=== PATIENT | female | born 1945 | race Caucasian/White ===

== ENCOUNTER 2016-11-05 11:35 | Emergency (ER) | payer OTHER ==
[~2016-11-05] VITALS: Ht 152.4 cm; Wt 89.0 kg
[~2016-11-05 11:35] MED LIST: ACET-1257 PO; ALLO100T PO; AMIO200T4 PO; ASPI81TA28 PO; CALC1TAB23 PO; CLON0.5T3 PO; GABA1CAP PO; INSU100I2 SC; INSUINJ4 SQ; LORA-741 PO; LPT/40 PO; MULTTAB58 PO; NITR0.4S UT; NXM/40 PO; OXGN; SERT100T PO; TRAM-10 PO; ZNTT/150 PO
[2016-11-05 11:43] VITALS: TEMP 36.7; Ht 152.4 cm; Wt 89.0 kg
[2016-11-05] MEDS ORDERED: HYDR-5688 PO (12:19)
[2016-11-05 12:36] LABS: BASO % 0.3 %; BASO ABS # 0.02 K/uL (0-0.2); COMPLETE YES; EOS % 2.7 %; HEMATOCRIT 34.9 % (37-47); IG% 0.5 %; LYMPH % 11.5 %; LYMPH ABS # 0.71 K/uL (1.2-3.4); MEAN CELL VOLUME 100.9 fL (80-100); MEAN CORPUSCULAR HEMOGLOBIN 32.7 pg (25-34); MEAN CORPUSCULAR HGB CONC 32.4 g/dl (32-36); MEAN PLATELET VOLUME 11.3 fL (7.4-10.4); MONO % 6.9 %; NEUT % 78.1 %; PLATELET COUNT 125 K/uL (130-400); RED BLOOD COUNT 3.46 M/uL (4.2-5.4)
--- NOTE | 2016-11-05 13:07 | DIAGNOSTIC IMAGING REPORT ---
SINGLE VIEW CHEST CLINICAL HISTORY: Cough and chills. FINDINGS: An AP, portable, upright chest radiograph is compared to study dated 05/23/2016 and correlated with chest CT dated 11/15/2015. The examination is degraded by portable technique, apical and out of positioning, large body habitus, and patient rotation. A 2-lead cardiac pacemaker is unchanged in position and partially obscures the right mid chest. The heart is enlarged and there is atherosclerotic calcification of the thoracic aorta. There is mild pulmonary vascular congestion. No airspace consolidation, large pleural effusion, or pneumothorax is seen. The skeletal structures are osteopenic. The bony thorax is grossly intact. IMPRESSION: 1. Cardiomegaly and cardiac pacemaker with evidence of mild congestive failure. 2. No airspace consolidation or large pleural effusion is seen. Electronically signed by: Rey Cardoza M.D. 11/05/2016 1:05 PM
[2016-11-05 13:09] LABS: CALCIUM 9.3 mg/dl (8.5-10.1); CREATININE 6.2 mg/dl (0.60-1.20); POTASSIUM 4.4 mmol/L (3.5-5.1)
--- NOTE | 2016-11-05 13:19 | EMERGENCY ROOM VISIT NOTE ---
History Report prepared by Nic: Jf Treviño Under the Supervision of: Dr. Venkatesh Weston M.D. First contact with patient: 12:12 Chief Complaint: COUGH Stated Complaint: COUGH, SOB Nursing Triage Summary: c/o dry cough and c/o chronic back pain dialysis pt History of Present Illness The patient is a 71 year old female who presents to the Emergency Room with complaints of a persistent cough beginning a few days ago. She has associated subjective fevers, nausea, and diarrhea. She denies any vomiting. The patient is on dialysis. She had her flu shot this year. She notes that she has been having some intermittent chest pains for "a while". The patient is on oxygen by nasal cannula at home. Source of History: patient Onset: a few days ago Quality: other (cough) Timing: other (persistent) Associated Symptoms: + diarrhea, + fevers (subjective), + nausea, No vomiting Review of Systems See HPI for pertinent positives & negatives. A total of 10 systems reviewed and were otherwise negative. Past Medical & Surgical Medical Problems: (1) Atrial fibrillation (2) Cardiomegaly (3) Diabetic neuropathy (4) DM2 (diabetes mellitus, type 2) (5) End stage renal disease (6) AC (generalized anxiety disorder) (7) GERD (gastroesophageal reflux disease) (8) Healed or old pulmonary embolism (9) Heart failure (10) HLD (hyperlipidemia) (11) HTN (hypertension) (12) Melanoma (13) Obesity hypoventilation syndrome (14) EV[place] (obstructive sleep apnea) (15) Pacemaker (16) Pulmonary HTN (17) TIA (transient ischemic attack) Surgical Problems: (1) H/O total hysterectomy (2) S/P cholecystectomy (3) S/P IVC filter Family History Diabetes mellitus FH: heart disease Kidney disease Social History Smoking Status: Former Smoker Occupation Status: retired Current/Historical Medications Scheduled Allopurinol (Zyloprim), 100 MG PO QAM Amiodarone Hcl (Cordarone), 400 MG PO DAILY Aspirin (Aspirin Ec), 1 TAB PO QAM Atorvastatin (Lipitor), 40 MG PO QPM Calcium Acetate (Phosphate Bin (Calcium Acetate), 1 TAB PO TIDM Esomeprazole Magnesium (Nexium), 40 MG PO DAILY Gabapentin (Neurontin), 100 MG PO BID Insulin Glargine (Lantus Solostar Pen), 10 UNIT SQ HS Insulin Lispro (Human) (Humalog Kwikpen), 5 UNITS SC AC Multiple Vitamin (Multivitamin), 1 TAB PO QAM Nitroglycerin (Nitrostat), 0.4 MG UT PRN Sertraline Hcl (Zoloft), 100 MG PO QPM Scheduled PRN Acetaminophen (Tylenol Extra Strength), 1 TAB PO Q4HPRN PRN for Pain Clonazepam (Klonopin), 0.5 MG PO UD PRN for Anxiety Hydrocodone/Acetaminophen 5MG/325MG ([place] 5MG/325MG), 1 TABLET PO Q6 PRN for Pain Lorazepam (Ativan), 0.5 MG PO TID PRN for Anxiety/Agitation Oxygen (Oxygen), 2 LITERS NA HS PRN for AND WITH EXERTION Ranitidine (Zantac), 150 MG PO BID PRN for Heartburn Allergies Coded Allergies: Iodinated Diagnostic Agents (Verified Allergy, Mild, "Contrast Media" -- unknown rxn, 11/05/16) Adhesives (Verified Allergy, Unknown, "Tape" -- unknown rxn, 11/05/16) Morphine (Unverified Allergy, Unknown, UNKNOWN, 11/05/16) Warfarin (Unverified Allergy, Unknown, HYPERSENSITIVITY/BLEEDING, 11/05/16) Tomato (Verified Adverse Reaction, Intermediate, GI SYMPTOMS, 11/05/16) Tomato products cause diarrhea. Physical Exam Vital Signs Date Time Temp Pulse Resp B/P Pulse Ox O2 Delivery O2 Flow Rate FiO2 11/05/16 13:57 79 18 153/75 96 11/05/16 11:43 36.7 70 20 135/64 92 2.0 Physical Exam GENERAL: Patient is well appearing and in minimal distress. HEENT: No acute trauma, normocephalic atraumatic, mucous membranes moist, rhinorrhea bilateral nares, no nasal congestion, no scleral icterus. NECK: No stridor, no adenopathy, no meningismus, trachea is midline. LUNGS: No dyspnea. Clear to auscultation and equal bilaterally. No wheeze, no rhonchi. HEART: Irregular rate with a regular rhythm. No murmurs, rubs, gallops appreciated. ABDOMEN: Soft, nontender, bowel sounds positive, no masses appreciated, no peritonitis. BACK: No midline tenderness, no CVA tenderness EXTREMITIES: Normal motion all extremities, no cyanosis, no edema. NEUROLOGIC: Alert and oriented, no acute motor or sensory deficits, no focal weakness, cranial nerves grossly intact. SKIN: No rash, no jaundice, no diaphoresis. Medical Decision & Procedures ER Provider Diagnostic Interpretation: X ray results are stated below per my interpretation and the radiologist's interpretation. SINGLE VIEW CHEST FINDINGS: An AP, portable, upright chest radiograph is compared to study dated 05/23/2016 and correlated with chest CT dated 11/15/2015. The examination is degraded by portable technique, apical and out of positioning, large body habitus, and patient rotation. A 2-lead cardiac pacemaker is unchanged in position and partially obscures the right mid chest. The heart is enlarged and there is atherosclerotic calcification of the thoracic aorta. There is mild pulmonary vascular congestion. No airspace consolidation, large pleural effusion, or pneumothorax is seen. The skeletal structures are osteopenic. The bony thorax is grossly intact. IMPRESSION: 1. Cardiomegaly and cardiac pacemaker with evidence of mild congestive failure. 2. No airspace consolidation or large pleural effusion is seen. Electronically signed by: Rey Cardoza M.D. Laboratory Results 11/05/16 12:20 Red Blood Count 3.46, Mean Corpuscular Volume 100.9, Mean Corpuscular Hemoglobin 32.7, Mean Corpuscular Hemoglobin Concent 32.4, Mean Platelet Volume 11.3, Neutrophils (%) (Auto) 78.1, Lymphocytes (%) (Auto) 11.5, Monocytes (%) ( Auto) 6.9, Eosinophils (%) (Auto) 2.7, Basophils (%) (Auto) 0.3, Neutrophils # ( Auto) 4.84, Lymphocytes # (Auto) 0.71, Monocytes # (Auto) 0.43, Eosinophils # ( Auto) 0.17, Basophils # (Auto) 0.02 11/05/16 12:20 Test 11/05/16 12:20 White Blood Count 6.20 K/uL (4.8-10.8) Red Blood Count 3.46 M/uL (4.2-5.4) Hemoglobin 11.3 g/dL (12.0-16.0) Hematocrit 34.9 % (37-47) Mean Corpuscular Volume 100.9 fL (80-100) Mean Corpuscular Hemoglobin 32.7 pg (25-34) Mean Corpuscular Hemoglobin Concent 32.4 g/dl (32-36) Platelet Count 125 K/uL (130-400) Mean Platelet Volume 11.3 fL (7.4-10.4) Neutrophils (%) (Auto) 78.1 % Lymphocytes (%) (Auto) 11.5 % Monocytes (%) (Auto) 6.9 % Eosinophils (%) (Auto) 2.7 % Basophils (%) (Auto) 0.3 % Neutrophils # (Auto) 4.84 K/uL (1.4-6.5) Lymphocytes # (Auto) 0.71 K/uL (1.2-3.4) Monocytes # (Auto) 0.43 K/uL (0.11-0.59) Eosinophils # (Auto) 0.17 K/uL (0-0.5) Basophils # (Auto) 0.02 K/uL (0-0.2) RDW Standard Deviation 58.0 fL (36.4-46.3) RDW Coefficient of Variation 15.9 % (11.5-14.5) Immature Granulocyte % (Auto) 0.5 % Immature Granulocyte # (Auto) 0.03 K/uL (0.00-0.02) Anion Gap 10.0 mmol/L (3-11) Est Creatinine Clear Calc Drug Dose 8.0 ml/min Estimated GFR () 7.1 Estimated GFR (Non- 6.2 BUN/Creatinine Ratio 5.0 (10-20) Calcium Level 9.3 mg/dl (8.5-10.1) Troponin I 0.047 ng/ml (0-0.045) Influenza Type A Antigen Neg for Influ A (NEG) Influenza Type B Antigen Neg for Influ B (NEG) Laboratory results as reviewed by me. Medications Administered Medications (Trade) Dose Ordered Sig/Tyesha Route Start Time Stop Time Status Last Admin Dose Admin Ondansetron HCl (ZOFRAN ODT 4MG Home Pack) 1 homepack UD ONCE PO 11/05/16 13:30 11/05/16 13:31 DC 11/05/16 13:30 1 HOMEPACK ECG Indication: other (cough) Rate (beats per minute): 70 Rhythm: other (AV paced) Findings: LBBB, prolonged QT ED Course 1212: The patient was evaluated in room A4. A complete history and physical exam was performed. 1315: I checked in on the patient. She is resting comfortably. She would like something for nausea at home. 1330: Reevaluated the patient. Discussed results and discharge instructions: she verbalized understanding and agreement. The patient is ready for discharge. Ordered Zofran Odt 4 mg home pack PO. Medical Decision Differential: Viral, Pharyngitis, Cellulitis, Pneumonia, Influenza, Meningitis, Sepsis, Bacteremia, UTI/Pyelonephritis, Endocrine, Toxicologic, amongst other pathologies entertained. 71 yr old female arrives with cough, runny nose and body aches as well as some nausea. Looks well and in no distress breathing comfortably. Work-up unremarkable. Trop is at baseline. CR consistent with her renal failure on dialysis. CXR without pneumonia. Flu negative. Symptoms ongoing a few days thus would not be tamiflu patient. She is stable, no distress and looks well. Comfortable with discharge. Home with zofran PRN if nausea returns. Impression Primary Impression: Upper respiratory infection Additional Impression: Nausea Scribe Attestation The scribe's documentation has been prepared under my direction and personally reviewed by me in its entirety. I confirm that the note above accurately reflects all work, treatment, procedures, and medical decision making performed by me. Departure Information Dispostion Home / Self-Care Referrals Princess Grant M.D. (PCP) Patient Instructions A Signature Page, [facility] [place], My [facility]
[2016-11-05] MEDS ORDERED: ONDANSETRON HOME PACK 4MG OD TAB PO ONE (13:30)
[2016-11-05 13:57] VITALS: BP 153/75; PULSE 79; O2SAT 96
[2016-11-11] MEDS ORDERED: ATRINS INH (16:36)
[2016-11-11] MEDS ORDERED: PRED10TA PO (16:36)
[2016-11-11] MEDS ORDERED: XPNINS INH (16:36)
[2016-11-11] MEDS ORDERED: GUAI1TAB68 PO (16:36)
[2016-11-11] MEDS ORDERED: ZTHM250 PO (16:36)
[2016-11-11] MEDS ORDERED: HYDR-5688 PO (16:50)
[2016-11-17] MEDS ORDERED: AZIT250T5 PO (10:54)
== END 2016-11-05 13:59 | disposition home or self-care (01) ==
LOC: C.EDB 11:36 → C.EDA 13:59
DX: J06.9 Acute upper respiratory infection, unspecified (principal); R11.0 Nausea; G89.29 Other chronic pain; I50.9 Heart failure, unspecified; I48.91 Unspecified atrial fibrillation; K21.9 Gastro-esophageal reflux disease without esophagitis; Z99.2 Dependence on renal dialysis; Z86.73 Personal history of transient ischemic attack (TIA), and cerebral infarction without residual deficits; Z79.82 Long term (current) use of aspirin; E78.5 Hyperlipidemia, unspecified; I12.0 Hypertensive chronic kidney disease with stage 5 chronic kidney disease or end stage renal disease; G47.33 Obstructive sleep apnea (adult) (pediatric); N18.6 End stage renal disease; Z87.891 Personal history of nicotine dependence

== ENCOUNTER 2016-11-08 16:16 | Inpatient (IN) | payer OTHER ==
[~2016-11-08] VITALS: Ht 152.4 cm; Wt 89.0 kg
[~2016-11-08 16:16] MED LIST changes: +HYDR-5688 PO; -TRAM-10 PO
[2016-11-08] MEDS ORDERED: ALBUTEROL 0.083% NEBU SOLN 3 ML VIAL INH STA (16:48)
[2016-11-08 16:56] LABS: BASO % 0.3 %; BASO ABS # 0.03 K/uL (0-0.2); COMPLETE YES; EOS % 1.2 %; HEMATOCRIT 34.9 % (37-47); IG% 0.2 %; LYMPH % 14.3 %; LYMPH ABS # 1.31 K/uL (1.2-3.4); MEAN CELL VOLUME 98.3 fL (80-100); MEAN CORPUSCULAR HEMOGLOBIN 31.3 pg (25-34); MEAN CORPUSCULAR HGB CONC 31.8 g/dl (32-36); MEAN PLATELET VOLUME 11.6 fL (7.4-10.4); MONO % 5.4 %; NEUT % 78.6 %; PLATELET COUNT 137 K/uL (130-400); RED BLOOD COUNT 3.55 M/uL (4.2-5.4); WHITE BLOOD COUNT 9.15 K/uL (4.8-10.8)
--- NOTE | 2016-11-08 17:09 | DIAGNOSTIC IMAGING REPORT ---
CHEST ONE VIEW PORTABLE CLINICAL HISTORY: cough sob dyspnea COMPARISON STUDY: 11/05/2016 FINDINGS: Moderate increase in cardiac size. Permanent bipolar cardiac pacemaker. Diaphragms smooth. Pulmonary vasculature is prominent. IMPRESSION: Congestive heart failure Electronically signed by: Ben Carranza M.D. 11/08/2016 5:07 PM
[2016-11-08] MEDS ORDERED: ACETAMINOPHEN 500 MG TAB PO STA (17:18)
[2016-11-08 17:20] LABS: PROTHROMBIN TIME (PATIENT) 10.8 SECONDS (9.0-12.0)
[2016-11-08 17:33] LABS: BUN/CREATININE RATIO 5.7 (10-20); CALCIUM 9.4 mg/dl (8.5-10.1); CREATININE 7.4 mg/dl (0.60-1.20); POTASSIUM 4.4 mmol/L (3.5-5.1)
[2016-11-08] MEDS ORDERED: ASPIRIN 81 MG CHEW PO STA (17:45)
[2016-11-08] MEDS ORDERED: LEVAQUIN 500MG / 100ML D5W IV ONE (18:00)
--- NOTE | 2016-11-08 18:13 | EMERGENCY ROOM VISIT NOTE ---
History Report prepared by Nic: Yesenia Alcocer Under the Supervision of: Dr. William Victoria D.O. First contact with patient: 16:42 Chief Complaint: SHORTNESS OF BREATH Stated Complaint: SOB Nursing Triage Summary: pt arrived als from home reported sob, took to puffs of albuteral, pt denies chest pain,n/v. pt reports being here a few days prior for a virus and was on her way to her pcp for a sinus infection when she needed to come to the er. hx of chf and is on dialysis due 11/09/16 History of Present Illness The patient is a 71 year old female who presents to the Emergency Room with complaints of worsening shortness of breath that started [employer]. The patient came to the ED via ambulance from home. She received two puffs of an albuterol inhaler en route. The patient was seen in the ED a few days ago and diagnosed with Influenza. She did not take Tamiflu. The patient was getting ready to go to her PCP earlier today for a sinus infection when she became very short of breath and felt like she needed to come to the ED. The patient has an inhaler at home but it only offered her minimal relief of her symptoms. The patient is on 2 L of nasal cannula oxygen at night and whenever she walks. She is also experiencing a productive cough with dark yellow sputum along with chills and back pain. The patient has been experiencing chest pain with coughing. She also notes that she had 2 episodes where she will experience substernal chest pain following ambulation. She denies nausea and vomiting. The patient receives dialysis 3 times a week. She received a full course of dialysis yesterday. The patient states that she has end stage renal failure and only makes a small amount of urine. The patient denies pain or burning with urination but states that she has been experiencing increased urinary urgency. The patient has a history of congestive heart failure. Source of History: patient Onset: [employer] Position: chest Quality: other (shortness of breath) Timing: worsening Associated Symptoms: + back pain, + chest pain (with coughing), + chills, + cough (productive with dark yellow sputum), No nausea, No vomiting Review of Systems See HPI for pertinent positives & negatives. A total of 10 systems reviewed and were otherwise negative. Past Medical & Surgical Medical Problems: (1) Atrial fibrillation (2) Cardiomegaly (3) Diabetic neuropathy (4) DM2 (diabetes mellitus, type 2) (5) End stage renal disease (6) AC (generalized anxiety disorder) (7) GERD (gastroesophageal reflux disease) (8) Healed or old pulmonary embolism (9) Heart failure (10) HLD (hyperlipidemia) (11) HTN (hypertension) (12) Melanoma (13) Obesity hypoventilation syndrome (14) [place] (obstructive sleep apnea) (15) Pacemaker (16) Pulmonary HTN (17) TIA (transient ischemic attack) Surgical Problems: (1) H/O total hysterectomy (2) S/P cholecystectomy (3) S/P IVC filter Family History Diabetes mellitus FH: heart disease Kidney disease Social History Smoking Status: Unknown if Ever Smoked Occupation Status: retired Current/Historical Medications Scheduled Allopurinol (Zyloprim), 100 MG PO QAM Amiodarone Hcl (Cordarone), 400 MG PO DAILY Aspirin (Aspirin Ec), 1 TAB PO QAM Atorvastatin (Lipitor), 40 MG PO QPM Calcium Acetate (Phosphate Bin (Calcium Acetate), 1 TAB PO TIDM Esomeprazole Magnesium (Nexium), 40 MG PO DAILY Gabapentin (Neurontin), 100 MG PO BID Insulin Glargine (Lantus Solostar Pen), 10 UNIT SQ HS Insulin Lispro (Human) (Humalog Kwikpen), 5 UNITS SC AC Multiple Vitamin (Multivitamin), 1 TAB PO QAM Nitroglycerin (Nitrostat), 0.4 MG UT PRN Sertraline Hcl (Zoloft), 100 MG PO QPM Scheduled PRN Acetaminophen (Tylenol Extra Strength), 1 TAB PO Q4HPRN PRN for Pain Clonazepam (Klonopin), 0.5 MG PO UD PRN for Anxiety Hydrocodone/Acetaminophen 5MG/325MG ([place] 5MG/325MG), 1 TABLET PO Q6 PRN for Pain Lorazepam (Ativan), 0.5 MG PO TID PRN for Anxiety/Agitation Oxygen (Oxygen), 2 LITERS NA HS PRN for AND WITH EXERTION Ranitidine (Zantac), 150 MG PO BID PRN for Heartburn Allergies Coded Allergies: Iodinated Diagnostic Agents (Verified Allergy, Mild, "Contrast Media" -- unknown rxn, 11/05/16) Adhesives (Verified Allergy, Unknown, "Tape" -- unknown rxn, 11/05/16) Morphine (Unverified Allergy, Unknown, UNKNOWN, 11/05/16) Warfarin (Unverified Allergy, Unknown, HYPERSENSITIVITY/BLEEDING, 11/05/16) Tomato (Verified Adverse Reaction, Intermediate, GI SYMPTOMS, 11/05/16) Tomato products cause diarrhea. Physical Exam Vital Signs Date Time Temp Pulse Resp B/P Pulse Ox O2 Delivery O2 Flow Rate FiO2 11/08/16 17:31 70 20 148/66 97 Nasal Cannula 2.0 11/08/16 17:31 70 20 148/66 93 Nasal Cannula 2.0 11/08/16 16:31 88 Room Air 11/08/16 16:31 91 Nasal Cannula 2.0 11/08/16 16:26 37.7 71 18 159/76 88 Room Air Physical Exam GENERAL: alert, sitting up in bed, disheveled appearing, nasal cannula oxygen in place OROPHARYNX: no exudate, no erythema, lips, buccal mucosa, and tongue normal and mucous membranes are moist NECK: supple, no nuchal rigidity, no adenopathy, non-tender LUNGS: Mild wheezing in bilateral bases. Normal chest wall mechanics HEART: S1 normal and S2 normal ABDOMEN: abdomen soft, non-tender, normo-active bowel sounds, no masses, no rebound or guarding. BACK: Back is symmetrical on inspection and there is no deformity, no midline tenderness, no CVA tenderness. SKIN: no rashes and no bruising UPPER EXTREMITIES: upper extremities are grossly normal. Fistula in place, positive thrill. LOWER EXTREMITIES: No pitting edema. NEURO EXAM: Normal sensorium, cranial nerves II-XII grossly intact, normal speech, no gross weakness of arms, no gross weakness of legs. Medical Decision & Procedures ER Provider Diagnostic Interpretation: Xray results per the radiologist and my interpretation. CHEST ONE VIEW PORTABLE CLINICAL HISTORY: cough sob dyspnea COMPARISON STUDY: 11/05/2016 FINDINGS: Moderate increase in cardiac size. Permanent bipolar cardiac pacemaker. Diaphragms smooth. Pulmonary vasculature is prominent. IMPRESSION: Congestive heart failure Electronically signed by: Ben Carranza M.D. 11/08/2016 5:07 PM Laboratory Results 11/08/16 16:20 Red Blood Count 3.55, Mean Corpuscular Volume 98.3, Mean Corpuscular Hemoglobin 31.3, Mean Corpuscular Hemoglobin Concent 31.8, Mean Platelet Volume 11.6, Neutrophils (%) (Auto) 78.6, Lymphocytes (%) (Auto) 14.3, Monocytes (%) (Auto) 5.4, Eosinophils (%) (Auto) 1.2, Basophils (%) (Auto) 0.3, Neutrophils # (Auto) 7.19, Lymphocytes # (Auto) 1.31, Monocytes # (Auto) 0.49, Eosinophils # (Auto) 0.11, Basophils # (Auto) 0.03 11/08/16 16:20 Test 11/08/16 16:00 11/08/16 16:20 11/08/16 17:18 Prothrombin Time 10.8 SECONDS (9.0-12.0) Prothromb Time International Ratio 1.0 (0.9-1.1) White Blood Count 9.15 K/uL (4.8-10.8) Red Blood Count 3.55 M/uL (4.2-5.4) Hemoglobin 11.1 g/dL (12.0-16.0) Hematocrit 34.9 % (37-47) Mean Corpuscular Volume 98.3 fL (80-100) Mean Corpuscular Hemoglobin 31.3 pg (25-34) Mean Corpuscular Hemoglobin Concent 31.8 g/dl (32-36) Platelet Count 137 K/uL (130-400) Mean Platelet Volume 11.6 fL (7.4-10.4) Neutrophils (%) (Auto) 78.6 % Lymphocytes (%) (Auto) 14.3 % Monocytes (%) (Auto) 5.4 % Eosinophils (%) (Auto) 1.2 % Basophils (%) (Auto) 0.3 % Neutrophils # (Auto) 7.19 K/uL (1.4-6.5) Lymphocytes # (Auto) 1.31 K/uL (1.2-3.4) Monocytes # (Auto) 0.49 K/uL (0.11-0.59) Eosinophils # (Auto) 0.11 K/uL (0-0.5) Basophils # (Auto) 0.03 K/uL (0-0.2) RDW Standard Deviation 57.0 fL (36.4-46.3) RDW Coefficient of Variation 15.8 % (11.5-14.5) Immature Granulocyte % (Auto) 0.2 % Immature Granulocyte # (Auto) 0.02 K/uL (0.00-0.02) Anion Gap 14.0 mmol/L (3-11) Est Creatinine Clear Calc Drug Dose 7.2 ml/min Estimated GFR () 5.8 Estimated GFR (Non- 5.0 BUN/Creatinine Ratio 5.7 (10-20) Calcium Level 9.4 mg/dl (8.5-10.1) Total Bilirubin 0.4 mg/dl (0.2-1) Direct Bilirubin 0.2 mg/dl (0-0.2) Aspartate Amino Transf (AST/SGOT) 56 U/L (15-37) Alanine Aminotransferase (ALT/SGPT) 94 U/L (12-78) Alkaline Phosphatase 167 U/L (45-117) Troponin I 0.043 ng/ml (0-0.045) Pro-B-Type Natriuretic Peptide 56998 pg/ml (0-900) Total Protein 7.6 gm/dl (6.4-8.2) Albumin 3.4 gm/dl (3.4-5.0) Laboratory results per my review. Medications Administered Medications (Trade) Dose Ordered Sig/Tyesha Route Start Time Stop Time Status Last Admin Dose Admin Albuterol Sulfate (Ventolin 0.083% 2.5MG/3ML Neb) 2.5 mg NOW STAT INH 11/08/16 16:48 11/08/16 16:49 DC 11/08/16 16:48 2.5 MG Acetaminophen (Tylenol Tab) 1,000 mg NOW STAT PO 11/08/16 17:18 11/08/16 17:19 DC 11/08/16 17:40 1,000 MG ECG Indication: SOB/dyspnea Rate (beats per minute): 70 Rhythm: other (AV Dual paced ) Findings: LBBB, left axis deviation ED Course ED COURSE: Vital signs were reviewed and showed febrile and hypoxic. The patients medical record was reviewed The above diagnostic studies were performed and reviewed. ED treatments and interventions as stated above. 1643: The patient was evaluated in room B6. A complete history and physical examination was performed. 1648: Ordered Albuterol Sulfate 2.5 mg INH 1718: Ordered Tylenol Tab 1000 mg PO 1738: The nurse informed me that the patient was able to ambulate and her pulse ox was 93% the whole time. However, when she sat down she experienced substernal chest pain and shortness of breath. She states that it was the same thing that happened to her earlier. 1739: Upon reevaluation, the patient is resting comfortably. I discussed my findings with the patient and she understands and agrees with the treatment plan. Based on the patients age, coexisting illnesses, exam and lab findings the decision to treat as an inpatient was made. The patient remained stable while under my care. The patient will be evaluated for further management. 1745: Ordered Aspirin 324 mg PO 1800: Ordered Levofloxacin 500 mg IV Medical Decision Differential diagnoses includes but is not limited to pneumonia, bronchitis, COPD/Asthma exacerbation, pneumothorax, pulmonary embolism, congestive heart failure, acute coronary syndrome Patient is a 71-year-old female with a past mental history of ESRD on dialysis, atrial fibrillation s/p pacemaker, type 2 diabetes, chronic respiratory failure with hypoxia on oxygen at bedtime and with exertion, h/o PE, hypertension, [place], lumbar spinal stenosis, obesity hypoventilation syndrome, TIA, GERD, and dyslipidemia presents the ER for cough, diffuse weakness, shortness of breath, right sinus pain and chest pain with exertion. Patient was seen here several days ago and diagnosed with a viral URI and discharge. Patient notes that her symptoms have continued and slightly worsened. She denies any fevers but has a temp of 37.7. No significant leukocytosis or anemia. Creatinine is elevated as expected with end-stage dialysis. AST and ALTs are only slightly elevated. She does have a significant elevation in BNP at 12,000. Troponin was detectable at 0.04. Chest x-ray shows fullness suggesting slight failure but I do not believe she needs emergent dialysis. I question if this could be the cause of her exertional chest pain. She was ambulated in the ER following sitting down she considered to have chest pain shortness of breath. I do favor symptoms are likely exacerbated by a bronchitis. She is given a dose of Levaquin IV along with an albuterol treatment. Case is discussed with internal medicine and she was updated at bedside. She was hypoxic 88% at rest on room air. Case was discussed with internal medicine and she'll be worked up further for her exertional chest pain and worsening hypoxia which I favor secondary to bronchitis and possible volume overload. Consults Time Called: 1741 Consulting Physician: [id number] D/w Jessica Guerra They will eval the Pt for a further work up. Admission will likely be done by Dr. Porras. Impression Primary Impression: Exertional chest pain Additional Impressions: CHF (congestive heart failure), Bronchitis Scribe Attestation The scribe's documentation has been prepared under my direction and personally reviewed by me in its entirety. I confirm that the note above accurately reflects all work, treatment, procedures, and medical decision making performed by me. Departure Information Dispostion Being Evaluated By Hospitalist Referrals Princess Grant M.D. (PCP) Patient Instructions A Signature Page, My [facility]
[2016-11-08] MEDS ORDERED: IV FLUIDS COMPLETED PRN (19:45)
[2016-11-08] MEDS ORDERED: ONDANSETRON INJ 2 MG/ML 2 ML VIAL IV PRN (20:00)
[2016-11-08] MEDS ORDERED: PRVHFAIN INH (20:13)
[2016-11-08] MEDS ORDERED: GLUCOSE 40% GEL 15 GM TUBE PO PRN (20:15)
[2016-11-08] MEDS ORDERED: DEXTROSE 50% 50 ML SYR IV PRN (20:15)
[2016-11-08] MEDS ORDERED: GLUCOSE 10 TABS/TUBE PO PRN (20:15)
[2016-11-08] MEDS ORDERED: NITROGLYCERIN 0.4 MG SL PER TAB CHARGE UT PRN (20:15)
[2016-11-08] MEDS ORDERED: GLUCAGON FOR INJ 1 MG VIAL SQ PRN (20:15)
[2016-11-08] MEDS ORDERED: RANITIDINE HCL 150 MG TAB PO PRN (20:15)
[2016-11-08 20:40] VITALS: BP 132/81; PULSE 76; TEMP 37; O2SAT 98; Ht 152.4 cm; Wt 89.0 kg
[2016-11-08] MEDS ORDERED: LEVALBUTEROL/IPRATROPIUM NEB INH PRN (20:45)
[2016-11-08] MEDS: LEVALBUTEROL 1.25MG/0.5ML NEB INH SCH (21:00)
[2016-11-08] MEDS ORDERED: LEVALBUTEROL 0.63MG/3 ML NEB INH PRN (21:00)
[2016-11-08] MEDS ORDERED: HEPARIN SOD 5000 UNIT/0.5 ML CARP SQ SCH (21:00)
[2016-11-08] MEDS ORDERED: IPRATROPIUM BROMIDE NEB SOLN 0.02% 2.5 ML VIAL INH PRN (21:00)
[2016-11-08] MEDS: IPRATROPIUM BROMIDE NEB SOLN 0.02% 2.5 ML VIAL INH SCH (21:00)
[2016-11-08] MEDS ORDERED: LEVALBUTEROL/IPRATROPIUM NEB INH SCH (21:00)
[2016-11-08] MEDS: HYDROCODONE/ACETAMOPHEN 5/325MG TAB PO PRN (21:52)
[2016-11-08] MEDS: SERTRALINE HCL 100 MG TAB PO SCH (21:53)
[2016-11-08] MEDS: CLONAZEPAM 0.5 MG TAB PO PRN (21:53)
[2016-11-08] MEDS: INSULIN GLARGINE SOLOSTAR 100 UNITS/ML 3 ML PEN SQ SCH (21:54)
[2016-11-08] MEDS: INSULIN ASPART 100 UNITS/ML 3 ML PEN SC SCH (21:55)
[2016-11-08] MEDS: GABAPENTIN 100 MG CAP PO SCH (21:55)
[2016-11-08] MEDS ORDERED: LEVOFLOXACIN CONSULT ACTIVE PRN (21:56)
--- NOTE | 2016-11-08 21:58 | History and Physical ---
History & Physical Date & Time of Service: Nov 08, 2016 at 20:09 Chief Complaint: SOB Primary Care Physician: Princess Grant M.D. History of Present Illness Source: patient, clinic records, hospital records This is a 71 y/o female with PMH of ESRD on dialysis, atrial fibrillation, s/p pacemaker, DM 2, chronic respiratory failure with hypoxia on oxygen at bedtime and as needed, chronic systolic CHF, h/o PE, hypertension, TIA, GERD, HL, and other problems listed below who presents to the ED with SOB and chest pain. Pt follows with Dr. Grant for primary care and Dr. Olivier for cardiology. Patient recently became ill last (6 days ago) with cough productive of yellow sputum, sinus congestion, subjective warmth and chills, myalgias. She was seen in [facility] ER over the weekend and tested negative for influenza and had CXR neg for PNA. She continued to feel ill, then today when ambulating in the [place] her apartment became SOB even on her 2 liters of oxygen which is not usual for her. When she sat down she noticed chest pain described as pressure in central chest without radiation. That lasted 5-10 minutes then resolved. 911 was called and when EMS arrived she took 2 puffs of her inhaler and SOB resolved shortly after. Then in the ER patient was feeling better, then when she got up and walked she became SOB again and had chest pain when she sat down after exerting herself. Chest pain is now resolved. She also had nausea with dry heaves this AM. In the ER she was hypoxic to 89% on RA and improved on 2 liters NC. She is mildly febrile to 37.7. Patient is on dialysis , , Sat with last tx yesterday. Dialyzes in [place] with Dr. Guevara and Dr. Jacques. Her weight is at baseline. No edema. She has chronic orthopnea requiring 2 pillows. No recent hospitalization or antibiotics. Denies history of asthma or COPD. Past Medical/Surgical History Medical Problems: (1) Atrial fibrillation Status: Chronic (2) Cardiomegaly Status: Chronic (3) Diabetic neuropathy Status: Chronic (4) DM2 (diabetes mellitus, type 2) Status: Chronic (5) End stage renal disease Status: Chronic (6) AC (generalized anxiety disorder) Status: Chronic (7) GERD (gastroesophageal reflux disease) Status: Chronic (8) Healed or old pulmonary embolism Status: Chronic (9) Heart failure Status: Chronic (10) HLD (hyperlipidemia) Status: Chronic (11) HTN (hypertension) Status: Chronic (12) Melanoma Status: Chronic (13) Obesity hypoventilation syndrome Status: Chronic (14) [place] (obstructive sleep apnea) Status: Chronic (15) Pacemaker Status: Chronic (16) Pulmonary HTN Status: Chronic (17) TIA (transient ischemic attack) Status: Chronic Surgical Problems: (1) H/O total hysterectomy Status: Chronic (2) S/P cholecystectomy Status: Chronic (3) S/P IVC filter Status: Chronic Family History Diabetes mellitus FH: heart disease FATHER MOTHER Kidney disease Social History Smoking Status: Former Smoker (quit 40 years ago) Alcohol Use: none Drug Use: none Housing status: lives alone (in apartment) Occupational Status: retired Immunizations History of Influenza Vaccine: Yes History of Tetanus Vaccine?: Yes History of Pneumococcal: Yes History of Hepatitis B Vaccine: No Allergies Coded Allergies: Iodinated Diagnostic Agents (Verified Allergy, Mild, "Contrast Media" -- unknown rxn, 11/14/16) Adhesives (Verified Allergy, Unknown, "Tape" -- unknown rxn, 11/14/16) Morphine (Unverified Allergy, Unknown, UNKNOWN, 11/14/16) Warfarin (Unverified Allergy, Unknown, HYPERSENSITIVITY/BLEEDING, 11/14/16) Tomato (Verified Adverse Reaction, Intermediate, GI SYMPTOMS, 11/14/16) Tomato products cause diarrhea. Home Medications Scheduled Allopurinol (Zyloprim), 100 MG PO QAM Amiodarone Hcl (Cordarone), 400 MG PO DAILY Aspirin (Aspirin Ec), 1 TAB PO QAM Atorvastatin (Lipitor), 40 MG PO DAILY Azithromycin (Azithromycin), 250 MG PO QAM Calcium Acetate (Phosphate Bin (Calcium Acetate), 1 TAB PO TIDM Esomeprazole Magnesium (Nexium), 40 MG PO DAILY Gabapentin (Neurontin), 100 MG PO BID Insulin Glargine (Lantus Solostar Pen), 10 UNIT SQ HS Insulin Lispro (Human) (Humalog Kwikpen), 5 UNITS SC AC Multiple Vitamin (Multivitamin), 1 TAB PO QAM Nitroglycerin (Nitrostat), 0.4 MG UT PRN Prednisone Tab (Prednisone), 10 MG PO UD Sertraline Hcl (Zoloft), 100 MG PO BID Scheduled PRN Acetaminophen (Tylenol Extra Strength), 1 TAB PO Q4HPRN PRN for Pain Clonazepam (Klonopin), 0.25 MG PO HS PRN for Anxiety Guaifenesin (Organ-I Nr), 200 MG PO Q8H PRN for Cough Hydrocodone/Acetaminophen 5MG/325MG (Holgate 5MG/325MG), 1 TABLET PO Q12 PRN for Pain Ipratropium [place] (Ipratropium [place]), 1 VIAL NEB QID PRN for SOB/Wheezing Levalbuterol (Levalbuterol HCl), 0.63 MG INH QID PRN for SOB/Wheezing Lorazepam (Ativan), 0.5 MG PO TID PRN for Anxiety/Agitation Oxygen (Oxygen), 2 LITERS NA HS PRN for AND WITH EXERTION Ranitidine (Zantac), 150 MG PO BID PRN for Heartburn Review of Systems Constitutional: + chills, + fever, No sweats Eyes: No worsening of vision ENT: + nasal symptoms, No sore throat Respiratory: + cough, + dyspnea on exertion, + sputum Cardiovascular: + chest pain, + orthopnea (chronic), No edema, No palpitations Abdomen: + nausea (dry heaving this am), No diarrhea, No pain, No vomiting Musculoskeletal: + muscle pain (diffuse myalgias), + problem reported (chronic LLE pain, RLE relatively new pain from hip to foot, no trauma) Genitourinary - Female: + problem reported (produces small amount of urine due to ESRD), No dysuria Neurologic: No problem reported (no dizziness) Integumentary: No new/changing skin lesions Physical Exam Vital Signs Date Time Temp Pulse Resp B/P Pulse Ox O2 Delivery O2 Flow Rate FiO2 11/08/16 19:56 37.7 68 18 128/64 97 11/08/16 19:54 68 18 128/64 11/08/16 17:31 70 20 148/66 97 Nasal Cannula 2.0 11/08/16 17:31 70 20 148/66 93 Nasal Cannula 2.0 11/08/16 16:31 88 Room Air 11/08/16 16:31 91 Nasal Cannula 2.0 11/08/16 16:26 37.7 71 18 159/76 88 Room Air General Appearance: no apparent distress, + obese, + pertinent finding ( pleasant cooperative alert elderly female) Head: normocephalic, atraumatic Eyes: normal inspection, PERRL, EOMI ENT: hearing grossly normal, TMs normal, pharynx normal Neck: supple, no JVD, trachea midline Respiratory/Chest: no respiratory distress, no accessory muscle use, + pertinent finding (coughing during exam, scattered rhonchi, crackles bilateral bases) Cardiovascular: regular rate, rhythm Abdomen/GI: normal bowel sounds, non tender, soft Extremities/Musculoskelatal: normal inspection, no calf tenderness, no pedal edema, + pertinent finding (DP pulses 2+ bilaterally) Neurologic/Psych: alert, normal mood/affect, oriented x 3, + pertinent finding (grossly without focal deficit) Skin: normal color, warm/dry, no rash Diagnostics Laboratory Results Results Past 24 Hours Test 11/08/16 16:00 11/08/16 16:20 11/08/16 17:18 Range/Units Prothrombin Time 10.8 9.0-12.0 SECONDS Prothromb Time International Ratio 1.0 0.9-1.1 White Blood Count 9.15 4.8-10.8 K/uL Red Blood Count 3.55 4.2-5.4 M/uL Hemoglobin 11.1 12.0-16.0 g/dL Hematocrit 34.9 37-47 % Mean Corpuscular Volume 98.3 80-100 fL Mean Corpuscular Hemoglobin 31.3 25-34 pg Mean Corpuscular Hemoglobin Concent 31.8 32-36 g/dl Platelet Count 137 130-400 K/uL Mean Platelet Volume 11.6 7.4-10.4 fL Neutrophils (%) (Auto) 78.6 % Lymphocytes (%) (Auto) 14.3 % Monocytes (%) (Auto) 5.4 % Eosinophils (%) (Auto) 1.2 % Basophils (%) (Auto) 0.3 % Neutrophils # (Auto) 7.19 1.4-6.5 K/uL Lymphocytes # (Auto) 1.31 1.2-3.4 K/uL Monocytes # (Auto) 0.49 0.11-0.59 K/uL Eosinophils # (Auto) 0.11 0-0.5 K/uL Basophils # (Auto) 0.03 0-0.2 K/uL RDW Standard Deviation 57.0 36.4-46.3 fL RDW Coefficient of Variation 15.8 11.5-14.5 % Immature Granulocyte % (Auto) 0.2 % Immature Granulocyte # (Auto) 0.02 0.00-0.02 K/uL Sodium Level 138 136-145 mmol/L Potassium Level 4.4 3.5-5.1 mmol/L Chloride Level 98 98-107 mmol/L Carbon Dioxide Level 26 21-32 mmol/L Anion Gap 14.0 3-11 mmol/L Blood Urea Nitrogen 42 7-18 mg/dl Creatinine 7.40 0.60-1.20 mg/dl Est Creatinine Clear Calc Drug Dose 7.2 ml/min Estimated GFR () 5.8 Estimated GFR (Non- 5.0 BUN/Creatinine Ratio 5.7 10-20 Random Glucose 197 70-99 mg/dl Calcium Level 9.4 8.5-10.1 mg/dl Total Bilirubin 0.4 0.2-1 mg/dl Direct Bilirubin 0.2 0-0.2 mg/dl Aspartate Amino Transf (AST/SGOT) 56 15-37 U/L Alanine Aminotransferase (ALT/SGPT) 94 12-78 U/L Alkaline Phosphatase 167 45-117 U/L Troponin I 0.043 0-0.045 ng/ml Pro-B-Type Natriuretic Peptide 70243 0-900 pg/ml Total Protein 7.6 6.4-8.2 gm/dl Albumin 3.4 3.4-5.0 gm/dl Influenza Type A Antigen Neg for Influ A NEG Influenza Type B Antigen Neg for Influ B NEG Diagnostic Radiology CHEST ONE VIEW PORTABLE CLINICAL HISTORY: cough sob dyspnea COMPARISON STUDY: 11/05/2016 FINDINGS: Moderate increase in cardiac size. Permanent bipolar cardiac pacemaker. Diaphragms smooth. Pulmonary vasculature is prominent. IMPRESSION: Congestive heart failure EKG AV dual paced rhythm Impression Assessment and Plan SHORTNESS OF BREATH Has underlying chronic respiratory failure on 2L HS and PRN activity, sat 88% on RA in ER while at rest, improved with supplemental O2 Likely multifactorial from acute bronchitis and acute on chronic systolic CHF Has fever 37.7, no leukocytosis, no tachycardia or hypotension CXR- congestive failure, no infiltrate; + elevated BNP >12,000 Fluid status will be managed with dialysis Treated with empiric Levaquin in ER for bronchitis- continue for now Recheck CXR after dialysis tomorrow to r/o infiltrate Check sputum culture, blood cultures, procalcitonin, influenza PCR Neb treatments CHEST PAIN Rule out ACS- risk factors ESRD, DM, HTN, HL EKG- paced rhythm, no significant change from prior EKG Troponin 0.043- stable since May 2016 Prior cath May 2012 showed non obstructive CAD Given aspirin 324 mg in ER Trend serial cardiac enzymes Consult cardiology CHRONIC SYSTOLIC CHF/ PULMONARY HTN Prior echo 07/01/16- mild concentric LVH. Mildly reduced LV systolic function with abnormal septal wall motion consistent with RV pressure/volume overload and borderline global hypokinesis, EF 40-45%. Mild MR. Severe TR. Mild biatrial enlargement. Dilated RV chamber with reduced RV systolic function by TAPSE. Severe pulmonary hypertension is present. Appears volume overloaded with CXR showing congestive findings, BNP elevated Fluid management with dialysis tomorrow ESRD ON HD Dialysis Sunday Consult nephrology for dialysis DM TYPE 2 Continue Lantus Insulin sliding scale coverage Monitor BSG AC HS PAROXYSMAL ATRIAL FIBRILLATION Not on Coumadin due to history of hemorrhagic pericardial effusion/ tamponade Continue amiodarone SYMPTOMATIC BRADYCARDIA S/p pacemaker HISTORY OF DVT/ PE s/p IVC filter Not on anticoagulation SLEEP APNEA/ OBESITY HYPOVENTILATION Continue bipap HS Continue nocturnal O2 HYPERTENSION BP is stable HISTORY OF TIA Continue aspirin, statin DEPRESSION Continue Zoloft GERD Continue PPI and Zantac DVT PROPHYLAXIS SCD's due to history of hemorrhagic pericardial effusion Patient seen in collaboration with Dr. Wilkes. Please see his addendum. Attending Addendum Pt was seen and examined. Agree with Jolanta exam, assessment and plan. Patient said that for the last few day she has been feeling sick. Pt said that she has been having a yellowish productive cough associated with SOB, nasal congestion, feeling warmth and chills. She was seen over the weekend at [facility] and tested negative for influenza. General- No acute distress Head- atraumatic Eyes- PERRL, EOMI ENT- oropharynx clear Neck- supple, no JVD Lungs- crackles at bases Heart- regular rhythm, S1/S2 normal Abdomen- normal bowel sounds, soft A/P SHORTNESS OF BREATH Possible related to acute bronchitis Vs acute on chronic systolic CHF Febrile, no leukocytosis. CXR showed congestive heart failure Received Levaquin in ER for bronchitis, will continue levaquin will repeat cxr tomorrow after HD Check sputum culture, blood cultures, procalcitonin, influenza PCR continue monitor pt. Lab, CXR and EKG reviewed Please refer to Jolanta's PA documentation for other problems Cristóbal Wilkes MD VTE Prophylaxis VTE Risk Assessment Done? Y/N: Yes Risk Level: High
[2016-11-08 22:20] LABS: CKMB/CK RATIO 2.5 (0-3.0)
[2016-11-08] MEDS ORDERED: PROMETHAZINE HCL INJ 12.5 MG in SODIUM CHLORIDE 0.9% 50ML 50 ML IV STA (22:48)
[2016-11-08 22:52] LABS: INFLUENZA A PCR Neg for Influ A (NEG); INFLUENZA B PCR Neg for Influ B (NEG)
[2016-11-08] MEDS ORDERED: PROMETHAZINE HCL INJ 12.5 MG in SODIUM CHLORIDE 0.9% 50ML 50 ML IV PRN (23:00)
[2016-11-08 23:06] VITALS: BP 124/76; PULSE 71; TEMP 36.9; O2SAT 96
[2016-11-09] VITALS (25 sets, daily range): BP systolic 95–150; BP diastolic 44–77; PULSE 63–76; TEMP 36.2–37; O2SAT 91–98
[2016-11-09] MEDS: LORAZEPAM 0.5 MG TAB PO PRN ×2 (00:41→23:28)
[2016-11-09] MEDS: LEVALBUTEROL 1.25MG/0.5ML NEB INH SCH ×4 (01:55→19:04)
[2016-11-09] MEDS: IPRATROPIUM BROMIDE NEB SOLN 0.02% 2.5 ML VIAL INH SCH ×4 (01:55→19:04)
[2016-11-09] MEDS: ROPINIROLE HCL 0.25 MG TAB PO SCH (02:06)
[2016-11-09] MEDS: HYDROCODONE/ACETAMOPHEN 5/325MG TAB PO PRN ×2 (03:12→23:31)
[2016-11-09] MEDS ORDERED: CYCLOBENZAPRINE HCL 5 MG TAB PO ONE (04:15)
[2016-11-09] MEDS ORDERED: MAGNESIUM SULFATE 1GM / D5W 1 GM in PREMIXED IN D5W 100 ML IV STA (04:24)
[2016-11-09 05:09] LABS: CHOLESTEROL/HDL RATIO 2.1; CKMB/CK RATIO 2.5 (0-3.0)
[2016-11-09] MEDS: INSULIN ASPART 100 UNITS/ML 3 ML PEN SC SCH ×4 (07:00→20:27)
[2016-11-09] MEDS: ACETAMINOPHEN 325 MG TAB PO PRN (07:43)
[2016-11-09] MEDS: GABAPENTIN 100 MG CAP PO SCH ×2 (07:44→20:23)
[2016-11-09] MEDS: SERTRALINE HCL 100 MG TAB PO SCH ×2 (07:44→20:23)
[2016-11-09] MEDS: AMIODARONE 200 MG TAB PO SCH (07:44)
[2016-11-09] MEDS: PANTOprazole SOD 40 MG TAB PO SCH (07:45)
[2016-11-09] MEDS: ASPIRIN 81 MG ECTAB PO SCH (07:45)
[2016-11-09] MEDS: CALCIUM ACETATE 667MG GELCAP PO SCH ×3 (07:45→16:45)
[2016-11-09] MEDS: ATORVASTATIN 40 MG TAB PO SCH (07:46)
[2016-11-09] MEDS: ALLOPURINOL 100 MG TAB PO SCH (07:46)
[2016-11-09] MEDS: MULTIVITAMIN TAB PO SCH (07:46)
[2016-11-09 08:37] LABS: HEMATOCRIT 30.8 % (37-47); MEAN CELL VOLUME 98.7 fL (80-100); MEAN CORPUSCULAR HEMOGLOBIN 32.1 pg (25-34); MEAN CORPUSCULAR HGB CONC 32.5 g/dl (32-36); MEAN PLATELET VOLUME 11.2 fL (7.4-10.4); PLATELET COUNT 100 K/uL (130-400); RED BLOOD COUNT 3.12 M/uL (4.2-5.4); WHITE BLOOD COUNT 8.24 K/uL (4.8-10.8)
[2016-11-09 09:33] LABS: BUN/CREATININE RATIO 6.7 (10-20); CALCIUM 9.1 mg/dl (8.5-10.1); CREATININE 8.4 mg/dl (0.60-1.20); MAGNESIUM 2.5 mg/dl (1.8-2.4); PHOSPHORUS 4.5 mg/dl (2.5-4.9); POTASSIUM 5.1 mmol/L (3.5-5.1)
--- NOTE | 2016-11-09 13:16 | ECHOCARDIOGRAM REPORT ---
*NOTICE TO RECEIVING REPUBLICAN AGENCY This information is strictly Confidential and protected under [place] law. [place] law prohibits you from making any further disclosure of this information unless further disclosure is expressly permitted by the written consent of the person to whom it pertains or is authorized by law. A general authorization for the release of medical or other information is not sufficient for this purpose. Hospital accepts no responsibility if the information is made available to any other person, INCLUDING THE PATIENT. Interpretation Summary * Name: JUDY CLAY Study Date: 11/09/2016 11:52 AM BP: 150/77 mmHg * Patient Location: C.2T\S\E220\S\1 HR: 69 * : 1945 (M/d/yy) Gender: Female Height: 60 in * Age: 71 yrs Ethnicity: CA Weight: 200 lb * Ordering Physician: Asif Olivier * Referring Physician: Self, Referred * Performed By: Annabella Jacob RCS * * Reason For Study: CHEST PAIN * BSA: 1.9 m2 * -- Conclusions -- * Compared to previous study of 07/03/16: LV systolic function slightly improved. * Normal LV chamber size with moderate concentric LVH. * Mildly reduced LV systolic function, EF 45-50%. * Flattened septum is consistent with RV pressure/volume overload. * Dilated RV chamber with reduced RV systolic function by TAPSE. * Grade II diastolic dysfunction. * Mild mitral regurgitation. * Severe tricupid regurgitation. * Mild left atrial enlargement. * Pulmonary hypertension is present. * PASP of 74 mmHg assuming RA pressure of 8 mmHg (stable). Procedure Details * A complete two-dimensional transthoracic echocardiogram was performed (2D, M-mode, Doppler and color flow Doppler). * A contrast injection of Definity was performed to improve assessment of LV function. * Contrast was injected into an intravenous site in the right arm. * One vial of Definity ultrasound contrast was diluted in normal saline to a total volume of 10 ml. A total of '2' ml of solution was administered during imaging. * Lot # [id number] of Definity utilized for procedure. * Expiration date 1 APR 21. * The attending nurse who injected the contrast agent was JENNA SANDY RN. Left Ventricle * The left ventricle is normal in size. * There is no thrombus. * There is moderate concentric left ventricular hypertrophy. * Ejection Fraction = 45-50%. * Left ventricular systolic function is mildly reduced. * Flattened septum is consistent with RV pressure/volume overload. Right Ventricle * The right ventricular cavity size is enlarged (proximal parasternal long axis right ventricular outflow tract dimension >3.3 cm). * The right ventricular systolic function is reduced as assessed by tricuspid annular plane systolic excursion (TAPSE) (TAPSE <1.6 cm). Atria * The left atrium is mildly dilated. * Right atrial size is normal. * No ASD detected; PFO is not assessed. Mitral Valve * The mitral valve anatomy is normal. * There is no mitral valve stenosis. * There is mild mitral regurgitation. Tricuspid Valve * The tricuspid valve anatomy is normal. * There is no tricuspid stenosis. * There is severe tricuspid regurgitation. Aortic Valve * The aortic valve is normal in structure and function. Pulmonic Valve * The pulmonary valve is not well seen, but the Doppler examination is normal without significant regurgitation or stenosis. Great Vessels * The aortic root is normal size. Pericardium/Pleural * There is no pericardial effusion. Left Ventricular Diastolic Function * Diastolic dysfunction, Grade II (pseudonormalization pattern). MMode 2D Measurements and Calculations IVSd 1.6 cm IVSs 1.7 cm LVIDd 4.8 cm LVIDs 3.7 cm LVPWd 1.4 cm LVPWs 1.6 cm IVS/LVPW 1.2 FS 22.1 % EDV(Teich) 105.1 ml ESV(Teich) 58.1 ml EF(Teich) 44.7 % EDV(cubed) 107.3 ml ESV(cubed) 50.6 ml EF(cubed) 52.8 % % IVS thick 9.1 % % LVPW thick 19.3 % LV mass(C)d 291.0 grams LV mass(C)dI 155.9 grams/m\S\2 LV mass(C)s 250.3 grams LV mass(C)sI 134.1 grams/m\S\2 SV(Teich) 46.9 ml SI(Teich) 25.1 ml/m\S\2 SV(cubed) 56.7 ml SI(cubed) 30.4 ml/m\S\2 Ao root diam 3.5 cm Ao root area 9.5 cm\S\2 ACS 1.9 cm LA dimension 4.6 cm LA/Ao 1.3 LVOT diam 2.0 cm LVOT area 3.1 cm\S\2 LVAd ap4 30.2 cm\S\2 LVLd ap4 7.4 cm EDV(MOD-sp4) 101.6 ml EDV(sp4-el) 104.8 ml LVAs ap4 22.5 cm\S\2 LVLs ap4 6.6 cm ESV(MOD-sp4) 60.8 ml ESV(sp4-el) 65.5 ml EF(MOD-sp4) 40.2 % EF(sp4-el) 37.5 % LVAd ap2 27.1 cm\S\2 LVLd ap2 6.7 cm EDV(MOD-sp2) 94.2 ml EDV(sp2-el) 92.9 ml LVAs ap2 19.2 cm\S\2 LVLs ap2 6.0 cm ESV(MOD-sp2) 51.9 ml ESV(sp2-el) 52.0 ml EF(MOD-sp2) 44.9 % EF(sp2-el) 44.1 % LVLd %diff -10.17 % EDV(MOD-bp) 104.2 ml LVLs %diff -9.19 % ESV(MOD-bp) 59.4 ml EF(MOD-bp) 43.0 % SV(MOD-sp4) 40.8 ml SI(MOD-sp4) 21.9 ml/m\S\2 SV(MOD-sp2) 42.3 ml SI(MOD-sp2) 22.7 ml/m\S\2 SV(MOD-bp) 44.8 ml SI(MOD-bp) 24.0 ml/m\S\2 SV(sp4-el) 39.3 ml SI(sp4-el) 21.1 ml/m\S\2 SV(sp2-el) 40.9 ml SI(sp2-el) 21.9 ml/m\S\2 Doppler Measurements and Calculations MV E max candice 114.3 cm/sec MV A max candice 41.5 cm/sec MV E/A 2.8 MV P1/2t max candice 122.0 cm/sec MV P1/2t 85.0 msec MVA(P1/2t) 2.6 cm\S\2 MV dec slope 420.5 cm/sec\S\2 MV dec time 0.19 sec Ao V2 max 154.2 cm/sec Ao max PG 9.5 mmHg Ao max PG (full) 6.9 mmHg SHIRA(V,A) 1.6 cm\S\2 SHIRA(V,D) 1.6 cm\S\2 LV V1 max PG 2.7 mmHg LV V1 max 81.4 cm/sec MR max candice 470.4 cm/sec MR max PG 88.5 mmHg TR max candice 405.7 cm/sec
--- NOTE | 2016-11-09 13:23 | CARDIOLOGY CONSULTATION ---
DATE OF CONSULTATION: 11/09/2016 CONSULTATION REQUESTED BY: Dr. Wilkes. REASON FOR CONSULTATION: Chest pain. HISTORY OF PRESENT ILLNESS: Mrs. Branch is a very pleasant 71-year-old woman who normally follows with myself as an outpatient. She presented to [facility] late in the evening of 11/08/2016 with a complaint of shortness of breath and productive cough. She states that her symptoms started approximately 1 week ago. She started developing significant sinus congestion, a productive cough, postnasal drip as well as myalgias. She was recently seen in the ER and had testing done for influenza, which was negative and chest x-ray was negative for pneumonia. Over the next several days, her shortness of breath continued to worsen as did her cough. Along the same time period, she started developing chest discomfort. She states her chest discomfort is completely pleuritic in nature. She states whenever she takes a deep breath or coughs violently she will have pain at her left sternal border. It is somewhat reproducible with palpation. Otherwise, she denies any palpitations, lightheadedness, dizziness, or syncope. PAST SURGICAL HISTORY: 1. Breast biopsy. 2. Upper endoscopy. 3. Permanent pacemaker placement. 4. Cholecystectomy. 5. Total abdominal hysterectomy. MEDICAL ILLNESSES: 1. End-stage renal disease, on hemodialysis. 2. History of paroxysmal atrial fibrillation, not a Coumadin candidate. 3. History of hemorrhagic pericardial effusion/tamponade. 4. Obstructive sleep apnea on nocturnal CPAP. 5. Diabetes. 6. History of symptomatic bradycardia status post permanent pacemaker placement. 7. History of TIA. 8. History of multiple DVTs and PEs. 9. Chronic respiratory failure on home O2. 10. Ambulatory dysfunction. FAMILY HISTORY: Noncontributory. SOCIAL HISTORY: Denies any alcohol, tobacco or recreational drug use. REVIEW OF SYSTEMS: As per HPI, all other review of systems reviewed and negative at this time. ALLERGIES: 1. COUMADIN. 2. IODINATED CONTRAST AGENTS, MORPHINE. 3. TAPE. MEDICATIONS AN OUTPATIENT: 1. Amiodarone 400 mg daily. 2. Aspirin 81 mg daily. 3. Atorvastatin 40 mg daily. 4. Insulin as directed. 5. Oxygen 2 liters nasal cannula continuous. 6. Klonopin daily. 7. Zantac b.i.d. 8. Nexium daily. PHYSICAL EXAMINATION: VITAL SIGNS: Temperature 37, pulse 71, respiratory rate 12, blood pressure 150/77, saturating 97% on 2 liters nasal cannula. GENERAL: Awake, alert, oriented x3, in no acute distress. HEENT: Normocephalic, atraumatic. Pupils are equal, round, and reactive to light and accommodation. Extraocular muscles intact. Anicteric sclerae. Moist mucous membranes. NECK: No JVD, no bruit. CARDIOVASCULAR: Regular. Positive S4. Normal S1 and S2. No S3. PULMONARY: Diffuse rhonchi. No rales or wheezing. ABDOMEN: Bowel sounds x4, soft. No rebound, guarding, tenderness. No organomegaly. EXTREMITIES: No clubbing, cyanosis or edema. +2 pedal pulses bilaterally. SKIN: Warm and dry. IMPRESSION: 1. Likely acute sinusitis. 2. Musculoskeletal chest pain. 3. End-stage renal disease, on hemodialysis. 4. Nonischemic cardiomyopathy, ejection fraction 40-45%. 5. Severe pulmonary hypertension. RECOMMENDATIONS: It was my pleasure to see Ms. Branch in reevaluation today. From a cardiac standpoint, the chest pain is nonischemic in origin given the fact that it is pleuritic and reproducible, so no further cardiac testing or intervention is necessary. I would recommend treatment for her acute sinusitis. Otherwise, she should be maintained on her outpatient cardiac medications. I will hold off on lowering her amiodarone dose at this time given that any acute infection could increase her risk of going back into atrial fibrillation. Otherwise, she is not a Coumadin candidate, no anticoagulation will be started.
--- NOTE | 2016-11-09 15:01 | NEPHROLOGY CONSULTATION ---
DATE OF CONSULTATION: 11/09/2016 DATE OF CONSULTATION: 11/09/2016. ATTENDING OF RECORD: Dr. Wilkes. REASON FOR CONSULTATION: ESRD. HISTORY OF PRESENT ILLNESS: This is a 71-year-old female who dialyzes at the [facility] on Tuesdays, , Saturdays. Last dialysis treatment was Sunday. The patient has been on dialysis for about [address] years [address] with Dr. Rosado and Dr. Jacques as her primary nephrologists. She also follows with Dr. Olivier for cardiology. The patient had been feeling sick for the past week with a productive cough, sinus congestion, chills, muscle aches. The patient was evaluated earlier in the week and a chest x-ray was not impressive. The patient though continued to worsen and was having worsening shortness of breath as well as chest pain and nausea with decreased appetite. The patient was brought into the Emergency Room and admitted. The patient's chest x-ray is suggestive of congestive failure with an elevated BNP greater than 12,000 and was started on antibiotics of Levaquin 250 mg IV q. 2 days as well as nebulizers. The patient's troponin was elevated at 0.071. The patient was evaluated by cardiology who thought the patient likely had acute sinusitis as well as severe pulmonary hypertension with nonischemic cardiomyopathy with an EF of 40-45% and is recommending no further cardiac testing. REVIEW OF SYSTEMS: Positive for anorexia. Positive nausea. No vomiting. Positive shortness of breath. Positive chest pain which has improved. No dysphagia. No blurry vision. No rash or itching. Urinates only minimally. All other review of systems otherwise negative. PAST SURGICAL HISTORY: Pacemaker, hysterectomy and cholecystectomy. PAST MEDICAL HISTORY: Atrial fibrillation, type 2 diabetes, generalized anxiety, congestive heart failure, hypertension, obesity hypoventilation syndrome with obstructive sleep apnea, pulmonary hypertension and end-stage renal disease. FAMILY HISTORY: Significant for diabetes. SOCIAL HISTORY: Former smoker, no alcohol, no drugs. Lives alone. CURRENT MEDICATIONS: Levaquin 250 mg IV every 2 days, Requip 0.25 mg at night, allopurinol 100 mg daily, amiodarone 400 mg daily, aspirin 81 mg daily, Lipitor 40 mg daily, multivitamin daily, Protonix 40 mg daily, PhosLo 1 p.o. t.i.d. with meals, Neurontin 100 mg p.o. b.i.d., Lantus 10 units subQ at night, Zoloft 100 mg p.o. b.i.d., nebulizers. PHYSICAL EXAMINATION: VITAL SIGNS: Temperature 37, pulse 70, respiratory rate 18, blood pressure 150/77, satting 97% on 2 liters. GENERAL: Awake, alert, oriented x3. EYES: No scleral icterus. EARS, NOSE, THROAT: Moist mucous membranes. NECK: Supple. PULMONARY: Positive end expiratory wheeze. CARDIAC: Regular rate and rhythm. ABDOMEN: Bowel sounds positive, soft, nontender. EXTREMITIES: No significant edema. NEUROLOGICALLY: Nonfocal. DERMATOLOGIC: No rash or ulcers noted. LABORATORIES: Sodium is 136, potassium is 5.1, chloride is 96, bicarbonate is 27, BUN is 57, creatinine is 8.4, glucose 213, calcium is 9.1, phosphorus 4.5, mag is 2.5. White count is 8.2, H\T\H 10 and 30, platelet count 100, flu is negative. Chest x-ray shows congestive heart failure. IMPRESSION: 1. End-stage renal disease: The patient with end expiratory wheeze with findings of congestive failure on clinical exam. Outpatient dialysis informed me that it is difficult to remove a significant amount of fluid on patient. Will try to remove 2 liters today as tolerated and will reevaluate tomorrow to see if any benefit of further ultrafiltration via dialysis. Will plan on dialysis today on a 2K bath to help lower the potassium of 5.1. 2.Anemia of ESRD:Hemoglobin level is good at 10 and will hold off on Procrit for now, but will reevaluate later in the week for additional dose of Procrit on dialysis. 3. Renal osteodystrophy. We will continue patient's phosphate binders and follow phosphorus levels intermittently. I appreciate consultation. IHSAN
[2016-11-09] MEDS ORDERED: PERFLUTREN LIPID MICROSPHERE (DEFINITY) IV ONE (15:54)
--- NOTE | 2016-11-09 19:41 | Progress Note ---
Medicine Progress Note Date & Time of Visit: Nov 09, 2016 at 19:28. Subjective Pt was seen and examined Lying in bed with no acute distress Pt said that she feels slightly better She said that she does not have the chest pressure anymore denies any chest pain, palpitation She still having SOB that is worsening with exertion Objective Last 8 Hrs Date Time Temp Pulse Resp B/P Pulse Ox O2 Delivery O2 Flow Rate FiO2 11/09/16 19:05 70 18 96 Nasal Cannula 2.0 11/09/16 18:29 36.8 70 20 107/54 91 Nasal Cannula 2.0 11/09/16 17:50 36.4 65 114/58 11/09/16 17:45 67 106/49 11/09/16 17:30 69 110/44 11/09/16 17:15 70 116/50 11/09/16 17:00 76 112/49 11/09/16 16:45 70 118/59 11/09/16 16:30 63 123/55 11/09/16 16:15 70 131/64 11/09/16 16:00 98 Nasal Cannula 2.0 11/09/16 16:00 66 120/59 11/09/16 15:45 70 111/60 11/09/16 15:30 69 126/52 11/09/16 15:15 73 119/51 11/09/16 15:00 68 121/49 11/09/16 14:45 36.2 68 124/65 11/09/16 14:45 70 131/56 11/09/16 14:11 70 18 97 Nasal Cannula 2.0 11/09/16 12:00 98 Nasal Cannula 2.0 11/09/16 11:31 37.0 71 20 150/77 97 Nasal Cannula 2.0 Physical Exam: General- No acute distress Head- atraumatic Eyes- PERRL, EOMI ENT- oropharynx clear Neck- supple, no JVD Lungs- Decrease breath sound at base Heart- regular rhythm; no murmur Abdomen- normal bowel sounds, soft, nontender Extremities-no calf tenderness Neuro- alert, oriented x 3; PERRL, EOMI; Skin- warm & dry Laboratory Results: Last 24 Hours Test 11/08/16 20:36 11/08/16 21:00 11/08/16 21:37 11/09/16 04:17 Bedside Glucose 141 mg/dl Influenza Type A (RT-PCR) Neg for Influ A Influenza Type B (RT-PCR) Neg for Influ B Total Creatine Kinase 65 U/L 64 U/L Creatine Kinase MB 1.6 ng/ml 1.6 ng/ml Creatine Kinase MB Ratio 2.5 2.5 Troponin I 0.071 ng/ml 0.062 ng/ml Triglycerides Level 89 mg/dl Cholesterol Level 113 mg/dl HDL Cholesterol 53 mg/dl LDL Cholesterol, Calculated 42 mg/dl VLDL Cholesterol, Calculated 18 mg/dl Cholesterol/HDL Ratio 2.1 Test 11/09/16 06:23 11/09/16 08:27 11/09/16 11:25 11/09/16 12:30 Bedside Glucose 173 mg/dl 241 mg/dl White Blood Count 8.24 K/uL Red Blood Count 3.12 M/uL Hemoglobin 10.0 g/dL Hematocrit 30.8 % Mean Corpuscular Volume 98.7 fL Mean Corpuscular Hemoglobin 32.1 pg Mean Corpuscular Hemoglobin Concent 32.5 g/dl RDW Standard Deviation 57.5 fL RDW Coefficient of Variation 15.9 % Platelet Count 100 K/uL Mean Platelet Volume 11.2 fL Sodium Level 136 mmol/L Potassium Level 5.1 mmol/L Chloride Level 96 mmol/L Carbon Dioxide Level 27 mmol/L Anion Gap 13.0 mmol/L Blood Urea Nitrogen 57 mg/dl Creatinine 8.40 mg/dl Est Creatinine Clear Calc Drug Dose 6.0 ml/min Estimated GFR () 4.9 Estimated GFR (Non- 4.3 BUN/Creatinine Ratio 6.7 Random Glucose 213 mg/dl Calcium Level 9.1 mg/dl Phosphorus Level 4.5 mg/dl Magnesium Level 2.5 mg/dl Hepatitis B Surface Antigen NEG Test 11/09/16 18:24 Bedside Glucose 144 mg/dl Date/Time Source Procedure Growth Status 11/08/16 21:45 Blood Blood Culture Pending Received 11/08/16 21:37 Blood Blood Culture Pending Received 11/08/16 21:00 Nasal MRSA DNA Surveillance Screen - Final Specimen Negative for MRSA by DNA Probe Complete Assessment & Plan SHORTNESS OF BREATH Likely multifactorial from acute bronchitis and acute on chronic systolic CHF Has fever 37.7, no leukocytosis, no tachycardia or hypotension CXR- congestive failure, no infiltrate; + elevated BNP >12,000 Procalcitonin level normal will D/C levaquin Repeat CXR in am influenza marker negative Continue Neb treatments CHEST PAIN Rule out ACS- risk factors ESRD, DM, HTN, HL EKG did not shown any significant ST change Elevated troponin that can be related to ESRD Prior cath May 2012 showed non obstructive CAD cardiology consulted recommended no interventional therapy Stable from cardiac standpoint CHRONIC SYSTOLIC CHF/ PULMONARY HTN Prior echo 07/01/16- mild concentric LVH. Mildly reduced LV systolic function with abnormal septal wall motion consistent with RV pressure/volume overload and borderline global hypokinesis, EF 40-45%. Mild MR. Severe TR. Mild biatrial enlargement. Dilated RV chamber with reduced RV systolic function by TAPSE. Severe pulmonary hypertension is present. Appears volume overloaded with CXR showing congestive findings, BNP elevated Repeat Echo today Conclusions -- * Compared to previous study of 07/03/16: LV systolic function slightly improved. * Normal LV chamber size with moderate concentric LVH. * Mildly reduced LV systolic function, EF 45-50%. * Flattened septum is consistent with RV pressure/volume overload. * Dilated RV chamber with reduced RV systolic function by TAPSE. * Grade II diastolic dysfunction. * Mild mitral regurgitation. * Severe tricupid regurgitation. * Mild left atrial enlargement. * Pulmonary hypertension is present. * PASP of 74 mmHg assuming RA pressure of 8 mmHg (stable). ESRD ON HD Dialysis Sunday Nephrology and she is getting HD today DM TYPE 2 Continue Lantus Insulin sliding scale coverage Monitor BSG AC HS PAROXYSMAL ATRIAL FIBRILLATION Not on Coumadin due to history of hemorrhagic pericardial effusion/ tamponade Continue amiodarone with current dose as per cardio SYMPTOMATIC BRADYCARDIA S/p pacemaker stable HISTORY OF DVT/ PE s/p IVC filter Not on anticoagulation SLEEP APNEA/ OBESITY HYPOVENTILATION Continue bipap HS Continue nocturnal O2 HYPERTENSION BP is stable HISTORY OF TIA Continue aspirin, statin DEPRESSION Continue Zoloft GERD Continue PPI and Zantac DVT PROPHYLAXIS SCD's due to history of hemorrhagic pericardial effusion Current Inpatient Medications: Current Inpatient Medications Medications (Trade) Dose Ordered Sig/Tyesha Route Start Time Stop Time Status Last Admin Dose Admin Miscellaneous (Iv Fluids Completed) 1 ea PRN PRN N/A 11/08/16 19:45 11/08/17 19:44 Acetaminophen (Tylenol Tab) 650 mg Q4H PRN PO 11/08/16 20:00 12/08/16 19:59 11/09/16 07:43 650 MG Ondansetron HCl (Zofran Inj) 4 mg Q6H PRN IV 11/08/16 20:00 12/08/16 19:59 11/08/16 22:19 4 MG Insulin Aspart (novoLOG ASPART) SLIDING SCALE If C... ACHS SC 11/08/16 21:00 12/08/16 20:59 11/09/16 11:43 6 UNITS Glucose (Glucose 40% Gel) 15-30 GRAMS 15 GRAMS... UD PRN PO 11/08/16 20:15 12/08/16 20:14 Glucose (Glucose Chew Tab) 4-8 Tablets 4 Tabl... UD PRN PO 11/08/16 20:15 12/08/16 20:14 Dextrose (Dextrose 50% 50ML Syringe) 25-50ML OF 50% DW IV FOR... UD PRN IV 11/08/16 20:15 12/08/16 20:14 Glucagon (Glucagon Inj) 1 mg UD PRN SQ 11/08/16 20:15 12/08/16 20:14 Allopurinol (Zyloprim Tab) 100 mg QAM PO 11/09/16 09:00 12/09/16 08:59 11/09/16 07:46 100 MG Amiodarone HCl (Cordarone Tab) 400 mg DAILY PO 11/09/16 09:00 12/09/16 08:59 11/09/16 07:44 400 MG Aspirin (Ecotrin Tab) 81 mg QAM PO 11/09/16 09:00 12/09/16 08:59 11/09/16 07:45 81 MG Atorvastatin Calcium (Lipitor Tab) 40 mg DAILY PO 11/09/16 09:00 12/09/16 08:59 11/09/16 07:46 40 MG Clonazepam (Klonopin Tab) 0.25 mg HS PRN PO 11/08/16 20:15 12/08/16 20:14 11/08/16 21:53 0.25 MG Gabapentin (Neurontin Cap) 100 mg BID PO 11/08/16 21:00 12/08/16 20:59 11/09/16 07:44 100 MG Acetaminophen/ Hydrocodone Bitart ([place] 5/325 Tab) 1 tab Q6 PRN PO 11/08/16 20:15 11/22/16 20:14 11/09/16 03:12 1 TAB Insulin Glargine (Lantus Solostar Pen) 10 unit HS SQ 11/08/16 21:00 12/08/16 20:59 11/08/16 21:54 10 UNIT Lorazepam (Ativan Tab) 0.5 mg TID PRN PO 11/08/16 20:15 12/08/16 20:14 11/09/16 00:41 0.5 MG Multivitamins (Multivitamin Tab) 1 tab QAM PO 11/09/16 09:00 12/09/16 08:59 11/09/16 07:46 1 TAB Nitroglycerin (Nitrostat Tab) 0.4 mg UD PRN UT 11/08/16 20:15 12/08/16 20:14 Ranitidine HCl (zANTac TAB) 150 mg BID PRN PO 11/08/16 20:15 12/08/16 20:14 Sertraline HCl (Zoloft Tab) 100 mg BID PO 11/08/16 21:00 12/08/16 20:59 11/09/16 07:44 100 MG Calcium Acetate (Phoslo Cap) 667 mg TIDM PO 11/09/16 07:30 12/09/16 07:29 11/09/16 11:41 667 MG Pantoprazole Sodium (Protonix Tab) 40 mg QAM PO 11/09/16 09:00 12/09/16 08:59 11/09/16 07:45 40 MG Ipratropium [place] (Atrovent 0.02% 0.5MG/2.5ML Neb) 0.5 mg Q6R INH 11/08/16 21:00 12/08/16 20:59 11/09/16 19:04 0.5 MG Levalbuterol (Xopenex 1.25MG/ 0.5ML Neb) 1.25 mg Q6R INH 11/08/16 21:00 12/08/16 20:59 11/09/16 19:04 1.25 MG Ipratropium [place] (Atrovent 0.02% 0.5MG/2.5ML Neb) 0.5 mg Q2H PRN INH 11/08/16 21:00 12/08/16 20:59 Levalbuterol (Xopenex 0.63 Mg/ 3 Ml Neb) 0.63 mg Q2H PRN INH 11/08/16 21:00 12/08/16 20:59 Levofloxacin 1 ea 1 ea UD PRN N/A 11/08/16 21:56 12/08/16 21:55 Levofloxacin 250 mg/Prmx 50 ml @ 50 mls/hr Q2D@1800 IV 11/10/16 18:00 11/15/16 17:59 Promethazine HCl/ Sodium Chloride (Phenergan Inj/ Nss 50ml) 50.5 ml @ 204 mls/hr Q6H PRN IV 11/08/16 23:00 12/08/16 22:59 Ropinirole HCl (Requip Tab) 0.25 mg HS PO 11/09/16 21:00 12/09/16 20:59 11/09/16 02:06 0.25 MG
[2016-11-09] MEDS: CLONAZEPAM 0.5 MG TAB PO PRN (20:23)
[2016-11-09] MEDS: INSULIN GLARGINE SOLOSTAR 100 UNITS/ML 3 ML PEN SQ SCH (20:28)
[2016-11-10] VITALS (10 sets, daily range): BP systolic 94–144; BP diastolic 37–72; PULSE 69–87; TEMP 36.5–37; O2SAT 91–99
[2016-11-10] MEDS: LEVALBUTEROL 1.25MG/0.5ML NEB INH SCH ×4 (01:52→20:50)
[2016-11-10] MEDS: IPRATROPIUM BROMIDE NEB SOLN 0.02% 2.5 ML VIAL INH SCH ×4 (01:52→20:50)
[2016-11-10 06:54] LABS: HEMATOCRIT 31.8 % (37-47); MEAN CELL VOLUME 99.1 fL (80-100); MEAN CORPUSCULAR HEMOGLOBIN 31.5 pg (25-34); MEAN CORPUSCULAR HGB CONC 31.8 g/dl (32-36); MEAN PLATELET VOLUME 11.1 fL (7.4-10.4); PLATELET COUNT 101 K/uL (130-400); RED BLOOD COUNT 3.21 M/uL (4.2-5.4)
--- NOTE | 2016-11-10 07:33 | Nephrology Progress Note ---
Nephrology Progress Note Date of Service: Nov 10, 2016. Subjective 71 yo female with chest pain which has resolved, cough which is improving. pt underwent dialysis yesterday and felt tired after dialysis. pt is on home oxygen at night. pt interested in going home today and willing to use oxygen 24/ if necessary. Objective Date Time Temp Pulse Resp B/P Pulse Ox O2 Delivery O2 Flow Rate FiO2 11/10/16 04:00 Nasal Cannula 2.0 11/10/16 04:00 37.0 73 18 125/64 92 Nasal Cannula 2.0 11/10/16 01:52 74 18 95 Nasal Cannula 2.0 11/09/16 23:59 Nasal Cannula 2.0 11/09/16 23:26 36.8 71 18 95/54 93 Nasal Cannula 2.0 11/09/16 20:00 Nasal Cannula 2.0 11/09/16 19:05 70 18 96 Nasal Cannula 2.0 11/09/16 18:29 36.8 70 20 107/54 91 Nasal Cannula 2.0 11/09/16 17:50 36.4 65 114/58 11/09/16 17:45 67 106/49 11/09/16 17:30 69 110/44 11/09/16 17:15 70 116/50 11/09/16 17:00 76 112/49 11/09/16 16:45 70 118/59 11/09/16 16:30 63 123/55 11/09/16 16:15 70 131/64 11/09/16 16:00 98 Nasal Cannula 2.0 11/09/16 16:00 66 120/59 11/09/16 15:45 70 111/60 11/09/16 15:30 69 126/52 11/09/16 15:15 73 119/51 11/09/16 15:00 68 121/49 11/09/16 14:45 36.2 68 124/65 11/09/16 14:45 70 131/56 11/09/16 14:11 70 18 97 Nasal Cannula 2.0 11/09/16 12:00 98 Nasal Cannula 2.0 11/09/16 11:31 37.0 71 20 150/77 97 Nasal Cannula 2.0 11/09/16 08:06 36.8 74 20 133/67 91 Room Air 11/09/16 08:00 98 Nasal Cannula 2.0 Physical Exam: General-[id number] Eyes-no scleral icterus ENT-mmm Neck-supple Lungs-cta Heart-rrr Abdomen-bs+ s/nt/nd Extremities-no edema Neuro-nonfocal Current Inpatient Medications Medications (Trade) Dose Ordered Sig/Tyesha Route Start Time Stop Time Status Last Admin Dose Admin Miscellaneous (Iv Fluids Completed) 1 ea PRN PRN N/A 11/08/16 19:45 11/08/17 19:44 Acetaminophen (Tylenol Tab) 650 mg Q4H PRN PO 11/08/16 20:00 12/08/16 19:59 11/09/16 07:43 650 MG Ondansetron HCl (Zofran Inj) 4 mg Q6H PRN IV 11/08/16 20:00 12/08/16 19:59 11/08/16 22:19 4 MG Insulin Aspart (novoLOG ASPART) SLIDING SCALE If C... ACHS SC 11/08/16 21:00 12/08/16 20:59 11/09/16 20:27 3 UNITS Glucose (Glucose 40% Gel) 15-30 GRAMS 15 GRAMS... UD PRN PO 11/08/16 20:15 12/08/16 20:14 Glucose (Glucose Chew Tab) 4-8 Tablets 4 Tabl... UD PRN PO 11/08/16 20:15 12/08/16 20:14 Dextrose (Dextrose 50% 50ML Syringe) 25-50ML OF 50% DW IV FOR... UD PRN IV 11/08/16 20:15 12/08/16 20:14 Glucagon (Glucagon Inj) 1 mg UD PRN SQ 11/08/16 20:15 12/08/16 20:14 Allopurinol (Zyloprim Tab) 100 mg QAM PO 11/09/16 09:00 12/09/16 08:59 11/09/16 07:46 100 MG Amiodarone HCl (Cordarone Tab) 400 mg DAILY PO 11/09/16 09:00 12/09/16 08:59 11/09/16 07:44 400 MG Aspirin (Ecotrin Tab) 81 mg QAM PO 11/09/16 09:00 12/09/16 08:59 11/09/16 07:45 81 MG Atorvastatin Calcium (Lipitor Tab) 40 mg DAILY PO 11/09/16 09:00 12/09/16 08:59 11/09/16 07:46 40 MG Clonazepam (Klonopin Tab) 0.25 mg HS PRN PO 11/08/16 20:15 12/08/16 20:14 11/09/16 20:23 0.25 MG Gabapentin (Neurontin Cap) 100 mg BID PO 11/08/16 21:00 12/08/16 20:59 11/09/16 20:23 100 MG Acetaminophen/ Hydrocodone Bitart ([place] 5/325 Tab) 1 tab Q6 PRN PO 11/08/16 20:15 11/22/16 20:14 11/09/16 23:31 1 TAB Insulin Glargine (Lantus Solostar Pen) 10 unit HS SQ 11/08/16 21:00 12/08/16 20:59 11/09/16 20:28 10 UNIT Lorazepam (Ativan Tab) 0.5 mg TID PRN PO 11/08/16 20:15 12/08/16 20:14 11/09/16 23:28 0.5 MG Multivitamins (Multivitamin Tab) 1 tab QAM PO 11/09/16 09:00 12/09/16 08:59 11/09/16 07:46 1 TAB Nitroglycerin (Nitrostat Tab) 0.4 mg UD PRN UT 11/08/16 20:15 12/08/16 20:14 Ranitidine HCl (zANTac TAB) 150 mg BID PRN PO 11/08/16 20:15 12/08/16 20:14 Sertraline HCl (Zoloft Tab) 100 mg BID PO 11/08/16 21:00 12/08/16 20:59 11/09/16 20:23 100 MG Calcium Acetate (Phoslo Cap) 667 mg TIDM PO 11/09/16 07:30 12/09/16 07:29 11/09/16 11:41 667 MG Pantoprazole Sodium (Protonix Tab) 40 mg QAM PO 11/09/16 09:00 12/09/16 08:59 11/09/16 07:45 40 MG Ipratropium [place] (Atrovent 0.02% 0.5MG/2.5ML Neb) 0.5 mg Q6R INH 11/08/16 21:00 12/08/16 20:59 11/10/16 01:52 0.5 MG Levalbuterol (Xopenex 1.25MG/ 0.5ML Neb) 1.25 mg Q6R INH 11/08/16 21:00 12/08/16 20:59 11/10/16 01:52 1.25 MG Ipratropium [place] (Atrovent 0.02% 0.5MG/2.5ML Neb) 0.5 mg Q2H PRN INH 11/08/16 21:00 12/08/16 20:59 Levalbuterol 0.63 mg 0.63 mg Q2H PRN INH 11/08/16 21:00 12/08/16 20:59 Promethazine HCl/ Sodium Chloride (Phenergan Inj/ Nss 50ml) 50.5 ml @ 204 mls/hr Q6H PRN IV 11/08/16 23:00 12/08/16 22:59 Ropinirole HCl (Requip Tab) 0.25 mg HS PO 11/09/16 21:00 12/09/16 20:59 11/09/16 02:06 0.25 MG Last 24 Hours Test 11/09/16 08:27 11/09/16 11:25 11/09/16 12:30 11/09/16 18:24 White Blood Count 8.24 K/uL Red Blood Count 3.12 M/uL Hemoglobin 10.0 g/dL Hematocrit 30.8 % Mean Corpuscular Volume 98.7 fL Mean Corpuscular Hemoglobin 32.1 pg Mean Corpuscular Hemoglobin Concent 32.5 g/dl RDW Standard Deviation 57.5 fL RDW Coefficient of Variation 15.9 % Platelet Count 100 K/uL Mean Platelet Volume 11.2 fL Sodium Level 136 mmol/L Potassium Level 5.1 mmol/L Chloride Level 96 mmol/L Carbon Dioxide Level 27 mmol/L Anion Gap 13.0 mmol/L Blood Urea Nitrogen 57 mg/dl Creatinine 8.40 mg/dl Est Creatinine Clear Calc Drug Dose 6.0 ml/min Estimated GFR () 4.9 Estimated GFR (Non- 4.3 BUN/Creatinine Ratio 6.7 Random Glucose 213 mg/dl Calcium Level 9.1 mg/dl Phosphorus Level 4.5 mg/dl Magnesium Level 2.5 mg/dl Bedside Glucose 241 mg/dl 144 mg/dl Hepatitis B Surface Antigen NEG Test 11/09/16 20:21 11/09/16 23:14 11/10/16 06:12 11/10/16 06:42 Bedside Glucose 221 mg/dl 238 mg/dl 292 mg/dl White Blood Count 7.20 K/uL Red Blood Count 3.21 M/uL Hemoglobin 10.1 g/dL Hematocrit 31.8 % Mean Corpuscular Volume 99.1 fL Mean Corpuscular Hemoglobin 31.5 pg Mean Corpuscular Hemoglobin Concent 31.8 g/dl RDW Standard Deviation 58.0 fL RDW Coefficient of Variation 15.9 % Platelet Count 101 K/uL Mean Platelet Volume 11.1 fL Date/Time Source Procedure Growth Status 11/09/16 20:45 Urine , Clean Catch Urine Culture Pending Received Assessment & Plan ESRD-pt usually dialyzes t-h-s. had dialysis yesterday. pt prefers to not have dialysis today. based on clinical exam, volume status is acceptable although chest xray and bnp are suggestive of continued fluid overload contributing to her sob. recommended dialysis but pt prefers to not have it. plan on dialysis tomorrow if inpatient. ok from renal perspective to go home once medically cleared.
--- NOTE | 2016-11-10 07:46 | DIAGNOSTIC IMAGING REPORT ---
CHEST ONE VIEW PORTABLE HISTORY: Short of breath. f/u congestion COMPARISON: Chest 11/08/2016. FINDINGS: The heart remains enlarged. No pleural effusions. No pneumothorax. Right-sided dual-chamber pacemaker. Mild pulmonary basilar congestion has improved. IMPRESSION: 1. Mild pulmonary vascular congestion has improved. 2. Stable cardiomegaly. Electronically signed by: Rik Vora M.D. 11/10/2016 7:44 AM Dictated Date/Time: 11/10/2016 7:43 AM
[2016-11-10 07:50] LABS: BUN/CREATININE RATIO 6.2 (10-20); CALCIUM 8.8 mg/dl (8.5-10.1); CREATININE 6.2 mg/dl (0.60-1.20)
[2016-11-10] MEDS: CALCIUM ACETATE 667MG GELCAP PO SCH ×3 (07:59→17:43)
[2016-11-10] MEDS: INSULIN ASPART 100 UNITS/ML 3 ML PEN SC SCH ×4 (07:59→21:09)
[2016-11-10] MEDS: AMIODARONE 200 MG TAB PO SCH (07:59)
[2016-11-10] MEDS: SERTRALINE HCL 100 MG TAB PO SCH ×2 (08:00→22:11)
[2016-11-10] MEDS: PANTOprazole SOD 40 MG TAB PO SCH (08:00)
[2016-11-10] MEDS: ATORVASTATIN 40 MG TAB PO SCH (08:00)
[2016-11-10] MEDS: ASPIRIN 81 MG ECTAB PO SCH (08:00)
[2016-11-10] MEDS: ALLOPURINOL 100 MG TAB PO SCH (08:00)
[2016-11-10] MEDS: MULTIVITAMIN TAB PO SCH (08:01)
[2016-11-10] MEDS: GABAPENTIN 100 MG CAP PO SCH ×2 (08:01→22:12)
--- NOTE | 2016-11-10 10:28 | Progress Note ---
Medicine Progress Note Date & Time of Visit: Nov 10, 2016 at 10:16. Subjective Pt was seen and examined comfortable in bed watching TV Pt said that she feels much better today she said that feels like she is back to her baseline she denies any chest pain, palpitation still having SOB on exertion Objective Last 8 Hrs Date Time Temp Pulse Resp B/P Pulse Ox O2 Delivery O2 Flow Rate FiO2 11/10/16 08:00 Nasal Cannula 2.0 11/10/16 07:57 37.0 78 20 128/64 94 Nasal Cannula 2.0 11/10/16 07:40 72 18 94 Nasal Cannula 2.0 11/10/16 04:00 Nasal Cannula 2.0 11/10/16 04:00 37.0 73 18 125/64 92 Nasal Cannula 2.0 Physical Exam: General- No acute distress Head- atraumatic Eyes- PERRL, EOMI ENT- oropharynx clear Neck- supple, no JVD Lungs- No wheezing, no crackles Heart- regular rhythm; no murmur Abdomen- normal bowel sounds, soft, nontender Extremities-no calf tenderness Neuro- alert, oriented x 3; PERRL, EOMI; Skin- warm & dry Laboratory Results: Last 24 Hours Test 11/09/16 11:25 11/09/16 12:30 11/09/16 18:24 11/09/16 20:21 Bedside Glucose 241 mg/dl 144 mg/dl 221 mg/dl Hepatitis B Surface Antigen NEG Test 11/09/16 23:14 11/10/16 06:12 11/10/16 06:42 Bedside Glucose 238 mg/dl 292 mg/dl White Blood Count 7.20 K/uL Red Blood Count 3.21 M/uL Hemoglobin 10.1 g/dL Hematocrit 31.8 % Mean Corpuscular Volume 99.1 fL Mean Corpuscular Hemoglobin 31.5 pg Mean Corpuscular Hemoglobin Concent 31.8 g/dl RDW Standard Deviation 58.0 fL RDW Coefficient of Variation 15.9 % Platelet Count 101 K/uL Mean Platelet Volume 11.1 fL Sodium Level 136 mmol/L Potassium Level 5.0 mmol/L Chloride Level 95 mmol/L Carbon Dioxide Level 28 mmol/L Anion Gap 13.0 mmol/L Blood Urea Nitrogen 38 mg/dl Creatinine 6.20 mg/dl Est Creatinine Clear Calc Drug Dose 8.0 ml/min Estimated GFR () 7.1 Estimated GFR (Non- 6.2 BUN/Creatinine Ratio 6.2 Random Glucose 267 mg/dl Calcium Level 8.8 mg/dl Date/Time Source Procedure Growth Status 11/09/16 20:45 Urine , Clean Catch Urine Culture Pending Received Assessment & Plan SHORTNESS OF BREATH Likely multifactorial from acute bronchitis and acute on chronic systolic CHF Has fever 37.7, no leukocytosis, no tachycardia or hypotension CXR- congestive failure, no infiltrate; + elevated BNP >12,000 Procalcitonin level normal Levaquin was D/C after procalcitonin result negative influenza marker negative Continue Neb treatments Repeat CXR showed Mild pulmonary vascular congestion has improved. continue taper dose of prednisone CHEST PAIN Rule out ACS- risk factors ESRD, DM, HTN, HL EKG did not shown any significant ST change Elevated troponin that can be related to ESRD Prior cath May 2012 showed non obstructive CAD cardiology consulted recommended no interventional therapy Stable from cardiac standpoint CHRONIC SYSTOLIC CHF/ PULMONARY HTN Prior echo 07/01/16- mild concentric LVH. Mildly reduced LV systolic function with abnormal septal wall motion consistent with RV pressure/volume overload and borderline global hypokinesis, EF 40-45%. Mild MR. Severe TR. Mild biatrial enlargement. Dilated RV chamber with reduced RV systolic function by TAPSE. Severe pulmonary hypertension is present. Appears volume overloaded with CXR showing congestive findings, BNP elevated Repeat Echo today Conclusions -- * Compared to previous study of 07/03/16: LV systolic function slightly improved. * Normal LV chamber size with moderate concentric LVH. * Mildly reduced LV systolic function, EF 45-50%. * Flattened septum is consistent with RV pressure/volume overload. * Dilated RV chamber with reduced RV systolic function by TAPSE. * Grade II diastolic dysfunction. * Mild mitral regurgitation. * Severe tricupid regurgitation. * Mild left atrial enlargement. * Pulmonary hypertension is present. * PASP of 74 mmHg assuming RA pressure of 8 mmHg (stable). ESRD ON HD Dialysis Sunday She was HD yesterday next HD will be tomorrow Stable from renal standpoint DM TYPE 2 Continue Lantus Insulin sliding scale coverage Monitor BSG AC HS PAROXYSMAL ATRIAL FIBRILLATION Not on Coumadin due to history of hemorrhagic pericardial effusion/ tamponade Continue amiodarone with current dose as per cardio SYMPTOMATIC BRADYCARDIA S/p pacemaker stable HISTORY OF DVT/ PE s/p IVC filter Not on anticoagulation SLEEP APNEA/ OBESITY HYPOVENTILATION Continue bipap HS Continue nocturnal O2 HYPERTENSION BP is stable HISTORY OF TIA Continue aspirin, statin DEPRESSION Continue Zoloft GERD Continue PPI and Zantac DVT PROPHYLAXIS SCD's due to history of hemorrhagic pericardial effusion Disposition Will discharge today Current Inpatient Medications: Current Inpatient Medications Medications (Trade) Dose Ordered Sig/Tyesha Route Start Time Stop Time Status Last Admin Dose Admin Miscellaneous (Iv Fluids Completed) 1 ea PRN PRN N/A 11/08/16 19:45 11/08/17 19:44 Acetaminophen (Tylenol Tab) 650 mg Q4H PRN PO 11/08/16 20:00 12/08/16 19:59 11/09/16 07:43 650 MG Ondansetron HCl (Zofran Inj) 4 mg Q6H PRN IV 11/08/16 20:00 12/08/16 19:59 11/08/16 22:19 4 MG Insulin Aspart (novoLOG ASPART) SLIDING SCALE If C... ACHS SC 11/08/16 21:00 12/08/16 20:59 11/10/16 07:59 7 UNITS Glucose (Glucose 40% Gel) 15-30 GRAMS 15 GRAMS... UD PRN PO 11/08/16 20:15 12/08/16 20:14 Glucose (Glucose Chew Tab) 4-8 Tablets 4 Tabl... UD PRN PO 11/08/16 20:15 12/08/16 20:14 Dextrose (Dextrose 50% 50ML Syringe) 25-50ML OF 50% DW IV FOR... UD PRN IV 11/08/16 20:15 12/08/16 20:14 Glucagon (Glucagon Inj) 1 mg UD PRN SQ 11/08/16 20:15 12/08/16 20:14 Allopurinol (Zyloprim Tab) 100 mg QAM PO 11/09/16 09:00 12/09/16 08:59 11/10/16 08:00 100 MG Amiodarone HCl (Cordarone Tab) 400 mg DAILY PO 11/09/16 09:00 12/09/16 08:59 11/10/16 07:59 400 MG Aspirin (Ecotrin Tab) 81 mg QAM PO 11/09/16 09:00 12/09/16 08:59 11/10/16 08:00 81 MG Atorvastatin Calcium (Lipitor Tab) 40 mg DAILY PO 11/09/16 09:00 12/09/16 08:59 11/10/16 08:00 40 MG Clonazepam (Klonopin Tab) 0.25 mg HS PRN PO 11/08/16 20:15 12/08/16 20:14 11/09/16 20:23 0.25 MG Gabapentin (Neurontin Cap) 100 mg BID PO 11/08/16 21:00 12/08/16 20:59 11/10/16 08:01 100 MG Acetaminophen/ Hydrocodone Bitart ([place] 5/325 Tab) 1 tab Q6 PRN PO 11/08/16 20:15 11/22/16 20:14 11/09/16 23:31 1 TAB Insulin Glargine (Lantus Solostar Pen) 10 unit HS SQ 11/08/16 21:00 12/08/16 20:59 11/09/16 20:28 10 UNIT Lorazepam (Ativan Tab) 0.5 mg TID PRN PO 11/08/16 20:15 12/08/16 20:14 11/09/16 23:28 0.5 MG Multivitamins (Multivitamin Tab) 1 tab QAM PO 11/09/16 09:00 12/09/16 08:59 11/10/16 08:01 1 TAB Nitroglycerin (Nitrostat Tab) 0.4 mg UD PRN UT 11/08/16 20:15 12/08/16 20:14 Ranitidine HCl (zANTac TAB) 150 mg BID PRN PO 11/08/16 20:15 12/08/16 20:14 Sertraline HCl (Zoloft Tab) 100 mg BID PO 11/08/16 21:00 12/08/16 20:59 11/10/16 08:00 100 MG Calcium Acetate (Phoslo Cap) 667 mg TIDM PO 11/09/16 07:30 12/09/16 07:29 11/10/16 07:59 667 MG Pantoprazole Sodium (Protonix Tab) 40 mg QAM PO 11/09/16 09:00 12/09/16 08:59 11/10/16 08:00 40 MG Ipratropium [place] (Atrovent 0.02% 0.5MG/2.5ML Neb) 0.5 mg Q6R INH 11/08/16 21:00 12/08/16 20:59 11/10/16 07:40 0.5 MG Levalbuterol (Xopenex 1.25MG/ 0.5ML Neb) 1.25 mg Q6R INH 11/08/16 21:00 12/08/16 20:59 11/10/16 07:40 1.25 MG Ipratropium [place] (Atrovent 0.02% 0.5MG/2.5ML Neb) 0.5 mg Q2H PRN INH 11/08/16 21:00 12/08/16 20:59 Levalbuterol 0.63 mg 0.63 mg Q2H PRN INH 11/08/16 21:00 12/08/16 20:59 Promethazine HCl/ Sodium Chloride (Phenergan Inj/ Nss 50ml) 50.5 ml @ 204 mls/hr Q6H PRN IV 11/08/16 23:00 12/08/16 22:59 Ropinirole HCl (Requip Tab) 0.25 mg HS PO 11/09/16 21:00 12/09/16 20:59 11/09/16 02:06 0.25 MG Prednisone (PredniSONE TAB) 40 mg DAILY PO 11/10/16 09:00 12/10/16 08:59 11/10/16 09:54 40 MG
--- NOTE | 2016-11-10 10:28 | Cardiology Follow-Up ---
Subjective Subjective Date of Service: Nov 10, 2016. Pt evaluation today including: conversation w/ patient, physical exam, chart review, lab review, review of studies, review of inpatient medication list Additional Details: Pt seen and examined, states that she feels well. PND improving. Still with some pleuritic chest discomfort. Denies sob, palpitations, lightheadedness or dizziness. Tele reviewed: v-paced Problem List Medical Problems: (1) Altered mental status Status: Acute (2) Bronchitis Status: Acute (3) CHF (congestive heart failure) Status: Acute (4) Exertional chest pain Status: Acute (5) Falls Status: Acute (6) Heat exhaustion Status: Acute (7) Nausea Status: Acute (8) Orthostatic hypotension Status: Acute (9) Shortness of breath Status: Acute (10) Upper respiratory infection Status: Acute Review of Systems Respiratory: + cough, + sputum, No dyspnea at rest, No dyspnea on exertion, No hemoptysis, No problem reported, No see HPI, No shortness of breath, No wheezing Cardiac: No PND, No chest pain, No claudication, No edema, No orthopnea, No palpitations, No problem reported, No see HPI Objective Vital Signs Last Vital Signs Documentation Date Time Temp Pulse Resp B/P Pulse Ox O2 Delivery O2 Flow Rate FiO2 11/10/16 08:00 Nasal Cannula 2.0 11/10/16 07:57 37.0 78 20 128/64 94 Physical Exam: General Appearance: WD/WN, no apparent distress Eyes: bilateral eyes EOMI, bilateral eyes PERRL, bilateral eyes normal inspection ENT: normal ENT inspection, hearing grossly normal, pharynx normal Neck: supple, no adenopathy, thyroid normal, no JVD Respiratory/Chest: normal breath sounds, no respiratory distress, no accessory muscle use, + pertinent finding (tenderness) Cardiovascular: regular rate, rhythm, no edema, no JVD, + gallop/S4 Abdomen: normal bowel sounds, non tender, soft, no organomegaly, no pulsatile mass Extremities: normal inspection, no pedal edema, no calf tenderness Neurologic/Psychiatric: reference archivist II-XII nml as tested, no motor/sensory deficits, alert, normal mood/affect, oriented x 3 Skin: normal color, warm/dry, no rash Lymphatic: no adenopathy Assessment and Plan 1. chest pain reproducible and pleuritic in nature no sign of ischemia no further cardiac testing 2. NICM stable cont outpatient meds 3. pulm htn stable ok to d/c to home from cardiac standpoint.
[2016-11-10] MEDS: ACETAMINOPHEN 325 MG TAB PO PRN (12:53)
[2016-11-10] MEDS ORDERED: LEVOFLOXACIN 250MG / D5W IV SCH (18:00)
[2016-11-10] MEDS ORDERED: GUAIFENESIN 200 MG TAB PO ONE (20:39)
[2016-11-10] MEDS: INSULIN GLARGINE SOLOSTAR 100 UNITS/ML 3 ML PEN SQ SCH (21:09)
[2016-11-10] MEDS: ROPINIROLE HCL 0.25 MG TAB PO SCH (22:12)
[2016-11-10] MEDS: GUAIFENESIN 200 MG TAB PO SCH (22:13)
[2016-11-11] VITALS (19 sets, daily range): BP systolic 113–154; BP diastolic 65–82; PULSE 68–79; TEMP 36.4–36.9; O2SAT 93–97
[2016-11-11] MEDS: IPRATROPIUM BROMIDE NEB SOLN 0.02% 2.5 ML VIAL INH SCH ×3 (02:19→14:40)
[2016-11-11] MEDS: LEVALBUTEROL 1.25MG/0.5ML NEB INH SCH ×3 (02:19→14:40)
[2016-11-11] MEDS: HYDROCODONE/ACETAMOPHEN 5/325MG TAB PO PRN (03:53)
[2016-11-11] MEDS: GUAIFENESIN 200 MG TAB PO SCH ×2 (05:16→13:51)
[2016-11-11] MEDS: INSULIN ASPART 100 UNITS/ML 3 ML PEN SC SCH ×3 (06:30→17:29)
[2016-11-11 10:47] LABS: HEMATOCRIT 31.1 % (37-47); MEAN CELL VOLUME 96.9 fL (80-100); MEAN CORPUSCULAR HEMOGLOBIN 31.8 pg (25-34); MEAN CORPUSCULAR HGB CONC 32.8 g/dl (32-36); MEAN PLATELET VOLUME 10.9 fL (7.4-10.4); PLATELET COUNT 133 K/uL (130-400); RED BLOOD COUNT 3.21 M/uL (4.2-5.4); WHITE BLOOD COUNT 8.67 K/uL (4.8-10.8)
[2016-11-11] MEDS: SERTRALINE HCL 100 MG TAB PO SCH (11:01)
[2016-11-11] MEDS: CALCIUM ACETATE 667MG GELCAP PO SCH ×3 (11:01→17:30)
[2016-11-11] MEDS: PANTOprazole SOD 40 MG TAB PO SCH (11:01)
[2016-11-11] MEDS: ATORVASTATIN 40 MG TAB PO SCH (11:01)
[2016-11-11] MEDS: AMIODARONE 200 MG TAB PO SCH (11:01)
[2016-11-11] MEDS: GABAPENTIN 100 MG CAP PO SCH (11:01)
[2016-11-11] MEDS: MULTIVITAMIN TAB PO SCH (11:01)
[2016-11-11] MEDS: ALLOPURINOL 100 MG TAB PO SCH (11:01)
[2016-11-11] MEDS: ASPIRIN 81 MG ECTAB PO SCH (11:02)
[2016-11-11 11:25] LABS: BUN/CREATININE RATIO 6.2 (10-20); CALCIUM 8.5 mg/dl (8.5-10.1); CREATININE 4.5 mg/dl (0.60-1.20); MAGNESIUM 2.4 mg/dl (1.8-2.4); PHOSPHORUS 2.8 mg/dl (2.5-4.9); POTASSIUM 3.7 mmol/L (3.5-5.1)
--- NOTE | 2016-11-11 13:43 | Nephrology Progress Note ---
Nephrology Progress Note Date of Service: Nov 11, 2016. Subjective still w/ thick cough. uneventful hd this am. eating well; not dyspneic. no n/ v. presyncopal sx at PT yesterday Objective Date Time Temp Pulse Resp B/P Pulse Ox O2 Delivery O2 Flow Rate FiO2 11/11/16 11:15 Nasal Cannula 2.0 11/11/16 09:45 36.9 71 153/75 11/11/16 09:00 70 143/74 11/11/16 08:45 70 154/74 11/11/16 08:30 70 132/70 11/11/16 08:15 72 134/67 11/11/16 08:00 72 127/67 11/11/16 07:45 70 130/65 11/11/16 07:30 70 126/68 11/11/16 07:15 70 124/71 11/11/16 07:00 70 120/66 11/11/16 06:45 72 139/77 11/11/16 06:30 70 141/75 11/11/16 06:00 70 145/82 11/11/16 05:45 36.4 70 147/82 11/11/16 02:20 79 18 96 Nasal Cannula 2.0 11/11/16 00:57 Nasal Cannula 2.0 11/10/16 22:36 36.5 70 18 131/69 91 Nasal Cannula 2.0 11/10/16 20:50 71 18 93 Nasal Cannula 2.0 11/10/16 20:12 36.6 70 18 94/37 99 Nasal Cannula 11/10/16 20:00 Nasal Cannula 2.0 11/10/16 16:13 Nasal Cannula 2.0 11/10/16 16:03 36.8 69 20 144/72 94 Nasal Cannula 1.0 11/10/16 15:06 87 18 92 Nasal Cannula 2.0 Physical Exam: General-A&0 x 3 sitting on side of bed on 02nc Eyes-eomi ENT-dry mm, thick non productive cough in exam Neck-supple Lungs-diffuse crackles 1/[address] up posterior price; diminished air mvt no wheeze Heart-RRR Abdomen-soft NT +BS Extremities-no c/c/e Neuro-carreon, fluent speech Current Inpatient Medications Medications (Trade) Dose Ordered Sig/Tyesha Route Start Time Stop Time Status Last Admin Dose Admin Miscellaneous (Iv Fluids Completed) 1 ea PRN PRN N/A 11/08/16 19:45 11/08/17 19:44 Acetaminophen (Tylenol Tab) 650 mg Q4H PRN PO 11/08/16 20:00 12/08/16 19:59 11/10/16 12:53 650 MG Ondansetron HCl (Zofran Inj) 4 mg Q6H PRN IV 11/08/16 20:00 12/08/16 19:59 11/08/16 22:19 4 MG Insulin Aspart (novoLOG ASPART) SLIDING SCALE If C... ACHS SC 11/08/16 21:00 12/08/16 20:59 11/10/16 21:09 6 UNITS Glucose (Glucose 40% Gel) 15-30 GRAMS 15 GRAMS... UD PRN PO 11/08/16 20:15 12/08/16 20:14 Glucose (Glucose Chew Tab) 4-8 Tablets 4 Tabl... UD PRN PO 11/08/16 20:15 12/08/16 20:14 Dextrose (Dextrose 50% 50ML Syringe) 25-50ML OF 50% DW IV FOR... UD PRN IV 11/08/16 20:15 12/08/16 20:14 Glucagon (Glucagon Inj) 1 mg UD PRN SQ 11/08/16 20:15 12/08/16 20:14 Allopurinol (Zyloprim Tab) 100 mg QAM PO 11/09/16 09:00 12/09/16 08:59 11/11/16 11:01 100 MG Amiodarone HCl (Cordarone Tab) 400 mg DAILY PO 11/09/16 09:00 12/09/16 08:59 11/11/16 11:01 400 MG Aspirin (Ecotrin Tab) 81 mg QAM PO 11/09/16 09:00 12/09/16 08:59 11/11/16 11:02 81 MG Atorvastatin Calcium (Lipitor Tab) 40 mg DAILY PO 11/09/16 09:00 12/09/16 08:59 11/11/16 11:01 40 MG Clonazepam (Klonopin Tab) 0.25 mg HS PRN PO 11/08/16 20:15 12/08/16 20:14 11/09/16 20:23 0.25 MG Gabapentin (Neurontin Cap) 100 mg BID PO 11/08/16 21:00 12/08/16 20:59 11/11/16 11:01 100 MG Acetaminophen/ Hydrocodone Bitart ([place] 5/325 Tab) 1 tab Q6 PRN PO 11/08/16 20:15 11/22/16 20:14 11/11/16 03:53 1 TAB Insulin Glargine (Lantus Solostar Pen) 10 unit HS SQ 11/08/16 21:00 12/08/16 20:59 11/10/16 21:09 10 UNIT Lorazepam (Ativan Tab) 0.5 mg TID PRN PO 11/08/16 20:15 12/08/16 20:14 11/09/16 23:28 0.5 MG Multivitamins (Multivitamin Tab) 1 tab QAM PO 11/09/16 09:00 12/09/16 08:59 11/11/16 11:01 1 TAB Nitroglycerin (Nitrostat Tab) 0.4 mg UD PRN UT 11/08/16 20:15 12/08/16 20:14 Ranitidine HCl (zANTac TAB) 150 mg BID PRN PO 11/08/16 20:15 12/08/16 20:14 Sertraline HCl (Zoloft Tab) 100 mg BID PO 11/08/16 21:00 12/08/16 20:59 11/11/16 11:01 100 MG Calcium Acetate (Phoslo Cap) 667 mg TIDM PO 11/09/16 07:30 12/09/16 07:29 11/11/16 11:01 667 MG Pantoprazole Sodium (Protonix Tab) 40 mg QAM PO 11/09/16 09:00 12/09/16 08:59 11/11/16 11:01 40 MG Ipratropium [place] (Atrovent 0.02% 0.5MG/2.5ML Neb) 0.5 mg Q6R INH 11/08/16 21:00 12/08/16 20:59 11/11/16 02:19 0.5 MG Levalbuterol (Xopenex 1.25MG/ 0.5ML Neb) 1.25 mg Q6R INH 11/08/16 21:00 12/08/16 20:59 11/11/16 02:19 1.25 MG Ipratropium [place] (Atrovent 0.02% 0.5MG/2.5ML Neb) 0.5 mg Q2H PRN INH 11/08/16 21:00 12/08/16 20:59 Levalbuterol 0.63 mg 0.63 mg Q2H PRN INH 11/08/16 21:00 12/08/16 20:59 Promethazine HCl/ Sodium Chloride (Phenergan Inj/ Nss 50ml) 50.5 ml @ 204 mls/hr Q6H PRN IV 11/08/16 23:00 12/08/16 22:59 Ropinirole HCl (Requip Tab) 0.25 mg HS PO 11/09/16 21:00 12/09/16 20:59 11/10/16 22:12 0.25 MG Prednisone (PredniSONE TAB) 40 mg DAILY PO 11/10/16 09:00 12/10/16 08:59 11/11/16 11:00 40 MG Guaifenesin (Organidin Nr Tab) 200 mg Q8H PO 11/10/16 22:00 12/10/16 21:59 11/11/16 05:16 200 MG Last 24 Hours Test 11/10/16 16:07 11/10/16 20:36 11/11/16 10:31 Bedside Glucose 275 mg/dl 291 mg/dl White Blood Count 8.67 K/uL Red Blood Count 3.21 M/uL Hemoglobin 10.2 g/dL Hematocrit 31.1 % Mean Corpuscular Volume 96.9 fL Mean Corpuscular Hemoglobin 31.8 pg Mean Corpuscular Hemoglobin Concent 32.8 g/dl RDW Standard Deviation 55.0 fL RDW Coefficient of Variation 15.7 % Platelet Count 133 K/uL Mean Platelet Volume 10.9 fL Sodium Level 143 mmol/L Potassium Level 3.7 mmol/L Chloride Level 101 mmol/L Carbon Dioxide Level 34 mmol/L Anion Gap 8.0 mmol/L Blood Urea Nitrogen 28 mg/dl Creatinine 4.50 mg/dl Est Creatinine Clear Calc Drug Dose 11.1 ml/min Estimated GFR () 10.5 Estimated GFR (Non- 9.1 BUN/Creatinine Ratio 6.2 Random Glucose 127 mg/dl Calcium Level 8.5 mg/dl Phosphorus Level 2.8 mg/dl Magnesium Level 2.4 mg/dl Assessment & Plan 71 yo female with chest pain which has resolved (noncardiac), harsh/thick cough >started steroids today. pt is on home oxygen at night and prn activity. had weakness with PT on 11/10 and d/c deferred. esrd -had hd today w/o issue; k, volume status, bp, anemia ok -next hd tentatively for 11/14 as inpt/outpt depending on clinical status hypoxia & cough -dr wilkes working on optimizing respiratory meds/care care coordinated w/ Dr Wilkes
[2016-11-11] MEDS ORDERED: AZITHROMYCIN 250 MG TAB PO ONE (14:00)
--- NOTE | 2016-11-11 16:16 | Progress Note ---
Medicine Progress Note Date & Time of Visit: Nov 11, 2016 at 15:59. Subjective Pt was seen and examined Sitting in bed with no distress Pt wants to go home today She said that she feels better She said the cough improved she did better today during physical therapy Denies any chest pain, palpitation, dizziness Objective Last 8 Hrs Date Time Temp Pulse Resp B/P Pulse Ox O2 Delivery O2 Flow Rate FiO2 11/11/16 15:03 36.9 70 18 113/65 94 Nasal Cannula 2.0 11/11/16 14:41 68 18 93 Nasal Cannula 2.0 11/11/16 11:15 Nasal Cannula 2.0 11/11/16 09:45 36.9 71 153/75 11/11/16 09:00 70 143/74 11/11/16 08:45 70 154/74 11/11/16 08:30 70 132/70 11/11/16 08:15 72 134/67 11/11/16 08:00 72 127/67 Physical Exam: General- No acute distress Head- atraumatic Eyes- PERRL, EOMI ENT- oropharynx clear Neck- supple, no JVD Lungs- Coarse breath sound Heart- regular rhythm; no murmur Abdomen- normal bowel sounds, soft, nontender Extremities-no calf tenderness Neuro- alert, oriented x 3; PERRL, EOMI; Skin- warm & dry Laboratory Results: Last 24 Hours Test 11/10/16 16:07 11/10/16 20:36 11/11/16 10:31 Bedside Glucose 275 mg/dl 291 mg/dl White Blood Count 8.67 K/uL Red Blood Count 3.21 M/uL Hemoglobin 10.2 g/dL Hematocrit 31.1 % Mean Corpuscular Volume 96.9 fL Mean Corpuscular Hemoglobin 31.8 pg Mean Corpuscular Hemoglobin Concent 32.8 g/dl RDW Standard Deviation 55.0 fL RDW Coefficient of Variation 15.7 % Platelet Count 133 K/uL Mean Platelet Volume 10.9 fL Sodium Level 143 mmol/L Potassium Level 3.7 mmol/L Chloride Level 101 mmol/L Carbon Dioxide Level 34 mmol/L Anion Gap 8.0 mmol/L Blood Urea Nitrogen 28 mg/dl Creatinine 4.50 mg/dl Est Creatinine Clear Calc Drug Dose 11.1 ml/min Estimated GFR () 10.5 Estimated GFR (Non- 9.1 BUN/Creatinine Ratio 6.2 Random Glucose 127 mg/dl Calcium Level 8.5 mg/dl Phosphorus Level 2.8 mg/dl Magnesium Level 2.4 mg/dl Assessment & Plan SHORTNESS OF BREATH Likely multifactorial from acute bronchitis and acute on chronic systolic CHF Has fever 37.7, no leukocytosis, no tachycardia or hypotension CXR- congestive failure, no infiltrate; + elevated BNP >12,000 Procalcitonin level normal Levaquin was D/C after procalcitonin result negative influenza marker negative Continue Neb treatments Repeat CXR showed Mild pulmonary vascular congestion has improved. continue taper dose of prednisone Zithromax 500mg today, will discharge on Zithromax 250 mg dailyx 4days continue supplement oxygen CHEST PAIN Rule out ACS- risk factors ESRD, DM, HTN, HL EKG did not shown any significant ST change Elevated troponin that can be related to ESRD Prior cath May 2012 showed non obstructive CAD cardiology consulted recommended no further cardiac testing Stable from cardiac standpoint AMBULATORY DYSFUNCTION continue physical therapy Recommend home-health services to follow up. manager of case made aware advised pt to increase oxygen to 3L during ambulation and continue 2L at rest CHRONIC SYSTOLIC CHF/ PULMONARY HTN Prior echo 07/01/16- mild concentric LVH. Mildly reduced LV systolic function with abnormal septal wall motion consistent with RV pressure/volume overload and borderline global hypokinesis, EF 40-45%. Mild MR. Severe TR. Mild biatrial enlargement. Dilated RV chamber with reduced RV systolic function by TAPSE. Severe pulmonary hypertension is present. Appears volume overloaded with CXR showing congestive findings, BNP elevated Repeat Echo today Conclusions -- * Compared to previous study of 07/03/16: LV systolic function slightly improved. * Normal LV chamber size with moderate concentric LVH. * Mildly reduced LV systolic function, EF 45-50%. * Flattened septum is consistent with RV pressure/volume overload. * Dilated RV chamber with reduced RV systolic function by TAPSE. * Grade II diastolic dysfunction. * Mild mitral regurgitation. * Severe tricupid regurgitation. * Mild left atrial enlargement. * Pulmonary hypertension is present. * PASP of 74 mmHg assuming RA pressure of 8 mmHg (stable). ESRD ON HD Dialysis Sunday She was HD today next HD will be on 11/14 Stable from renal standpoint DM TYPE 2 Continue Lantus Insulin sliding scale coverage Monitor BSG AC HS PAROXYSMAL ATRIAL FIBRILLATION Not on Coumadin due to history of hemorrhagic pericardial effusion/ tamponade Continue amiodarone with current dose as per cardio SYMPTOMATIC BRADYCARDIA S/p pacemaker stable HISTORY OF DVT/ PE s/p IVC filter Not on anticoagulation SLEEP APNEA/ OBESITY HYPOVENTILATION Continue bipap HS Continue nocturnal O2 HYPERTENSION BP is stable HISTORY OF TIA Continue aspirin, statin DEPRESSION Continue Zoloft GERD Continue PPI and Zantac DVT PROPHYLAXIS SCD's due to history of hemorrhagic pericardial effusion Disposition Will discharge home today Recommend home-health services to follow up. manager of case made aware Continue PT/OT Consultants: Nephrology Cardiology PT/OT eval Current Inpatient Medications: Current Inpatient Medications Medications (Trade) Dose Ordered Sig/Tyesha Route Start Time Stop Time Status Last Admin Dose Admin Miscellaneous (Iv Fluids Completed) 1 ea PRN PRN N/A 11/08/16 19:45 11/08/17 19:44 Acetaminophen (Tylenol Tab) 650 mg Q4H PRN PO 11/08/16 20:00 12/08/16 19:59 11/10/16 12:53 650 MG Ondansetron HCl (Zofran Inj) 4 mg Q6H PRN IV 11/08/16 20:00 12/08/16 19:59 11/08/16 22:19 4 MG Insulin Aspart (novoLOG ASPART) SLIDING SCALE If C... ACHS SC 11/08/16 21:00 12/08/16 20:59 11/10/16 21:09 6 UNITS Glucose (Glucose 40% Gel) 15-30 GRAMS 15 GRAMS... UD PRN PO 11/08/16 20:15 12/08/16 20:14 Glucose (Glucose Chew Tab) 4-8 Tablets 4 Tabl... UD PRN PO 11/08/16 20:15 12/08/16 20:14 Dextrose (Dextrose 50% 50ML Syringe) 25-50ML OF 50% DW IV FOR... UD PRN IV 11/08/16 20:15 12/08/16 20:14 Glucagon (Glucagon Inj) 1 mg UD PRN SQ 11/08/16 20:15 12/08/16 20:14 Allopurinol (Zyloprim Tab) 100 mg QAM PO 11/09/16 09:00 12/09/16 08:59 11/11/16 11:01 100 MG Amiodarone HCl (Cordarone Tab) 400 mg DAILY PO 11/09/16 09:00 12/09/16 08:59 11/11/16 11:01 400 MG Aspirin (Ecotrin Tab) 81 mg QAM PO 11/09/16 09:00 12/09/16 08:59 11/11/16 11:02 81 MG Atorvastatin Calcium (Lipitor Tab) 40 mg DAILY PO 11/09/16 09:00 12/09/16 08:59 11/11/16 11:01 40 MG Clonazepam (Klonopin Tab) 0.25 mg HS PRN PO 11/08/16 20:15 12/08/16 20:14 11/09/16 20:23 0.25 MG Gabapentin (Neurontin Cap) 100 mg BID PO 11/08/16 21:00 12/08/16 20:59 11/11/16 11:01 100 MG Acetaminophen/ Hydrocodone Bitart ([place] 5/325 Tab) 1 tab Q6 PRN PO 11/08/16 20:15 11/22/16 20:14 11/11/16 03:53 1 TAB Insulin Glargine (Lantus Solostar Pen) 10 unit HS SQ 11/08/16 21:00 12/08/16 20:59 11/10/16 21:09 10 UNIT Lorazepam (Ativan Tab) 0.5 mg TID PRN PO 11/08/16 20:15 12/08/16 20:14 11/09/16 23:28 0.5 MG Multivitamins (Multivitamin Tab) 1 tab QAM PO 11/09/16 09:00 12/09/16 08:59 11/11/16 11:01 1 TAB Nitroglycerin (Nitrostat Tab) 0.4 mg UD PRN [place] 11/08/16 20:15 12/08/16 20:14 Ranitidine HCl (zANTac TAB) 150 mg BID PRN PO 11/08/16 20:15 12/08/16 20:14 Sertraline HCl (Zoloft Tab) 100 mg BID PO 11/08/16 21:00 12/08/16 20:59 11/11/16 11:01 100 MG Calcium Acetate (Phoslo Cap) 667 mg TIDM PO 11/09/16 07:30 12/09/16 07:29 1/7/17 13:51 667 MG Pantoprazole Sodium (Protonix Tab) 40 mg QAM PO 11/09/16 09:00 12/09/16 08:59 11/11/16 11:01 40 MG Ipratropium [place] (Atrovent 0.02% 0.5MG/2.5ML Neb) 0.5 mg Q6R INH 11/08/16 21:00 12/08/16 20:59 11/11/16 14:40 0.5 MG Levalbuterol (Xopenex 1.25MG/ 0.5ML Neb) 1.25 mg Q6R INH 11/08/16 21:00 12/08/16 20:59 11/11/16 14:40 1.25 MG Ipratropium [place] (Atrovent 0.02% 0.5MG/2.5ML Neb) 0.5 mg Q2H PRN INH 11/08/16 21:00 12/08/16 20:59 Levalbuterol 0.63 mg 0.63 mg Q2H PRN INH 11/08/16 21:00 12/08/16 20:59 Promethazine HCl/ Sodium Chloride (Phenergan Inj/ Nss 50ml) 50.5 ml @ 204 mls/hr Q6H PRN IV 11/08/16 23:00 12/08/16 22:59 Ropinirole HCl (Requip Tab) 0.25 mg HS PO 11/09/16 21:00 12/09/16 20:59 11/10/16 22:12 0.25 MG Prednisone (PredniSONE TAB) 40 mg DAILY PO 11/10/16 09:00 12/10/16 08:59 11/11/16 11:00 40 MG Guaifenesin (Organidin Nr Tab) 200 mg Q8H PO 11/10/16 22:00 12/10/16 21:59 11/11/16 13:51 200 MG Azithromycin (Zithromax Tab) 250 mg QAM PO 11/12/16 08:00 11/16/16 07:59
[2016-11-11] MEDS ORDERED: PRED10TA PO (16:36)
[2016-11-11] MEDS ORDERED: GUAI1TAB68 PO (16:36)
[2016-11-11] MEDS ORDERED: ZTHM250 PO (16:36)
[2016-11-11] MEDS ORDERED: ATRINS INH (16:36)
[2016-11-11] MEDS ORDERED: XPNINS INH (16:36)
--- NOTE | 2016-11-11 16:45 | Discharge Instructions ---
Discharge Instructions Admission Reason for Admission: Chest Pain,Sob Discharge Discharge Diagnosis / Problem: Acute Bronchitis, ambulatory dysfunction, Chest pain, ESRD Discharge Goals Goal(s): Decrease discomfort, Improve function, Improve disease control Activity Recommendations Activity Limitations: resume your previous activity (as tolerated) . Instructions / Follow-Up Instructions / Follow-Up Follow up with Dr. Grant on Nov 13 at 12:50 ( I called the son to let pt know about the follow up appointment) Fall precaution use walker to ambulate continue physical therapy manager drilling will arranged for home-health services to follow up. Increase oxygen to 3L during ambulation and continue 2L at rest Next HD is on Nov 14 Complete the course of the antibiotic Take steroid taper as directed Current Hospital Diet Patient's current hospital diet: AHA Diet (Heart Healthy) Discharge Diet Recommended Diet: AHA Diet (Heart Healthy), Diabetes Type 2 Diet Pending Studies Studies pending at discharge: no Laboratory Results Lipid Panel Test 11/09/16 04:17 Range/Units Triglycerides Level 89 0-150 mg/dl Cholesterol Level 113 0-200 mg/dl HDL Cholesterol 53 mg/dl Cholesterol/HDL Ratio 2.1 LDL Cholesterol, Calculated 42 mg/dl Medical Emergencies . Who to Call and When: Medical Emergencies: If at any time you feel your situation is an emergency, please call 911 immediately. . Non-Emergent Contact Non-Emergency issues call your: Primary Care Provider Call Non-Emergent contact if: you have a fever, you have any medication questions . . "Provider Documentation" section prepared by Cristóbal Wilkes. VTE Core Measure Inpt VTE Proph given/why not?: SCD's
[2016-11-11] MEDS ORDERED: HYDROCODONE/ACETAMOPHEN 5/325MG TAB PO PRN (16:48)
[2016-11-11] MEDS ORDERED: HYDR-5688 PO (16:50)
[2016-11-12] MEDS ORDERED: AZITHROMYCIN 250 MG TAB PO SCH (08:00)
--- NOTE | 2016-11-12 20:26 | Discharge Summary ---
Discharge Summary Admission Date: Nov 08, 2016 at 19:21 Discharge Date: Nov 11, 2016 Discharge Disposition: Home Principal Diagnosis: [place] of Breath Secondary Diagnoses/Problems: Elevated troponin ESRD Ambulatory dysfunction Chest pain systolic CHF Procedures: Patient Name: JUDY CLAY Dictating Provider: Asif Olivier D.O. Dictation Date: Report Signed By: Date: 1945 Routing Clerk: ARMANDO Room/Bed: [facility] Family Physician: Princess Grant M.D. SC: C.2 Primary Care Physician: Princess Grant M.D. Adm Date: 11/08/16 Attending Physician: Cristóbal Wilkes M.D. Dis Date: Admitting Physician: Cristóbal Wilkes M.D. Ordering Physician: *NOTICE TO RECEIVING REPUBLICAN AGENCY This information is strictly Confidential and protected under [place] law. [place] law prohibits you from making any further disclosure of this information unless further disclosure is expressly permitted by the written consent of the person to whom it pertains or is authorized by law. A general authorization for the release of medical or other information is not sufficient for this purpose. Hospital accepts no responsibility if the information is made available to any other person, INCLUDING THE PATIENT. Interpretation Summary * Name: JUDY CLAY Study Date: 11/09/2016 11:52 AM BP: 150/77 mmHg * Patient Location: [facility]\S\1 HR: 69 * : 1945 (M/d/yyyy) Gender: Female Height: 60 in * Age: 71 yrs Ethnicity: [place] Weight: 200 lb * Ordering Physician: Asif Olivier * Referring Physician: Self, Referred * Performed By: Annabella Jacob [facility] * * Reason For Study: CHEST PAIN * BSA: 1.9 m2 * -- Conclusions -- * Compared to previous study of 07/03/16: LV systolic function slightly improved. * Normal LV chamber size with moderate concentric LVH. * Mildly reduced LV systolic function, EF 45-50%. * Flattened septum is consistent with RV pressure/volume overload. * Dilated RV chamber with reduced RV systolic function by TAPSE. * Grade II diastolic dysfunction. * Mild mitral regurgitation. * Severe tricupid regurgitation. * Mild left atrial enlargement. * Pulmonary hypertension is present. * PASP of 74 mmHg assuming RA pressure of 8 mmHg (stable). Procedure Details * A complete two-dimensional transthoracic echocardiogram was performed (2D, M-mode, Doppler and color flow Doppler). * A contrast injection of Definity was performed to improve assessment of LV function. * Contrast was injected into an intravenous site in the right arm. * One vial of Definity ultrasound contrast was diluted in normal saline to a total volume of 10 ml. A total of '2' ml of solution was administered during imaging. * Lot # [id number] of Definity utilized for procedure. * Expiration date APR 21. * The attending nurse who injected the contrast agent was JENNA SANDY RN. Left Ventricle * The left ventricle is normal in size. * There is no thrombus. * There is moderate concentric left ventricular hypertrophy. * Ejection Fraction = 45-50%. * Left ventricular systolic function is mildly reduced. * Flattened septum is consistent with RV pressure/volume overload. Right Ventricle * The right ventricular cavity size is enlarged (proximal parasternal long axis right ventricular outflow tract dimension >3.3 cm). * The right ventricular systolic function is reduced as assessed by tricuspid annular plane systolic excursion (TAPSE) (TAPSE <1.6 cm). Atria * The left atrium is mildly dilated. * Right atrial size is normal. * No ASD detected; PFO is not assessed. Mitral Valve * The mitral valve anatomy is normal. * There is no mitral valve stenosis. * There is mild mitral regurgitation. Tricuspid Valve * The tricuspid valve anatomy is normal. * There is no tricuspid stenosis. * There is severe tricuspid regurgitation. Aortic Valve * The aortic valve is normal in structure and function. Pulmonic Valve * The pulmonary valve is not well seen, but the Doppler examination is normal without significant regurgitation or stenosis. Great Vessels * The aortic root is normal size. Pericardium/Pleural * There is no pericardial effusion. Left Ventricular Diastolic Function * Diastolic dysfunction, Grade II (pseudonormalization pattern). MMode 2D Measurements and Calculations IVSd 1.6 cm IVSs 1.7 cm LVIDd 4.8 cm LVIDs 3.7 cm LVPWd 1.4 cm LVPWs 1.6 cm IVS/LVPW 1.2 FS 22.1 % EDV(Teich) 105.1 ml ESV(Teich) 58.1 ml EF(Teich) 44.7 % EDV(cubed) 107.3 ml ESV(cubed) 50.6 ml EF(cubed) 52.8 % % IVS thick 9.1 % % LVPW thick 19.3 % LV mass(C)d 291.0 grams LV mass(C)dI 155.9 grams/m\S\2 LV mass(C)s 250.3 grams LV mass(C)sI 134.1 grams/m\S\2 SV(Teich) 46.9 ml SI(Teich) 25.1 ml/m\S\2 SV(cubed) 56.7 ml SI(cubed) 30.4 ml/m\S\2 Ao root diam 3.5 cm Ao root area 9.5 cm\S\2 ACS 1.9 cm LA dimension 4.6 cm LA/Ao 1.3 LVOT diam 2.0 cm LVOT area 3.1 cm\S\2 LVAd ap4 30.2 cm\S\2 LVLd ap4 7.4 cm EDV(MOD-sp4) 101.6 ml EDV(sp4-el) 104.8 ml LVAs ap4 22.5 cm\S\2 LVLs ap4 6.6 cm ESV(MOD-sp4) 60.8 ml ESV(sp4-el) 65.5 ml EF(MOD-sp4) 40.2 % EF(sp4-el) 37.5 % LVAd ap2 27.1 cm\S\2 LVLd ap2 6.7 cm EDV(MOD-sp2) 94.2 ml EDV(sp2-el) 92.9 ml LVAs ap2 19.2 cm\S\2 LVLs ap2 6.0 cm ESV(MOD-sp2) 51.9 ml ESV(sp2-el) 52.0 ml EF(MOD-sp2) 44.9 % EF(sp2-el) 44.1 % LVLd %diff -10.17 % EDV(MOD-bp) 104.2 ml LVLs %diff -9.19 % ESV(MOD-bp) 59.4 ml EF(MOD-bp) 43.0 % SV(MOD-sp4) 40.8 ml SI(MOD-sp4) 21.9 ml/m\S\2 SV(MOD-sp2) 42.3 ml SI(MOD-sp2) 22.7 ml/m\S\2 SV(MOD-bp) 44.8 ml SI(MOD-bp) 24.0 ml/m\S\2 SV(sp4-el) 39.3 ml SI(sp4-el) 21.1 ml/m\S\2 SV(sp2-el) 40.9 ml SI(sp2-el) 21.9 ml/m\S\2 Doppler Measurements and Calculations MV E max candice 114.3 cm/sec MV A max candice 41.5 cm/sec MV E/A 2.8 MV P1/2t max candice 122.0 cm/sec MV P1/2t 85.0 msec MVA(P1/2t) 2.6 cm\S\2 MV dec slope 420.5 cm/sec\S\2 MV dec time 0.19 sec Ao V2 max 154.2 cm/sec Ao max PG 9.5 mmHg Ao max PG (full) 6.9 mmHg SHIRA(V,A) 1.6 cm\S\2 SHIRA(V,D) 1.6 cm\S\2 LV V1 max PG 2.7 mmHg LV V1 max 81.4 cm/sec MR max candice 470.4 cm/sec MR max PG 88.5 mmHg TR max candice 405.7 cm/sec Consultations: Nephrology Cardiology PT/OT eval Medication Reconciliation New Medications: Azithromycin (Azithromycin) 250 Mg Tab 250 MG PO QAM for 4 Days, #4 TAB Guaifenesin (Organ-I Nr) 200 Mg Tab 200 MG PO Q8H PRN for Cough for 10 Days, #30 TAB Ipratropium [place] (Ipratropium [place]) 0.5 Mg/2.5 Ml Nebu 0.5 MG INH Q6R PRN for SOB/Wheezing for 30 Days Levalbuterol (Levalbuterol HCl) 0.63 Mg/3 Ml Nebu 0.63 MG INH Q6H PRN for SOB/WHEEZING for 30 Days Prednisone Tab (Prednisone) 10 Mg Tab 10 MG PO UD for 10 Days, #30 TAB take 4 tabs for 2 days, then 3 tabs for 3 days, then 2 tabs for 3 days, then 1 tab for 2 days, and stop. Changed Medications: Hydrocodone/Acetaminophen 5MG/325MG ([place] 5MG/325MG) Tab 1 TABLET PO Q12 PRN for Pain for 5 Days (Changed from: Q6) MODERATE, SEVERE. Continued Medications: Acetaminophen (Tylenol Extra Strength) 500 Mg Tab 1 TAB PO Q4HPRN PRN for Pain Albuterol (Ventolin Hfa) 60 Puffs/5400 Mcg Aers 2 PUFFS INH Q6 PRN for SOB/Wheezing Allopurinol (Zyloprim) 100 Mg Tab 100 MG PO QAM Amiodarone Hcl (Cordarone) 200 Mg Tab 400 MG PO DAILY, TAB Aspirin (Aspirin Ec) 81 Mg Tab 1 TAB PO QAM Atorvastatin (Lipitor) 40 Mg Tab 40 MG PO DAILY, TAB Calcium Acetate (Phosphate Bin (Calcium Acetate) 667 Mg Tab 1 TAB PO TIDM Clonazepam (Klonopin) 0.5 Mg Tab 0.25 MG PO HS PRN for Anxiety Esomeprazole Magnesium (Nexium) 40 Mg Cap 40 MG PO DAILY, CAP Gabapentin (Neurontin) 100 Mg Cap 100 MG PO BID, CAP Insulin Glargine (Lantus Solostar Pen) 100 Unit/ Inj 10 UNIT SQ HS, ML Insulin Lispro (Human) (Humalog Kwikpen) 100 Unit/Ml Inj 5 UNITS SC AC, #1 1 Refill Lorazepam (Ativan) 0.5 Mg Tab 0.5 MG PO TID PRN for Anxiety/Agitation, TAB Multiple Vitamin (Multivitamin) 1 Tab Tab 1 TAB PO QAM Nitroglycerin (Nitrostat) 0.4 Mg Sub 0.4 MG UT PRN, BTL Oxygen (Oxygen) Gas 2 LITERS NA HS PRN for AND WITH EXERTION Ranitidine (Zantac) 150 Mg Tab 150 MG PO BID PRN for Heartburn Sertraline Hcl (Zoloft) 100 Mg Tab 100 MG PO BID Admission Information HPI (per Admitting provider): This is a 71 y/o female with PMH of ESRD on dialysis, atrial fibrillation, s/p pacemaker, DM 2, chronic respiratory failure with hypoxia on oxygen at bedtime and as needed, chronic systolic CHF, h/o PE, hypertension, TIA, GERD, HL, and other problems listed below who presents to the ED with SOB and chest pain. Pt follows with Dr. Grant for primary care and Dr. Olivier for cardiology. Patient recently became ill last (6 days ago) with cough productive of yellow sputum, sinus congestion, subjective warmth and chills, myalgias. She was seen in [facility] ER over the weekend and tested negative for influenza and had CXR neg for PNA. She continued to feel ill, then today when ambulating in the [place] apartment became SOB even on her 2 liters of oxygen which is not usual for her. When she sat down she noticed chest pain described as pressure in central chest without radiation. That lasted 5-10 minutes then resolved. 911 was called and when EMS arrived she took 2 puffs of her inhaler and SOB resolved shortly after. Then in the ER patient was feeling better, then when she got up and walked she became SOB again and had chest pain when she sat down after exerting herself. Chest pain is now resolved. She also had nausea with dry heaves this AM. In the ER she was hypoxic to 89% on RA and improved on 2 liters NC. She is mildly febrile to 37.7. Patient is on dialysis , , Sat with last tx yesterday. Dialyzes in [place] with Dr. Guevara and Dr. Jacques. Her weight is at baseline. No edema. She has chronic orthopnea requiring 2 pillows. No recent hospitalization or antibiotics. Denies history of asthma or COPD. Physical Exam (per Admitting): General Appearance: no apparent distress, + obese, + pertinent finding ( pleasant cooperative alert elderly female) Head: normocephalic, atraumatic Eyes: normal inspection, PERRL, EOMI ENT: hearing grossly normal, TMs normal, pharynx normal Neck: supple, no JVD, trachea midline Respiratory/Chest: no respiratory distress, no accessory muscle use, + pertinent finding (coughing during exam, scattered rhonchi, crackles bilateral bases) Cardiovascular: regular rate, rhythm Abdomen/GI: normal bowel sounds, non tender, soft Extremities/Musculoskelatal: normal inspection, no calf tenderness, no pedal edema, + pertinent finding (DP pulses 2+ bilaterally) Neurologic/Psych: alert, normal mood/affect, oriented x 3, + pertinent finding (grossly without focal deficit) Skin: normal color, warm/dry, no rash Hospital Course SHORTNESS OF BREATH Likely multifactorial from acute bronchitis and acute on chronic systolic CHF Has fever 37.7, no leukocytosis, no tachycardia or hypotension CXR- congestive failure, no infiltrate; + elevated BNP >12,000 Procalcitonin level normal Levaquin was D/C after procalcitonin result negative influenza marker negative Continue Neb treatments Repeat CXR showed Mild pulmonary vascular congestion has improved. continue taper dose of prednisone Zithromax 500mg today, will discharge on Zithromax 250 mg dailyx 4days continue supplement oxygen CHEST PAIN Rule out ACS- risk factors ESRD, DM, HTN, HL EKG did not shown any significant ST change Elevated troponin that can be related to ESRD Prior cath May 2012 showed non obstructive CAD cardiology consulted recommended no further cardiac testing Stable from cardiac standpoint AMBULATORY DYSFUNCTION continue physical therapy Recommend home-health services to follow up. case assembler made aware advised pt to increase oxygen to 3L during ambulation and continue 2L at rest CHRONIC SYSTOLIC CHF/ PULMONARY HTN Prior echo 07/01/16- mild concentric LVH. Mildly reduced LV systolic function with abnormal septal wall motion consistent with RV pressure/volume overload and borderline global hypokinesis, EF 40-45%. Mild MR. Severe TR. Mild biatrial enlargement. Dilated RV chamber with reduced RV systolic function by TAPSE. Severe pulmonary hypertension is present. Appears volume overloaded with CXR showing congestive findings, BNP elevated Repeat Echo today Conclusions -- * Compared to previous study of 07/03/16: LV systolic function slightly improved. * Normal LV chamber size with moderate concentric LVH. * Mildly reduced LV systolic function, EF 45-50%. * Flattened septum is consistent with RV pressure/volume overload. * Dilated RV chamber with reduced RV systolic function by TAPSE. * Grade II diastolic dysfunction. * Mild mitral regurgitation. * Severe tricupid regurgitation. * Mild left atrial enlargement. * Pulmonary hypertension is present. * PASP of 74 mmHg assuming RA pressure of 8 mmHg (stable). ESRD ON HD Dialysis Sunday She was HD today next HD will be on 11/14 Stable from renal standpoint DM TYPE 2 Continue Lantus Insulin sliding scale coverage Monitor BSG AC HS PAROXYSMAL ATRIAL FIBRILLATION Not on Coumadin due to history of hemorrhagic pericardial effusion/ tamponade Continue amiodarone with current dose as per cardio SYMPTOMATIC BRADYCARDIA S/p pacemaker stable HISTORY OF DVT/ PE s/p IVC filter Not on anticoagulation SLEEP APNEA/ OBESITY HYPOVENTILATION Continue bipap HS Continue nocturnal O2 HYPERTENSION BP is stable HISTORY OF TIA Continue aspirin, statin DEPRESSION Continue Zoloft GERD Continue PPI and Zantac DVT PROPHYLAXIS SCD's due to history of hemorrhagic pericardial effusion Disposition Will discharge home today Recommend home-health services to follow up. case assembler made aware Continue PT/OT Total time spent on discharge = 45 minutes This includes examination of the patient, discharge planning, medication reconciliation, and communication with other providers. Discharge Instructions Follow up with Dr. Grant on Nov 13 at 12:50 ( I called the son to let pt know about the follow up appointment) Fall precaution use walker to ambulate continue physical therapy adult manager will arranged for home-health services to follow up. Increase oxygen to 3L during ambulation and continue 2L at rest Next HD is on Nov 14 Complete the course of the antibiotic Take steroid taper as directed Script given for nebulizer machine Additional Copies To Princess Grant M.D.
[2016-11-17] MEDS ORDERED: AZIT250T5 PO (10:54)
== END 2016-11-11 18:35 | disposition home health service (06) | DRG 291 ==
LOC: ENRESERVDT → ENRESERVTM → EDBD 16:16 → C.EDB 16:17 → C.2T 19:21 → C.MS4W 11-10 22:34
PROVIDERS: ADMIT Internal Medicine; ATTEND Internal Medicine
DX: I13.2 Hypertensive heart and chronic kidney disease with heart failure and with stage 5 chronic kidney disease, or end stage renal disease (principal); I50.23 Acute on chronic systolic (congestive) heart failure; N18.6 End stage renal disease; J96.11 Chronic respiratory failure with hypoxia; E66.2 Morbid (severe) obesity with alveolar hypoventilation; J20.9 Acute bronchitis, unspecified; I42.9 Cardiomyopathy, unspecified; R07.89 Other chest pain; I27.2 Other secondary pulmonary hypertension; I07.1 Rheumatic tricuspid insufficiency; R26.9 Unspecified abnormalities of gait and mobility; E11.22 Type 2 diabetes mellitus with diabetic chronic kidney disease; I48.0 Paroxysmal atrial fibrillation; F32.9 Major depressive disorder, single episode, unspecified; K21.9 Gastro-esophageal reflux disease without esophagitis; I25.10 Atherosclerotic heart disease of native coronary artery without angina pectoris; D63.1 Anemia in chronic kidney disease; N25.0 Renal osteodystrophy; E78.5 Hyperlipidemia, unspecified; Z99.2 Dependence on renal dialysis; Z99.81 Dependence on supplemental oxygen; Z95.0 Presence of cardiac pacemaker; Z86.711 Personal history of pulmonary embolism; Z86.73 Personal history of transient ischemic attack (TIA), and cerebral infarction without residual deficits; Z87.891 Personal history of nicotine dependence; Z79.4 Long term (current) use of insulin; Z79.82 Long term (current) use of aspirin; Z79.899 Other long term (current) drug therapy; Z88.5 Allergy status to narcotic agent; Z88.8 Allergy status to other drugs, medicaments and biological substances; Z91.041 Radiographic dye allergy status; Z82.49 Family history of ischemic heart disease and other diseases of the circulatory system; Z83.3 Family history of diabetes mellitus; Z84.1 Family history of disorders of kidney and ureter; R11.0 Nausea; G89.29 Other chronic pain

== ENCOUNTER 2016-11-14 10:36 | Inpatient (IN) | payer OTHER ==
[2016-11-14] VITALS (19 sets, daily range): BP systolic 115–151; BP diastolic 67–81; PULSE 69–72; TEMP 36.5–37; O2SAT 96–98; BMI 40.9
[~2016-11-14] VITALS: Ht 152.4 cm; Wt 88.8 kg
[~2016-11-14 10:36] MED LIST changes: +ATRINS INH; +GUAI1TAB68 PO; +PRED10TA PO; +PRVHFAIN INH; +XPNINS INH; +ZTHM250 PO
[2016-11-14 11:05] LABS: BASO % 0.1 %; BASO ABS # 0.01 K/uL (0-0.2); COMPLETE YES; EOS % 0.1 %; IG% 0.9 %; LYMPH % 8.2 %; LYMPH ABS # 0.88 K/uL (1.2-3.4); MEAN CELL VOLUME 97.6 fL (80-100); MEAN CORPUSCULAR HEMOGLOBIN 32.3 pg (25-34); MEAN CORPUSCULAR HGB CONC 33.1 g/dl (32-36); MONO % 4.1 %; NEUT % 86.6 %; PLATELET COUNT 149 K/uL (130-400); RED BLOOD COUNT 3.28 M/uL (4.2-5.4); WHITE BLOOD COUNT 10.78 K/uL (4.8-10.8)
[2016-11-14 11:15] LABS: INR 1.1 (0.9-1.1); PARTIAL THROMBOPLASTIN RATIO 0.9; PROTHROMBIN TIME (PATIENT) 11.4 SECONDS (9.0-12.0)
[2016-11-14 11:35] LABS: POINT OF CARE TROPONIN I 0.05 ng/ml (0-0.045)
--- NOTE | 2016-11-14 11:35 | DIAGNOSTIC IMAGING REPORT ---
SINGLE VIEW CHEST CLINICAL HISTORY: Atypical chest pain. FINDINGS: An AP, portable, upright chest radiograph is compared to study dated 11/10/2016 and correlated with chest CT dated 11/15/2015. The examination is degraded by portable technique, apical and out of positioning, large body habitus, and patient rotation. A 2-lead cardiac pacemaker is unchanged in position and partially obscures the right mid chest. The heart is enlarged and there is atherosclerotic calcification of the thoracic aorta. There is pulmonary vascular congestion. No airspace consolidation, large pleural effusion, or pneumothorax is seen. Linear atelectasis is noted in the left midlung. The skeletal structures are osteopenic. The bony thorax is grossly intact. IMPRESSION: 1. Cardiomegaly and cardiac pacemaker with evidence of congestive failure. 2. No airspace consolidation or large pleural effusion is seen. Electronically signed by: Rey Cardoza M.D. 11/14/2016 11:33 AM Dictated Date/Time: 11/14/2016 11:32 AM
[2016-11-14 11:40] LABS: BUN/CREATININE RATIO 10.7 (10-20); CALCIUM 8.9 mg/dl (8.5-10.1); POTASSIUM 5.5 mmol/L (3.5-5.1)
[2016-11-14] MEDS ORDERED: NITROGLYCERIN OINT 2% 1GM PACKET EXT ONE (12:00)
[2016-11-14] MEDS ORDERED: IPRATROPIUM BROMIDE NEB SOLN 0.02% 2.5 ML VIAL INH PRN (12:30)
[2016-11-14] MEDS ORDERED: RANITIDINE HCL 150 MG TAB PO PRN (12:30)
[2016-11-14] MEDS ORDERED: LORAZEPAM 0.5 MG TAB PO PRN (12:30)
[2016-11-14] MEDS ORDERED: LEVALBUTEROL 0.63MG/3 ML NEB INH PRN (12:30)
[2016-11-14] MEDS ORDERED: NITROGLYCERIN 0.4 MG SL PER TAB CHARGE SL PRN (12:30)
[2016-11-14] MEDS ORDERED: GLUCOSE 40% GEL 15 GM TUBE PO PRN (12:30)
[2016-11-14] MEDS ORDERED: ONDANSETRON INJ 2 MG/ML 2 ML VIAL IV PRN (12:30)
[2016-11-14] MEDS ORDERED: GLUCAGON FOR INJ 1 MG VIAL SQ PRN (12:30)
[2016-11-14] MEDS ORDERED: DEXTROSE 50% 50 ML SYR IV PRN (12:30)
[2016-11-14] MEDS ORDERED: GLUCOSE 10 TABS/TUBE PO PRN (12:30)
[2016-11-14] MEDS ORDERED: CLONAZEPAM 0.5 MG TAB PO PRN (12:30)
[2016-11-14] MEDS ORDERED: ATRINS NEB (12:31)
[2016-11-14] MEDS ORDERED: XPNINS INH (12:31)
--- NOTE | 2016-11-14 12:46 | EMERGENCY ROOM VISIT NOTE ---
History Report prepared by Nic: Konstantin Hernandez Under the Supervision of: Dr. Joby Figueroa M.D. First contact with patient: 10:42 Chief Complaint: ILLNESS Stated Complaint: WEAKNESS/ SHORTNESS OF BREATH History of Present Illness The patient is a 71 year old female with a history of CHF who presents to the Emergency Room via ambulance with complaints of intermittent shortness of breath that was occurring today. The patient also complains of exacerbation of chronic low back pain secondary to spinal stenosis and DDD. The patient had to stop and sit down multiple times when she was leaving her apartment to go for dialysis. She states this was partly due to her back pain and partly due to shortness of breath. The patient has a prescription for Oxycodone, which she had one dose of this morning. The patient is having minimal pain and shortness of breath in the ED currently. The patient often experiences pain and tingling down her right leg secondary to DDD. She does not have any new numbness or weakness. She is also incontinent of bowel at baseline. The patient denies any fevers or chest pain. She recently had bronchitis, which is improving. The patient did not make it to her dialysis treatment today. The patient lives alone at her apartment. Source of History: patient Onset: today Position: other (respiratory) Symptom Intensity: moderate Quality: other (short of breath) Timing: intermittent Modifying Factors (Worsening): exertion Associated Symptoms: + back pain, No chest pain, No fevers, No numbness, No weakness Review of Systems See HPI for pertinent positives & negatives. A total of 10 systems reviewed and were otherwise negative. Past Medical & Surgical Medical Problems: (1) Atrial fibrillation (2) Cardiomegaly (3) Chest pain (4) CHF (congestive heart failure) (5) Diabetic neuropathy (6) DM2 (diabetes mellitus, type 2) (7) End stage renal disease (8) ESRD (end stage renal disease) (9) AC (generalized anxiety disorder) (10) GERD (gastroesophageal reflux disease) (11) Healed or old pulmonary embolism (12) Heart failure (13) HLD (hyperlipidemia) (14) HTN (hypertension) (15) Hyperkalemia (16) Melanoma (17) Obesity hypoventilation syndrome (18) [place] (obstructive sleep apnea) (19) Pacemaker (20) Pulmonary HTN (21) SOB (shortness of breath) (22) TIA (transient ischemic attack) Surgical Problems: (1) H/O total hysterectomy (2) S/P cholecystectomy (3) S/P IVC filter Family History Diabetes mellitus FH: heart disease FATHER MOTHER Kidney disease Social History Smoking Status: Former Smoker Drug Use: none Occupation Status: retired Current/Historical Medications Scheduled Allopurinol (Zyloprim), 100 MG PO QAM Amiodarone Hcl (Cordarone), 400 MG PO DAILY Aspirin (Aspirin Ec), 1 TAB PO QAM Atorvastatin (Lipitor), 40 MG PO DAILY Azithromycin (Azithromycin), 250 MG PO QAM Calcium Acetate (Phosphate Bin (Calcium Acetate), 1 TAB PO TIDM Esomeprazole Magnesium (Nexium), 40 MG PO DAILY Gabapentin (Neurontin), 100 MG PO BID Insulin Glargine (Lantus Solostar Pen), 10 UNIT SQ HS Insulin Lispro (Human) (Humalog Kwikpen), 5 UNITS SC AC Multiple Vitamin (Multivitamin), 1 TAB PO QAM Nitroglycerin (Nitrostat), 0.4 MG UT PRN Prednisone Tab (Prednisone), 10 MG PO UD Sertraline Hcl (Zoloft), 100 MG PO BID Scheduled PRN Acetaminophen (Tylenol Extra Strength), 1 TAB PO Q4HPRN PRN for Pain Clonazepam (Klonopin), 0.25 MG PO HS PRN for Anxiety Guaifenesin (Organ-I Nr), 200 MG PO Q8H PRN for Cough Hydrocodone/Acetaminophen 5MG/325MG ([place] 5MG/325MG), 1 TABLET PO Q12 PRN for Pain Ipratropium [place] (Ipratropium [place]), 1 VIAL NEB QID PRN for SOB/Wheezing Levalbuterol (Levalbuterol HCl), 0.63 MG INH QID PRN for SOB/Wheezing Lorazepam (Ativan), 0.5 MG PO TID PRN for Anxiety/Agitation Oxygen (Oxygen), 2 LITERS NA HS PRN for AND WITH EXERTION Ranitidine (Zantac), 150 MG PO BID PRN for Heartburn Allergies Coded Allergies: Iodinated Diagnostic Agents (Verified Allergy, Mild, "Contrast Media" -- unknown rxn, 11/14/16) Adhesives (Verified Allergy, Unknown, "Tape" -- unknown rxn, 11/14/16) Morphine (Unverified Allergy, Unknown, UNKNOWN, 11/14/16) Warfarin (Unverified Allergy, Unknown, HYPERSENSITIVITY/BLEEDING, 11/14/16) Tomato (Verified Adverse Reaction, Intermediate, GI SYMPTOMS, 11/14/16) Tomato products cause diarrhea. Physical Exam Vital Signs Date Time Temp Pulse Resp B/P Pulse Ox O2 Delivery O2 Flow Rate FiO2 11/14/16 11:28 70 20 128/77 98 Nasal Cannula 3.0 11/14/16 10:50 98 Nasal Cannula 3.0 11/14/16 10:50 93 Room Air 11/14/16 10:43 70 11/14/16 10:43 37.1 70 20 121/56 95 Nasal Cannula 3.0 Physical Exam Constitutional: Vital signs reviewed. Eyes: Pupils are equal round reactive to light. Conjunctiva are noninjected. ENT: Pharynx is clear without erythema or exudate. Mucous membranes are moist. Neck supple without meningeal signs. Respiratory: Clear to auscultation bilaterally. Breath sounds are equal bilaterally. No wheezing or rales. Cardiovascular: Regular rate and rhythm. No rubs or gallops. GI: Soft, nondistended and nontender. Bowel sounds are present. Musculoskeletal: No peripheral edema. No lower extremity tenderness. Integumentary: No cyanosis. Neurological: The patient is awake and alert. No focal deficits. Motor and sensation are intact in the distal lower extremities. Psychiatric: Normal affect. Medical Decision & Procedures ER Provider Diagnostic Interpretation: X-ray results as stated below per interpretation by me and the radiologist: SINGLE VIEW CHEST CLINICAL HISTORY: Atypical chest pain. FINDINGS: An AP, portable, upright chest radiograph is compared to study dated 11/10/2016 and correlated with chest CT dated 11/15/2015. The examination is degraded by portable technique, apical and out of positioning, large body habitus, and patient rotation. A 2-lead cardiac pacemaker is unchanged in position and partially obscures the right mid chest. The heart is enlarged and there is atherosclerotic calcification of the thoracic aorta. There is pulmonary vascular congestion. No airspace consolidation, large pleural effusion, or pneumothorax is seen. Linear atelectasis is noted in the left midlung. The skeletal structures are osteopenic. The bony thorax is grossly intact. IMPRESSION: 1. Cardiomegaly and cardiac pacemaker with evidence of congestive failure. 2. No airspace consolidation or large pleural effusion is seen. Electronically signed by: Rey Cardoza M.D. 11/14/2016 11:33 AM Dictated Date/Time: 11/14/2016 11:32 AM Laboratory Results 11/14/16 10:05 Red Blood Count 3.28, Mean Corpuscular Volume 97.6, Mean Corpuscular Hemoglobin 32.3, Mean Corpuscular Hemoglobin Concent 33.1, Mean Platelet Volume 12.0, Neutrophils (%) (Auto) 86.6, Lymphocytes (%) (Auto) 8.2, Monocytes (%) (Auto) 4.1, Eosinophils (%) (Auto) 0.1, Basophils (%) (Auto) 0.1, Neutrophils # (Auto) 9.34, Lymphocytes # (Auto) 0.88, Monocytes # (Auto) 0.44, Eosinophils # (Auto) 0.01, Basophils # (Auto) 0.01 11/14/16 10:05 Test 11/14/16 10:05 11/14/16 11:14 White Blood Count 10.78 K/uL (4.8-10.8) Red Blood Count 3.28 M/uL (4.2-5.4) Hemoglobin 10.6 g/dL (12.0-16.0) Hematocrit 32.0 % (37-47) Mean Corpuscular Volume 97.6 fL (80-100) Mean Corpuscular Hemoglobin 32.3 pg (25-34) Mean Corpuscular Hemoglobin Concent 33.1 g/dl (32-36) Platelet Count 149 K/uL (130-400) Mean Platelet Volume 12.0 fL (7.4-10.4) Neutrophils (%) (Auto) 86.6 % Lymphocytes (%) (Auto) 8.2 % Monocytes (%) (Auto) 4.1 % Eosinophils (%) (Auto) 0.1 % Basophils (%) (Auto) 0.1 % Neutrophils # (Auto) 9.34 K/uL (1.4-6.5) Lymphocytes # (Auto) 0.88 K/uL (1.2-3.4) Monocytes # (Auto) 0.44 K/uL (0.11-0.59) Eosinophils # (Auto) 0.01 K/uL (0-0.5) Basophils # (Auto) 0.01 K/uL (0-0.2) RDW Standard Deviation 56.3 fL (36.4-46.3) RDW Coefficient of Variation 15.8 % (11.5-14.5) Immature Granulocyte % (Auto) 0.9 % Immature Granulocyte # (Auto) 0.10 K/uL (0.00-0.02) Prothrombin Time 11.4 SECONDS (9.0-12.0) Prothromb Time International Ratio 1.1 (0.9-1.1) Activated Partial Thromboplast Time 24.0 SECONDS (21.0-31.0) Partial Thromboplastin Ratio 0.9 Anion Gap 20.0 mmol/L (3-11) Est Creatinine Clear Calc Drug Dose 5.2 ml/min Estimated GFR () 4.0 Estimated GFR (Non- 3.5 BUN/Creatinine Ratio 10.7 (10-20) Calcium Level 8.9 mg/dl (8.5-10.1) Bedside Troponin I 0.050 ng/ml (0-0.045) CH-Gej-U-Type Natriuretic Peptide 20085 pg/ml (0-900) Laboratory results as reviewed by me. Medications Administered Medications (Trade) Dose Ordered Sig/Tyesha Route Start Time Stop Time Status Last Admin Dose Admin Nitroglycerin (Nitroglycerin 2% Oint) 0.5 inch NOW ONCE EXT 11/14/16 12:00 11/14/16 12:01 DC 11/14/16 11:56 0.5 INCH ECG Indication: SOB/dyspnea Rate (beats per minute): 70 Rhythm: other (paced rhythm) Findings: no ectopy, other (QRS 182 ms) Comparison ECG Date: 08 November 2016. Change: no significant change ED Course 1050: The patient was evaluated in room B7. A complete history and physical exam was performed. 1144: Discussed the test results with her. 1149: Discussed the case with Jolanta Swift PA-C, [facility] Hospitalist. The patient will be evaluated. 1200: Nitroglycerin 2% 0.5 inch EXT. Medical Decision This is a 71-year-old female who presents with shortness breath and back pain. Differential diagnosis includes spinal stenosis, lumbar disc disease, radiculopathy, CHF, pneumonia. I did perform a limited focused review of portions of the patient's old chart on the electronic medical record. The patient was admitted on November 08 for shortness of breath, which was thought to be multifactorial from acute on chronic CHF and bronchitis. She had elevated troponin which was thought to be from ESRD. She had a repeat echocardiogram which showed reduced LV systolic function compared to June 2016. I did evaluate the patient as noted above. The patient is presenting with exertional dyspnea. She states that she could not get from her apartment door to the elevator without stopping 3 times. This was partly also due to her chronic back pain. IV access was established. The patient was placed on a continuous monitoring manager. I did order and personally review the patient's 12- lead EKG and chest x-ray as described above. Her chest x-ray demonstrates congestive changes. She was given nitro paste. I did order and review the patient's blood work as noted in the electronic medical record. She has no elevated creatinine and hyperkalemia likely because she did not have her dialysis today. She will require dialysis. I did reassess the patient. She states that she does not feel well enough for discharge as she becomes severely short of breath with any mild exertion. I therefore discussed the case with the complex case manager and hospitalist for further evaluation in the hospital. Consults Time Called: [id number] Consulting Physician: Jolanta Swift PA-C, [facility] Hospitalist. Returned Call: [phone]: Discussed the case with Jolanta Swift PA-C, [facility] Hospitalist. The patient will be evaluated. Impression Primary Impression: AGUILERA (dyspnea on exertion) Additional Impressions: CHF (congestive heart failure) ESRD (end stage renal disease) Hyperkalemia Elevated troponin Chronic back pain Scribe Attestation The scribe's documentation has been prepared under my direct and personally reviewed by me in its entirety. I confirm that the note above accurately reflects all work, treatment, procedures, and medical decision making performed by me. Departure Information Dispostion Being Evaluated By Hospitalist Referrals Princess Grant M.D. (PCP) Patient Instructions A Signature Page, My [facility] Problem Qualifiers Additional Impressions: CHF (congestive heart failure) Congestive heart failure type: systolic Congestive heart failure chronicity: acute on chronic Qualified Codes: I50.23 - Acute on chronic systolic ( congestive) heart failure Chronic back pain Back pain location: low back pain Back pain laterality: unspecified Sciatica presence: with sciatica Sciatica laterality: sciatica of right side Qualified Codes: M54.41 - Lumbago with sciatica, right side; G89.29 - Other chronic pain
--- NOTE | 2016-11-14 13:04 | History and Physical ---
History & Physical Date & Time of Service: Nov 14, 2016 at 12:41 Chief Complaint: Weakness/ Shortness Of Breath Primary Care Physician: Princess Grant M.D. History of Present Illness Source: patient, family, clinic records, hospital records Patient seen and examined. 71 year old female with PMHx of ESRD on dialysis, Systolic CHF/Pulmonary HTN, IDDM, PAF, S/p Pacemaker, HTN and other problems listed below presents to the ED complaining of SOB prior to arrival. Patient was recently admitted form 11/08-11/11 with similar symptoms thought to be multifactorial secondary to CHF, ESRD and possible acute bronchitis. She was discharged home on azithromycin and prednisone. Patient reports she was feeling okay until this morning. This morning was the first time she tried to walk extended distances. She reports she became SOB walking to the elevator to go to dialysis. She states she had to stop 3 times to catch her breath so she came to the ED instead of dialysis. She reports dry cough, and generalized weakness. She states her abdomen feels bloated. She states she has had about 1 pound of weight gain. She denies fevers chills, chest pain, palpitations, nausea, vomiting, diarrhea, dysuria, calf pain. She received dialysis Sunday and follows with a service station attendant in [place]. She did not go to dialysis today. She has been wearing 3L of oxygen continuously at home. In the ED VS are stable, CXR shows congestion, K+ is 5.5, Troponin is 0.05. She will be admitted for further workup and treatment. Past Medical/Surgical History Medical Problems: (1) Atrial fibrillation Status: Chronic (2) Cardiomegaly Status: Chronic (3) Diabetic neuropathy Status: Chronic (4) DM2 (diabetes mellitus, type 2) Status: Chronic (5) End stage renal disease Status: Chronic (6) AC (generalized anxiety disorder) Status: Chronic (7) GERD (gastroesophageal reflux disease) Status: Chronic (8) Healed or old pulmonary embolism Status: Chronic (9) Heart failure Status: Chronic (10) HLD (hyperlipidemia) Status: Chronic (11) HTN (hypertension) Status: Chronic (12) Melanoma Status: Chronic (13) Obesity hypoventilation syndrome Status: Chronic (14) [place] (obstructive sleep apnea) Status: Chronic (15) Pacemaker Status: Chronic (16) Pulmonary HTN Status: Chronic (17) TIA (transient ischemic attack) Status: Chronic Surgical Problems: (1) H/O total hysterectomy Status: Chronic (2) S/P cholecystectomy Status: Chronic (3) S/P IVC filter Status: Chronic Family History Diabetes mellitus FH: heart disease FATHER MOTHER Kidney disease Social History Smoking Status: Former Smoker Alcohol Use: none Drug Use: none Housing status: lives alone Occupational Status: retired Immunizations History of Influenza Vaccine: Yes History of Tetanus Vaccine?: Yes History of Pneumococcal: Yes History of Hepatitis B Vaccine: No Allergies Coded Allergies: Iodinated Diagnostic Agents (Verified Allergy, Mild, "Contrast Media" -- unknown rxn, 11/14/16) Adhesives (Verified Allergy, Unknown, "Tape" -- unknown rxn, 11/14/16) Morphine (Unverified Allergy, Unknown, UNKNOWN, 11/14/16) Warfarin (Unverified Allergy, Unknown, HYPERSENSITIVITY/BLEEDING, 11/14/16) Tomato (Verified Adverse Reaction, Intermediate, GI SYMPTOMS, 11/14/16) Tomato products cause diarrhea. Home Medications Scheduled Allopurinol (Zyloprim), 100 MG PO QAM Amiodarone Hcl (Cordarone), 400 MG PO DAILY Aspirin (Aspirin Ec), 1 TAB PO QAM Atorvastatin (Lipitor), 40 MG PO DAILY Azithromycin (Azithromycin), 250 MG PO QAM Calcium Acetate (Phosphate Bin (Calcium Acetate), 1 TAB PO TIDM Esomeprazole Magnesium (Nexium), 40 MG PO DAILY Gabapentin (Neurontin), 100 MG PO BID Insulin Glargine (Lantus Solostar Pen), 10 UNIT SQ HS Insulin Lispro (Human) (Humalog Kwikpen), 5 UNITS SC AC Multiple Vitamin (Multivitamin), 1 TAB PO QAM Nitroglycerin (Nitrostat), 0.4 MG UT PRN Prednisone Tab (Prednisone), 10 MG PO UD Sertraline Hcl (Zoloft), 100 MG PO BID Scheduled PRN Acetaminophen (Tylenol Extra Strength), 1 TAB PO Q4HPRN PRN for Pain Clonazepam (Klonopin), 0.25 MG PO HS PRN for Anxiety Guaifenesin (Organ-I Nr), 200 MG PO Q8H PRN for Cough Hydrocodone/Acetaminophen 5MG/325MG ([place] 5MG/325MG), 1 TABLET PO Q12 PRN for Pain Ipratropium [place] (Ipratropium [place]), 1 VIAL NEB QID PRN for SOB/Wheezing Levalbuterol (Levalbuterol HCl), 0.63 MG INH QID PRN for SOB/Wheezing Lorazepam (Ativan), 0.5 MG PO TID PRN for Anxiety/Agitation Oxygen (Oxygen), 2 LITERS NA HS PRN for AND WITH EXERTION Ranitidine (Zantac), 150 MG PO BID PRN for Heartburn Review of Systems Constitutional: + weakness, No chills, No fever Eyes: No worsening of vision ENT: No nasal symptoms Respiratory: + cough, + dyspnea on exertion, + shortness of breath, No dyspnea at rest Cardiovascular: No chest pain, No edema, No palpitations Abdomen: No constipation, No diarrhea, No nausea, No pain, No vomiting Musculoskeletal: + joint pain (back, chronic ), No calf pain, No swelling Genitourinary - Female: No dysuria Neurologic: No numbness/tingling, No vertigo Psychiatric: No anxiety Endocrine: No fatigue Hematologic / Lymphatic: No abnormal bleeding/bruising, No clotting problems Integumentary: No itch, No rash Allergic / Immunologic: No environmental allergies Physical Exam Vital Signs Date Time Temp Pulse Resp B/P Pulse Ox O2 Delivery O2 Flow Rate FiO2 11/14/16 11:28 70 20 128/77 98 Nasal Cannula 3.0 11/14/16 10:50 98 Nasal Cannula 3.0 11/14/16 10:50 93 Room Air 11/14/16 10:43 70 11/14/16 10:43 37.1 70 20 121/56 95 Nasal Cannula 3.0 General Appearance: + pertinent finding (Pleasant WD/WN 71 year old female lying in bed in NAD with family at bedside ) Head: normocephalic, atraumatic Eyes: PERRL, EOMI, sclerae normal ENT: hearing grossly normal, pharynx normal Neck: supple, no JVD, trachea midline Respiratory/Chest: chest non-tender, no respiratory distress, no accessory muscle use, + crackles (BL bases, otherwise CTA ) Cardiovascular: regular rate, rhythm, no edema, no gallop, no JVD, no murmur, normal peripheral pulses Abdomen/GI: normal bowel sounds, non tender, soft, no organomegaly, + distended Back: normal inspection, no muscle spasm Extremities/Musculoskelatal: no calf tenderness, normal capillary refill, + pedal edema (trace) Neurologic/Psych: alert, oriented x 3, + pertinent finding (no motor or sensory deficits noted on gross exam ) Skin: normal color, warm/dry, no rash Lymphatic: no adenopathy Diagnostics Laboratory Results Results Past 24 Hours Test 11/14/16 10:05 11/14/16 11:14 Range/Units White Blood Count 10.78 4.8-10.8 K/uL Red Blood Count 3.28 4.2-5.4 M/uL Hemoglobin 10.6 12.0-16.0 g/dL Hematocrit 32.0 37-47 % Mean Corpuscular Volume 97.6 80-100 fL Mean Corpuscular Hemoglobin 32.3 25-34 pg Mean Corpuscular Hemoglobin Concent 33.1 32-36 g/dl Platelet Count 149 130-400 K/uL Mean Platelet Volume 12.0 7.4-10.4 fL Neutrophils (%) (Auto) 86.6 % Lymphocytes (%) (Auto) 8.2 % Monocytes (%) (Auto) 4.1 % Eosinophils (%) (Auto) 0.1 % Basophils (%) (Auto) 0.1 % Neutrophils # (Auto) 9.34 1.4-6.5 K/uL Lymphocytes # (Auto) 0.88 1.2-3.4 K/uL Monocytes # (Auto) 0.44 0.11-0.59 K/uL Eosinophils # (Auto) 0.01 0-0.5 K/uL Basophils # (Auto) 0.01 0-0.2 K/uL RDW Standard Deviation 56.3 36.4-46.3 fL RDW Coefficient of Variation 15.8 11.5-14.5 % Immature Granulocyte % (Auto) 0.9 % Immature Granulocyte # (Auto) 0.10 0.00-0.02 K/uL Prothrombin Time 11.4 9.0-12.0 SECONDS Prothromb Time International Ratio 1.1 0.9-1.1 Activated Partial Thromboplast Time 24.0 21.0-31.0 SECONDS Partial Thromboplastin Ratio 0.9 Sodium Level 137 136-145 mmol/L Potassium Level 5.5 3.5-5.1 mmol/L Chloride Level 96 98-107 mmol/L Carbon Dioxide Level 21 21-32 mmol/L Anion Gap 20.0 3-11 mmol/L Blood Urea Nitrogen 107 7-18 mg/dl Creatinine 10.00 0.60-1.20 mg/dl Est Creatinine Clear Calc Drug Dose 5.2 ml/min Estimated GFR () 4.0 Estimated GFR (Non- 3.5 BUN/Creatinine Ratio 10.7 10-20 Random Glucose 233 70-99 mg/dl Calcium Level 8.9 8.5-10.1 mg/dl Bedside Troponin I 0.050 0-0.045 ng/ml OR-Rhg-M-Type Natriuretic Peptide 96763 0-900 pg/ml Diagnostic Radiology CXR Per radiologist read: IMPRESSION: 1. Cardiomegaly and cardiac pacemaker with evidence of congestive failure. 2. No airspace consolidation or large pleural effusion is seen. EKG 70 BPM, AV paced QTc 520 Impression Assessment and Plan 71 year old female with CHF, ESRD discharged on 11/11 after treatment for SOB possible acute bronchitis presents to the ED complaining of dyspnea on exertion SHORTNESS OF BREATH -admit to tele -Likely multifactorial with CHF, ESRD and acute bronchitis -CXR shows CHF, abdomen bloated, missed dialysis today -Fluid management via dialysis, nephrology consulted -Finish course of azithromycin and prednisone -repeat CXR tomorrow after dialysis -continue supplemental oxygen ELEVATED TROPONIN -0.05, no chest pain, EKG nonischemic -elevation possibly secondary to ESRD -troponin improved from previous admission will serial q6H x 2 -Was seen by Cardiology last admission no further cardiac testing required at that time -monitor in tele HYPERKALEMIA -5.5 -nephrology aware -dialysis today -management per nephrology ESRD ON HD -had dialysis Sunday, , Sunday -Follows with Nephrology in [place] -missed dialysis today. Dr. Cordero consulted, input appreciated CHRONIC SYSTOLIC CHF/PULMONARY HTN -Echo on previous admission EF 45-50%, Grade 2 diastolic dysfunction, pulmonary hypertension -fluid restriction -dialysis per nephrology IDDM -A1c 6.6 -continue Lantus -SSI coverage -BSG AC HS PAROXYSMAL AFIB -currently paced rhythm -continue Amiodarone SICK SINUS SYNDROME -s/p pacemaker H/O DVT/PE -s/P IVC filter -not on anticoagulation secondary to history of pericardial hemorrhage SLEEP APNEA OBESITY HYPOVENTILATION -continue Oxygen -BIPAP HS HTN -BP stable -monitor in tele HISTORY OF TIA -continue Aspirin, Statin DEPRESSION -continue Zoloft GERD -Continue Zantac, PPI DVT PROPHYLAXIS: SCDs RE: history of hemorrhagic pericardial effusion CODE STATUS: FULL CODE DISPO:In my clinical judgment this beneficiary meets acute admission criteria, established by [facility], that includes being hospitalized through two midnights. Discharge planning eval Patient seen in collaboration with Dr. Banerjee ATTENDING NOTE Patient seen & examined at bedside. Patient has multiple medical conditions including ESRD. Has developed gradually worsening SOB and was due for dialysis today. Recently treated for Bronchitis. Clinically as well work up shows Pulmonary Congestion/Pulmonary edema. Patient has chronically elevated Troponin. Patient is being admitted to Telemetry. Requested nephrology to coordinate dialysis. Reviewed records and all the medications. Patient is FULL CODE. DVT Prophylaxis: SCDs. Patient will be followed by Dr. Cabrera. Maciel Banerjee MD Level of Care Telemetry Resuscitation Status FULL RESUSCITATION VTE Prophylaxis VTE Risk Assessment Done? Y/N: Yes Risk Level: High Given or contraindicated: SCD's
[2016-11-14] MEDS: INSULIN ASPART 100 UNITS/ML 3 ML PEN SC SCH ×2 (15:53→21:26)
--- NOTE | 2016-11-14 18:05 | Nephrology Consultation ---
Nephrology Consultation Date of Consultation: Nov 14, 2016. Attending Physician: Dr Cabrera Requesting Physician: Dr Banerjee Reason for Consultation: ESRD History of Present Illness 71 year old female w/ ESRD on TRSat HD via AVF, HF, a fib, DM, pulm HTN on 02NC 3L sent from her facility today back to [facility], [place] after developing worsening generalized weakness, cough and new exertional dyspnea. She passed out this am in the lobby at her facility while walking; no limb twitching or bowel/bladder incontinence. an aide was with her and sat her quickly in a chair; did not hit head. She was admitted here from 11/08-11/11 for bronchitis and apparnetly presented in a similar way last admission as well; she was d/c on prednisone and azithromycin. Of note prior to recent admission had not used 02NC 28/05 but only hs. She dialyzes normally in [place] with Drs. Jacques/Alonzo on TRSat. Other PMH includes TIA, [place] on hs bipap, melanoma, HL, chronic HF, PE s/p ivc filter. Reportedly prior to starting dialysis today pt had mild respiratory distress, paroxysmal coughing. Past Medical/Surgical History Medical Problems: (1) Altered mental status Status: Acute (2) Bronchitis Status: Acute (3) CHF (congestive heart failure) Status: Acute (4) Chronic back pain Status: Acute (5) AGUILERA (dyspnea on exertion) Status: Acute (6) Elevated troponin Status: Acute (7) Exertional chest pain Status: Acute (8) Falls Status: Acute (9) Heat exhaustion Status: Acute (10) Nausea Status: Acute (11) Orthostatic hypotension Status: Acute (12) Shortness of breath Status: Acute (13) Upper respiratory infection Status: Acute Family History Diabetes mellitus FH: heart disease FATHER MOTHER Kidney disease Social History Smoking Status: Former Smoker Drug Use: none Occupation Status: retired Allergies Coded Allergies: Iodinated Diagnostic Agents (Verified Allergy, Mild, "Contrast Media" -- unknown rxn, 11/14/16) Adhesives (Verified Allergy, Unknown, "Tape" -- unknown rxn, 11/14/16) Morphine (Unverified Allergy, Unknown, UNKNOWN, 11/14/16) Warfarin (Unverified Allergy, Unknown, HYPERSENSITIVITY/BLEEDING, 11/14/16) Tomato (Verified Adverse Reaction, Intermediate, GI SYMPTOMS, 11/14/16) Tomato products cause diarrhea. Medications Current Inpatient Medications Medications (Trade) Dose Ordered Sig/Tyesha Route Start Time Stop Time Status Last Admin Dose Admin Acetaminophen (Tylenol Tab) 650 mg Q4H PRN PO 11/14/16 12:30 12/14/16 12:29 Nitroglycerin (Nitrostat Tab) 0.4 mg UD PRN SL 11/14/16 12:30 12/14/16 12:29 Insulin Aspart (novoLOG ASPART) SLIDING SCALE If C... ACHS SC 11/14/16 16:30 12/14/16 16:29 11/14/16 15:53 5 UNITS Glucose (Glucose 40% Gel) 15-30 GRAMS 15 GRAMS... UD PRN PO 11/14/16 12:30 12/14/16 12:29 Glucose (Glucose Chew Tab) 4-8 Tablets 4 Tabl... UD PRN PO 11/14/16 12:30 12/14/16 12:29 Dextrose (Dextrose 50% 50ML Syringe) 25-50ML OF 50% DW IV FOR... UD PRN IV 11/14/16 12:30 12/14/16 12:29 Glucagon (Glucagon Inj) 1 mg UD PRN SQ 11/14/16 12:30 12/14/16 12:29 Allopurinol (Zyloprim Tab) 100 mg QAM PO 11/15/16 09:00 12/15/16 08:59 Amiodarone HCl (Cordarone Tab) 400 mg DAILY PO 11/15/16 09:00 12/15/16 08:59 Aspirin (Ecotrin Tab) 81 mg QAM PO 11/15/16 09:00 12/15/16 08:59 Atorvastatin Calcium (Lipitor Tab) 40 mg DAILY PO 11/15/16 09:00 12/15/16 08:59 Azithromycin (Zithromax Tab) 250 mg QAM PO 11/15/16 09:00 11/16/16 09:01 Clonazepam (Klonopin Tab) 0.25 mg HS PRN PO 11/14/16 12:30 12/14/16 12:29 Gabapentin (Neurontin Cap) 100 mg BID PO 11/14/16 21:00 12/14/16 20:59 Guaifenesin (Organidin Nr Tab) 200 mg Q8H PRN PO 11/14/16 12:30 12/14/16 12:29 Acetaminophen/ Hydrocodone Bitart ([place] 5/325 Tab) 1 tab Q12 PRN PO 11/14/16 12:30 11/28/16 12:29 Insulin Glargine (Lantus Solostar Pen) 10 unit HS SQ 11/14/16 21:00 12/14/16 20:59 Ipratropium Brave (Atrovent 0.02% 0.5MG/2.5ML Neb) 0.5 mg QID PRN INH 11/14/16 12:30 12/14/16 12:29 Levalbuterol (Xopenex 0.63 Mg/ 3 Ml Neb) 0.63 mg QID PRN INH 11/14/16 12:30 12/14/16 12:29 Lorazepam (Ativan Tab) 0.5 mg TID PRN PO 11/14/16 12:30 12/14/16 12:29 Multivitamins (Multivitamin Tab) 1 tab QAM PO 11/15/16 09:00 12/15/16 08:59 Prednisone (PredniSONE TAB) 30 mg Taper DAILY PO 11/15/16 09:00 11/23/16 08:59 Ranitidine HCl (zANTac TAB) 150 mg BID PRN PO 11/14/16 12:30 12/14/16 12:29 Sertraline HCl (Zoloft Tab) 100 mg BID PO 11/14/16 21:00 12/14/16 20:59 Calcium Acetate (Phoslo Cap) 667 mg TIDM PO 11/14/16 17:00 12/14/16 17:59 Pantoprazole Sodium (Protonix Tab) 40 mg DAILY PO 11/15/16 09:00 12/15/16 08:59 Home Meds and Scripts Medications Dose Route/Sig Max Daily Dose Days Date Category Dose Instructions Levalbuterol HCl (Levalbuterol) 0.63 Mg/3 Ml Nebu 0.63 Mg INH QID PRN 11/14/16 Reported Ipratropium Brave 0.5 Mg/2.5 Ml Nebu 1 Vial NEB QID PRN 30 11/14/16 Reported Kerens 5MG/325MG (Acetaminophen/Hydrocodone Bitart) Tab 1 Tablet PO Q12 PRN 5 11/11/16 Rx MODERATE, SEVERE. Prednisone 10 Mg Tab 10 Mg PO UD 10 11/11/16 Rx take 4 tabs for 2 days, then 3 tabs for 3 days, then 2 tabs for 3 days, then 1 tab for 2 days, and stop. Organ-I Nr (Guaifenesin) 200 Mg Tab 200 Mg PO Q8H PRN 10 11/11/16 Rx Azithromycin 250 Mg Tab 250 Mg PO QAM 4 11/11/16 Rx Humalog Kwikpen (Insulin Lispro (Human)) 100 Unit/Ml Inj 5 Units SC AC 05/27/16 Rx Cordarone (Amiodarone Hcl) 200 Mg Tab 400 Mg PO DAILY 05/23/16 Reported Zantac (Ranitidine HCl) 150 Mg Tab 150 Mg PO BID PRN 04/26/16 Reported Oxygen Gas 2 Liters NA HS PRN 08/18/15 Reported Neurontin (Gabapentin) 100 Mg Cap 100 Mg PO BID 08/18/15 Reported Nexium (Esomeprazole Magnesium) 40 Mg Cap 40 Mg PO DAILY 08/18/15 Reported Lantus Solostar Pen (Insulin Glargine) 100 Unit/ Inj 10 Unit SQ HS 08/18/15 Reported Calcium Acetate (Calcium Acetate (Phosphate Bin) 667 Mg Tab 1 Tab PO TIDM 08/18/15 Reported Lipitor (Atorvastatin) 40 Mg Tab 40 Mg PO DAILY 08/18/15 Reported Klonopin (Clonazepam) 0.5 Mg Tab 0.25 Mg PO HS PRN 08/18/15 Reported Multivitamin (Multiple Vitamin) 1 Tab Tab 1 Tab PO QAM 01/26/15 Reported Tylenol Extra Strength (Acetaminophen) 500 Mg Tab 1 Tab PO Q4HPRN PRN 01/26/15 Reported Nitrostat (Nitroglycerin) 0.4 Mg Sub 0.4 Mg UT PRN 01/26/15 Reported Ativan (Lorazepam) 0.5 Mg Tab 0.5 Mg PO TID PRN 01/26/15 Reported Aspirin Ec (Aspirin) 81 Mg Tab 1 Tab PO QAM 01/26/15 Reported Zyloprim (Allopurinol) 100 Mg Tab 100 Mg PO QAM 01/26/15 Reported Zoloft (Sertraline Hcl) 100 Mg Tab 100 Mg PO BID 01/26/15 Reported Review of Systems Constitutional: + fatigue, + weakness, No fever Eyes: No worsening of vision ENT: No hearing loss Respiratory: + cough, + dyspnea at rest, + dyspnea on exertion, + shortness of breath Cardiac: + edema (slight), + palpitations, No chest pain Abdomen: + problem reported (distension), No constipation, No diarrhea, No nausea, No pain, No vomiting Musculoskeletal: No joint pain, No muscle pain Female : No dysuria, No hematuria Neuro: + balance problems, + weakness, No memory loss Psych: No anxiety, No depression symptoms Heme: No abnormal bleeding/bruising Endo: + fatigue Skin: No rash Physical Exam Date Time Temp Pulse Resp B/P Pulse Ox O2 Delivery O2 Flow Rate FiO2 11/14/16 16:00 Nasal Cannula 3.0 11/14/16 14:00 36.6 70 18 151/77 Nasal Cannula 3.0 11/14/16 13:22 70 18 111/67 95 Nasal Cannula 3.0 11/14/16 12:48 69 11/14/16 12:46 70 18 135/93 98 Nasal Cannula 3.0 11/14/16 11:28 70 20 128/77 98 Nasal Cannula 3.0 11/14/16 10:50 98 Nasal Cannula 3.0 11/14/16 10:50 93 Room Air 11/14/16 10:43 70 11/14/16 10:43 37.1 70 20 121/56 95 Nasal Cannula 3.0 General Appearance: WD/WN, no apparent distress, + pertinent finding (on 02 2.5 L NC) Eyes: EOMI ENT: hearing grossly normal Neck: supple Respiratory/Chest: + decreased breath sounds Cardiovascular: regular rate, rhythm, + pertinent finding (trace ble edema) Abdomen: normal bowel sounds, non tender, soft, + pertinent finding (no arnold) Extremities: + pertinent finding (L AVF + t/b, trace edema) Neurologic/Psych: alert, normal mood/affect, oriented x 3 Skin: no jaundice, warm/dry, no rash Diagnostics Last 24 Hours Test 11/14/16 10:05 11/14/16 11:14 11/14/16 15:11 11/14/16 17:00 White Blood Count 10.78 K/uL Red Blood Count 3.28 M/uL Hemoglobin 10.6 g/dL Hematocrit 32.0 % Mean Corpuscular Volume 97.6 fL Mean Corpuscular Hemoglobin 32.3 pg Mean Corpuscular Hemoglobin Concent 33.1 g/dl Platelet Count 149 K/uL Mean Platelet Volume 12.0 fL Neutrophils (%) (Auto) 86.6 % Lymphocytes (%) (Auto) 8.2 % Monocytes (%) (Auto) 4.1 % Eosinophils (%) (Auto) 0.1 % Basophils (%) (Auto) 0.1 % Neutrophils # (Auto) 9.34 K/uL Lymphocytes # (Auto) 0.88 K/uL Monocytes # (Auto) 0.44 K/uL Eosinophils # (Auto) 0.01 K/uL Basophils # (Auto) 0.01 K/uL RDW Standard Deviation 56.3 fL RDW Coefficient of Variation 15.8 % Immature Granulocyte % (Auto) 0.9 % Immature Granulocyte # (Auto) 0.10 K/uL Prothrombin Time 11.4 SECONDS Prothromb Time International Ratio 1.1 Activated Partial Thromboplast Time 24.0 SECONDS Partial Thromboplastin Ratio 0.9 Sodium Level 137 mmol/L Potassium Level 5.5 mmol/L Chloride Level 96 mmol/L Carbon Dioxide Level 21 mmol/L Anion Gap 20.0 mmol/L Blood Urea Nitrogen 107 mg/dl Creatinine 10.00 mg/dl Est Creatinine Clear Calc Drug Dose 5.2 ml/min Estimated GFR () 4.0 Estimated GFR (Non- 3.5 BUN/Creatinine Ratio 10.7 Random Glucose 233 mg/dl Calcium Level 8.9 mg/dl Bedside Troponin I 0.050 ng/ml UB-[id number]-A-Type Natriuretic Peptide 34666 pg/ml Bedside Glucose 213 mg/dl Creatine Kinase MB Ratio Diagnostic Radiology: cxr reviewedf>> ongoing volume overload Assessment & Plan 71 y/o F w/ ESRD on TRSat HD via AVF, w/ PAF, HF, plm HTN, sleep apnea, chronic hypoxic respiratory failure on 02NC 3L w/ recent admission for bronchitis comes back to [facility] [place] from facility after 11/11 d/c for evaluation/ mgt of volume overload, cough, exertional dyspnea ESRD w/ mild hyperkalemia -for dialysis today via avf on 2K bath -next hd tentatively on 11/16 or as clinical situation dictates -2K bath should normalize K Anemia of esrd -no procrit today but monitor for need HF and volume overload -UF as tolerated today> goal 3L Appreciate consult; will follow with you.
--- NOTE | 2016-11-14 18:35 | Dialysis Progress Note ---
Nephrology Dialysis Note Date of Service: Nov 14, 2016. Subjective breathing stable; cough improved; pt does not recall syncope; no n/v Objective Date Time Temp Pulse Resp B/P Pulse Ox O2 Delivery O2 Flow Rate FiO2 11/14/16 16:00 Nasal Cannula 3.0 11/14/16 14:00 36.6 70 18 151/77 Nasal Cannula 3.0 11/14/16 13:22 70 18 111/67 95 Nasal Cannula 3.0 11/14/16 12:48 69 11/14/16 12:46 70 18 135/93 98 Nasal Cannula 3.0 11/14/16 11:28 70 20 128/77 98 Nasal Cannula 3.0 11/14/16 10:50 98 Nasal Cannula 3.0 11/14/16 10:50 93 Room Air 11/14/16 10:43 70 11/14/16 10:43 37.1 70 20 121/56 95 Nasal Cannula 3.0 Physical Exam: General-on 02nc, oriented x 3 nad Eyes-eomi ENT-dry mm Neck-supple Lungs-diminished Heart-rrr Abdomen-distended; NT + BS Extremities-no c/c; trace BLE edema, avf LUE Neuro-carreon, fluent speech Current Inpatient Medications Medications (Trade) Dose Ordered Sig/Tyesha Route Start Time Stop Time Status Last Admin Dose Admin Acetaminophen (Tylenol Tab) 650 mg Q4H PRN PO 11/14/16 12:30 12/14/16 12:29 Nitroglycerin (Nitrostat Tab) 0.4 mg UD PRN SL 11/14/16 12:30 12/14/16 12:29 Insulin Aspart (novoLOG ASPART) SLIDING SCALE If C... ACHS SC 11/14/16 16:30 12/14/16 16:29 11/14/16 15:53 5 UNITS Glucose (Glucose 40% Gel) 15-30 GRAMS 15 GRAMS... UD PRN PO 11/14/16 12:30 12/14/16 12:29 Glucose (Glucose Chew Tab) 4-8 Tablets 4 Tabl... UD PRN PO 11/14/16 12:30 12/14/16 12:29 Dextrose (Dextrose 50% 50ML Syringe) 25-50ML OF 50% DW IV FOR... UD PRN IV 11/14/16 12:30 12/14/16 12:29 Glucagon (Glucagon Inj) 1 mg UD PRN SQ 11/14/16 12:30 12/14/16 12:29 Allopurinol (Zyloprim Tab) 100 mg QAM PO 11/15/16 09:00 12/15/16 08:59 Amiodarone HCl (Cordarone Tab) 400 mg DAILY PO 11/15/16 09:00 12/15/16 08:59 Aspirin (Ecotrin Tab) 81 mg QAM PO 11/15/16 09:00 12/15/16 08:59 Atorvastatin Calcium (Lipitor Tab) 40 mg DAILY PO 11/15/16 09:00 12/15/16 08:59 Azithromycin (Zithromax Tab) 250 mg QAM PO 11/15/16 09:00 11/16/16 09:01 Clonazepam (Klonopin Tab) 0.25 mg HS PRN PO 11/14/16 12:30 12/14/16 12:29 Gabapentin (Neurontin Cap) 100 mg BID PO 11/14/16 21:00 12/14/16 20:59 Guaifenesin (Organidin Nr Tab) 200 mg Q8H PRN PO 11/14/16 12:30 12/14/16 12:29 Acetaminophen/ Hydrocodone Bitart ([place] 5/325 Tab) 1 tab Q12 PRN PO 11/14/16 12:30 11/28/16 12:29 Insulin Glargine (Lantus Solostar Pen) 10 unit HS SQ 11/14/16 21:00 12/14/16 20:59 Ipratropium [place] (Atrovent 0.02% 0.5MG/2.5ML Neb) 0.5 mg QID PRN INH 11/14/16 12:30 12/14/16 12:29 Levalbuterol (Xopenex 0.63 Mg/ 3 Ml Neb) 0.63 mg QID PRN INH 11/14/16 12:30 12/14/16 12:29 Lorazepam (Ativan Tab) 0.5 mg TID PRN PO 11/14/16 12:30 12/14/16 12:29 Multivitamins (Multivitamin Tab) 1 tab QAM PO 11/15/16 09:00 12/15/16 08:59 Prednisone (PredniSONE TAB) 30 mg Taper DAILY PO 11/15/16 09:00 11/23/16 08:59 Ranitidine HCl (zANTac TAB) 150 mg BID PRN PO 11/14/16 12:30 12/14/16 12:29 Sertraline HCl (Zoloft Tab) 100 mg BID PO 11/14/16 21:00 12/14/16 20:59 Calcium Acetate (Phoslo Cap) 667 mg TIDM PO 11/14/16 17:00 12/14/16 17:59 Pantoprazole Sodium (Protonix Tab) 40 mg DAILY PO 11/15/16 09:00 12/15/16 08:59 Last 24 Hours Test 11/14/16 10:05 11/14/16 11:14 11/14/16 15:11 11/14/16 17:00 White Blood Count 10.78 K/uL Red Blood Count 3.28 M/uL Hemoglobin 10.6 g/dL Hematocrit 32.0 % Mean Corpuscular Volume 97.6 fL Mean Corpuscular Hemoglobin 32.3 pg Mean Corpuscular Hemoglobin Concent 33.1 g/dl Platelet Count 149 K/uL Mean Platelet Volume 12.0 fL Neutrophils (%) (Auto) 86.6 % Lymphocytes (%) (Auto) 8.2 % Monocytes (%) (Auto) 4.1 % Eosinophils (%) (Auto) 0.1 % Basophils (%) (Auto) 0.1 % Neutrophils # (Auto) 9.34 K/uL Lymphocytes # (Auto) 0.88 K/uL Monocytes # (Auto) 0.44 K/uL Eosinophils # (Auto) 0.01 K/uL Basophils # (Auto) 0.01 K/uL RDW Standard Deviation 56.3 fL RDW Coefficient of Variation 15.8 % Immature Granulocyte % (Auto) 0.9 % Immature Granulocyte # (Auto) 0.10 K/uL Prothrombin Time 11.4 SECONDS Prothromb Time International Ratio 1.1 Activated Partial Thromboplast Time 24.0 SECONDS Partial Thromboplastin Ratio 0.9 Sodium Level 137 mmol/L Potassium Level 5.5 mmol/L Chloride Level 96 mmol/L Carbon Dioxide Level 21 mmol/L Anion Gap 20.0 mmol/L Blood Urea Nitrogen 107 mg/dl Creatinine 10.00 mg/dl Est Creatinine Clear Calc Drug Dose 5.2 ml/min Estimated GFR () 4.0 Estimated GFR (Non- 3.5 BUN/Creatinine Ratio 10.7 Random Glucose 233 mg/dl Calcium Level 8.9 mg/dl Bedside Troponin I 0.050 ng/ml OT-Sdb-N-Type Natriuretic Peptide 15382 pg/ml Bedside Glucose 213 mg/dl Creatine Kinase MB Ratio Assessment & Plan 71 y/o F w/ ESRD on TRSat HD via AVF, w/ PAF, HF, plm HTN, sleep apnea, chronic hypoxic respiratory failure on 02NC 3L w/ recent admission for bronchitis comes back to [facility] from facility after / d/c for evaluation/ mgt of volume overload, cough, exertional dyspnea ESRD w/ mild hyperkalemia -for dialysis today via avf on 2K bath Anemia of esrd -no procrit today but monitor for need HF and volume overload -UF as tolerated today> goal 3L Appreciate consult; will follow with you.
[2016-11-14] MEDS ORDERED: INSULIN GLARGINE SOLOSTAR 100 UNITS/ML 3 ML PEN SQ SCH (21:00)
[2016-11-14] MEDS: CALCIUM ACETATE 667MG GELCAP PO SCH (21:17)
[2016-11-14] MEDS: GABAPENTIN 100 MG CAP PO SCH (21:18)
[2016-11-14] MEDS: SERTRALINE HCL 100 MG TAB PO SCH (21:18)
[2016-11-14] MEDS: GUAIFENESIN 200 MG TAB PO PRN (22:44)
[2016-11-14] MEDS: HYDROCODONE/ACETAMOPHEN 5/325MG TAB PO PRN (22:47)
[2016-11-14 23:19] LABS: CKMB/CK RATIO 2.9 (0-3.0)
[2016-11-15] VITALS (8 sets, daily range): BP systolic 119–165; BP diastolic 64–81; PULSE 69–73; TEMP 36.4–36.9; O2SAT 93–96
[2016-11-15 00:13] LABS: CKMB/CK RATIO 3.1 (0-3.0)
[2016-11-15] MEDS: ACETAMINOPHEN 325 MG TAB PO PRN (00:57)
[2016-11-15 08:25] LABS: HEMATOCRIT 32.1 % (37-47); MEAN CELL VOLUME 96.7 fL (80-100); MEAN CORPUSCULAR HEMOGLOBIN 31.6 pg (25-34); MEAN CORPUSCULAR HGB CONC 32.7 g/dl (32-36); PLATELET COUNT 121 K/uL (130-400); RED BLOOD COUNT 3.32 M/uL (4.2-5.4); WHITE BLOOD COUNT 7.15 K/uL (4.8-10.8)
[2016-11-15] MEDS: ATORVASTATIN 40 MG TAB PO SCH (08:41)
[2016-11-15] MEDS: ASPIRIN 81 MG ECTAB PO SCH (08:41)
[2016-11-15] MEDS: MULTIVITAMIN TAB PO SCH (08:41)
[2016-11-15] MEDS: GABAPENTIN 100 MG CAP PO SCH ×2 (08:41→21:00)
[2016-11-15] MEDS: SERTRALINE HCL 100 MG TAB PO SCH ×2 (08:41→21:00)
[2016-11-15] MEDS: CALCIUM ACETATE 667MG GELCAP PO SCH ×3 (08:41→17:10)
[2016-11-15] MEDS: PANTOprazole SOD 40 MG TAB PO SCH (08:41)
[2016-11-15] MEDS: AMIODARONE 200 MG TAB PO SCH (08:41)
[2016-11-15] MEDS: AZITHROMYCIN 250 MG TAB PO SCH (08:41)
[2016-11-15] MEDS: ALLOPURINOL 100 MG TAB PO SCH (08:42)
--- NOTE | 2016-11-15 08:43 | Clinical Documentation Query ---
CLINICAL DOCUMENTATION QUERY 71 year old female with a history of CHF who presents to the Emergency Room via ambulance with complaints of intermittent shortness of breath In your clinical opinion is this patient being managed for: (x ) Acute on chronic systolic CHF 2/2 missed dialysis treated with same. ( ) Other explanation of clinical findings (Please Explain) ( ) Unable to determine (Please Define) ( ) Need to Discuss ( ) Not Agree The medical record reflects the following clinical findings, treatment, and risk factors. Clinical Indicators: CXR shows CHF, abdomen bloated, missed dialysis today. + crackles BL bases. Treatment: Dialysis Risk Factors: Age, ESRD, Chronic systolic chf, and HTN. Please clarify and document your clinical opinion in the progress notes and discharge summary. Terms such as "probable", "suspected", "likely", "questionable", "possible", or "still to be ruled out" are acceptable. IF IN AGREEMENT, YOU MUST DOCUMENT ABOVE DIAGNOSTIC STATEMENT IN DAILY PROGRESS NOTES AND DISCHARGE SUMMARY. This document is not part of the patient's record. Thank You, Miguel Patel, RN [phone]
[2016-11-15] MEDS: INSULIN ASPART 100 UNITS/ML 3 ML PEN SC SCH ×4 (08:47→21:00)
[2016-11-15 09:14] LABS: BUN/CREATININE RATIO 7.2 (10-20); CALCIUM 8.6 mg/dl (8.5-10.1); CREATININE 5.6 mg/dl (0.60-1.20); MAGNESIUM 2.3 mg/dl (1.8-2.4); POTASSIUM 4.2 mmol/L (3.5-5.1)
--- NOTE | 2016-11-15 16:17 | DIAGNOSTIC IMAGING REPORT ---
CHEST 2 VIEWS ROUTINE CLINICAL HISTORY: Follow-up congestive heart failure. COMPARISON STUDY: Chest radiograph November 14, 2016. FINDINGS: A dual lead right subclavian pacemaker is in place. There is no pneumothorax. No pleural effusion is present. Linear left midlung opacity suggestive atelectasis. There is hazy right lower lung opacity. There is no evidence for overt pulmonary edema. IMPRESSION: 1. No radiographic evidence of overt pulmonary edema. 2. Mild hazy right lower lung opacity. 3. Stable cardiomegaly. Electronically signed by: Osmel Calvert M.D. 11/15/2016 4:15 PM Dictated Date/Time: 11/15/2016 4:14 PM
--- NOTE | 2016-11-15 17:51 | Progress Note ---
Internal Med Progress Note Date of Service: Nov 15, 2016. Provider Documentation: SUBJECTIVE: feels much better no complain of SOB , no chest heaviness OBJECTIVE: Vital Signs-as noted below Exam: General Appearance: +Pleasant , no apparent distress Head: normocephalic, atraumatic Eyes: PERRL, EOMI, sclerae normal ENT: hearing grossly normal, pharynx normal Neck: supple, no JVD, trachea midline Respiratory/Chest: chest non-tender, no respiratory distress, + crackles at base Cardiovascular: regular rate, rhythm, no edema, no gallop, no JVD, no murmur, normal peripheral pulses Abdomen/GI: normal bowel sounds, non tender, soft, no organomegaly, Back: normal inspection, no muscle spasm Extremities/Musculoskelatal: no calf tenderness, normal capillary refill, + 1 pedal edema Neurologic/Psych: alert, oriented x 3, no focal neurological deficit Lab data as noted below. ASSESSMENT & PLAN: SHORTNESS OF BREATH -improved after Dialysis -Likely multifactorial with CHF, ESRD and acute bronchitis -CXR shows pulmonary congestion missed dialysis today nephrology consulted appreciate input -s/p dialysis ACUTE ON CHRONIC CHF /SYSTOLIC DYSFUNCTION ; due to missed dialysis , vol overload improved after dialysis cont to monitor vol status -repeat Cxray today ; post dialysis IMPRESSION: 1. No radiographic evidence of overt pulmonary edema. 2. Mild hazy right lower lung opacity. 3. Stable cardiomegaly. ELEVATED TROPONIN -0.05, no chest pain, EKG nonischemic -elevation possibly secondary to ESRD /decompensated CHF -cardiac strain -troponin improved from previous admission follow serial trend HYPERKALEMIA -improved after dialysis -low K /renal diet follow PRP - nephrology following ESRD ON HD -on schedule dialysis Sunday, , Sunday -Follows with Nephrology in [place] - CHRONIC SYSTOLIC CHF/PULMONARY HTN -Echo on previous admission EF 45-50%, Grade 2 diastolic dysfunction, pulmonary hypertension presents with vol overload /decompensated CHF due to missed dialysis cont dialysis as per Nephrology monitor vol status TYPE 2 DM on insulin -A1c 6.6 -continue Lantus -SSI coverage -BSG AC HS PAROXYSMAL AFIB -currently paced rhythm -continue Amiodarone --not on anticoagulation secondary to history of pericardial hemorrhage SICK SINUS SYNDROME -s/p pacemaker H/O DVT/PE -s/P IVC filter -not on anticoagulation secondary to history of pericardial hemorrhage SLEEP APNEA OBESITY HYPOVENTILATION -continue Oxygen -BIPAP HS HTN -BP stable - HISTORY OF TIA -continue Aspirin, Statin DEPRESSION -continue Zoloft GERD -Continue Zantac, PPI DVT PROPHYLAXIS: SCDs RE: history of hemorrhagic pericardial effusion CODE STATUS: FULL CODE DISPOSITION to home when medically stable Vital Signs: Date Time Temp Pulse Resp B/P Pulse Ox O2 Delivery O2 Flow Rate FiO2 11/15/16 19:47 36.5 71 18 151/75 93 Nasal Cannula 2.0 11/15/16 15:27 36.8 69 18 164/81 93 2.0 11/15/16 12:00 Nasal Cannula 2.0 11/15/16 11:27 36.9 69 18 126/75 96 Nasal Cannula 2.0 11/15/16 07:40 Nasal Cannula 2.0 11/15/16 07:00 36.6 71 20 119/69 96 Nasal Cannula 2.0 11/15/16 04:00 Nasal Cannula 2.0 11/15/16 03:58 36.7 69 20 135/64 96 Nasal Cannula 2.0 11/15/16 00:00 Nasal Cannula 2.0 11/14/16 23:35 37.0 70 20 127/75 96 Room Air 11/14/16 21:00 36.6 70 18 149/75 98 Nasal Cannula 3.0 11/14/16 21:00 Nasal Cannula 3.0 11/14/16 20:21 36.5 70 143/77 11/14/16 20:15 70 139/73 Lab Results: Results Past 24 Hours Test 11/14/16 21:06 11/14/16 22:20 11/14/16 23:37 11/15/16 07:23 Range/Units Bedside Glucose 93 88 70-90 mg/dl Total Creatine Kinase 56 55 26-192 U/L Creatine Kinase MB 1.6 1.7 0.5-3.6 ng/ml Creatine Kinase MB Ratio 2.9 3.1 0-3.0 Troponin I 0.095 0.082 0-0.045 ng/ml Test 11/15/16 07:40 11/15/16 11:39 11/15/16 16:20 Range/Units White Blood Count 7.15 4.8-10.8 K/uL Red Blood Count 3.32 4.2-5.4 M/uL Hemoglobin 10.5 12.0-16.0 g/dL Hematocrit 32.1 37-47 % Mean Corpuscular Volume 96.7 80-100 fL Mean Corpuscular Hemoglobin 31.6 25-34 pg Mean Corpuscular Hemoglobin Concent 32.7 32-36 g/dl RDW Standard Deviation 55.3 36.4-46.3 fL RDW Coefficient of Variation 16.0 11.5-14.5 % Platelet Count 121 130-400 K/uL Mean Platelet Volume 11.0 7.4-10.4 fL Sodium Level 141 136-145 mmol/L Potassium Level 4.2 3.5-5.1 mmol/L Chloride Level 100 98-107 mmol/L Carbon Dioxide Level 28 21-32 mmol/L Anion Gap 13.0 3-11 mmol/L Blood Urea Nitrogen 42 7-18 mg/dl Creatinine 5.60 0.60-1.20 mg/dl Est Creatinine Clear Calc Drug Dose 9.0 ml/min Estimated GFR () 8.1 Estimated GFR (Non- 7.0 BUN/Creatinine Ratio 7.2 10-20 Random Glucose 76 70-99 mg/dl Calcium Level 8.6 8.5-10.1 mg/dl Magnesium Level 2.3 1.8-2.4 mg/dl Bedside Glucose 211 252 70-90 mg/dl
[2016-11-15] MEDS ORDERED: PHARMACY GLYCEMIC MGMT CONSULT PRN (20:30)
--- NOTE | 2016-11-15 21:00 | Pharmacy Progress Note ---
Glycemic Control Intl Consult Date of Service Nov 15, 2016. Scope Glycemic Pharmacist consulted by Dr Cabrera on 11/15/16 for glycemic control and to write orders per [facility] inpatient glycemic control protocol Objective Weight (Kilograms): 90.400 Accuchecks BSG (last 24hrs): Test 11/14/16 21:06 11/15/16 07:23 11/15/16 07:40 11/15/16 11:39 Bedside Glucose 93 mg/dl (70-90) 88 mg/dl (70-90) 211 mg/dl (70-90) Random Glucose 76 mg/dl (70-99) Test 11/15/16 16:20 11/15/16 20:11 Bedside Glucose 252 mg/dl (70-90) 379 mg/dl (70-90) Laboratory Data (last 24hrs) Test 11/15/16 07:40 Anion Gap 13.0 mmol/L BUN/Creatinine Ratio 7.2 Blood Urea Nitrogen 42 mg/dl Creatinine 5.60 mg/dl Potassium Level 4.2 mmol/L Sodium Level 141 mmol/L White Blood Count 7.15 K/uL Recent Pertinent Medications Outpatient Anti-diabetic Regimen: * Lantus 10 units SQ HS * Humalog 5 units SQ AC * A1c = 6.4 % 05/24/16 The patient is currently receiving: * Basal insulin: Lantus 10 units every 24 hours given at bedtime * Correctional Insulin: Novolog Correction per scale ACHS Goal Range: Low 100 mg/dL - High 140 mg/dL Correction Factor: 30 mg/dL/unit * Prandial insulin: Per carb ratio of 1 unit per 15 grams CHO consumed Risk Factors for Insulin Resistance: * Steroids: Prednisone Daily * Infection * Diet Assessment & Plan ASSESSMENT: * 71yo T2DM female with presumed adequate outpatient control. A1c is outdated, will re-order per protocol. * Pt with steroid induced hyperglycemia secondary to prednisone daily. * BSGs 89-161-399-379mg/dl today * BSGs rise throughout the day after prednisone is given. * AM fasting BSG is in goal range this morning but that was w/o prednisone on board. Will increase Lantus dosing slightly per provider but will be sure to decrease when hyperglycemia improves. Should treat steroid induced hyperglycemia with aggressive CF/CR. Will order Lantus range based on BSG to prevent hypoglycemia. * Will tighten CF/CR for prednisone * ADA & AACE recommend a goal blood sugar range 140-180 mg/dl for the majority of critically ill & non-critically ill patients. However, more stringent targets may be selected in individual cases. Will utilize more stringent goal range of 110-140mg/dl for a presumed well controlled diabetic at baseline. PLAN FOR INPATIENT GLYCEMIC CONTROL: * INCREASE Basal insulin with LANTUS BID - dosing based on BSG * If BSG 120mg/dl or below --> do not administer Lantus * If BSG 121-179mg/dl --> Administer 10 units of Lantus * If BSG 180mg/dl or above --> Administer Lantus 15 units * TIGHTEN Correctional Insulin with NOVOLOG per scale ACHS or Q6hrs while NPO. Additional checks + coverage tonight at 0000 & 0400 for RTC hyperglycemia. * Goal Range: Low 110 mg/dL - High 140 mg/dL * Correction Factor: 25 mg/dL/unit * Nutritional / Prandial insulin per carb ratio of 1 unit per 9 grams CHO consumed * A1c with AM labs * Please note that the plan above was derived based on current level of insulin resistance and hospital stress. These recommendations are appropriate for inpatient admission only. Plan of care upon discharge will need to be reassessed to avoid potential outpatient hypo/hyperglycemia. Thank you.
[2016-11-15] MEDS: INSULIN GLARGINE SOLOSTAR 100 UNITS/ML 3 ML PEN SQ SCH (21:10)
[2016-11-15] MEDS: HYDROCODONE/ACETAMOPHEN 5/325MG TAB PO PRN (21:57)
[2016-11-15] MEDS ORDERED: GABAPENTIN 100 MG CAP PO STA (23:43)
[2016-11-16] VITALS (21 sets, daily range): BP systolic 117–151; BP diastolic 59–78; PULSE 65–94; TEMP 36.2–37; O2SAT 94–98; Ht 152.4 cm; Wt 88.8 kg
[2016-11-16] MEDS: INSULIN ASPART 100 UNITS/ML 3 ML PEN SC SCH ×6 (00:12→21:14)
[2016-11-16 06:45] LABS: ESTIMATED AVERAGE GLUCOSE 169 mg/dl; HA1C FLAG Normal (Normal)
[2016-11-16] MEDS: ASPIRIN 81 MG ECTAB PO SCH (07:35)
[2016-11-16] MEDS: ATORVASTATIN 40 MG TAB PO SCH (07:35)
[2016-11-16] MEDS: AMIODARONE 200 MG TAB PO SCH (07:35)
[2016-11-16] MEDS: CALCIUM ACETATE 667MG GELCAP PO SCH ×3 (07:35→17:03)
[2016-11-16] MEDS: GABAPENTIN 100 MG CAP PO SCH ×2 (07:36→21:15)
[2016-11-16] MEDS: ALLOPURINOL 100 MG TAB PO SCH (07:36)
[2016-11-16] MEDS: MULTIVITAMIN TAB PO SCH (07:36)
[2016-11-16] MEDS: INSULIN GLARGINE SOLOSTAR 100 UNITS/ML 3 ML PEN SQ SCH (07:36)
[2016-11-16] MEDS: SERTRALINE HCL 100 MG TAB PO SCH ×2 (07:36→21:16)
[2016-11-16] MEDS: PANTOprazole SOD 40 MG TAB PO SCH (07:36)
[2016-11-16] MEDS: AZITHROMYCIN 250 MG TAB PO SCH (07:36)
[2016-11-16] MEDS ORDERED: HEPARIN SOD (PORCINE) 1000 UNIT/ML 10 ML VIAL IV SCH ×2 (08:00→09:00)
--- NOTE | 2016-11-16 09:49 | Discharge Instructions ---
Discharge Instructions Admission Reason for Admission: Chf, Esrd, Hyperkalemia Discharge Discharge Diagnosis / Problem: ACUTE CHF WITH SYSTOLIC DYSFUNCITON /VOLUME OVERLOAD , ESRD ON DIALYSIS Discharge Goals Goal(s): Improve disease control, Diagnostic testing, Therapeutic intervention Activity Recommendations Activity Limitations: resume your previous activity . Instructions / Follow-Up Instructions / Follow-Up HOSPITAL FOLLOW UP WITH DR GREGORY GRANT ON 11/21/2016 @ 2:50 PM Gregory Grant, Internal Medicine [facility] Call your Primary Care doctor if any of the following symptoms or problems start or get worse: * Shortness of breath or difficulty breathing * Wake up at night short of breath * Chest pain * Cough * Swelling of your hands, feet, or legs * More fatigued or tired with your normal activity * Palpitations - sudden fast heart beats WEIGHT * Weigh yourself every morning after using the bathroom. * Use the same scale. * Wear the same amount of clothing. * Write your weight down on a chart. * Call your Primary Care doctor if you gain more than 2-3 pounds in 1-2 days. MEDICATIONS * Use this discharge instruction sheet for medication instructions. * Take your medications at the time your doctor ordered. * Do not skip a dose of your medicines. * If you miss a dose of medicine, take it as soon as possible, but DO NOT DOUBLE A DOSE. * Read your medicine information when you get home. * Know all of the side effects of your medicine. If in doubt, ask your pharmacist * Call your Primary Care doctor's office if you have any side effects. * Be sure all of your doctors know what medicine and herbs you take (including cold, flu, and herbal medicine). Take the following with you to your follow-up doctor appointments: * Weight Chart * Medication List * List of questions Do not drink excessive alcohol, beer or wine. Current Hospital Diet Patient's current hospital diet: Renal Diet, Diabetes Type 2 Diet, AHA Diet ( Heart Healthy), Low Potassium Diet (2g K) Discharge Diet Recommended Diet: AHA Diet (Heart Healthy), Renal Diet, Low Potassium Diet (2g K) Pending Studies Studies pending at discharge: no Laboratory Results Hemoglobin A1c Test 11/16/16 05:58 Range/Units Estimated Average Glucose 169 mg/dl Hemoglobin A1c 7.5 H 4.5-5.6 % Lipid Panel Test 11/09/16 04:17 Range/Units Triglycerides Level 89 0-150 mg/dl Cholesterol Level 113 0-200 mg/dl HDL Cholesterol 53 mg/dl Cholesterol/HDL Ratio 2.1 LDL Cholesterol, Calculated 42 mg/dl Medical Emergencies . Who to Call and When: Call 911 or go to the Emergency Room if: * If at any time you feel your situation is an emergency * You have tightness or pain in your chest that does not go away with rest or Nitroglycerin * You are very short of breath even with rest . Non-Emergent Contact Non-Emergency issues call your: Primary Care Provider . . "Provider Documentation" section prepared by Shalonda Cabrera. VTE Core Measure Inpt VTE Proph given/why not?: Phillip Monzon, SCD's
--- NOTE | 2016-11-16 10:14 | Nephrology Progress Note ---
Nephrology Progress Note Date of Service: Nov 16, 2016. Subjective breathing stable/markedly better after HD last time; cough unchanged; eating well; no n/v; no edema; new L shoulder bruising/ skin lesion Objective Date Time Temp Pulse Resp B/P Pulse Ox O2 Delivery O2 Flow Rate FiO2 11/16/16 07:45 Nasal Cannula 2.0 11/16/16 07:45 36.4 94 20 117/63 94 Nasal Cannula 2.0 11/16/16 04:00 Nasal Cannula 2.0 11/16/16 00:00 Nasal Cannula 2.0 11/15/16 22:39 36.4 73 19 165/75 95 Nasal Cannula 2.0 11/15/16 20:00 93 Nasal Cannula 3.0 11/15/16 19:47 36.5 71 18 151/75 93 Nasal Cannula 2.0 11/15/16 16:00 93 Nasal Cannula 3.0 11/15/16 15:27 36.8 69 18 164/81 93 2.0 11/15/16 12:00 Nasal Cannula 2.0 11/15/16 11:27 36.9 69 18 126/75 96 Nasal Cannula 2.0 Physical Exam: General-on 02nc 1.5L; frequent dry cough in exam, oriented x 3 nad, maneuvers readily for exam Eyes-eomi ENT-dry mm Neck-supple Lungs-bibasilar crackles; no distress Heart-rrr Abdomen-distended; NT + BS Extremities-no c/c; trace BLE edema, avf LUE; proximal L shoulder ecchymosis/ hematoma Neuro-carreon, fluent speech Current Inpatient Medications Medications (Trade) Dose Ordered Sig/Tyesha Route Start Time Stop Time Status Last Admin Dose Admin Acetaminophen (Tylenol Tab) 650 mg Q4H PRN PO 11/14/16 12:30 12/14/16 12:29 11/15/16 00:57 650 MG Nitroglycerin (Nitrostat Tab) 0.4 mg UD PRN SL 11/14/16 12:30 12/14/16 12:29 Insulin Aspart (novoLOG ASPART) SLIDING SCALE If C... ACHS SC 11/14/16 16:30 12/15/16 16:29 11/16/16 07:40 3 UNITS Glucose (Glucose 40% Gel) 15-30 GRAMS 15 GRAMS... UD PRN PO 11/14/16 12:30 12/14/16 12:29 Glucose (Glucose Chew Tab) 4-8 Tablets 4 Tabl... UD PRN PO 11/14/16 12:30 12/14/16 12:29 Dextrose (Dextrose 50% 50ML Syringe) 25-50ML OF 50% DW IV FOR... UD PRN IV 11/14/16 12:30 12/14/16 12:29 Glucagon (Glucagon Inj) 1 mg UD PRN SQ 11/14/16 12:30 12/14/16 12:29 Allopurinol (Zyloprim Tab) 100 mg QAM PO 11/15/16 09:00 12/15/16 08:59 11/16/16 07:36 100 MG Amiodarone HCl (Cordarone Tab) 400 mg DAILY PO 11/15/16 09:00 12/15/16 08:59 11/16/16 07:35 400 MG Aspirin (Ecotrin Tab) 81 mg QAM PO 11/15/16 09:00 12/15/16 08:59 11/16/16 07:35 81 MG Atorvastatin Calcium (Lipitor Tab) 40 mg DAILY PO 11/15/16 09:00 12/15/16 08:59 11/16/16 07:35 40 MG Clonazepam (Klonopin Tab) 0.25 mg HS PRN PO 11/14/16 12:30 12/14/16 12:29 11/15/16 02:06 0.25 MG Gabapentin (Neurontin Cap) 100 mg BID PO 11/14/16 21:00 12/14/16 20:59 11/16/16 07:36 100 MG Guaifenesin (Organidin Nr Tab) 200 mg Q8H PRN PO 11/14/16 12:30 12/14/16 12:29 11/14/16 22:44 200 MG Acetaminophen/ Hydrocodone Bitart ([place] 5/325 Tab) 1 tab Q12 PRN PO 11/14/16 12:30 11/28/16 12:29 11/15/16 21:57 1 TAB Ipratropium Ferguson (Atrovent 0.02% 0.5MG/2.5ML Neb) 0.5 mg QID PRN INH 11/14/16 12:30 12/14/16 12:29 Levalbuterol (Xopenex 0.63 Mg/ 3 Ml Neb) 0.63 mg QID PRN INH 11/14/16 12:30 12/14/16 12:29 Lorazepam (Ativan Tab) 0.5 mg TID PRN PO 11/14/16 12:30 12/14/16 12:29 Multivitamins (Multivitamin Tab) 1 tab QAM PO 11/15/16 09:00 12/15/16 08:59 11/16/16 07:36 1 TAB Prednisone (PredniSONE TAB) 30 mg Taper DAILY PO 11/15/16 09:00 11/23/16 08:59 11/16/16 07:36 30 MG Ranitidine HCl (zANTac TAB) 150 mg BID PRN PO 11/14/16 12:30 12/14/16 12:29 Sertraline HCl (Zoloft Tab) 100 mg BID PO 11/14/16 21:00 12/14/16 20:59 11/16/16 07:36 100 MG Calcium Acetate (Phoslo Cap) 667 mg TIDM PO 11/14/16 17:00 12/14/16 17:59 11/16/16 07:35 667 MG Pantoprazole Sodium (Protonix Tab) 40 mg DAILY PO 11/15/16 09:00 12/15/16 08:59 11/16/16 07:36 40 MG Heparin Sodium (Porcine) (Heparin Iv Bolus) 1,000 unit TODAY@0800 IV 11/16/16 08:00 11/16/16 18:00 Heparin Sodium (Porcine) (Heparin Iv Bolus) 400 unit Q1H IV 11/16/16 09:00 11/16/16 18:00 Insulin Glargine (Lantus Solostar Pen) SEE PROTOCOL TEXT BID SQ 11/15/16 21:00 12/15/16 20:59 11/15/16 21:10 15 UNIT Miscellaneous Information (Consult Glycemic Management Pharmacy) 1 ea UD PRN N/A 11/15/16 20:30 12/15/16 20:29 Last 24 Hours Test 11/15/16 11:39 11/15/16 16:20 11/15/16 20:11 11/16/16 00:09 Bedside Glucose 211 mg/dl 252 mg/dl 379 mg/dl 274 mg/dl Test 11/16/16 04:42 11/16/16 05:07 11/16/16 05:58 Bedside Glucose 67 mg/dl 93 mg/dl Estimated Average Glucose 169 mg/dl Hemoglobin A1c 7.5 % Assessment & Plan 71 y/o F w/ ESRD on TRSat HD via AVF, w/ PAF, HF, plm HTN, sleep apnea, chronic hypoxic respiratory failure on 02NC 3L w/ recent admission for bronchitis comes back to [facility] from facility after 11/11 d/c for evaluation/ mgt of volume overload, cough, exertional dyspnea ESRD -for dialysis today via avf on 2K bath > will go slightly longer on tx than her custom d/t vol OL concerns at admission/ slow recurrence of same evident on exam today Anemia of esrd -no procrit today but monitor for need HF and volume overload -UF as tolerated today> goal 2-3L -suspect cough related to volume as improves w/ HD >>>>pt does state she gets lightheaded w/ longer walking > per primary service and PT L shoulder bruising ? if related to fall prior to admission; doubt relates to dialysis Appreciate consult; will follow with you. Care coordinated w/ Dr. Cabrera
[2016-11-16] MEDS: HYDROCODONE/ACETAMOPHEN 5/325MG TAB PO PRN (16:06)
--- NOTE | 2016-11-16 16:06 | Pharmacy Progress Note ---
Glycemic: Assessment & Plan Date of Service Nov 16, 2016. Assessment & Plan Assessment * BSG's significantly increasing over the course of the day yesterday 2nd steroid-induced effects - carb ratio needs to be tightened * BSG significantly low this AM - required treatment for hypoglycemia. This was both 2nd aggressive Lantus and sliding scale administered overnight * Lantus needs to be significantly reduced. Would prefer to do NPH in the AM as it mimics prednisone pharmacokinetics but will keep Lantus in the PM as this will make transitioning back to patient's home regimen easier * Will not provide sliding scale coverage overnight * Increase goal range to help prevent repeat hypoglycemia * Prednisone remains at 30 mg daily for now Plan * Basal insulin: Decrease Lantus 8 units SC HS - 1/2 dose for BSG < 110 mg/dL * Correctional Insulin: Novolog Correction per scale ACHS Increase Goal Range: Low 120 mg/dL - High 160 mg/dL Correction Factor: 30 mg/dL/unit * Prandial insulin: Tighten Per carb ratio of 1 unit per 12 grams CHO consumed * Please note that the plan above was derived based on current level of insulin resistance and hospital stress. These recommendations are appropriate for inpatient admission only. Plan of care upon discharge will need to be reassessed to avoid potential outpatient hypo/hyperglycemia.
--- NOTE | 2016-11-16 19:03 | Progress Note ---
Internal Med Progress Note Date of Service: Nov 16, 2016. Provider Documentation: SUBJECTIVE: had dialysis earlier today legs still feels week and wobbly no loss of balance no SOB or AGUILERA has non productive cough OBJECTIVE: Vital Signs-as noted below Exam: General Appearance: +Pleasant , no apparent distress Head: normocephalic, atraumatic Eyes: PERRL, EOMI, sclerae normal ENT: hearing grossly normal, pharynx normal Neck: supple, no JVD, trachea midline Respiratory/Chest: chest non-tender, no respiratory distress, minimum crackles at base Cardiovascular: regular rate, rhythm, no edema, no gallop, no JVD, no murmur, normal peripheral pulses Abdomen/GI: normal bowel sounds, non tender, soft, no organomegaly, Back: normal inspection, no muscle spasm Extremities/Musculoskeletal: no calf tenderness, normal capillary refill, Neurologic/Psych: alert, oriented x 3, no focal neurological deficit Lab data as noted below. ASSESSMENT & PLAN: SHORTNESS OF BREATH -improved after Dialysis -Likely multifactorial with CHF, ESRD and acute bronchitis -CXR shows pulmonary congestion missed dialysis today nephrology consulted appreciate input -s/p dialysis today will be discharged home tomorrow ACUTE ON CHRONIC CHF /SYSTOLIC DYSFUNCTION ; due to missed dialysis , vol overload improved after dialysis cont to monitor vol status -repeat Cxray today ; post dialysis IMPRESSION: 1. No radiographic evidence of overt pulmonary edema. 2. Mild hazy right lower lung opacity. 3. Stable cardiomegaly. ELEVATED TROPONIN -0.05, no chest pain, EKG nonischemic -elevation possibly secondary to ESRD /decompensated CHF -cardiac strain HYPERKALEMIA -improved after dialysis -low K /renal diet follow PRP - nephrology following ESRD ON HD -on schedule dialysis Sunday, , Sunday -Follows with Nephrology in [place] - CHRONIC SYSTOLIC CHF/PULMONARY HTN -Echo on previous admission EF 45-50%, Grade 2 diastolic dysfunction, pulmonary hypertension presents with vol overload /decompensated CHF due to missed dialysis cont dialysis as per Nephrology monitor vol status TYPE 2 DM on insulin -A1c 6.6 -continue Lantus -SSI coverage -BSG AC HS PAROXYSMAL AFIB -currently paced rhythm -continue Amiodarone --not on anticoagulation secondary to history of pericardial hemorrhage SICK SINUS SYNDROME -s/p pacemaker H/O DVT/PE -s/P IVC filter -not on anticoagulation secondary to history of pericardial hemorrhage SLEEP APNEA OBESITY HYPOVENTILATION -continue Oxygen -BIPAP HS HTN -BP stable - HISTORY OF TIA -continue Aspirin, Statin DEPRESSION -continue Zoloft GERD -Continue Zantac, PPI DVT PROPHYLAXIS: SCDs RE: history of hemorrhagic pericardial effusion CODE STATUS: FULL CODE DISPOSITION Discharge home tomorrow has [facility] nursing referral already set up with Home PT Medicine follow up with Dr Grant Vital Signs: Date Time Temp Pulse Resp B/P Pulse Ox O2 Delivery O2 Flow Rate FiO2 11/16/16 15:05 36.5 70 16 129/63 97 Nasal Cannula 2.0 Humidified Oxygen 11/16/16 14:30 70 126/74 11/16/16 14:15 36.5 75 149/68 11/16/16 13:45 68 132/67 11/16/16 13:30 65 118/69 11/16/16 13:15 71 121/71 11/16/16 13:00 71 121/71 11/16/16 12:45 66 133/68 11/16/16 12:30 70 126/74 11/16/16 12:00 72 132/69 11/16/16 11:45 70 136/78 11/16/16 11:30 68 134/65 11/16/16 11:15 75 129/62 11/16/16 11:00 71 136/64 11/16/16 10:45 69 141/59 11/16/16 10:30 72 151/65 11/16/16 10:15 72 130/67 11/16/16 10:15 36.5 71 145/75 11/16/16 07:45 Nasal Cannula 2.0 11/16/16 07:45 36.4 94 20 117/63 94 Nasal Cannula 2.0 11/16/16 04:00 Nasal Cannula 2.0 11/16/16 00:00 Nasal Cannula 2.0 11/15/16 22:39 36.4 73 19 165/75 95 Nasal Cannula 2.0 11/15/16 20:00 93 Nasal Cannula 3.0 11/15/16 19:47 36.5 71 18 151/75 93 Nasal Cannula 2.0 Lab Results: Results Past 24 Hours Test 11/15/16 20:11 11/16/16 00:09 11/16/16 04:42 11/16/16 05:07 Range/Units Bedside Glucose 379 274 67 93 70-90 mg/dl Test 11/16/16 05:58 11/16/16 12:18 11/16/16 16:22 Range/Units Estimated Average Glucose 169 mg/dl Hemoglobin A1c 7.5 4.5-5.6 % Bedside Glucose 142 156 70-90 mg/dl
[2016-11-16] MEDS ORDERED: INSULIN GLARGINE SOLOSTAR 100 UNITS/ML 3 ML PEN SQ SCH ×2 (21:00)
[2016-11-17] MEDS: ACETAMINOPHEN 325 MG TAB PO PRN (00:16)
[2016-11-17] MEDS: HYDROCODONE/ACETAMOPHEN 5/325MG TAB PO PRN ×2 (05:23→08:42)
[2016-11-17] MEDS: INSULIN ASPART 100 UNITS/ML 3 ML PEN SC SCH ×2 (06:30→11:00)
[2016-11-17 07:18] VITALS: BP 122/71; PULSE 70; TEMP 36.6; O2SAT 97
[2016-11-17 08:00] VITALS: O2SAT 97
[2016-11-17] MEDS: CALCIUM ACETATE 667MG GELCAP PO SCH ×2 (08:43→12:23)
[2016-11-17] MEDS: PANTOprazole SOD 40 MG TAB PO SCH (08:43)
[2016-11-17] MEDS: AMIODARONE 200 MG TAB PO SCH (08:44)
[2016-11-17] MEDS: GUAIFENESIN 200 MG TAB PO PRN (08:44)
[2016-11-17] MEDS: MULTIVITAMIN TAB PO SCH (08:45)
[2016-11-17] MEDS: ALLOPURINOL 100 MG TAB PO SCH (08:45)
[2016-11-17] MEDS: GABAPENTIN 100 MG CAP PO SCH (08:45)
[2016-11-17] MEDS: SERTRALINE HCL 100 MG TAB PO SCH (08:46)
[2016-11-17] MEDS: ATORVASTATIN 40 MG TAB PO SCH (08:46)
[2016-11-17] MEDS ORDERED: INSULIN GLARGINE SOLOSTAR 100 UNITS/ML 3 ML PEN SQ SCH ×2 (09:00→21:00)
[2016-11-17] MEDS ORDERED: AZIT250T5 PO (10:54)
--- NOTE | 2016-11-17 10:58 | Progress Note ---
Internal Med Progress Note Date of Service: Nov 17, 2016. Provider Documentation: SUBJECTIVE: feels much better today no cough or SOB able to stand up and ambulate in room ,no evidence of dizzy spell or lightheadedness stable to be discharged home today OBJECTIVE: Vital Signs-as noted below Exam: General Appearance: +Pleasant , no apparent distress Head: normocephalic, atraumatic Eyes: PERRL, EOMI, sclerae normal ENT: hearing grossly normal, pharynx normal Neck: supple, no JVD, trachea midline Respiratory/Chest: chest non-tender, no respiratory distress, minimum crackles at base Cardiovascular: regular rate, rhythm, no edema, no gallop, no JVD, no murmur, normal peripheral pulses Abdomen/GI: normal bowel sounds, non tender, soft, no organomegaly, Back: normal inspection, no muscle spasm Extremities/Musculoskeletal: no calf tenderness, normal capillary refill, Neurologic/Psych: alert, oriented x 3, no focal neurological deficit Lab data as noted below. ASSESSMENT & PLAN: SHORTNESS OF BREATH due to vol overload , decompensated CHF -improved after Dialysis -CXR 11/14/16 shows pulmonary congestion nephrology consulted appreciate input -s/p dialysis symptom has improved markedly , no orthopnea, no SOB or AGUILERA repeat CXray 11/15/16 -resolution of pulmonary congestion NON PRODUCTIVE COUGH : Possible bronchitis -worsening of symptom with pulmonary congestion Cxray shows mild rt lower lobe haziness no fever or chills, no elevated white count pt given PO Zithromax 250 mg X 2 dose ordered for 1 more dose prior to discharge script for 250 mg PO Daily x 2 days sent to pharmacy to complete total 5 days course ACUTE ON CHRONIC CHF /SYSTOLIC DYSFUNCTION ; Due to vol overload improved after dialysis on 11/14/16 cont to monitor vol status -repeat Cxray 11/15/16 ; IMPRESSION: 1. No radiographic evidence of overt pulmonary edema. 2. Mild hazy right lower lung opacity. 3. Stable cardiomegaly. pt got her scheduled dialysis yesterday 11/16/16 with removal of > 3 L fluid stable to be discharged home will continue her schedule dialysis of Tue/Thrus/Sat -has AV fistula for dialysis access ELEVATED TROPONIN -0.05, no chest pain, EKG nonischemic -elevation possibly secondary to ESRD /decompensated CHF -cardiac strain HYPERKALEMIA -improved after dialysis -low K /renal diet follow PRP - nephrology following ESRD ON HD -on schedule dialysis Sunday, , Sunday -Follows with Nephrology in [place] - CHRONIC SYSTOLIC CHF/PULMONARY HTN -Echo on previous admission EF 45-50%, Grade 2 diastolic dysfunction, pulmonary hypertension presents with vol overload /decompensated CHF due to missed dialysis cont dialysis as per Nephrology stable vol status post dialysis TYPE 2 DM on insulin -A1c 6.6 -continue Lantus -SSI coverage -BSG AC HS PAROXYSMAL AFIB -currently paced rhythm -continue Amiodarone --not on anticoagulation secondary to history of pericardial hemorrhage SICK SINUS SYNDROME -s/p pacemaker pacemaker interrogation showed stable function H/O DVT/PE -s/P IVC filter -not on anticoagulation secondary to history of pericardial hemorrhage SLEEP APNEA OBESITY HYPOVENTILATION -continue Oxygen -BIPAP HS HTN -BP stable - HISTORY OF TIA -continue Aspirin, Statin DEPRESSION -continue Zoloft GERD -Continue Zantac, PPI DVT PROPHYLAXIS: SCDs RE: history of hemorrhagic pericardial effusion CODE STATUS: FULL CODE DISPOSITION Discharge home today has [facility] nursing referral already set up with Home PT Medicine follow up with Dr Grant Vital Signs: Date Time Temp Pulse Resp B/P Pulse Ox O2 Delivery O2 Flow Rate FiO2 11/17/16 08:00 97 Nasal Cannula 2.0 11/17/16 07:18 36.6 70 18 122/71 97 Nasal Cannula 2.0 11/17/16 00:00 Nasal Cannula 2.0 11/16/16 23:37 37.0 71 16 132/72 97 11/16/16 22:13 97 Nasal Cannula 2.0 11/16/16 19:44 36.2 70 15 132/74 98 Nasal Cannula 2.0 Humidified Air 11/16/16 15:05 36.5 70 16 129/63 97 Nasal Cannula 2.0 Humidified Oxygen 11/16/16 14:30 70 126/74 11/16/16 14:15 36.5 75 149/68 11/16/16 13:45 68 132/67 11/16/16 13:30 65 118/69 11/16/16 13:15 71 121/71 11/16/16 13:00 71 121/71 11/16/16 12:45 66 133/68 11/16/16 12:30 70 126/74 11/16/16 12:00 72 132/69 11/16/16 11:45 70 136/78 11/16/16 11:30 68 134/65 11/16/16 11:15 75 129/62 11/16/16 11:00 71 136/64 Lab Results: Results Past 24 Hours Test 11/16/16 12:18 11/16/16 16:22 11/16/16 20:40 11/17/16 05:20 Range/Units Bedside Glucose 142 156 237 75 70-90 mg/dl Test 11/17/16 07:29 Range/Units Bedside Glucose 122 70-90 mg/dl
[2016-11-17] MEDS ORDERED: AZITHROMYCIN 250 MG TAB PO ONE (11:00)
--- NOTE | 2016-11-17 11:02 | Discharge Summary ---
Discharge Summary Admission Date: Nov 14, 2016 at 12:26 Discharge Date: Nov 17, 2016 Discharge Disposition: Home with services Principal Diagnosis: ACUTE CHF WITH SYSTOLIC DYSFUNCITON /VOLUME OVERLOAD , ESRD ON DIALYSIS Secondary Diagnoses/Problems: Medical Problems: (1) Atrial fibrillation Status: Chronic (2) Cardiomegaly Status: Chronic (3) Diabetic neuropathy Status: Chronic (4) DM2 (diabetes mellitus, type 2) Status: Chronic (5) End stage renal disease Status: Chronic (6) AC (generalized anxiety disorder) Status: Chronic (7) GERD (gastroesophageal reflux disease) Status: Chronic (8) Healed or old pulmonary embolism Status: Chronic (9) Heart failure Status: Chronic (10) HLD (hyperlipidemia) Status: Chronic (11) HTN (hypertension) Status: Chronic (12) Melanoma Status: Chronic (13) Obesity hypoventilation syndrome Status: Chronic (14) EVERTON (obstructive sleep apnea) Status: Chronic (15) Pacemaker Status: Chronic (16) Pulmonary HTN Status: Chronic (17) TIA (transient ischemic attack) Status: Chronic Surgical Problems: (1) H/O total hysterectomy Status: Chronic (2) S/P cholecystectomy Status: Chronic (3) S/P IVC filter Status: Chronic Procedures: DIALYSIS Consultations: NEPHROLGOY DR PADGETT Medication Reconciliation New Medications: Azithromycin (Zithromax) 250 Mg Tab 250 MG PO DAILY for 2 Days, #2 TAB Continued Medications: Acetaminophen (Tylenol Extra Strength) 500 Mg Tab 1 TAB PO Q4HPRN PRN for Pain Allopurinol (Zyloprim) 100 Mg Tab 100 MG PO QAM Amiodarone Hcl (Cordarone) 200 Mg Tab 400 MG PO DAILY, TAB Aspirin (Aspirin Ec) 81 Mg Tab 1 TAB PO QAM Atorvastatin (Lipitor) 40 Mg Tab 40 MG PO DAILY, TAB Calcium Acetate (Phosphate Bin (Calcium Acetate) 667 Mg Tab 1 TAB PO TIDM Clonazepam (Klonopin) 0.5 Mg Tab 0.25 MG PO HS PRN for Anxiety Esomeprazole Magnesium (Nexium) 40 Mg Cap 40 MG PO DAILY, CAP Gabapentin (Neurontin) 100 Mg Cap 100 MG PO BID, CAP Guaifenesin (Organ-I Nr) 200 Mg Tab 200 MG PO Q8H PRN for Cough for 10 Days, #30 TAB Hydrocodone/Acetaminophen 5MG/325MG ([place] 5MG/325MG) Tab 1 TABLET PO Q12 PRN for Pain for 5 Days MODERATE, SEVERE. Insulin Glargine (Lantus Solostar Pen) 100 Unit/ Inj 10 UNIT SQ HS, ML Insulin Lispro (Human) (Humalog Kwikpen) 100 Unit/Ml Inj 5 UNITS SC AC, #1 1 Refill Ipratropium [place] (Ipratropium [place]) 0.5 Mg/2.5 Ml Nebu 1 VIAL NEB QID PRN for SOB/Wheezing for 30 Days, #300 ML 5 Refills Levalbuterol (Levalbuterol HCl) 0.63 Mg/3 Ml Nebu 0.63 MG INH QID PRN for SOB/Wheezing Lorazepam (Ativan) 0.5 Mg Tab 0.5 MG PO TID PRN for Anxiety/Agitation, TAB Multiple Vitamin (Multivitamin) 1 Tab Tab 1 TAB PO QAM Nitroglycerin (Nitrostat) 0.4 Mg Sub 0.4 MG UT PRN, BTL Oxygen (Oxygen) Gas 2 LITERS NA HS PRN for AND WITH EXERTION Prednisone Tab (Prednisone) 10 Mg Tab 10 MG PO UD for 10 Days, #30 TAB take 4 tabs for 2 days, then 3 tabs for 3 days, then 2 tabs for 3 days, then 1 tab for 2 days, and stop. Ranitidine (Zantac) 150 Mg Tab 150 MG PO BID PRN for Heartburn Sertraline Hcl (Zoloft) 100 Mg Tab 100 MG PO BID Discontinued Medications: Azithromycin (Azithromycin) 250 Mg Tab 250 MG PO QAM for 4 Days, #4 TAB Referrals At Discharge Follow up Referrals: Physician Referral - 11/21/16 with Gregory Grant M.D. Admission Information HPI (per Admitting provider): Patient seen and examined. 71 year old female with PMHx of ESRD on dialysis, Systolic CHF/Pulmonary HTN, IDDM, PAF, S/p Pacemaker, HTN and other problems listed below presents to the ED complaining of SOB prior to arrival. Patient was recently admitted form 11/08-11/11 with similar symptoms thought to be multifactorial secondary to CHF, ESRD and possible acute bronchitis. She was discharged home on azithromycin and prednisone. Patient reports she was feeling okay until this morning. This morning was the first time she tried to walk extended distances. She reports she became SOB walking to the elevator to go to dialysis. She states she had to stop 3 times to catch her breath so she came to the ED instead of dialysis. She reports dry cough, and generalized weakness. She states her abdomen feels bloated. She states she has had about 1 pound of weight gain. She denies fevers chills, chest pain, palpitations, nausea, vomiting, diarrhea, dysuria, calf pain. She received dialysis Sunday and follows with a cumulative effects analyst in [place]. She did not go to dialysis today. She has been wearing 3L of oxygen continuously at home. In the ED VS are stable, CXR shows congestion, K+ is 5.5, Troponin is 0.05. She will be admitted for further workup and treatment. Physical Exam (per Admitting): General Appearance: + pertinent finding (Pleasant WD/WN 71 year old female lying in bed in NAD with family at bedside ) Head: normocephalic, atraumatic Eyes: PERRL, EOMI, sclerae normal ENT: hearing grossly normal, pharynx normal Neck: supple, no JVD, trachea midline Respiratory/Chest: chest non-tender, no respiratory distress, no accessory muscle use, + crackles (BL bases, otherwise CTA ) Cardiovascular: regular rate, rhythm, no edema, no gallop, no JVD, no murmur , normal peripheral pulses Abdomen/GI: normal bowel sounds, non tender, soft, no organomegaly, + distended Back: normal inspection, no muscle spasm Extremities/Musculoskelatal: no calf tenderness, normal capillary refill, + pedal edema (trace) Neurologic/Psych: alert, oriented x 3, + pertinent finding (no motor or sensory deficits noted on gross exam ) Skin: normal color, warm/dry, no rash Lymphatic: no adenopathy Hospital Course SHORTNESS OF BREATH due to vol overload , decompensated CHF -improved after Dialysis -CXR 11/14/16 shows pulmonary congestion nephrology consulted appreciate input -s/p dialysis symptom has improved markedly , no orthopnea, no SOB or AGUILERA repeat CXray 11/15/16 -resolution of pulmonary congestion NON PRODUCTIVE COUGH : Possible bronchitis -worsening of symptom with pulmonary congestion Cxray shows mild rt lower lobe haziness no fever or chills, no elevated white count pt given PO Zithromax 250 mg X 2 dose ordered for 1 more dose prior to discharge script for 250 mg PO Daily x 2 days sent to pharmacy to complete total 5 days course ACUTE ON CHRONIC CHF /SYSTOLIC DYSFUNCTION ; Due to vol overload improved after dialysis on 11/14/16 cont to monitor vol status -repeat Cxray 11/15/16 ; IMPRESSION: 1. No radiographic evidence of overt pulmonary edema. 2. Mild hazy right lower lung opacity. 3. Stable cardiomegaly. pt got her scheduled dialysis yesterday 11/16/16 with removal of > 3 L fluid stable to be discharged home will continue her schedule dialysis of Sun[facility]Sun -has AV fistula for dialysis access ELEVATED TROPONIN -0.05, no chest pain, EKG nonischemic -elevation possibly secondary to ESRD /decompensated CHF -cardiac strain HYPERKALEMIA -improved after dialysis -low K /renal diet follow PRP - nephrology following ESRD ON HD -on schedule dialysis Sunday, , Sunday -Follows with Nephrology in [place] - CHRONIC SYSTOLIC CHF/PULMONARY HTN -Echo on previous admission EF 45-50%, Grade 2 diastolic dysfunction, pulmonary hypertension presents with vol overload /decompensated CHF due to missed dialysis cont dialysis as per Nephrology stable vol status post dialysis TYPE 2 DM on insulin -A1c 6.6 -continue Lantus -SSI coverage -BSG AC HS PAROXYSMAL AFIB -currently paced rhythm -continue Amiodarone --not on anticoagulation secondary to history of pericardial hemorrhage SICK SINUS SYNDROME -s/p pacemaker pacemaker interrogation showed stable function H/O DVT/PE -s/P IVC filter -not on anticoagulation secondary to history of pericardial hemorrhage SLEEP APNEA OBESITY HYPOVENTILATION -continue Oxygen -BIPAP HS HTN -BP stable - HISTORY OF TIA -continue Aspirin, Statin DEPRESSION -continue Zoloft GERD -Continue Zantac, PPI DVT PROPHYLAXIS: SCDs RE: history of hemorrhagic pericardial effusion CODE STATUS: FULL CODE DISPOSITION Discharge home today has [facility] home nursing referral already set up with Home PT Medicine follow up with Dr Grant Total time spent on discharge = 40 MINS This includes examination of the patient, discharge planning, medication reconciliation, and communication with other providers. Discharge Instructions DI: CHF v4 Discharge Instructions Admission Reason for Admission: Chf, Esrd, Hyperkalemia Discharge Discharge Diagnosis / Problem: ACUTE CHF WITH SYSTOLIC DYSFUNCITON /VOLUME OVERLOAD , ESRD ON DIALYSIS Discharge Goals Goal(s): Improve disease control, Diagnostic testing, Therapeutic intervention Activity Recommendations Activity Limitations: resume your previous activity . Instructions / Follow-Up Instructions / Follow-Up HOSPITAL FOLLOW UP WITH DR GREGORY GRANT ON 11/21/2016 @ 2:50 PM Gregory Grant, Internal Medicine [facility] Call your Primary Care doctor if any of the following symptoms or problems start or get worse: * Shortness of breath or difficulty breathing * Wake up at night short of breath * Chest pain * Cough * Swelling of your hands, feet, or legs * More fatigued or tired with your normal activity * Palpitations - sudden fast heart beats WEIGHT * Weigh yourself every morning after using the bathroom. * Use the same scale. * Wear the same amount of clothing. * Write your weight down on a chart. * Call your Primary Care doctor if you gain more than 2-3 pounds in 1-2 days. MEDICATIONS * Use this discharge instruction sheet for medication instructions. * Take your medications at the time your doctor ordered. * Do not skip a dose of your medicines. * If you miss a dose of medicine, take it as soon as possible, but DO NOT DOUBLE A DOSE. * Read your medicine information when you get home. * Know all of the side effects of your medicine. If in doubt, ask your pharmacist * Call your Primary Care doctor's office if you have any side effects. * Be sure all of your doctors know what medicine and herbs you take (including cold, flu, and herbal medicine). Take the following with you to your follow-up doctor appointments: * Weight Chart * Medication List * List of questions Do not drink excessive alcohol, beer or wine. Current Hospital Diet Patient's current hospital diet: Renal Diet, Diabetes Type 2 Diet, AHA Diet ( Heart Healthy), Low Potassium Diet (2g K) Discharge Diet Recommended Diet: AHA Diet (Heart Healthy), Renal Diet, Low Potassium Diet (2g K) Pending Studies Studies pending at discharge: no Laboratory Results Hemoglobin A1c Test 11/16/16 05:58 Range/Units Estimated Average Glucose 169 mg/dl Hemoglobin A1c 7.5 H 4.5-5.6 % Lipid Panel Test 11/09/16 04:17 Range/Units Triglycerides Level 89 0-150 mg/dl Cholesterol Level 113 0-200 mg/dl HDL Cholesterol 53 mg/dl Cholesterol/HDL Ratio 2.1 LDL Cholesterol, Calculated 42 mg/dl Medical Emergencies . Who to Call and When: Call 911 or go to the Emergency Room if: * If at any time you feel your situation is an emergency * You have tightness or pain in your chest that does not go away with rest or Nitroglycerin * You are very short of breath even with rest . Non-Emergent Contact Non-Emergency issues call your: Primary Care Provider . . "Provider Documentation" section prepared by Shalonda Cabrera. VTE Core Measure Inpt VTE Proph given/why not?: Phillip Monzon, SCD's Additional Copies To Gregory Grant M.D.
--- NOTE | 2016-11-17 13:46 | Pharmacy Progress Note ---
Glycemic: Assessment & Plan Date of Service Nov 17, 2016. Assessment & Plan The patient received 48 units of insulin on 11/15(when prednisone first started) , and 18 units on 11/16. BSGs ranging 75 -237 mg/dl over the past 24hrs. FBS is low, and prednisone dose is to be decreased, so will decrease Lantus again. A1c is not a good indicator of glycemic control in ESRD- she had HD on 11/16. * Basal insulin: Lantus 6 units every hs, give 1/2 dose if BSG is less than 110 * Correctional Insulin: Novolog Correction per scale ACHS Goal Range: Low 120 mg/dL - High 160 mg/dL Correction Factor: 30 mg/dL/unit * Prandial insulin: Per carb ratio of 1 unit per 12 grams CHO consumed BSGs continue to improve, no other changes needed to inpatient regimen at this time. Pharmacy will continue to monitor patient daily and write orders per [facility] inpatient glycemic control protocol. Thanks. DISCHARGE RECOMMENDATION: Patient has been using a bit less insulin than former home dose. However, with some ongoing steroid and likely increase in PO intake, her previous regimen of Lantus 10 units hs and Humalog 5 units w/meals seems a reasonable starting point. She should followup closely with outpatient provider. * Please note that the plan above was derived based on current level of insulin resistance and hospital stress. These recommendations are appropriate for inpatient admission only. Plan of care upon discharge will need to be reassessed to avoid potential outpatient hypo/hyperglycemia.
[2016-11-17 15:05] VITALS: BP 122/71; PULSE 70; TEMP 36.6; O2SAT 97
== END 2016-11-17 16:30 | disposition home health service (06) | DRG 291 ==
LOC: ENRESERVDT → ENRESERVTM → EDBD 10:36 → C.EDB 10:39 → C.MED 12:26
PROVIDERS: ADMIT Emergency Medicine; ATTEND Hospitalist
DX: I50.23 Acute on chronic systolic (congestive) heart failure (principal); N18.6 End stage renal disease; E66.2 Morbid (severe) obesity with alveolar hypoventilation; J96.11 Chronic respiratory failure with hypoxia; I13.2 Hypertensive heart and chronic kidney disease with heart failure and with stage 5 chronic kidney disease, or end stage renal disease; Z68.38 Body mass index [BMI] 38.0-38.9, adult; J20.9 Acute bronchitis, unspecified; I48.0 Paroxysmal atrial fibrillation; I48.2 Chronic atrial fibrillation; E87.5 Hyperkalemia; K21.9 Gastro-esophageal reflux disease without esophagitis; F32.9 Major depressive disorder, single episode, unspecified; I27.2 Other secondary pulmonary hypertension; E87.70 Fluid overload, unspecified; E11.40 Type 2 diabetes mellitus with diabetic neuropathy, unspecified; E11.22 Type 2 diabetes mellitus with diabetic chronic kidney disease; F41.1 Generalized anxiety disorder; E78.5 Hyperlipidemia, unspecified; R79.89 Other specified abnormal findings of blood chemistry; D63.1 Anemia in chronic kidney disease; S40.012A Contusion of left shoulder, initial encounter; W19.XXXA Unspecified fall, initial encounter; Z95.0 Presence of cardiac pacemaker; M54.5 Low back pain; G89.29 Other chronic pain; Z99.89 Dependence on other enabling machines and devices; M48.00 Spinal stenosis, site unspecified; R15.9 Full incontinence of feces; Z87.891 Personal history of nicotine dependence; Z95.828 Presence of other vascular implants and grafts; Z86.73 Personal history of transient ischemic attack (TIA), and cerebral infarction without residual deficits; C43.9 Malignant melanoma of skin, unspecified; Z79.4 Long term (current) use of insulin; Z79.82 Long term (current) use of aspirin; Z79.52 Long term (current) use of systemic steroids; Z79.899 Other long term (current) drug therapy; Z79.891 Long term (current) use of opiate analgesic; Z99.81 Dependence on supplemental oxygen

== ENCOUNTER → 2016-12-08 | Outpatient (CLI) | payer OTHER ==
[~2016-12-08] MED LIST changes: -ATRINS INH; +ATRINS NEB; +OPTIRAY 320 IV PRN; -PRED10TA PO; -PRVHFAIN INH; -ZTHM250 PO
--- NOTE | 2016-12-08 11:54 | DIAGNOSTIC IMAGING REPORT ---
CT OF THE CHEST WITH IV CONTRAST CLINICAL HISTORY: Melanoma. COMPARISON STUDY: 11/15/2015 TECHNIQUE: Following the IV administration of 93 mL of Optiray-320, CT of the thorax was performed from the thoracic inlet to the lung bases. Images are reviewed in the axial, sagittal, and coronal planes. IV contrast was administered without complication. CT DOSE: 1544.13 mGycm FINDINGS: Thyroid: Imaged portions of the thyroid gland are normal in appearance. Thoracic aorta: The thoracic aorta is normal in course and caliber, noting standard 3-vessel arch anatomy. No aneurysm or dissection is seen. Pulmonary vasculature: The pulmonary trunk is normal in caliber. There are no central filling defects identified to suggest pulmonary embolus. Note that this examination was not protocoled for the evaluation of pulmonary emboli. HEART: The heart is enlarged. There is a right subclavian dual-chamber central venous pacemaker present. Lungs and pleural spaces: No pleural effusions are visualized. There is a 9 mm groundglass nodule within the right upper lobe as visualized in image #[id number]. This was not visualized the prior study however the prior study was compromised due to motion artifact. There are bibasal atelectatic changes. Mediastinum: There is no mediastinal lymphadenopathy. Monica: Clear. Axilla: Clear. Upper abdomen: Partially visualized upper abdominal viscera is within normal limits. Skeletal structures: There are no lytic or blastic osseous lesions. IMPRESSION: 1. No CT evidence of metastatic disease 2. 9 mm groundglass right upper lobe pulmonary nodule. Please refer to below summary of Fleischner criteria recommendations for follow-up of incidental CT nodules (Alec Escalante, Guidelines for management of small pulmonary nodules detected on CT scans: A statement from the Fleischner Society, Radiology 237: [phone].) Low Risk Patient: Minimal or no smoking or other known risk factors for malignancy <=4 mm: No follow-up needed. >4-6 mm: Initial follow-up CT at 12 months; if unchanged, no further follow-up. >6-8 mm: Initial follow-up CT at 6-12 months then at 18-24 months if no change. >8 mm: Follow-up CT at \R\3, 9, 24 months, or PET and/or biopsy. High Risk Patient: History of smoking or other known risk factors <=4 mm: Follow-up at 12 months; if unchanged, no further follow-up. >4-6 mm: Initial follow-up CT at 6-12 months then at 18-24 months if no change. >6-8 mm: Initial follow-up CT at 3-6 months then at 9-12 and 24 months if no change. >8 mm: Same as low risk patient. Note: Nodule size measured as average of length and width. Ground glass or partly solid nodules may require longer follow-up to exclude indolent adenocarcinoma. Electronically signed by: Danilo Hathaway M.D. 12/08/2016 11:52 AM Dictated Date/Time: 12/08/2016 11:41 AM
--- NOTE | 2016-12-08 14:25 | DIAGNOSTIC IMAGING REPORT ---
CT SCAN OF THE ABDOMEN AND PELVIS WITH IV CONTRAST CLINICAL HISTORY: Melanoma. COMPARISON STUDY: Abdominal CT dated 11/15/2015. TECHNIQUE: Following the IV administration of 93 cc of Optiray 320, CT scan of the abdomen and pelvis is performed from the lung bases to the proximal femora. Images are reviewed in the axial, sagittal, and coronal planes. IV contrast was administered without complication. Automated dose control exposure was utilized. FINDINGS: Lung bases: The heart is enlarged and without pericardial effusion. Pacemaker leads are noted. The lung bases are clear noting dependent atelectasis. There is a tiny hiatal hernia. Liver: The contrast-enhanced liver is normal in size, contour, and attenuation. There is mild central intrahepatic biliary ductal dilatation. The hepatic veins and portal veins are patent. Gallbladder: Surgically absent noting clips in the gallbladder fossa. Spleen: Normal in size and attenuation. Pancreas: The pancreas is atrophic and grossly unremarkable. Adrenal glands: Unremarkable. Kidneys: The contrast enhanced kidneys are markedly atrophic and without hydronephrosis. The kidneys enhance symmetrically. There are numerous subcentimeter cortical hypodensities. These may represent cysts but are too small for definitive characterization. A left renal artery stent is identified. Abdominal vasculature: The abdominal aorta is normal in course and caliber noting advanced atherosclerotic calcification. An IVC filter is in place. The tip originates above the level of the renal veins. Bowel: The small bowel and colon are normal in course and caliber. There is mild to moderate colonic fecal retention. The appendix is well-visualized and normal. Peritoneum: There is no intraperitoneal free air or abdominal ascites. There is a small fat-containing umbilical hernia. Lymphadenopathy: None. Pelvic viscera: The bladder is decompressed and not well evaluated. The uterus is surgically absent. No adnexal lesion is seen. Skeletal structures: The skeletal structures are osteopenic. Mild lumbosacral spondylosis is observed. No lytic or blastic lesions are seen. IMPRESSION: 1. There is no evidence of metastatic disease in the abdomen or pelvis. 2. Cardiomegaly. 3. The kidneys are markedly atrophic and without hydronephrosis. 4. Additional changes as above. Electronically signed by: Rey Cardoza M.D. 12/08/2016 2:24 PM Dictated Date/Time: 12/08/2016 2:17 PM
== END | disposition home or self-care (01) ==
LOC: C.CTS 08:23
PROVIDERS: ATTEND Internal Medicine Hematology & Oncology
DX: C43.9 Malignant melanoma of skin, unspecified (principal); I51.7 Cardiomegaly

== ENCOUNTER → 2017-03-26 | Outpatient (CLI) | payer OTHER ==
[~2017-03-26] MED LIST changes: +ALBUAER INH; +CARV3.122 PO; +FLUT0.15; +INSDGI SC; +LEVO25TA PO; -OPTIRAY 320 IV PRN
[2017-03-26 12:23] LABS: BASO % 0.2 %; BASO ABS # 0.02 K/uL (0-0.2); COMPLETE YES; EOS % 1.9 %; HEMATOCRIT 36.7 % (37-47); IG% 0.4 %; LYMPH % 16.9 %; LYMPH ABS # 1.36 K/uL (1.2-3.4); MEAN CELL VOLUME 102.5 fL (80-100); MEAN CORPUSCULAR HEMOGLOBIN 32.7 pg (25-34); MEAN CORPUSCULAR HGB CONC 31.9 g/dl (32-36); MEAN PLATELET VOLUME 11.6 fL (7.4-10.4); MONO % 5.2 %; NEUT % 75.4 %; PLATELET COUNT 140 K/uL (130-400); RED BLOOD COUNT 3.58 M/uL (4.2-5.4); WHITE BLOOD COUNT 8.05 K/uL (4.8-10.8)
[2017-03-26 12:54] LABS: ALB/GLOB RATIO 0.9 (0.9-2); ALKALINE PHOSPHATASE 163 U/L (45-117); ALT/SGPT 37 U/L (12-78); AST/SGOT 25 U/L (15-37); BLOOD UREA NITROGEN 58 mg/dl (7-18); BUN/CREATININE RATIO 7.3 (10-20); CALCIUM 9.5 mg/dl (8.5-10.1); CARBON DIOXIDE 26 mmol/L (21-32); CHLORIDE 101 mmol/L (98-107); GLUCOSE 215 mg/dl (70-99); POTASSIUM 4.4 mmol/L (3.5-5.1); SODIUM 140 mmol/L (136-145)
== END | disposition home or self-care (01) ==
LOC: C.LABPBG 09:33
PROVIDERS: ATTEND Internal Medicine Hematology & Oncology
DX: C43.9 Malignant melanoma of skin, unspecified (principal)

== ENCOUNTER → 2017-04-04 | Outpatient (CLI) | payer OTHER ==
--- NOTE | 2017-04-04 10:17 | DIAGNOSTIC IMAGING REPORT ---
CT SCAN OF THE CHEST WITHOUT IV CONTRAST CLINICAL HISTORY: Melanoma. COMPARISON STUDY: Chest CT scans dated 12/08/16 and 11/15/2015. PET/CT dated 04/14/2015. TECHNIQUE: CT scan of the thorax was performed from the thoracic inlet to the upper abdomen. Images are reviewed in the axial, sagittal, and coronal planes. IV contrast was not administered for this examination as per the referring clinician. CT DOSE: 621.53 mGy.cm FINDINGS: Thyroid: Imaged portions of the thyroid gland are normal in size and attenuation. Thoracic aorta: There is mild atherosclerotic calcification of the thoracic aorta, which is normal in caliber and demonstrates bovine variant arch anatomy. Heart: A 2-lead cardiac pacemaker is present in the right chest wall. The heart is enlarged and without pericardial effusion. The coronary arteries are densely calcified. The main pulmonary arteries are dilated suggesting pulmonary artery hypertension. Lungs and pleural spaces: Evaluation of the lung parenchyma is degraded by respiratory motion artifact. The trachea and central airways are clear. There are numerous subtle groundglass opacities scattered throughout both lungs. No lobar consolidation or pleural effusion is identified. Mediastinum: There is no mediastinal lymphadenopathy. Monica: Not well assessed without IV contrast. Axillae: There is no axillary lymphadenopathy. Upper abdomen: There is a tiny hiatal hernia. An IVC filter is partially visualized at the level of the renal veins. Cholecystectomy clips are noted. The liver appears hyperdense. The partially visualized kidneys are markedly atrophic. Subcentimeter renal cortical lesions likely represent hyperdense cysts but cannot be definitively characterized. Skeletal structures: The skeletal structures are osteopenic. Degenerative change and hyperkyphosis are noted in the thoracic spine. There are mild superior endplate compression deformity is of T5, T6, and T7. No lytic or blastic bony lesions are seen. IMPRESSION: 1. There is no convincing evidence of intrathoracic metastatic disease. 2. There are numerous subtle foci of groundglass opacification seen throughout both lungs. The appearance suggests an infectious/inflammatory pneumonitis. Clinical correlation will be required and a [address] follow-up is recommended for reassessment/ to document resolution. 3. There is no lobar consolidation or pleural effusion. 4. Cardiomegaly and cardiac pacemaker with evidence of pulmonary artery hypertension. 5. The liver appears hyperdense. This is nonspecific and could be seen in the setting of amiodarone therapy or possibly hemochromatosis. Clinical correlation will be required. 6. Additional findings as above. Electronically signed by: Rey Cardoza M.D. 04/04/2017 10:16 AM Dictated Date/Time: 04/04/2017 9:43 AM
== END | disposition home or self-care (01) ==
LOC: C.CTS 09:08
PROVIDERS: ATTEND Internal Medicine Hematology & Oncology
DX: C43.9 Malignant melanoma of skin, unspecified (principal); I51.7 Cardiomegaly; R91.8 Other nonspecific abnormal finding of lung field; Z95.0 Presence of cardiac pacemaker; I10 Essential (primary) hypertension

== ENCOUNTER → 2017-07-04 | Outpatient (CLI) | payer OTHER ==
[~2017-07-04] MED LIST changes: -ALBUAER INH; -CARV3.122 PO; -FLUT0.15; -INSDGI SC; -LEVO25TA PO
[2017-07-04 12:14] LABS: BASO % 0.4 %; BASO ABS # 0.03 K/uL (0-0.2); COMPLETE YES; HEMATOCRIT 42.1 % (37-47); IG% 0.4 %; LYMPH % 12.9 %; LYMPH ABS # 0.95 K/uL (1.2-3.4); MEAN CELL VOLUME 102.2 fL (80-100); MEAN CORPUSCULAR HEMOGLOBIN 32.5 pg (25-34); MEAN CORPUSCULAR HGB CONC 31.8 g/dl (32-36); MEAN PLATELET VOLUME 11.5 fL (7.4-10.4); MONO % 7.6 %; NEUT % 76.7 %; PLATELET COUNT 130 K/uL (130-400); RED BLOOD COUNT 4.12 M/uL (4.2-5.4); WHITE BLOOD COUNT 7.35 K/uL (4.8-10.8)
[2017-07-04 13:48] LABS: ESTIMATED AVERAGE GLUCOSE 169 mg/dl; HA1C FLAG Normal (Normal)
[2017-07-04 14:40] LABS: ALB/GLOB RATIO 0.8 (0.9-2); ALKALINE PHOSPHATASE 151 U/L (45-117); ALT/SGPT 48 U/L (12-78); AST/SGOT 26 U/L (15-37); BLOOD UREA NITROGEN 31 mg/dl (7-18); BUN/CREATININE RATIO 5.1 (10-20); CALCIUM 9.1 mg/dl (8.5-10.1); CARBON DIOXIDE 31 mmol/L (21-32); CHLORIDE 95 mmol/L (98-107); CHOLESTEROL 125 mg/dl (0-200); CHOLESTEROL/HDL RATIO 2.8; GLUCOSE,FASTING 191 mg/dl (70-99); HDL CHOLESTEROL 44 mg/dl; LDL CHOLESTEROL CALCULATED 52 mg/dl; POTASSIUM 4.2 mmol/L (3.5-5.1); SODIUM 135 mmol/L (136-145); TRIGLYCERIDES 146 mg/dl (0-150); VERY LOW DENSITY LIPOPROT CALC 29 mg/dl
== END | disposition home or self-care (01) ==
LOC: C.LABPBG 09:20
PROVIDERS: ATTEND Internal Medicine
DX: E78.5 Hyperlipidemia, unspecified (principal); E11.39 Type 2 diabetes mellitus with other diabetic ophthalmic complication; C43.62 Malignant melanoma of left upper limb, including shoulder

== ENCOUNTER → 2017-08-03 | Outpatient (CLI) | payer OTHER ==
--- NOTE | 2017-08-03 15:35 | DIAGNOSTIC IMAGING REPORT ---
(CHEST) THORAX WITHOUT CLINICAL HISTORY: MELANOMA COMPARISON STUDY: 04/04/2017 CT DOSE: 1485.77 mGycm TECHNIQUE: CT of the thorax was performed from the thoracic inlet to the lung bases. Images are reviewed in the axial, sagittal, and coronal planes. IV contrast was not administered for this examination. A dose lowering technique was utilized adhering to the principles of ALARA. FINDINGS: Thyroid: Imaged portions of the thyroid gland are normal in appearance. Thoracic aorta: The thoracic aorta is normal in course and caliber, noting standard 3 vessel arch anatomy. Heart: There are coronary artery calcifications present. Lungs and pleural spaces: No pleural effusions are visualized. There is slight chronic interstitial thickening with subtle dependent groundglass opacities. There are no pulmonary nodules suspicious for metastatic disease. Mediastinum: There is no mediastinal lymphadenopathy. Monica: There is no evidence of pathologic hilar adenopathy given the limitations of a noncontrast study Axilla: Clear. Upper abdomen: Partially visualized upper abdominal viscera is within normal limits. Skeletal structures: There are no lytic or blastic osseous lesions. IMPRESSION: 1. No CT evidence of intrathoracic metastatic disease. 2. No evidence of pathologic adenopathy 3. Persistent cardiomegaly. 4. Stable subtle interstitial thickening and scattered groundglass opacities Electronically signed by: Danlio Hathaway M.D. 08/03/2017 3:34 PM Dictated Date/Time: 08/03/2017 3:28 PM
--- NOTE | 2017-08-03 15:39 | DIAGNOSTIC IMAGING REPORT ---
ABDOMEN AND PELVIS CT WITH ORAL CONTRAST CT DOSE: HISTORY: MELANOMA TECHNIQUE: Multiaxial CT images of the abdomen and pelvis were performed following the use of oral contrast. A dose lowering technique was utilized adhering to the principles of ALARA. COMPARISON STUDY: Abdomen and pelvis CT 12/08/2016. FINDINGS: Mild interstitial thickening and patchy groundglass densities at the lung bases persist. The heart remains enlarged. Pacemaker wires are noted. No suspicious lytic or blastic osseous lesions. Tiny fat-containing improved over hernia, unchanged. There is a 7 mm soft tissue nodule adjacent to this hernia. This is similar to the prior studies. Slightly nodular contour to the liver consistent with cirrhosis. Cholecystectomy. No definite hepatic or splenic masses on this noncontrast study. The liver remains slightly hyperdense. The unenhanced adrenal glands and pancreas are unremarkable. The kidneys remain atrophic. No hydronephrosis. Punctate stone within the lower pole the left kidney. Stable bilateral renal hyperdense lesions. Dominant hyperdense lesion on the right measures 9 mm. These are technically too small to characterize. Left renal artery stent. IVC filter. No retroperitoneal lymphadenopathy. Normal caliber abdominal aorta. No pelvic lymphadenopathy. Hysterectomy. The bladder is decompressed. No bowel wall thickening or obstruction. A few colonic diverticula. IMPRESSION: No change compared to the prior study. No evidence for metastatic disease within the abdomen or pelvis. Electronically signed by: Rik Vora M.D. 08/03/2017 3:38 PM Dictated Date/Time: 08/03/2017 3:28 PM
== END | disposition home or self-care (01) ==
LOC: C.CTS 12:52
PROVIDERS: ATTEND Internal Medicine Hematology & Oncology
DX: C43.62 Malignant melanoma of left upper limb, including shoulder (principal); I51.7 Cardiomegaly; R91.8 Other nonspecific abnormal finding of lung field

== ENCOUNTER 2017-09-23 12:21 | Emergency (ER) | payer OTHER ==
[2017-09-23 12:42] VITALS: TEMP 36.6
[2017-09-23] MEDS ORDERED: INSDGI SC (13:13)
[2017-09-23] MEDS ORDERED: LEVO25TA PO (13:13)
[2017-09-23] MEDS ORDERED: FLUT0.15 (13:13)
[2017-09-23] MEDS ORDERED: ALBUAER INH (13:13)
[2017-09-23] MEDS ORDERED: CARV3.122 PO (13:13)
[2017-09-23] MEDS ORDERED: LIDODERM (LIDOCAINE) PATCH 5% TD STA (13:19)
[2017-09-23] MEDS ORDERED: FENTANYL CITRATE INJ 50 MCG/1 ML 2 ML VIAL IV ONE ×2 (13:30→15:00)
[2017-09-23 13:41] LABS: BASO % 0.5 %; BASO ABS # 0.03 K/uL (0-0.2); COMPLETE YES; EOS % 1.3 %; HEMATOCRIT 35.4 % (37-47); IG% 0.3 %; LYMPH ABS # 0.86 K/uL (1.2-3.4); MEAN CELL VOLUME 103.2 fL (80-100); MEAN CORPUSCULAR HEMOGLOBIN 32.4 pg (25-34); MEAN CORPUSCULAR HGB CONC 31.4 g/dl (32-36); MEAN PLATELET VOLUME 10.9 fL (7.4-10.4); MONO % 5.9 %; PLATELET COUNT 100 K/uL (130-400); RED BLOOD COUNT 3.43 M/uL (4.2-5.4); WHITE BLOOD COUNT 6.14 K/uL (4.8-10.8)
--- NOTE | 2017-09-23 13:44 | EMERGENCY ROOM VISIT NOTE ---
History First contact with patient: 13:01 Chief Complaint: RIB PAIN Stated Complaint: rib pain History of Present Illness The patient is a 72 year old female who presents to the Emergency Room with complaints of severe right-sided rib pain for the last day. The patient was at home in her scooter. 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 She hit her right rib off of the handlebar. She has had intense pain since. The pain is worse with inspiration and coughing. The patient was seen at an urgent care last evening. She was told that she possibly had a broken rib. She was discharged home. The patient took 2 Percocet last night with no relief of the pain. She denies any other injuries. The patient is no longer on any blood thinners, however she does take a baby aspirin daily. Of note, the patient also said that she had black stools last evening. His is not typical for her. She denies abdominal pain. Review of Systems 10 system review performed and negative unless noted in HPI or below Past Medical/Surgical History Medical Problems: (1) Atrial fibrillation (2) Cardiomegaly (3) Chest pain (4) CHF (congestive heart failure) (5) Diabetic neuropathy (6) DM2 (diabetes mellitus, type 2) (7) End stage renal disease (8) ESRD (end stage renal disease) (9) AC (generalized anxiety disorder) (10) GERD (gastroesophageal reflux disease) (11) Healed or old pulmonary embolism (12) Heart failure (13) HLD (hyperlipidemia) (14) HTN (hypertension) (15) Hyperkalemia (16) Melanoma (17) Obesity hypoventilation syndrome (18) [place] (obstructive sleep apnea) (19) Pacemaker (20) Pulmonary HTN (21) SOB (shortness of breath) (22) TIA (transient ischemic attack) Surgical Problems: (1) H/O total hysterectomy (2) S/P cholecystectomy (3) S/P IVC filter Family History Diabetes mellitus FH: heart disease FATHER MOTHER Kidney disease Social History Smoking Status: Never Smoker Drug Use: none Housing Status: lives alone Occupation Status: retired Current/Historical Medications Scheduled Amiodarone Hcl (Cordarone), 200 MG PO DAILY Aspirin (Aspirin Ec), 1 TAB PO QAM Atorvastatin (Lipitor), 40 MG PO DAILY Calcium Acetate (Phosphate Bin (Calcium Acetate), 1 TAB PO TIDM Carvedilol (Coreg), 3.125 MG PO BID Esomeprazole Magnesium (Nexium), 40 MG PO DAILY Fluticasone Propionate (Nasal) (Flonase Allergy Relief), 2 SPRAYS NA DAILY Gabapentin (Neurontin), 100 MG PO BID Insulin Glargine (Lantus), 10 UNITS SC QPM Insulin Lispro (Human) (Humalog Kwikpen), 5 UNITS SC AC Levothyroxine Sodium (Synthroid), 25 MCG PO DAILY Multiple Vitamin (Multivitamin), 1 TAB PO QAM Nitroglycerin (Nitrostat), 0.4 MG UT PRN Sertraline Hcl (Zoloft), 100 MG PO HS Scheduled PRN Acetaminophen (Tylenol Extra Strength), 1 TAB PO Q4HPRN PRN for Pain Albuterol Sulfate (Proventil Hfa), 2 PUFF INH Q6H PRN for Wheezing Clonazepam (Klonopin), 0.25 MG PO HS PRN for Anxiety Guaifenesin (Organ-I Nr), 200 MG PO Q8H PRN for Cough Home O2 Therapy (Oxygen), 2 LITERS NA HS PRN for AND WITH EXERTION Hydrocodone/Acetaminophen 5MG/325MG (Wayne 5MG/325MG), 1 TABLET PO Q12 PRN for Pain Ipratropium [place] (Ipratropium Lost[place]), 1 VIAL NEB QID PRN for SOB/Wheezing Lorazepam (Ativan), 0.5 MG PO TID PRN for Anxiety/Agitation Ranitidine (Zantac), 150 MG PO BID PRN for Heartburn Physical Exam Vital Signs Date Time Temp Pulse Resp B/P (MAP) Pulse Ox O2 Delivery O2 Flow Rate FiO2 09/23/17 16:45 78 22 124/69 98 Room Air 09/23/17 14:03 70 18 126/69 98 Nasal Cannula 2.0 09/23/17 13:39 70 16 131/85 95 Nasal Cannula 2.0 09/23/17 13:01 70 09/23/17 12:42 36.6 69 18 131/85 94 Room Air Physical Exam VITALS: Vitals are noted on the nurse's note and reviewed by myself. Vital signs stable. GENERAL: 72-year-old female, in no acute distress SKIN: The skin was without rashes, erythema, edema, or bruising. HEAD: Normocephalic atraumatic. MOUTH: Mucous membranes slightly dry. NECK: No JVD. HEART: Regular rate and rhythm without murmurs gallops or rubs. LUNGS: Few crackles at the bases left greater than right. No rhonchi or wheezing. Tenderness to palpation underneath the right breast. No crepitus noted. ABDOMEN: Positive bowel sounds x 4.Soft, nontender, without organomegaly. No guarding or rebound tenderness. MUSCULOSKELETAL: No muscle atrophy, erythema, or edema noted. Strength 5/5 throughout. NEURO: Patient was alert and oriented to person place and time. Normal sensation to touch. No focal neurological deficits. Medical Decision & Procedures ER Provider Diagnostic Interpretation: CT chest IMPRESSION: 1. No acute intrathoracic findings 2. No evidence of focal pulmonary consolidation 3. No evidence of pneumothorax 4. No acute fractures identified. 5. Stable interstitial thickening Electronically signed by: Danilo Hathaway M.D. 09/23/2017 2:01 PM Dictated Date/Time: 09/23/2017 1:57 PM The status of this report is Signed. Draft = Not yet reviewed or approved by Radiologist. Signed = Reviewed and approved by Radiologist. Laboratory Results 09/23/17 13:30 Red Blood Count 3.43, Mean Corpuscular Volume 103.2, Mean Corpuscular Hemoglobin 32.4, Mean Corpuscular Hemoglobin Concent 31.4, Mean Platelet Volume 10.9, Neutrophils (%) (Auto) 78.0, Lymphocytes (%) (Auto) 14.0, Monocytes (%) ( Auto) 5.9, Eosinophils (%) (Auto) 1.3, Basophils (%) (Auto) 0.5, Neutrophils # ( Auto) 4.79, Lymphocytes # (Auto) 0.86, Monocytes # (Auto) 0.36, Eosinophils # ( Auto) 0.08, Basophils # (Auto) 0.03 09/23/17 13:30 Test 09/23/17 13:30 White Blood Count 6.14 K/uL (4.8-10.8) Red Blood Count 3.43 M/uL (4.2-5.4) Hemoglobin 11.1 g/dL (12.0-16.0) Hematocrit 35.4 % (37-47) Mean Corpuscular Volume 103.2 fL (80-100) Mean Corpuscular Hemoglobin 32.4 pg (25-34) Mean Corpuscular Hemoglobin Concent 31.4 g/dl (32-36) Platelet Count 100 K/uL (130-400) Mean Platelet Volume 10.9 fL (7.4-10.4) Neutrophils (%) (Auto) 78.0 % Lymphocytes (%) (Auto) 14.0 % Monocytes (%) (Auto) 5.9 % Eosinophils (%) (Auto) 1.3 % Basophils (%) (Auto) 0.5 % Neutrophils # (Auto) 4.79 K/uL (1.4-6.5) Lymphocytes # (Auto) 0.86 K/uL (1.2-3.4) Monocytes # (Auto) 0.36 K/uL (0.11-0.59) Eosinophils # (Auto) 0.08 K/uL (0-0.5) Basophils # (Auto) 0.03 K/uL (0-0.2) RDW Standard Deviation 56.9 fL (36.4-46.3) RDW Coefficient of Variation 15.2 % (11.5-14.5) Immature Granulocyte % (Auto) 0.3 % Immature Granulocyte # (Auto) 0.02 K/uL (0.00-0.02) Anion Gap 8.0 mmol/L (3-11) Estimated GFR () 8.1 Estimated GFR (Non- 7.0 BUN/Creatinine Ratio 6.8 (10-20) Calcium Level 8.8 mg/dl (8.5-10.1) Total Bilirubin 0.5 mg/dl (0.2-1) Aspartate Amino Transf (AST/SGOT) 31 U/L (15-37) Alanine Aminotransferase (ALT/SGPT) 31 U/L (12-78) Alkaline Phosphatase 185 U/L (45-117) Total Protein 7.3 gm/dl (6.4-8.2) Albumin 3.4 gm/dl (3.4-5.0) Globulin 3.9 gm/dl (2.5-4.0) Albumin/Globulin Ratio 0.9 (0.9-2) Medications Administered Medications (Trade) Dose Ordered Sig/Tyesha Route Start Time Stop Time Status Last Admin Dose Admin Fentanyl Citrate (Fentanyl Inj) 25 mcg NOW ONCE IV 09/23/17 13:30 09/23/17 13:31 DC 09/23/17 13:37 25 MCG Lidocaine (Lidoderm Patch 5%) 1 patch ONE STAT TD 09/23/17 13:19 09/23/17 13:21 DC 09/23/17 13:36 1 PATCH Fentanyl Citrate (Fentanyl Inj) 25 mcg NOW ONCE IV 09/23/17 15:00 09/23/17 15:01 DC 09/23/17 15:24 25 MCG Fentanyl (Duragesic Patch) 25 mcg TODAY@1535 TD 09/23/17 15:35 09/23/17 17:27 DC 09/23/17 16:55 25 MCG ED Course Patient was seen and examined Vital signs including blood pressure were reviewed medications list was verified with patient Labs were obtained, and a saline lock was established The patient was given fentanyl 25 g IV. A lidocaine patch was applied under the breast. Imaging was performed Upon reevaluation, the patient was still complaining of pain, and given an additional dose of fentanyl 25 g IV The workup was reviewed. The patient was also seen and examined by my supervising physician. We discussed the findings with the family and the patient. They voiced understanding. Prior to discharge, the patient was given a fentanyl patch 25 g. She was observed for approximately 30 minutes. I reviewed discharge instructions the patient. They voiced understanding and had no further questions. Medical Decision Differential diagnosis: Fractured rib, pneumothorax, hemothorax, GI bleed This patient is a 72-year-old female that presents to emergency department with right anterior rib pain after falling against her handlebar on her scooter. There was no other trauma. The patient has had poor pain control at home. On exam, she is tender under the right breast. Her vital signs are stable. She has no other signs of trauma. Her abdomen is benign. CT of the chest was performed and no abnormalities were noted. The patient was given low-dose fentanyl for pain control. She did require an additional dose. The patient also mentioned dark stools yesterday. A rectal was performed. She is guaiac negative. Her hemoglobin is stable. I do not think she needs a further GI workup. The patient was offered possible rehabilitation placement. She declined. She already has help lined up at home. She additionally has family that lives close by. The patient was given a fentanyl patch 25 g for additional pain control. She was instructed to continue taking her Percocet 1 every 4 hours as needed. If she needs additional pain relief, she may take 2 every 4 hours as needed. Of course, NSAIDs were advised against given her history of end-stage kidney disease. I believe she is stable to be discharged home with close follow-up. My attending was in agreement with this plan in addition to the patient and the family. She was discharged in good condition This chart was completed in part utilizing [employer] Speech Voice Recognition software. Attempts were made to minimize the grammatical errors, random word insertions, pronoun errors and incomplete sentences. Any formal questions or concerns about the content, text or information contained within the body of this dictation should be directly addressed to the provider for clarification. Medication Reconcilliation Current Medication List: was personally reviewed by me Blood Pressure Screening Patient's blood pressure: Normal blood pressure Impression Primary Impression: Rib contusion Departure Information Dispostion Home / Self-Care Condition GOOD Referrals Subhash Mo M.D. (PCP) Patient Instructions [facility] Additional Instructions You were evaluated in the emergency department for rib pain. This pain may likely last a few weeks. A fentanyl patch has been applied. It is 25 g in strength. This is good for 3 days. Please continue Percocet. You may have 1-2 tablets every 4 hours as needed for discomfort. Please do not take this medication with Tylenol as it contains acetaminophen Please follow-up with your primary care physician as soon as possible. Call tomorrow morning for a follow-up appointment. return to the emergency department with a new or concerning symptoms, especially any increased shortness of breath or sudden, severe pain
--- NOTE | 2017-09-23 14:03 | DIAGNOSTIC IMAGING REPORT ---
(CHEST) THORAX WITHOUT CLINICAL HISTORY: Right-sided chest pain. Chest trauma. MELANOMA COMPARISON STUDY: 08/03/2017 CT DOSE: 580.38 mGy.cm TECHNIQUE: CT of the thorax was performed from the thoracic inlet to the lung bases. Images are reviewed in the axial, sagittal, and coronal planes. IV contrast was not administered for this examination. A dose lowering technique was utilized adhering to the principles of ALARA. FINDINGS: Thyroid: Imaged portions of the thyroid gland are normal in appearance. Thoracic aorta: The thoracic aorta is normal in course and caliber, noting standard 3 vessel arch anatomy. Heart: There are coronary artery calcifications. The heart is enlarged. There is a right subclavian dual-chamber central venous pacemaker. Lungs and pleural spaces: No pleural effusions are visualized. There is no evidence of pneumothorax. There is no evidence of pulmonary contusion. There are no suspicious bony nodules. There is scattered areas of interstitial thickening. There is minor basilar atelectasis. Mediastinum: There is no mediastinal lymphadenopathy. Monica: There is no evidence of pathologic hilar adenopathy given the limitations of a noncontrast study Axilla: Clear. Upper abdomen: There are subcentimeter right renal cysts and hyperdense cysts. The apex of an IVC filter is visualized. Skeletal structures: No fractures are visualized. IMPRESSION: 1. No acute intrathoracic findings 2. No evidence of focal pulmonary consolidation 3. No evidence of pneumothorax 4. No acute fractures identified. 5. Stable interstitial thickening Electronically signed by: Danilo Hathaway M.D. 09/23/2017 2:01 PM Dictated Date/Time: 09/23/2017 1:57 PM
[2017-09-23 14:12] LABS: ALB/GLOB RATIO 0.9 (0.9-2); ALKALINE PHOSPHATASE 185 U/L (45-117); ALT/SGPT 31 U/L (12-78); AST/SGOT 31 U/L (15-37); BLOOD UREA NITROGEN 37 mg/dl (7-18); BUN/CREATININE RATIO 6.8 (10-20); CALCIUM 8.8 mg/dl (8.5-10.1); CARBON DIOXIDE 32 mmol/L (21-32); CHLORIDE 97 mmol/L (98-107); CREATININE 5.53 mg/dl (0.60-1.20); GLUCOSE 242 mg/dl (70-99); POTASSIUM 3.8 mmol/L (3.5-5.1); SODIUM 137 mmol/L (136-145)
[2017-09-23] MEDS ORDERED: FENTANYL 25 MCG/HR TDSY TD SCH (15:35)
[2017-09-23] MEDS ORDERED: FENTANYL 50 MCG/HR TDSY TD SCH (15:45)
[2017-09-23 16:45] VITALS: BP 124/69; PULSE 78; O2SAT 98
== END 2017-09-23 17:06 | disposition home or self-care (01) ==
LOC: EDBD 12:21 → C.EDC 12:22
DX: S20.211A Contusion of right front wall of thorax, initial encounter (principal); E11.9 Type 2 diabetes mellitus without complications; F41.9 Anxiety disorder, unspecified; I12.9 Hypertensive chronic kidney disease with stage 1 through stage 4 chronic kidney disease, or unspecified chronic kidney disease; E78.5 Hyperlipidemia, unspecified; N18.6 End stage renal disease; G47.33 Obstructive sleep apnea (adult) (pediatric); K21.9 Gastro-esophageal reflux disease without esophagitis; Z79.4 Long term (current) use of insulin; Z79.82 Long term (current) use of aspirin; Z79.899 Other long term (current) drug therapy; Z86.73 Personal history of transient ischemic attack (TIA), and cerebral infarction without residual deficits; Z86.711 Personal history of pulmonary embolism; Z82.49 Family history of ischemic heart disease and other diseases of the circulatory system; Z83.3 Family history of diabetes mellitus; Z84.1 Family history of disorders of kidney and ureter; W22.8XXA Striking against or struck by other objects, initial encounter

== ENCOUNTER 2017-10-28 14:11 | Emergency (ER) | payer OTHER ==
[~2017-10-28] VITALS: Ht 152.4 cm; Wt 84.0 kg
[~2017-10-28 14:11] MED LIST changes: -ACET-1257 PO; +ALBUAER INH; -ALLO100T PO; -AMIO200T4 PO; -ASPI81TA28 PO; +CARV3.122 PO; +FLUT0.15; +INSDGI SC; -INSUINJ4 SQ; +LEVO25TA PO; -LORA-741 PO; -MULTTAB58 PO; -NITR0.4S UT; -SERT100T PO; -XPNINS INH
[2017-10-28 14:27] VITALS: TEMP 36.5; Ht 152.4 cm; Wt 84.0 kg
[2017-10-28] MEDS ORDERED: SERT100T PO (15:16)
[2017-10-28] MEDS ORDERED: LORA-741 PO (15:16)
[2017-10-28] MEDS ORDERED: ASPI81TA28 PO (15:16)
[2017-10-28] MEDS ORDERED: NITR0.4S UT (15:16)
[2017-10-28] MEDS ORDERED: ACET-1257 PO (15:16)
[2017-10-28] MEDS ORDERED: MULTTAB58 PO (15:16)
--- NOTE | 2017-10-28 15:41 | DIAGNOSTIC IMAGING REPORT ---
L-SPINE MIN 4 VIEWS ROUTINE CLINICAL HISTORY: Low back pain. Right leg radiculopathy. History of melanoma. COMPARISON STUDY: CT scan dated 03/31/2016 FINDINGS: There are mildly prominent left mid abdominal small bowel loops, likely representing an ileus. There are surgical clips within the right upper quadrant consistent with a prior cholecystectomy. There is an IVC filter visualized. There is a left renal artery stent present. The bones are osteopenic. No acute fractures or traumatic subluxations are visualized. There are degenerative changes with disc space narrowing at the L4-5 and L5-S1 levels. IMPRESSION: 1. No acute fractures 2. Osteopenia 3. Degenerative changes most pronounced at the L4-5 and L5-S1 levels. Electronically signed by: Danilo Hathaway M.D. 10/28/2017 3:40 PM Dictated Date/Time: 10/28/2017 3:38 PM
[2017-10-28 15:52] LABS: BASO % 0.3 %; BASO ABS # 0.02 K/uL (0-0.2); COMPLETE YES; EOS % 1.1 %; HEMATOCRIT 39.5 % (37-47); IG% 0.2 %; LYMPH % 14.9 %; LYMPH ABS # 0.94 K/uL (1.2-3.4); MEAN CELL VOLUME 102.9 fL (80-100); MEAN CORPUSCULAR HEMOGLOBIN 33.6 pg (25-34); MEAN CORPUSCULAR HGB CONC 32.7 g/dl (32-36); MEAN PLATELET VOLUME 10.9 fL (7.4-10.4); MONO % 7.3 %; NEUT % 76.2 %; PLATELET COUNT 102 K/uL (130-400); RED BLOOD COUNT 3.84 M/uL (4.2-5.4)
[2017-10-28] MEDS ORDERED: KLN5X PO (15:54)
[2017-10-28 16:27] LABS: ALB/GLOB RATIO 0.9 (0.9-2); BUN/CREATININE RATIO 5.9 (10-20); CALCIUM 9.3 mg/dl (8.5-10.1); MAGNESIUM 2.4 mg/dl (1.8-2.4)
--- NOTE | 2017-10-28 16:30 | EMERGENCY ROOM VISIT NOTE ---
ED Visit Note First contact with patient: 14:50 32-year-old female with right-sided back and hip pain was fully evaluated by Allyson Gonzalez PA-C. Please see her note. I also independently evaluated the patient. Symptoms are most consistent with sciatica. The patient is a dialysis patient. The patient was given a prescription for Percocet. She will discuss with her project management analyst whether she is able to take NSAIDs.
[2017-10-28] MEDS ORDERED: DIAZEPAM INJ 5 MG/ML 2 ML CARP IV STA (16:37)
[2017-10-28] MEDS ORDERED: FLEXERIL HOME PACK 10 MG VIAL PO STA (16:38)
[2017-10-28] MEDS ORDERED: CYCL5TAB PO (16:42)
[2017-10-28] MEDS ORDERED: PERCOCET HOME PACK PO ONE (16:45)
--- NOTE | 2017-10-28 16:45 | EMERGENCY ROOM VISIT NOTE ---
ED Visit Note First contact with patient: 14:50 CHIEF COMPLAINT: Low back pain with radiation down right leg HISTORY OF PRESENT ILLNESS: This 72-year-old female patient presents to the emergency department, ambulatory, complaining of pain in the low back which began yesterday. The patient states she was at dialysis yesterday, where she sits in a recliner. She states when she got up to leave dialysis, she began experiencing pain in the right side of her low back, radiating down the posterior aspect of her right leg. She describes the pain as an aching sensation. She did take some Percocet yesterday, but states this is not significantly help. The patient denies any injury. She describes the pain as throbbing and sharp, worse today than it was yesterday. She denies any paresthesias. Pain is worse with movement or any position changes, and she is unable to get comfortable. The patient does report a history of spinal stenosis and degenerative joint disease and arthritis in her low back. She denies any injury or surgeries in the lumbar spine. The patient has not fallen. The pain has been progressively worsening since yesterday. The patient rates the pain a 10/10. The patient denies any loss of control of their bowel or bladder functions. There has been no leg numbness or weakness, and no change in sensation. No nausea or vomiting or abdominal pain. No chest pain or shortness of breath. The patient suffers from renal failure and does not urinate. She has dialysis three times per week. She was advised to take no NSAIDs due to her chronic kidney failure. REVIEW OF SYSTEMS: A 10 system review of systems was performed with positives and pertinent negatives listed in the history of present illness. All other systems were reviewed and are negative. ALLERGIES: Adhesives, morphine, Coumadin, iodine MEDICATIONS: Please see list. PMH: Diabetes, melanoma, kidney failure, hypertension, heart disease, pacemaker SOCIAL HISTORY: The patient lives locally with family. She denies drug, alcohol , tobacco use. PHYSICAL EXAM: VITALS: Vitals are noted on the nurse's note and reviewed by myself. Vital signs stable. GENERAL: This is a 72-year-old white female, in no acute distress, nondiaphoretic, well-developed well-nourished. SKIN: The skin was without rashes, erythema, edema, or bruising. Capillary refill less than 2 seconds. NECK: Supple without nuchal rigidity. No cervical spine tenderness. No paraspinous muscle tenderness. HEART: Regular rate and rhythm without murmurs gallops or rubs. LUNGS: Clear to auscultation bilaterally without wheezes, rales or rhonchi. ABDOMEN: Positive bowel sounds x 4. Normal tympanic percussion. Soft, nontender, without masses or organomegaly. العلي sign negative. MUSCULOSKELETAL: No muscle atrophy, erythema, or edema noted of the back. There is tenderness over the lumbar spinous processes on the right in the area of L4 through L5. There is tenderness over the paraspinous muscles on the right. There is no tenderness over the thoracic spine or paraspinous muscles. There are right side lumbar muscle spasms present. The patient is slow to move around with maximum tenderness with position changes. Positive straight leg raise test on the right. NEURO: Patient was alert and oriented to person place and time. Normal sensation to light and sharp touch. Deep tendon reflexes 2+ in the lower extremities. Dorsalis pedis pulse 2+ bilaterally. Strength 5/5 and equal in the bilateral lower extremities. RADIOLOGY: L-SPINE MIN 4 VIEWS ROUTINE CLINICAL HISTORY: Low back pain. Right leg radiculopathy. History of melanoma. COMPARISON STUDY: CT scan dated 03/31/2016 FINDINGS: There are mildly prominent left mid abdominal small bowel loops, likely representing an ileus. There are surgical clips within the right upper quadrant consistent with a prior cholecystectomy. There is an IVC filter visualized. There is a left renal artery stent present. The bones are osteopenic. No acute fractures or traumatic subluxations are visualized. There are degenerative changes with disc space narrowing at the L4-5 and L5-S1 levels. IMPRESSION: 1. No acute fractures 2. Osteopenia 3. Degenerative changes most pronounced at the L4-5 and L5-S1 levels. Electronically signed by: Danilo Hathawya M.D. 10/28/2017 3:40 PM Dictated Date/Time: 10/28/2017 3:38 PM EMERGENCY DEPARTMENT COURSE: The patient was seen and evaluated as above. She presents with right side low back pain with radiculopathy down the posterior aspect of the right leg, consistent with sciatica. Baseline labs and imaging were ordered due to her history of melanoma to rule out metastasis. The patient' s labs were not concerning for acute findings. Her Creatinine was elevated at 6.00, however this is consistent with her Creatinine normally. Her CBC was without leukocytosis, anemia, thrombocytopenia. I did speak with Dr. Perrin regarding the patient's condition and for guidance regarding management. He did see and evaluate the patient. While antiinflammatory medications are the mainstay of treatment for sciatica, the patient will be treated for the muscle spasms and with pain medication until she can speak with her delivery lead regarding what is safe for her to use due to her chronic renal failure. The patient was given Valium IV while here in the ED with her son to drive her. The patient did desaturate to 76% after being given the medication so was placed on 4L O2 via NC. The patient is chronically on 2L O2 via NC at home. She was monitored in the ED and O2 was decreased after approximately 1 hour and the patient did maintain her O2 saturation. I did re-evaluate the patient and she states she is feeling sleepy, however her muscle spasms are gone and her pain has completely improved. The patient was given home packs of medication. She was feeling significantly better and was ready to go home. Discharge instructions were reviewed and the patient was discharged home in good condition with her son driving. I attest that I have personally reviewed the patient's current medication list. Patient was found to have normal blood pressure on screening and does not require follow-up. DIFFERENTIAL DIAGNOSIS: Strain, sciatica, SI joint dysfunction, malignancy, metastasis, electrolyte abnormality, Nephrolithiasis, ureteral calculus, hydronephrosis, pyelonephritis, malignancy, and others DIAGNOSIS: SI joint dysfunction, sciatica Problem List Medical Problems: (1) Atrial fibrillation Status: Chronic (2) Cardiomegaly Status: Chronic (3) Diabetic neuropathy Status: Chronic (4) DM2 (diabetes mellitus, type 2) Status: Chronic (5) End stage renal disease Status: Chronic (6) AC (generalized anxiety disorder) Status: Chronic (7) GERD (gastroesophageal reflux disease) Status: Chronic (8) Healed or old pulmonary embolism Status: Chronic (9) Heart failure Status: Chronic (10) HLD (hyperlipidemia) Status: Chronic (11) HTN (hypertension) Status: Chronic (12) Melanoma Status: Chronic (13) Obesity hypoventilation syndrome Status: Chronic (14) [place] (obstructive sleep apnea) Status: Chronic (15) Pacemaker Status: Chronic (16) Pulmonary HTN Status: Chronic (17) TIA (transient ischemic attack) Status: Chronic Surgical Problems: (1) H/O total hysterectomy Status: Chronic (2) S/P cholecystectomy Status: Chronic (3) S/P IVC filter Status: Chronic Current/Historical Medications Scheduled Amiodarone Hcl (Cordarone), 200 MG PO DAILY Aspirin (Aspirin Ec), 1 TAB PO QAM Atorvastatin (Lipitor), 40 MG PO QPM Calcium Acetate (Phosphate Bin (Calcium Acetate), 1 TAB PO TIDM Carvedilol (Coreg), 3.125 MG PO BID Clonazepam (Clonazepam), 0.25 MG PO 3XWK Cyclobenzaprine Hcl (Flexeril), 5 MG PO TID Esomeprazole Magnesium (Nexium), 40 MG PO DAILY Fluticasone Propionate (Nasal) (Flonase Allergy Relief), 2 SPRAYS NA DAILY Gabapentin (Neurontin), 100 MG PO HS Insulin Glargine (Lantus), 10 UNITS SC QPM Insulin Lispro (Human) (Humalog Kwikpen), 5 UNITS SC AC Levothyroxine Sodium (Synthroid), 25 MCG PO DAILY Multiple Vitamin (Multivitamin), 1 TAB PO QAM Nitroglycerin (Nitrostat), 0.4 MG UT PRN Sertraline Hcl (Zoloft), 100 MG PO HS Scheduled PRN Acetaminophen (Tylenol Extra Strength), 2-4 TAB PO Q4HPRN PRN for Pain Albuterol Sulfate (Proventil Hfa), 2 PUFF INH Q6H PRN for Wheezing Clonazepam (Klonopin), 0.25 MG PO HS PRN for Anxiety Guaifenesin (Organ-I Nr), 200 MG PO Q8H PRN for Cough Ipratropium [place] (Ipratropium [place]), 1 VIAL NEB QID PRN for SOB/Wheezing Lorazepam (Ativan), 0.5 MG PO TID PRN for Anxiety/Agitation Ranitidine (Zantac), 150 MG PO BID PRN for Heartburn Allergies Coded Allergies: Iodinated Diagnostic Agents (Verified Allergy, Mild, "Contrast Media" -- unknown rxn, 09/23/17) Adhesives (Verified Allergy, Unknown, "Tape" -- unknown rxn, 09/23/17) Morphine (Unverified Allergy, Unknown, UNKNOWN, 09/23/17) Warfarin (Unverified Allergy, Unknown, HYPERSENSITIVITY/BLEEDING, 09/23/17 ) Tomato (Verified Adverse Reaction, Intermediate, GI SYMPTOMS, 09/23/17) Tomato products cause diarrhea. Vital Signs Date Time Temp Pulse Resp B/P (MAP) Pulse Ox O2 Delivery O2 Flow Rate FiO2 10/28/17 18:28 70 16 118/64 93 10/28/17 18:10 70 20 118/64 97 Nasal Cannula 2.0 10/28/17 18:10 98 Nasal Cannula 2.0 10/28/17 16:37 70 20 131/66 94 Room Air 10/28/17 14:27 36.5 70 20 108/65 93 Room Air Laboratory Results 10/28/17 15:44 Red Blood Count 3.84, Mean Corpuscular Volume 102.9, Mean Corpuscular Hemoglobin 33.6, Mean Corpuscular Hemoglobin Concent 32.7, Mean Platelet Volume 10.9, Neutrophils (%) (Auto) 76.2, Lymphocytes (%) (Auto) 14.9, Monocytes (%) ( Auto) 7.3, Eosinophils (%) (Auto) 1.1, Basophils (%) (Auto) 0.3, Neutrophils # ( Auto) 4.80, Lymphocytes # (Auto) 0.94, Monocytes # (Auto) 0.46, Eosinophils # ( Auto) 0.07, Basophils # (Auto) 0.02 10/28/17 15:44 Test 10/28/17 15:44 White Blood Count 6.30 K/uL (4.8-10.8) Red Blood Count 3.84 M/uL (4.2-5.4) Hemoglobin 12.9 g/dL (12.0-16.0) Hematocrit 39.5 % (37-47) Mean Corpuscular Volume 102.9 fL (80-100) Mean Corpuscular Hemoglobin 33.6 pg (25-34) Mean Corpuscular Hemoglobin Concent 32.7 g/dl (32-36) Platelet Count 102 K/uL (130-400) Mean Platelet Volume 10.9 fL (7.4-10.4) Neutrophils (%) (Auto) 76.2 % Lymphocytes (%) (Auto) 14.9 % Monocytes (%) (Auto) 7.3 % Eosinophils (%) (Auto) 1.1 % Basophils (%) (Auto) 0.3 % Neutrophils # (Auto) 4.80 K/uL (1.4-6.5) Lymphocytes # (Auto) 0.94 K/uL (1.2-3.4) Monocytes # (Auto) 0.46 K/uL (0.11-0.59) Eosinophils # (Auto) 0.07 K/uL (0-0.5) Basophils # (Auto) 0.02 K/uL (0-0.2) RDW Standard Deviation 53.8 fL (36.4-46.3) RDW Coefficient of Variation 14.3 % (11.5-14.5) Immature Granulocyte % (Auto) 0.2 % Immature Granulocyte # (Auto) 0.01 K/uL (0.00-0.02) Anion Gap 7.0 mmol/L (3-11) Est Creatinine Clear Calc Drug Dose 7.9 ml/min Estimated GFR () 7.4 Estimated GFR (Non- 6.4 BUN/Creatinine Ratio 5.9 (10-20) Calcium Level 9.3 mg/dl (8.5-10.1) Magnesium Level 2.4 mg/dl (1.8-2.4) Total Bilirubin 0.5 mg/dl (0.2-1) Aspartate Amino Transf (AST/SGOT) 28 U/L (15-37) Alanine Aminotransferase (ALT/SGPT) 33 U/L (12-78) Alkaline Phosphatase 217 U/L (45-117) Total Protein 7.5 gm/dl (6.4-8.2) Albumin 3.5 gm/dl (3.4-5.0) Globulin 4.0 gm/dl (2.5-4.0) Albumin/Globulin Ratio 0.9 (0.9-2) Medications Administered Medications (Trade) Dose Ordered Sig/Tyesha Route Start Time Stop Time Status Last Admin Dose Admin Diazepam (Valium Inj) 10 mg NOW STAT IV 10/28/17 16:37 10/28/17 16:38 DC 10/28/17 16:46 10 MG Cyclobenzaprine HCl (FLEXERIL 10MG Home Pack) 1 homepack UD STAT PO 10/28/17 16:38 10/28/17 16:41 DC 10/28/17 16:47 1 HOMEPACK Oxycodone/ Acetaminophen (Percocet 5/ 325MG Home Pack) 1 homepack UD ONCE PO 10/28/17 16:45 10/28/17 16:46 DC 10/28/17 16:47 1 HOMEPACK Departure Information Impression Primary Impression: SI (sacroiliac) joint dysfunction Additional Impression: Sciatica Dispostion Home / Self-Care Condition GOOD Prescriptions Cyclobenzaprine Hcl (FLEXERIL) 5 Mg Tab 5 MG PO TID, #15 TAB PRN Prov: Allyson Gonzalez PA-C 10/28/17 Referrals Subhash Mo M.D. (PCP) Patient Instructions ED Sciatica, My [facility] Additional Instructions You have been treated in the Emergency Department for Back Pain. You have received pain medicine in the emergency department which impairs your ability to operate a vehicle. It is illegal for you to drive after receiving these medicines. You have been prescribed Percocet to be used for pain control. This is a narcotic medication. You cannot drive or consume alcohol while on this medicine. This medicine should only be used for pain that cannot be controlled with [id number] pain medicines. You have been prescribed Flexeril (cyclobenzaprine) 1-2 tabs orally, three times per day. Do NOT exceed 30 mg (6 tabs) per day. Take your first dose at bedtime as it can make you drowsy. Always take all medications as prescribed. *Note the Home pack for Flexeril is for 10mg tablets. Take 0.5-1 tablet orally three times per day of this home pack. Consult your delivery lead to discuss if you are able to take any NSAIDs or Steroids for inflammation and pain. Use your walker to help with ambulation until you are feeling more steady on your feet. If this is an acute injury, ice can be applied to the area of pain for the first 3 days to help decrease pain and inflammation. After the first 3 days, a heating pad can be used over the area for continued soothing relief. You should schedule a follow-up appointment in 2-3 days with your Primary Care Provider for further evaluation and treatment of your back pain. Return to the Emergency Department if your current symptoms worsen despite treatment course outlined above, or if you develop any of the following symptoms : intractable pain despite aforementioned treatment course, loss of control of your bowel or bladder, numbness or tingling in your groin, or development of a fever. Problem Qualifiers Additional Impression: Sciatica Laterality: right Qualified Codes: M54.31 - Sciatica, right side
[2017-10-28 18:10] VITALS: O2SAT 98
[2017-10-28 18:28] VITALS: BP 118/64; PULSE 70; O2SAT 93
[2017-10-28] MEDS ORDERED: AMIO200T4 PO (21:38)
[2017-11-03] MEDS ORDERED: IPRASOL4 INH (23:03)
== END 2017-10-28 18:30 | disposition home or self-care (01) ==
LOC: C.EDB 14:12
DX: M53.3 Sacrococcygeal disorders, not elsewhere classified (principal); M54.41 Lumbago with sciatica, right side; M48.061 Spinal stenosis, lumbar region without neurogenic claudication; M47.26 Other spondylosis with radiculopathy, lumbar region; E11.40 Type 2 diabetes mellitus with diabetic neuropathy, unspecified; I11.0 Hypertensive heart disease with heart failure; I50.9 Heart failure, unspecified; Z95.0 Presence of cardiac pacemaker; Z99.81 Dependence on supplemental oxygen; I48.91 Unspecified atrial fibrillation; E11.22 Type 2 diabetes mellitus with diabetic chronic kidney disease; N18.6 End stage renal disease; F41.1 Generalized anxiety disorder; K21.9 Gastro-esophageal reflux disease without esophagitis; E78.5 Hyperlipidemia, unspecified; C43.9 Malignant melanoma of skin, unspecified; E66.2 Morbid (severe) obesity with alveolar hypoventilation; I27.20 Pulmonary hypertension, unspecified; Z99.2 Dependence on renal dialysis; Z86.718 Personal history of other venous thrombosis and embolism; Z86.73 Personal history of transient ischemic attack (TIA), and cerebral infarction without residual deficits; Z90.710 Acquired absence of both cervix and uterus; Z95.828 Presence of other vascular implants and grafts; Z79.82 Long term (current) use of aspirin; Z79.4 Long term (current) use of insulin

== ENCOUNTER 2017-11-03 22:09 | Emergency (ER) | payer OTHER ==
[~2017-11-03] VITALS: Ht 152.4 cm; Wt 89.7 kg
[~2017-11-03 22:09] MED LIST changes: +ACET-1257 PO; +AMIO200T4 PO; +ASPI81TA28 PO; -CLON0.5T3 PO; +CLON0.5T9 PO; +CYCL5TAB PO; +GABA-1693 PO; -GABA1CAP PO; -GUAI1TAB68 PO; -HYDR-5688 PO; +KLN5X PO; +LORA-741 PO; +MULTTAB58 PO; +NITR0.4S UT; +ORG200 PO; -OXGN; +RANI150T85 PO; +SERT100T PO; -ZNTT/150 PO
[2017-11-03 22:14] VITALS: Ht 152.4 cm; Wt 89.7 kg
[2017-11-03] MEDS ORDERED: ACETAMINOPHEN 500 MG TAB PO STA (22:26)
--- NOTE | 2017-11-03 22:34 | EMERGENCY ROOM VISIT NOTE ---
History Report prepared by Nic: Joby Hurtado Under the Supervision of: Dr. Fabricio Chase M.D. First contact with patient: 22:17 Chief Complaint: FALL Stated Complaint: FALL, R ANKLE PAIN & HIP PAIN History of Present Illness The patient is a 72 year old female who presents to the Emergency Room with complaints of constant right ankle pain that began prior to arrival due to a fall that happened in her kitchen. Per nurse, he states that the patient was trying to reach for an item in her kitchen and the patient thought there was another step on her stool when there was not. Patient states she fell straight to the ground. She does not know if she hit her head but notes that her " glasses were twisted" when she got up. She was unable to get up by herself. Patient states she scooted to her recliner where she used her "button" to call EMS. She states she did not pass out. She has associated symptoms of neck pain when twisting and hip pain. She denies shortness of breath and abdominal pain. Patient states she takes aspirin daily. She states she used to take Coumadin, but stopped due to a pericardial effusion. She notes that she was on Coumadin because of a history of blood clots. She adds that she has been on Dialysis for past 6 years and has never missed an appointment. Patient adds that she bleeds easily. Pertinent medical history includes spinal stenosis and chronic back pain. She adds that at home she uses oxygen at night. Source of History: patient Onset: Prior to arrival Position: ankle (right) Timing: constant Associated Symptoms: + neck pain, No SOB, No abdominal pain Note: Patient has hip pain. Review of Systems See HPI for pertinent positives and negatives. A total of ten systems were reviewed and were otherwise negative. Past Medical & Surgical Medical Problems: (1) Atrial fibrillation (2) Cardiomegaly (3) Chest pain (4) CHF (congestive heart failure) (5) Diabetic neuropathy (6) DM2 (diabetes mellitus, type 2) (7) End stage renal disease (8) ESRD (end stage renal disease) (9) AC (generalized anxiety disorder) (10) GERD (gastroesophageal reflux disease) (11) Healed or old pulmonary embolism (12) Heart failure (13) HLD (hyperlipidemia) (14) HTN (hypertension) (15) Hyperkalemia (16) Melanoma (17) Obesity hypoventilation syndrome (18) [place] (obstructive sleep apnea) (19) Pacemaker (20) Pulmonary HTN (21) SOB (shortness of breath) (22) TIA (transient ischemic attack) Surgical Problems: (1) H/O total hysterectomy (2) S/P cholecystectomy (3) S/P IVC filter Family History Diabetes mellitus FH: heart disease FATHER MOTHER Kidney disease Social History Smoking Status: Former Smoker Drug Use: none Housing Status: lives alone Occupation Status: retired Current/Historical Medications Scheduled Amiodarone Hcl (Cordarone), 200 MG PO DAILY Aspirin (Aspirin Ec), 81 MG PO QAM Atorvastatin (Lipitor), 40 MG PO QPM Calcium Acetate (Phosphate Bin (Calcium Acetate), 667 MG PO QPM Carvedilol (Coreg), 3.125 MG PO BID Clonazepam (Clonazepam), 0.25 MG PO 3XWK Esomeprazole Magnesium (Nexium), 40 MG PO QPM Fluticasone Propionate (Nasal) (Flonase Allergy Relief), 2 SPRAYS NA DAILY Gabapentin (Neurontin), 100 MG PO HS Insulin Glargine (Lantus), 10 UNITS SC HS Insulin Lispro (Human) (Humalog Kwikpen), 5 UNITS SC AC Levothyroxine Sodium (Synthroid), 25 MCG PO DAILY Multiple Vitamin (Multivitamin), 1 TAB PO QAM Nitroglycerin (Nitrostat), 0.4 MG UT PRN Sertraline Hcl (Zoloft), 100 MG PO HS Scheduled PRN Acetaminophen (Tylenol Extra Strength), 1,000-2,000 MG PO Q4HPRN PRN for Pain Albuterol Sulfate (Proventil Hfa), 2 PUFF INH Q6H PRN for Wheezing Clonazepam (Klonopin), 0.25 MG PO HS PRN for Anxiety Guaifenesin (Organ-I Nr), 200 MG PO Q8H PRN for Cough Home O2 Therapy (Oxygen), 2 LITERS NA HS PRN for Sleep Ipratropium-Albuterol (Duoneb), 3 ML INH Q4H PRN for SOB/Wheezing Lorazepam (Ativan), 0.5 MG PO TID PRN for Anxiety/Agitation Oxycodone/Acetaminophen 5MG/325MG (Percocet 5MG/325MG), 1 TABLET PO Q6H PRN for Pain Ranitidine (Zantac), 150 MG PO BID PRN for Heartburn Allergies Coded Allergies: Iodinated Diagnostic Agents (Verified Allergy, Mild, "Contrast Media" -- unknown rxn, 11/03/17) Adhesives (Verified Allergy, Unknown, "Tape" -- unknown rxn, 11/03/17) Morphine (Unverified Allergy, Unknown, UNKNOWN, 11/03/17) Warfarin (Unverified Allergy, Unknown, HYPERSENSITIVITY/BLEEDING, 11/03/17 ) Tomato (Verified Adverse Reaction, Intermediate, GI SYMPTOMS, 11/03/17) Tomato products cause diarrhea. Physical Exam Vital Signs Date Time Temp Pulse Resp B/P (MAP) Pulse Ox O2 Delivery O2 Flow Rate FiO2 11/04/17 02:39 36.9 70 125/69 97 11/04/17 01:52 70 125/69 97 Nasal Cannula 2.0 11/03/17 23:35 70 138/76 95 Nasal Cannula 2.0 11/03/17 22:14 36.9 69 138/76 95 Nasal Cannula 2.0 Physical Exam GENERAL: Awake, alert, uncomfortable appearing, in no distress HENT: Normocephalic, atraumatic. Oropharynx unremarkable. EYES: Normal conjunctiva. Sclera non-icteric. NECK: Supple. No nuchal rigidity. FROM. No JVD. Mild lower C spine tenderness RESPIRATORY: Clear to auscultation. CARDIAC: Regular rate, normal rhythm. Extremities warm and well perfused. Pulses equal. Left brachial AV fistula with intact thrill. ABDOMEN: Soft, non-distended. No tenderness to palpation. No rebound or guarding. No masses. RECTAL: Deferred. MUSCULOSKELETAL: Tenderness to L spine, right hip, right tib-fib, and right lateral malleolus. No pain with internal/external rotation in the hip. No shortening. . Chest examination reveals no tenderness. The back is symmetrical on inspection without obvious abnormality. There is no CVA tenderness to palpation. No joint edema. LOWER EXTREMITIES: Calves are equal size bilaterally and non-tender. No edema. No discoloration. NEURO: Normal sensorium. No sensory or motor deficits noted. SKIN: No rash or jaundice noted. Medical Decision & Procedures ER Provider Diagnostic Interpretation: HU GILL prelim Xray read (right hip, femur, tib-fib, ankle, foot): negative for gross fx or mal-alignment. STATRAD: Preliminary Findings Only See Final Report For Complete Findings CT HEAD: Comparison is made to prior CT head on 05/23/2016. No acute intracranial abnormality identified. Stable mild chronic small vessel ischemic disease and cerebral volume loss. Bilateral lens implants. Minimal mucosal thickening in the left maxillary sinus. Atherosclerotic calcifications in the intracranial vasculature. CT C SPINE: No acute traumatic abnormality identified. Mild degenerative changes of the cervical spine, most prominent at C1-2. Mild atherosclerotic calcifications in the carotid arteries and aortic arch. CT ABDOMEN & PELVIS Without Contrast: Comparison is made to prior CT abdomen/pelvis on 08/03/2015. No acute abnormality in the abdomen or pelvis. Stable cardiomegaly. Pacer wires persist visualized of the heart. Status post cholecystectomy. Fatty atrophy of the pancreas without inflammation or mass. Proximal left renal stent. Atherosclerotic changes of the vasculature without aneurysm. Narrowing of the origin of the SMA. IVC filter in place. Normal appendix. No bowel obstruction or inflammation. Atrophic kidneys. Small indeterminate hyperdense lesions off the right kidney. No hydronephrosis or stone. Nonspecific bilateral perinephric stranding. Tiny fat-containing umbilical hernia. Mild fat stranding in the anterior abdominal wall subcutaneous fat may be related to injections. Decompressed bladder. Status post hysterectomy. CT L SPINE: No acute fracture or traumatic malalignment. Osteopenia. Degenerative changes of the spine Laboratory Results 11/03/17 22:50 Red Blood Count 3.88, Mean Corpuscular Volume 102.8, Mean Corpuscular Hemoglobin 32.5, Mean Corpuscular Hemoglobin Concent 31.6, Mean Platelet Volume 10.5, Neutrophils (%) (Auto) 82.5, Lymphocytes (%) (Auto) 10.4, Monocytes (%) ( Auto) 5.5, Eosinophils (%) (Auto) 1.2, Basophils (%) (Auto) 0.2, Neutrophils # ( Auto) 5.39, Lymphocytes # (Auto) 0.68, Monocytes # (Auto) 0.36, Eosinophils # ( Auto) 0.08, Basophils # (Auto) 0.01 11/03/17 22:50 Test 11/03/17 22:50 White Blood Count 6.53 K/uL (4.8-10.8) Red Blood Count 3.88 M/uL (4.2-5.4) Hemoglobin 12.6 g/dL (12.0-16.0) Hematocrit 39.9 % (37-47) Mean Corpuscular Volume 102.8 fL (80-100) Mean Corpuscular Hemoglobin 32.5 pg (25-34) Mean Corpuscular Hemoglobin Concent 31.6 g/dl (32-36) Platelet Count 94 K/uL (130-400) Mean Platelet Volume 10.5 fL (7.4-10.4) Neutrophils (%) (Auto) 82.5 % Lymphocytes (%) (Auto) 10.4 % Monocytes (%) (Auto) 5.5 % Eosinophils (%) (Auto) 1.2 % Basophils (%) (Auto) 0.2 % Neutrophils # (Auto) 5.39 K/uL (1.4-6.5) Lymphocytes # (Auto) 0.68 K/uL (1.2-3.4) Monocytes # (Auto) 0.36 K/uL (0.11-0.59) Eosinophils # (Auto) 0.08 K/uL (0-0.5) Basophils # (Auto) 0.01 K/uL (0-0.2) RDW Standard Deviation 54.5 fL (36.4-46.3) RDW Coefficient of Variation 14.5 % (11.5-14.5) Immature Granulocyte % (Auto) 0.2 % Immature Granulocyte # (Auto) 0.01 K/uL (0.00-0.02) Platelet Estimate DECREASED Stomatocytes 1+ Anion Gap 10.0 mmol/L (3-11) Est Creatinine Clear Calc Drug Dose 11.1 ml/min Estimated GFR () 10.7 Estimated GFR (Non- 9.2 BUN/Creatinine Ratio 5.2 (10-20) Calcium Level 9.1 mg/dl (8.5-10.1) Phosphorus Level 2.6 mg/dl (2.5-4.9) Magnesium Level 2.2 mg/dl (1.8-2.4) Laboratory results reviewed by me Medications Administered Medications (Trade) Dose Ordered Sig/Tyesha Route Start Time Stop Time Status Last Admin Dose Admin Acetaminophen (Tylenol Tab) 1,000 mg NOW STAT PO 11/03/17 22:26 11/03/17 22:32 DC 11/03/17 22:55 1,000 MG ED Course 2225: The patient was evaluated in room C6. A complete history and physical exam was performed. 0200: I reevaluated the patient. Discussed results and discharge instructions. She verbalized understanding and agreement. The patient is ready for discharge. Medical Decision I reviewed the patient's past medical history, medications, and the nursing notes as described above. Differential diagnosis: Etiologies such as fracture, dislocation, intra-abdominal, pneumothorax, intrathoracic , intracranial, neurologic, as well as other traumatic pathologies were entertained. The patient is a 72 y/o woman with pmhx of ESRD on HD TRS who presents to the emergency department after a mechanical fall from a step stool where she fell on to her right side with unclear HS but no LOC per HPI. Fall occured when patient missed judged number of steps on step stool. Denies any preceding sx such as dizziness, CP, or SOB. Patient is on O2 prn at home. On arrival the patient is uncomfortable but in NAD. AFVSS. On exam the patient has mild ttp in the lower Cspine and Lspine without stepoffs however in the setting of chronic neck and back pain. Mild ttp to right lateral and inguinal hip. No pain with ROM. Mild ttp to mid tib-fib and right lateral malleolus. STAT prelim read of CT head CL spine, abd pel negative for acute findings. Plain films of right hip , femur, tibfib, ankle and foot without any gross fractures or malalignment per my prelim read. Labs unremarkable. Of not patient did complete HD today and denies ever missing a session. Patient was placed in walking boot. Has walker at home. Daughter will stay with patient tonight. Findings and plan for follow- up reviewed with patient. Patient agreeable and d/c'd per discharge instructions. Medication Reconcilliation Current Medication List: was personally reviewed by me Blood Pressure Screening Patient's blood pressure: Normal blood pressure Blood pressure disposition: Did not require urgent referral Impression Primary Impression: Ankle sprain Additional Impression: Fall Scribe Attestation The scribe's documentation has been prepared under my direction and personally reviewed by me in its entirety. I confirm that the note above accurately reflects all work, treatment, procedures, and medical decision making performed by me. Departure Information Dispostion Home / Self-Care Referrals Subhash Mo M.D. (PCP) Forms HOME CARE DOCUMENTATION FORM, IMPORTANT VISIT INFORMATION Patient Instructions ED Mechanical Fall, ED Sprain Ankle, My [facility] Additional Instructions Please follow up with your primary care physician on Sunday for re-evaluation. You likely have an ankle sprain however the formal xray reports are still pending. Otherwise, your exam, xrays, and CT scans, and lab results did not show signs of an emergent condition at this time. Acetaminophen for pain as needed. Walking boot with walker for comfort. Return to the emergency department for worsening symptoms as described in the accompanying instructions. Problem Qualifiers
[2017-11-03] MEDS ORDERED: OXYC-57 PO (22:50)
[2017-11-03] MEDS ORDERED: IPRA-64 INH (23:03)
[2017-11-03 23:06] LABS: HEMATOCRIT 39.9 % (37-47); HEMOGLOBIN 12.6 g/dL (12.0-16.0); MEAN CELL VOLUME 102.8 fL (80-100); MEAN CORPUSCULAR HEMOGLOBIN 32.5 pg (25-34); MEAN CORPUSCULAR HGB CONC 31.6 g/dl (32-36); RED CELL DISTRIBUTION WIDTH CV 14.5 % (11.5-14.5); RED CELL DISTRIBUTION WIDTH SD 54.5 fL (36.4-46.3); WHITE BLOOD COUNT 6.53 K/uL (4.8-10.8)
[2017-11-03] MEDS ORDERED: OXGN (23:06)
[2017-11-03 23:20] LABS: CALCIUM 9.1 mg/dl (8.5-10.1); CREATININE 4.42 mg/dl (0.60-1.20); POTASSIUM 3.7 mmol/L (3.5-5.1)
[2017-11-03 23:21] LABS: PHOSPHORUS 2.6 mg/dl (2.5-4.9)
[2017-11-03 23:25] LABS: MEAN PLATELET VOLUME 10.5 fL (7.4-10.4); PLATELET COUNT 94 K/uL (130-400)
[2017-11-03 23:27] LABS: BASO % 0.2 %; BASO ABS # 0.01 K/uL (0-0.2); EOS % 1.2 %; EOS ABS # 0.08 K/uL (0-0.5); IG# 0.01 K/uL (0.00-0.02); LYMPH % 10.4 %; LYMPH ABS # 0.68 K/uL (1.2-3.4); MONO % 5.5 %; MONO ABS # 0.36 K/uL (0.11-0.59); NEUT % 82.5 %; NEUT ABS # 5.39 K/uL (1.4-6.5)
[2017-11-04 02:39] VITALS: BP 125/69; PULSE 70; TEMP 36.9; O2SAT 97
--- NOTE | 2017-11-04 05:35 | DIAGNOSTIC IMAGING REPORT ---
CERVICAL SPINE W/O CT DOSE: 1034.81 mGy.cm HISTORY: Trauma pain fall TECHNIQUE: Multiaxial CT images of the cervical spine were performed and reformatted in the sagittal and coronal plane without the use of contrast. A dose lowering technique was utilized adhering to the principles of ALARA. COMPARISON: None. FINDINGS: No fractures. No subluxation. Prevertebral soft tissues and the C1-C2 interval are intact. No pneumothorax. Mild degenerative disc change throughout. IMPRESSION: No fractures within the cervical spine. The above report was generated using voice recognition software. It may contain grammatical, syntax or spelling errors. Electronically signed by: Ben Carranza M.D. 11/04/2017 5:34 AM Dictated Date/Time: 11/04/2017 5:33 AM
--- NOTE | 2017-11-04 05:36 | DIAGNOSTIC IMAGING REPORT ---
HEAD WITHOUT CONTRAST (CT) CT DOSE: HISTORY: Mental status change pain fall TECHNIQUE: Multiaxial CT images of the head were performed without the use of intravenous contrast. A dose lowering technique was utilized adhering to the principles of ALARA. Comparison: 05/23/2016 Findings: The paranasal sinuses and mastoid air cells are clear. The calvarium and skull base are intact. The ventricles and sulci are within normal limits. There is no mass, hematoma, midline shift, or acute infarct. Mild age-related atrophy and chronic small vessel change. Impression: No acute intracranial abnormality. Age-related change The above report was generated using voice recognition software. It may contain grammatical, syntax or spelling errors. Electronically signed by: Ben Carranza M.D. 11/04/2017 5:35 AM Dictated Date/Time: 11/04/2017 5:34 AM
--- NOTE | 2017-11-04 05:39 | DIAGNOSTIC IMAGING REPORT ---
LUMBAR SPINE WITHOUT CT DOSE: HISTORY: Trauma. Pain. pain fall TECHNIQUE: Multiaxial CT images of the lumbar spine were performed and reformatted in the sagittal and coronal plane without the use of contrast. A dose lowering technique was utilized adhering to the principles of ALARA. COMPARISON: 03/31/2016 FINDINGS: Moderate degenerative change. Osteopenia. Moderate degenerative disc change. No evidence for subluxation. No acute posttraumatic change. IMPRESSION: No acute bony abnormality. Degenerative change. The above report was generated using voice recognition software. It may contain grammatical, syntax or spelling errors. Electronically signed by: Ben Carranza M.D. 11/04/2017 5:38 AM Dictated Date/Time: 11/04/2017 5:37 AM
--- NOTE | 2017-11-04 05:42 | DIAGNOSTIC IMAGING REPORT ---
ABD/PELVIS NO IV OR ORAL CONT CT DOSE: 1419.77 mGy.cm HISTORY: Trauma. Pain. pain fall TECHNIQUE: Multiaxial CT images of the abdomen and pelvis were performed without contrast. A dose lowering technique was utilized adhering to the principles of ALARA. COMPARISON STUDY: 08/03/2017 FINDINGS: Stable cardiomegaly. Mild dependent bibasilar atelectasis. The liver spleen and pancreas are unremarkable. Kidneys are atrophic. No evidence for hydronephrosis. Inferior vena caval filter is present. Bowel pattern is nonobstructive. Atherosclerotic change abdominal aorta. Small periumbilical hernia unchanged in the prior study. Moderate degenerative change of the osseous structures with no well-defined acute abnormality. IMPRESSION: Chronic change. No acute posttraumatic change. The above report was generated using voice recognition software. It may contain grammatical, syntax or spelling errors. Electronically signed by: Ben Carranza M.D. 11/04/2017 5:41 AM Dictated Date/Time: 11/04/2017 5:38 AM
--- NOTE | 2017-11-04 05:47 | DIAGNOSTIC IMAGING REPORT ---
R TIBIA/FIBULA 2 VIEWS ROUTINE CLINICAL HISTORY: pain fall trauma. Pain. COMPARISON: None. DISCUSSION: The bones and joint spaces appear intact. There is no evidence of fracture, dislocation or bony disease. There is no evidence for soft tissue swelling. IMPRESSION: Negative study. The above report was generated using voice recognition software. It may contain grammatical, syntax or spelling errors. Electronically signed by: Ben Carranza M.D. 11/04/2017 5:45 AM Dictated Date/Time: 11/04/2017 5:45 AM
--- NOTE | 2017-11-04 05:48 | DIAGNOSTIC IMAGING REPORT ---
R ANKLE MIN 3 VIEWS ROUTINE CLINICAL HISTORY: pain fall trauma. Pain. COMPARISON: None. DISCUSSION: The bones and joint spaces appear intact. There is no evidence of fracture, dislocation or bony disease. Mild degenerative change. Small heel spur. IMPRESSION: Mild degenerative change. No acute bony abnormality. The above report was generated using voice recognition software. It may contain grammatical, syntax or spelling errors. Electronically signed by: Ben Carranza M.D. 11/04/2017 5:47 AM Dictated Date/Time: 11/04/2017 5:46 AM
--- NOTE | 2017-11-04 05:49 | DIAGNOSTIC IMAGING REPORT ---
R FOOT MIN 3 VIEWS ROUTINE CLINICAL HISTORY: pain fall pain. Trauma. COMPARISON: None. DISCUSSION: Small heel spur. No acute bony abnormality. Minimal degenerative change. There is no evidence for soft tissue swelling. IMPRESSION: Minimal degenerative change. Small heel spur. No acute bony abnormality. The above report was generated using voice recognition software. It may contain grammatical, syntax or spelling errors. Electronically signed by: Ben Carranza M.D. 11/04/2017 5:48 AM Dictated Date/Time: 11/04/2017 5:47 AM
--- NOTE | 2017-11-04 05:50 | DIAGNOSTIC IMAGING REPORT ---
CHEST ONE VIEW PORTABLE CLINICAL HISTORY: ABDOMINAL PAIN/GI pain COMPARISON STUDY: 11/15/2016 FINDINGS: Stable cardiomegaly. Bipolar cardiac pacer in good position. Diaphragms smooth. Lungs are clear. IMPRESSION: Stable cardiomegaly. Otherwise negative study The above report was generated using voice recognition software. It may contain grammatical, syntax or spelling errors. Electronically signed by: Ben Carranza M.D. 11/04/2017 5:49 AM Dictated Date/Time: 11/04/2017 5:48 AM
--- NOTE | 2017-11-04 05:51 | DIAGNOSTIC IMAGING REPORT ---
R HIP UNILATERAL 2 VIEWS CLINICAL HISTORY: pain fall trauma. Pain. COMPARISON: None. DISCUSSION: Moderate degenerative change right hip. No well-defined acute bony abnormality. No evidence for fracture. No acetabular protrusion. There is no evidence for soft tissue swelling. IMPRESSION: No acute bony abnormality. Moderate degenerative change. The above report was generated using voice recognition software. It may contain grammatical, syntax or spelling errors. Electronically signed by: Ben Carranza M.D. 11/04/2017 5:50 AM Dictated Date/Time: 11/04/2017 5:49 AM
--- NOTE | 2017-11-04 05:54 | DIAGNOSTIC IMAGING REPORT ---
R FEMUR 2 VIEWS ROUTINE CLINICAL HISTORY: pain fall trauma. Pain. COMPARISON: None. DISCUSSION: The bones and joint spaces appear intact. There is no evidence of fracture, dislocation or bony disease. There is no evidence for soft tissue swelling. IMPRESSION: Negative study. The above report was generated using voice recognition software. It may contain grammatical, syntax or spelling errors. Electronically signed by: Ben Carranza M.D. 11/04/2017 5:53 AM Dictated Date/Time: 11/04/2017 5:53 AM
[2018-01-26] MEDS ORDERED: ASPI-320 PO (14:54)
[2018-02-04] MEDS ORDERED: BENZ100C7 PO (11:35)
[2018-02-04] MEDS ORDERED: DRGTP12 TD (11:35)
[2018-02-04] MEDS ORDERED: DLD/2 PO (11:35)
[2018-02-04] MEDS ORDERED: MRLP17X PO (11:35)
[2018-02-04] MEDS ORDERED: DXY100 PO (11:35)
[2018-02-04] MEDS ORDERED: DRGTP25 TD (11:35)
[2018-02-04] MEDS ORDERED: SENN8.6T7 PO (11:35)
[2018-05-09] MEDS ORDERED: PANT1TAB3 PO (15:02)
[2018-05-09] MEDS ORDERED: ACET1TAB84 PO (15:02)
[2018-05-09] MEDS ORDERED: VBRT100 PO (15:02)
[2018-05-09] MEDS ORDERED: FNTTP50 TD (15:02)
[2018-05-09] MEDS ORDERED: OXYC-57 PO (15:02)
[2018-05-09] MEDS ORDERED: LEVO75TA PO (16:13)
[2018-05-13] MEDS ORDERED: LDDP5 EXT (10:09)
== END 2017-11-04 02:40 | disposition home or self-care (01) ==
LOC: EDBD 22:09 → C.EDC 22:10
DX: S93.401A Sprain of unspecified ligament of right ankle, initial encounter (principal); M25.551 Pain in right hip; W10.8XXA Fall (on) (from) other stairs and steps, initial encounter; Y93.89 Activity, other specified; Y92.000 Kitchen of unspecified non-institutional (private) residence as the place of occurrence of the external cause; I13.2 Hypertensive heart and chronic kidney disease with heart failure and with stage 5 chronic kidney disease, or end stage renal disease; E11.22 Type 2 diabetes mellitus with diabetic chronic kidney disease; N18.6 End stage renal disease; Z99.2 Dependence on renal dialysis; M48.00 Spinal stenosis, site unspecified; I48.91 Unspecified atrial fibrillation; E11.40 Type 2 diabetes mellitus with diabetic neuropathy, unspecified; F41.1 Generalized anxiety disorder; K21.9 Gastro-esophageal reflux disease without esophagitis; E78.5 Hyperlipidemia, unspecified; I27.20 Pulmonary hypertension, unspecified; Z95.0 Presence of cardiac pacemaker; Z79.82 Long term (current) use of aspirin; Z79.4 Long term (current) use of insulin; Z87.891 Personal history of nicotine dependence; Z83.3 Family history of diabetes mellitus; Z82.49 Family history of ischemic heart disease and other diseases of the circulatory system; Z84.1 Family history of disorders of kidney and ureter

== ENCOUNTER 2017-11-10 16:43 | Emergency (ER) | payer OTHER ==
[~2017-11-10 16:43] MED LIST changes: -ATRINS NEB; +CLON0.5T3 PO; -CLON0.5T9 PO; -CYCL5TAB PO; -GABA-1693 PO; +GABA1CAP PO; +GUAI1TAB68 PO; +IPRASOL4 INH; -ORG200 PO; +OXGN; +OXYC-57 PO; -RANI150T85 PO; +ZNTT/150 PO
[2017-11-10 16:52] VITALS: TEMP 36.5; Ht 152.4 cm
[2017-11-10] MEDS ORDERED: ACETAMINOPHEN 500 MG TAB PO STA (17:11)
[2017-11-10] MEDS ORDERED: DEXAMETHASONE **PF** INJ 10 MG/ML VIAL IM ONE (17:15)
[2017-11-10] MEDS ORDERED: FENTANYL CITRATE INJ 50 MCG/1 ML 2 ML VIAL IM ONE (17:15)
--- NOTE | 2017-11-10 17:25 | EMERGENCY ROOM VISIT NOTE ---
History Report prepared by Nic: Brandi Sheehan Under the Supervision of: Dr. Fabricio Chase M.D. First contact with patient: 16:55 Chief Complaint: FALL Stated Complaint: FELL, FOOT, LEG History of Present Illness The patient is a 72 year old female who presents to the Emergency Room with complaints of worsening right hip pain that shoots down her leg to her right ankle. The patient had an episode of a fall on November 06 and was seen in the ED for it. She had an X-ray and CT of her hip which were unremarkable. The patient was discharged on Percocet. She states the Percocet provides her no relief from her pain. She last took Percocet this morning. The patient states she followed up with her PCP after her fall who told her to come back to the ED if her pain worsened. She reports her pain has worsened since being seen in the ED last. The patient reports she is able to walk but her pain worsens with movement and walking. She notes a bruise on the bottom of her right foot. She notes some back pain but denies any more recent falls. The patient has a history of chronic back pain. The patient had dialysis today. The patient can not get a MRI because of her pacemaker. Source of History: patient Position: knee (right), ankle (right), other (right hip) Quality: other (pain) Timing: worsening Modifying Factors (Worsening): movement Modifying Factors (Relieving): other (none) Associated Symptoms: + back pain Review of Systems See HPI for pertinent positives and negatives. A total of ten systems were reviewed and were otherwise negative. Past Medical & Surgical Medical Problems: (1) Atrial fibrillation (2) Cardiomegaly (3) Chest pain (4) CHF (congestive heart failure) (5) Diabetic neuropathy (6) DM2 (diabetes mellitus, type 2) (7) End stage renal disease (8) ESRD (end stage renal disease) (9) AC (generalized anxiety disorder) (10) GERD (gastroesophageal reflux disease) (11) Healed or old pulmonary embolism (12) Heart failure (13) HLD (hyperlipidemia) (14) HTN (hypertension) (15) Hyperkalemia (16) Melanoma (17) Obesity hypoventilation syndrome (18) EVERTON (obstructive sleep apnea) (19) Pacemaker (20) Pulmonary HTN (21) SOB (shortness of breath) (22) TIA (transient ischemic attack) Surgical Problems: (1) H/O total hysterectomy (2) S/P cholecystectomy (3) S/P IVC filter Family History Diabetes mellitus FH: heart disease FATHER MOTHER Kidney disease Social History Smoking Status: Never Smoker Drug Use: none Housing Status: lives alone Occupation Status: retired Current/Historical Medications Scheduled Amiodarone Hcl (Cordarone), 200 MG PO DAILY Aspirin (Aspirin Ec), 81 MG PO QAM Atorvastatin (Lipitor), 40 MG PO QPM Calcium Acetate (Phosphate Bin (Calcium Acetate), 667 MG PO QPM Carvedilol (Coreg), 3.125 MG PO BID Clonazepam (Clonazepam), 0.25 MG PO 3XWK Esomeprazole Magnesium (Nexium), 40 MG PO QPM Fluticasone Propionate (Nasal) (Flonase Allergy Relief), 2 SPRAYS NA DAILY Gabapentin (Neurontin), 100 MG PO HS Insulin Glargine (Lantus), 10 UNITS SC HS Insulin Lispro (Human) (Humalog Kwikpen), 5 UNITS SC AC Levothyroxine Sodium (Synthroid), 25 MCG PO DAILY Multiple Vitamin (Multivitamin), 1 TAB PO QAM Nitroglycerin (Nitrostat), 0.4 MG UT PRN Sertraline Hcl (Zoloft), 100 MG PO HS Scheduled PRN Acetaminophen (Tylenol Extra Strength), 1,000-2,000 MG PO Q4HPRN PRN for Pain Albuterol Sulfate (Proventil Hfa), 2 PUFF INH Q6H PRN for Wheezing Clonazepam (Klonopin), 0.25 MG PO HS PRN for Anxiety Guaifenesin (Organ-I Nr), 200 MG PO Q8H PRN for Cough Home O2 Therapy (Oxygen), 2 LITERS NA HS PRN for Sleep Ipratropium-Albuterol (Duoneb), 3 ML INH Q4H PRN for SOB/Wheezing Lorazepam (Ativan), 0.5 MG PO TID PRN for Anxiety/Agitation Oxycodone/Acetaminophen 5MG/325MG (Percocet 5MG/325MG), 1 TABLET PO Q6H PRN for Pain Ranitidine (Zantac), 150 MG PO BID PRN for Heartburn Allergies Coded Allergies: Iodinated Diagnostic Agents (Verified Allergy, Mild, "Contrast Media" -- unknown rxn, 11/03/17) Adhesives (Verified Allergy, Unknown, "Tape" -- unknown rxn, 11/03/17) Morphine (Unverified Allergy, Unknown, UNKNOWN, 11/03/17) Warfarin (Unverified Allergy, Unknown, HYPERSENSITIVITY/BLEEDING, 11/03/17 ) Tomato (Verified Adverse Reaction, Intermediate, GI SYMPTOMS, 11/03/17) Tomato products cause diarrhea. Physical Exam Vital Signs Date Time Temp Pulse Resp B/P (MAP) Pulse Ox O2 Delivery O2 Flow Rate FiO2 11/10/17 18:55 68 18 133/68 99 11/10/17 17:53 70 18 133/63 11/10/17 16:52 36.5 70 16 159/66 97 Room Air Physical Exam GENERAL: Awake, alert, uncomfortable-appearing, in mild distress HENT: Normocephalic, atraumatic. Oropharynx unremarkable. EYES: Normal conjunctiva. Sclera non-icteric. NECK: Supple. No nuchal rigidity. FROM. No JVD. RESPIRATORY: Clear to auscultation. CARDIAC: Regular rate, normal rhythm. Extremities warm and well perfused. Pulses equal. ABDOMEN: Soft, non-distended. No tenderness to palpation. No rebound or guarding. No masses. RECTAL: Deferred. MUSCULOSKELETAL: Chest examination reveals no tenderness. The back is symmetrical on inspection without obvious abnormality. Mild lumbar tenderness to palpation, extending distally on the right sciatic distribution. There is no CVA tenderness to palpation. No joint edema. LOWER EXTREMITIES: Positive straight leg raise, moderate tenderness of medial aspect of right aspect, resolving contusion on plantar surface of right foot, PMS intact. Calves are equal size bilaterally and non-tender. No edema. NEURO: Normal sensorium. No sensory or motor deficits noted. SKIN: No rash or jaundice noted. Medical Decision & Procedures Medications Administered Medications (Trade) Dose Ordered Sig/Tyesha Route Start Time Stop Time Status Last Admin Dose Admin Fentanyl Citrate (Fentanyl Inj) 100 mcg NOW ONCE IM 11/10/17 17:15 11/10/17 17:19 DC 11/10/17 17:24 100 MCG Dexamethasone Sodium Phosphate (Dexamethasone Inj Pf) 10 mg NOW ONCE IM 11/10/17 17:15 11/10/17 17:19 DC 11/10/17 17:24 10 MG Acetaminophen (Tylenol Tab) 1,000 mg NOW STAT PO 11/10/17 17:11 11/10/17 17:19 DC 11/10/17 17:24 1,000 MG ED Course 165: The patient was evaluated in room A3. A complete history and physical exam was performed. 1711: Ordered Acetaminophen 1000 mg PO. 1715: Ordered Dexamethasone Sodium Phosphate 10 mg IM, Fentanyl Inj 100 mcg IM. 1833: I updated the patient on her test results. 184: I reevaluated the patient. Discussed results and discharge instructions: She verbalized understanding and agreement. The patient is ready for discharge. Medical Decision I reviewed the patient's past medical history, medications, and the nursing notes as described above. Differential Diagnoses include: lumbosacral radiculopathy, muscular strain, tendonitis, soft tissue injury. The patient is a 72-year-old woman with a past medical history of ESRD on HD who presents emergency Department with persistent lower back and right hip leg pain after having a fall on November 06 seen in the ED and had a negative CT of the L-spine and abdomen and pelvis, as well as negative x-rays of the right hip femur, tib-fib, ankle, foot per hpi. Arrival the patient is uncomfortable in no acute distress, afebrile stable vital signs. I did evaluate this patient on her prior ED visit in and familiar with her episode. On exam the patient has mild tenderness to the lumbar region with mild tenderness extending distally on the right within the sciatic distribution. He has a positive straight leg raise on the right. Otherwise shows with mild tenderness to the medial aspect of her right thigh. No evidence of hematoma or contusion. Right foot does have a mild contusion to the plantar surface of the right foot which is likely distribution of her prior contusion of her ankle after her fall. The patient's negative imaging previously and symptoms persisting in the same area no indication for additional imaging today. The patient is unable to obtain MRI given her pacemaker. The patient was given IM dose of dexamethasone and fentanyl as well as Tylenol with good effect. Case management assisting to discussed with patient options for rehabilitation, however there is no inpatient beds available this evening. Patient's pain did improve sufficiently where she felt comfortable to go home as she was able to ambulate with only mild discomfort with her walker. She was given information by case management to contact [facility] for inpatient rehabilitation bed if her pain persists or additionally contact information to arrange for home physical therapy. Findings and plan for follow-up reviewed with patient. Patient agreeable and d/c'd per discharge instructions. Medication Reconcilliation Current Medication List: was personally reviewed by me Blood Pressure Screening Patient's blood pressure: Normal blood pressure Impression Primary Impression: Low back pain potentially associated with radiculopathy Additional Impression: Leg pain, right Scribe Attestation The scribe's documentation has been prepared under my direction and personally reviewed by me in its entirety. I confirm that the note above accurately reflects all work, treatment, procedures, and medical decision making performed by me. Departure Information Dispostion Home / Self-Care Referrals No Doctor, Assigned (PCP) Forms HOME CARE DOCUMENTATION FORM, IMPORTANT VISIT INFORMATION Patient Instructions ED Muscle Aching, ED Strain Muscle Ext, Lumbar Radiculopathy, My [facility] Additional Instructions Please follow up with your primary care physician in the next 1-3 days for re- evaluation as well as with physical therapy services tomorrow with the information provided by our case management. You likely have muscle strain from your fall several days ago as your CT scan of your abdomen pelvis and lumbar spine, as well as xrays of your hip, femur, tibia/fibula, ankle, and foot were all without fractures. Otherwise, your exam did not show signs of an emergent condition at this time. Continue your current pain medications as prescribed. Return to the emergency department for worsening symptoms as described in the accompanying instructions. Problem Qualifiers
[2017-11-10 18:55] VITALS: BP 133/68; PULSE 68; O2SAT 99
== END 2017-11-10 18:56 | disposition home or self-care (01) ==
LOC: C.EDB 16:43 → C.EDA 18:56
DX: M54.16 Radiculopathy, lumbar region (principal); M79.604 Pain in right leg; I48.91 Unspecified atrial fibrillation; E11.42 Type 2 diabetes mellitus with diabetic polyneuropathy; I12.0 Hypertensive chronic kidney disease with stage 5 chronic kidney disease or end stage renal disease; N18.6 End stage renal disease; E78.5 Hyperlipidemia, unspecified; I50.9 Heart failure, unspecified; K21.9 Gastro-esophageal reflux disease without esophagitis; F41.1 Generalized anxiety disorder; G47.33 Obstructive sleep apnea (adult) (pediatric); Z86.711 Personal history of pulmonary embolism; Z86.73 Personal history of transient ischemic attack (TIA), and cerebral infarction without residual deficits; Z90.710 Acquired absence of both cervix and uterus; Z90.49 Acquired absence of other specified parts of digestive tract; Z79.82 Long term (current) use of aspirin; Z79.4 Long term (current) use of insulin; Z79.899 Other long term (current) drug therapy; Z88.5 Allergy status to narcotic agent; Z88.8 Allergy status to other drugs, medicaments and biological substances; Z91.018 Allergy to other foods; Z91.041 Radiographic dye allergy status; Z91.09 Other allergy status, other than to drugs and biological substances

== ENCOUNTER 2018-01-25 12:00 | Emergency (ER) | payer OTHER ==
[~2018-01-25] VITALS: Ht 152.4 cm; Wt 88.1 kg
[~2018-01-25 12:00] MED LIST changes: +GABA100C13 PO; -GABA1CAP PO; -GUAI1TAB68 PO; +ORG200 PO; +RANI150T85 PO; -ZNTT/150 PO
[2018-01-25 12:15] VITALS: TEMP 37; O2SAT 96; Ht 152.4 cm; Wt 88.1 kg
--- NOTE | 2018-01-25 12:46 | EMERGENCY ROOM VISIT NOTE ---
History Report prepared by Nic: Juanito Clifton Under the Supervision of: Dr. Venkatesh Weston M.D. First contact with patient: 12:25 Chief Complaint: CHEST PAIN Stated Complaint: CHEST PAIN Nursing Triage Summary: Pt arrives to ER via ALS with complaints of L sided chest pain that radiates into her L back that began 2 days ago. Reports increasingly worse over the last 2 days, very painful today. Pt rates her pain 5/10 at rest and 7/10 with movement or deep breathing. Pt received 324mg of aspirin and 1 nitro CARD SETTER. Pt reports little relief from the nitro. Pt receives dialysis T, Th, Sat (last dialysed yesterday). Pt wears bipap with 2L O2 at night and 2L PRN at home. History of Present Illness The patient is a 72 year old female who presents to the Emergency Room with complaints of worsening left sided chest pain rated as 5/10 that radiates into her back that started 3 days ago. She complains of nausea, swelling above her ankles, and headaches across her right eye. She reports no urinary output. She states her pain worsens to a 7/10 with movement, inspiration, and lying down. Per ALS, she was given Aspirin (324 mg) and Nitro spray with minimal relief. She states that she uses 2L Oxygen and BiPAP at home at night and when she needs it. She denies vomiting, rashes, fevers, syncope, and cough. She denies Coumadin use. She has a history of mini strokes, blood clots in her lungs, and had a recent fall in November. She states that at her dialysis appointments, the staff has tried to take off as much fluid as possible. Source of History: patient, other (ALS) Onset: 3 days ago Position: chest (left), back Symptom Intensity: rated as 7/10 Timing: worsening Modifying Factors (Worsening): breathing, movement, other (lying down) Modifying Factors (Relieving): other (minimal relief from Aspirin and Nitro spray) Associated Symptoms: + headache (right side), + nausea, + urinary symptoms ( no urinary output), No LOC, No fevers, No cough, No vomiting, No rash Note: Patient complains of swelling above her ankles. Review of Systems See HPI for pertinent positives & negatives. A total of 10 systems reviewed and were otherwise negative. Past Medical & Surgical Medical Problems: (1) Atrial fibrillation (2) Cardiomegaly (3) Chest pain (4) CHF (congestive heart failure) (5) Diabetic neuropathy (6) DM2 (diabetes mellitus, type 2) (7) End stage renal disease (8) ESRD (end stage renal disease) (9) AC (generalized anxiety disorder) (10) GERD (gastroesophageal reflux disease) (11) Healed or old pulmonary embolism (12) Heart failure (13) HLD (hyperlipidemia) (14) HTN (hypertension) (15) Hyperkalemia (16) Melanoma (17) Obesity hypoventilation syndrome (18) EVERTON (obstructive sleep apnea) (19) Pacemaker (20) Pulmonary HTN (21) SOB (shortness of breath) (22) TIA (transient ischemic attack) Surgical Problems: (1) H/O total hysterectomy (2) S/P cholecystectomy (3) S/P IVC filter Family History Diabetes mellitus FH: heart disease FATHER MOTHER Kidney disease Social History Smoking Status: Never Smoker Drug Use: none Housing Status: lives alone Occupation Status: retired Current/Historical Medications Scheduled Amiodarone Hcl (Cordarone), 200 MG PO DAILY Aspirin (Aspirin Ec), 81 MG PO QAM Atorvastatin (Lipitor), 40 MG PO QPM Calcium Acetate (Phosphate Bin (Calcium Acetate), 667 MG PO QPM Clonazepam (Clonazepam), 0.25 MG PO 3XWK Esomeprazole Magnesium (Nexium), 40 MG PO QPM Fluticasone Propionate (Nasal) (Flonase Allergy Relief), 2 SPRAYS NA DAILY Gabapentin (Neurontin), 200 MG PO BID Insulin Glargine (Lantus), 10 UNITS SC HS Insulin Lispro (Human) (Humalog), 5 UNITS SQ TIDM Levothyroxine Sodium (Levothyroxine Sodium), 50 MCG PO DAILY Midodrine Hcl (Midodrine Hcl), 10 MG PO 3XWK Multiple Vitamin (Multivitamin), 1 TAB PO QAM Nitroglycerin (Nitrostat), 0.4 MG UT PRN Sertraline Hcl (Zoloft), 100 MG PO HS Scheduled PRN Acetaminophen (Tylenol Extra Strength), 1,000-2,000 MG PO Q4HPRN PRN for Pain Albuterol Sulfate (Proventil Hfa), 2 PUFF INH Q6H PRN for Wheezing Clonazepam (Klonopin), 0.25 MG PO HS PRN for Anxiety Guaifenesin (Organ-I Nr), 200 MG PO Q8H PRN for Cough Home O2 Therapy (Oxygen), 2 LITERS NA HS PRN for Sleep Ipratropium-Albuterol (Duoneb), 3 ML INH Q4H PRN for SOB/Wheezing Lorazepam (Ativan), 0.5 MG PO TID PRN for Anxiety/Agitation Oxycodone/Acetaminophen 5MG/325MG (Percocet 5MG/325MG), 1 TABLET PO Q6H PRN for Pain Ranitidine (Zantac), 150 MG PO BID PRN for Heartburn Allergies Coded Allergies: Iodinated Diagnostic Agents (Verified Allergy, Mild, "Contrast Media" -- unknown rxn, 01/25/18) Adhesives (Verified Allergy, Unknown, "Tape" -- unknown rxn, 01/25/18) Morphine (Unverified Allergy, Unknown, UNKNOWN, 01/25/18) Warfarin (Unverified Allergy, Unknown, HYPERSENSITIVITY/BLEEDING, 01/25/18) Tomato (Verified Adverse Reaction, Intermediate, GI SYMPTOMS, 01/25/18) Tomato products cause diarrhea. Physical Exam Vital Signs Date Time Temp Pulse Resp B/P (MAP) Pulse Ox O2 Delivery O2 Flow Rate FiO2 01/25/18 17:49 70 20 112/60 97 01/25/18 16:10 70 18 121/74 98 Nasal Cannula 2.0 01/25/18 14:30 70 19 105/61 96 Nasal Cannula 2.0 01/25/18 13:30 70 17 129/73 97 Nasal Cannula 2.0 01/25/18 12:19 70 01/25/18 12:15 96 Nasal Cannula 2.0 01/25/18 12:15 37.0 70 21 128/78 91 Room Air 01/25/18 12:15 91 Room Air 01/25/18 12:10 91 Room Air Physical Exam GENERAL: Patient is chronically unwell appearing and in moderate distress. EYES: No scleral icterus, unremarkable pupils. ENT: Mucous membranes moist, no nasal congestion. NECK: No masses appreciated, no meningismus, trachea is midline. RESPIRATORY: Bilateral crackles in lower lobes. No dyspnea. Clear to auscultation and equal bilaterally. No wheeze, no rhonchi. CARDIOVASCULAR: Regular rate and rhythm. Distant systolic murmur. No rubs, gallops appreciated. GASTROINTESTINAL: Abdomen soft, nontender, no peritonitis. Bowel sounds positive. No masses appreciated. BACK: No midline tenderness, no CVA tenderness EXTREMITIES: Good thrill over left upper arm fistula. Moderate pitting edema of bilateral lower legs. Normal motion all extremities, no cyanosis. NEUROLOGIC: Alert and oriented, no acute motor or sensory deficits, no focal weakness, cranial nerves grossly intact. SKIN: No rash, no jaundice, no diaphoresis. Medical Decision & Procedures ER Provider Diagnostic Interpretation: Radiology results and stated below per my review and radiologist interpretation: CHEST ONE VIEW PORTABLE CLINICAL HISTORY: Chest Pain dyspnea COMPARISON STUDY: 11/04/2017 FINDINGS: Mild cardia megaly. Bipolar cardiac pacemaker. Comment pulmonary vasculature. Diaphragms are smooth. IMPRESSION: Congestive heart failure The above report was generated using voice recognition software. It may contain grammatical, syntax or spelling errors. Electronically signed by: Ben Carranza M.D. 01/25/2018 12:48 PM Dictated Date/Time: 01/25/2018 12:48 PM VENOUS DOPPLER LWR EXT BILA CLINICAL HISTORY: 72 years-old Female presenting with bilateral lower leg swelling, history of DVT/PE. TECHNIQUE: Real-time grayscale and color and spectral Doppler ultrasound imaging of the veins of the bilateral lower extremities was performed. Compression and augmentation were also utilized. COMPARISON: None. FINDINGS: Right: Common femoral vein: Patent. Greater saphenous vein: Patent. Deep femoral vein: Patent. Femoral vein: Patent. Popliteal vein: Patent. Calf veins: Patent. Left: Common femoral vein: Patent. Greater saphenous vein: Patent. Deep femoral vein: Patent. Femoral vein: Patent. Popliteal vein: Patent. Calf veins: Patent. Other: None. IMPRESSION: No evidence of deep venous thrombosis. Electronically signed by: Rock Ontiveros M.D. 01/25/2018 4:45 PM Dictated Date/Time: 01/25/2018 4:43 PM Laboratory Results 01/25/18 13:16 Red Blood Count 3.69, Mean Corpuscular Volume 101.9, Mean Corpuscular Hemoglobin 32.0, Mean Corpuscular Hemoglobin Concent 31.4, Mean Platelet Volume 10.9, Neutrophils (%) (Auto) 84.1, Lymphocytes (%) (Auto) 8.7, Monocytes (%) ( Auto) 5.6, Eosinophils (%) (Auto) 0.9, Basophils (%) (Auto) 0.3, Neutrophils # ( Auto) 5.70, Lymphocytes # (Auto) 0.59, Monocytes # (Auto) 0.38, Eosinophils # ( Auto) 0.06, Basophils # (Auto) 0.02 01/25/18 13:16 Test 01/25/18 13:16 White Blood Count 6.78 K/uL (4.8-10.8) Red Blood Count 3.69 M/uL (4.2-5.4) Hemoglobin 11.8 g/dL (12.0-16.0) Hematocrit 37.6 % (37-47) Mean Corpuscular Volume 101.9 fL (80-100) Mean Corpuscular Hemoglobin 32.0 pg (25-34) Mean Corpuscular Hemoglobin Concent 31.4 g/dl (32-36) Platelet Count 102 K/uL (130-400) Mean Platelet Volume 10.9 fL (7.4-10.4) Neutrophils (%) (Auto) 84.1 % Lymphocytes (%) (Auto) 8.7 % Monocytes (%) (Auto) 5.6 % Eosinophils (%) (Auto) 0.9 % Basophils (%) (Auto) 0.3 % Neutrophils # (Auto) 5.70 K/uL (1.4-6.5) Lymphocytes # (Auto) 0.59 K/uL (1.2-3.4) Monocytes # (Auto) 0.38 K/uL (0.11-0.59) Eosinophils # (Auto) 0.06 K/uL (0-0.5) Basophils # (Auto) 0.02 K/uL (0-0.2) RDW Standard Deviation 55.6 fL (36.4-46.3) RDW Coefficient of Variation 15.1 % (11.5-14.5) Immature Granulocyte % (Auto) 0.4 % Immature Granulocyte # (Auto) 0.03 K/uL (0.00-0.02) Anion Gap 10.0 mmol/L (3-11) Est Creatinine Clear Calc Drug Dose 8.9 ml/min Estimated GFR () 8.3 Estimated GFR (Non- 7.1 BUN/Creatinine Ratio 5.7 (10-20) Calcium Level 9.1 mg/dl (8.5-10.1) Total Creatine Kinase 35 U/L (26-192) Creatine Kinase MB 1.1 ng/ml (0.5-3.6) Creatine Kinase MB Ratio 3.1 (0-3.0) Troponin I 0.026 ng/ml (0-0.045) Laboratory results as reviewed by me. Medications Administered Medications (Trade) Dose Ordered Sig/Tyesha Route Start Time Stop Time Status Last Admin Dose Admin Fentanyl Citrate (Fentanyl Inj) 25 mcg NOW STAT IV 01/25/18 13:26 01/25/18 13:28 DC 01/25/18 13:41 25 MCG Oxycodone HCl (Roxicodone Immediate Rel Tab) 5 mg NOW STAT PO 01/25/18 17:14 01/25/18 17:15 DC 01/25/18 17:26 5 MG Oxycodone HCl (Roxicodone Immediate Rel 5MG Home Pack) 1 homepack UD ONCE PO 01/25/18 17:15 01/25/18 17:16 DC 01/25/18 17:26 1 HOMEPACK ECG Per My Interpretation Indication: chest pain Rate (beats per minute): 70 Rhythm: other (AV paced) Findings: no acute ischemic change, no ectopy, other (QTc of 585) ED Course 1225: The patient was evaluated in room C12B. A complete history and physical exam was performed. 1326: I checked on the patient and she states that lying in bed makes her pain worse. 1707: I checked on the patient. I offered admission and further chest imaging studies which she declined. The family is at bedside and her son notes that she hurt her hand at dialysis yesterday. The patient states that she has Percocet at home for her long history of pain but is unsure of how much she has and would like a few pills. 1730: Reevaluated the patient. Discussed results and discharge instructions: She verbalized understanding and agreement. The patient is ready for discharge. Medical Decision Differential: Cardiac Ischemia (STEMI, NSTEMI, Unstable Angina, etc), Aortic Dissection, Arrhythmia, Pulmonary Embolism, Pneumonia, Pneumothorax, MSK, Infectious, Pericarditis/Myocarditis, Esophageal Rupture, Gastrointestinal, amongst other pathologies entertained. 72 yr old female arrives for complaint of left chest pain. Apparently was quite upset yesterday and may have injured chest during dialysis during this? She has clearly reproducible left chest TTP and worse with movement. Laying still in no distress. Did have some pain with xray thus fentanyl. 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 She has some congestive findings on CXR but not hypoxic nor SOB by exam. Not gaining weight ether. Mild edema in legs with patient notes later is unremarkable. EKG unremrakble. Trop wnl after a day of symptoms thus no indication for second set. Symptoms not consistent with ACS. Seems very unlikely PE and with negative bilateral duplex, normal O2 on her NC and no tachy I do not feel this is pe. Furthermore she is allergic to dye and thus would want to avoid it anyway. No esophageal issues to suspect. She does not have symptoms nor findings of aortic dissection nor rupture. She is comfortable. I did offer to bring her in given history and left sided chest pain but she is adamant (in front of family as well) about going home. She admits long history of muscular issues which she periodically uses Percocet for thus will send with a few Oxy IR. This does seem very much MSK in nature. No evidence rash at this time. Aware she can return at any time and call 911 if concerning/worsening symptoms. Medication Reconcilliation Current Medication List: was personally reviewed by me Blood Pressure Screening Patient's blood pressure: Normal blood pressure Blood pressure disposition: Did not require urgent referral Impression Primary Impression: Left sided chest pain Scribe Attestation The scribe's documentation has been prepared under my direction and personally reviewed by me in its entirety. I confirm that the note above accurately reflects all work, treatment, procedures, and medical decision making performed by me. Departure Information Dispostion Home / Self-Care Referrals Subhash Mo M.D. (PCP) Patient Instructions ED Chest Pain Atypical Unkn Cause, My [facility] Additional Instructions You have received a narcotic pain medication prescription. These medications may cause drowsiness and should not be used with other sedative medications. Do not drive, drink alcohol, perform dangerous activities, nor make important decisions after taking these medications. alf use or inappropriate use may lead to addiction.
[2018-01-25] MEDS ORDERED: LEVO50TA6 PO (12:48)
[2018-01-25] MEDS ORDERED: INSU100I SQ (12:48)
[2018-01-25] MEDS ORDERED: MIDO10TA PO (12:48)
--- NOTE | 2018-01-25 12:49 | DIAGNOSTIC IMAGING REPORT ---
CHEST ONE VIEW PORTABLE CLINICAL HISTORY: Chest Pain dyspnea COMPARISON STUDY: 11/04/2017 FINDINGS: Mild cardia megaly. Bipolar cardiac pacemaker. Comment pulmonary vasculature. Diaphragms are smooth. IMPRESSION: Congestive heart failure The above report was generated using voice recognition software. It may contain grammatical, syntax or spelling errors. Electronically signed by: Ben Carranza M.D. 01/25/2018 12:48 PM Dictated Date/Time: 01/25/2018 12:48 PM
[2018-01-25] MEDS ORDERED: FENTANYL CITRATE INJ 50 MCG/1 ML 2 ML VIAL IV STA (13:26)
[2018-01-25 13:29] LABS: BASO % 0.3 %; BASO ABS # 0.02 K/uL (0-0.2); EOS % 0.9 %; EOS ABS # 0.06 K/uL (0-0.5); HEMATOCRIT 37.6 % (37-47); HEMOGLOBIN 11.8 g/dL (12.0-16.0); IG# 0.03 K/uL (0.00-0.02); LYMPH % 8.7 %; LYMPH ABS # 0.59 K/uL (1.2-3.4); MEAN CELL VOLUME 101.9 fL (80-100); MEAN CORPUSCULAR HGB CONC 31.4 g/dl (32-36); MEAN PLATELET VOLUME 10.9 fL (7.4-10.4); MONO % 5.6 %; MONO ABS # 0.38 K/uL (0.11-0.59); NEUT % 84.1 %; PLATELET COUNT 102 K/uL (130-400); RED CELL DISTRIBUTION WIDTH CV 15.1 % (11.5-14.5); RED CELL DISTRIBUTION WIDTH SD 55.6 fL (36.4-46.3); WHITE BLOOD COUNT 6.78 K/uL (4.8-10.8)
[2018-01-25 13:58] LABS: CALCIUM 9.1 mg/dl (8.5-10.1); CKMB 1.1 ng/ml (0.5-3.6); CREATININE 5.45 mg/dl (0.60-1.20); POTASSIUM 3.8 mmol/L (3.5-5.1)
--- NOTE | 2018-01-25 16:46 | DIAGNOSTIC IMAGING REPORT ---
VENOUS DOPPLER LWR EXT BILA CLINICAL HISTORY: 72 years-old Female presenting with bilateral lower leg swelling, history of DVT/PE. TECHNIQUE: Real-time grayscale and color and spectral Doppler ultrasound imaging of the veins of the bilateral lower extremities was performed. Compression and augmentation were also utilized. COMPARISON: None. FINDINGS: Right: Common femoral vein: Patent. Greater saphenous vein: Patent. Deep femoral vein: Patent. Femoral vein: Patent. Popliteal vein: Patent. Calf veins: Patent. Left: Common femoral vein: Patent. Greater saphenous vein: Patent. Deep femoral vein: Patent. Femoral vein: Patent. Popliteal vein: Patent. Calf veins: Patent. Other: None. IMPRESSION: No evidence of deep venous thrombosis. Electronically signed by: Rock Ontiveros M.D. 01/25/2018 4:45 PM Dictated Date/Time: 01/25/2018 4:43 PM
[2018-01-25] MEDS ORDERED: OXYCODONE HCL IR 5 MG TAB (IMMEDIATE RELEASE) PO STA (17:14)
[2018-01-25] MEDS ORDERED: OXYCODONE IR HOME PACK PO ONE (17:15)
[2018-01-25 17:49] VITALS: BP 112/60; PULSE 70; O2SAT 97
[2018-01-26] MEDS ORDERED: ASPEC81 PO (14:54)
== END 2018-01-25 17:30 | disposition home or self-care (01) ==
LOC: EDBD 12:00 → C.EDC 12:01
DX: R07.9 Chest pain, unspecified (principal); I48.91 Unspecified atrial fibrillation; I51.7 Cardiomegaly; I13.2 Hypertensive heart and chronic kidney disease with heart failure and with stage 5 chronic kidney disease, or end stage renal disease; N18.6 End stage renal disease; E11.22 Type 2 diabetes mellitus with diabetic chronic kidney disease; E11.40 Type 2 diabetes mellitus with diabetic neuropathy, unspecified; F41.1 Generalized anxiety disorder; E78.5 Hyperlipidemia, unspecified; E87.5 Hyperkalemia; K21.9 Gastro-esophageal reflux disease without esophagitis; G47.33 Obstructive sleep apnea (adult) (pediatric); E66.2 Morbid (severe) obesity with alveolar hypoventilation; I27.20 Pulmonary hypertension, unspecified; Z99.2 Dependence on renal dialysis; Z86.711 Personal history of pulmonary embolism; Z86.73 Personal history of transient ischemic attack (TIA), and cerebral infarction without residual deficits; Z85.820 Personal history of malignant melanoma of skin; Z95.0 Presence of cardiac pacemaker; Z95.828 Presence of other vascular implants and grafts; Z90.710 Acquired absence of both cervix and uterus; Z90.49 Acquired absence of other specified parts of digestive tract; Z83.3 Family history of diabetes mellitus; Z79.82 Long term (current) use of aspirin; Z79.4 Long term (current) use of insulin; Z91.041 Radiographic dye allergy status; Z91.048 Other nonmedicinal substance allergy status; Z88.6 Allergy status to analgesic agent; Z88.8 Allergy status to other drugs, medicaments and biological substances; Z91.018 Allergy to other foods

== ENCOUNTER 2018-01-26 10:49 | Inpatient (IN) | payer OTHER ==
[2018-01-26] VITALS (10 sets, daily range): BP systolic 102–136; BP diastolic 59–82; PULSE 69–72; TEMP 36.4–36.5; O2SAT 94–98; Ht 152.4 cm; Wt 86.9 kg
[~2018-01-26] VITALS: Ht 152.4 cm; Wt 86.9 kg
[~2018-01-26 10:49] MED LIST changes: -CARV3.122 PO; +INSU100I SQ; -INSU100I2 SC; -LEVO25TA PO; +LEVO50TA6 PO; +MIDO10TA PO
[2018-01-26] MEDS ORDERED: HYDROmorphone INJ 0.5 MG/0.5 ML SYR IV STA ×3 (11:41→14:19)
[2018-01-26] MEDS ORDERED: OPTIRAY 320 IV PRN (12:00)
[2018-01-26 12:05] LABS: BASO % 0.3 %; BASO ABS # 0.02 K/uL (0-0.2); EOS % 1.8 %; EOS ABS # 0.12 K/uL (0-0.5); HEMATOCRIT 38.4 % (37-47); HEMOGLOBIN 12.1 g/dL (12.0-16.0); IG# 0.02 K/uL (0.00-0.02); LYMPH % 12.2 %; LYMPH ABS # 0.83 K/uL (1.2-3.4); MEAN CELL VOLUME 102.1 fL (80-100); MEAN CORPUSCULAR HEMOGLOBIN 32.2 pg (25-34); MEAN CORPUSCULAR HGB CONC 31.5 g/dl (32-36); MEAN PLATELET VOLUME 11.2 fL (7.4-10.4); MONO % 5.6 %; MONO ABS # 0.38 K/uL (0.11-0.59); NEUT % 79.8 %; NEUT ABS # 5.43 K/uL (1.4-6.5); PLATELET COUNT 113 K/uL (130-400); RED CELL DISTRIBUTION WIDTH CV 14.9 % (11.5-14.5); RED CELL DISTRIBUTION WIDTH SD 54.5 fL (36.4-46.3)
--- NOTE | 2018-01-26 12:17 | DIAGNOSTIC IMAGING REPORT ---
CHEST ONE VIEW PORTABLE CLINICAL HISTORY: severe r chest pain dyspnea COMPARISON STUDY: 01/25/2018 FINDINGS: Stable moderate cardiomegaly. Implantable cardiac pacemaker. Comment pulmonary vasculature. IMPRESSION: Congestive heart failure The above report was generated using voice recognition software. It may contain grammatical, syntax or spelling errors. Electronically signed by: Ben Carranza M.D. 01/26/2018 12:15 PM Dictated Date/Time: 01/26/2018 12:15 PM
[2018-01-26 12:30] LABS: ALBUMIN 3.3 gm/dl (3.4-5.0); CREATININE 7.1 mg/dl (0.60-1.20); POTASSIUM 4.1 mmol/L (3.5-5.1); TOTAL PROTEIN 7.2 gm/dl (6.4-8.2)
--- NOTE | 2018-01-26 12:52 | DIAGNOSTIC IMAGING REPORT ---
THORACIC SPINE WITHOUT CT DOSE: HISTORY: Pain mid t spine pain TECHNIQUE: Multiaxial CT images of the thoracic spine were performed and reformatted in the sagittal and coronal plane without the use of contrast. A dose lowering technique was utilized adhering to the principles of ALARA. COMPARISON: None. FINDINGS: No fractures. No subluxation. Paraspinal soft tissues are unremarkable. Moderate degenerative disc change throughout. No evidence for compression deformity. IMPRESSION: Degenerative disc changes throughout. No evidence for an acute bony abnormality. Osteopenia. The above report was generated using voice recognition software. It may contain grammatical, syntax or spelling errors. Electronically signed by: Ben Carranza M.D. 01/26/2018 12:50 PM Dictated Date/Time: 01/26/2018 12:48 PM
--- NOTE | 2018-01-26 12:56 | DIAGNOSTIC IMAGING REPORT ---
(CHEST FOR PE) ANGIO WITH CT DOSE: 665.09 mGy.cm HISTORY: Chest pain dyspnea TECHNIQUE: Multiaxial CT images of the chest were performed following the intravenous administration of contrast to evaluate the pulmonary arteries. Maximal intensity projection images were also obtained. A dose lowering technique was utilized adhering to the principles of ALARA. COMPARISON STUDY: 09/23/2017 FINDINGS: There is a normal caliber thoracic aorta with no evidence for dissection. There is no evidence for pulmonary embolus. No pleural effusions. No pneumothorax. The liver and spleen are unremarkable. No mediastinal or hilar lymphadenopathy. The central airways are patent. Prominent pulmonary vasculature. Bibasilar interstitial and/or atelectatic change. Permanent bipolar cardiac pacemaker. IMPRESSION: 1. No evidence for pulmonary embolus. 2. Mild bibasilar interstitial and/or atelectatic change. 3. Mild congestive failure. The above report was generated using voice recognition software. It may contain grammatical, syntax or spelling errors. Electronically signed by: Ben Carranza M.D. 01/26/2018 12:54 PM Dictated Date/Time: 01/26/2018 12:51 PM
[2018-01-26] MEDS ORDERED: ASPEC81 PO (14:54)
[2018-01-26] MEDS ORDERED: CLONAZEPAM 0.5 MG TAB PO PRN (15:00)
[2018-01-26] MEDS ORDERED: NITROGLYCERIN 0.4 MG SL PER TAB CHARGE UT SCH (15:00)
[2018-01-26] MEDS ORDERED: ACETAMINOPHEN 325 MG TAB PO PRN (15:00)
[2018-01-26] MEDS ORDERED: GLUCAGON FOR INJ 1 MG VIAL SQ PRN (15:00)
[2018-01-26] MEDS ORDERED: ALUMINUM/MAGNESIUM/SIMETH (MAALOX MAX) 30 ML UDC PO PRN (15:00)
[2018-01-26] MEDS ORDERED: GLUCOSE 40% GEL 15 GM TUBE PO PRN (15:00)
[2018-01-26] MEDS ORDERED: DEXTROSE 50% 50 ML SYR IV PRN (15:00)
[2018-01-26] MEDS ORDERED: ALBUT/IPRATROP 3MG/0.5MG NEB 3 ML VIAL INH PRN (15:00)
[2018-01-26] MEDS ORDERED: GLUCOSE 10 TABS/TUBE PO PRN (15:00)
[2018-01-26] MEDS ORDERED: IV FLUIDS COMPLETED PRN (15:15)
[2018-01-26] MEDS ORDERED: HEPARIN SOD (PORCINE) 1000 UNIT/ML 10 ML VIAL IV SCH ×2 (16:45)
[2018-01-26] MEDS ORDERED: HYDROmorphone INJ 0.5 MG/0.5 ML SYR ONE (16:52)
[2018-01-26] MEDS ORDERED: OXYCODONE/ACETAMINOPHEN 5-325 TAB ONE (16:53)
--- NOTE | 2018-01-26 17:13 | EMERGENCY ROOM VISIT NOTE ---
History Report prepared by Scribe: Rebecca Phan Under the Supervision of: Dr. William Victoria D.O. First contact with patient: 11:31 Chief Complaint: RIB PAIN Stated Complaint: BREAST PAIN History of Present Illness The patient is a 72 year old female who presents to the Emergency Room with complaints of worsening left breast and rib pain for the past 1 week. She was brought to the ED via EMS. She rates her pain as a 6/10 in severity. Fentanyl given in the field has provided minimal relief. Movement and deep inspiration worsens her pain. Pain worsens with any movement of the left upper extremity. The patient denies any known injury the area. She reports she was supposed to be dialyzed (she undergoes dialysis Tuesdays, and Saturdays), but was in so much pain that she was advised to come to the ED when she called the dialysis clinic. She was last dialyzed on , 2 days [employer]. She has been on dialysis for 4 years. She is on Oxygen in the ED for comfort and states she uses it at home as needed, and wears Bi-Pap at night. The patient states she fell in November of 2017, but denies any other recent falls. She was seen here in the ED yesterday for the same symptoms and produced a negative duplex of the LE's. Pt denies headache, change in vision, fevers, shortness of breath, nausea , vomiting, diarrhea, pain with urination, melena or weakness or numbness in the arms or legs. Source of History: patient, EMS Onset: 1 week [employer] Position: chest (left breast and rib area) Symptom Intensity: 6/10 Timing: worsening Modifying Factors (Worsening): breathing (deep inspiration), movement Modifying Factors (Relieving): narcotics (Fentanyl) Associated Symptoms: + nausea, No fevers, No headache, No chest pain, No SOB , No vomiting, No diarrhea, No urinary symptoms, No weakness (in the arms or legs) Review of Systems See HPI for pertinent positives & negatives. A total of 10 systems reviewed and were otherwise negative. Past Medical & Surgical Medical Problems: (1) Atrial fibrillation (2) Cardiomegaly (3) Chest pain (4) CHF (congestive heart failure) (5) Diabetic neuropathy (6) DM2 (diabetes mellitus, type 2) (7) End stage renal disease (8) ESRD (end stage renal disease) (9) AC (generalized anxiety disorder) (10) GERD (gastroesophageal reflux disease) (11) Healed or old pulmonary embolism (12) Heart failure (13) HLD (hyperlipidemia) (14) HTN (hypertension) (15) Hyperkalemia (16) Melanoma (17) Obesity hypoventilation syndrome (18) [place] (obstructive sleep apnea) (19) Pacemaker (20) Pulmonary HTN (21) SOB (shortness of breath) (22) TIA (transient ischemic attack) Surgical Problems: (1) H/O total hysterectomy (2) S/P cholecystectomy (3) S/P IVC filter Family History Diabetes mellitus FH: heart disease FATHER MOTHER Kidney disease Social History Smoking Status: Former Smoker Alcohol Use: none Drug Use: none Marital Status: Housing Status: lives alone Occupation Status: retired Current/Historical Medications Scheduled Amiodarone Hcl (Cordarone), 200 MG PO DAILY Aspirin (Aspirin EC Low Dose), 81 MG PO DAILY Atorvastatin (Lipitor), 40 MG PO QPM Calcium Acetate (Phosphate Bin (Calcium Acetate), 667 MG PO QPM Clonazepam (Clonazepam), 0.25 MG PO 3XWK Esomeprazole Magnesium (Nexium), 40 MG PO QPM Fluticasone Propionate (Nasal) (Flonase Allergy Relief), 2 SPRAYS NA DAILY Gabapentin (Neurontin), 200 MG PO BID Insulin Glargine (Lantus), 10 UNITS SC HS Insulin Lispro (Human) (Humalog), 5 UNITS SQ TIDM Levothyroxine Sodium (Levothyroxine Sodium), 50 MCG PO UD Midodrine Hcl (Midodrine Hcl), 10 MG PO 3XWK Multiple Vitamin (Multivitamin), 1 TAB PO QAM Nitroglycerin (Nitrostat), 0.4 MG UT PRN Sertraline Hcl (Zoloft), 100 MG PO HS Scheduled PRN Acetaminophen (Tylenol Extra Strength), 1,000-2,000 MG PO Q4HPRN PRN for Pain Albuterol Sulfate (Proventil Hfa), 2 PUFF INH Q6H PRN for Wheezing Clonazepam (Klonopin), 0.25 MG PO HS PRN for Anxiety Guaifenesin (Organ-I Nr), 200 MG PO Q8H PRN for Cough Home O2 Therapy (Oxygen), 2 LITERS NA HS PRN for Sleep Ipratropium-Albuterol (Duoneb), 3 ML INH Q4H PRN for SOB/Wheezing Lorazepam (Ativan), 0.5 MG PO TID PRN for Anxiety/Agitation Oxycodone/Acetaminophen 5MG/325MG (Percocet 5MG/325MG), 1 TABLET PO Q6H PRN for Pain Ranitidine (Zantac), 150 MG PO BID PRN for Heartburn Allergies Coded Allergies: Iodinated Diagnostic Agents (Verified Allergy, Mild, "Contrast Media" -- unknown rxn, 01/25/18) Adhesives (Verified Allergy, Unknown, "Tape" -- unknown rxn, 01/25/18) Morphine (Unverified Allergy, Unknown, UNKNOWN, 01/25/18) Warfarin (Unverified Allergy, Unknown, HYPERSENSITIVITY/BLEEDING, 01/25/18) Tomato (Verified Adverse Reaction, Intermediate, GI SYMPTOMS, 01/25/18) Tomato products cause diarrhea. Physical Exam Vital Signs Date Time Temp Pulse Resp B/P (MAP) Pulse Ox O2 Delivery O2 Flow Rate FiO2 01/26/18 15:50 71 12 106/59 97 Nasal Cannula 2.0 01/26/18 15:08 97 Nasal Cannula 3.0 01/26/18 15:00 70 12 136/75 98 Room Air 2.0 01/26/18 14:32 70 18 133/75 97 Nasal Cannula 3.0 01/26/18 13:41 71 16 166/61 98 Room Air 01/26/18 13:07 70 01/26/18 12:47 70 14 123/63 96 Room Air 2.0 01/26/18 12:02 70 16 130/67 97 Room Air 01/26/18 11:08 92 Room Air 2.0 01/26/18 11:00 70 01/26/18 11:00 37.3 70 20 129/74 94 Nasal Cannula 2.0 Physical Exam GENERAL: Sitting up in bed, alert, well nourished, in moderate distress, holding left breast with right arm, non-toxic EYE EXAM: normal conjunctiva. OROPHARYNX: no exudate, no erythema, lips, buccal mucosa, and tongue normal and mucous membranes are moist NECK: supple, no nuchal rigidity, no adenopathy, non-tender LUNGS: Clear to auscultation. Normal chest wall mechanics HEART: no murmurs, S1 normal and S2 normal CHEST: Acute reproducible tenderness under left breast tracking to left mid- thoracic region. Pain worsens with palpation, twisting, turning and movement of left upper extremity. ABDOMEN: abdomen soft, non-tender, normo-active bowel sounds, no masses, no rebound or guarding. BACK: Back is symmetrical on inspection and there is no deformity, no midline tenderness, no CVA tenderness. SKIN: no rashes and no bruising UPPER EXTREMITIES: Fistula in left upper extremity, upper extremities are grossly normal. LOWER EXTREMITIES: No pitting edema. NEURO EXAM: Normal sensorium, cranial nerves II-XII grossly intact, normal speech, no gross weakness of arms, no gross weakness of legs. Gross sensation intact. Medical Decision & Procedures ER Provider Diagnostic Interpretation: Radiology results as stated below per my review and the radiologist's interpretation: THORACIC SPINE WITHOUT CT DOSE: HISTORY: Pain mid t spine pain TECHNIQUE: Multiaxial CT images of the thoracic spine were performed and reformatted in the sagittal and coronal plane without the use of contrast. A dose lowering technique was utilized adhering to the principles of ALARA. COMPARISON: None. FINDINGS: No fractures. No subluxation. Paraspinal soft tissues are unremarkable. Moderate degenerative disc change throughout. No evidence for compression deformity. IMPRESSION: Degenerative disc changes throughout. No evidence for an acute bony abnormality. Osteopenia. The above report was generated using voice recognition software. It may contain grammatical, syntax or spelling errors. Electronically signed by: Ben Carranza M.D. 01/26/2018 12:50 PM CHEST ONE VIEW PORTABLE CLINICAL HISTORY: severe r chest pain dyspnea COMPARISON STUDY: 01/25/2018 FINDINGS: Stable moderate cardiomegaly. Implantable cardiac pacemaker. Comment pulmonary vasculature. IMPRESSION: Congestive heart failure The above report was generated using voice recognition software. It may contain grammatical, syntax or spelling errors. Electronically signed by: Ben Carranza M.D. 01/26/2018 12:15 PM (CHEST FOR PE) ANGIO WITH CT DOSE: 665.09 mGy.cm HISTORY: Chest pain dyspnea TECHNIQUE: Multiaxial CT images of the chest were performed following the intravenous administration of contrast to evaluate the pulmonary arteries. Maximal intensity projection images were also obtained. A dose lowering technique was utilized adhering to the principles of ALARA. COMPARISON STUDY: 09/23/2017 FINDINGS: There is a normal caliber thoracic aorta with no evidence for dissection. There is no evidence for pulmonary embolus. No pleural effusions. No pneumothorax. The liver and spleen are unremarkable. No mediastinal or hilar lymphadenopathy. The central airways are patent. Prominent pulmonary vasculature. Bibasilar interstitial and/or atelectatic change. Permanent bipolar cardiac pacemaker. IMPRESSION: 1. No evidence for pulmonary embolus. 2. Mild bibasilar interstitial and/or atelectatic change. 3. Mild congestive failure. The above report was generated using voice recognition software. It may contain grammatical, syntax or spelling errors. Electronically signed by: Ben Carranza M.D. 01/26/2018 12:54 PM Laboratory Results 01/26/18 11:50 Red Blood Count 3.76, Mean Corpuscular Volume 102.1, Mean Corpuscular Hemoglobin 32.2, Mean Corpuscular Hemoglobin Concent 31.5, Mean Platelet Volume 11.2, Neutrophils (%) (Auto) 79.8, Lymphocytes (%) (Auto) 12.2, Monocytes (%) ( Auto) 5.6, Eosinophils (%) (Auto) 1.8, Basophils (%) (Auto) 0.3, Neutrophils # ( Auto) 5.43, Lymphocytes # (Auto) 0.83, Monocytes # (Auto) 0.38, Eosinophils # ( Auto) 0.12, Basophils # (Auto) 0.02 01/26/18 11:50 Test 01/26/18 11:50 White Blood Count 6.80 K/uL (4.8-10.8) Red Blood Count 3.76 M/uL (4.2-5.4) Hemoglobin 12.1 g/dL (12.0-16.0) Hematocrit 38.4 % (37-47) Mean Corpuscular Volume 102.1 fL (80-100) Mean Corpuscular Hemoglobin 32.2 pg (25-34) Mean Corpuscular Hemoglobin Concent 31.5 g/dl (32-36) Platelet Count 113 K/uL (130-400) Mean Platelet Volume 11.2 fL (7.4-10.4) Neutrophils (%) (Auto) 79.8 % Lymphocytes (%) (Auto) 12.2 % Monocytes (%) (Auto) 5.6 % Eosinophils (%) (Auto) 1.8 % Basophils (%) (Auto) 0.3 % Neutrophils # (Auto) 5.43 K/uL (1.4-6.5) Lymphocytes # (Auto) 0.83 K/uL (1.2-3.4) Monocytes # (Auto) 0.38 K/uL (0.11-0.59) Eosinophils # (Auto) 0.12 K/uL (0-0.5) Basophils # (Auto) 0.02 K/uL (0-0.2) RDW Standard Deviation 54.5 fL (36.4-46.3) RDW Coefficient of Variation 14.9 % (11.5-14.5) Immature Granulocyte % (Auto) 0.3 % Immature Granulocyte # (Auto) 0.02 K/uL (0.00-0.02) Anion Gap 10.0 mmol/L (3-11) Est Creatinine Clear Calc Drug Dose 6.8 ml/min Estimated GFR () 6.0 Estimated GFR (Non- 5.2 BUN/Creatinine Ratio 6.1 (10-20) Calcium Level 9.0 mg/dl (8.5-10.1) Total Bilirubin 0.5 mg/dl (0.2-1) Direct Bilirubin 0.3 mg/dl (0-0.2) Aspartate Amino Transf (AST/SGOT) 20 U/L (15-37) Alanine Aminotransferase (ALT/SGPT) 24 U/L (12-78) Alkaline Phosphatase 233 U/L (45-117) Total Protein 7.2 gm/dl (6.4-8.2) Albumin 3.3 gm/dl (3.4-5.0) Lipase 86 U/L (73-393) Laboratory results per my review. Medications Administered Medications (Trade) Dose Ordered Sig/Tyesha Route Start Time Stop Time Status Last Admin Dose Admin Hydromorphone HCl (Dilaudid Inj) 0.5 mg NOW STAT IV 01/26/18 11:41 01/26/18 11:43 DC 01/26/18 12:04 0.5 MG Hydromorphone HCl (Dilaudid Inj) 0.5 mg NOW STAT IV 01/26/18 14:17 01/26/18 14:18 DC 01/26/18 14:30 0.5 MG ECG Per My Interpretation Indication: SOB/dyspnea Rate (beats per minute): 70 Rhythm: other (AV dual paced) Findings: LBBB, left axis deviation Change: no significant change (No change from prior EKG) ED Course ED COURSE: Vital signs were reviewed and showed the patient is situationally hypertensive The patients medical record was reviewed The above diagnostic studies were performed and reviewed. ED treatments and interventions as stated above. 1134: The patient was evaluated in room B5. A complete history and physical examination was performed. 1141: Dilaudid 0.5 mg IV. 1415: Upon reevaluation, the patient is still in pain. I discussed my findings with the patient and she understands and agrees with the treatment plan. 1417: Dilaudid 0.5 mg IV. Based on the patients age, coexisting illnesses, exam and lab findings the decision to treat as an inpatient was made. 1430: [facility] The patient will be further evaluated. The patient remained stable while under my care. The patient will be evaluated for further management. Medical Decision Differential diagnoses includes but is not limited to acute coronary syndrome, myocardial infarction, pericarditis, pulmonary embolus, aortic dissection, pneumonia, pneumothorax, musculoskeletal, shingles, esophageal. Patient is a 72-year-old female that was seen here yesterday for left-sided chest pain. On exam she has complete reproducible anterior chest wall pain. This tracks under her breasts, into her flank and into her left back. Pain is significantly worsened with movement of her left upper extremity or palpation. This is not cardiac in nature. EKG is unremarkable. I did not check a troponin. CBC was unremarkable. BMP with a creatinine of 7. Potassium was 4.1. BSG was slightly elevated. CT PE was performed as patient has no contrast allergy but notes that someone told her she should not receive contrast as she has kidney issues. Patient family were updated at bedside. She was given IV narcotics on multiple occasions. She is unable to sit up to get out of bed due to this I did discuss case with internal medicine for observation. Medication Reconcilliation Current Medication List: was personally reviewed by me Blood Pressure Screening Patient's blood pressure: Elevated blood pressure Blood pressure disposition: Elevated BP felt to be situational Consults Time Called: 1420 Consulting Physician: Dr. Buddy, [facility] Returned Call: 1430 I discussed the patients case with Kassandra Maldonado Hospitalist. The patient will be further evaluated. Impression Primary Impression: Musculoskeletal chest pain Scribe Attestation The scribe's documentation has been prepared under my direction and personally reviewed by me in its entirety. I confirm that the note above accurately reflects all work, treatment, procedures, and medical decision making performed by me. Departure Information Dispostion Being Evaluated By Hospitalist Referrals Subhash Mo M.D. (PCP) Patient Instructions My [facility]
--- NOTE | 2018-01-26 19:23 | History and Physical ---
History & Physical Date & Time of Service: Jan 26, 2018 at 18:59 Chief Complaint: Esrd, Rib Contusion Primary Care Physician: Subhash Mo M.D. History of Present Illness Source: patient, family, clinic records, hospital records This is a 72 year old female with a PMH of ESRD on HD ; sinus node dysfunction s/p permanent pacemaker in situ; insulin dependent DM2; EVERTON with nocturnal bipap use; idiopathic cardiomyopathy and systolic CHF with EF ~ 40%; hx. of atrial fibrillation no longer on anticoagulation due to hemopericardium; pulmonary HTN, HLD - presents with L sided chest pain. Patient presented to the ED on 01/25 with similar symptoms; she was discharged due to chest pain being reproducible and w/up at the time being negative. She presented back to the ED due to worsening L sided chest pain; axillary pain. The pain is worse with palpation. Chest CT performed and negative. Initial cardiac enzymes negative. Patient was supposed to go for dialysis today, but missed it. Minimal shortness of breath with exertion. Past Medical/Surgical History Medical Problems: (1) Altered mental status (2) Ankle sprain (3) Atrial fibrillation (4) Bronchitis (5) Cardiomegaly (6) Chest pain (7) CHF (congestive heart failure) (8) CHF (congestive heart failure) (9) Chronic back pain (10) Diabetic neuropathy (11) DM2 (diabetes mellitus, type 2) (12) AGUILERA (dyspnea on exertion) (13) Elevated troponin (14) End stage renal disease (15) ESRD (end stage renal disease) (16) Exertional chest pain (17) Fall (18) Falls (19) AC (generalized anxiety disorder) (20) GERD (gastroesophageal reflux disease) (21) Healed or old pulmonary embolism (22) Heart failure (23) Heat exhaustion (24) HLD (hyperlipidemia) (25) HTN (hypertension) (26) Hyperkalemia (27) Left sided chest pain (28) Leg pain, right (29) Low back pain potentially associated with radiculopathy (30) Melanoma (31) Nausea (32) Obesity hypoventilation syndrome (33) Orthostatic hypotension (34) EVERTON (obstructive sleep apnea) (35) Pacemaker (36) Pulmonary HTN (37) Rib contusion (38) Sciatica (39) Shortness of breath (40) SI (sacroiliac) joint dysfunction (41) SOB (shortness of breath) (42) TIA (transient ischemic attack) (43) Upper respiratory infection Surgical Problems: (1) H/O total hysterectomy (2) S/P cholecystectomy (3) S/P IVC filter Family History Diabetes mellitus FH: heart disease FATHER MOTHER Kidney disease Social History Smoking Status: Former Smoker Drug Use: none Marital Status: Housing status: lives alone Occupational Status: retired Immunizations History of Influenza Vaccine: Yes History of Tetanus Vaccine?: Yes History of Pneumococcal: Yes History of Hepatitis B Vaccine: No Allergies Coded Allergies: Iodinated Diagnostic Agents (Verified Allergy, Mild, "Contrast Media" -- unknown rxn, 01/25/18) Adhesives (Verified Allergy, Unknown, "Tape" -- unknown rxn, 01/25/18) Morphine (Unverified Allergy, Unknown, UNKNOWN, 01/25/18) Warfarin (Unverified Allergy, Unknown, HYPERSENSITIVITY/BLEEDING, 01/25/18) Tomato (Verified Adverse Reaction, Intermediate, GI SYMPTOMS, 01/25/18) Tomato products cause diarrhea. Home Medications Scheduled Amiodarone Hcl (Cordarone), 200 MG PO DAILY Aspirin (Aspirin EC Low Dose), 81 MG PO DAILY Atorvastatin (Lipitor), 40 MG PO QPM Calcium Acetate (Phosphate Bin (Calcium Acetate), 667 MG PO QPM Clonazepam (Clonazepam), 0.25 MG PO 3XWK Esomeprazole Magnesium (Nexium), 40 MG PO QPM Fluticasone Propionate (Nasal) (Flonase Allergy Relief), 2 SPRAYS NA DAILY Gabapentin (Neurontin), 200 MG PO BID Insulin Glargine (Lantus), 10 UNITS SC HS Insulin Lispro (Human) (Humalog), 5 UNITS SQ TIDM Levothyroxine Sodium (Levothyroxine Sodium), 50 MCG PO UD Midodrine Hcl (Midodrine Hcl), 10 MG PO 3XWK Multiple Vitamin (Multivitamin), 1 TAB PO QAM Nitroglycerin (Nitrostat), 0.4 MG UT PRN Sertraline Hcl (Zoloft), 100 MG PO HS Scheduled PRN Acetaminophen (Tylenol Extra Strength), 1,000-2,000 MG PO Q4HPRN PRN for Pain Albuterol Sulfate (Proventil Hfa), 2 PUFF INH Q6H PRN for Wheezing Clonazepam (Klonopin), 0.25 MG PO HS PRN for Anxiety Guaifenesin (Organ-I Nr), 200 MG PO Q8H PRN for Cough Home O2 Therapy (Oxygen), 2 LITERS NA HS PRN for Sleep Ipratropium-Albuterol (Duoneb), 3 ML INH Q4H PRN for SOB/Wheezing Lorazepam (Ativan), 0.5 MG PO TID PRN for Anxiety/Agitation Oxycodone/Acetaminophen 5MG/325MG (Percocet 5MG/325MG), 1 TABLET PO Q6H PRN for Pain Ranitidine (Zantac), 150 MG PO BID PRN for Heartburn Review of Systems Constitutional: No fever, No chills Eyes: No worsening of vision ENT: No hearing loss Respiratory: + dyspnea on exertion, No cough, No sputum, No wheezing, No shortness of breath, No dyspnea at rest, No hemoptysis Cardiovascular: + chest pain, No edema, No palpitations Abdomen: No pain, No nausea, No vomiting, No diarrhea, No constipation, No GI bleeding Musculoskeletal: No joint pain, No muscle pain Genitourinary - Female: No dysuria, No urinary frequency Neurologic: No memory loss, No paralysis, No weakness, No numbness/tingling, No vertigo, No balance problems Psychiatric: No depression symptoms, No anxiety, No insomnia Endocrine: No fatigue Hematologic / Lymphatic: No abnormal bleeding/bruising Integumentary: No rash Allergic / Immunologic: No environmental allergies, No seasonal allergies Physical Exam Vital Signs Date Time Temp Pulse Resp B/P (MAP) Pulse Ox O2 Delivery O2 Flow Rate FiO2 01/26/18 16:10 36.5 70 14 136/82 (100) 98 Nasal Cannula 4.0 01/26/18 15:50 71 12 106/59 97 Nasal Cannula 2.0 01/26/18 15:08 97 Nasal Cannula 3.0 01/26/18 15:00 70 12 136/75 98 Room Air 2.0 01/26/18 14:32 70 18 133/75 97 Nasal Cannula 3.0 01/26/18 13:41 71 16 166/61 98 Room Air 01/26/18 13:07 70 01/26/18 12:47 70 14 123/63 96 Room Air 2.0 01/26/18 12:02 70 16 130/67 97 Room Air 01/26/18 11:08 92 Room Air 2.0 01/26/18 11:00 70 01/26/18 11:00 37.3 70 20 129/74 94 Nasal Cannula 2.0 General Appearance: WD/WN, no apparent distress Head: normocephalic, atraumatic Eyes: normal inspection ENT: hearing grossly normal Neck: supple Respiratory/Chest: lungs clear, normal breath sounds, no respiratory distress, no accessory muscle use, + pertinent finding (+chest tenderness at the L axillary region) Cardiovascular: regular rate, rhythm, no murmur Abdomen/GI: normal bowel sounds, non tender, + distended Back: no muscle spasm Extremities/Musculoskelatal: no calf tenderness, no pedal edema, normal range of motion, + pertinent finding (LUE fistula, L shoulder post-surgical scarring) Neurologic/Psych: no motor/sensory deficits, alert, normal mood/affect Skin: normal color, warm/dry, no rash Lymphatic: no adenopathy Diagnostics Laboratory Results Results Past 24 Hours Test 01/26/18 11:50 01/26/18 16:32 Range/Units White Blood Count 6.80 4.8-10.8 K/uL Red Blood Count 3.76 4.2-5.4 M/uL Hemoglobin 12.1 12.0-16.0 g/dL Hematocrit 38.4 37-47 % Mean Corpuscular Volume 102.1 80-100 fL Mean Corpuscular Hemoglobin 32.2 25-34 pg Mean Corpuscular Hemoglobin Concent 31.5 32-36 g/dl Platelet Count 113 130-400 K/uL Mean Platelet Volume 11.2 7.4-10.4 fL Neutrophils (%) (Auto) 79.8 % Lymphocytes (%) (Auto) 12.2 % Monocytes (%) (Auto) 5.6 % Eosinophils (%) (Auto) 1.8 % Basophils (%) (Auto) 0.3 % Neutrophils # (Auto) 5.43 1.4-6.5 K/uL Lymphocytes # (Auto) 0.83 1.2-3.4 K/uL Monocytes # (Auto) 0.38 0.11-0.59 K/uL Eosinophils # (Auto) 0.12 0-0.5 K/uL Basophils # (Auto) 0.02 0-0.2 K/uL RDW Standard Deviation 54.5 36.4-46.3 fL RDW Coefficient of Variation 14.9 11.5-14.5 % Immature Granulocyte % (Auto) 0.3 % Immature Granulocyte # (Auto) 0.02 0.00-0.02 K/uL Sodium Level 135 136-145 mmol/L Potassium Level 4.1 3.5-5.1 mmol/L Chloride Level 96 98-107 mmol/L Carbon Dioxide Level 29 21-32 mmol/L Anion Gap 10.0 3-11 mmol/L Blood Urea Nitrogen 43 7-18 mg/dl Creatinine 7.10 0.60-1.20 mg/dl Est Creatinine Clear Calc Drug Dose 6.8 ml/min Estimated GFR () 6.0 Estimated GFR (Non- 5.2 BUN/Creatinine Ratio 6.1 10-20 Random Glucose 192 70-99 mg/dl Calcium Level 9.0 8.5-10.1 mg/dl Total Bilirubin 0.5 0.2-1 mg/dl Direct Bilirubin 0.3 0-0.2 mg/dl Aspartate Amino Transf (AST/SGOT) 20 15-37 U/L Alanine Aminotransferase (ALT/SGPT) 24 12-78 U/L Alkaline Phosphatase 233 45-117 U/L Total Protein 7.2 6.4-8.2 gm/dl Albumin 3.3 3.4-5.0 gm/dl Lipase 86 73-393 U/L Bedside Glucose 144 70-90 mg/dl Diagnostic Radiology CHEST ONE VIEW PORTABLE CLINICAL HISTORY: severe r chest pain dyspnea COMPARISON STUDY: 01/25/2018 FINDINGS: Stable moderate cardiomegaly. Implantable cardiac pacemaker. Comment pulmonary vasculature. IMPRESSION: Congestive heart failure THORACIC SPINE WITHOUT CT DOSE: HISTORY: Pain mid t spine pain TECHNIQUE: Multiaxial CT images of the thoracic spine were performed and reformatted in the sagittal and coronal plane without the use of contrast. A dose lowering technique was utilized adhering to the principles of ALARA. COMPARISON: None. FINDINGS: No fractures. No subluxation. Paraspinal soft tissues are unremarkable. Moderate degenerative disc change throughout. No evidence for compression deformity. IMPRESSION: Degenerative disc changes throughout. No evidence for an acute bony abnormality. Osteopenia. (CHEST FOR PE) ANGIO WITH CT DOSE: 665.09 mGy.cm HISTORY: Chest pain dyspnea TECHNIQUE: Multiaxial CT images of the chest were performed following the intravenous administration of contrast to evaluate the pulmonary arteries. Maximal intensity projection images were also obtained. A dose lowering technique was utilized adhering to the principles of ALARA. COMPARISON STUDY: 09/23/2017 FINDINGS: There is a normal caliber thoracic aorta with no evidence for dissection. There is no evidence for pulmonary embolus. No pleural effusions. No pneumothorax. The liver and spleen are unremarkable. No mediastinal or hilar lymphadenopathy. The central airways are patent. Prominent pulmonary vasculature. Bibasilar interstitial and/or atelectatic change. Permanent bipolar cardiac pacemaker. IMPRESSION: 1. No evidence for pulmonary embolus. 2. Mild bibasilar interstitial and/or atelectatic change. 3. Mild congestive failure. EKG AV dual-paced rhythm Abnormal ECG Impression Assessment and Plan This is a 72 year old female with a PMH of ESRD on HD -; sinus node dysfunction s/p permanent pacemaker in situ; insulin dependent DM2; EVERTON with nocturnal bipap use; idiopathic cardiomyopathy and systolic CHF with EF ~ 40%; hx. of atrial fibrillation no longer on anticoagulation due to hemopericardium; pulmonary HTN, HLD - presents with L sided chest pain. Chest Wall Tenderness - L axillary/chest wall tenderness - CT chest performed, no PE, no other acute findings - will monitor in tele - trend cardiac enzymes - no need for an echo, last one was July 2017 - this is most likely musculoskeletal axillary pain; will try Dilaudid PRN - oral Percocet PRN for pain ESRD on HD - consulted nephrology - usual hemodialysis days are Sunday, , Sunday - abdominal distention noted due to missed dialysis session Sinus Node Dysfunction s/p Permanent Pacemaker Insulin Dependent DM2 - will check an Ha1c in AM - Lantus 5 units BID - sliding scale; monitor for hypoglycemic episodes EVERTON with nocturnal Bipap use Atrial Fibrillation - no anticoagulation secondary to hemopericardium - continue Amiodarone Idiopathic Cardiomyopathy Chronic Systolic CHF - last echo in July 2017 showing EF of ~ 40% - continue dialysis for fluid management DVT ppx - SCDs FULL, NO MECHANICAL VENT Advanced Directives Existing Living Will: Yes Existing Power of Agricultural Engineering Technologist: Yes Resuscitation Status VTE Prophylaxis Will order VTE Prophylaxis: Yes Reason for no VTE drug order: Contraindicated
[2018-01-26] MEDS ORDERED: CALCIUM ACETATE PO SCH (21:00)
[2018-01-26] MEDS: HYDROmorphone INJ 0.5 MG/0.5 ML SYR IV PRN (21:07)
[2018-01-26] MEDS: SERTRALINE HCL 100 MG TAB PO SCH (21:42)
[2018-01-26] MEDS: ATORVASTATIN 40 MG TAB PO SCH (21:42)
[2018-01-26] MEDS: GABAPENTIN 100 MG CAP PO SCH (21:42)
[2018-01-26] MEDS: PANTOprazole SOD 40 MG TAB PO SCH (21:42)
[2018-01-26] MEDS: INSULIN ASPART 100 UNITS/ML 3 ML PEN SC SCH (21:43)
[2018-01-26] MEDS: INSULIN GLARGINE SOLOSTAR 100 UNITS/ML 3 ML PEN SC SCH (21:44)
[2018-01-27] VITALS (22 sets, daily range): BP systolic 92–126; BP diastolic 51–78; PULSE 70–74; TEMP 36.4–37.3; O2SAT 90–100
[2018-01-27] MEDS: OXYCODONE/ACETAMINOPHEN 5-325 TAB PO PRN ×3 (00:05→16:53)
[2018-01-27 03:40] LABS: HEMATOCRIT 37.4 % (37-47); HEMOGLOBIN 12.1 g/dL (12.0-16.0); MEAN CELL VOLUME 102.2 fL (80-100); MEAN CORPUSCULAR HEMOGLOBIN 33.1 pg (25-34); MEAN CORPUSCULAR HGB CONC 32.4 g/dl (32-36); MEAN PLATELET VOLUME 11.3 fL (7.4-10.4); PLATELET COUNT 105 K/uL (130-400); RED CELL DISTRIBUTION WIDTH SD 55.9 fL (36.4-46.3); WHITE BLOOD COUNT 6.72 K/uL (4.8-10.8)
[2018-01-27 04:17] LABS: CALCIUM 8.5 mg/dl (8.5-10.1); CREATININE 5.55 mg/dl (0.60-1.20); POTASSIUM 3.7 mmol/L (3.5-5.1)
[2018-01-27] MEDS: HYDROmorphone INJ 0.5 MG/0.5 ML SYR IV PRN ×2 (07:22→11:32)
[2018-01-27] MEDS: CALCIUM ACETATE 667MG GELCAP PO SCH ×2 (07:25→16:48)
[2018-01-27] MEDS: ASPIRIN 81 MG ECTAB PO SCH (07:32)
[2018-01-27] MEDS: AMIODARONE 200 MG TAB PO SCH (07:32)
[2018-01-27] MEDS: GABAPENTIN 100 MG CAP PO SCH ×2 (07:32→21:21)
[2018-01-27] MEDS: MULTIVITAMIN TAB PO SCH (07:32)
[2018-01-27] MEDS: INSULIN ASPART 100 UNITS/ML 3 ML PEN SC SCH ×4 (08:13→21:24)
[2018-01-27] MEDS: INSULIN GLARGINE SOLOSTAR 100 UNITS/ML 3 ML PEN SC SCH ×2 (08:13→21:24)
[2018-01-27] MEDS ORDERED: CYCLOBENZAPRINE HCL 5 MG TAB PO SCH (09:00)
[2018-01-27] MEDS: METAXALONE 800 MG TAB PO SCH ×3 (09:23→21:22)
[2018-01-27] MEDS ORDERED: HEPARIN SOD (PORCINE) 1000 UNIT/ML 10 ML VIAL IV SCH ×2 (10:00→11:00)
--- NOTE | 2018-01-27 10:01 | Nephrology Consultation ---
Nephrology Consultation Date of Consultation: Jan 27, 2018. Attending Physician: Dr Liriano Requesting Physician: Dr Goodwin Reason for Consultation: esrd on TRSat HD History of Present Illness 72 year old female w/ ESRD on TRSat HD, IDDM, a fib w/o anticoagulation, ICMO EF 40% under observation for L sided chest pain for which she presented first to ER then again yesterday. Chest pain has been reproducible. CT angio negative for PE. Missed HD and I arranged a short tx last evening, w/ 1.5L fluid removed. She is still having severe spasmodic pains under her L breast/ axillary line/ axilla this am. Past Medical/Surgical History Medical Problems: (1) Altered mental status Status: Acute (2) Ankle sprain Status: Acute (3) Bronchitis Status: Acute (4) CHF (congestive heart failure) Status: Acute (5) Chronic back pain Status: Acute (6) AGUILERA (dyspnea on exertion) Status: Acute (7) Elevated troponin Status: Acute (8) Exertional chest pain Status: Acute (9) Fall Status: Acute (10) Falls Status: Acute (11) Heat exhaustion Status: Acute (12) Left sided chest pain Status: Acute (13) Leg pain, right Status: Acute (14) Low back pain potentially associated with radiculopathy Status: Acute (15) Musculoskeletal chest pain Status: Acute (16) Nausea Status: Acute (17) Orthostatic hypotension Status: Acute (18) Sciatica Status: Acute (19) Shortness of breath Status: Acute (20) SI (sacroiliac) joint dysfunction Status: Acute (21) Upper respiratory infection Status: Acute -HF EF 40% -a fib no longer anticoagulated d/t hemopericardium -pulmonary HTN -HL -DM on insulin -EVERTON on bipap hs Family History Diabetes mellitus FH: heart disease FATHER MOTHER Kidney disease Social History Smoking Status: Former Smoker Alcohol Use: none Drug Use: none Marital Status: Housing Status: lives alone Occupation Status: retired Allergies Coded Allergies: Iodinated Diagnostic Agents (Verified Allergy, Mild, "Contrast Media" -- unknown rxn, 01/25/18) Adhesives (Verified Allergy, Unknown, "Tape" -- unknown rxn, 01/25/18) Morphine (Unverified Allergy, Unknown, UNKNOWN, 01/25/18) Warfarin (Unverified Allergy, Unknown, HYPERSENSITIVITY/BLEEDING, 01/25/18) Tomato (Verified Adverse Reaction, Intermediate, GI SYMPTOMS, 01/25/18) Tomato products cause diarrhea. Medications Current Inpatient Medications Medications (Trade) Dose Ordered Sig/Tyesha Route Start Time Stop Time Status Last Admin Dose Admin Acetaminophen (Tylenol Tab) 650 mg Q4H PRN PO 01/26/18 15:00 02/25/18 14:59 Al Hydrox/Mg Hydrox/Simethicone (Maalox Max Susp) 15 ml Q4H PRN PO 01/26/18 15:00 02/25/18 14:59 Insulin Glargine (Lantus Solostar Pen) 5 units Q12 SC 01/26/18 21:00 02/25/18 20:59 01/27/18 08:13 5 UNITS Insulin Aspart (novoLOG ASPART) SLIDING SCALE If C... ACHS SC 01/26/18 21:00 02/25/18 20:59 01/27/18 08:13 4 UNITS Glucose (Glucose 40% Gel) 15-30 GRAMS 15 GRAMS... UD PRN PO 01/26/18 15:00 02/25/18 14:59 Glucose (Glucose Chew Tab) 4-8 Tablets 4 Tabl... UD PRN PO 01/26/18 15:00 02/25/18 14:59 Dextrose (Dextrose 50% 50ML Syringe) 25-50ML OF 50% DW IV FOR... UD PRN IV 01/26/18 15:00 02/25/18 14:59 Glucagon (Glucagon Inj) 1 mg UD PRN SQ 01/26/18 15:00 02/25/18 14:59 Amiodarone HCl (Cordarone Tab) 200 mg DAILY PO 01/27/18 09:00 02/26/18 08:59 01/27/18 07:32 200 MG Aspirin (Ecotrin Tab) 81 mg DAILY PO 01/27/18 09:00 02/26/18 08:59 01/27/18 07:32 81 MG Atorvastatin Calcium (Lipitor Tab) 40 mg QPM PO 01/26/18 21:00 02/25/18 20:59 01/26/18 21:42 40 MG Clonazepam (Klonopin Tab) 0.25 mg TuThSa@1600 PO 01/29/18 16:00 02/28/18 15:59 Clonazepam (Klonopin Tab) 0.25 mg HS PRN PO 01/26/18 15:00 02/25/18 14:59 Gabapentin (Neurontin Cap) 200 mg BID PO 01/26/18 21:00 02/25/18 20:59 01/27/18 07:32 200 MG Albuterol/ Ipratropium (Duoneb) 3 ml Q4H PRN INH 01/26/18 15:00 02/25/18 14:59 Levothyroxine Sodium (Synthroid Tab) 50 mcg TuThSa@1600 PO 01/29/18 16:00 02/28/18 15:59 Lorazepam (Ativan Tab) 0.5 mg TID PRN PO 01/26/18 15:00 02/25/18 14:59 Midodrine (Proamatine Tab) 10 mg TuThSa@1600 PO 01/29/18 16:00 02/28/18 15:59 Multivitamins (Multivitamin Tab) 1 tab QAM PO 01/27/18 09:00 02/26/18 08:59 01/27/18 07:32 1 TAB Nitroglycerin (Nitrostat Tab) 0.4 mg PRN UT 01/26/18 15:00 02/25/18 14:59 Oxycodone/ Acetaminophen (Percocet 5-325mg Tab) 1 tab Q6H PRN PO 01/26/18 15:00 02/09/18 14:59 01/27/18 07:35 1 TAB Ranitidine HCl (zANTac TAB) 150 mg BID PRN PO 01/26/18 15:00 02/25/18 14:59 Sertraline HCl (Zoloft Tab) 100 mg HS PO 01/26/18 21:00 02/25/18 20:59 01/26/18 21:42 100 MG Pantoprazole Sodium (Protonix Tab) 40 mg QPM PO 01/26/18 21:00 02/25/18 20:59 01/26/18 21:42 40 MG Hydromorphone HCl (Dilaudid Inj) 0.5 mg Q4 PRN IV 01/26/18 15:00 02/09/18 14:59 01/27/18 07:22 0.5 MG Miscellaneous (Iv Fluids Completed) 1 ea PRN PRN N/A 01/26/18 15:15 01/26/19 15:14 Calcium Acetate (Phoslo Cap) 667 mg BIDM PO 01/26/18 17:00 02/25/18 16:59 01/27/18 07:25 667 MG Cyclobenzaprine HCl (Flexeril Tab) 5 mg TID PO 01/27/18 09:00 02/26/18 08:59 UNV Home Meds and Scripts Medications Dose Route/Sig Max Daily Dose Days Date Category Dose Instructions Aspirin EC Low Dose (Aspirin) 81 Mg Ectab 81 Mg PO DAILY 01/26/18 Reported Midodrine Hcl 10 Mg Tab 10 Mg PO 3XWK 01/25/18 Reported TAKES TUES,THS,SAT Levothyroxine Sodium 50 Mcg Tab 50 Mcg PO UD 01/25/18 Reported with dialysis Humalog (Insulin Lispro (Human)) 100 Unit/Ml Inj 5 Units SQ TIDM 01/25/18 Reported Oxygen Gas 2 Liters NA HS PRN 11/03/17 Reported Duoneb (Ipratropium-Albuterol) 3 Ml Nebu 3 Ml INH Q4H PRN 11/03/17 Reported Percocet 5MG/325MG (Oxycodone/Acetaminophen) Tab 1 Tablet PO Q6H PRN 11/03/17 Reported PAIN Clonazepam 0.5 Mg Tab 0.25 Mg PO 3XWK 10/28/17 Reported IN AM TAKE TUES, THUR, AND SAT Proventil Hfa (Albuterol Sulfate) 108 Mcg/Act Aer 2 Puff INH Q6H PRN 09/23/17 Reported Flonase Allergy Relief (Fluticasone Propionate (Nasal)) 50 Mcg/Act Spr 2 Sprays NA DAILY 09/23/17 Reported Lantus (Insulin Glargine) 100 Unit/Ml Inj 10 Units SC HS 09/23/17 Reported Organ-I Nr (Guaifenesin) 200 Mg Tab 200 Mg PO Q8H PRN 10 11/11/16 Rx Cordarone (Amiodarone Hcl) 200 Mg Tab 200 Mg PO DAILY 05/23/16 Reported Zantac (Ranitidine HCl) 150 Mg Tab 150 Mg PO BID PRN 04/26/16 Reported Neurontin (Gabapentin) 100 Mg Cap 200 Mg PO BID 10/14/15 Reported Nexium (Esomeprazole Magnesium) 40 Mg Cap 40 Mg PO QPM 08/18/15 Reported Calcium Acetate (Calcium Acetate (Phosphate Bin) 667 Mg Tab 667 Mg PO QPM 08/18/15 Reported Lipitor (Atorvastatin) 40 Mg Tab 40 Mg PO QPM 08/18/15 Reported Klonopin (Clonazepam) 0.5 Mg Tab 0.25 Mg PO HS PRN 08/18/15 Reported Multivitamin (Multiple Vitamin) 1 Tab Tab 1 Tab PO QAM 01/26/15 Reported Tylenol Extra Strength (Acetaminophen) 500 Mg Tab 1,000-2,000 Mg PO Q4HPRN PRN 01/26/15 Reported Nitrostat (Nitroglycerin) 0.4 Mg Sub 0.4 Mg UT PRN 01/26/15 Reported Ativan (Lorazepam) 0.5 Mg Tab 0.5 Mg PO TID PRN 01/26/15 Reported Zoloft (Sertraline Hcl) 100 Mg Tab 100 Mg PO HS 01/26/15 Reported Review of Systems Constitutional: + fatigue, No fever, No chills, No weakness Eyes: No worsening of vision ENT: No hearing loss Respiratory: No cough, No shortness of breath Cardiac: + see HPI, + chest pain, No edema, No palpitations Abdomen: + constipation, No pain, No nausea, No vomiting, No diarrhea Musculoskeletal: + see HPI, + muscle pain, No joint pain Female : + problem reported (no change in chronic voiding habits) Neuro: + weakness, No memory loss Psych: No depression symptoms Heme: No abnormal bleeding/bruising Endo: + fatigue Skin: No rash Physical Exam Date Time Temp Pulse Resp B/P (MAP) Pulse Ox O2 Delivery O2 Flow Rate FiO2 01/27/18 07:33 36.6 70 18 126/78 (94) 90 01/27/18 04:02 Nasal Cannula 2.0 01/27/18 03:55 36.4 73 20 122/66 (84) 97 CPAP 2.0 01/27/18 02:06 72 93 2.0 01/27/18 01:35 36.4 72 111/69 (83) 01/27/18 00:45 70 123/67 01/27/18 00:30 70 111/65 01/27/18 00:15 71 108/58 01/27/18 00:02 Nasal Cannula 2.0 01/27/18 00:00 73 115/52 01/26/18 23:45 70 102/59 01/26/18 23:33 36.5 69 18 105/62 (76) 96 Nasal Cannula 2.0 01/26/18 23:30 70 108/64 01/26/18 23:15 72 105/62 01/26/18 23:00 72 126/68 01/26/18 22:49 69 133/75 01/26/18 22:35 36.5 70 118/70 (86) 01/26/18 20:00 Nasal Cannula 2.0 01/26/18 19:25 36.4 70 20 120/77 (91) 94 Nasal Cannula 2.0 01/26/18 16:10 36.5 70 14 136/82 (100) 98 Nasal Cannula 4.0 01/26/18 15:50 71 12 106/59 97 Nasal Cannula 2.0 01/26/18 15:08 97 Nasal Cannula 3.0 01/26/18 15:00 70 12 136/75 98 Room Air 2.0 01/26/18 14:32 70 18 133/75 97 Nasal Cannula 3.0 01/26/18 13:41 71 16 166/61 98 Room Air 01/26/18 13:07 70 01/26/18 12:47 70 14 123/63 96 Room Air 2.0 01/26/18 12:02 70 16 130/67 97 Room Air 01/26/18 11:08 92 Room Air 2.0 01/26/18 11:00 70 01/26/18 11:00 37.3 70 20 129/74 94 Nasal Cannula 2.0 General Appearance: WD/WN, + mild distress (w/ frequent spasms of pain; on 02NC which she uses at home prn), + obese Eyes: EOMI ENT: hearing grossly normal Neck: supple Respiratory/Chest: no respiratory distress, no accessory muscle use, + decreased breath sounds, + crackles Cardiovascular: regular rate, rhythm, + pertinent finding (trace BL edema) Abdomen: normal bowel sounds, non tender, soft, + pertinent finding (no arnold) Extremities: + pedal edema Skin: normal color, no jaundice, warm/dry, no rash Diagnostics Last 24 Hours Test 01/26/18 11:50 01/26/18 16:32 01/26/18 19:58 01/26/18 20:54 White Blood Count 6.80 K/uL Red Blood Count 3.76 M/uL Hemoglobin 12.1 g/dL Hematocrit 38.4 % Mean Corpuscular Volume 102.1 fL Mean Corpuscular Hemoglobin 32.2 pg Mean Corpuscular Hemoglobin Concent 31.5 g/dl Platelet Count 113 K/uL Mean Platelet Volume 11.2 fL Neutrophils (%) (Auto) 79.8 % Lymphocytes (%) (Auto) 12.2 % Monocytes (%) (Auto) 5.6 % Eosinophils (%) (Auto) 1.8 % Basophils (%) (Auto) 0.3 % Neutrophils # (Auto) 5.43 K/uL Lymphocytes # (Auto) 0.83 K/uL Monocytes # (Auto) 0.38 K/uL Eosinophils # (Auto) 0.12 K/uL Basophils # (Auto) 0.02 K/uL RDW Standard Deviation 54.5 fL RDW Coefficient of Variation 14.9 % Immature Granulocyte % (Auto) 0.3 % Immature Granulocyte # (Auto) 0.02 K/uL Sodium Level 135 mmol/L Potassium Level 4.1 mmol/L Chloride Level 96 mmol/L Carbon Dioxide Level 29 mmol/L Anion Gap 10.0 mmol/L Blood Urea Nitrogen 43 mg/dl Creatinine 7.10 mg/dl Est Creatinine Clear Calc Drug Dose 6.8 ml/min Estimated GFR () 6.0 Estimated GFR (Non- 5.2 BUN/Creatinine Ratio 6.1 Random Glucose 192 mg/dl Calcium Level 9.0 mg/dl Total Bilirubin 0.5 mg/dl Direct Bilirubin 0.3 mg/dl Aspartate Amino Transf (AST/SGOT) 20 U/L Alanine Aminotransferase (ALT/SGPT) 24 U/L Alkaline Phosphatase 233 U/L Total Protein 7.2 gm/dl Albumin 3.3 gm/dl Lipase 86 U/L Bedside Glucose 144 mg/dl 182 mg/dl Troponin I 0.018 ng/ml Test 01/27/18 03:28 01/27/18 06:53 White Blood Count 6.72 K/uL Red Blood Count 3.66 M/uL Hemoglobin 12.1 g/dL Hematocrit 37.4 % Mean Corpuscular Volume 102.2 fL Mean Corpuscular Hemoglobin 33.1 pg Mean Corpuscular Hemoglobin Concent 32.4 g/dl RDW Standard Deviation 55.9 fL RDW Coefficient of Variation 15.0 % Platelet Count 105 K/uL Mean Platelet Volume 11.3 fL Sodium Level 134 mmol/L Potassium Level 3.7 mmol/L Chloride Level 94 mmol/L Carbon Dioxide Level 30 mmol/L Anion Gap 10.0 mmol/L Blood Urea Nitrogen 28 mg/dl Creatinine 5.55 mg/dl Est Creatinine Clear Calc Drug Dose 8.8 ml/min Estimated GFR () 8.1 Estimated GFR (Non- 7.0 BUN/Creatinine Ratio 5.3 Random Glucose 161 mg/dl Calcium Level 8.5 mg/dl Troponin I 0.018 ng/ml Bedside Glucose 131 mg/dl Diagnostic Radiology: CT chest PE protocol no PE; mild congestive failure CT T spine no acute frx CXR vasc congestion Assessment & Plan 72 y/o F w/ ESRD on TRSat HD, ICMO EF 40%, IDDM, A fib not anticoagulated, plm HTN, EVERT[place] on bipap under observation after presenting w/ ongoing reproducible L sided chest pain. ESRD -had 2 hr tx yesterday -chemistries, blood pressure/HR, hgb, plts all acceptable today -next HD today 2 hrs, then plan routine tx on 01/29 or as clinical needs dictate L chest pain -per primary service; will need adequate analgesia to tolerate hd; this was achieved yesterday Appreciate consult; will follow with you. care coordinated w/ dr liriano
[2018-01-27] MEDS: LORAZEPAM 0.5 MG TAB PO PRN (11:32)
[2018-01-27] MEDS ORDERED: PERFLUTREN LIPID MICROSPHERE (DEFINITY) IV ONE (11:32)
--- NOTE | 2018-01-27 12:37 | ECHOCARDIOGRAM REPORT ---
*NOTICE TO RECEIVING [employer] This information is strictly Confidential and protected under [place] law. [place] law prohibits you from making any further disclosure of this information unless further disclosure is expressly permitted by the written consent of the person to whom it pertains or is authorized by law. A general authorization for the release of medical or other information is not sufficient for this purpose. Hospital accepts no responsibility if the information is made available to any other person, INCLUDING THE PATIENT. Interpretation Summary * Name: JUDY CLAY Study Date: 01/27/2018 10:55 AM BP: 125/73 mmHg * Patient Location: C.2T\S\E216\S\1 HR: 70 * : 1945 (M/d/yyy) Gender: Female Height: 60 in * Age: 72 yrs Ethnicity: [place] Weight: 194 lb * Ordering Physician: Carroll Liriano * Referring Physician: Self, Referred * Performed By: Alvin Swift RDCS * * Reason For Study: Chest pain, Hx of hemopericardium * BSA: 1.8 m2 * -- Conclusions -- * The left ventricle is normal in size. * There is moderate concentric left ventricular hypertrophy. * Left ventricular systolic function is normal. * Flattened septum is consistent with RV pressure overload. * There is moderate septal hypokinesis. * Ejection Fraction = 45-50%. * The right ventricle is mild to moderately dilated. * The left atrium is moderately dilated. * The right atrium is severely dilated. * There is mild to moderate mitral regurgitation. * There is severe tricuspid regurgitation. * Severe pulmonary hypertension is present. * PASP of >80 mmHg Procedure Details * A complete two-dimensional transthoracic echocardiogram was performed (2D, M-mode, Doppler and color flow Doppler). * The study was technically difficult, but visualization was adequate with the administration of Definity ultrasound contrast. * A contrast injection of Definity was performed to improve assessment of LV function. * Contrast was injected into an intravenous site in the right arm. * One vial of Definity ultrasound contrast was diluted in normal saline to a total volume of 10 ml. A total of '2' ml of solution was administered during imaging. * Lot # [id number] of Definity utilized for procedure. * Expiration date 1APR19. * The attending nurse who injected the contrast agent was ESTEFANY Foreman. Left Ventricle * The left ventricle is normal in size. * There is moderate concentric left ventricular hypertrophy. * Left ventricular systolic function is normal. * Ejection Fraction = 45-50%. * Flattened septum is consistent with RV pressure overload. * There is moderate septal hypokinesis. Right Ventricle * The right ventricle is mild to moderately dilated. Atria * The left atrium is moderately dilated. * The right atrium is severely dilated. * No ASD detected; PFO is not assessed. Mitral Valve * The mitral valve anatomy is normal. * There is no mitral valve stenosis. * There is mild to moderate mitral regurgitation. Tricuspid Valve * The tricuspid valve is not well visualized, but is grossly normal. * There is no tricuspid stenosis. * There is severe tricuspid regurgitation. * Severe pulmonary hypertension is present. PASP of >80 mmHg Aortic Valve * The aortic valve is trileaflet. * Aortic valve sclerosis mild, without significant aortic valvular stenosis. * No hemodynamically significant valvular aortic stenosis. * No aortic regurgitation is present. Pulmonic Valve * The pulmonic valve is not well visualized. Great Vessels * The aortic root is normal size. Pericardium/Pleural * There is no pericardial effusion. Great Vessels * Dilated inferior vena cava with reduced collapsability with sniff indicates an elevated right atrial pressure of 15 mmHg Left Ventricular Diastolic Function * Diastolic dysfunction, Grade III (restrictive pattern), consistent with markedly increased left atrial pressure. MMode 2D Measurements and Calculations IVSd 1.2 cm IVSs 1.6 cm LVIDd 4.5 cm LVIDs 3.4 cm LVPWd 1.3 cm LVPWs 1.5 cm IVS/LVPW 0.94 FS 25.2 % EDV(Teich) 94.4 ml ESV(Teich) 47.2 ml EF(Teich) 50.0 % EDV(cubed) 93.6 ml ESV(cubed) 39.1 ml EF(cubed) 58.2 % % IVS thick 27.0 % % LVPW thick 16.6 % LV mass(C)d 221.9 grams LV mass(C)dI 120.4 grams/m\S\2 LV mass(C)s 198.8 grams LV mass(C)sI 107.9 grams/m\S\2 SV(Teich) 47.1 ml SI(Teich) 25.6 ml/m\S\2 SV(cubed) 54.5 ml SI(cubed) 29.6 ml/m\S\2 EPSS 0.70 cm Ao root diam 2.8 cm Ao root area 6.2 cm\S\2 ACS 1.6 cm LA dimension 4.8 cm asc Aorta Diam 3.3 cm LA/Ao 1.7 LVOT diam 2.0 cm LVOT area 3.1 cm\S\2 LVAd ap4 25.0 cm\S\2 LVLd ap4 7.1 cm EDV(MOD-sp4) 72.2 ml EDV(sp4-el) 75.2 ml LVAs ap4 18.2 cm\S\2 LVLs ap4 6.7 cm ESV(MOD-sp4) 39.9 ml ESV(sp4-el) 42.0 ml EF(MOD-sp4) 44.8 % EF(sp4-el) 44.2 % LVAd ap2 27.4 cm\S\2 LVLd ap2 6.9 cm EDV(MOD-sp2) 89.9 ml EDV(sp2-el) 92.3 ml LVAs ap2 19.6 cm\S\2 LVLs ap2 6.6 cm ESV(MOD-sp2) 48.0 ml ESV(sp2-el) 48.9 ml EF(MOD-sp2) 46.6 % EF(sp2-el) 47.0 % LVLd %diff -2.48 % EDV(MOD-bp) 81.5 ml LVLs %diff -1.02 % ESV(MOD-bp) 43.9 ml EF(MOD-bp) 46.1 % SV(MOD-sp4) 32.3 ml SI(MOD-sp4) 17.5 ml/m\S\2 SV(MOD-sp2) 41.9 ml SI(MOD-sp2) 22.7 ml/m\S\2 SV(MOD-bp) 37.6 ml SI(MOD-bp) 20.4 ml/m\S\2 SV(sp4-el) 33.2 ml SI(sp4-el) 18.0 ml/m\S\2 SV(sp2-el) 43.3 ml SI(sp2-el) 23.5 ml/m\S\2 Doppler Measurements and Calculations MV E max candice 112.3 cm/sec MV dec time 0.16 sec Ao V2 max 168.5 cm/sec Ao max PG 11.4 mmHg Ao max PG (full) 8.0 mmHg SHIRA(V,A) 1.7 cm\S\2 SHIRA(V,D) 1.7 cm\S\2 LV V1 max PG 3.4 mmHg LV V1 max 91.6 cm/sec PA V2 max 114.5 cm/sec PA max PG 5.2 mmHg PA acc slope 909.6 cm/sec\S\2 PA acc time 0.10 sec TR max candice 411.8 cm/sec PA pr(Accel) 35.3 mmHg
--- NOTE | 2018-01-27 15:14 | Progress Note ---
Internal Med Progress Note Date of Service: Jan 27, 2018. Provider Documentation: SUBJECTIVE: having severe pain left side of chest below breast and radiating to back requiring significant pain meds no sob afebrile no rash no cough hemodynamics stable OBJECTIVE: Vital Signs-as noted below Exam: General-alert and oriented. ENT-Normal hearing Neck-no neck masses Lungs-cta b/l no wheezing no crackles present Heart-S1 and S2 heard regular rate and rhythm no murmurs tenderness below left breast-no erythema or swelling Abdomen-Soft bowel sounds present non tender no distension Extremities-no edema no erythema Neuro-alert and awake moves extremities Lab data as noted below. ASSESSMENT & PLAN: This is a 72 year old female with a PMH of ESRD on HD ; sinus node dysfunction s/p permanent pacemaker in situ; insulin dependent DM2; EVERTON with nocturnal bipap use; idiopathic cardiomyopathy and systolic CHF with EF ~ 40%; hx. of atrial fibrillation no longer on anticoagulation due to hemopericardium; pulmonary HTN, HLD - presents with L sided chest pain. Chest Wall Tenderness L axillary/chest wall tenderness CTA chest unremarkable echo no new findings except severe pul htn serial ce negative no rash or swelling seen on iv Dilaudid prn Lidoderm patch Skelaxin consult pain management in am ESRD on HD consulted nephrology hemodialysis days are Sunday, , Sunday dialysis as per nephrology Sinus Node Dysfunction s/p Permanent Pacemaker Insulin Dependent DM2 Lantus 5 units BID ISS will monitor. EVERTON with nocturnal Bipap use Atrial Fibrillation Not on anticoagulation secondary to hemopericardium on Amiodarone Idiopathic Cardiomyopathy Chronic Systolic CHF EF of ~ 40% On dialysis for fluid management. Chronic thrombocytopenia will f/u labs DVT ppx SCDs FULL, NO MECHANICAL VENT DISPOSITION to be determined Vital Signs: Date Time Temp Pulse Resp B/P (MAP) Pulse Ox O2 Delivery O2 Flow Rate FiO2 01/27/18 16:00 Nasal Cannula 2.0 01/27/18 15:27 36.4 70 18 123/74 (90) 97 Nasal Cannula 1.5 01/27/18 12:00 Nasal Cannula 2.0 01/27/18 11:04 36.6 71 18 125/73 (90) 95 01/27/18 08:00 Nasal Cannula 2.0 01/27/18 07:33 36.6 70 18 126/78 (94) 90 01/27/18 04:02 Nasal Cannula 2.0 01/27/18 03:55 36.4 73 20 122/66 (84) 97 CPAP 2.0 01/27/18 02:06 72 93 2.0 01/27/18 01:35 36.4 72 111/69 (83) 01/27/18 00:45 70 123/67 01/27/18 00:30 70 111/65 01/27/18 00:15 71 108/58 01/27/18 00:02 Nasal Cannula 2.0 01/27/18 00:00 73 115/52 01/26/18 23:45 70 102/59 01/26/18 23:33 36.5 69 18 105/62 (76) 96 Nasal Cannula 2.0 01/26/18 23:30 70 108/64 01/26/18 23:15 72 105/62 01/26/18 23:00 72 126/68 01/26/18 22:49 69 133/75 01/26/18 22:35 36.5 70 118/70 (86) 01/26/18 20:00 Nasal Cannula 2.0 01/26/18 19:25 36.4 70 20 120/77 (91) 94 Nasal Cannula 2.0 Lab Results: Results Past 24 Hours Test 01/26/18 19:58 01/26/18 20:54 01/27/18 03:28 01/27/18 06:53 Range/Units Bedside Glucose 182 131 70-90 mg/dl Troponin I 0.018 0.018 0-0.045 ng/ml White Blood Count 6.72 4.8-10.8 K/uL Red Blood Count 3.66 4.2-5.4 M/uL Hemoglobin 12.1 12.0-16.0 g/dL Hematocrit 37.4 37-47 % Mean Corpuscular Volume 102.2 80-100 fL Mean Corpuscular Hemoglobin 33.1 25-34 pg Mean Corpuscular Hemoglobin Concent 32.4 32-36 g/dl RDW Standard Deviation 55.9 36.4-46.3 fL RDW Coefficient of Variation 15.0 11.5-14.5 % Platelet Count 105 130-400 K/uL Mean Platelet Volume 11.3 7.4-10.4 fL Sodium Level 134 136-145 mmol/L Potassium Level 3.7 3.5-5.1 mmol/L Chloride Level 94 98-107 mmol/L Carbon Dioxide Level 30 21-32 mmol/L Anion Gap 10.0 3-11 mmol/L Blood Urea Nitrogen 28 7-18 mg/dl Creatinine 5.55 0.60-1.20 mg/dl Est Creatinine Clear Calc Drug Dose 8.8 ml/min Estimated GFR () 8.1 Estimated GFR (Non- 7.0 BUN/Creatinine Ratio 5.3 10-20 Random Glucose 161 70-99 mg/dl Calcium Level 8.5 8.5-10.1 mg/dl Hepatitis B Surface Antigen NEG NEG Hepatitis B Surface Antibody NEG Test 01/27/18 09:40 01/27/18 11:26 01/27/18 15:07 01/27/18 16:06 Range/Units Troponin I 0.015 < 0.015 0-0.045 ng/ml Bedside Glucose 215 147 70-90 mg/dl Microbiology Results 01/27/18 MRSA DNA Surveillance Screen - Final, Complete Specimen Negative for MRSA by DNA Probe
[2018-01-27] MEDS: HYDROmorphone INJ 1 MG/ML SYR IV PRN (18:11)
[2018-01-27] MEDS: PANTOprazole SOD 40 MG TAB PO SCH (21:21)
[2018-01-27] MEDS: SERTRALINE HCL 100 MG TAB PO SCH (21:21)
[2018-01-27] MEDS: ATORVASTATIN 40 MG TAB PO SCH (21:22)
[2018-01-28] VITALS (7 sets, daily range): BP systolic 104–134; BP diastolic 57–78; PULSE 70–77; TEMP 36.4–36.9; O2SAT 91–98
[2018-01-28] MEDS: HYDROmorphone INJ 1 MG/ML SYR IV PRN ×3 (00:13→08:53)
[2018-01-28 07:32] LABS: HEMOGLOBIN A1C 7.2 % (4.5-5.6)
[2018-01-28] MEDS: CALCIUM ACETATE 667MG GELCAP PO SCH ×2 (07:36→16:43)
[2018-01-28 07:39] LABS: BASO % 0.1 %; BASO ABS # 0.01 K/uL (0-0.2); EOS ABS # 0.15 K/uL (0-0.5); HEMOGLOBIN 12.5 g/dL (12.0-16.0); IG# 0.02 K/uL (0.00-0.02); LYMPH ABS # 1.04 K/uL (1.2-3.4); MEAN CELL VOLUME 102.8 fL (80-100); MEAN CORPUSCULAR HEMOGLOBIN 32.1 pg (25-34); MEAN CORPUSCULAR HGB CONC 31.3 g/dl (32-36); MEAN PLATELET VOLUME 10.6 fL (7.4-10.4); MONO % 7.1 %; MONO ABS # 0.53 K/uL (0.11-0.59); NEUT % 76.5 %; PLATELET COUNT 106 K/uL (130-400); RED CELL DISTRIBUTION WIDTH CV 15.1 % (11.5-14.5); RED CELL DISTRIBUTION WIDTH SD 56.9 fL (36.4-46.3); WHITE BLOOD COUNT 7.45 K/uL (4.8-10.8)
[2018-01-28] MEDS: LORAZEPAM 0.5 MG TAB PO PRN (07:41)
[2018-01-28] MEDS: OXYCODONE/ACETAMINOPHEN 5-325 TAB PO PRN (07:41)
[2018-01-28] MEDS: INSULIN ASPART 100 UNITS/ML 3 ML PEN SC SCH ×4 (07:45→21:00)
[2018-01-28] MEDS: INSULIN GLARGINE SOLOSTAR 100 UNITS/ML 3 ML PEN SC SCH ×2 (07:46→21:33)
[2018-01-28 08:22] LABS: CALCIUM 8.9 mg/dl (8.5-10.1); CREATININE 5.62 mg/dl (0.60-1.20)
[2018-01-28] MEDS: AMIODARONE 200 MG TAB PO SCH (08:53)
[2018-01-28] MEDS: ASPIRIN 81 MG ECTAB PO SCH (08:53)
[2018-01-28] MEDS: MULTIVITAMIN TAB PO SCH (08:54)
[2018-01-28] MEDS: GABAPENTIN 100 MG CAP PO SCH ×2 (08:54→21:31)
[2018-01-28] MEDS: METAXALONE 800 MG TAB PO SCH ×3 (08:54→21:29)
[2018-01-28] MEDS ORDERED: LIDODERM (LIDOCAINE) PATCH 5% TD SCH (09:00)
[2018-01-28] MEDS: LIDODERM (LIDOCAINE) PATCH 5% TD SCH (09:10)
--- NOTE | 2018-01-28 09:18 | Pain Management Consultation ---
Pain Management Consultation Date of Consultation Jan 28, 2018. Reason for Consultation 72 year old female on hemodialysis for ESRD with 3 days of left breast and rib pain. She reports that her pain is worse with inspiration and feels "that something is moving when I deep breathe or cough inside my chest." She denies any injury or etiology of her pain. She denies minimal coughing recently. She reports the pain feels that it stabbing and radiating from underneath her left breast around her chest wall to the back. She rates her pain between 3 and 10 out of 10. The patient states she fell in November of 2017, but denies any other recent falls. Pt denies headache, change in vision, fevers, rashes, shortness of breath, nausea, vomiting, diarrhea, bowel or bladder incontinence, motor weakness, footdrop. The patient states that she had shingles previously but that this does not feel like her prior shingles pain. She reports minimal benefit from oral Percocet and feels that IV hydromorphone is mildly efficacious in diminishing her pain. Pain Location 1 - Past Medical/Surgical History (1) Chest pain (2) SOB (shortness of breath) (3) Hyperkalemia (4) ESRD (end stage renal disease) (5) CHF (congestive heart failure) (6) Rib contusion (7) Cardiomegaly (8) End stage renal disease (9) Heart failure (10) DM2 (diabetes mellitus, type 2) (11) Diabetic neuropathy (12) Healed or old pulmonary embolism (13) Atrial fibrillation (14) TIA (transient ischemic attack) (15) GERD (gastroesophageal reflux disease) (16) HLD (hyperlipidemia) (17) Obesity hypoventilation syndrome (18) EVERTON (obstructive sleep apnea) (19) HTN (hypertension) (20) AC (generalized anxiety disorder) (21) Pulmonary HTN (22) Melanoma (23) Pacemaker (24) H/O total hysterectomy (25) S/P cholecystectomy (26) S/P IVC filter Family History Diabetes mellitus FH: heart disease FATHER MOTHER Kidney disease Noncontributory Social / Work History Smokeless Tobacco Use: No Drug Use: none Marital Status: Housing Status: lives alone Occupation: retired Allergies Coded Allergies: Iodinated Diagnostic Agents (Verified Allergy, Mild, "Contrast Media" -- unknown rxn, 01/25/18) Adhesives (Verified Allergy, Unknown, "Tape" -- unknown rxn, 01/25/18) Morphine (Unverified Allergy, Unknown, UNKNOWN, 01/25/18) Warfarin (Unverified Allergy, Unknown, HYPERSENSITIVITY/BLEEDING, 01/25/18) Tomato (Verified Adverse Reaction, Intermediate, GI SYMPTOMS, 01/25/18) Tomato products cause diarrhea. Medications Current Inpatient Medications Medications (Trade) Dose Ordered Sig/Tyesha Route Start Time Stop Time Status Last Admin Dose Admin Acetaminophen (Tylenol Tab) 650 mg Q4H PRN PO 01/26/18 15:00 02/25/18 14:59 Al Hydrox/Mg Hydrox/Simethicone (Maalox Max Susp) 15 ml Q4H PRN PO 01/26/18 15:00 02/25/18 14:59 Insulin Glargine (Lantus Solostar Pen) 5 units Q12 SC 01/26/18 21:00 02/25/18 20:59 01/28/18 07:46 5 UNITS Insulin Aspart (novoLOG ASPART) SLIDING SCALE If C... ACHS SC 01/26/18 21:00 02/25/18 20:59 01/28/18 07:45 4 UNITS Glucose (Glucose 40% Gel) 15-30 GRAMS 15 GRAMS... UD PRN PO 01/26/18 15:00 02/25/18 14:59 Glucose (Glucose Chew Tab) 4-8 Tablets 4 Tabl... UD PRN PO 01/26/18 15:00 02/25/18 14:59 Dextrose (Dextrose 50% 50ML Syringe) 25-50ML OF 50% DW IV FOR... UD PRN IV 01/26/18 15:00 02/25/18 14:59 Glucagon (Glucagon Inj) 1 mg UD PRN SQ 01/26/18 15:00 02/25/18 14:59 Amiodarone HCl (Cordarone Tab) 200 mg DAILY PO 01/27/18 09:00 02/26/18 08:59 01/28/18 08:53 200 MG Aspirin (Ecotrin Tab) 81 mg DAILY PO 01/27/18 09:00 02/26/18 08:59 01/28/18 08:53 81 MG Atorvastatin Calcium (Lipitor Tab) 40 mg QPM PO 01/26/18 21:00 02/25/18 20:59 01/27/18 21:22 40 MG Clonazepam (Klonopin Tab) 0.25 mg TuThSa@1600 PO 01/29/18 16:00 02/28/18 15:59 Clonazepam (Klonopin Tab) 0.25 mg HS PRN PO 01/26/18 15:00 02/25/18 14:59 Gabapentin (Neurontin Cap) 200 mg BID PO 01/26/18 21:00 02/25/18 20:59 01/28/18 08:54 200 MG Albuterol/ Ipratropium (Duoneb) 3 ml Q4H PRN INH 01/26/18 15:00 02/25/18 14:59 Levothyroxine Sodium (Synthroid Tab) 50 mcg TuThSa@1600 PO 01/29/18 16:00 02/28/18 15:59 Lorazepam (Ativan Tab) 0.5 mg TID PRN PO 01/26/18 15:00 02/25/18 14:59 01/28/18 07:41 0.5 MG Midodrine (Proamatine Tab) 10 mg TuThSa@1600 PO 01/29/18 16:00 02/28/18 15:59 Multivitamins (Multivitamin Tab) 1 tab QAM PO 01/27/18 09:00 02/26/18 08:59 01/28/18 08:54 1 TAB Nitroglycerin (Nitrostat Tab) 0.4 mg PRN UT 01/26/18 15:00 02/25/18 14:59 Ranitidine HCl (zANTac TAB) 150 mg BID PRN PO 01/26/18 15:00 02/25/18 14:59 Sertraline HCl (Zoloft Tab) 100 mg HS PO 01/26/18 21:00 02/25/18 20:59 01/27/18 21:21 100 MG Pantoprazole Sodium (Protonix Tab) 40 mg QPM PO 01/26/18 21:00 02/25/18 20:59 01/27/18 21:21 40 MG Miscellaneous (Iv Fluids Completed) 1 ea PRN PRN N/A 01/26/18 15:15 01/26/19 15:14 Calcium Acetate (Phoslo Cap) 667 mg BIDM PO 01/26/18 17:00 02/25/18 16:59 01/28/18 07:36 667 MG Metaxalone (Skelaxin Tab) 400 mg TID PO 01/27/18 09:00 02/26/18 08:59 01/28/18 08:54 400 MG Hydromorphone HCl (Dilaudid Inj) 1 mg Q4 PRN IV 01/27/18 12:45 02/09/18 14:59 01/28/18 08:53 1 MG Miscellaneous (Remove Lidoderm Patch) 1 ea DAILY@21 N/A 01/27/18 21:00 02/26/18 20:59 01/27/18 21:24 1 EA Lidocaine (Lidoderm Patch 5%) 2 patch QAM TD 01/28/18 09:00 02/27/18 08:59 Hydromorphone HCl (Dilaudid Tab) 2 mg Q3H PRN PO 01/28/18 08:45 02/11/18 08:44 Review of Systems Constitutional: Negative for fever, chills, sweats Eyes: Negative for eye pain, photophobia, drainage Ear, nose, mouth, throat: Negative for ear pain, nasal congestion, mouth lesions , change in voice Respiratory: Negative for wheezing, sputum production Cardiovascular: Negative for palpitations, calf pain, positive for left-sided chest pain Gastrointestinal: Negative for abdominal pain, belching, bloating Genitourinary: Negative for dysuria, urinary incontinence, urinary urgency Musculoskeletal: Negative for deformities Integumentary: Negative for nail changes, skin yellowing, pruritus Neurological: Negative for abnormal speech, seizure type activity Physical Exam Height & Weight: Height 5 feet, 0.00 inches. Weight 88.900 (Kilograms) 195 (Pounds) Last Vital Signs Documentation Date Time Temp Pulse Resp B/P (MAP) Pulse Ox O2 Delivery O2 Flow Rate FiO2 01/28/18 07:38 36.7 77 20 134/77 (96) 91 Room Air 01/28/18 04:00 2.0 Exam: Constitutional: Well-developed, well-nourished, obese Psych: Awake, alert, and oriented 3 with normal affect and mood. Recent memory appears grossly intact Eyes: Pupils are equally round and reactive to light with normal size pupils, eyelids appear normal Ear, nose, mouth, and throat: Moist nasal and oral membranes, lips and tongues appear normal, no external ear abnormalities are noted Neck: The trachea is midline without deviation and no thyromegaly is noted Respiratory: Normal respiratory effort without distress, no audible wheezes or rhonchi Chest: She is exquisitely tender under her left breast worse with inspiration. Patient is crying at points on the examination underneath her left breast. There is no visible rash ulcerations or skin breakdown. She does have pain with chest AP compression which reproduces her pain. GI/abdomen: Non-tender without guarding, no masses noted Musculoskeletal: Head is normocephalic and atraumatic, gait was not observed Cervical: Lordotic curve: Normal Range of motion is normal with extension, flexion, side- bending, rotation Strength: Strength is equal bilaterally with grossly 5 out of 5 strength in all planes Sensation of upper extremities: Intact bilaterally Thoracic: Kyphotic curve: Normal Range of motion is normal with extension, flexion, side- bending, rotation Tenderness: Nontender over the axial midline Facet provocation: Negative bilaterally Scoliosis present: None Step-off injuries: None Myofascial spasm: No appreciable spasm. No discrete trigger points noted Lumbar: Lordotic curve: Slightly decreased Range of motion is normal with extension, flexion, side- bending, rotation Tenderness: Nontender over the axial midline Facet provocation: Negative bilaterally Straight leg raise: Negative bilaterally Step-off injuries: None Strength: Strength is equal bilaterally with grossly 5 out of 5 strength in all planes Skin: No rashes, lesions, ulcers, and duration are noted Neuro: No nystagmus noted, the tongue is midline, the patient is able to rotate their head bilaterally : Deferred Laboratory Laboratory Results (Last CBC): 01/28/18 07:26 Red Blood Count 3.89 L, Mean Corpuscular Volume 102.8 H, Mean Corpuscular Hemoglobin 32.1, Mean Corpuscular Hemoglobin Concent 31.3 L, Mean Platelet Volume 10.6 H, Neutrophils (%) (Auto) 76.5, Lymphocytes (%) (Auto) 14.0, Monocytes (%) (Auto) 7.1, Eosinophils (%) (Auto) 2.0, Basophils (%) (Auto) 0.1, Neutrophils # (Auto) 5.70, Lymphocytes # (Auto) 1.04 L, Monocytes # (Auto) 0.53 , Eosinophils # (Auto) 0.15, Basophils # (Auto) 0.[address]: reports reviewed CT Findings Patient: JUDY CLAY Address1: [address] Rec: [id number] Address2: Acct ID: [id number] [facility] Zip: [place] [address] Date: 1945 Sex: F Room/Bed: Ref Phy: Subhash Mo M.D. SC: MICHAEL Att Phy: Report #: [id number] Guadalupe Phy: Subhash Mo M.D. Test: [id number] Admit Phy: Front Elevator Operator: MAKENZIE Interpreting Phy: Ben Carranza M.D. Diagnosis: BREAST PAIN Ordering Phy: William Victoria DO Service Date: 01/26/18 Admit Date: 01/26/18 MNE: [id number] CONF: DICTATED BY: Ben Carranza M.D.]] CC: William Victoria, Subhash Howe M.D. Endcc: [~ rep ct add3]] (CHEST FOR PE) ANGIO WITH CT DOSE: 665.09 mGy.cm HISTORY: Chest pain dyspnea TECHNIQUE: Multiaxial CT images of the chest were performed following the intravenous administration of contrast to evaluate the pulmonary arteries. Maximal intensity projection images were also obtained. A dose lowering technique was utilized adhering to the principles of ALARA. COMPARISON STUDY: 09/23/2017 FINDINGS: There is a normal caliber thoracic aorta with no evidence for dissection. There is no evidence for pulmonary embolus. No pleural effusions. No pneumothorax. The liver and spleen are unremarkable. No mediastinal or hilar lymphadenopathy. The central airways are patent. Prominent pulmonary vasculature. Bibasilar interstitial and/or atelectatic change. Permanent bipolar cardiac pacemaker. IMPRESSION: 1. No evidence for pulmonary embolus. 2. Mild bibasilar interstitial and/or atelectatic change. 3. Mild congestive failure. Radiology: reports reviewed Radiology Findings Patient: JUDY CLAY Address1: [address] Med Rec: [id number] Address2: Acct ID: [id number] [facility] Zip: [place] [address] Date: 1945 Sex: F Room/Bed: Ref Phy: Subhash Mo M.D. SC: MICHAEL Att Phy: Report #: [id number] Guadalupe Phy: Subhash Mo M.D. Test: [id number] Admit Phy: Front Elevator Operator: ARIAS Interpreting Phy: Ben Carranza M.D. Diagnosis: BREAST PAIN Ordering Phy: William Victoria DO Service Date: 01/26/18 Admit Date: 01/26/18 MNE: [id number] CONF: DICTATED BY: Ben Carranza M.D.]] CC: William Victoria, Subhash Howe M.D. Endcc: [~ rep ct add3]] CHEST ONE VIEW PORTABLE CLINICAL HISTORY: severe r chest pain dyspnea COMPARISON STUDY: 01/25/2018 FINDINGS: Stable moderate cardiomegaly. Implantable cardiac pacemaker. Comment pulmonary vasculature. IMPRESSION: Congestive heart failure Other Findings Patient: JUDY CLAY Karel Address1: [address] [place] [address] [address] [facility] Rec: [id number] Address2: Acct ID: [id number] [facility] Zip: [place] [address] Date: 1945 Sex: F Room/Bed: Ref Phy: Subhash Mo M.D. SC: MICHAEL Att Phy: Report #: [id number] Guadalupe Phy: Subhash Mo M.D. Test: TSWO Admit Phy: Front Elevator Operator: MAKENZIE Interpreting Phy: Ben Carranza M.D. Diagnosis: BREAST PAIN Ordering Phy: William Victoria DO Service Date: 01/26/18 Admit Date: 01/26/18 MNE: [id number] CONF: DICTATED BY: Ben Carranza M.D.]] CC: William Victoria, Subhash Howe M.D. Endcc: [~ rep ct add3]] THORACIC SPINE WITHOUT CT DOSE: HISTORY: Pain mid t spine pain TECHNIQUE: Multiaxial CT images of the thoracic spine were performed and reformatted in the sagittal and coronal plane without the use of contrast. A dose lowering technique was utilized adhering to the principles of ALARA. COMPARISON: None. FINDINGS: No fractures. No subluxation. Paraspinal soft tissues are unremarkable. Moderate degenerative disc change throughout. No evidence for compression deformity. IMPRESSION: Degenerative disc changes throughout. No evidence for an acute bony abnormality. Osteopenia. Past Records Previous Records: none available for review Assessment 1. Suspect left-sided rib fractures 2. Left-sided chest pain 3. End-stage renal disease on hemodialysis Recommendations 1. Will order left-sided rib series to rule out fracture 2. Discontinue oral Percocet and switch to oral hydromorphone 2 mg p.o. every 3 as needed pain 3. Continue IV hydromorphone as backup to oral hydromorphone 4. Continue Lidoderm patch and gabapentin 5. Treatment pathway is pending results of rib series x-ray. Thank you for this consultation.
[2018-01-28] MEDS: HYDROmorphone HCL 2 MG TAB PO PRN (09:55)
--- NOTE | 2018-01-28 10:52 | DIAGNOSTIC IMAGING REPORT ---
L RIBS UNILATERAL MIN 2 VIEWS CLINICAL HISTORY: left sided chest pain pain COMPARISON STUDY: None FINDINGS: Cortical fractures left sixth seventh and ninth ribs. Lungs appear clear. Minimal left basilar atelectasis. No evidence pneumothorax. IMPRESSION: Nondisplaced cortical fractures left sixth seventh and ninth ribs. No evidence pneumothorax. The above report was generated using voice recognition software. It may contain grammatical, syntax or spelling errors. Electronically signed by: Ben Carranza M.D. 01/28/2018 10:51 AM Dictated Date/Time: 01/28/2018 10:48 AM
[2018-01-28] MEDS ORDERED: HYDROmorphone HCL 0.5MG/ML 50 ML CASSETTE IV PRN (12:00)
[2018-01-28] MEDS ORDERED: NALOXONE HCL 0.4 MG/1 ML VIAL/CARP IV PRN (12:00)
[2018-01-28] MEDS: SODIUM CHLORIDE 0.9% 1000ML 1,000 ML IV SCH (13:03)
[2018-01-28] MEDS: FENTANYL 12 MCG/HR TDSY TD SCH (13:39)
--- NOTE | 2018-01-28 16:34 | Progress Note ---
Internal Med Progress Note Date of Service: Jan 28, 2018. Provider Documentation: SUBJECTIVE: still has severe pain on left chest on and off sob when in severe pain afebrile no nausea no cough hemodynamics stable OBJECTIVE: Vital Signs-as noted below Exam: General-alert and oriented. ENT-Normal hearing Neck-no neck masses Lungs-cta b/l no wheezing no crackles present Heart-S1 and S2 heard regular rate and rhythm no murmurs tenderness below left breast-no erythema or swelling Abdomen-Soft bowel sounds present non tender no distension Extremities-no edema no erythema Neuro-alert and awake moves extremities Lab data as noted below. ASSESSMENT & PLAN: This is a 72 year old female with a PMH of ESRD on HD -; sinus node dysfunction s/p permanent pacemaker in situ; insulin dependent DM2; EVERTON with nocturnal bipap use; idiopathic cardiomyopathy and systolic CHF with EF ~ 40%; hx. of atrial fibrillation no longer on anticoagulation due to hemopericardium; pulmonary HTN, HLD - presents with L sided chest pain. Chest Wall Tenderness L axillary/chest wall tenderness Rib fx on rib xray 6th, 7th and 9th ribs on left side CTA chest unremarkable echo no new findings except severe pul htn serial ce negative no rash or swelling seen on po and iv Dilaudid prn Lidoderm patch Skelaxin appreciate pain management inputs ESRD on HD consulted nephrology hemodialysis days are Sunday, , Sunday dialysis as per nephrology Sinus Node Dysfunction s/p Permanent Pacemaker Insulin Dependent DM2 Lantus 5 units BID ISS 217/154/166/240 will monitor. EVERTON with nocturnal Bipap use Atrial Fibrillation Not on anticoagulation secondary to hemopericardium on Amiodarone Idiopathic Cardiomyopathy Chronic Systolic CHF EF of ~ 40% On dialysis for fluid management. Chronic thrombocytopenia will f/u labs DVT ppx SCDs FULL, NO MECHANICAL VENT DISPOSITION to be determined pt/ot Vital Signs: Date Time Temp Pulse Resp B/P (MAP) Pulse Ox O2 Delivery O2 Flow Rate FiO2 01/28/18 15:35 36.7 70 20 111/70 (84) 98 Nasal Cannula 2.0 01/28/18 14:14 36.4 70 20 115/73 (87) 94 Nasal Cannula 2.0 01/28/18 12:00 Room Air 01/28/18 08:00 Room Air 01/28/18 07:38 36.7 77 20 134/77 (96) 91 Room Air 01/28/18 04:00 Nasal Cannula 2.0 01/28/18 03:48 36.9 72 18 116/74 (88) 98 Nasal Cannula 2.0 01/28/18 00:01 Nasal Cannula 2.0 01/27/18 23:16 36.6 70 124/75 (91) 97 Nasal Cannula 2.0 01/27/18 21:15 36.5 70 126/73 (90) 01/27/18 20:15 71 116/65 01/27/18 20:00 70 110/57 01/27/18 20:00 Nasal Cannula 2.0 01/27/18 19:45 70 107/60 01/27/18 19:30 70 97/56 01/27/18 19:23 36.6 70 16 102/55 (71) 97 Nasal Cannula 2.0 01/27/18 19:15 70 92/51 01/27/18 19:00 70 92/51 01/27/18 18:45 70 107/57 01/27/18 18:30 70 107/57 01/27/18 18:15 36.6 70 105/55 (72) Lab Results: Results Past 24 Hours Test 01/27/18 19:54 01/28/18 06:52 01/28/18 07:26 01/28/18 11:27 Range/Units Bedside Glucose 217 154 240 70-90 mg/dl White Blood Count 7.45 4.8-10.8 K/uL Red Blood Count 3.89 4.2-5.4 M/uL Hemoglobin 12.5 12.0-16.0 g/dL Hematocrit 40.0 37-47 % Mean Corpuscular Volume 102.8 80-100 fL Mean Corpuscular Hemoglobin 32.1 25-34 pg Mean Corpuscular Hemoglobin Concent 31.3 32-36 g/dl Platelet Count 106 130-400 K/uL Mean Platelet Volume 10.6 7.4-10.4 fL Neutrophils (%) (Auto) 76.5 % Lymphocytes (%) (Auto) 14.0 % Monocytes (%) (Auto) 7.1 % Eosinophils (%) (Auto) 2.0 % Basophils (%) (Auto) 0.1 % Neutrophils # (Auto) 5.70 1.4-6.5 K/uL Lymphocytes # (Auto) 1.04 1.2-3.4 K/uL Monocytes # (Auto) 0.53 0.11-0.59 K/uL Eosinophils # (Auto) 0.15 0-0.5 K/uL Basophils # (Auto) 0.01 0-0.2 K/uL RDW Standard Deviation 56.9 36.4-46.3 fL RDW Coefficient of Variation 15.1 11.5-14.5 % Immature Granulocyte % (Auto) 0.3 % Immature Granulocyte # (Auto) 0.02 0.00-0.02 K/uL Sodium Level 131 136-145 mmol/L Potassium Level 4.0 3.5-5.1 mmol/L Chloride Level 93 98-107 mmol/L Carbon Dioxide Level 31 21-32 mmol/L Anion Gap 7.0 3-11 mmol/L Blood Urea Nitrogen 28 7-18 mg/dl Creatinine 5.62 0.60-1.20 mg/dl Est Creatinine Clear Calc Drug Dose 8.7 ml/min Estimated GFR () 8.0 Estimated GFR (Non- 6.9 BUN/Creatinine Ratio 5.0 10-20 Random Glucose 166 70-99 mg/dl Calcium Level 8.9 8.5-10.1 mg/dl
[2018-01-28] MEDS: LOCK-OUT PCA TITRATION SCH (16:41)
[2018-01-28] MEDS: CHECK FENTANYL PATCH PLACEMENT SCH (16:41)
[2018-01-28] MEDS: INCREMENTAL PCA TITRATION SCH (16:43)
[2018-01-28] MEDS: DOCUSATE SODIUM 100 MG CAP PO SCH (21:28)
[2018-01-28] MEDS: ATORVASTATIN 40 MG TAB PO SCH (21:29)
[2018-01-28] MEDS: PANTOprazole SOD 40 MG TAB PO SCH (21:30)
[2018-01-28] MEDS: SERTRALINE HCL 100 MG TAB PO SCH (21:30)
[2018-01-29] VITALS (26 sets, daily range): BP systolic 88–143; BP diastolic 48–72; PULSE 69–72; TEMP 36.4–37.2; O2SAT 95–99
[2018-01-29] MEDS: CHECK FENTANYL PATCH PLACEMENT SCH ×4 (00:15→16:00)
[2018-01-29] MEDS: HYDROmorphone HCL 2 MG TAB PO PRN ×2 (02:40→21:29)
[2018-01-29] MEDS: INSULIN ASPART 100 UNITS/ML 3 ML PEN SC SCH ×4 (07:00→21:35)
[2018-01-29] MEDS: LOCK-OUT PCA TITRATION SCH ×4 (08:00→23:46)
[2018-01-29] MEDS ORDERED: HEPARIN SOD (PORCINE) 1000 UNIT/ML 10 ML VIAL IV SCH (08:00)
[2018-01-29] MEDS: INCREMENTAL PCA TITRATION SCH ×4 (08:00→23:46)
[2018-01-29] MEDS: DOCUSATE SODIUM 100 MG CAP PO SCH ×2 (08:23→21:31)
[2018-01-29] MEDS: CALCIUM ACETATE 667MG GELCAP PO SCH ×2 (08:24→22:05)
[2018-01-29] MEDS: METAXALONE 800 MG TAB PO SCH ×3 (08:25→21:24)
[2018-01-29] MEDS ORDERED: FENTANYL 25 MCG/HR TDSY TD SCH (09:00)
[2018-01-29] MEDS: HEPARIN SOD (PORCINE) 1000 UNIT/ML 10 ML VIAL IV SCH ×3 (09:00→11:12)
--- NOTE | 2018-01-29 09:42 | Pain Management Progress Note ---
Pain Management Progress Note Date of Service Jan 29, 2018. Subjective Mrs. Branch is a 72-year-old female with left lateral and anterior chest wall pain who has been found to have left sixth, seventh and ninth rib fractures. Patient was initiated on Dilaudid OUTPATIENT PHARMACY MANAGER and fentanyl 12 mcg yesterday. She has utilized 5 mg of Dilaudid OUTPATIENT PHARMACY MANAGER over the past 24 hours. She is reporting pain relief lasting for approximately 1-2 hours with use of the Dilaudid. She is experiencing some mild sedation from use of of the Dilaudid. Her pain is aggravated with any movement, coughing, sneezing or deep breathing activities. Pain remains in the left lateral anterior chest wall location without change. Patient has no further constitutional complaints. Pain Location 1 - Objective Vital Signs: Last Vital Signs Documentation Date Time Temp Pulse Resp B/P (MAP) Pulse Ox O2 Delivery O2 Flow Rate FiO2 01/29/18 08:07 37.0 72 22 134/72 (92) 95 Nasal Cannula 2.0 Physical Exam: General: Patient sitting quietly in exam room. Patient has apparent pain/ distress with movement and coughing or laughing activities. Chest wall: Patient tender to direct palpation over the left lateral and anterior chest wall predominantly in the inframammary location. Patient tender with lateral and AP compression. Neurologic: Cranial nerves grossly intact. Ambulatory function not witnessed. Laboratory Laboratory Findings 01/28/18 07:26 Red Blood Count 3.89 L, Mean Corpuscular Volume 102.8 H, Mean Corpuscular Hemoglobin 32.1, Mean Corpuscular Hemoglobin Concent 31.3 L, Mean Platelet Volume 10.6 H, Neutrophils (%) (Auto) 76.5, Lymphocytes (%) (Auto) 14.0, Monocytes (%) (Auto) 7.1, Eosinophils (%) (Auto) 2.0, Basophils (%) (Auto) 0.1, Neutrophils # (Auto) 5.70, Lymphocytes # (Auto) 1.04 L, Monocytes # (Auto) 0.53 , Eosinophils # (Auto) 0.15, Basophils # (Auto) 0.01 Imaging Radiology: reports reviewed Radiology Findings Patient: JUDY BRANCH Address1: [address] [facility] Rec: [id number] Address2: Acct ID: [id number] [facility] Zip: [place] [address] Date: 1945 Sex: F Room/Bed: [facility] Ref Phy: Subhash Mo M.D. SC: [id number] Att Phy: Carroll Liriano MD Report #: [id number] [place] Phy: Subhash Mo M.D. Test: RUNIL Admit Phy: Carol Goodwin DO Mixed Signal Design Engineer: WENDI Interpreting Phy: Ben Carranza M.D. Diagnosis: ESRD, RIB CONTUSION Ordering Phy: Xiomara Hackett D.O. Service Date: 01/28/18 Admit Date: 01/26/1803/24/18 MNE: [id number] CONF: DICTATED BY: Ben Carranza M.D.]] CC: Xiomara Hackett, Carroll Rossi MD Pilgram, Philip A., M.D. Endcc: [~ rep ct add3]] L RIBS UNILATERAL MIN 2 VIEWS CLINICAL HISTORY: left sided chest pain pain COMPARISON STUDY: None FINDINGS: Cortical fractures left sixth seventh and ninth ribs. Lungs appear clear. Minimal left basilar atelectasis. No evidence pneumothorax. IMPRESSION: Nondisplaced cortical fractures left sixth seventh and ninth ribs. No evidence pneumothorax. The above report was generated using voice recognition software. It may contain grammatical, syntax or spelling errors. Electronically signed by: Ben Carranza M.D. 01/28/2018 10:51 AM Dictated Date/Time: 01/28/2018 10:48 AM The status of this report is Signed. Draft = Not yet reviewed or approved by Radiologist. Signed = Reviewed and approved by Radiologist. Assessment 1. Left chest wall pain-nondisplaced fractures of left sixth, seventh and ninth ribs 2. End-stage renal disease on hemodialysis Recommendations 1. IV hydromorphone was further converted to fentanyl at today's visit. Will add fentanyl 25 mcg patch for total daily dose of fentanyl 37 mcg every 72 hours 2. Patient may continue with OUTPATIENT PHARMACY MANAGER hydromorphone for as needed breakthrough pain 3. Continue with Lidoderm patch and gabapentin without change 4. Will consider pursuing rib block in OR setting later in the week should she fail to respond to above. Will discuss risks versus benefit further tomorrow. 5. Will reevaluate in 24 hours
[2018-01-29] MEDS: RANITIDINE HCL 150 MG TAB PO PRN ×2 (13:59→21:30)
[2018-01-29] MEDS: AMIODARONE 200 MG TAB PO SCH (14:00)
[2018-01-29] MEDS: MULTIVITAMIN TAB PO SCH (14:00)
[2018-01-29] MEDS: GABAPENTIN 100 MG CAP PO SCH ×2 (14:00→21:29)
[2018-01-29] MEDS: ASPIRIN 81 MG ECTAB PO SCH (14:00)
[2018-01-29] MEDS: LIDODERM (LIDOCAINE) PATCH 5% TD SCH (14:01)
[2018-01-29] MEDS: INSULIN GLARGINE SOLOSTAR 100 UNITS/ML 3 ML PEN SC SCH ×2 (14:02→21:36)
--- NOTE | 2018-01-29 15:27 | Progress Note ---
Internal Med Progress Note Date of Service: Jan 29, 2018. Provider Documentation: SUBJECTIVE: patient now on Dilaudid infantry assaultman pump says whenever she moves she has pain and using pump afebrile has some cough no sob eating ok OBJECTIVE: Vital Signs-as noted below Exam: General-alert and oriented. ENT-Normal hearing Neck-no neck masses Lungs-cta b/l no wheezing no crackles present Heart-S1 and S2 heard regular rate and rhythm no murmurs tenderness below left breast-no erythema or swelling Abdomen-Soft bowel sounds present non tender no distension Extremities-no edema no erythema Neuro-alert and awake moves extremities Lab data as noted below. ASSESSMENT & PLAN: This is a 72 year old female with a PMH of ESRD on HD ; sinus node dysfunction s/p permanent pacemaker in situ; insulin dependent DM2; EVERTON with nocturnal bipap use; idiopathic cardiomyopathy and systolic CHF with EF ~ 40%; hx. of atrial fibrillation no longer on anticoagulation due to hemopericardium; pulmonary HTN, HLD - presents with L sided chest pain. Chest Wall Tenderness L axillary/chest wall tenderness Rib fx on rib xray 6th, 7th and 9th ribs on left side CTA chest unremarkable echo no new findings except severe pul htn serial ce negative no rash or swelling seen currently on Dilaudid infantry assaultman pump po Dilaudid prn Skelaxin gabapentin plan for rib block if no improvement appreciate pain management inputs ESRD on HD consulted nephrology hemodialysis days are Sunday, , Sunday dialysis as per nephrology Sinus Node Dysfunction s/p Permanent Pacemaker Insulin Dependent DM2 Lantus 5 units BID ISS 190/160/188/143 will monitor. EVERTON with nocturnal Bipap use Atrial Fibrillation Not on anticoagulation secondary to hemopericardium on Amiodarone stable Idiopathic Cardiomyopathy Chronic Systolic CHF EF of ~ 40% On dialysis for fluid management. Chronic thrombocytopenia will f/u labs DVT ppx SCDs FULL, NO MECHANICAL VENT DISPOSITION to be determined pt/ot Vital Signs: Date Time Temp Pulse Resp B/P (MAP) Pulse Ox O2 Delivery O2 Flow Rate FiO2 01/29/18 15:22 36.8 72 18 116/70 (85) 95 Nasal Cannula 2.0 01/29/18 12:57 72 19 103/56 (72) 96 Nasal Cannula 2.0 01/29/18 12:45 36.6 71 103/53 (70) 01/29/18 12:30 70 95/54 01/29/18 12:15 70 93/55 01/29/18 12:00 69 92/54 01/29/18 12:00 95 Nasal Cannula 2.0 01/29/18 11:45 69 88/50 01/29/18 11:30 69 98/55 01/29/18 11:15 69 96/62 01/29/18 11:00 69 106/48 01/29/18 10:45 69 89/52 01/29/18 10:30 69 103/56 01/29/18 10:15 72 98/58 01/29/18 10:00 69 102/55 01/29/18 09:45 69 114/58 01/29/18 09:30 72 113/62 01/29/18 09:15 69 122/70 01/29/18 08:57 36.6 70 143/67 (92) 01/29/18 08:07 37.0 72 22 134/72 (92) 95 Nasal Cannula 2.0 01/29/18 08:02 95 Nasal Cannula 2.0 01/29/18 04:00 Nasal Cannula 2.0 01/29/18 04:00 36.4 71 19 108/69 (82) 95 Nasal Cannula 2.0 01/29/18 00:00 Nasal Cannula 2.0 01/28/18 23:46 36.5 70 18 125/78 (94) 98 Nasal Cannula 2.0 01/28/18 20:00 Nasal Cannula 2.0 01/28/18 19:58 36.5 71 18 104/64 (77) 96 Nasal Cannula 2.0 01/28/18 16:00 Room Air 01/28/18 15:35 36.7 70 20 111/70 (84) 98 Nasal Cannula 2.0 Lab Results: Results Past 24 Hours Test 01/28/18 16:18 01/28/18 20:30 01/29/18 07:10 01/29/18 11:27 Range/Units Bedside Glucose 190 160 188 143 70-90 mg/dl
[2018-01-29] MEDS: LEVOTHYROXINE 50 MCG TAB PO SCH (17:24)
[2018-01-29] MEDS: MIDODRINE 10 MG TAB PO SCH (17:24)
[2018-01-29] MEDS: CLONAZEPAM 0.5 MG TAB PO SCH (17:29)
--- NOTE | 2018-01-29 20:42 | Nephrology Progress Note ---
Nephrology Progress Note Date of Service: Jan 29, 2018. Subjective pain mgt following; on parlor maid; still w/ intensive L sided rib pain Objective Date Time Temp Pulse Resp B/P (MAP) Pulse Ox O2 Delivery O2 Flow Rate FiO2 01/29/18 04:00 Nasal Cannula 2.0 01/29/18 04:00 36.4 71 19 108/69 (82) 95 Nasal Cannula 2.0 01/29/18 00:00 Nasal Cannula 2.0 01/28/18 23:46 36.5 70 18 125/78 (94) 98 Nasal Cannula 2.0 01/28/18 20:00 Nasal Cannula 2.0 01/28/18 19:58 36.5 71 18 104/64 (77) 96 Nasal Cannula 2.0 01/28/18 16:00 Room Air 01/28/18 15:35 36.7 70 20 111/70 (84) 98 Nasal Cannula 2.0 01/28/18 14:14 36.4 70 20 115/73 (87) 94 Nasal Cannula 2.0 01/28/18 12:00 Room Air 01/28/18 08:00 Room Air 01/28/18 07:38 36.7 77 20 134/77 (96) 91 Room Air Physical Exam: General Appearance: WD/WN, on 02NC which she uses at home prn, + obese Eyes: EOMI ENT: hearing grossly normal Neck: supple Respiratory/Chest: no respiratory distress, no accessory muscle use, + decreased breath sounds, holding pillow over her L chest Cardiovascular: regular rate, rhythm, + pertinent finding (trace BL edema) Abdomen: normal bowel sounds, non tender, soft, + pertinent finding (no arnold) Extremities: + pedal edema Skin: normal color, no jaundice, warm/dry, no rash Current Inpatient Medications Medications (Trade) Dose Ordered Sig/Tyesha Route Start Time Stop Time Status Last Admin Dose Admin Acetaminophen (Tylenol Tab) 650 mg Q4H PRN PO 01/26/18 15:00 02/25/18 14:59 Al Hydrox/Mg Hydrox/Simethicone (Maalox Max Susp) 15 ml Q4H PRN PO 01/26/18 15:00 02/25/18 14:59 Insulin Glargine (Lantus Solostar Pen) 5 units Q12 SC 01/26/18 21:00 02/25/18 20:59 3/26/18 21:33 5 UNITS Insulin Aspart (novoLOG ASPART) SLIDING SCALE If C... ACHS SC 01/26/18 21:00 02/25/18 20:59 01/28/18 17:19 3 UNITS Glucose (Glucose 40% Gel) 15-30 GRAMS 15 GRAMS... UD PRN PO 01/26/18 15:00 02/25/18 14:59 Glucose (Glucose Chew Tab) 4-8 Tablets 4 Tabl... UD PRN PO 01/26/18 15:00 02/25/18 14:59 Dextrose (Dextrose 50% 50ML Syringe) 25-50ML OF 50% DW IV FOR... UD PRN IV 01/26/18 15:00 02/25/18 14:59 Glucagon (Glucagon Inj) 1 mg UD PRN SQ 01/26/18 15:00 02/25/18 14:59 Amiodarone HCl (Cordarone Tab) 200 mg DAILY PO 01/27/18 09:00 02/26/18 08:59 01/28/18 08:53 200 MG Aspirin (Ecotrin Tab) 81 mg DAILY PO 01/27/18 09:00 02/26/18 08:59 01/28/18 08:53 81 MG Atorvastatin Calcium (Lipitor Tab) 40 mg QPM PO 01/26/18 21:00 02/25/18 20:59 01/28/18 21:29 40 MG Clonazepam (Klonopin Tab) 0.25 mg TuThSa@1600 PO 01/29/18 16:00 02/28/18 15:59 Clonazepam (Klonopin Tab) 0.25 mg HS PRN PO 01/26/18 15:00 02/25/18 14:59 Gabapentin (Neurontin Cap) 200 mg BID PO 01/26/18 21:00 02/25/18 20:59 01/28/18 21:31 200 MG Albuterol/ Ipratropium (Duoneb) 3 ml Q4H PRN INH 01/26/18 15:00 02/25/18 14:59 Levothyroxine Sodium (Synthroid Tab) 50 mcg TuThSa@1600 PO 01/29/18 16:00 02/28/18 15:59 Lorazepam (Ativan Tab) 0.5 mg TID PRN PO 01/26/18 15:00 02/25/18 14:59 01/28/18 07:41 0.5 MG Midodrine (Proamatine Tab) 10 mg TuThSa@1600 PO 01/29/18 16:00 02/28/18 15:59 Multivitamins (Multivitamin Tab) 1 tab QAM PO 01/27/18 09:00 02/26/18 08:59 01/28/18 08:54 1 TAB Nitroglycerin (Nitrostat Tab) 0.4 mg PRN UT 01/26/18 15:00 02/25/18 14:59 Ranitidine HCl (zANTac TAB) 150 mg BID PRN PO 01/26/18 15:00 02/25/18 14:59 Sertraline HCl (Zoloft Tab) 100 mg HS PO 01/26/18 21:00 02/25/18 20:59 01/28/18 21:30 100 MG Pantoprazole Sodium (Protonix Tab) 40 mg QPM PO 01/26/18 21:00 02/25/18 20:59 01/28/18 21:30 40 MG Miscellaneous (Iv Fluids Completed) 1 ea PRN PRN N/A 01/26/18 15:15 01/26/19 15:14 Calcium Acetate (Phoslo Cap) 667 mg BIDM PO 01/26/18 17:00 02/25/18 16:59 01/28/18 16:43 667 MG Metaxalone (Skelaxin Tab) 400 mg TID PO 01/27/18 09:00 02/26/18 08:59 01/28/18 21:29 400 MG Hydromorphone HCl (Dilaudid Inj) 1 mg Q4 PRN IV 01/27/18 12:45 02/09/18 14:59 01/28/18 08:53 1 MG Miscellaneous (Remove Lidoderm Patch) 1 ea DAILY@21 N/A 01/27/18 21:00 02/26/18 20:59 01/28/18 21:27 1 EA Lidocaine (Lidoderm Patch 5%) 2 patch QAM TD 01/28/18 09:00 02/27/18 08:59 01/28/18 09:10 2 PATCH Hydromorphone HCl (Dilaudid Tab) 2 mg Q3H PRN PO 01/28/18 08:45 02/11/18 08:44 01/29/18 02:40 2 MG Naloxone HCl (Narcan Inj) 0.1 mg Q5M PRN IV 01/28/18 12:00 02/27/18 11:59 Miscellaneous Information (Incremental DECONTAMINATION TECHNICIAN Titration) 1 ea QS N/A 01/28/18 16:00 02/27/18 15:59 01/28/18 16:43 1 EA Miscellaneous Information (Lock-Out DECONTAMINATION TECHNICIAN Titration) 1 ea QS N/A 01/28/18 16:00 02/11/18 15:59 Hydromorphone HCl (Dilaudid Conveyor Belt Operator) 25 mg PRN PRN IV 01/28/18 12:00 02/11/18 11:59 01/28/18 13:03 25 MG Docusate Sodium (coLACE CAP) 100 mg BID PO 01/28/18 21:00 02/27/18 20:59 01/28/18 21:28 100 MG Magnesium Citrate (Citrate Of Magnesia Soln) 50 ml DAILY PRN PO 01/31/18 09:00 03/02/18 08:59 Sodium Chloride 1,000 ml @ 15 mls/hr Q24H IV 01/28/18 11:54 02/27/18 11:53 01/28/18 13:03 15 MLS/HR Fentanyl (Duragesic Patch) 12 mcg Q72H TD 01/28/18 14:00 02/11/18 13:59 01/28/18 13:39 12 MCG Miscellaneous (Fentanyl Patch Remove & Waste) 1 ea Q3D N/A 01/31/18 14:00 03/02/18 13:59 Miscellaneous Information (Check Fentanyl Patch Placement) 1 ea QS N/A 01/28/18 16:00 02/27/18 15:59 01/29/18 00:15 1 EA Heparin Sodium (Porcine) (Heparin Iv Bolus) 1,000 unit TODAY@0800 IV 01/29/18 08:00 01/29/18 08:01 Heparin Sodium (Porcine) (Heparin Iv Bolus) 400 unit Q1H IV 01/29/18 08:00 01/29/18 10:01 Last 24 Hours Test 01/28/18 11:27 01/28/18 16:18 01/28/18 20:30 Bedside Glucose 240 mg/dl 190 mg/dl 160 mg/dl Assessment & Plan 72 y/o F w/ ESRD on TRSat HD, ICMO EF 40%, IDDM, A fib not anticoagulated, plm HTN, EVERTON on bipap under observation after presenting w/ ongoing reproducible L sided chest pain. ESRD -for routine HD today -chemistries, blood pressure/HR, hgb, plts all acceptable today -plan next routine tx after today on 01/31 or as clinical needs dictate L chest pain -per primary service; will need adequate analgesia to tolerate hd Appreciate consult; will follow with you. care coordinated w/ Dr. Liriano
[2018-01-29] MEDS: ATORVASTATIN 40 MG TAB PO SCH (21:24)
[2018-01-29] MEDS: PANTOprazole SOD 40 MG TAB PO SCH (21:32)
[2018-01-29] MEDS: SERTRALINE HCL 100 MG TAB PO SCH (21:32)
[2018-01-30] VITALS (7 sets, daily range): BP systolic 105–128; BP diastolic 67–77; PULSE 67–72; TEMP 36.6–37; O2SAT 92–98
[2018-01-30] MEDS: CHECK FENTANYL PATCH PLACEMENT SCH ×6 (00:09→15:40)
[2018-01-30] MEDS: HYDROmorphone HCL 2 MG TAB PO PRN ×2 (02:19→14:34)
[2018-01-30] MEDS: HYDROmorphone INJ 1 MG/ML SYR IV PRN (03:42)
[2018-01-30] MEDS: LOCK-OUT PCA TITRATION SCH ×2 (08:00→15:41)
[2018-01-30] MEDS: INCREMENTAL PCA TITRATION SCH ×2 (08:00→15:41)
[2018-01-30] MEDS: CALCIUM ACETATE 667MG GELCAP PO SCH ×2 (08:55→16:44)
[2018-01-30] MEDS: AMIODARONE 200 MG TAB PO SCH (08:55)
[2018-01-30] MEDS: RANITIDINE HCL 150 MG TAB PO PRN (08:55)
[2018-01-30] MEDS: GABAPENTIN 100 MG CAP PO SCH ×2 (08:56→21:00)
[2018-01-30] MEDS: METAXALONE 800 MG TAB PO SCH ×3 (08:56→21:00)
[2018-01-30] MEDS: MULTIVITAMIN TAB PO SCH (08:56)
[2018-01-30] MEDS: ASPIRIN 81 MG ECTAB PO SCH (08:56)
[2018-01-30] MEDS: LIDODERM (LIDOCAINE) PATCH 5% TD SCH (09:02)
[2018-01-30] MEDS: INSULIN ASPART 100 UNITS/ML 3 ML PEN SC SCH ×4 (09:04→21:00)
[2018-01-30] MEDS: INSULIN GLARGINE SOLOSTAR 100 UNITS/ML 3 ML PEN SC SCH ×2 (09:05→21:00)
--- NOTE | 2018-01-30 09:05 | Pain Management Progress Note ---
Pain Management Progress Note Date of Service Jan 30, 2018. Subjective Patient reporting 50% improvement in pain control over the past 24 hours with titration of fentanyl and continued use of INVENTORY ASSOCIATE hydromorphone. She is reporting less sharp pain over the past 24 hours. Her pain remains aggravated with movement, coughing, deep breathing or sneezing activities. Her pain remains in the left lateral and anterior chest wall in the inframammary location without change. Patient currently on fentanyl 37 mcg dose. Patient has utilized 4.8 mg of IV hydromorphone over the past 24 hours. She is denying any change in her mild sedation with titration of fentanyl. Patient has no further constitutional complaints at this time. Plan of care discussed with Dr. Xiomara Hackett. Pain Location 1 - Objective Vital Signs: Last Vital Signs Documentation Date Time Temp Pulse Resp B/P (MAP) Pulse Ox O2 Delivery O2 Flow Rate FiO2 01/30/18 07:34 36.6 70 20 128/77 (94) 95 Nasal Cannula 2.0 Physical Exam: General: Patient sitting quietly in exam room in no acute distress finishing her breakfast. Speech and thought process was appropriate. Mood and affect was appropriate. Cognition was intact. Moderate discomfort with movement appreciated. Chest: Patient tender to direct palpation of the lateral anterior chest wall and inframammary location extending from the posterior axillary line through the costosternal junction. Patient remains tender with AP and lateral compression. Neurologic: Cranial nerves grossly intact. Ambulatory function not witness. Laboratory Laboratory Findings 01/28/18 07:26 Red Blood Count 3.89 L, Mean Corpuscular Volume 102.8 H, Mean Corpuscular Hemoglobin 32.1, Mean Corpuscular Hemoglobin Concent 31.3 L, Mean Platelet Volume 10.6 H, Neutrophils (%) (Auto) 76.5, Lymphocytes (%) (Auto) 14.0, Monocytes (%) (Auto) 7.1, Eosinophils (%) (Auto) 2.0, Basophils (%) (Auto) 0.1, Neutrophils # (Auto) 5.70, Lymphocytes # (Auto) 1.04 L, Monocytes # (Auto) 0.53 , Eosinophils # (Auto) 0.15, Basophils # (Auto) 0.01 Assessment 1. Intractable left-sided chest wall pain with history of rib fracture 3 of the sixth, seventh and ninth ribs 2. End-stage renal disease on hemodialysis Recommendations 1. Maintain fentanyl 37 mcg every 72 hours due to apparent pain improvement over the past 24 hours 2. Maintain INVENTORY ASSOCIATE hydromorphone as needed for breakthrough pain consider transition to p.o. breakthrough pain medication tomorrow 3. Will continue to defer rib block due to risks/potential side effects given symptomatic improvement in pain control over the past 24 hours 4. Will plan for reevaluation in 24 hours
[2018-01-30] MEDS: SODIUM CHLORIDE 0.9% 1000ML 1,000 ML IV SCH ×2 (12:11→12:37)
[2018-01-30] MEDS: DOCUSATE SODIUM 100 MG CAP PO SCH ×2 (12:11→21:00)
[2018-01-30] MEDS ORDERED: HYDROmorphone INJ 2 MG/ML SYR/VIAL IV PRN (15:00)
--- NOTE | 2018-01-30 16:23 | Progress Note ---
Internal Med Progress Note Date of Service: Jan 30, 2018. Provider Documentation: SUBJECTIVE: Still on Dilaudid workforce advisor pump able to sit on the bed but still has significant pain on movement afebrile sob when having pain eating ok OBJECTIVE: Vital Signs-as noted below Exam: General-alert and oriented. ENT-Normal hearing Neck-no neck masses Lungs-cta b/l no wheezing no crackles present Heart-S1 and S2 heard regular rate and rhythm no murmurs tenderness below left breast-no erythema or swelling Abdomen-Soft bowel sounds present non tender no distension Extremities-no edema no erythema Neuro-alert and awake moves extremities Lab data as noted below. ASSESSMENT & PLAN: This is a 72 year old female with a PMH of ESRD on HD ; sinus node dysfunction s/p permanent pacemaker in situ; insulin dependent DM2; EVERTON with nocturnal bipap use; idiopathic cardiomyopathy and systolic CHF with EF ~ 40%; hx. of atrial fibrillation no longer on anticoagulation due to hemopericardium; pulmonary HTN, HLD - presents with L sided chest pain. Chest Wall Tenderness L axillary/chest wall tenderness Rib fx on rib xray 6th, 7th and 9th ribs on left side CTA chest unremarkable echo no new findings except severe pul htn serial ce negative no rash or swelling seen currently on Dilaudid workforce advisor pump, fentanyl patch po Dilaudid prn Skelaxin gabapentin rib block if no improvement in next couple of days as per pain management appreciate pain management inputs ESRD on HD consulted nephrology hemodialysis days are Sunday, , Sunday dialysis as per nephrology Sinus Node Dysfunction s/p Permanent Pacemaker Insulin Dependent DM2 Lantus 5 units BID ISS 165/138/235/176 will monitor. EVERTON with nocturnal Bipap use Atrial Fibrillation Not on anticoagulation secondary to hemopericardium on Amiodarone stable Idiopathic Cardiomyopathy Chronic Systolic CHF EF of ~ 40% On dialysis for fluid management. Chronic thrombocytopenia will f/u labs DVT ppx SCDs FULL, NO MECHANICAL VENT DISPOSITION to be determined pt/ot Vital Signs: Date Time Temp Pulse Resp B/P (MAP) Pulse Ox O2 Delivery O2 Flow Rate FiO2 01/30/18 16:04 36.8 70 18 120/76 (91) 92 Nasal Cannula 1.0 01/30/18 12:00 Nasal Cannula 1.0 01/30/18 11:08 36.9 67 20 123/73 (90) 92 Nasal Cannula 2.0 01/30/18 08:00 Nasal Cannula 1.0 01/30/18 07:34 36.6 70 20 128/77 (94) 95 Nasal Cannula 2.0 01/30/18 04:00 Nasal Cannula 1.0 01/30/18 03:35 36.9 70 16 121/71 (88) 96 Nasal Cannula 1.0 01/30/18 00:00 CPAP 2.0 01/29/18 23:25 37.2 70 18 110/68 (82) 96 BiPAP 2.0 01/29/18 22:00 70 99 2.0 01/29/18 20:00 Nasal Cannula 2.0 01/29/18 19:35 36.9 71 16 102/63 (76) 98 Nasal Cannula 2.0 Lab Results: Results Past 24 Hours Test 01/29/18 20:22 01/30/18 06:36 01/30/18 11:23 01/30/18 15:52 Range/Units Bedside Glucose 165 138 235 176 70-90 mg/dl
[2018-01-30] MEDS: PANTOprazole SOD 40 MG TAB PO SCH (21:00)
[2018-01-30] MEDS: ATORVASTATIN 40 MG TAB PO SCH (21:00)
[2018-01-30] MEDS: SERTRALINE HCL 100 MG TAB PO SCH (21:00)
[2018-01-31] VITALS (24 sets, daily range): BP systolic 95–131; BP diastolic 44–79; PULSE 69–73; TEMP 36.3–37; O2SAT 93–98
[2018-01-31] MEDS: INCREMENTAL PCA TITRATION SCH
[2018-01-31] MEDS: LOCK-OUT PCA TITRATION SCH
[2018-01-31] MEDS: CHECK FENTANYL PATCH PLACEMENT SCH ×8 (00:19→23:24)
[2018-01-31] MEDS ORDERED: HEPARIN SOD (PORCINE) 1000 UNIT/ML 10 ML VIAL IV ONE (08:00)
[2018-01-31 08:09] LABS: BASO % 0.1 %; BASO ABS # 0.01 K/uL (0-0.2); EOS % 1.3 %; HEMATOCRIT 36.9 % (37-47); HEMOGLOBIN 12.1 g/dL (12.0-16.0); IG# 0.02 K/uL (0.00-0.02); LYMPH % 7.5 %; LYMPH ABS # 0.56 K/uL (1.2-3.4); MEAN CELL VOLUME 100.3 fL (80-100); MEAN CORPUSCULAR HEMOGLOBIN 32.9 pg (25-34); MEAN CORPUSCULAR HGB CONC 32.8 g/dl (32-36); MEAN PLATELET VOLUME 10.7 fL (7.4-10.4); MONO % 6.7 %; NEUT % 84.1 %; NEUT ABS # 6.29 K/uL (1.4-6.5); PLATELET COUNT 114 K/uL (130-400); RED CELL DISTRIBUTION WIDTH CV 14.5 % (11.5-14.5); RED CELL DISTRIBUTION WIDTH SD 52.7 fL (36.4-46.3); WHITE BLOOD COUNT 7.48 K/uL (4.8-10.8)
[2018-01-31 08:54] LABS: CALCIUM 9.3 mg/dl (8.5-10.1); CREATININE 7.55 mg/dl (0.60-1.20); POTASSIUM 4.6 mmol/L (3.5-5.1)
[2018-01-31] MEDS ORDERED: MAGNESIUM CITRATE 296 ML/BTL PO PRN (09:00)
[2018-01-31] MEDS: INSULIN ASPART 100 UNITS/ML 3 ML PEN SC SCH ×4 (09:10→22:01)
[2018-01-31] MEDS: INSULIN GLARGINE SOLOSTAR 100 UNITS/ML 3 ML PEN SC SCH ×2 (09:11→22:00)
[2018-01-31] MEDS: MULTIVITAMIN TAB PO SCH (09:11)
[2018-01-31] MEDS: AMIODARONE 200 MG TAB PO SCH (09:11)
[2018-01-31] MEDS: RANITIDINE HCL 150 MG TAB PO PRN (09:11)
[2018-01-31] MEDS: CALCIUM ACETATE 667MG GELCAP PO SCH ×2 (09:12→18:39)
[2018-01-31] MEDS: ASPIRIN 81 MG ECTAB PO SCH (09:12)
[2018-01-31] MEDS: GABAPENTIN 100 MG CAP PO SCH ×2 (09:12→20:46)
[2018-01-31] MEDS: METAXALONE 800 MG TAB PO SCH ×3 (09:12→20:46)
[2018-01-31] MEDS: LIDODERM (LIDOCAINE) PATCH 5% TD SCH (09:13)
[2018-01-31] MEDS: HEPARIN SOD (PORCINE) 1000 UNIT/ML 10 ML VIAL IV SCH ×3 (11:00→15:15)
--- NOTE | 2018-01-31 12:01 | Pain Management Progress Note ---
Pain Management Progress Note Date of Service Jan 31, 2018. Subjective 72yo F with significant improvement in pain control since time of admission. Her pain remains aggravated with movement, coughing, deep breathing or sneezing activities. Her pain remains in the left lateral and anterior chest wall in the inframammary location. Patient currently on fentanyl 37 mcg dose. Patient has utilized 4mg of IV hydromorphone over the past 24 hours. She is denying any change in her mild sedation with titration of fentanyl. Patient has no further constitutional complaints at this time. Feels she is ready for rehab at this time. Objective Vital Signs: Last Vital Signs Documentation Date Time Temp Pulse Resp B/P (MAP) Pulse Ox O2 Delivery O2 Flow Rate FiO2 01/31/18 11:26 36.4 72 19 128/76 (93) 98 Nasal Cannula 2.0 Physical Exam: General: Patient sitting quietly in exam room in no acute distress finishing her breakfast. Speech and thought process was appropriate. Mood and affect was appropriate. Cognition was intact. Moderate discomfort with movement appreciated. Chest: Patient tender to direct palpation of the lateral anterior chest wall and inframammary location extending from the posterior axillary line through the costosternal junction. Patient remains tender with AP and lateral compression. Neurologic: Cranial nerves grossly intact. Ambulatory function not witness. Laboratory Laboratory Findings 01/31/18 07:40 Red Blood Count 3.68 L, Mean Corpuscular Volume 100.3 H, Mean Corpuscular Hemoglobin 32.9, Mean Corpuscular Hemoglobin Concent 32.8, Mean Platelet Volume 10.7 H, Neutrophils (%) (Auto) 84.1, Lymphocytes (%) (Auto) 7.5, Monocytes (%) ( Auto) 6.7, Eosinophils (%) (Auto) 1.3, Basophils (%) (Auto) 0.1, Neutrophils # ( Auto) 6.29, Lymphocytes # (Auto) 0.56 L, Monocytes # (Auto) 0.50, Eosinophils # (Auto) 0.10, Basophils # (Auto) 0.01 Assessment 1. Intractable left-sided chest wall pain with history of rib fracture 3 of the sixth, seventh and ninth ribs 2. End-stage renal disease on hemodialysis Recommendations 1. Maintain fentanyl 37 mcg every 72 hours and utilize dilaudid PO 2mg po q3 prn pain. 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 2. Will continue to defer rib block due to risks/potential side effects at this time. 3. Will sign off at this time.
--- NOTE | 2018-01-31 12:53 | Progress Note ---
Internal Med Progress Note Date of Service: Jan 31, 2018. Provider Documentation: SUBJECTIVE: sitting on the chair pain is somewhat better but gets it while moving or coughing no sob afebrile eating ok constipated no nausea OBJECTIVE: Vital Signs-as noted below Exam: General-alert and oriented. ENT-Normal hearing Neck-no neck masses Lungs-cta b/l no wheezing no crackles present Heart-S1 and S2 heard regular rate and rhythm no murmurs tenderness below left breast-no erythema or swelling Abdomen-Soft bowel sounds present non tender no distension Extremities-no edema no erythema Neuro-alert and awake moves extremities Lab data as noted below. ASSESSMENT & PLAN: This is a 72 year old female with a PMH of ESRD on HD ; sinus node dysfunction s/p permanent pacemaker in situ; insulin dependent DM2; EVERTON with nocturnal bipap use; idiopathic cardiomyopathy and systolic CHF with EF ~ 40%; hx. of atrial fibrillation no longer on anticoagulation due to hemopericardium; pulmonary HTN, HLD - presents with L sided chest pain. 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 EVERTON with nocturnal Bipap use Atrial Fibrillation Not on anticoagulation secondary to hemopericardium on Amiodarone stable Idiopathic Cardiomyopathy Chronic Systolic CHF EF of ~ 40% On dialysis for fluid management. Chronic thrombocytopenia will f/u labs DVT ppx SCDs FULL, NO MECHANICAL VENT DISPOSITION pt/ot plan for rehab social service for d/c planning Vital Signs: Date Time Temp Pulse Resp B/P (MAP) Pulse Ox O2 Delivery O2 Flow Rate FiO2 01/31/18 11:26 36.4 72 19 128/76 (93) 98 Nasal Cannula 2.0 01/31/18 08:00 Nasal Cannula 1.0 01/31/18 07:13 36.7 69 20 124/79 (94) 96 Nasal Cannula 2.0 01/31/18 04:00 Nasal Cannula 1.0 01/31/18 03:16 36.5 70 18 114/64 (81) 94 CPAP 01/31/18 00:01 Nasal Cannula 1.0 01/30/18 23:22 36.6 71 20 106/68 (81) 98 CPAP 01/30/18 22:17 72 97 2.0 01/30/18 20:00 37.0 71 18 105/67 (80) 94 Nasal Cannula 1.0 01/30/18 20:00 Nasal Cannula 1.0 01/30/18 16:04 36.8 70 18 120/76 (91) 92 Nasal Cannula 1.0 01/30/18 16:00 Nasal Cannula 1.0 Lab Results: Results Past 24 Hours Test 01/30/18 15:52 01/30/18 20:07 01/31/18 07:18 01/31/18 07:40 Range/Units Bedside Glucose 176 167 179 70-90 mg/dl White Blood Count 7.48 4.8-10.8 K/uL Red Blood Count 3.68 4.2-5.4 M/uL Hemoglobin 12.1 12.0-16.0 g/dL Hematocrit 36.9 37-47 % Mean Corpuscular Volume 100.3 80-100 fL Mean Corpuscular Hemoglobin 32.9 25-34 pg Mean Corpuscular Hemoglobin Concent 32.8 32-36 g/dl Platelet Count 114 130-400 K/uL Mean Platelet Volume 10.7 7.4-10.4 fL Neutrophils (%) (Auto) 84.1 % Lymphocytes (%) (Auto) 7.5 % Monocytes (%) (Auto) 6.7 % Eosinophils (%) (Auto) 1.3 % Basophils (%) (Auto) 0.1 % Neutrophils # (Auto) 6.29 1.4-6.5 K/uL Lymphocytes # (Auto) 0.56 1.2-3.4 K/uL Monocytes # (Auto) 0.50 0.11-0.59 K/uL Eosinophils # (Auto) 0.10 0-0.5 K/uL Basophils # (Auto) 0.01 0-0.2 K/uL RDW Standard Deviation 52.7 36.4-46.3 fL RDW Coefficient of Variation 14.5 11.5-14.5 % Immature Granulocyte % (Auto) 0.3 % Immature Granulocyte # (Auto) 0.02 0.00-0.02 K/uL Sodium Level 131 136-145 mmol/L Potassium Level 4.6 3.5-5.1 mmol/L Chloride Level 93 98-107 mmol/L Carbon Dioxide Level 26 21-32 mmol/L Anion Gap 11.0 3-11 mmol/L Blood Urea Nitrogen 61 7-18 mg/dl Creatinine 7.55 0.60-1.20 mg/dl Est Creatinine Clear Calc Drug Dose 6.4 ml/min Estimated GFR () 5.6 Estimated GFR (Non- 4.8 BUN/Creatinine Ratio 8.1 10-20 Random Glucose 190 70-99 mg/dl Calcium Level 9.3 8.5-10.1 mg/dl Test 01/31/18 11:27 Range/Units Bedside Glucose 265 70-90 mg/dl
[2018-01-31] MEDS: ALBUMIN HUMAN 25% 12.5 GM/50 ML VIAL IV SCH ×2 (13:25→14:50)
[2018-01-31] MEDS: FENTANYL PATCH REMOVE & WASTE SCH (14:00)
[2018-01-31] MEDS ORDERED: LACTULOSE SYRUP 30 GM/45 ML UDP PO STA (15:48)
--- NOTE | 2018-01-31 17:29 | Nephrology Progress Note ---
Nephrology Progress Note Date of Service: Jan 31, 2018. Subjective pain mgt following; significant but less L sided rib pain; seen on rounds this am 0930; no sob, no n/v Objective Date Time Temp Pulse Resp B/P (MAP) Pulse Ox O2 Delivery O2 Flow Rate FiO2 01/31/18 17:07 36.4 70 19 98 1.0 01/31/18 17:00 70 107/58 01/31/18 16:45 70 116/60 01/31/18 16:30 70 105/50 01/31/18 16:15 70 95/54 01/31/18 16:00 70 103/52 01/31/18 15:45 70 106/56 01/31/18 15:30 70 98/56 01/31/18 15:15 70 101/53 01/31/18 15:00 70 101/57 01/31/18 14:45 70 105/58 01/31/18 14:30 70 112/55 01/31/18 14:15 70 120/44 01/31/18 14:00 70 114/61 01/31/18 13:45 70 118/63 01/31/18 13:30 73 128/70 01/31/18 13:22 73 127/70 01/31/18 13:17 36.4 70 131/73 (92) 01/31/18 12:00 Nasal Cannula 1.0 01/31/18 11:26 36.4 72 19 128/76 (93) 98 Nasal Cannula 2.0 01/31/18 08:00 Nasal Cannula 1.0 01/31/18 07:13 36.7 69 20 124/79 (94) 96 Nasal Cannula 2.0 01/31/18 04:00 Nasal Cannula 1.0 01/31/18 03:16 36.5 70 18 114/64 (81) 94 CPAP 01/31/18 00:01 Nasal Cannula 1.0 01/30/18 23:22 36.6 71 20 106/68 (81) 98 CPAP 01/30/18 22:17 72 97 2.0 01/30/18 20:00 37.0 71 18 105/67 (80) 94 Nasal Cannula 1.0 01/30/18 20:00 Nasal Cannula 1.0 Physical Exam: General Appearance: WD/WN, on 02NC which she uses at home prn, + obese Eyes: EOMI ENT: hearing grossly normal Neck: supple Respiratory/Chest: no respiratory distress, no accessory muscle use, + decreased breath sounds Cardiovascular: regular rate, rhythm, + pertinent finding (trace BL edema) Abdomen: normal bowel sounds, non tender, soft, + pertinent finding (no arnold) Extremities: + pedal edema Skin: normal color, no jaundice, warm/dry, no rash Current Inpatient Medications Medications (Trade) Dose Ordered Sig/Tyesha Route Start Time Stop Time Status Last Admin Dose Admin Acetaminophen (Tylenol Tab) 650 mg Q4H PRN PO 01/26/18 15:00 02/25/18 14:59 Al Hydrox/Mg Hydrox/Simethicone (Maalox Max Susp) 15 ml Q4H PRN PO 01/26/18 15:00 02/25/18 14:59 Insulin Glargine (Lantus Solostar Pen) 5 units Q12 SC 01/26/18 21:00 02/25/18 20:59 01/31/18 09:11 5 UNITS Insulin Aspart (novoLOG ASPART) SLIDING SCALE If C... ACHS SC 01/26/18 21:00 02/25/18 20:59 01/31/18 12:11 8 UNITS Glucose (Glucose 40% Gel) 15-30 GRAMS 15 GRAMS... UD PRN PO 01/26/18 15:00 02/25/18 14:59 Glucose (Glucose Chew Tab) 4-8 Tablets 4 Tabl... UD PRN PO 01/26/18 15:00 02/25/18 14:59 Dextrose (Dextrose 50% 50ML Syringe) 25-50ML OF 50% DW IV FOR... UD PRN IV 01/26/18 15:00 02/25/18 14:59 Glucagon (Glucagon Inj) 1 mg UD PRN SQ 01/26/18 15:00 02/25/18 14:59 Amiodarone HCl (Cordarone Tab) 200 mg DAILY PO 01/27/18 09:00 02/26/18 08:59 01/31/18 09:11 200 MG Aspirin (Ecotrin Tab) 81 mg DAILY PO 01/27/18 09:00 02/26/18 08:59 01/31/18 09:12 81 MG Atorvastatin Calcium (Lipitor Tab) 40 mg QPM PO 01/26/18 21:00 02/25/18 20:59 01/30/18 21:00 40 MG Clonazepam (Klonopin Tab) 0.25 mg TuThSa@1600 PO 01/29/18 16:00 02/28/18 15:59 01/29/18 17:29 0.25 MG Clonazepam (Klonopin Tab) 0.25 mg HS PRN PO 01/26/18 15:00 02/25/18 14:59 Gabapentin (Neurontin Cap) 200 mg BID PO 01/26/18 21:00 02/25/18 20:59 01/31/18 09:12 200 MG Albuterol/ Ipratropium (Duoneb) 3 ml Q4H PRN INH 01/26/18 15:00 02/25/18 14:59 Levothyroxine Sodium (Synthroid Tab) 50 mcg TuThSa@1600 PO 01/29/18 16:00 02/28/18 15:59 01/29/18 17:24 50 MCG Lorazepam (Ativan Tab) 0.5 mg TID PRN PO 01/26/18 15:00 02/25/18 14:59 01/28/18 07:41 0.5 MG Midodrine (Proamatine Tab) 10 mg TuThSa@1600 PO 01/29/18 16:00 02/28/18 15:59 01/29/18 17:24 10 MG Multivitamins (Multivitamin Tab) 1 tab QAM PO 01/27/18 09:00 02/26/18 08:59 01/31/18 09:11 1 TAB Nitroglycerin (Nitrostat Tab) 0.4 mg PRN UT 01/26/18 15:00 02/25/18 14:59 Ranitidine HCl (zANTac TAB) 150 mg BID PRN PO 01/26/18 15:00 02/25/18 14:59 01/31/18 09:11 150 MG Sertraline HCl (Zoloft Tab) 100 mg HS PO 01/26/18 21:00 02/25/18 20:59 01/30/18 21:00 100 MG Pantoprazole Sodium (Protonix Tab) 40 mg QPM PO 01/26/18 21:00 02/25/18 20:59 01/30/18 21:00 40 MG Miscellaneous (Iv Fluids Completed) 1 ea PRN PRN N/A 01/26/18 15:15 01/26/19 15:14 Calcium Acetate (Phoslo Cap) 667 mg BIDM PO 01/26/18 17:00 02/25/18 16:59 01/31/18 09:12 667 MG Metaxalone (Skelaxin Tab) 400 mg TID PO 01/27/18 09:00 02/26/18 08:59 01/31/18 09:12 400 MG Miscellaneous (Remove Lidoderm Patch) 1 ea DAILY@21 N/A 01/27/18 21:00 02/26/18 20:59 01/30/18 21:00 1 EA Lidocaine (Lidoderm Patch 5%) 2 patch QAM TD 01/28/18 09:00 02/27/18 08:59 01/31/18 09:13 2 PATCH Hydromorphone HCl (Dilaudid Tab) 2 mg Q3H PRN PO 01/28/18 08:45 02/11/18 08:44 01/30/18 14:34 2 MG Fentanyl (Duragesic Patch) 12 mcg Q72H TD 01/28/18 14:00 02/11/18 13:59 01/28/18 13:39 12 MCG Miscellaneous (Fentanyl Patch Remove & Waste) 1 ea Q3D N/A 01/31/18 14:00 03/02/18 13:59 Miscellaneous Information (Check Fentanyl Patch Placement) 1 ea QS N/A 01/28/18 16:00 02/27/18 15:59 01/31/18 08:00 1 EA Fentanyl (Duragesic Patch) 25 mcg Q72H TD 01/29/18 09:00 02/12/18 08:59 01/29/18 10:26 25 MCG Miscellaneous (Fentanyl Patch Remove & Waste) 1 ea Q3D N/A 02/01/18 09:00 03/03/18 08:59 Miscellaneous Information (Check Fentanyl Patch Placement) 1 ea QS N/A 01/29/18 16:00 02/28/18 15:59 01/31/18 08:00 1 EA Hydromorphone HCl (Dilaudid Inj) 1 mg Q4 PRN IV 01/30/18 15:00 02/09/18 14:59 Senna/Docusate Sodium (Senokot S Tab) 2 tab HS PO 01/31/18 21:00 03/02/18 20:59 Last 24 Hours Test 01/30/18 20:07 01/31/18 07:18 01/31/18 07:40 01/31/18 11:27 Bedside Glucose 167 mg/dl 179 mg/dl 265 mg/dl White Blood Count 7.48 K/uL Red Blood Count 3.68 M/uL Hemoglobin 12.1 g/dL Hematocrit 36.9 % Mean Corpuscular Volume 100.3 fL Mean Corpuscular Hemoglobin 32.9 pg Mean Corpuscular Hemoglobin Concent 32.8 g/dl Platelet Count 114 K/uL Mean Platelet Volume 10.7 fL Neutrophils (%) (Auto) 84.1 % Lymphocytes (%) (Auto) 7.5 % Monocytes (%) (Auto) 6.7 % Eosinophils (%) (Auto) 1.3 % Basophils (%) (Auto) 0.1 % Neutrophils # (Auto) 6.29 K/uL Lymphocytes # (Auto) 0.56 K/uL Monocytes # (Auto) 0.50 K/uL Eosinophils # (Auto) 0.10 K/uL Basophils # (Auto) 0.01 K/uL RDW Standard Deviation 52.7 fL RDW Coefficient of Variation 14.5 % Immature Granulocyte % (Auto) 0.3 % Immature Granulocyte # (Auto) 0.02 K/uL Sodium Level 131 mmol/L Potassium Level 4.6 mmol/L Chloride Level 93 mmol/L Carbon Dioxide Level 26 mmol/L Anion Gap 11.0 mmol/L Blood Urea Nitrogen 61 mg/dl Creatinine 7.55 mg/dl Est Creatinine Clear Calc Drug Dose 6.4 ml/min Estimated GFR () 5.6 Estimated GFR (Non- 4.8 BUN/Creatinine Ratio 8.1 Random Glucose 190 mg/dl Calcium Level 9.3 mg/dl Assessment & Plan 72 y/o F w/ ESRD on TRSat HD, ICMO EF 40%, IDDM, A fib not anticoagulated, plm HTN, EVERTON on bipap under observation after presenting w/ ongoing reproducible L sided chest pain. ESRD -for routine HD today -chemistries, blood pressure/HR, hgb, plts all acceptable today -plan next routine tx after today on 02/02 or as clinical needs dictate L chest pain -per primary service; will need adequate analgesia to tolerate hd Appreciate consult; will follow with you. care coordinated w/ Dr. Liriano
[2018-01-31] MEDS: LEVOTHYROXINE 50 MCG TAB PO SCH (18:39)
[2018-01-31] MEDS: MIDODRINE 10 MG TAB PO SCH (18:40)
[2018-01-31] MEDS: CLONAZEPAM 0.5 MG TAB PO SCH (18:43)
[2018-01-31] MEDS: FENTANYL 12 MCG/HR TDSY TD SCH (18:46)
[2018-01-31] MEDS ORDERED: POLYETHYLENE (MIRALAX) 17 GM PACK PO PRN (20:00)
[2018-01-31] MEDS ORDERED: PROCHLORPERAZINE INJ 5 MG in SYRINGE 4 ML IV PRN (20:00)
[2018-01-31] MEDS ORDERED: POLYETHYLENE (MIRALAX) 17 GM PACK PO ONE (20:15)
[2018-01-31] MEDS ORDERED: DOCUSATE SODIUM/SENNA 50/8.6MG TAB PO ONE (20:15)
[2018-01-31] MEDS: ATORVASTATIN 40 MG TAB PO SCH (20:46)
[2018-01-31] MEDS: SERTRALINE HCL 100 MG TAB PO SCH (20:46)
[2018-01-31] MEDS: PANTOprazole SOD 40 MG TAB PO SCH (20:46)
[2018-01-31] MEDS: DOCUSATE SODIUM/SENNA 50/8.6MG TAB PO SCH (21:00)
[2018-01-31] MEDS ORDERED: DOCUSATE SODIUM/SENNA 50/8.6MG TAB PO SCH (21:00)
[2018-01-31] MEDS ORDERED: FENTANYL 25 MCG/HR TDSY TD ONE (23:15)
[2018-02-01] MEDS: INSULIN ASPART 100 UNITS/ML 3 ML PEN SC SCH ×4 (06:30→21:04)
[2018-02-01 07:23] VITALS: BP 111/60; PULSE 71; TEMP 37; O2SAT 95
[2018-02-01] MEDS: DOCUSATE SODIUM/SENNA 50/8.6MG TAB PO SCH ×2 (07:33→20:56)
[2018-02-01] MEDS: ASPIRIN 81 MG ECTAB PO SCH (07:33)
[2018-02-01] MEDS: METAXALONE 800 MG TAB PO SCH ×3 (07:34→20:57)
[2018-02-01] MEDS: MULTIVITAMIN TAB PO SCH (07:34)
[2018-02-01] MEDS: CALCIUM ACETATE 667MG GELCAP PO SCH ×2 (07:34→16:47)
[2018-02-01] MEDS: GABAPENTIN 100 MG CAP PO SCH ×2 (07:34→20:56)
[2018-02-01] MEDS: AMIODARONE 200 MG TAB PO SCH (07:35)
[2018-02-01] MEDS: CHECK FENTANYL PATCH PLACEMENT SCH ×4 (07:35→16:47)
[2018-02-01] MEDS: LIDODERM (LIDOCAINE) PATCH 5% TD SCH (07:36)
[2018-02-01 08:00] VITALS: O2SAT 95
[2018-02-01] MEDS: INSULIN GLARGINE SOLOSTAR 100 UNITS/ML 3 ML PEN SC SCH ×2 (08:52→21:03)
[2018-02-01] MEDS ORDERED: DOCUSATE SODIUM/SENNA 50/8.6MG TAB PO SCH (09:00)
[2018-02-01] MEDS ORDERED: FENTANYL PATCH REMOVE & WASTE SCH (09:00)
--- NOTE | 2018-02-01 13:48 | NEPHROLOGY PROGRESS NOTE ---
DATE: 02/01/2018 NEPHROLOGY PROGRESS NOTE SUBJECTIVE: A 72-year-old female with end-stage renal disease on hemodialysis Sunday, , and Sunday; ischemic cardiomyopathy with an EF of 40%, type 2 diabetes, atrial fibrillation, pulmonary hypertension, obstructive sleep apnea on BiPAP, admitted in the hospital with left-sided chest pain. She had dialysis yesterday as per her normal schedule. A 1762 mL was removed. She denies having any nausea, vomiting, chest pain, shortness of breath. PHYSICAL EXAMINATION: HEENT: Mucous membrane is moist. NECK: Supple. No jugular venous distention. VITAL SIGNS: Blood pressure 111/60, 95% on 2 liter nasal cannula. CHEST: Bilateral clear to auscultation. Occasional prolonged expirations. CARDIOVASCULAR: S1 and S2, regular. ABDOMEN: Soft, nontender. EXTREMITIES: Shows 1+ edema. LABORATORY TESTS: From this morning shows hemoglobin of 12.1, platelet count 114 and stable. No labs for renal panel today. Labs from yesterday showed a sodium 131, potassium 4.6, BUN 61, and creatinine 7.55. ASSESSMENT AND PLAN: A 72-year-old female with end-stage renal disease on chronic hemodialysis Sunday, , and Sunday as well as extensive cardiopulmonary diseases End-stage renal disease: She will get dialysis tomorrow as per her routine schedule. Will do for 3 hours on a 2k bath and take about 2.5 kg off. She does not need procrit. Heparin will be as per her regular prescription. MTDD
[2018-02-01 15:30] VITALS: BP 107/66; PULSE 73; TEMP 36.8; O2SAT 91
[2018-02-01 16:00] VITALS: O2SAT 91
--- NOTE | 2018-02-01 16:03 | Progress Note ---
Internal Med Progress Note Date of Service: Feb 01, 2018. Provider Documentation: SUBJECTIVE: PAIN IS BETTING BETTER MOVED BOWELS LAST NIGHT AFEBRILE NO SOB NO NAUSEA no other complaints OBJECTIVE: Vital Signs-as noted below Exam: General-alert and oriented. ENT-Normal hearing Neck-no neck masses Lungs-cta b/l no wheezing no crackles present Heart-S1 and S2 heard regular rate and rhythm no murmurs tenderness below left breast-no erythema or swelling Abdomen-Soft bowel sounds present non tender no distension Extremities-no edema no erythema Neuro-alert and awake moves extremities Lab data as noted below. ASSESSMENT & PLAN: This is a 72 year old female with a PMH of ESRD on HD ; sinus node dysfunction s/p permanent pacemaker in situ; insulin dependent DM2; EVERTON with nocturnal bipap use; idiopathic cardiomyopathy and systolic CHF with EF ~ 40%; hx. of atrial fibrillation no longer on anticoagulation due to hemopericardium; pulmonary HTN, HLD - presents with L sided chest pain. 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 EVERTON with nocturnal Bipap use Atrial Fibrillation Not on anticoagulation secondary to hemopericardium on Amiodarone stable Idiopathic Cardiomyopathy Chronic Systolic CHF EF of ~ 40% On dialysis for fluid management. Chronic thrombocytopenia will f/u labs DVT ppx SCDs FULL, NO MECHANICAL VENT DISPOSITION pt/ot plan for rehab possibly on Sunday social service for d/c planning Vital Signs: Date Time Temp Pulse Resp B/P (MAP) Pulse Ox O2 Delivery O2 Flow Rate FiO2 02/01/ 15:30 36.8 73 16 107/66 (80) 91 Nasal Cannula 2.0 02/01/18 08:00 95 Nasal Cannula 2.0 02/01/18 07:23 37.0 71 20 111/60 (77) 95 Nasal Cannula 2.0 02/01/18 00:00 Nasal Cannula 1.0 01/31/18 23:34 37.0 70 17 118/70 (86) 95 Nasal Cannula 1.0 01/31/18 18:16 Nasal Cannula 1.0 01/31/18 18:11 36.3 69 18 112/69 (83) 93 Room Air 01/31/18 17:54 36.8 70 117/59 (78) 01/31/18 17:07 36.4 70 19 98 1.0 01/31/18 17:00 70 107/58 01/31/18 16:45 70 116/60 01/31/18 16:30 70 105/50 01/31/18 16:15 70 95/54 Lab Results: Results Past 24 Hours Test 01/31/18 19:14 01/31/18 21:22 02/01/18 07:27 02/01/18 11:26 Range/Units Bedside Glucose 156 206 151 248 70-90 mg/dl
[2018-02-01] MEDS: SERTRALINE HCL 100 MG TAB PO SCH (20:56)
[2018-02-01] MEDS: ATORVASTATIN 40 MG TAB PO SCH (20:57)
[2018-02-01] MEDS: PANTOprazole SOD 40 MG TAB PO SCH (20:57)
[2018-02-02] VITALS (24 sets, daily range): BP systolic 87–114; BP diastolic 47–62; PULSE 68–72; TEMP 36.5–37.3; O2SAT 91–99
[2018-02-02] MEDS: CHECK FENTANYL PATCH PLACEMENT SCH ×8 (00:11→23:47)
[2018-02-02] MEDS: INSULIN ASPART 100 UNITS/ML 3 ML PEN SC SCH ×4 (07:48→21:00)
[2018-02-02] MEDS: INSULIN GLARGINE SOLOSTAR 100 UNITS/ML 3 ML PEN SC SCH ×2 (07:48→21:07)
[2018-02-02] MEDS: GABAPENTIN 100 MG CAP PO SCH ×2 (07:52→20:53)
[2018-02-02] MEDS: MULTIVITAMIN TAB PO SCH (07:52)
[2018-02-02] MEDS: AMIODARONE 200 MG TAB PO SCH (07:52)
[2018-02-02] MEDS: DOCUSATE SODIUM/SENNA 50/8.6MG TAB PO SCH ×2 (07:53→20:52)
[2018-02-02] MEDS: CALCIUM ACETATE 667MG GELCAP PO SCH ×2 (07:53→16:31)
[2018-02-02] MEDS: ASPIRIN 81 MG ECTAB PO SCH (07:53)
[2018-02-02] MEDS: METAXALONE 800 MG TAB PO SCH ×3 (07:53→20:52)
[2018-02-02] MEDS: LIDODERM (LIDOCAINE) PATCH 5% TD SCH (07:54)
[2018-02-02] MEDS: CLONAZEPAM 0.5 MG TAB PO SCH (15:27)
[2018-02-02] MEDS: LEVOTHYROXINE 50 MCG TAB PO SCH (15:27)
[2018-02-02] MEDS: MIDODRINE 10 MG TAB PO SCH (15:28)
--- NOTE | 2018-02-02 16:05 | Progress Note ---
Internal Med Progress Note Date of Service: Feb 02, 2018. Provider Documentation: SUBJECTIVE: seems comfortable has cough afebrile eating ok 'ambulating in room with walker no sob had dialysis today OBJECTIVE: Vital Signs-as noted below Exam: General-alert and oriented. ENT-Normal hearing Neck-no neck masses Lungs-cta b/l no wheezing no crackles present Heart-S1 and S2 heard regular rate and rhythm no murmurs tenderness below left breast-no erythema or swelling Abdomen-Soft bowel sounds present non tender no distension Extremities-no edema no erythema Neuro-alert and awake moves extremities Lab data as noted below. ASSESSMENT & PLAN: This is a 72 year old female with a PMH of ESRD on HD ; sinus node dysfunction s/p permanent pacemaker in situ; insulin dependent DM2; EVERTON with nocturnal bipap use; idiopathic cardiomyopathy and systolic CHF with EF ~ 40%; hx. of atrial fibrillation no longer on anticoagulation due to hemopericardium; pulmonary HTN, HLD - presents with L sided chest pain. 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, initial plan rib block if no improvement but since improving no plans currently for it per pain management currently on fentanyl patch,, po Dilaudid prn, gabapentin and Skelaxin and Lidoderm patch pain is improving appreciate pain management inputs plan for rehab on Sunday to continue same for now and monitor Cough recent imaging studies no infiltrates will repeat cxr Tessalon Perles,Robitussin prn doxycycline ESRD on HD consulted nephrology hemodialysis days are Sunday, , Sunday dialysis as per nephrology Sinus Node Dysfunction s/p Permanent Pacemaker stable Insulin Dependent DM2 Lantus 5 units BID ISS 183/234/158/135 will monitor. EVERTON with nocturnal Bipap use Atrial Fibrillation Not on anticoagulation secondary to hemopericardium on Amiodarone stable Idiopathic Cardiomyopathy Chronic Systolic CHF EF of ~ 40% On dialysis for fluid management. Chronic thrombocytopenia will f/u labs DVT ppx SCDs FULL, NO MECHANICAL VENT DISPOSITION pt/ot plan for rehab possibly on Sunday social service for d/c planning Vital Signs: Date Time Temp Pulse Resp B/P (MAP) Pulse Ox O2 Delivery O2 Flow Rate FiO2 02/02/18 15:26 37.0 71 18 99/62 (74) 99 Nasal Cannula 4.0 02/02/18 09:52 37.3 70 112/55 (74) 02/02/18 08:00 91 Nasal Cannula 2.0 02/02/18 07:12 37.1 71 18 99/47 (64) 96 Nasal Cannula 2.0 02/02/18 00:20 37.0 70 20 114/60 (78) 94 Nasal Cannula 2.0 02/02/18 00:00 91 Nasal Cannula 2.0 Lab Results: Results Past 24 Hours Test 02/01/18 16:31 02/01/18 20:06 02/02/18 07:32 02/02/18 11:57 Range/Units Bedside Glucose 183 234 158 135 70-90 mg/dl
[2018-02-02] MEDS ORDERED: GUAIFENESIN/CODEINE 100MG/10MG 5ML UDC PO PRN (16:15)
--- NOTE | 2018-02-02 18:25 | DIAGNOSTIC IMAGING REPORT ---
SINGLE VIEW CHEST CLINICAL HISTORY: Cough. FINDINGS: An AP, portable, upright chest radiograph is compared to chest x-ray and chest CT dated 01/26/2018. The examination is degraded by portable technique, apical lordotic positioning, and patient rotation. A 2-lead cardiac pacemaker is unchanged in position. The heart is markedly enlarged and there is atherosclerotic calcification of the thoracic aorta. Mild pulmonary vascular congestion is observed. Bibasilar atelectasis is noted. No airspace consolidation or large pleural effusion is identified. No pneumothorax is seen. The skeletal structures are osteopenic. The bony thorax is grossly intact. IMPRESSION: 1. Cardiomegaly and cardiac pacemaker. Mild pulmonary vascular congestion persists. 2. No airspace consolidation or large pleural effusion is identified. Electronically signed by: Rey Cardoza M.D. 02/02/2018 6:23 PM Dictated Date/Time: 02/02/2018 6:21 PM
[2018-02-02] MEDS: BENZONATATE 100MG CAP PO SCH (20:51)
[2018-02-02] MEDS: DOXYCYCLINE HYCLATE 100 MG CAP PO SCH (20:51)
[2018-02-02] MEDS: PANTOprazole SOD 40 MG TAB PO SCH (20:52)
[2018-02-02] MEDS: SERTRALINE HCL 100 MG TAB PO SCH (20:52)
[2018-02-02] MEDS: ATORVASTATIN 40 MG TAB PO SCH (20:53)
[2018-02-03 08:00] VITALS: O2SAT 91
[2018-02-03] MEDS: INSULIN ASPART 100 UNITS/ML 3 ML PEN SC SCH ×4 (08:01→20:16)
[2018-02-03] MEDS: INSULIN GLARGINE SOLOSTAR 100 UNITS/ML 3 ML PEN SC SCH ×2 (08:01→20:17)
[2018-02-03] MEDS: BENZONATATE 100MG CAP PO SCH ×3 (08:06→20:10)
[2018-02-03] MEDS: DOXYCYCLINE HYCLATE 100 MG CAP PO SCH ×2 (08:06→20:11)
[2018-02-03] MEDS: AMIODARONE 200 MG TAB PO SCH (08:07)
[2018-02-03] MEDS: METAXALONE 800 MG TAB PO SCH ×3 (08:07→20:09)
[2018-02-03] MEDS: ASPIRIN 81 MG ECTAB PO SCH (08:07)
[2018-02-03] MEDS: DOCUSATE SODIUM/SENNA 50/8.6MG TAB PO SCH ×2 (08:07→20:10)
[2018-02-03] MEDS: CALCIUM ACETATE 667MG GELCAP PO SCH ×2 (08:07→16:50)
[2018-02-03] MEDS: MULTIVITAMIN TAB PO SCH (08:07)
[2018-02-03] MEDS: LIDODERM (LIDOCAINE) PATCH 5% TD SCH (08:08)
[2018-02-03] MEDS: RANITIDINE HCL 150 MG TAB PO PRN (08:08)
[2018-02-03] MEDS: GABAPENTIN 100 MG CAP PO SCH ×2 (08:08→20:09)
[2018-02-03] MEDS: CHECK FENTANYL PATCH PLACEMENT SCH ×6 (08:09→23:50)
[2018-02-03 08:12] VITALS: BP 123/67; PULSE 70; TEMP 36.8; O2SAT 97
[2018-02-03] MEDS ORDERED: LOPERAMIDE HCL 2 MG CAP PO ONE (10:15)
[2018-02-03] MEDS ORDERED: NURSING VERBAL MED ORDER ONE (10:15)
[2018-02-03] MEDS: FENTANYL PATCH REMOVE & WASTE SCH (13:53)
[2018-02-03] MEDS: FENTANYL 12 MCG/HR TDSY TD SCH (13:58)
[2018-02-03] MEDS ORDERED: FENTANYL 25 MCG/HR TDSY TD SCH (14:00)
[2018-02-03] MEDS ORDERED: FENTANYL PATCH REMOVE & WASTE SCH (14:00)
[2018-02-03 16:18] VITALS: BP 106/65; PULSE 71; TEMP 36.5; O2SAT 97
--- NOTE | 2018-02-03 17:14 | Progress Note ---
Internal Med Progress Note Date of Service: Feb 03, 2018. Provider Documentation: SUBJECTIVE: sitting on the chair comfortably ambulating in room with walker ok pain is better cough is better no sob eating ok awaiting to [facility] tomorrow OBJECTIVE: Vital Signs-as noted below Exam: General-alert and oriented. ENT-Normal hearing Neck-no neck masses Lungs-cta b/l no wheezing no crackles present Heart-S1 and S2 heard regular rate and rhythm no murmurs Abdomen-Soft bowel sounds present non tender no distension Extremities-no edema no erythema Neuro-alert and awake moves extremities Lab data as noted below. ASSESSMENT & PLAN: This is a 72 year old female with a PMH of ESRD on HD ; sinus node dysfunction s/p permanent pacemaker in situ; insulin dependent DM2; EVERTON with nocturnal bipap use; idiopathic cardiomyopathy and systolic CHF with EF ~ 40%; hx. of atrial fibrillation no longer on anticoagulation due to hemopericardium; pulmonary HTN, HLD - presents with L sided chest pain. 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 ESRD on HD consulted nephrology hemodialysis days are Sunday, , Sunday dialysis as per nephrology Sinus Node Dysfunction s/p Permanent Pacemaker stable Insulin Dependent DM2 Lantus 5 units BID ISS 127/160/158/248 will monitor. EVERTON with nocturnal Bipap use Atrial Fibrillation Not on anticoagulation secondary to hemopericardium on Amiodarone stable Idiopathic Cardiomyopathy Chronic Systolic CHF EF of ~ 40% On dialysis for fluid management. Chronic thrombocytopenia will f/u labs DVT ppx SCDs FULL, NO MECHANICAL VENT DISPOSITION pt/ot plan for rehab possibly on Sunday social service for d/c planning Vital Signs: Date Time Temp Pulse Resp B/P (MAP) Pulse Ox O2 Delivery O2 Flow Rate FiO2 02/03/18 16:18 36.5 71 18 106/65 (79) 97 Nasal Cannula 2.0 02/03/18 16:00 Nasal Cannula 2.0 02/03/18 08:12 36.8 70 20 123/67 (85) 97 Nasal Cannula 2.0 02/03/18 08:00 91 Nasal Cannula 2.0 02/02/18 23:42 Nasal Cannula 2.0 02/02/18 23:27 37.1 69 18 97/56 (70) 97 Nasal Cannula 1.0 02/02/18 22:17 97 Nasal Cannula 2.0 Lab Results: Results Past 24 Hours Test 02/02/18 19:35 02/03/18 07:37 02/03/18 11:41 Range/Units Bedside Glucose 160 158 248 70-90 mg/dl
[2018-02-03 19:50] VITALS: O2SAT 97
[2018-02-03] MEDS: SERTRALINE HCL 100 MG TAB PO SCH (20:08)
[2018-02-03] MEDS: ATORVASTATIN 40 MG TAB PO SCH (20:08)
[2018-02-03] MEDS: PANTOprazole SOD 40 MG TAB PO SCH (20:10)
[2018-02-03 21:00] VITALS: O2SAT 92
[2018-02-03 23:00] VITALS: BP 112/67; PULSE 70; TEMP 36.7; O2SAT 97
[2018-02-04 07:19] LABS: BASO % 0.5 %; BASO ABS # 0.04 K/uL (0-0.2); EOS % 1.9 %; EOS ABS # 0.16 K/uL (0-0.5); HEMATOCRIT 33.3 % (37-47); HEMOGLOBIN 10.9 g/dL (12.0-16.0); IG# 0.02 K/uL (0.00-0.02); LYMPH % 7.8 %; LYMPH ABS # 0.65 K/uL (1.2-3.4); MEAN CELL VOLUME 98.5 fL (80-100); MEAN CORPUSCULAR HEMOGLOBIN 32.2 pg (25-34); MEAN CORPUSCULAR HGB CONC 32.7 g/dl (32-36); MEAN PLATELET VOLUME 11.2 fL (7.4-10.4); MONO % 6.9 %; MONO ABS # 0.58 K/uL (0.11-0.59); NEUT % 82.7 %; PLATELET COUNT 122 K/uL (130-400); RED CELL DISTRIBUTION WIDTH SD 50.1 fL (36.4-46.3); WHITE BLOOD COUNT 8.35 K/uL (4.8-10.8)
[2018-02-04 07:40] VITALS: BP 100/60; PULSE 67; TEMP 36.8; O2SAT 97
[2018-02-04] MEDS: INSULIN ASPART 100 UNITS/ML 3 ML PEN SC SCH ×2 (07:48→12:01)
[2018-02-04] MEDS: INSULIN GLARGINE SOLOSTAR 100 UNITS/ML 3 ML PEN SC SCH (07:48)
[2018-02-04 07:58] LABS: CREATININE 6.46 mg/dl (0.60-1.20); POTASSIUM 3.4 mmol/L (3.5-5.1)
[2018-02-04 08:00] VITALS: O2SAT 91
[2018-02-04] MEDS: RANITIDINE HCL 150 MG TAB PO PRN (08:13)
[2018-02-04] MEDS: CHECK FENTANYL PATCH PLACEMENT SCH ×2 (08:13)
[2018-02-04] MEDS: CALCIUM ACETATE 667MG GELCAP PO SCH (08:13)
[2018-02-04] MEDS: AMIODARONE 200 MG TAB PO SCH (08:14)
[2018-02-04] MEDS: MULTIVITAMIN TAB PO SCH (08:14)
[2018-02-04] MEDS: DOXYCYCLINE HYCLATE 100 MG CAP PO SCH (08:14)
[2018-02-04] MEDS: BENZONATATE 100MG CAP PO SCH ×2 (08:14→13:50)
[2018-02-04] MEDS: ASPIRIN 81 MG ECTAB PO SCH (08:14)
[2018-02-04] MEDS: GABAPENTIN 100 MG CAP PO SCH (08:15)
[2018-02-04] MEDS: DOCUSATE SODIUM/SENNA 50/8.6MG TAB PO SCH (08:15)
[2018-02-04] MEDS: METAXALONE 800 MG TAB PO SCH ×2 (08:15→13:50)
[2018-02-04] MEDS: LIDODERM (LIDOCAINE) PATCH 5% TD SCH (08:16)
--- NOTE | 2018-02-04 09:08 | Nephrology Progress Note ---
Nephrology Progress Note Date of Service: Feb 04, 2018. Subjective 72 yo female with ESRD on t/h/s who presented with multiple rib fractures and undergoing pain management. pt comfortable. on low level oxygen although was not on oxygen prior to coming to the hospital per the patient. dialysis went well on Sunday. Objective Date Time Temp Pulse Resp B/P (MAP) Pulse Ox O2 Delivery O2 Flow Rate FiO2 02/04/18 08:00 91 Nasal Cannula 2.0 02/04/18 07:40 36.8 67 18 100/60 (73) 97 Nasal Cannula 2.0 02/03/18 23:20 Nasal Cannula 2.0 02/03/18 23:00 36.7 70 18 112/67 (82) 97 Nasal Cannula 2.0 02/03/18 21:00 92 Room Air 02/03/18 19:50 97 Nasal Cannula 2.0 02/03/18 16:18 36.5 71 18 106/65 (79) 97 Nasal Cannula 2.0 02/03/18 16:00 Nasal Cannula 2.0 Physical Exam: General-aaox3, obese Eyes-no scleral icterus ENT-mmm Neck-supple Lungs-cta Heart-rrr Abdomen-bs+ s/nt/nd Extremities-no c/c/e Neuro-nonfocal Current Inpatient Medications Medications (Trade) Dose Ordered Sig/Tyesha Route Start Time Stop Time Status Last Admin Dose Admin Acetaminophen (Tylenol Tab) 650 mg Q4H PRN PO 01/26/18 15:00 02/25/18 14:59 Al Hydrox/Mg Hydrox/Simethicone (Maalox Max Susp) 15 ml Q4H PRN PO 01/26/18 15:00 02/25/18 14:59 Insulin Glargine (Lantus Solostar Pen) 5 units Q12 SC 01/26/18 21:00 02/25/18 20:59 02/04/18 07:48 5 UNITS Insulin Aspart (novoLOG ASPART) SLIDING SCALE If C... ACHS SC 01/26/18 21:00 02/25/18 20:59 02/04/18 07:48 4 UNITS Glucose (Glucose 40% Gel) 15-30 GRAMS 15 GRAMS... UD PRN PO 01/26/18 15:00 02/25/18 14:59 Glucose (Glucose Chew Tab) 4-8 Tablets 4 Tabl... UD PRN PO 01/26/18 15:00 02/25/18 14:59 Dextrose (Dextrose 50% 50ML Syringe) 25-50ML OF 50% DW IV FOR... UD PRN IV 01/26/18 15:00 02/25/18 14:59 Glucagon (Glucagon Inj) 1 mg UD PRN SQ 01/26/18 15:00 02/25/18 14:59 Amiodarone HCl (Cordarone Tab) 200 mg DAILY PO 01/27/18 09:00 02/26/18 08:59 02/04/18 08:14 200 MG Aspirin (Ecotrin Tab) 81 mg DAILY PO 01/27/18 09:00 02/26/18 08:59 02/04/18 08:14 81 MG Atorvastatin Calcium (Lipitor Tab) 40 mg QPM PO 01/26/18 21:00 02/25/18 20:59 02/03/18 20:08 40 MG Clonazepam (Klonopin Tab) 0.25 mg TuThSa@1600 PO 01/29/18 16:00 02/28/18 15:59 02/02/18 15:27 0.25 MG Clonazepam (Klonopin Tab) 0.25 mg HS PRN PO 01/26/18 15:00 02/25/18 14:59 Gabapentin (Neurontin Cap) 200 mg BID PO 01/26/18 21:00 02/25/18 20:59 02/04/18 08:15 200 MG Albuterol/ Ipratropium (Duoneb) 3 ml Q4H PRN INH 01/26/18 15:00 02/25/18 14:59 Levothyroxine Sodium (Synthroid Tab) 50 mcg TuThSa@1600 PO 01/29/18 16:00 02/28/18 15:59 02/02/18 15:27 50 MCG Lorazepam (Ativan Tab) 0.5 mg TID PRN PO 01/26/18 15:00 02/25/18 14:59 01/28/18 07:41 0.5 MG Midodrine (Proamatine Tab) 10 mg TuThSa@1600 PO 01/29/18 16:00 02/28/18 15:59 02/02/18 15:28 10 MG Multivitamins (Multivitamin Tab) 1 tab QAM PO 01/27/18 09:00 02/26/18 08:59 02/04/18 08:14 1 TAB Nitroglycerin (Nitrostat Tab) 0.4 mg PRN UT 01/26/18 15:00 02/25/18 14:59 Ranitidine HCl (zANTac TAB) 150 mg BID PRN PO 01/26/18 15:00 02/25/18 14:59 02/04/18 08:13 150 MG Sertraline HCl (Zoloft Tab) 100 mg HS PO 01/26/18 21:00 02/25/18 20:59 02/03/18 20:08 100 MG Pantoprazole Sodium (Protonix Tab) 40 mg QPM PO 01/26/18 21:00 02/25/18 20:59 02/03/18 20:10 40 MG Miscellaneous (Iv Fluids Completed) 1 ea PRN PRN N/A 01/26/18 15:15 01/26/19 15:14 Calcium Acetate (Phoslo Cap) 667 mg BIDM PO 01/26/18 17:00 02/25/18 16:59 02/04/18 08:13 667 MG Metaxalone (Skelaxin Tab) 400 mg TID PO 01/27/18 09:00 02/26/18 08:59 02/04/18 08:15 400 MG Miscellaneous (Remove Lidoderm Patch) 1 ea DAILY@21 N/A 01/27/18 21:00 02/26/18 20:59 02/03/18 20:07 1 EA Lidocaine (Lidoderm Patch 5%) 2 patch QAM TD 01/28/18 09:00 02/27/18 08:59 02/04/18 08:16 2 PATCH Hydromorphone HCl (Dilaudid Tab) 2 mg Q3H PRN PO 01/28/18 08:45 02/11/18 08:44 01/30/18 14:34 2 MG Fentanyl (Duragesic Patch) 12 mcg Q72H TD 01/28/18 14:00 02/11/18 13:59 02/03/18 13:58 12 MCG Miscellaneous (Fentanyl Patch Remove & Waste) 1 ea Q3D N/A 01/31/18 14:00 03/02/18 13:59 02/03/18 13:53 1 EA Miscellaneous Information (Check Fentanyl Patch Placement) 1 ea QS N/A 01/28/18 16:00 02/27/18 15:59 02/04/18 08:13 1 EA Miscellaneous Information (Check Fentanyl Patch Placement) 1 ea QS N/A 01/29/18 16:00 02/28/18 15:59 02/04/18 08:13 1 EA Hydromorphone HCl (Dilaudid Inj) 1 mg Q4 PRN IV 01/30/18 15:00 02/09/18 14:59 Prochlorperazine Edisylate 5 mg/ Syringe 5 ml @ 5 mls/min Q6H PRN IV 01/31/18 20:00 03/02/18 19:59 01/31/18 21:19 5 MLS/MIN Polyethylene (Miralax Powder Packet) 17 gm DAILY PRN PO 01/31/18 20:00 03/02/18 19:59 Senna/Docusate Sodium (Senokot S Tab) 2 tab BID PO 01/31/18 21:00 03/03/18 08:59 02/04/18 08:15 2 TAB Fentanyl (Duragesic Patch) 25 mcg Q72H TD 02/03/18 14:00 02/17/18 13:59 02/03/18 13:58 25 MCG Miscellaneous (Fentanyl Patch Remove & Waste) 1 ea Q3D N/A 02/03/18 14:00 03/05/18 13:59 02/03/18 13:53 1 EA Benzonatate (Tessalon Perles Cap) 100 mg TID PO 02/02/18 21:00 03/04/18 20:59 02/04/18 08:14 100 MG Codeine Phosphate/ Guaifenesin (Robitussin-AC Sugar Free Syrup) 5 ml Q6H PRN PO 02/02/18 16:15 03/04/18 16:14 Doxycycline Hyclate (Vibramycin Cap) 100 mg BID PO 02/02/18 21:00 02/09/18 20:59 02/04/18 08:14 100 MG Last 24 Hours Test 02/03/18 11:41 02/03/18 16:40 02/03/18 20:11 02/04/18 06:29 Bedside Glucose 248 mg/dl 73 mg/dl 191 mg/dl White Blood Count 8.35 K/uL Red Blood Count 3.38 M/uL Hemoglobin 10.9 g/dL Hematocrit 33.3 % Mean Corpuscular Volume 98.5 fL Mean Corpuscular Hemoglobin 32.2 pg Mean Corpuscular Hemoglobin Concent 32.7 g/dl Platelet Count 122 K/uL Mean Platelet Volume 11.2 fL Neutrophils (%) (Auto) 82.7 % Lymphocytes (%) (Auto) 7.8 % Monocytes (%) (Auto) 6.9 % Eosinophils (%) (Auto) 1.9 % Basophils (%) (Auto) 0.5 % Neutrophils # (Auto) 6.90 K/uL Lymphocytes # (Auto) 0.65 K/uL Monocytes # (Auto) 0.58 K/uL Eosinophils # (Auto) 0.16 K/uL Basophils # (Auto) 0.04 K/uL RDW Standard Deviation 50.1 fL RDW Coefficient of Variation 14.0 % Immature Granulocyte % (Auto) 0.2 % Immature Granulocyte # (Auto) 0.02 K/uL Sodium Level 131 mmol/L Potassium Level 3.4 mmol/L Chloride Level 93 mmol/L Carbon Dioxide Level 27 mmol/L Anion Gap 11.0 mmol/L Blood Urea Nitrogen 46 mg/dl Creatinine 6.46 mg/dl Est Creatinine Clear Calc Drug Dose 7.5 ml/min Estimated GFR () 6.7 Estimated GFR (Non- 5.8 BUN/Creatinine Ratio 7.1 Random Glucose 130 mg/dl Calcium Level 9.0 mg/dl Test 02/04/18 07:25 Bedside Glucose 137 mg/dl Date/Time Source Procedure Growth Status 02/03/18 20:30 Stool C.difficile Toxin B Gene (PCR) - Final No C. difficile toxin B gene detected Complete Assessment & Plan ESRD-will continue dialysis t/h/s. electrolytes and volume status are acceptable. ok from renal perspective to be discharged once medically cleared. plan on dialysis again tomorrow if still an inpatient.
--- NOTE | 2018-02-04 11:32 | Progress Note ---
Internal Med Progress Note Date of Service: Feb 04, 2018. Provider Documentation: SUBJECTIVE: sitting on the chair comfortably eating fine pain is well controlled moved bowels yesterday no nausea or abdominal pain cough is better ok for [facility] today OBJECTIVE: Vital Signs-as noted below Exam: General-alert and oriented. ENT-Normal hearing Neck-no neck masses Lungs-cta b/l no wheezing no crackles present Heart-S1 and S2 heard regular rate and rhythm no murmurs Abdomen-Soft bowel sounds present non tender no distension Extremities-no edema no erythema Neuro-alert and awake moves extremities Lab data as noted below. ASSESSMENT & PLAN: This is a 72 year old female with a PMH of ESRD on HD ; sinus node dysfunction s/p permanent pacemaker in situ; insulin dependent DM2; EVERT[place] with nocturnal bipap use; idiopathic cardiomyopathy and systolic CHF with EF ~ 40%; hx. of atrial fibrillation no longer on anticoagulation due to hemopericardium; pulmonary HTN, HLD - presents with L sided chest pain. 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 Severe Pul Htn requiring oxygen needs f/u with pulmonary and cardiology two step prior to discharge ESRD on HD consulted nephrology hemodialysis days are Sunday, , Sunday dialysis as per nephrology Sinus Node Dysfunction s/p Permanent Pacemaker stable Insulin Dependent DM2 Lantus 5 units BID ISS d/c on home meds EVERTON with nocturnal Bipap use Atrial Fibrillation Not on anticoagulation secondary to hemopericardium on Amiodarone stable Idiopathic Cardiomyopathy Chronic Systolic CHF EF of ~ 40% On dialysis for fluid management. Chronic thrombocytopenia will f/u labs [facility] to [facility] Vital Signs: Date Time Temp Pulse Resp B/P (MAP) Pulse Ox O2 Delivery O2 Flow Rate FiO2 4/2/18 08:00 91 Nasal Cannula 2.0 02/04/18 07:40 36.8 67 18 100/60 (73) 97 Nasal Cannula 2.0 02/03/18 23:20 Nasal Cannula 2.0 02/03/18 23:00 36.7 70 18 112/67 (82) 97 Nasal Cannula 2.0 02/03/18 21:00 92 Room Air 02/03/18 19:50 97 Nasal Cannula 2.0 02/03/18 16:18 36.5 71 18 106/65 (79) 97 Nasal Cannula 2.0 02/03/18 16:00 Nasal Cannula 2.0 Lab Results: Results Past 24 Hours Test 02/03/18 11:41 02/03/18 16:40 02/03/18 20:11 02/04/18 06:29 Range/Units Bedside Glucose 248 73 191 70-90 mg/dl White Blood Count 8.35 4.8-10.8 K/uL Red Blood Count 3.38 4.2-5.4 M/uL Hemoglobin 10.9 12.0-16.0 g/dL Hematocrit 33.3 37-47 % Mean Corpuscular Volume 98.5 80-100 fL Mean Corpuscular Hemoglobin 32.2 25-34 pg Mean Corpuscular Hemoglobin Concent 32.7 32-36 g/dl Platelet Count 122 130-400 K/uL Mean Platelet Volume 11.2 7.4-10.4 fL Neutrophils (%) (Auto) 82.7 % Lymphocytes (%) (Auto) 7.8 % Monocytes (%) (Auto) 6.9 % Eosinophils (%) (Auto) 1.9 % Basophils (%) (Auto) 0.5 % Neutrophils # (Auto) 6.90 1.4-6.5 K/uL Lymphocytes # (Auto) 0.65 1.2-3.4 K/uL Monocytes # (Auto) 0.58 0.11-0.59 K/uL Eosinophils # (Auto) 0.16 0-0.5 K/uL Basophils # (Auto) 0.04 0-0.2 K/uL RDW Standard Deviation 50.1 36.4-46.3 fL RDW Coefficient of Variation 14.0 11.5-14.5 % Immature Granulocyte % (Auto) 0.2 % Immature Granulocyte # (Auto) 0.02 0.00-0.02 K/uL Sodium Level 131 136-145 mmol/L Potassium Level 3.4 3.5-5.1 mmol/L Chloride Level 93 98-107 mmol/L Carbon Dioxide Level 27 21-32 mmol/L Anion Gap 11.0 3-11 mmol/L Blood Urea Nitrogen 46 7-18 mg/dl Creatinine 6.46 0.60-1.20 mg/dl Est Creatinine Clear Calc Drug Dose 7.5 ml/min Estimated GFR () 6.7 Estimated GFR (Non- 5.8 BUN/Creatinine Ratio 7.1 10-20 Random Glucose 130 70-99 mg/dl Calcium Level 9.0 8.5-10.1 mg/dl Test 02/04/18 07:25 Range/Units Bedside Glucose 137 70-90 mg/dl Microbiology Results 02/03/18 C.difficile Toxin B Gene (PCR) - Final, Complete No C. difficile toxin B gene detected
[2018-02-04] MEDS ORDERED: SENN8.6T7 PO (11:35)
[2018-02-04] MEDS ORDERED: DLD/2 PO (11:35)
[2018-02-04] MEDS ORDERED: BENZ100C7 PO (11:35)
[2018-02-04] MEDS ORDERED: MRLP17X PO (11:35)
[2018-02-04] MEDS ORDERED: DRGTP25 TD (11:35)
[2018-02-04] MEDS ORDERED: DXY100 PO (11:35)
[2018-02-04] MEDS ORDERED: DRGTP12 TD (11:35)
--- NOTE | 2018-02-04 11:39 | Discharge Instructions ---
Discharge Instructions Date of Service Feb 04, 2018. Admission Reason for Admission: Ribs,Multiple Fractures, Severe Pain Discharge Discharge Diagnosis / Problem: SEVERE LEFT SIDED CHEST PAIN, MULTIPLE LEFT RIB FRACTURES Discharge Goals Goal(s): Decrease discomfort, Improve function Activity Recommendations Activity Level: Ambulates in room, Assistance Required Therapies: Physical Therapy, Occupational Therapy . Additional Information Patient informed of condition: Yes Advance Directives: Yes DNR: No Level of Care: Acute Rehab Communicable Disease: No Prognosis: Stable Oxygen at (LPM): 2LTS Mchugh Catheter: No Instructions / Follow-Up Instructions / Follow-Up FOLLOWUP WITH FAMILY DOCTOR ONE WEEK ON DISCHARGE FOLLOWUP WITH PAIN MANAGEMENT ONE WEEK ON DISCHARGE FOLLOWUP WITH CARDIOLOGY/PULMONARY FOR PULMONARY HYPERTENSION ONE TO TWO WEEKS ON DISCHARGE TWO STEP HOME OXYGEN EVALUATION PRIOR TO DISCHARGE Current Hospital Diet Patient's current hospital diet: AHA Diet (Heart Healthy), Diabetes Type 2 Diet , Renal Diet Discharge Diet Recommended Diet: AHA Diet (Heart Healthy), Diabetes Type 2 Diet, Renal Diet Pending Studies Studies pending at discharge: no Physician Orders On Transfer Special Precautions: FALL AND ASPIRATION PRECAUTIONS Vital Signs: EVERY 8HRS Laboratory Results Hemoglobin A1c Test 01/27/18 03:28 Range/Units Estimated Average Glucose 160 mg/dl Hemoglobin A1c 7.2 H 4.5-5.6 % Medical Emergencies . Who to Call and When: Medical Emergencies: If at any time you feel your situation is an emergency, please call 911 immediately. . Non-Emergent Contact Non-Emergency issues call your: Primary Care Provider . . "Provider Documentation" section prepared by Carroll Liriano. . Core Measure Problem Core Measures: None
--- NOTE | 2018-02-04 11:44 | Discharge Summary ---
Discharge Summary Date of Service Feb 04, 2018. Discharge Summary Admission Date: Jan 29, 2018 at 10:06 Discharge Date: Feb 04, 2018 Discharge Disposition: Rehab ([facility]) Principal Diagnosis: SEVRE LEFT SIDED CHEST PAIN. LEFT SIDED MULTIPLE RIB FX Secondary Diagnoses/Problems: 1) Altered mental status (2) Ankle sprain (3) Atrial fibrillation (4) Bronchitis (5) Cardiomegaly (6) Chest pain (7) CHF (congestive heart failure) (8) CHF (congestive heart failure) (9) Chronic back pain (10) Diabetic neuropathy (11) DM2 (diabetes mellitus, type 2) (12) AGUILERA (dyspnea on exertion) (13) Elevated troponin (14) End stage renal disease (15) ESRD (end stage renal disease) (16) Exertional chest pain (17) Fall (18) Falls (19) AC (generalized anxiety disorder) (20) GERD (gastroesophageal reflux disease) (21) Healed or old pulmonary embolism (22) Heart failure (23) Heat exhaustion (24) HLD (hyperlipidemia) (25) HTN (hypertension) (26) Hyperkalemia (27) Left sided chest pain (28) Leg pain, right (29) Low back pain potentially associated with radiculopathy (30) Melanoma (31) Nausea (32) Obesity hypoventilation syndrome (33) Orthostatic hypotension (34) EVERTON (obstructive sleep apnea) (35) Pacemaker (36) Pulmonary HTN (37) Rib contusion (38) Sciatica (39) Shortness of breath (40) SI (sacroiliac) joint dysfunction (41) SOB (shortness of breath) (42) TIA (transient ischemic attack) (43) Upper respiratory infection Procedures: CTA CHEST: 1. No evidence for pulmonary embolus. 2. Mild bibasilar interstitial and/or atelectatic change. 3. Mild congestive failure. THORACIC SPINE CT: Degenerative disc changes throughout. No evidence for an acute bony abnormality. Osteopenia. RIB XRAY: Nondisplaced cortical fractures left sixth seventh and ninth ribs. No evidence pneumothorax. CXR 02/02/18: 1. Cardiomegaly and cardiac pacemaker. Mild pulmonary vascular congestion persists. 2. No airspace consolidation or large pleural effusion is identified. ECHO: * The left ventricle is normal in size. * There is moderate concentric left ventricular hypertrophy. * Left ventricular systolic function is normal. * Flattened septum is consistent with RV pressure overload. * There is moderate septal hypokinesis. * Ejection Fraction = 45-50%. * The right ventricle is mild to moderately dilated. * The left atrium is moderately dilated. * The right atrium is severely dilated. * There is mild to moderate mitral regurgitation. * There is severe tricuspid regurgitation. * Severe pulmonary hypertension is present. * PASP of >80 mmHg Consultations: NEPHROLOGY PAIN MANAGEMENT Medication Reconciliation New Medications: Benzonatate (Benzonatate) 100 Mg Cap 100 MG PO TID for 3 Days, #9 CAP Doxycycline Hyclate (Doxycycline Hyclate) 100 Mg Cap 100 MG PO BID for 4 Days, #8 CAP Fentanyl (Fentanyl) 25 Mcg Tdsy 25 MCG TD Q72H, #3 Fentanyl (Fentanyl) 12 Mcg Tdsy 12 MCG TD Q72H, #3 Hydromorphone HCl (Hydromorphone HCl) 2 Mg Tab 2 MG PO Q3H PRN for Pain, #14 TAB Polyethylene (Miralax) 17 Gm Pow 17 GM PO DAILY PRN for Constipation for 30 Days Sennosides-Docusate Sodium (Senokot S) 1 Tab Tab 2 TAB PO BID, #30 TAB Continued Medications: Acetaminophen (Tylenol Extra Strength) 500 Mg Tab 8732-2252 MG PO Q4HPRN PRN for Pain Albuterol Sulfate (Proventil Hfa) 108 Mcg/Act Aer 2 PUFF INH Q6H PRN for Wheezing Amiodarone Hcl (Cordarone) 200 Mg Tab 200 MG PO DAILY, TAB Aspirin (Aspirin EC Low Dose) 81 Mg Ectab 81 MG PO DAILY Atorvastatin (Lipitor) 40 Mg Tab 40 MG PO QPM, TAB Calcium Acetate (Phosphate Bin (Calcium Acetate) 667 Mg Tab 667 MG PO QPM Clonazepam (Klonopin) 0.5 Mg Tab 0.25 MG PO HS PRN for Anxiety Clonazepam (Clonazepam) 0.5 Mg Tab 0.25 MG PO 3XWK IN AM TAKE TUES, THUR, AND SAT Esomeprazole Magnesium (Nexium) 40 Mg Cap 40 MG PO QPM, CAP Fluticasone Propionate (Nasal) (Flonase Allergy Relief) 50 Mcg/Act Spr 2 SPRAYS NA DAILY Gabapentin (Neurontin) 100 Mg Cap 200 MG PO BID, CAP Guaifenesin (Organ-I Nr) 200 Mg Tab 200 MG PO Q8H PRN for Cough for 10 Days, #30 TAB Home O2 Therapy (Oxygen) Gas 2 LITERS NA HS PRN for Sleep, BTL Insulin Glargine (Lantus) 100 Unit/Ml Inj 10 UNITS SC HS, VIAL Insulin Lispro (Human) (Humalog) 100 Unit/Ml Inj 5 UNITS SQ TIDM Ipratropium-Albuterol (Duoneb) 3 Ml Nebu 3 ML INH Q4H PRN for SOB/Wheezing, INHA Levothyroxine Sodium (Levothyroxine Sodium) 50 Mcg Tab 50 MCG PO UD with dialysis Lorazepam (Ativan) 0.5 Mg Tab 0.5 MG PO TID PRN for Anxiety/Agitation, TAB Midodrine Hcl (Midodrine Hcl) 10 Mg Tab 10 MG PO 3XWK TAKES ,,SAT Multiple Vitamin (Multivitamin) 1 Tab Tab 1 TAB PO QAM Nitroglycerin (Nitrostat) 0.4 Mg Sub 0.4 MG UT PRN, BTL Ranitidine (Zantac) 150 Mg Tab 150 MG PO BID PRN for Heartburn Sertraline Hcl (Zoloft) 100 Mg Tab 100 MG PO HS Discontinued Medications: Oxycodone/Acetaminophen 5MG/325MG (Percocet 5MG/325MG) Tab 1 TABLET PO Q6H PRN for Pain, TAB PAIN Admission Information HPI (per Admitting provider): This is a 72 year old female with a PMH of ESRD on HD ; sinus node dysfunction s/p permanent pacemaker in situ; insulin dependent DM2; EVERTON with nocturnal bipap use; idiopathic cardiomyopathy and systolic CHF with EF ~ 40%; hx. of atrial fibrillation no longer on anticoagulation due to hemopericardium; pulmonary HTN, HLD - presents with L sided chest pain. Patient presented to the ED on 01/25 with similar symptoms; she was discharged due to chest pain being reproducible and w/up at the time being negative. She presented back to the ED due to worsening L sided chest pain; axillary pain. The pain is worse with palpation. Chest CT performed and negative. Initial cardiac enzymes negative. Patient was supposed to go for dialysis today, but missed it. Minimal shortness of breath with exertion. Physical Exam (per Admitting): General Appearance: WD/WN, no apparent distress Head: normocephalic, atraumatic Eyes: normal inspection ENT: hearing grossly normal Neck: supple Respiratory/Chest: lungs clear, normal breath sounds, no respiratory distress, no accessory muscle use, + pertinent finding (+chest tenderness at the L axillary region) Cardiovascular: regular rate, rhythm, no murmur Abdomen/GI: normal bowel sounds, non tender, + distended Back: no muscle spasm Extremities/Musculoskelatal: no calf tenderness, no pedal edema, normal range of motion, + pertinent finding (LUE fistula, L shoulder post-surgical scarring) Neurologic/Psych: no motor/sensory deficits, alert, normal mood/affect Skin: normal color, warm/dry, no rash Lymphatic: no adenopathy Hospital Course This is a 72 year old female with a PMH of ESRD on HD ; sinus node dysfunction s/p permanent pacemaker in situ; insulin dependent DM2; EVERTON with nocturnal bipap use; idiopathic cardiomyopathy and systolic CHF with EF ~ 40%; hx. of atrial fibrillation no longer on anticoagulation due to hemopericardium; pulmonary HTN, HLD - presents with L sided chest pain. 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 Severe Pul Htn requiring oxygen needs f/u with pulmonary and cardiology two step prior to discharge ESRD on HD consulted nephrology hemodialysis days are Sunday, , Sunday dialysis as per nephrology Sinus Node Dysfunction s/p Permanent Pacemaker stable Insulin Dependent DM2 Lantus 5 units BID ISS d/c on home meds EVERTON with nocturnal Bipap use Atrial Fibrillation Not on anticoagulation secondary to hemopericardium on Amiodarone stable Idiopathic Cardiomyopathy Chronic Systolic CHF EF of ~ 40% On dialysis for fluid management. Chronic thrombocytopenia will f/u labs Discharging to [facility] today Total time spent on discharge = 40MINUTES This includes examination of the patient, discharge planning, medication reconciliation, and communication with other providers. Discharge Instructions Discharge Instructions Date of Service Feb 04, 2018. Admission Reason for Admission: Ribs,Multiple Fractures, Severe Pain Discharge Discharge Diagnosis / Problem: SEVERE LEFT SIDED CHEST PAIN, MULTIPLE LEFT RIB FRACTURES Discharge Goals Goal(s): Decrease discomfort, Improve function Activity Recommendations Activity Level: Ambulates in room, Assistance Required Therapies: Physical Therapy, Occupational Therapy . Additional Information Patient informed of condition: Yes Advance Directives: Yes DNR: No Level of Care: Acute Rehab Communicable Disease: No Prognosis: Stable Oxygen at (LPM): 2LTS Mchugh Catheter: No Instructions / Follow-Up Instructions / Follow-Up FOLLOWUP WITH FAMILY DOCTOR ONE WEEK ON DISCHARGE FOLLOWUP WITH PAIN MANAGEMENT ONE WEEK ON DISCHARGE FOLLOWUP WITH CARDIOLOGY/PULMONARY FOR PULMONARY HYPERTENSION ONE TO TWO WEEKS ON DISCHARGE TWO STEP HOME OXYGEN EVALUATION PRIOR TO DISCHARGE Current Hospital Diet Patient's current hospital diet: AHA Diet (Heart Healthy), Diabetes Type 2 Diet , Renal Diet Discharge Diet Recommended Diet: AHA Diet (Heart Healthy), Diabetes Type 2 Diet, Renal Diet Pending Studies Studies pending at discharge: no Physician Orders On Transfer Special Precautions: FALL AND ASPIRATION PRECAUTIONS Vital Signs: EVERY 8HRS Laboratory Results Hemoglobin A1c Test 01/27/18 03:28 Range/Units Estimated Average Glucose 160 mg/dl Hemoglobin A1c 7.2 H 4.5-5.6 % Medical Emergencies . Who to Call and When: Medical Emergencies: If at any time you feel your situation is an emergency, please call 911 immediately. . Non-Emergent Contact Non-Emergency issues call your: Primary Care Provider . . "Provider Documentation" section prepared by Carroll Liriano. . Core Measure Problem Core Measures: None
[2018-02-04] MEDS ORDERED: POTASSIUM CHLORIDE 10 MEQ TABCR PO ONE (11:45)
[2018-02-04 12:20] VITALS: BP 100/60; PULSE 67; TEMP 36.8; O2SAT 91
== END 2018-02-04 14:55 | DRG 183 ==
LOC: EDBD 10:49 → C.EDB 10:50 → C.2T 15:04 → EDBEDREQ 15:33 → ENRESERV 15:35 → C.2T 16:06 → UNDOADMOB 16:06 → OBSVTOIN 01-29 10:06 → ENRESERV 01-31 17:18 → C.MS2W 01-31 17:35
PROVIDERS: ADMIT Family Medicine; ATTEND Internal Medicine
DX: S22.42XA Multiple fractures of ribs, left side, initial encounter for closed fracture (principal); N18.6 End stage renal disease; I13.2 Hypertensive heart and chronic kidney disease with heart failure and with stage 5 chronic kidney disease, or end stage renal disease; I50.22 Chronic systolic (congestive) heart failure; I42.9 Cardiomyopathy, unspecified; I48.91 Unspecified atrial fibrillation; K21.9 Gastro-esophageal reflux disease without esophagitis; E78.5 Hyperlipidemia, unspecified; I27.20 Pulmonary hypertension, unspecified; E11.40 Type 2 diabetes mellitus with diabetic neuropathy, unspecified; G47.33 Obstructive sleep apnea (adult) (pediatric); D69.6 Thrombocytopenia, unspecified; Z79.4 Long term (current) use of insulin; Z79.82 Long term (current) use of aspirin; Z79.899 Other long term (current) drug therapy; Z87.891 Personal history of nicotine dependence; Z91.041 Radiographic dye allergy status; Z99.2 Dependence on renal dialysis; Z95.0 Presence of cardiac pacemaker; Z83.3 Family history of diabetes mellitus; X58.XXXA Exposure to other specified factors, initial encounter

== ENCOUNTER 2018-11-30 15:46 | Inpatient (IN) ==
[2018-11-30] MEDS ORDERED: ALBUT/IPRATROP 3MG/0.5MG NEB 3 ML VIAL NEB STA (16:17)
--- NOTE | 2018-11-30 17:01 | XRay Report ---
XR chest 1V portable HISTORY: 73 years-old Female weakness acute weakness COMPARISON: Chest radiograph 09/03/2018 TECHNIQUE: Portable AP view of the chest FINDINGS: Cardiac silhouette is enlarged, unchanged. Calcification the thoracic aortic arch. Right subclavian p acer appears unchanged. Decreased pulmonary vascular congestion. No pneumothorax, pleural effusion or overt pulmonary edema. Blunting of the left cost phrenic angles suggests atelectasis. Minimal linear atelectasis about the lateral left midlung. Degenerative changes of the shoulders and spine. IMPRESSION: Cardiomegaly without acute process. The above report was generated using voice recognition software. It may contain grammatical, syntax o r spelling errors. Electronically signed by: Charly Carter M.D. 11/30/2018 4:59 PM
[2018-11-30 17:11] LABS: Mean Corpuscular Hgb Conc 33.8 g/dL (32-36); Nucleated RBC # (auto) 0.17 K/uL (0-0); Nucleated RBC % (auto) 1.4 %
--- NOTE | 2018-11-30 17:13 | Emergency Department Note ---
Entered by No Muñoz acting as a scribe for Cresencio Anguiano MD ED Provider Note CHIEF COMPLAINT: Congestion HISTORY OF PRESENT ILLNESS: The patient is a 73 year old female who presents to the Emergency Room with complaints of SOB and worsening congestion that started a week ago. The patient reports she went to the [facility] last week due to a potassium level of 7.9. She reports the nurse was mistaken about the potassium level but the patient was still kept in the hospital for a week due to congestion and CHF. The patient states dialysis was done to treat CHF. The patients family member states she was placed on antibiotics for MRSA of her foot and congestion. She states she got the MRSA from the incision done before her ankle surgery. The patient reports she was discharged from the [facility] 2 days ago. She reports she was in dialysis this morning and couldnt breathe and was told to come here. The patient states she has been having intermittent problems since the end of August. She reports she has history of COPD, diabetes, CHF and renal failure. The patient notes she has been having chest pain for 3 weeks. She reports she had diarrhea every once in a while. The patient states she wears oxygen at home. The patients family member reports the patient has been confused lately. Pt denies LOC, headache, fevers, chills, diaphoresis, visual changes, neck pain , chest pain, nausea, vomiting, abdominal pain, back pain, melena, hematochezia , urinary symptoms, numbness, weakness, lymphadenopathy, rash, cough or other complaints. REVIEW OF SYSTEMS: See HPI for pertinent positives and negatives. A total of ten systems were reviewed and were otherwise negative. PMHx/PSHx: Hypothyroidism Depression Chest pain Visual disturbance Type 2 diabetes TIA GERD Pulmonary hypertension DVT SOCIAL HISTORY: Patient lives at home. PHYSICAL EXAM: GENERAL: Awake, alert, well-appearing, in no distress HENT: Normocephalic, atraumatic. Oropharynx unremarkable except for mild thrush. EYES: Normal conjunctiva. Sclera non-icteric. NECK: Inspection normal. Non-tender. Supple. No nuchal rigidity. FROM. No masses. RESPIRATORY: Scattered wheezes. No rales. Increased work of breathing. CARDIAC: Normal rate. Irregular rhythm. No murmurs. No rubs. Extremities warm and well perfused. Pulses equal. No JVD. GI: Soft, non-distended. No tenderness to palpation. No rebound or guarding. No masses. RECTAL: Deferred. MUSCULOSKELETAL: Atraumatic. Chest examination reveals no tenderness. No joint edema. LOWER EXTREMITIES: Calves are equal size bilaterally and non-tender. 1+ edema. No discoloration. NEURO: Normal sensorium. No sensory or motor deficits noted. SKIN: No rash or jaundice noted. EMERGENCY DEPARTMENT COURSE: 1606: Past medical records reviewed. The patient was evaluated in room B2, and a complete history and physical examination were performed. 1805: I checked on the patient and [facility] 1807: I reviewed the patient's case with Kassandra Spear. The patient will be [facility] MEDICAL DECISION MAKING: Triage Nursing notes reviewed. The patient's presentation and history were concerning for SOB. Etiologies such as pneumonia, reactive airway disease, CHF, cardiac ischemia, pulmonary embolism, pneumothorax, COPD, musculoskeletal, infections, gastrointestinal, as well as others were entertained. The patient was evaluated. Blood work, blood cultures, chest x-ray and ECG were ordered. The patient was wheezing on examination and was treated with a DuoNeb. She did feel better after the DuoNeb treatment. The patient's blood work revealed a slight leukocytosis of 12,000. She had elevated LFTs. Patient has an elevated creatinine consistent with her end-stage renal disease. Her troponin was elevated. Compared to prior this was approximately a 4-5x her previous baseline. Due to the shortness of breath and elevated troponin she will need further management in the hospital. Consultation was made with internal medicine. Further management. IMPRESSION: Shortness of breath Elevated troponin Leukocytosis CHF PLAN: Admitted. The scribe's documentation has been prepared under my direction and personally reviewed by me in its entirety. I confirm that the note above accurately reflects all work, treatment, procedures, and medical decision making performed by me. Impression & Plan Shortness of breath, Elevated troponin, Leukocytosis, CHF (congestive heart failure) Past Med/Surg History Medical History History of fracture of left ankle 08/2018 ORIF trimalleolar fx Depression (Chronic) Left midfoot ulcer (Acute) Type 2 diabetes mellitus with diabetic neuropathy (Chronic) Acquired claw toe of right foot (Chronic) Acquired claw toe of left foot (Chronic) Ulcer of right midfoot (Acute) Diabetic retinopathy (Chronic) Paroxysmal atrial fibrillation (Chronic) TIA (transient ischemic attack) (Chronic) GERD (gastroesophageal reflux disease) (Chronic) Pulmonary hypertension (Chronic) Pulmonary embolism (Resolved) DM type 2 (diabetes mellitus, type 2) (Chronic) Chronic diastolic CHF (congestive heart failure) (Chronic) Nonischemic cardiomyopathy (Chronic) [place] treated with BiPAP (Chronic) Chronic respiratory failure with hypoxia (Chronic) Symptomatic bradycardia (Chronic) Pacemaker (Chronic) Hypertension (Chronic) Spinal stenosis (Chronic) Osteoarthritis (Chronic) Malignant melanoma (Chronic) Thrombocytopenia (Chronic) 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 Pt has been off coumadin since and not anticoagulation candidate ESRD (end stage renal disease) on dialysis (Chronic) Mitral regurgitation Surgical History H/O total hysterectomy (Chronic) S/P cholecystectomy (Chronic) S/P IVC filter (Chronic) AV fistula Pacemaker Family History Other Diabetes Social History marital status: Current Living Situation: Family Current Living Situation Comment: reports she lives in an apt, has caregivers Mon-Sat Feels Safe at Home: Yes Safety Concerns: Feels Safe At This Time Smoking Status: Former smoker Tobacco Type: cigarettes Hx Alcohol Use: No Hx Substance Use: No Beliefs That Will Affect Care: None Preferred Language: Turkish Results & Data Vital Signs Vital Signs - 24 hr 11/30/18 15:56 11/30/18 16:31 11/30/18 16:36 Temperature 36.6 C Temperature Source Oral Sepsis Recent Fever Within 48 Hours No Sepsis New/Unexplained Change in Mental Status No Sepsis Action Taken by Nursing No Action Required Pulse Rate 83 74 82 Pulse Rate [Apical] Respiratory Rate 24 18 11 L Respiratory Effort / Characteristics Respiratory Depth Respiratory Pattern Regular Blood Pressure 133/52 L 99/53 L Blood Pressure [Left Arm] Blood Pressure [Right Arm] Blood Pressure Mean 79 68 Blood Pressure Mean [Left Arm] Blood Pressure Mean [Right Arm] Blood Pressure Position Sitting Blood Pressure Position [Right Arm] Pulse Oximetry 92 95 100 Oxygen Delivery Method Room Air Oxygen Flow Rate 11/30/18 17:00 11/30/18 17:16 11/30/18 17:30 Temperature Temperature Source Sepsis Recent Fever Within 48 Hours Sepsis New/Unexplained Change in Mental Status Sepsis Action Taken by Nursing Pulse Rate 77 Pulse Rate [Apical] Respiratory Rate 22 18 Respiratory Effort / Characteristics Respiratory Depth Respiratory Pattern Blood Pressure 95/46 L Blood Pressure [Left Arm] Blood Pressure [Right Arm] Blood Pressure Mean 62 Blood Pressure Mean [Left Arm] Blood Pressure Mean [Right Arm] Blood Pressure Position Blood Pressure Position [Right Arm] Pulse Oximetry 97 98 99 Oxygen Delivery Method Oxygen Flow Rate 11/30/18 17:31 11/30/18 18:00 11/30/18 18:01 Temperature Temperature Source Sepsis Recent Fever Within 48 Hours Sepsis New/Unexplained Change in Mental Status Sepsis Action Taken by Nursing Pulse Rate 86 81 79 Pulse Rate [Apical] Respiratory Rate 16 21 16 Respiratory Effort / Characteristics Respiratory Depth Respiratory Pattern Blood Pressure 109/52 L 100/42 L Blood Pressure [Left Arm] Blood Pressure [Right Arm] Blood Pressure Mean 71 61 Blood Pressure Mean [Left Arm] Blood Pressure Mean [Right Arm] Blood Pressure Position Blood Pressure Position [Right Arm] Pulse Oximetry 100 100 99 Oxygen Delivery Method Oxygen Flow Rate 11/30/18 18:30 11/30/18 18:31 11/30/18 19:02 Temperature Temperature Source Sepsis Recent Fever Within 48 Hours Sepsis New/Unexplained Change in Mental Status Sepsis Action Taken by Nursing Pulse Rate 80 80 Pulse Rate [Apical] 74 Respiratory Rate 18 19 20 Respiratory Effort / Characteristics Respiratory Depth Respiratory Pattern Blood Pressure 100/43 L Blood Pressure [Left Arm] Blood Pressure [Right Arm] 106/47 L Blood Pressure Mean 62 Blood Pressure Mean [Left Arm] Blood Pressure Mean [Right Arm] 66 Blood Pressure Position Blood Pressure Position [Right Arm] Pulse Oximetry 100 100 98 Oxygen Delivery Method Nasal Cannula Oxygen Flow Rate 3 11/30/18 20:30 11/30/18 20:43 11/30/18 21:39 Temperature 36.7 C Temperature Source Oral Sepsis Recent Fever Within 48 Hours Sepsis New/Unexplained Change in Mental Status Sepsis Action Taken by Nursing Pulse Rate 70 Pulse Rate [Apical] 80 Respiratory Rate 20 18 Respiratory Effort / Characteristics Non-Labored Spontaneous SOB on Exertion Respiratory Depth Normal Respiratory Pattern Regular Blood Pressure 97/50 L Blood Pressure [Left Arm] Blood Pressure [Right Arm] 110/70 Blood Pressure Mean Blood Pressure Mean [Left Arm] Blood Pressure Mean [Right Arm] 83 Blood Pressure Position Blood Pressure Position [Right Arm] Lying Pulse Oximetry 98 98 Oxygen Delivery Method Nasal Cannula Nasal Cannula Nasal Cannula Oxygen Flow Rate 5 3 4 11/30/18 23:45 Temperature 36.7 C Temperature Source Oral Sepsis Recent Fever Within 48 Hours Sepsis New/Unexplained Change in Mental Status Sepsis Action Taken by Nursing Pulse Rate 72 Pulse Rate [Apical] 83 Respiratory Rate 16 Respiratory Effort / Characteristics Respiratory Depth Respiratory Pattern Blood Pressure Blood Pressure [Left Arm] 112/60 Blood Pressure [Right Arm] Blood Pressure Mean Blood Pressure Mean [Left Arm] 77 Blood Pressure Mean [Right Arm] Blood Pressure Position Blood Pressure Position [Right Arm] Pulse Oximetry 98 Oxygen Delivery Method Oxygen Flow Rate 4 Home Medications Current Medication List: was personally reviewed by me Laboratory Data Attestation: I reviewed the patient's lab results. Result diagrams: 11/30/18 16:49 11/30/18 16:49 Lab Results 11/30/18 11/30/18 11/30/18 Range/Units 16:20 16:49 16:49 WBC 12.10 H (4.8-10.8) K/uL RBC 3.69 L (4.2-5.4) M/uL Hgb 11.6 L (12.0-16.0) g/dL Hct 34.3 L (37-47) % MCV 93.0 (80-100) fL MCH 31.4 (25-34) pg MCHC 33.8 (32-36) g/dL RDW Std Deviation 57.6 H (36.4-46.3) fL RDW Coeff of Anatoly 17.5 H (11.5-14.5) % Plt Count 134 (130-400) K/uL MPV 12.5 H (7.4-10.4) fL Immature Gran % (Auto) 1.0 % Neut % (Auto) 92.9 % Lymph % (Auto) 3.0 % Webb % (Auto) 3.0 % Eos % (Auto) 0.0 % Baso % (Auto) 0.1 % Immature Gran # (Auto) 0.12 H (0.00-0.02) K/uL Neut # (Auto) 11.25 H (1.4-6.5) K/uL Lymph # (Auto) 0.36 L (1.2-3.4) K/uL Webb # (Auto) 0.36 (0.11-0.59) K/uL Eos # (Auto) 0.00 (0-0.5) K/uL Baso # (Auto) 0.01 (0-0.2) K/uL Absolute Nucleated RBC 0.17 H (0-0) K/uL Nucleated RBC % (auto) 1.4 % Platelet Estimate Decreased (Normal) Polychromasia 1+ Basophilic Stippling Occasional Target Cells 1+ Sodium 133 L (136-145) mmol/L Potassium 4.4 (3.5-5.1) mmol/L Chloride 92 L (98-107) mmol/L Carbon Dioxide 32 (21-32) mmol/L Anion Gap 9.0 (3-11) BUN 36 H (7-18) mg/dl Creatinine 3.19 H (0.6-1.2) mg/dl Est Cr Clr Drug Dosing Not Reportable Est GFR ( Amer) 15.7 Est GFR (Non-Af Amer) 13.5 BUN/Creatinine Ratio 11.3 (10-20) Glucose 224 H (70-99) mg/dl POC Glucose (70-99) Lactate (0.4-2.0) mmol/L Calcium 8.6 (8.5-10.1) mg/dl Magnesium 2.1 (1.8-2.4) mg/dl Total Bilirubin 1.8 H (0.2-1) mg/dl Direct Bilirubin (0-0.2) mg/dl AST 99 H (15-37) U/L ALT 77 (12-78) U/L Alkaline Phosphatase 396 H (45-117) U/L Troponin I 0.204 H* (0-0.045) ng/ml NT-Pro-B Natriuret Pep (0-900) pg/ml Total Protein 7.5 (6.4-8.2) gm/dl Albumin 3.5 (3.4-5.0) gm/dl Globulin 4.0 (2.5-4.0) gm/dl Albumin/Globulin Ratio 0.9 (0.9-2) Procalcitonin (0-0.5) ng/ml TSH 2.750 (0.300-4.500) uIu/ml Specimen Hemolysis Nasal Screen MRSA (PCR) (Negative) Stool Occult Bld Scrn (Negative) Influenza Type A Ag Neg for Influ A (Neg) Influenza Type B Ag Neg for Influ B (Neg) 11/30/18 11/30/18 11/30/18 Range/Units 16:49 21:23 21:24 WBC (4.8-10.8) K/uL RBC (4.2-5.4) M/uL Hgb (12.0-16.0) g/dL Hct (37-47) % MCV (80-100) fL MCH (25-34) pg MCHC (32-36) g/dL RDW Std Deviation (36.4-46.3) fL RDW Coeff of Anatoly (11.5-14.5) % Plt Count (130-400) K/uL MPV (7.4-10.4) fL Immature Gran % (Auto) % Neut % (Auto) % Lymph % (Auto) % Webb % (Auto) % Eos % (Auto) % Baso % (Auto) % Immature Gran # (Auto) (0.00-0.02) K/uL Neut # (Auto) (1.4-6.5) K/uL Lymph # (Auto) (1.2-3.4) K/uL Webb # (Auto) (0.11-0.59) K/uL Eos # (Auto) (0-0.5) K/uL Baso # (Auto) (0-0.2) K/uL Absolute Nucleated RBC (0-0) K/uL Nucleated RBC % (auto) % Platelet Estimate (Normal) Polychromasia Basophilic Stippling Target Cells Sodium (136-145) mmol/L Potassium (3.5-5.1) mmol/L Chloride (98-107) mmol/L Carbon Dioxide (21-32) mmol/L Anion Gap (3-11) BUN (7-18) mg/dl Creatinine (0.6-1.2) mg/dl Est Cr Clr Drug Dosing Est GFR ( Amer) Est GFR (Non-Af Amer) BUN/Creatinine Ratio (10-20) Glucose (70-99) mg/dl POC Glucose (70-99) Lactate 2.8 H* (0.4-2.0) mmol/L Calcium (8.5-10.1) mg/dl Magnesium (1.8-2.4) mg/dl Total Bilirubin (0.2-1) mg/dl Direct Bilirubin 1.2 H (0-0.2) mg/dl AST (15-37) U/L ALT (12-78) U/L Alkaline Phosphatase (45-117) U/L Troponin I 0.207 H* (0-0.045) ng/ml NT-Pro-B Natriuret Pep > 43648 H (0-900) pg/ml Total Protein (6.4-8.2) gm/dl Albumin (3.4-5.0) gm/dl Globulin (2.5-4.0) gm/dl Albumin/Globulin Ratio (0.9-2) Procalcitonin 1.94 H (0-0.5) ng/ml TSH (0.300-4.500) uIu/ml Specimen Hemolysis Nasal Screen MRSA (PCR) (Negative) Stool Occult Bld Scrn (Negative) Influenza Type A Ag (Neg) Influenza Type B Ag (Neg) 11/30/18 11/30/18 11/30/18 Range/Units 21:45 22:10 23:21 WBC (4.8-10.8) K/uL RBC (4.2-5.4) M/uL Hgb (12.0-16.0) g/dL Hct (37-47) % MCV (80-100) fL MCH (25-34) pg MCHC (32-36) g/dL RDW Std Deviation (36.4-46.3) fL RDW Coeff of Anatoly (11.5-14.5) % Plt Count (130-400) K/uL MPV (7.4-10.4) fL Immature Gran % (Auto) % Neut % (Auto) % Lymph % (Auto) % Webb % (Auto) % Eos % (Auto) % Baso % (Auto) % Immature Gran # (Auto) (0.00-0.02) K/uL Neut # (Auto) (1.4-6.5) K/uL Lymph # (Auto) (1.2-3.4) K/uL Webb # (Auto) (0.11-0.59) K/uL Eos # (Auto) (0-0.5) K/uL Baso # (Auto) (0-0.2) K/uL Absolute Nucleated RBC (0-0) K/uL Nucleated RBC % (auto) % Platelet Estimate (Normal) Polychromasia Basophilic Stippling Target Cells Sodium (136-145) mmol/L Potassium (3.5-5.1) mmol/L Chloride (98-107) mmol/L Carbon Dioxide (21-32) mmol/L Anion Gap (3-11) BUN (7-18) mg/dl Creatinine (0.6-1.2) mg/dl Est Cr Clr Drug Dosing Est GFR ( Amer) Est GFR (Non-Af Amer) BUN/Creatinine Ratio (10-20) Glucose (70-99) mg/dl POC Glucose 249 H (70-99) Lactate (0.4-2.0) mmol/L Calcium (8.5-10.1) mg/dl Magnesium (1.8-2.4) mg/dl Total Bilirubin (0.2-1) mg/dl Direct Bilirubin (0-0.2) mg/dl AST (15-37) U/L ALT (12-78) U/L Alkaline Phosphatase (45-117) U/L Troponin I (0-0.045) ng/ml NT-Pro-B Natriuret Pep (0-900) pg/ml Total Protein (6.4-8.2) gm/dl Albumin (3.4-5.0) gm/dl Globulin (2.5-4.0) gm/dl Albumin/Globulin Ratio (0.9-2) Procalcitonin (0-0.5) ng/ml TSH (0.300-4.500) uIu/ml Specimen Hemolysis Nasal Screen MRSA (PCR) Negative (Negative) Stool Occult Bld Scrn Positive H (Negative) Influenza Type A Ag (Neg) Influenza Type B Ag (Neg) Administered Medications Atorvastatin Calcium (Lipitor) 40 mg PO HS JOHANA Stop: 12/30/18 20:59 Last Admin: 11/30/18 23:12 Dose: 40 mg Clonazepam (Klonopin) 0.5 mg PO HS JOHANA Stop: 12/30/18 20:59 Last Admin: 11/30/18 23:13 Dose: 0.5 mg Gabapentin (Neurontin) 200 mg PO [facility] JOHANA Stop: 02/25/19 20:59 Last Admin: 11/30/18 23:12 Dose: 200 mg Vancomycin HCl 1,500 mg/ (Sodium Chloride) 530 mls @ 200 mls/hr IV TODAY@2230 JOHANA Stop: 12/01/18 01:08 Last Admin: 11/30/18 23:04 Dose: 200 mls/hr Insulin Aspart (Novolog Flexpen) 0 units SC ACHS JOHANA Stop: 12/30/18 20:59 Last Admin: 11/30/18 23:23 Dose: 2 units Insulin Glargine (Lantus Solostar Pen) 5 units SC Q12H JOHANA Stop: 12/30/18 20:59 Last Admin: 11/30/18 23:13 Dose: 5 units Miscellaneous (Fentanyl Patch Check Placement) 1 ea N/A QS JOHANA Stop: 12/30/18 00:00 Last Admin: 11/30/18 23:14 Dose: 1 ea Miscellaneous (Fentanyl Patch Check Placement) 1 ea N/A QS JOHANA Stop: 12/30/18 00:00 Last Admin: 11/30/18 23:14 Dose: 1 ea Discontinued Medications Albuterol (Duoneb) 3 ml NEB NOW STA Stop: 11/30/18 16:18 Last Admin: 11/30/18 16:36 Dose: 3 ml Piperacillin Sod/Tazobactam (Sod 4.5 gm/ Dextrose) 120 mls @ 230 mls/hr IV TODAY@2230 [facility] Stop: 11/30/18 23:02 Last Admin: 11/30/18 23:04 Dose: 230 mls/hr Imaging Data Radiologist's Impression: Radiology results as stated below per my review and the radiologist's interpretation: XR chest 1V portable HISTORY: 73 years-old Female weakness acute weakness COMPARISON: Chest radiograph 09/03/2018 TECHNIQUE: Portable AP view of the chest FINDINGS: Cardiac silhouette is enlarged, unchanged. Calcification the thoracic aortic arch. Right subclavian pacer appears unchanged. Decreased pulmonary vascular congestion. No pneumothorax, pleural effusion or overt pulmonary edema. Blunting of the left cost phrenic angles suggests atelectasis. Minimal linear atelectasis about the lateral left midlung. Degenerative changes of the shoulders and spine. IMPRESSION: Cardiomegaly without acute process. The above report was generated using voice recognition software. It may contain grammatical, syntax or spelling errors. Electronically signed by: Charly Carter M.D. 11/30/2018 4:59 PM ECG Data Attestation: I personally reviewed and interpreted this ECG as follows: Indication: SOB/dyspnea Rate (beats per minute): 83 Rhythm: other (Paced rhythm) Findings: + other (premature supraventricular complexes) and + T-wave inversion (lateral) Blood Pressure Blood Pressure Findings: Low blood pressure Blood Pressure Disposition: further management by hospitalist Discharge Plan Visit Data *Final* Discharge Date/Time: 11/30/18 20:43 Chief Complaint: Congestion Stated Complaint: CONGESTION,COUGH ED Provider: Cresencio Anguiano Discharge Problem: Shortness of breath, Elevated troponin, Leukocytosis, CHF (congestive heart failure) Patient Disposition: Admitted As Inpatient Discharge Instructions Interventions: ED Discharge Assessment Last Done: 11/30/18 20:43 The scribe's documentation has been prepared under my direction and personally reviewed by me in its entirety. I confirm that the note above accurately reflects all work, treatment, procedures, and medical decision making performed by me.
[2018-11-30 17:21] LABS: Hematocrit (blood only) 34.3 % (37-47); Hemoglobin 11.6 g/dL (12.0-16.0); RDW Coefficient of Variation 17.5 % (11.5-14.5); RDW Standard Deviation 57.6 fL (36.4-46.3); Red Blood Count 3.69 M/uL (4.2-5.4)
[2018-11-30 17:32] LABS: Alanine Aminotransferase 77 U/L (12-78); Albumin Level 3.5 gm/dl (3.4-5.0); Aspartate Aminotransferase 99 U/L (15-37); BUN Creatinine Ratio 11.3 (10-20); Blood Urea Nitrogen 36 mg/dl (7-18); Calcium 8.6 mg/dl (8.5-10.1); Carbon Dioxide 32 mmol/L (21-32); Chloride 92 mmol/L (98-107); Est GFR (African American) 15.7; Est GFR (Non-African American) 13.5; Glucose 224 mg/dl (70-99); Magnesium 2.1 mg/dl (1.8-2.4); Potassium 4.4 mmol/L (3.5-5.1); Sodium 133 mmol/L (136-145)
[2018-11-30 17:44] LABS: Albumin Globulin Ratio 0.9 (0.9-2); Alkaline Phosphatase 396 U/L (45-117); Bilirubin,Total 1.8 mg/dl (0.2-1); Total Protein 7.5 gm/dl (6.4-8.2); Troponin I 0.204 ng/ml (0-0.045)
[2018-11-30 17:55] LABS: Mean Platelet Volume 12.5 fL (7.4-10.4); Platelet Count 134 K/uL (130-400)
[2018-11-30 17:56] LABS: Basophilic Stippling Occasional; Basophils # (auto) 0.01 K/uL (0-0.2); Basophils % (auto) 0.1 %; Immature Granulocytes # (auto) 0.12 K/uL (0.00-0.02); Lymphocytes # (auto) 0.36 K/uL (1.2-3.4); Monocytes # (auto) 0.36 K/uL (0.11-0.59); Neutrophils # (auto) 11.25 K/uL (1.4-6.5); Neutrophils % (auto) 92.9 %; Polychromasia 1+; Target Cells 1+
--- NOTE | 2018-11-30 20:02 | History & Physical Report ---
Date of Service November 30, 2018 Assessment & Plan (1) Shortness of breath: This is a 73 y/o F with PMH ESRD on HD (rachide, inez, sat), IDDM, PAF, hx of TIA, nonischemic cardiomyopathy, chronic diastolic CHF, pulmonary hypertension, obesity hypoventilation syndrome, EVERTON on bipap, hx of symptomatic bradycardia s /p pacemaker, H/O PE s/p IVC filter, hypothyroidism, depression who presents to [facility] ED secondary to shortness of breath and chest pain x 1 day. In ED troponin was noted to be elevated at 0.204, which is elevated from baseline of 0.040.06, leukocytosis 12.1, hemoglobin hematocrit stable at 11.6 and 34.3, BUN 36, creatinine 3.19, glucose 224. Chest x-ray revealed cardiomegaly without acute cardiopulmonary disease. Her influenza swab was negative. EKG revealed normal sinus rhythm without ischemic changes. Patient did receive full treatment of hemodialysis today. While in ED she received nebulizer treatment which improved symptoms of shortness of breath. Of note she was never hypoxic, however has oxygen at home to use with exertion; therefore, placed on O2 in ED During my examination she did have a hoarse cough with bibasilar crackles bilaterally. Patient recently discharged from [facility] on 11/28 with prednisone taper and azithromycin. Given elevated troponin from baseline and symptoms consistent with shortness of breath and earlier chest pain with admit patient to telemetry -Cycle troponins -consult cardiology -Check BNP, pro-calcitonin, lactic acid to rule out CHF versus infectious etiology -MRSA Nasal/Wound swab -consult wound nurse for LLE wound -Xopenex/Alb neb tx q6 hr -pulmonary toilet with nebs, incentive spirometry, guaifenesin -continue prednisone taper and complete Zpack on 12/04 for probably bronchitis (2) Elevated troponin: -plan as above (3) Chest pain: -plan as above (4) Wound of left ankle: -s/p ORIF to L ankle 08/2018 -recently saw Ben Young PA-C in follow up who feels ankle is healing well -she is WBAT w/o need of assist device -Per BENIGNO Young note while in nursing facility she tested +for MRSA to wound therefore treated with course of bactrim due to concern for cellulitis; however at visit on 11/22/18 he felt Ankle/wound was healing well. (5) Thrush: -nystatin swish and swallow QID (6) Elevated LFTs: - T bili 1.8, AST 99, ALT77, Alk Phos 396, check direct bili -while in [facility] LFTs mildly elevated, per family U/S of liver was done, no further work up as outpatient -will need to obtain records from [place] for further work up -back in 08/2018 LFT WNL (7) CHF (congestive heart failure): -most recent echo 09/2018 EF 55-60%, diastolic dysfunction, RA dilated, pulm HTN -check BNP -does not appear to be volume overloaded at this time, given HD today -continue ASA, Statin -heart healthy, low NA diet, strict I and O, daily weights (8) ESRD (end stage renal disease) on dialysis: -on HD //Sun -will consult nephrology -received full HD treatment today Areli Bradford (9) Type 2 diabetes mellitus with diabetic neuropathy: -Last A1C 6.4 09/16/18 -repeat A1C -Lantus/Novolog per protocol, titrate accordingly (10) Paroxysmal atrial fibrillation: -pacemaker in place -not on any oral anticoagulation or rate control medications (11) Hypotension: -continue midodrine (12) GERD (gastroesophageal reflux disease): -prn ranitidine -currently asymptomatic (13) EVERTON treated with BiPAP: -bipap at HS (14) Thrombocytopenia: -Plt ct 134, monitor closely -on heparin Q12hr for vte prophylaxis (15) Hypothyroidism: -continue levothyroxine -TSH 2.95 today (16) QT prolongation: -avoid QT prolonging medications -add ativan prn for n/v (17) DVT prophylaxis: -heparin 5,000 units SQ q12 hr -avoid SCD/TEDs given wound L ankle Disposition: to be determined, recently residing at [facility], consult case management Follow up: PCP Dr. Mo upon discharge Pt was seen in collaboration with Dr. garvin, please see addendum Starting 12/01/18 patient will be followed by Dr. Pittman History of Present Illness Chief Complaint: SOB/Chest pain x 1 day. Primary Care Provider: Subhash Mo MD This is a 73 y/o F with PMH ESRD on HD (tue, thur, sat), IDDM, PAF, hx of TIA, nonischemic cardiomyopathy, chronic diastolic CHF, pulmonary hypertension, obesity hypoventilation syndrome, EVERTON on bipap, hx of symptomatic bradycardia s /p pacemaker, H/O PE s/p IVC filter, hypothyroidism, depression who presents to [facility] ED secondary to shortness of breath and chest pain x 1 day. Daughters at bedside. Patient underwent HD today at [facility] in [place]. During HD she was experiencing substernal chest discomfort, nonradiating, with sob. Chest pain lasted approx 2-3 hours, relieved with out intervention. Tried O2 while at HD w/o relief of CP, but improvement of SOB. Further complains of increased abdominal girth. Has been coughing for approx 2 weeks, productive, initially clear, now purulent past 2-3 days, and having mouth pain. Unfortunately patient recently admitted to [facility] on 11/24/18 and discharged on 11/28/18 secondary to CHF exac. At that time troponin 0.09. Per daughter patient was diuresed. Also treated with IV vanco while in hospital for L ankle cellulitis. She was discharged home on prednisone taper and Zpack. She has completed 2 doses of antibiotic and prednisone. Unfortunately pt suffered left trimalleolar ankle fracture and was hospitalized in August 2018 and underwent ORIF. Unfortunately she has been having difficulty with wound healing to left lateral ankle. Per family recent history of MRSA in wound and treated with antibiotic course of Bactrim as well as vanco in hospital. She has been residing at [facility] in [place] given comorbidites s/p fall and L ankle fracture. Currently patient denies f/c/s, dizziness, lightheaded, syncope, chest pain, sob at rest, hemoptysis, n/v/d. She is anuric from ESRD. She did receive full HD tx today and states HD improved her breathing. Allergies Allergy/AdvReac Type Severity Reaction Status Date / Time Iodinated Contrast- Oral and Allergy Mild "Contrast Verified 09/04/18 09:07 IV Dye Media" -- unknown rxn adhesive Allergy Unknown "Tape" -- Verified 09/04/18 09:07 unknown rxn morphine Allergy Unknown UNKNOWN Verified 09/04/18 09:07 warfarin Allergy Unknown HYPERSENSIT Verified 09/04/18 09:07 IVITY/BLEED ING tomato AdvReac Intermediate GI SYMPTOMS Verified 09/04/18 09:07 Home Medications Home Medications Medication Instructions Recorded Confirmed Type amiodarone 200 mg PO QAM 09/03/18 11/30/18 History atorvastatin 40 mg PO HS 09/03/18 11/30/18 History calcium acetate 667 mg PO DAILY 09/03/18 11/30/18 History clonazepam 0.5 mg PO HS 09/03/18 11/30/18 History gabapentin 200 mg PO AMHS 09/03/18 11/30/18 History levothyroxine 75 mcg PO QAM 09/03/18 11/30/18 History multivitamin 1 tab PO QAM 09/03/18 11/30/18 History nitroglycerin [Nitrostat] 0.4 mg SUBLINGUAL DIRECTED PRN 09/03/18 11/30/18 History sertraline 100 mg PO HS 09/03/18 11/30/18 History acetaminophen 650 mg PO Q6H PRN 11/30/18 11/30/18 History albuterol sulfate [Ventolin HFA] 2 puff INHALATION Q4H PRN 11/30/18 11/30/18 History aspirin 81 mg PO QAM 11/30/18 11/30/18 History azithromycin 500 mg PO QAM 11/30/18 11/30/18 History bisacodyl 10 mg PO DIRECTED PRN 11/30/18 11/30/18 History clonazepam See Label Instructions .ROUTE 11/30/18 11/30/18 History .COMPLEX docusate sodium 100 mg PO Q12H PRN 11/30/18 11/30/18 History fentanyl 1 patch TRANSDERMAL Q72H 11/30/18 11/30/18 History glycerin (adult) 1 supp CA DAILY PRN 11/30/18 11/30/18 History guaifenesin 400 mg PO Q4H PRN 11/30/18 11/30/18 History hydrocodone-acetaminophen [[place]] 1 tab PO Q6H PRN 11/30/18 11/30/18 History midodrine 20 mg PO 3XWK 11/30/18 11/30/18 History midodrine See Label Instructions .ROUTE 11/30/18 11/30/18 History .COMPLEX ondansetron HCl 4 mg PO Q6H PRN 11/30/18 11/30/18 History polyethylene glycol 3350 17 g PO DAILY PRN 11/30/18 11/30/18 History prednisone See Label Instructions .ROUTE 11/30/18 11/30/18 History .COMPLEX ranitidine HCl 75 mg PO QAM 11/30/18 11/30/18 History Past Med/Surg History Medical History History of fracture of left ankle 08/2018 ORIF trimalleolar fx Depression (Chronic) Left midfoot ulcer (Acute) Type 2 diabetes mellitus with diabetic neuropathy (Chronic) Acquired claw toe of right foot (Chronic) Acquired claw toe of left foot (Chronic) Ulcer of right midfoot (Acute) Diabetic retinopathy (Chronic) Paroxysmal atrial fibrillation (Chronic) TIA (transient ischemic attack) (Chronic) GERD (gastroesophageal reflux disease) (Chronic) Pulmonary hypertension (Chronic) Pulmonary embolism (Resolved) DM type 2 (diabetes mellitus, type 2) (Chronic) Chronic diastolic CHF (congestive heart failure) (Chronic) Nonischemic cardiomyopathy (Chronic) EVERTON treated with BiPAP (Chronic) Chronic respiratory failure with hypoxia (Chronic) Symptomatic bradycardia (Chronic) Pacemaker (Chronic) Hypertension (Chronic) Spinal stenosis (Chronic) Osteoarthritis (Chronic) Malignant melanoma (Chronic) Thrombocytopenia (Chronic) 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 Pt has been off coumadin since and not anticoagulation candidate ESRD (end stage renal disease) on dialysis (Chronic) Mitral regurgitation Surgical History H/O total hysterectomy (Chronic) S/P cholecystectomy (Chronic) S/P IVC filter (Chronic) AV fistula Pacemaker Family History Other Diabetes Social History marital status: Current Living Situation: Family Current Living Situation Comment: reports she lives in an apt, has caregivers Mon-Sat Feels Safe at Home: Yes Safety Concerns: Feels Safe At This Time Smoking Status: Former smoker Tobacco Type: cigarettes Hx Alcohol Use: No Hx Substance Use: No Beliefs That Will Affect Care: None Preferred Language: Yi Review of Systems All systems reviewed & are unremarkable except as noted in HPI & below Physical Exam 2 Vital Signs (Past 24 Hours): Last Vital Signs Temp 36.6 C 11/30/18 15:56 Pulse 74 11/30/18 19:02 Resp 20 11/30/18 19:02 BP 106/47 L 11/30/18 19:02 Pulse Ox 98 11/30/18 19:02 Physical Exam: Gen: Elderly F, older than stated age, fraile, sitting up in bed, NAD, conversing easily, Head: Normocephalic, Atraumatic Eyes: Sclera normal, no conjunctival injection, anicteric, PERRLA, EOMI ENT: Gross hearing intact, normal pharynx, mucous membranes moist +thrush Neck: supple, no adenopathy, No JVD, no bruit, Resp: Clear to auscultation b/l with bibasilar crackles L > R, no wheeze, rales , rhonchi. Normal insp/exp effort, no accessory muscle use CV: Regular rate, regular rhythm, 2/6 MICHELLE noted throughout precordium, best at apex, no rub, gallop, or ectopy Abd: + truncal obesity, +BS x 4, soft, nontender, nondistended Musculoskeletal: moves extremities active rom x 4, strength 4/5 b/l, good oven press tender strength Extremities: No edema bilaterally, L lateral malleolar wound with slough tissue present centrally, peripheral wound bed appears to be healing. no surrounding erythema or warmth Skin: cool, dry, multiple areas of ecchymosis, roa tint to skin, no rash, negative turgor, cap refill 2sec Neuro: Alert and oriented x 3, speech normal, good mood/affect, cran nerve 2-12 intact grossly : deferred Results & Data Laboratory Results Short CBC 11/30/18 Range/Units 16:49 WBC 12.10 H (4.8-10.8) K/uL Hgb 11.6 L (12.0-16.0) g/dL Hct 34.3 L (37-47) % Plt Count 134 (130-400) K/uL BMP 11/30/18 16:49 Sodium 133 L Potassium 4.4 Chloride 92 L Carbon Dioxide 32 BUN 36 H Creatinine 3.19 H Glucose 224 H Calcium 8.6 Cardiac Enzymes 11/30/18 Range/Units 16:49 Troponin I 0.204 H* (0-0.045) ng/ml Liver Function 11/30/18 Range/Units 16:49 Total Bilirubin 1.8 H (0.2-1) mg/dl AST 99 H (15-37) U/L ALT 77 (12-78) U/L Alkaline Phosphatase 396 H (45-117) U/L Albumin 3.5 (3.4-5.0) gm/dl Diagnostic Findings CXR: IMPRESSION: Cardiomegaly without acute process. ECG Rate (beats per minute): 82 Rhythm: normal sinus Findings: + PVC and + prolonged QT (QTC 535 ms) Code Status & VTE Plan Code Status Full Code No Mech Ventilation VTE Prophylaxis Plan VTE Prophylaxis will be ordered: Yes Supervising Physician Co-Signing Physician Notes Agree with above H and P. Briefly 73F with hx of esrd, chf, and multiple medical problems who was recently at [facility] for chf and was also treated for her chronic left ankle wound and was discharged recently comes here as she developed chest pain and sob during dialysis today. Also complains of RUQ abdominal pain. NO fevers. No nausea. Appetite poor. Currently resting comfortably and hemodynamically stable p/e Ge not in distress Cvs s1 and s2 heard no murmurs Rs cta b/l no added sounds Abd RUQ tenderness present Ext Left lower extremity on lateral aspect of ankle open wound.Mildy warm and erythema seen. No drainage seen. Labs reviewed a/p Chest pain ekg unremarkale mild elevation of troponin- could be from ckd will follow serial troponin cardiology consulted because of risk factors. RUQ abdominal pain lfts more elevated than usual follow ct scan repeat labs Left ankle wound s/p left ankle orif in 08/2018 got infected with mrsa and was treated with abx daughter says its draining again on exam mildly warm will get xray to rule out osteomyelitis procalcitonin and lactic acid high will empirically start on zosyn and vanco consult orthopedics. _ (1) Type 2 diabetes mellitus with diabetic neuropathy Diabetes mellitus production supv insulin use: with production supv use Qualified Code(s) : E11.40 - Type 2 diabetes mellitus with diabetic neuropathy, unspecified; Z79.4 - back maker (current) use of insulin (2) CHF (congestive heart failure) Heart failure chronicity: unspecified Heart failure type: unspecified Qualified Code(s): I50.9 - Heart failure, unspecified (3) Wound of left ankle Encounter type: sequela Qualified Code(s): S91.002S - Unspecified open wound , left ankle, sequela (4) Hypothyroidism Hypothyroidism type: unspecified Qualified Code(s): E03.9 - Hypothyroidism, unspecified (5) GERD (gastroesophageal reflux disease) Esophagitis presence: without esophagitis Qualified Code(s): K21.9 - Gastro- esophageal reflux disease without esophagitis (6) Chest pain Chest pain type: unspecified Ischemic chest pain type: Qualified Code(s): R07.9 - Chest pain, unspecified (7) Hypotension Hypotension type: hemodialysis-associated hypotension Qualified Code(s): I95.3 - Hypotension of hemodialysis
[2018-11-30] MEDS ORDERED: DEXTROSE 50% 50 ML SYRINGE IV PRN (20:59)
[2018-11-30] MEDS ORDERED: GLUCAGON FOR INJ 1 MG VIAL SQ PRN (20:59)
[2018-11-30] MEDS ORDERED: predniSONE 10 MG TABLET PO SCH (20:59)
[2018-11-30] MEDS ORDERED: GLUCOSE 40% GEL 15 GM TUBE PO PRN (20:59)
[2018-11-30] MEDS ORDERED: DOCUSATE SODIUM 100 MG CAP PO PRN (20:59)
[2018-11-30] MEDS ORDERED: CARBOHYDRATES FOR HYPOGLYCEMIA PO PRN (20:59)
[2018-11-30] MEDS ORDERED: POLYETHYLENE (MIRALAX) 17 GM PACK PO PRN (20:59)
[2018-11-30] MEDS ORDERED: MAGNESIUM HYDROXIDE SUSP 30 ML UDC PO PRN (20:59)
[2018-11-30] MEDS ORDERED: FENTANYL TD SCH (20:59)
[2018-11-30] MEDS ORDERED: ALBUTEROL HFA 8 GM INHALER INH PRN (20:59)
[2018-11-30] MEDS ORDERED: GLUCOSE 10 TABS/TUBE PO PRN (20:59)
[2018-11-30] MEDS ORDERED: NITROGLYCERIN SL 0.4 MG/TAB TAB SL PRN (20:59)
[2018-11-30] MEDS ORDERED: ALUMINUM/MAGNESIUM SUSP 30 ML UDC PO PRN (20:59)
[2018-11-30] MEDS ORDERED: ACETAMINOPHEN 325 MG TAB PO PRN ×2 (20:59)
[2018-11-30] MEDS ORDERED: LORazepam 0.25 MG/0.5 ML VIAL IV PRN (21:08)
[2018-11-30] MEDS: SERTRALINE HCL 100 MG TABLET PO SCH (21:30)
[2018-11-30] MEDS ORDERED: VANCOMYCIN CONSULT ACTIVE PRN (21:54)
[2018-11-30 21:56] LABS: Bilirubin Direct 1.2 mg/dl (0-0.2); NT Pro B Type Natriuretic Pept > 35000 pg/ml (0-900)
[2018-11-30 21:58] LABS: Troponin I 0.207 ng/ml (0-0.045)
[2018-11-30] MEDS ORDERED: VANCOMYCIN HCL 1,000 MG in SODIUM CHLORIDE 0.9% 250 ML IV SCH (22:00)
--- NOTE | 2018-11-30 22:13 | XRay Report ---
XR ankle LT min 3V routine HISTORY: 73 years-old Female osteomyelitis? Acute left ankle pain and swelling COMPARISON: Left foot and ankle radiographs 09/03/2018 TECHNIQUE: 3 views of the left ankle FINDINGS: Lateral plate and screw fusion hardware of the distal fibula. There are 2 cannulated screws fixating the medial malleolus. Demineralized appearance of the bones. Marginal spurring about the ankle. No ac olaf fracture or dislocation. Spurring noted about the calcaneus. Dystrophic calcifications within the region of the distal Achilles tendon. Peripheral arterial calcifications also noted. No bony erosive changes identified to suggest acute osteomyelitis. IMPRESSION: 1. No acute fracture, dislocation or acute bony erosive changes. 2. ORIF changes with satisfactory alignment. 3. Mild circumferential soft tissue swelling about the ankle. The above report was generated using voice recognition software. It may contain grammatical, syntax o r spelling errors. Electronically signed by: Charly Carter M.D. 11/30/2018 10:12 PM
[2018-11-30] MEDS ORDERED: PIPERACILL/TAZOBAC CONSULT ACTIVE PRN (22:17)
[2018-11-30] MEDS ORDERED: PIPERACILLIN/TAZOBACTAM 4.5 GM in DEXTROSE 5% 100 ML IV SCH (22:30)
[2018-11-30] MEDS ORDERED: VANCOMYCIN HCL 1,500 MG in SODIUM CHLORIDE 0.9% 500 ML IV SCH (22:30)
--- NOTE | 2018-11-30 23:09 | CT Scan Report ---
ABDOMEN AND PELVIS CT WITHOUT CONTRAST CT DOSE: 742.62 mGy.cm HISTORY: Acute right upper quadrant abdominal pain with elevated LFTs elevated LFt, RUQ abdominal pa in TECHNIQUE: Multiaxial CT images of the abdomen and pelvis were performed without contrast. A dose lo wering technique was utilized adhering to the principles of ALARA. COMPARISON STUDY: CT abdomen and pelvis 06/29/2018 FINDINGS: Patchy consolidative and groundglass opacities of the lung bases. No pneumatosis or pneumoperitoneum. Imaged inferior cardiac chambers are moderately enlarged. Partially imaged pacer leads overlie the r ight heart chambers. Study is limited without the use of IV contrast. There is mild marginal nodularity about the liver wh ich appears unchanged. No intrahepatic biliary ductal dilation or focal hepatic mass lesion. Prior ch olecystectomy. Trace perihepatic ascites. Spleen and adrenal glands are unremarkable. Moderate genera lized pancreatic atrophy. Unchanged atrophic morphology about the bilateral kidneys with diffuse parenchymal thinning. Bilatera l simple and complex renal cysts redemonstrated. Possible punctate nonobstructing calculus of the inf erior pole left kidney. No ureteral calculi or obstructive uropathy. Decompressed or bladder. Prior h ysterectomy. Phleboliths are noted about the pelvis. Extensive calcification of the aorta. Left renal arterial stent graft. Infrarenal IVC filter. No bowel obstruction. Moderate formed stool throughout the colon suggests constipation. Mild inflamma tion of the perirectal fat, unchanged. Mild diffuse mesenteric edema. Nonvisualization of the appendi x. Diastases recti. Diffuse body wall edema with anterior skin thickening about the abdominal wall. D emineralized appearance of the bones. Multilevel facet arthrosis with spondylitic spurring. Chronic a ppearing fracture about the inferior right pubic ramus, unchanged. IMPRESSION: 1. No bowel obstruction or focal bowel wall thickening. 2. Suggested constipation. 3. Atrophic morphology of the bilateral kidneys. 4. Mild marginal nodularity of the liver is suggestive of mild cirrhotic liver disease. Trace perihep atic ascites . 5. Patchy groundglass and consolidative opacities of the lung bases suggests multifocal bronchopneumo mely or aspiration pneumonitis. 6. Prior cholecystectomy and hysterectomy. 7. Additional findings as above. Electronically signed by: Charly Carter M.D. 11/30/2018 11:07 PM
[2018-11-30] MEDS: ATORVASTATIN 40 MG TAB PO SCH (23:12)
[2018-11-30] MEDS: GABAPENTIN 100 MG CAP PO SCH (23:12)
[2018-11-30] MEDS: clonazePAM 0.5 MG TAB PO SCH (23:13)
[2018-11-30] MEDS: INSULIN GLARGINE SOLOSTAR 100 UNITS/ML 3 ML PEN SC SCH (23:13)
[2018-11-30] MEDS: CHECK FENTANYL PATCH PLACEMENT SCH ×2 (23:14)
[2018-11-30] MEDS: INSULIN ASPART 100 UNITS/ML 3 ML PEN SC SCH (23:23)
[2018-12-01] MEDS: IPRATROPIUM BROMIDE NEB SOLN 0.02% 2.5 ML VIAL INH SCH ×4 (01:50→19:13)
[2018-12-01] MEDS: LEVALBUTEROL HCL 0.63 MG/3 ML NEB NEB SCH ×4 (01:50→19:13)
[2018-12-01] MEDS ORDERED: XOPENEX/ATROVENT 0.63mg/0.5MG NEB COMBO NEB SCH (02:00)
[2018-12-01 04:31] LABS: INR 1.4 (0.9-1.1); Prothrombin Time 13.9 Seconds (9.0-12.0)
[2018-12-01] MEDS: LEVOTHYROXINE SODIUM 75 MCG TABLET PO SCH (05:35)
[2018-12-01 07:57] LABS: Hematocrit (blood only) 31.3 % (37-47); Hemoglobin 10.4 g/dL (12.0-16.0); Mean Corpuscular Hgb Conc 33.2 g/dL (32-36); Mean Corpuscular Volume 93.7 fL (80-100); Mean Platelet Volume 12.1 fL (7.4-10.4); Nucleated RBC # (auto) 0.18 K/uL (0-0); Nucleated RBC % (auto) 1.6 %; Platelet Count 120 K/uL (130-400); RDW Standard Deviation 58.4 fL (36.4-46.3); Red Blood Count 3.34 M/uL (4.2-5.4); White Blood Count 10.95 K/uL (4.8-10.8)
[2018-12-01 08:21] LABS: Basophils # (auto) 0.01 K/uL (0-0.2); Basophils % (auto) 0.1 %; Eosinophils # (auto) 0.04 K/uL (0-0.5); Eosinophils % (auto) 0.4 %; Immature Granulocytes % (auto) 0.9 %; Lymphocytes # (auto) 0.68 K/uL (1.2-3.4); Lymphocytes % (auto) 6.2 %; Monocytes # (auto) 0.81 K/uL (0.11-0.59); Monocytes % (auto) 7.4 %; Neutrophils # (auto) 9.31 K/uL (1.4-6.5); Target Cells 2+
[2018-12-01] MEDS: INSULIN ASPART 100 UNITS/ML 3 ML PEN SC SCH ×4 (08:30→20:26)
[2018-12-01 08:33] LABS: BUN Creatinine Ratio 12.4 (10-20); Calcium 8.1 mg/dl (8.5-10.1); Creatinine Clr Calc Pharmacy 10.9 ml/min; Est GFR (African American) 11.7; Est GFR (Non-African American) 10.1; Magnesium 2.1 mg/dl (1.8-2.4); Potassium 3.7 mmol/L (3.5-5.1)
[2018-12-01] MEDS: fentaNYL 12 MCG/HR TDSY TD SCH (08:58)
[2018-12-01] MEDS: fentaNYL 25 MCG/HR TDSY TD SCH (08:59)
[2018-12-01] MEDS ORDERED: HEPARIN SOD 5,000 UNIT/0.5 ML VIAL SQ SCH (09:00)
[2018-12-01] MEDS ORDERED: PIPERACILLIN/TAZOBACTAM 4.5 GM in DEXTROSE 5% 100 ML IV SCH (09:00)
--- NOTE | 2018-12-01 09:00 | Cardiology Consultation ---
Date of Consultation December 01, 2018 Assessment & Plan (1) Elevated troponin I level: Elevated troponin suggest NSTEMI versus tako tsubo syndrome. Denies chest discomfort or shortness of breath. Right arm and shoulder pain appears to be muscular skeletal in origin. We will continue intravenous heparin. Results of prior dobutamine stress echo reviewed which were indeterminate. Discussed further evaluation with cardiac catheterization however, patient unable to lie supine and declines further procedures at this time. We will plan medical management with intravenous heparin for 48 hours. Trend cardiac enzymes x3 sets. Repeat resting 2D transthoracic echocardiogram is pending at this time. (2) Chronic ischemic heart disease: History of prior circumflex stenting. (3) Chronic diastolic heart failure: Chronic edema stable. (4) Old GA (myocardial infarction): (5) HTN (hypertension): History of Present Illness Reason for Consultation: Elevated troponin Requesting Physician: Dr. Liriano Attending Physician: Alvaro Pittman MD Allergies Allergy/AdvReac Type Severity Reaction Status Date / Time Iodinated Contrast- Oral and Allergy Mild "Contrast Verified 09/04/18 09:07 IV Dye Media" -- unknown rxn adhesive Allergy Unknown "Tape" -- Verified 09/04/18 09:07 unknown rxn morphine Allergy Unknown UNKNOWN Verified 09/04/18 09:07 warfarin Allergy Unknown HYPERSENSIT Verified 09/04/18 09:07 IVITY/BLEED ING tomato AdvReac Intermediate GI SYMPTOMS Verified 09/04/18 09:07 Home Medications Home Medications Medication Instructions Recorded Confirmed Type amiodarone 200 mg PO QAM 09/03/18 11/30/18 History atorvastatin 40 mg PO HS 09/03/18 11/30/18 History calcium acetate 667 mg PO DAILY 09/03/18 11/30/18 History clonazepam 0.5 mg PO HS 09/03/18 11/30/18 History gabapentin 200 mg PO AMHS 09/03/18 11/30/18 History levothyroxine 75 mcg PO QAM 09/03/18 11/30/18 History multivitamin 1 tab PO QAM 09/03/18 11/30/18 History nitroglycerin [Nitrostat] 0.4 mg SUBLINGUAL DIRECTED PRN 09/03/18 11/30/18 History sertraline 100 mg PO HS 09/03/18 11/30/18 History acetaminophen 650 mg PO Q6H PRN 11/30/18 11/30/18 History albuterol sulfate [Ventolin HFA] 2 puff INHALATION Q4H PRN 11/30/18 11/30/18 History aspirin 81 mg PO QAM 11/30/18 11/30/18 History azithromycin 500 mg PO QAM 11/30/18 11/30/18 History bisacodyl 10 mg PO DIRECTED PRN 11/30/18 11/30/18 History clonazepam See Label Instructions .ROUTE 11/30/18 11/30/18 History .COMPLEX docusate sodium 100 mg PO Q12H PRN 11/30/18 11/30/18 History fentanyl 1 patch TRANSDERMAL Q72H 11/30/18 11/30/18 History glycerin (adult) 1 supp LA DAILY PRN 11/30/18 11/30/18 History guaifenesin 400 mg PO Q4H PRN 11/30/18 11/30/18 History hydrocodone-acetaminophen [[place]] 1 tab PO Q6H PRN 11/30/18 11/30/18 History midodrine 20 mg PO 3XWK 11/30/18 11/30/18 History midodrine See Label Instructions .ROUTE 11/30/18 11/30/18 History .COMPLEX ondansetron HCl 4 mg PO Q6H PRN 11/30/18 11/30/18 History polyethylene glycol 3350 17 g PO DAILY PRN 11/30/18 11/30/18 History prednisone See Label Instructions .ROUTE 11/30/18 11/30/18 History .COMPLEX ranitidine HCl 75 mg PO QAM 11/30/18 11/30/18 History Patient History Medical History History of fracture of left ankle 08/2018 ORIF trimalleolar fx Depression (Chronic) Left midfoot ulcer (Acute) Type 2 diabetes mellitus with diabetic neuropathy (Chronic) Acquired claw toe of right foot (Chronic) Acquired claw toe of left foot (Chronic) Ulcer of right midfoot (Acute) Diabetic retinopathy (Chronic) Paroxysmal atrial fibrillation (Chronic) TIA (transient ischemic attack) (Chronic) GERD (gastroesophageal reflux disease) (Chronic) Pulmonary hypertension (Chronic) Pulmonary embolism (Resolved) DM type 2 (diabetes mellitus, type 2) (Chronic) Chronic diastolic CHF (congestive heart failure) (Chronic) Nonischemic cardiomyopathy (Chronic) EVERTON treated with BiPAP (Chronic) Chronic respiratory failure with hypoxia (Chronic) Symptomatic bradycardia (Chronic) Pacemaker (Chronic) Hypertension (Chronic) Spinal stenosis (Chronic) Osteoarthritis (Chronic) Malignant melanoma (Chronic) Thrombocytopenia (Chronic) 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 Pt has been off coumadin since and not anticoagulation candidate ESRD (end stage renal disease) on dialysis (Chronic) Mitral regurgitation Surgical History H/O total hysterectomy (Chronic) S/P cholecystectomy (Chronic) S/P IVC filter (Chronic) AV fistula Pacemaker Family History Other Diabetes Social History marital status: Current Living Situation: Family Current Living Situation Comment: reports she lives in an apt, has caregivers Mon-Sat Feels Safe at Home: Yes Safety Concerns: Feels Safe At This Time Smoking Status: Former smoker Tobacco Type: cigarettes Hx Alcohol Use: No Hx Substance Use: No Beliefs That Will Affect Care: None Preferred Language: Yemeni Review of Systems The pertinent positives per HPI, comprehensive 10 system review is otherwise negative. Physical Exam 2 Vital Signs (Past 24 Hours): Last Vital Signs Temp 36.5 C 12/01/18 07:00 Pulse 75 12/01/18 07:02 Resp 16 12/01/18 07:02 BP 100/50 L 12/01/18 07:00 Pulse Ox 96 12/01/18 07:02
[2018-12-01] MEDS: guaiFENesin 200 MG TAB PO PRN (09:04)
[2018-12-01] MEDS: NYSTATIN SUSP 500,000 U/5 ML UDC PO SCH ×4 (09:04→20:25)
[2018-12-01] MEDS: INSULIN GLARGINE SOLOSTAR 100 UNITS/ML 3 ML PEN SC SCH ×2 (09:05→20:24)
[2018-12-01] MEDS: CHECK FENTANYL PATCH PLACEMENT SCH ×6 (09:05→22:49)
[2018-12-01] MEDS: AZITHROMYCIN 250 MG TAB PO SCH (09:06)
[2018-12-01] MEDS: MULTIVITAMIN TAB PO SCH (09:06)
[2018-12-01] MEDS: GABAPENTIN 100 MG CAP PO SCH ×2 (09:07→20:25)
[2018-12-01] MEDS: AMIODARONE 200 MG TAB PO SCH (09:07)
[2018-12-01] MEDS: ASPIRIN 81 MG ECTAB PO SCH (09:07)
[2018-12-01] MEDS: predniSONE 10 MG TABLET PO SCH (09:08)
[2018-12-01] MEDS ORDERED: NYSTATIN POWDER 15GM BTL EXT PRN (10:26)
--- NOTE | 2018-12-01 12:46 | Hospitalist Progress Note ---
Date of Service December 01, 2018 Assessment & Plan (1) Shortness of breath: This is a 73 y/o F with PMH ESRD on HD (deo, inez, marcy), IDDM, PAF, hx of TIA, nonischemic cardiomyopathy, chronic diastolic CHF, pulmonary hypertension, obesity hypoventilation syndrome, EVERTON on bipap, hx of symptomatic bradycardia s /p pacemaker, H/O PE s/p IVC filter, hypothyroidism, depression who presents to [facility] ED secondary to shortness of breath and chest pain x 1 day -Shortness of breath is due to multifactorial causes including CHF, recent non- ST elevation TX, fluid overload secondary to renal failure. -NSTEMI -Cycle troponins -consult cardiology appreciate input and recommendation -Continue (2) Elevated troponin: -plan as above -Likely has non-ST elevation TX -Has been on subcu heparin 5000 twice daily as prophylactic dose and will continue that -Patient has been having ongoing melena will hold any intravenous heparin right now (3) Chest pain: -plan as above-admitted with chest pain but denies any more pain since admission (4) Wound of left ankle: -s/p ORIF to L ankle 08/2018 -recently saw Ben Young PA-C in follow up who feels ankle is healing well -she is WBAT w/o need of assist device -Per BENIGNO Young note while in nursing facility she tested +for MRSA to wound therefore treated with course of bactrim due to concern for cellulitis; however at visit on 11/22/18 he felt Ankle/wound was healing well. -Has been on intravenous Zosyn and vancomycin for now -Likely to get a ID consult before the (5) Thrush: -nystatin swish and swallow QID (6) Elevated LFTs: - T bili 1.8, AST 99, ALT77, Alk Phos 396, check direct bili -while in [facility] LFTs mildly elevated, per family U/S of liver was done, no further work up as outpatient -will need to obtain records from [facility] for further work up -back in 08/2018 LFT WNL (7) CHF (congestive heart failure): -most recent echo 09/2018 EF 55-60%, diastolic dysfunction, RA dilated, pulm HTN -check BNP -does not appear to be volume overloaded at this time, given HD today -continue ASA, Statin -heart healthy, low NA diet, strict I and O, daily weights Likely to need dialysis to take out the fluid (8) ESRD (end stage renal disease) on dialysis: -on HD -will consult nephrology -received full HD treatment today Areli Bradford -Continue hemodialysis as scheduled (9) Type 2 diabetes mellitus with diabetic neuropathy: -Last A1C 6.4 09/16/18 -repeat A1C -Lantus/Novolog per protocol, titrate accordingly (10) Paroxysmal atrial fibrillation: -pacemaker in place -not on any oral anticoagulation or rate control medications (11) Hypotension: -continue midodrine (12) GERD (gastroesophageal reflux disease): -prn ranitidine -currently asymptomatic (13) EVERTON treated with BiPAP: -bipap at HS (14) Thrombocytopenia: -Plt ct 134, monitor closely -on heparin Q12hr for vte prophylaxis (15) Hypothyroidism: -continue levothyroxine -TSH 2.95 today (16) QT prolongation: -avoid QT prolonging medications -add ativan prn for n/v (17) DVT prophylaxis: -heparin 5,000 units SQ q12 hr -avoid SCD/TEDs given wound L ankle Disposition: to be determined, recently residing at [facility], consult case management Follow up: PCP Dr. Mo upon discharge Pt was seen in collaboration with Dr. garvin, please see addendum Starting 12/01/18 patient will be followed by Dr. Pittman (18) Melena: She has been having melanotic diarrhea since admit Hemoglobin is dropped to 10.4 from 11.5 on admit Will not give any intravenous heparin drip Monitor H&H Subjective She is a 73 y/o F with PMH ESRD on HD (, sun), IDDM, PAF, hx of TIA, nonischemic cardiomyopathy, chronic diastolic CHF, pulmonary hypertension, obesity hypoventilation syndrome, EVERTON on bipap, hx of symptomatic bradycardia s /p pacemaker, H/O PE s/p IVC filter, hypothyroidism, depression who presents to [facility] ED secondary to shortness of breath and chest pain x 1 day. 12/01 The patient was seen and examined in telemetry unit in presence of the family members She has been feeling a lot better and denies any significant symptoms Apparently she has been having melena without any abdominal pain nausea and vomiting Denies any more chest pain, shortness of breath and cough palpitation Physical Exam 2 Vital Signs (Past 24 Hours): Last Vital Signs Temp 36.5 C 12/01/18 11:53 Pulse 68 12/01/18 11:53 Resp 18 12/01/18 11:53 BP 91/57 L 12/01/18 11:53 Pulse Ox 100 12/01/18 11:53 Physical Exam: Lying in bed comfortably and looks a little pale Constitutional: WD/WN, vitals as above Eyes: PERRL, conjunctivae normal, anicteric sclerae ENMT: external ear and nose normal, oropharynx normal Respiratory: no respiratory distress Auscultation: + diminished lung sounds and + crackles (Minimal crackles both bases) Cardiovascular: Rate/Rhythm: regular rhythm and + tachycardic Heart Sounds : normal S1 and normal S2 Gastrointestinal (Abdomen): Inspection/Auscultation: abdomen normal to inspection and normal bowel sounds Percussion/Palpation: abdomen nontender and no guarding Neurologic: Alert, awake and oriented x3. Generally very weak and lethargic Results & Data Laboratory Results Short CBC 11/30/18 12/01/18 Range/Units 16:49 07:38 WBC 12.10 H 10.95 H (4.8-10.8) K/uL Hgb 11.6 L 10.4 L (12.0-16.0) g/dL Hct 34.3 L 31.3 L (37-47) % Plt Count 134 120 L (130-400) K/uL BMP 11/30/18 12/01/18 16:49 07:38 Sodium 133 L 135 L Potassium 4.4 3.7 D Chloride 92 L 94 L Carbon Dioxide 32 31 BUN 36 H 51 H Creatinine 3.19 H 4.06 H D Glucose 224 H 203 H Calcium 8.6 8.1 L Cardiac Enzymes 11/30/18 11/30/18 12/01/18 Range/Units 16:49 21:23 04:02 Troponin I 0.204 H* 0.207 H* 0.222 H* (0-0.045) ng/ml 12/01/18 Range/Units 10:09 Troponin I 0.264 H* (0-0.045) ng/ml Liver Function 11/30/18 11/30/18 Range/Units 16:49 21:23 Total Bilirubin 1.8 H (0.2-1) mg/dl Direct Bilirubin 1.2 H (0-0.2) mg/dl AST 99 H (15-37) U/L ALT 77 (12-78) U/L Alkaline Phosphatase 396 H (45-117) U/L Albumin 3.5 (3.4-5.0) gm/dl Medications Administered Current Inpatient Medications Acetaminophen (Tylenol) 650 mg PO Q6H PRN PRN Reason: Fever Or Pain Stop: 12/30/18 20:58 Hydrocodone Bitart/Acetaminophen ([place] 5/325) 1 tab PO Q6H PRN PRN Reason: Pain Stop: 12/14/18 20:58 Al Hydrox/Mg Hydrox/Simethicone (Maalox) 15 ml PO Q4H PRN PRN Reason: Dyspepsia Stop: 12/30/18 20:58 Albuterol (Ventolin Hfa) 2 puffs INH Q4H PRN PRN Reason: Wheezing Stop: 12/30/18 20:58 Amiodarone HCl (Cordarone) [facility] Stop: 12/31/18 08:59 Last Admin: 12/01/18 09:07 Dose: 200 mg Aspirin (Ecotrin Ectab) 81 [facility] [place] Stop: 12/31/18 08:59 Last Admin: 12/01/18 09:07 Dose: 81 mg Atorvastatin Calcium (Lipitor) 40 mg PO [facility] Stop: 12/30/18 20:59 Last Admin: 11/30/18 23:12 Dose: 40 mg Azithromycin (Zithromax) 250 [facility] [place] Stop: 12/04/18 09:01 Last Admin: 12/01/18 09:06 Dose: 250 mg Calcium Acetate (Phoslo) 667 mg PO DAILY@1200 [facility] Stop: 12/31/18 11:59 Clonazepam (Klonopin) 0.5 mg PO HS [facility] Stop: 12/30/18 20:59 Last Admin: 11/30/18 23:13 Dose: 0.5 mg Clonazepam (Klonopin) 0.5 mg PO TuThSa@1000 [facility] Stop: 01/02/19 09:59 Dextrose (Dextrose 50%) 25 - 50 ml IV UD PRN; Protocol PRN Reason: Hypoglycemia Protocol Stop: 12/30/18 20:58 Docusate Sodium (Colace) 100 mg PO Q12H PRN PRN Reason: Constipation Stop: 12/30/18 20:58 Fentanyl (Duragesic) 12 mcg TD Q3D JOHANA Stop: 12/15/18 08:59 Last Admin: 12/01/18 08:58 Dose: 12 mcg Fentanyl (Duragesic) 25 mcg TD Q3D JOHANA Stop: 12/15/18 08:59 Last Admin: 12/01/18 08:59 Dose: 25 mcg Gabapentin (Neurontin) 200 mg PO AMHS JOHANA Stop: 12/30/18 20:59 Last Admin: 12/01/18 09:07 Dose: 200 mg Glucagon (Glucagen) 1 mg SQ UD PRN; Protocol PRN Reason: Hypoglycemia Protocol Stop: 12/30/18 20:58 Glucose (Glucose 40%) 15 - 30 gm PO UD PRN; Protocol PRN Reason: Hypoglycemia Protocol Stop: 12/30/18 20:58 Glucose (Dex4 Glucose) 4 - 8 tabs PO UD PRN; Protocol PRN Reason: Hypoglycemia Protocol Stop: 12/30/18 20:58 Guaifenesin (Organidin Nr) 400 mg PO Q4H PRN PRN Reason: Cough Last Admin: 12/01/18 09:04 Dose: 400 mg Heparin Sodium (Porcine) (Heparin Sodium (Porcine)) 5,000 units SQ Q12 [facility] Stop: 12/31/18 08:59 Last Admin: 12/01/18 09:07 Dose: 5,000 units Lorazepam (Ativan) 0.25 mg in 0.5 mls @ 0.5 mls/min IV Q4H PRN PRN Reason: Nausea And Vomiting Stop: 12/30/18 21:07 Piperacillin Sod/Tazobactam (Sod 4.5 gm/ Dextrose) 120 mls @ 30 mls/hr IV Q12 JOHANA; Protocol Stop: 12/11/18 08:59 Last Admin: 12/01/18 09:09 Dose: 30 mls/hr Insulin Aspart (Novolog Flexpen) 0 units SC ACHS [facility] Stop: 12/30/18 20:59 Last Admin: 12/01/18 08:30 Dose: 4 units Insulin Glargine (Lantus Solostar Pen) 5 units SC Q12H [facility] Stop: 12/30/18 20:59 Last Admin: 12/01/18 09:05 Dose: 5 units Ipratropium [place] (Atrovent 0.02% 0.5mg/2.5ml) 0.5 mg INH Q6R [facility] Stop: 12/31/18 01:59 Last Admin: 12/01/18 06:56 Dose: 0.5 mg Levalbuterol HCl (Xopenex 0.63 Mg/3 Ml Neb) 0.63 mg NEB Q6R [facility] Stop: 12/31/18 01:59 Last Admin: 12/01/18 06:56 Dose: 0.63 mg Levothyroxine Sodium (Synthroid) 75 mcg PO DAILYBB [facility] Stop: 12/31/18 06:29 Last Admin: 12/01/18 05:35 Dose: 75 mcg Magnesium Hydroxide (Milk Of Magnesia) 30 ml PO Q12H PRN PRN Reason: Constipation Stop: 12/30/18 20:58 Midodrine (Proamatine) 20 mg PO TuThSa@1000 [facility] Stop: 01/02/19 09:59 Midodrine (Proamatine) 10 mg PO MoWeFr@0900 [facility] Stop: 01/01/19 08:59 Miscellaneous (Carbohydrates For Hypoglycemia) 15 - 30 gm PO UD PRN PRN Reason: Hypoglycemia Treatment Stop: 12/30/18 20:58 Miscellaneous (Fentanyl Patch Remove & Waste) 1 ea N/A Q72H [facility] Stop: 01/03/19 08:58 Last Admin: 12/01/18 09:10 Dose: 2 ea Miscellaneous (Fentanyl Patch Remove & Waste) 1 ea N/A Q72H [facility] Stop: 01/03/19 08:58 Miscellaneous (Fentanyl Patch Check Placement) 1 ea N/A QS [facility] Stop: 12/31/18 07:59 Last Admin: 12/01/18 09:05 Dose: 1 ea Miscellaneous (Fentanyl Patch Check Placement) 1 ea N/A QS [facility] Stop: 12/31/18 07:59 Last Admin: 12/01/18 09:05 Dose: 1 ea Miscellaneous Information (Consult) 1 ea N/A UD PRN PRN Reason: Consult Stop: 12/30/18 21:53 Miscellaneous Information (Consult) 1 ea N/A UD PRN PRN Reason: Consult Stop: 12/30/18 22:16 Multivitamins (Multivitamin Tab) 1 tab PO QAM JOHANA Stop: 12/31/18 08:59 Last Admin: 12/01/18 09:06 Dose: 1 tab Nitroglycerin (Nitrostat) 0.4 mg SL PRN PRN PRN Reason: Chest Pain Stop: 12/30/18 20:58 Nystatin (Mycostatin) 10 ml PO QID JOHANA Stop: 12/31/18 08:59 Last Admin: 12/01/18 09:04 Dose: 10 ml Nystatin (Mycostatin) 1 appln EXT BID PRN PRN Reason: Affected Skin Folds Stop: 12/31/18 10:25 Polyethylene Glycol (Miralax Powder Packet) 17 gm PO DAILY PRN PRN Reason: Constipation Stop: 12/30/18 20:58 Prednisone (Prednisone) 30 mg PO QAM [facility]; Taper Stop: 12/10/18 08:59 Last Admin: 12/01/18 09:08 Dose: 30 mg Ranitidine HCl (Zantac) 75 mg PO QAM [facility] Stop: 12/31/18 08:59 Last Admin: 12/01/18 08:59 Dose: 75 mg Sertraline HCl (Zoloft) 100 mg PO HS [facility] Stop: 12/30/18 20:59 Last Admin: 11/30/18 21:30 Dose: 100 mg _ (1) Type 2 diabetes mellitus with diabetic neuropathy 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: with 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 vertical use Qualified Code(s) : E11.40 - Type 2 diabetes mellitus with diabetic neuropathy, unspecified; Z79.4 - 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 (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) use of insulin (2) CHF (congestive heart failure) Heart failure chronicity: unspecified Heart failure type: unspecified Qualified Code(s): I50.9 - Heart failure, unspecified (3) Wound of left ankle Encounter type: sequela Qualified Code(s): S91.002S - Unspecified open wound , left ankle, sequela (4) Hypothyroidism Hypothyroidism type: unspecified Qualified Code(s): E03.9 - Hypothyroidism, unspecified (5) GERD (gastroesophageal reflux disease) Esophagitis presence: without esophagitis Qualified Code(s): K21.9 - Gastro- esophageal reflux disease without esophagitis (6) Chest pain Chest pain type: unspecified Ischemic chest pain type: Qualified Code(s): R07.9 - Chest pain, unspecified (7) Hypotension Hypotension type: hemodialysis-associated hypotension Trimester: Qualified Code(s): I95.3 - Hypotension of hemodialysis
[2018-12-01] MEDS: CALCIUM ACETATE 667 MG CAP PO SCH (12:47)
--- NOTE | 2018-12-01 13:47 | Pharmacy Report ---
Pharmacy Abx Initial Consult - Date of Service December 01, 2018 - Pharmacy Dosing Scope Date of Consult: 11/30/18 Consultation requested by: Dr. Liriano Pharmacy is consulted to initiate Vancomycin and Zosyn IV dosing therapy, order appropriate labs and adjust drug dose/frequency. - Subjective The patient is a 73 year old F admitted on 11/30/18 19:47. - Objective Height: 5 ft Weight: 75.5 kg Vital Signs (Past 12hrs): Vital Signs Temp Pulse Pulse Pulse Resp BP BP 12/01/18 11:53 36.5 C 68 18 91/57 L 12/01/18 07:02 75 16 12/01/18 07:00 36.5 C 83 18 100/50 L 12/01/18 06:59 75 16 12/01/18 04:00 36 C L 72 18 84/46 L 12/01/18 01:58 71 12 12/01/18 01:57 71 12 Pulse Ox 12/01/18 11:53 100 12/01/18 07:02 96 12/01/18 07:00 99 12/01/18 06:59 96 12/01/18 04:00 97 12/01/18 01:58 92 12/01/18 01:57 92 Lab Results (24hrs): Laboratory Tests (24 Hours) 12/01/18 12/01/18 11/30/18 07:38 07:38 16:49 WBC 10.95 H Neut # (Auto) 9.31 H Creatinine 4.06 H D Est Cr Clr Drug Dosing 10.9 Procalcitonin 1.94 H 11/30/18 11/30/18 16:49 16:49 WBC 12.10 H Neut # (Auto) 11.25 H Creatinine 3.19 H Est Cr Clr Drug Dosing Not Reportable Procalcitonin Micro Results: 11/30/18 22:25 Gram Stain - Final Leg,Left 11/30/18 16:56 Blood Culture - Pending Blood 11/30/18 16:49 Blood Culture - Pending Blood - Risk Factors for Resistance * Resident in a senior living or extended-care facility * Hospitalization for 48 hours or more within the past 90 days * Chronic dialysis within the past 30 days- dialysis Tues, Thurs and Sat * History of infection with a multidrug-resistant organism: MRSA in her foot * Antimicrobial use within the last 90 days: Bactrim and Vanc - Assessment & Plan Assessment 73 year old F presenting to the ED secondary to SOB and chest pain. * Was recently admitted to [facility] on 11/24 for CHF exacerbation and discharged on 11/28. Was treated with IV vanc while in hospital for L ankle cellulitis. * Patient suffered ankle fracture and was hospitalized in August 2018 and underwent ORIF. Has been having difficulty with wound healing- history of MRSA in wound and was treated with bactrim and Vanc in the hospital. Patient receives dialysis on Sunday, and Sunday. Wound culture and blood culture x2 currently pending Plan Vancomycin and Zosyn for treatment of ankle wound that was previously positive for MRSA Vancomycin IV * Estimated PK Parameters: Vd 0.61 L/kg, All 0.015 hr-1, t1/2 46 hr * Loading dose: 1500mg (20 mg/kg) * Will give additional doses based on random levels * Goal trough level for ankle wound: 15 to 20 mcg/mL * Random level ordered for 12/01/18 with AM labs * A less than traditional dose has been selected due to likelihood of drug accumulation in patient with h/o CKD. Piperacillin/tazobactam * 4.5 g bolus administered over 30 minutes, then 3.375 g IV extended infusion every 12 hours for CrCl 20 mL/min or less and dialysis. Pharmacy will continue to follow and will adjust dose/frequency as necessary. Thank you.
--- NOTE | 2018-12-01 14:45 | Nephrology Consultation ---
Date of Consultation December 01, 2018 Assessment & Plan (1) ESRD (end stage renal disease) on dialysis: plan next full hd via avf on 12/03; but will reassess for need for extra tx in am as well and likely try 2hrs; she has some fluid on board, michael in abdomen; will be difficult to be clear how much is fluid, how much is infection/ inflammation in lungs Present on Admission?: Yes (2) Hypotension: on midodrine w/ HD; her sbp seems to run 80-90s at baseline; she is at baseline Present on Admission?: Yes (3) Melena: -no heparin w/ HD -daily cbc -follow OP routine for anemia mgt on ESRD Present on Admission?: Yes (4) Shortness of breath: no keysha vol OL -- would not do urgent HD; further per primary service -reassess in am for earlier tx if needed Present on Admission?: Yes History of Present Illness Reason for Consultation: ESRD on dialysis Requesting Physician: Dr Pittman Attending Physician: Alvaro Pittman MD History of Present Illness 72 y/o F w/ ESRD on TRSat HD via AVF whom I'm asked to see for continuation of HD while admitted for evaluation of elevated troponins after presenting w/ dyspnea on 11/30, her regular dialysis day and after a full HD tx. She has had bronchitis/uri sx w/ severe cough ongoing she states for about a month. Also noted to have L ankle wound for which she has been getting close/chronic outpt care. 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 She dialyzes under the care of Georgie Miller in [facility]. she has been having melanotic diarrhea since admission and hgb being watched closely, heparin gtt deferred. Takes midodrine w/ HD 20 mg and states usually tolerates up to 3L UF. Allergies Allergy/AdvReac Type Severity Reaction Status Date / Time Iodinated Contrast- Oral and Allergy Mild "Contrast Verified 09/04/18 09:07 IV Dye Media" -- unknown rxn adhesive Allergy Unknown "Tape" -- Verified 09/04/18 09:07 unknown rxn morphine Allergy Unknown UNKNOWN Verified 09/04/18 09:07 warfarin Allergy Unknown HYPERSENSIT Verified 09/04/18 09:07 IVITY/BLEED ING tomato AdvReac Intermediate GI SYMPTOMS Verified 09/04/18 09:07 Home Medications Home Medications Medication Instructions Recorded Confirmed Type amiodarone 200 mg PO QAM 09/03/18 11/30/18 History atorvastatin 40 mg PO HS 09/03/18 11/30/18 History calcium acetate 667 mg PO DAILY 09/03/18 11/30/18 History clonazepam 0.5 mg PO HS 09/03/18 11/30/18 History gabapentin 200 mg PO AMHS 09/03/18 11/30/18 History levothyroxine 75 mcg PO QAM 09/03/18 11/30/18 History multivitamin 1 tab PO QAM 09/03/18 11/30/18 History nitroglycerin [Nitrostat] 0.4 mg SUBLINGUAL DIRECTED PRN 09/03/18 11/30/18 History sertraline 100 mg PO HS 09/03/18 11/30/18 History acetaminophen 650 mg PO Q6H PRN 11/30/18 11/30/18 History albuterol sulfate [Ventolin HFA] 2 puff INHALATION Q4H PRN 11/30/18 11/30/18 History aspirin 81 mg PO QAM 11/30/18 11/30/18 History azithromycin 500 mg PO QAM 11/30/18 11/30/18 History bisacodyl 10 mg PO DIRECTED PRN 11/30/18 11/30/18 History clonazepam See Label Instructions .ROUTE 11/30/18 11/30/18 History .COMPLEX docusate sodium 100 mg PO Q12H PRN 11/30/18 11/30/18 History fentanyl 1 patch TRANSDERMAL Q72H 11/30/18 11/30/18 History glycerin (adult) 1 supp HI DAILY PRN 11/30/18 11/30/18 History guaifenesin 400 mg PO Q4H PRN 11/30/18 11/30/18 History hydrocodone-acetaminophen [[place]] 1 tab PO Q6H PRN 11/30/18 11/30/18 History midodrine 20 mg PO 3XWK 11/30/18 11/30/18 History midodrine See Label Instructions .ROUTE 11/30/18 11/30/18 History .COMPLEX ondansetron HCl 4 mg PO Q6H PRN 11/30/18 11/30/18 History polyethylene glycol 3350 17 g PO DAILY PRN 11/30/18 11/30/18 History prednisone See Label Instructions .ROUTE 11/30/18 11/30/18 History .COMPLEX ranitidine HCl 75 mg PO QAM 11/30/18 11/30/18 History Patient History Medical History History of fracture of left ankle 08/2018 ORIF trimalleolar fx Depression (Chronic) Left midfoot ulcer (Acute) Type 2 diabetes mellitus with diabetic neuropathy (Chronic) Acquired claw toe of right foot (Chronic) Acquired claw toe of left foot (Chronic) Ulcer of right midfoot (Acute) Diabetic retinopathy (Chronic) Paroxysmal atrial fibrillation (Chronic) TIA (transient ischemic attack) (Chronic) GERD (gastroesophageal reflux disease) (Chronic) Pulmonary hypertension (Chronic) Pulmonary embolism (Resolved) DM type 2 (diabetes mellitus, type 2) (Chronic) Chronic diastolic CHF (congestive heart failure) (Chronic) Nonischemic cardiomyopathy (Chronic) EVERTON treated with BiPAP (Chronic) Chronic respiratory failure with hypoxia (Chronic) Symptomatic bradycardia (Chronic) Pacemaker (Chronic) Hypertension (Chronic) Spinal stenosis (Chronic) Osteoarthritis (Chronic) Malignant melanoma (Chronic) Thrombocytopenia (Chronic) 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 Pt has been off coumadin since and not anticoagulation candidate ESRD (end stage renal disease) on dialysis (Chronic) Mitral regurgitation Surgical History H/O total hysterectomy (Chronic) S/P cholecystectomy (Chronic) S/P IVC filter (Chronic) AV fistula Pacemaker Family History Other Diabetes Social History marital status: Current Living Situation: Family Current Living Situation Comment: reports she lives in an apt, has caregivers Mon-Sat Feels Safe at Home: Yes Safety Concerns: Feels Safe At This Time Smoking Status: Former smoker Tobacco Type: cigarettes Hx Alcohol Use: No Hx Substance Use: No Beliefs That Will Affect Care: None Communication Ability: Effective Review of Systems Constitutional: + fatigue and + weakness; no fever Eyes: no worsening vision Ear, Nose, Mouth, Throat: no dry mouth Respiratory: + cough, + chest congestion, + dyspnea and + dyspnea on exertion Cardiovascular: + chest pain, + dyspnea on exertion and + edema (stable/baseline ); no orthopnea Gastrointestinal: + change in bowel habits, + diarrhea/loose stools and + melena (?possible); no abdominal pain, no belching and no vomiting states she "carries her fluid" in her abdomen and has some but not excessive amount on board now she voids still but not daily; denies change in voiding habits recently Musculoskeletal: + back pain Integumentary: + non-healing lesions (L ankle) Neurologic: + generalized weakness; no abnormal movements and no confusion Psychiatric: no behavioral changes and no depression Endocrine: + fatigue Hematologic / Lymphatic: no easy bleeding Physical Exam 2 Vital Signs (Past 24 Hours): Last Vital Signs Temp 36.5 C 12/01/18 11:53 Pulse 77 12/01/18 14:11 Resp 16 12/01/18 14:11 BP 91/57 L 12/01/18 11:53 Pulse Ox 95 12/01/18 14:11 Constitutional: well developed and well nourished lying flat on 3L 02NC w/ thick heavy cough. nad, a& 0 x 3 Eyes: EOM intact bilaterally ENMT: Ears: no external ear abnormality Nose: no external nose abnormality Mouth: + dry oral mucous membranes Neck: no nuchal rigidity Respiratory: normal respiratory effort Auscultation: + diminished lung sounds and + crackles (michael R base) Cardiovascular: Rate/Rhythm: regular rate and regular rhythm Heart Sounds: + murmur Extremities: + edema (trace BL) and + AV fistula (LUE + t/b) Gastrointestinal (Abdomen): Inspection/Auscultation: normal bowel sounds Percussion/Palpation: abdomen soft and + ascites; abdomen nontender Musculoskeletal: Extremities: strength 5/5 throughout Skin: no rashes, warm and dry ankle wound not examined Neurologic: carreon, fluent speech, no tremor Psychiatric: A+Ox3, euthymic affect Eye Contact: good eye contact Speech : normal rate/rhythm/volume of speech Genitourinary: no arnold Results & Data Laboratory Results Abnormal lab results 11/30/18 11/30/18 11/30/18 Range/Units 16:49 16:49 16:49 WBC 12.10 H (4.8-10.8) K/uL RBC 3.69 L (4.2-5.4) M/uL Hgb 11.6 L (12.0-16.0) g/dL Hct 34.3 L (37-47) % RDW Std Deviation 57.6 H (36.4-46.3) fL RDW Coeff of Anatoly 17.5 H (11.5-14.5) % Plt Count (130-400) K/uL MPV 12.5 H (7.4-10.4) fL Immature Gran # (Auto) 0.12 H (0.00-0.02) K/uL Neut # (Auto) 11.25 H (1.4-6.5) K/uL Lymph # (Auto) 0.36 L (1.2-3.4) K/uL [place] # (Auto) (0.11-0.59) K/uL Absolute Nucleated RBC 0.17 H (0-0) K/uL PT (9.0-12.0) Seconds INR (0.9-1.1) Sodium 133 L (136-145) mmol/L Chloride 92 L (98-107) mmol/L BUN 36 H (7-18) mg/dl Creatinine 3.19 H (0.6-1.2) mg/dl Glucose 224 H (70-99) mg/dl POC Glucose (70-99) Lactate (0.4-2.0) mmol/L Calcium (8.5-10.1) mg/dl Total Bilirubin 1.8 H (0.2-1) mg/dl Direct Bilirubin (0-0.2) mg/dl AST 99 H (15-37) U/L Alkaline Phosphatase 396 H (45-117) U/L Troponin I 0.204 H* (0-0.045) ng/ml NT-Pro-B Natriuret Pep (0-900) pg/ml Procalcitonin 1.94 H (0-0.5) ng/ml Stool Occult Bld Scrn (Negative) 11/30/18 11/30/1819 Range/Units 21:23 21:24 22:10 WBC (4.8-10.8) K/uL RBC (4.2-5.4) M/uL Hgb (12.0-16.0) g/dL Hct (37-47) % RDW Std Deviation (36.4-46.3) fL RDW Coeff of Anatoly (11.5-14.5) % Plt Count (130-400) K/uL MPV (7.4-10.4) fL Immature Gran # (Auto) (0.00-0.02) K/uL Neut # (Auto) (1.4-6.5) K/uL Lymph # (Auto) (1.2-3.4) K/uL [place] # (Auto) (0.11-0.59) K/uL Absolute Nucleated RBC (0-0) K/uL PT (9.0-12.0) Seconds INR (0.9-1.1) Sodium (136-145) mmol/L Chloride (98-107) mmol/L BUN (7-18) mg/dl Creatinine (0.6-1.2) mg/dl Glucose (70-99) mg/dl POC Glucose (70-99) Lactate 2.8 H* (0.4-2.0) mmol/L Calcium (8.5-10.1) mg/dl Total Bilirubin (0.2-1) mg/dl Direct Bilirubin 1.2 H (0-0.2) mg/dl AST (15-37) U/L Alkaline Phosphatase (45-117) U/L Troponin I 0.207 H* (0-0.045) ng/ml NT-Pro-B Natriuret Pep > 97582 H (0-900) pg/ml Procalcitonin (0-0.5) ng/ml Stool Occult Bld Scrn Positive H (Negative) 11/30/18 12/01/18 12/01/18 Range/Units 23:21 04:02 04:02 WBC (4.8-10.8) K/uL RBC (4.2-5.4) M/uL Hgb (12.0-16.0) g/dL Hct (37-47) % RDW Std Deviation (36.4-46.3) fL RDW Coeff of Anatoly (11.5-14.5) % Plt Count (130-400) K/uL MPV (7.4-10.4) fL Immature Gran # (Auto) (0.00-0.02) K/uL Neut # (Auto) (1.4-6.5) K/uL Lymph # (Auto) (1.2-3.4) K/uL [place] # (Auto) (0.11-0.59) K/uL Absolute Nucleated RBC (0-0) K/uL PT 13.9 H (9.0-12.0) Seconds INR 1.4 H (0.9-1.1) Sodium (136-145) mmol/L Chloride (98-107) mmol/L BUN (7-18) mg/dl Creatinine (0.6-1.2) mg/dl Glucose (70-99) mg/dl POC Glucose 249 H (70-99) Lactate (0.4-2.0) mmol/L Calcium (8.5-10.1) mg/dl Total Bilirubin (0.2-1) mg/dl Direct Bilirubin (0-0.2) mg/dl AST (15-37) U/L Alkaline Phosphatase (45-117) U/L Troponin I 0.222 H* (0-0.045) ng/ml NT-Pro-B Natriuret Pep (0-900) pg/ml Procalcitonin (0-0.5) ng/ml Stool Occult Bld Scrn (Negative) 12/01/18 12/01/18 12/01/18 Range/Units 07:37 07:38 07:38 WBC 10.95 H (4.8-10.8) K/uL RBC 3.34 L (4.2-5.4) M/uL Hgb 10.4 L (12.0-16.0) g/dL Hct 31.3 L (37-47) % RDW Std Deviation 58.4 H (36.4-46.3) fL RDW Coeff of Anatoly 18.0 H (11.5-14.5) % Plt Count 120 L (130-400) K/uL MPV 12.1 H (7.4-10.4) fL Immature Gran # (Auto) 0.10 H (0.00-0.02) K/uL Neut # (Auto) 9.31 H (1.4-6.5) K/uL Lymph # (Auto) 0.68 L (1.2-3.4) K/uL [place] # (Auto) 0.81 H (0.11-0.59) K/uL Absolute Nucleated RBC 0.18 H (0-0) K/uL PT (9.0-12.0) Seconds INR (0.9-1.1) Sodium 135 L (136-145) mmol/L Chloride 94 L (98-107) mmol/L BUN 51 H (7-18) mg/dl Creatinine 4.06 H D (0.6-1.2) mg/dl Glucose 203 H (70-99) mg/dl POC Glucose 214 H (70-99) Lactate (0.4-2.0) mmol/L Calcium 8.1 L (8.5-10.1) mg/dl Total Bilirubin (0.2-1) mg/dl Direct Bilirubin (0-0.2) mg/dl AST (15-37) U/L Alkaline Phosphatase (45-117) U/L Troponin I (0-0.045) ng/ml NT-Pro-B Natriuret Pep (0-900) pg/ml Procalcitonin (0-0.5) ng/ml Stool Occult Bld Scrn (Negative) 12/01/18 12/01/18 Range/Units 10:09 11:17 WBC (4.8-10.8) K/uL RBC (4.2-5.4) M/uL Hgb (12.0-16.0) g/dL Hct (37-47) % RDW Std Deviation (36.4-46.3) fL RDW Coeff of Anatoly (11.5-14.5) % Plt Count (130-400) K/uL MPV (7.4-10.4) fL Immature Gran # (Auto) (0.00-0.02) K/uL Neut # (Auto) (1.4-6.5) K/uL Lymph # (Auto) (1.2-3.4) K/uL [place] # (Auto) (0.11-0.59) K/uL Absolute Nucleated RBC (0-0) K/uL PT (9.0-12.0) Seconds INR (0.9-1.1) Sodium (136-145) mmol/L Chloride (98-107) mmol/L BUN (7-18) mg/dl Creatinine (0.6-1.2) mg/dl Glucose (70-99) mg/dl POC Glucose 223 H (70-99) Lactate (0.4-2.0) mmol/L Calcium (8.5-10.1) mg/dl Total Bilirubin (0.2-1) mg/dl Direct Bilirubin (0-0.2) mg/dl AST (15-37) U/L Alkaline Phosphatase (45-117) U/L Troponin I 0.264 H* (0-0.045) ng/ml NT-Pro-B Natriuret Pep (0-900) pg/ml Procalcitonin (0-0.5) ng/ml Stool Occult Bld Scrn (Negative) Diagnostic Findings echo 09/2018 EF 55-60%, diastolic dysfunction, RA dilated, pulm HTN cxr > cardiomegaly w/o acute process CT abd/pelvis noncon 11/30 Patchy consolidative and groundglass opacities of the lung bases. No pneumatosis or pneumoperitoneum. Imaged inferior cardiac chambers are moderately enlarged. Partially imaged pacer leads overlie the right heart chambers. Study is limited without the use of IV contrast. There is mild marginal nodularity about the liver which appears unchanged. No intrahepatic biliary ductal dilation or focal hepatic mass lesion. Prior cholecystectomy. Trace perihepatic ascites. Spleen and adrenal glands are unremarkable. Moderate generalized pancreatic atrophy. Unchanged atrophic morphology about the bilateral kidneys with diffuse parenchymal thinning. Bilateral simple and complex renal cysts redemonstrated. Possible punctate nonobstructing calculus of the inferior pole left kidney. No ureteral calculi or obstructive uropathy. Decompressed or bladder. Prior hysterectomy. Phleboliths are noted about the pelvis. Extensive calcification of the aorta. Left renal arterial stent graft. Infrarenal IVC filter. No bowel obstruction. Moderate formed stool throughout the colon suggests constipation. Mild inflammation of the perirectal fat, unchanged. Mild diffuse mesenteric edema. Nonvisualization of the appendix. Diastases recti. Diffuse body wall edema with anterior skin thickening about the abdominal wall. Demineralized appearance of the bones. Multilevel facet arthrosis with spondylitic spurring. Chronic appearing fracture about the inferior right pubic ramus, unchanged. IMPRESSION: 1. No bowel obstruction or focal bowel wall thickening. 2. Suggested constipation. 3. Atrophic morphology of the bilateral kidneys. 4. Mild marginal nodularity of the liver is suggestive of mild cirrhotic liver disease. Trace perihepatic ascites . 5. Patchy groundglass and consolidative opacities of the lung bases suggests multifocal bronchopneumonia or aspiration pneumonitis. 6. Prior cholecystectomy and hysterectomy. 7. Additional findings as above. L ankle XR 1. No acute fracture, dislocation or acute bony erosive changes. 2. ORIF changes with satisfactory alignment. 3. Mild circumferential soft tissue swelling about the ankle. _ (1) Hypotension Hypotension type: hemodialysis-associated hypotension Trimester: Qualified Code(s): I95.3 - Hypotension of hemodialysis
--- NOTE | 2018-12-01 14:51 | Cardiology Consultation ---
Date of Consultation December 01, 2018 Assessment & Plan (1) Elevated troponin I level: Likely multifactorial secondary to volume overload, decompensated heart failure in the setting of end-stage renal disease and possible underlying upper respiratory tract infection/bronchitis. Plaque rupture event less likely. Recommend volume removal with dialysis treatment although this can likely be scheduled via her next treatment. Patient is not in duress at this time. Agree with withholding anticoagulation currently with reported melanotic stools. Follow H&H daily. Continue aspirin, statin, and amiodarone. (2) NICM (nonischemic cardiomyopathy): Most recent echocardiogram performed in 2017 demonstrates ejection fraction of 40-44%. Patient currently is not treated with evidence-based heart failure therapy due to hypotension requiring Midodrine. She would benefit from ONEL inhibition and evidence-based beta-claudia therapy, however, I doubt she will be able to tolerate these medications in setting of chronic hypotension. Repeat echocardiogram ordered with results pending at this time. (3) Acute on chronic heart failure with reduced ejection fraction and diastolic dysfunction: Volume management with hemodialysis. Prominent edema and crackles on examination indicating need for fluid removal/weight reduction. (4) Paroxysmal atrial fibrillation: Maintained in sinus rhythm with amiodarone. Patient is not a long-term anticoagulation candidate due to history of hemorrhagic pericarditis/tamponade. (5) Pulmonary hypertension: (6) Pacemaker: Interrogation suggest atrial oversensing. I have spoken with a diesel technician from [facility] who will reinterrogate pacemaker and adjust settings for adequate sensitivity. Patient has missed pacemaker follow-up in the outpatient setting. History of Present Illness Reason for Consultation: Elevated troponin, shortness of breath Requesting Physician: Dr. Kaz Pittman Attending Physician: Alvaro Pittman MD History of Present Illness 73-year-old female who appears older than stated age presented to the emergency department with shortness of breath and chest discomfort. Patient reports cough for approximately 2 weeks. Scant sputum noted. Troponins are mildly elevated and flat. ECG demonstrates an AV paced rhythm. Intrinsic conduction demonstrates a right bundle branch block without ischemic changes. Chest pain- free overnight. Reports chronic bilateral lower extremity edema. 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 Currently patient is resting comfortably. Notes a harsh cough as noted above. No fever, chills, or sick contacts. Edema is prominent, however, she states this is a chronic finding. Denies paroxysmal nocturnal dyspnea however orthopnea is present. No palpitations, lightheadedness, dizziness, syncope, or near syncope. She lives independently. Noncompliant with cardiology and pacemaker follow-up per review of records. Allergies Allergy/AdvReac Type Severity Reaction Status Date / Time Iodinated Contrast- Oral and Allergy Mild "Contrast Verified 09/04/18 09:07 IV Dye Media" -- unknown rxn adhesive Allergy Unknown "Tape" -- Verified 09/04/18 09:07 unknown rxn morphine Allergy Unknown UNKNOWN Verified 09/04/18 09:07 warfarin Allergy Unknown HYPERSENSIT Verified 09/04/18 09:07 IVITY/BLEED ING tomato AdvReac Intermediate GI SYMPTOMS Verified 09/04/18 09:07 Home Medications Home Medications Medication Instructions Recorded Confirmed Type amiodarone 200 mg PO QAM 09/03/18 11/30/18 History atorvastatin 40 mg PO HS 09/03/18 11/30/18 History calcium acetate 667 mg PO DAILY 09/03/18 11/30/18 History clonazepam 0.5 mg PO HS 09/03/18 11/30/18 History gabapentin 200 mg PO AMHS 09/03/18 11/30/18 History levothyroxine 75 mcg PO QAM 09/03/18 11/30/18 History multivitamin 1 tab PO QAM 09/03/18 11/30/18 History nitroglycerin [Nitrostat] 0.4 mg SUBLINGUAL DIRECTED PRN 09/03/18 11/30/18 History sertraline 100 mg PO HS 09/03/18 11/30/18 History acetaminophen 650 mg PO Q6H PRN 11/30/18 11/30/18 History albuterol sulfate [Ventolin HFA] 2 puff INHALATION Q4H PRN 11/30/18 11/30/18 History aspirin 81 mg PO QAM 11/30/18 11/30/18 History azithromycin 500 mg PO QAM 11/30/18 11/30/18 History bisacodyl 10 mg PO DIRECTED PRN 11/30/18 11/30/18 History clonazepam See Label Instructions .ROUTE 11/30/18 11/30/18 History .COMPLEX docusate sodium 100 mg PO Q12H PRN 11/30/18 11/30/18 History fentanyl 1 patch TRANSDERMAL Q72H 11/30/18 11/30/18 History glycerin (adult) 1 supp HI DAILY PRN 11/30/18 11/30/18 History guaifenesin 400 mg PO Q4H PRN 11/30/18 11/30/18 History hydrocodone-acetaminophen [[place]] 1 tab PO Q6H PRN 11/30/18 11/30/18 History midodrine 20 mg PO 3XWK 11/30/18 11/30/18 History midodrine See Label Instructions .ROUTE 11/30/18 11/30/18 History .COMPLEX ondansetron HCl 4 mg PO Q6H PRN 11/30/18 11/30/18 History polyethylene glycol 3350 17 g PO DAILY PRN 11/30/18 11/30/18 History prednisone See Label Instructions .ROUTE 11/30/18 11/30/18 History .COMPLEX ranitidine HCl 75 mg PO QAM 11/30/18 11/30/18 History Patient History Medical History History of fracture of left ankle 08/2018 ORIF trimalleolar fx Depression (Chronic) Left midfoot ulcer (Acute) Type 2 diabetes mellitus with diabetic neuropathy (Chronic) Acquired claw toe of right foot (Chronic) Acquired claw toe of left foot (Chronic) Ulcer of right midfoot (Acute) Diabetic retinopathy (Chronic) Paroxysmal atrial fibrillation (Chronic) TIA (transient ischemic attack) (Chronic) GERD (gastroesophageal reflux disease) (Chronic) Pulmonary hypertension (Chronic) Pulmonary embolism (Resolved) DM type 2 (diabetes mellitus, type 2) (Chronic) Chronic diastolic CHF (congestive heart failure) (Chronic) Nonischemic cardiomyopathy (Chronic) [place] treated with BiPAP (Chronic) Chronic respiratory failure with hypoxia (Chronic) Symptomatic bradycardia (Chronic) Pacemaker (Chronic) Hypertension (Chronic) Spinal stenosis (Chronic) Osteoarthritis (Chronic) Malignant melanoma (Chronic) Thrombocytopenia (Chronic) 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 Pt has been off coumadin since and not anticoagulation candidate ESRD (end stage renal disease) on dialysis (Chronic) Mitral regurgitation Surgical History H/O total hysterectomy (Chronic) S/P cholecystectomy (Chronic) S/P IVC filter (Chronic) AV fistula Pacemaker Family History Other Diabetes Social History marital status: Current Living Situation: Family Current Living Situation Comment: reports she lives in an apt, has caregivers Mon-Sat Feels Safe at Home: Yes Safety Concerns: Feels Safe At This Time Smoking Status: Former smoker Tobacco Type: cigarettes Hx Alcohol Use: No Hx Substance Use: No Beliefs That Will Affect Care: None Communication Ability: Effective Review of Systems Pertinent positives noted per HPI, comprehensive 10 system review otherwise negative. Physical Exam 2 Vital Signs (Past 24 Hours): Last Vital Signs Temp 36.5 C 12/01/18 11:53 Pulse 77 12/01/18 14:11 Resp 16 12/01/18 14:11 BP 91/57 L 12/01/18 11:53 Pulse Ox 95 12/01/18 14:11 Physical Exam: General: NAD, AAO x3, well nourished. Chronically ill. HEENT : Normocephalic. Atraumatic. Conjunctiva pink, no scleral icterus. Neck: No carotid bruits, the carotid upstrokes are brisk. No JVD. No HJR Heart: Regular normal S-1 and S-2 no S-3 or S-4 gallop. Soft, 1/6 systolic murmur heard best at the left sternal border. PMI is not displaced. No RV heave. Lungs: + Crackles at the bases bilaterally. No rhonchi or wheeze. Abdomen: Normal bowel sounds. Soft. Nontender. No masses or organomegaly. No abdominal bruits. Extremities: 2+ bilateral pretibial edema. Pulses: radial=2/4, Dorsalis pedis = 2/4.Neuro: Cranial nerves grossly intact. No focal motor deficit. Results & Data Laboratory Results Laboratory Results - last 24 hr 11/30/18 11/30/18 11/30/18 16:20 16:49 16:49 WBC 12.10 H RBC 3.69 L Hgb 11.6 L Hct 34.3 L MCV 93.0 MCH 31.4 MCHC 33.8 RDW Std Deviation 57.6 H RDW Coeff of Anatoly 17.5 H Plt Count 134 MPV 12.5 H Immature Gran % (Auto) 1.0 Neut % (Auto) 92.9 Lymph % (Auto) 3.0 [place] % (Auto) 3.0 Eos % (Auto) 0.0 Baso % (Auto) 0.1 Immature Gran # (Auto) 0.12 H Neut # (Auto) 11.25 H Lymph # (Auto) 0.36 L [place] # (Auto) 0.36 Eos # (Auto) 0.00 Baso # (Auto) 0.01 Absolute Nucleated RBC 0.17 H Nucleated RBC % (auto) 1.4 Platelet Estimate Decreased Polychromasia 1+ Basophilic Stippling Occasional Target Cells 1+ PT INR Sodium 133 L Potassium 4.4 Chloride 92 L Carbon Dioxide 32 Anion Gap 9.0 BUN 36 H Creatinine 3.19 H Est Cr Clr Drug Dosing Not Reportable Est GFR ( Amer) 15.7 Est GFR (Non-Af Amer) 13.5 BUN/Creatinine Ratio 11.3 Glucose 224 H POC Glucose Lactate Calcium 8.6 Magnesium 2.1 Total Bilirubin 1.8 H Direct Bilirubin AST 99 H ALT 77 Alkaline Phosphatase 396 H Troponin I 0.204 H* NT-Pro-B Natriuret Pep Total Protein 7.5 Albumin 3.5 Globulin 4.0 Albumin/Globulin Ratio 0.9 Procalcitonin TSH 2.750 Specimen Hemolysis Nasal Screen MRSA (PCR) Stool Occult Bld Scrn Influenza Type A Ag Neg for Influ A Influenza Type B Ag Neg for Influ B 11/30/18 11/30/18 11/30/18 16:49 21:23 21:24 WBC RBC Hgb Hct MCV MCH MCHC RDW Std Deviation RDW Coeff of Anatoly Plt Count MPV Immature Gran % (Auto) Neut % (Auto) Lymph % (Auto) [place] % (Auto) Eos % (Auto) Baso % (Auto) Immature Gran # (Auto) Neut # (Auto) Lymph # (Auto) [place] # (Auto) Eos # (Auto) Baso # (Auto) Absolute Nucleated RBC Nucleated RBC % (auto) Platelet Estimate Polychromasia Basophilic Stippling Target Cells PT INR Sodium Potassium Chloride Carbon Dioxide Anion Gap BUN Creatinine Est Cr Clr Drug Dosing Est GFR ( Amer) Est GFR (Non-Af Amer) BUN/Creatinine Ratio Glucose POC Glucose Lactate 2.8 H* Calcium Magnesium Total Bilirubin Direct Bilirubin 1.2 H AST ALT Alkaline Phosphatase Troponin I 0.207 H* NT-Pro-B Natriuret Pep > 63179 H Total Protein Albumin Globulin Albumin/Globulin Ratio Procalcitonin 1.94 H TSH Specimen Hemolysis Nasal Screen MRSA (PCR) Stool Occult Bld Scrn Influenza Type A Ag Influenza Type B Ag 11/30/18 11/30/18 11/30/18 21:45 22:10 23:21 WBC RBC Hgb Hct MCV MCH MCHC RDW Std Deviation RDW Coeff of Anatoly Plt Count MPV Immature Gran % (Auto) Neut % (Auto) Lymph % (Auto) [place] % (Auto) Eos % (Auto) Baso % (Auto) Immature Gran # (Auto) Neut # (Auto) Lymph # (Auto) [place] # (Auto) Eos # (Auto) Baso # (Auto) Absolute Nucleated RBC Nucleated RBC % (auto) Platelet Estimate Polychromasia Basophilic Stippling Target Cells PT INR Sodium Potassium Chloride Carbon Dioxide Anion Gap BUN Creatinine Est Cr Clr Drug Dosing Est GFR ( Amer) Est GFR (Non-Af Amer) BUN/Creatinine Ratio Glucose POC Glucose 249 H Lactate Calcium Magnesium Total Bilirubin Direct Bilirubin AST ALT Alkaline Phosphatase Troponin I NT-Pro-B Natriuret Pep Total Protein Albumin Globulin Albumin/Globulin Ratio Procalcitonin TSH Specimen Hemolysis Nasal Screen MRSA (PCR) Negative Stool Occult Bld Scrn Positive H Influenza Type A Ag Influenza Type B Ag 12/01/18 12/01/18 12/01/18 04:02 04:02 07:37 WBC RBC Hgb Hct MCV MCH MCHC RDW Std Deviation RDW Coeff of Anatoly Plt Count MPV Immature Gran % (Auto) Neut % (Auto) Lymph % (Auto) [place] % (Auto) Eos % (Auto) Baso % (Auto) Immature Gran # (Auto) Neut # (Auto) Lymph # (Auto) [place] # (Auto) Eos # (Auto) Baso # (Auto) Absolute Nucleated RBC Nucleated RBC % (auto) Platelet Estimate Polychromasia Basophilic Stippling Target Cells PT 13.9 H INR 1.4 H Sodium Potassium Chloride Carbon Dioxide Anion Gap BUN Creatinine Est Cr Clr Drug Dosing Est GFR ( Amer) Est GFR (Non-Af Amer) BUN/Creatinine Ratio Glucose POC Glucose 214 H Lactate Calcium Magnesium Total Bilirubin Direct Bilirubin AST ALT Alkaline Phosphatase Troponin I 0.222 H* NT-Pro-B Natriuret Pep Total Protein Albumin Globulin Albumin/Globulin Ratio Procalcitonin TSH Specimen Hemolysis Nasal Screen MRSA (PCR) Stool Occult Bld Scrn Influenza Type A Ag Influenza Type B Ag 12/01/18 12/01/18 12/01/18 07:38 07:38 07:38 WBC 10.95 H RBC 3.34 L Hgb 10.4 L Hct 31.3 L MCV 93.7 MCH 31.1 MCHC 33.2 RDW Std Deviation 58.4 H RDW Coeff of Anatoly 18.0 H Plt Count 120 L MPV 12.1 H Immature Gran % (Auto) 0.9 Neut % (Auto) 85.0 Lymph % (Auto) 6.2 [place] % (Auto) 7.4 Eos % (Auto) 0.4 Baso % (Auto) 0.1 Immature Gran # (Auto) 0.10 H Neut # (Auto) 9.31 H Lymph # (Auto) 0.68 L [place] # (Auto) 0.81 H Eos # (Auto) 0.04 Baso # (Auto) 0.01 Absolute Nucleated RBC 0.18 H Nucleated RBC % (auto) 1.6 Platelet Estimate Polychromasia Basophilic Stippling Target Cells 2+ PT INR Sodium 135 L Potassium 3.7 D Chloride 94 L Carbon Dioxide 31 Anion Gap 10.0 BUN 51 H Creatinine 4.06 H D Est Cr Clr Drug Dosing 10.9 Est GFR ( Amer) 11.7 Est GFR (Non-Af Amer) 10.1 BUN/Creatinine Ratio 12.4 Glucose 203 H POC Glucose Lactate 1.7 Calcium 8.1 L Magnesium 2.1 Total Bilirubin Direct Bilirubin AST ALT Alkaline Phosphatase Troponin I NT-Pro-B Natriuret Pep Total Protein Albumin Globulin Albumin/Globulin Ratio Procalcitonin TSH Specimen Hemolysis Nasal Screen MRSA (PCR) Stool Occult Bld Scrn Influenza Type A Ag Influenza Type B Ag 12/01/18 12/01/18 10:09 11:17 WBC RBC Hgb Hct MCV MCH MCHC RDW Std Deviation RDW Coeff of Anatoly Plt Count MPV Immature Gran % (Auto) Neut % (Auto) Lymph % (Auto) [place] % (Auto) Eos % (Auto) Baso % (Auto) Immature Gran # (Auto) Neut # (Auto) Lymph # (Auto) [place] # (Auto) Eos # (Auto) Baso # (Auto) Absolute Nucleated RBC Nucleated RBC % (auto) Platelet Estimate Polychromasia Basophilic Stippling Target Cells PT INR Sodium Potassium Chloride Carbon Dioxide Anion Gap BUN Creatinine Est Cr Clr Drug Dosing Est GFR ( Amer) Est GFR (Non-Af Amer) BUN/Creatinine Ratio Glucose POC Glucose 223 H Lactate Calcium Magnesium Total Bilirubin Direct Bilirubin AST ALT Alkaline Phosphatase Troponin I 0.264 H* NT-Pro-B Natriuret Pep Total Protein Albumin Globulin Albumin/Globulin Ratio Procalcitonin TSH Specimen Hemolysis Nasal Screen MRSA (PCR) Stool Occult Bld Scrn Influenza Type A Ag Influenza Type B Ag ECG Additional Comments: AV sequential pacemaker. Initial ECG demonstrates possible atrial undersensing.
[2018-12-01] MEDS ORDERED: PERFLUTREN LIPID MICROSPHERE (DEFINITY) IV ONE (15:20)
[2018-12-01] MEDS: ATORVASTATIN 40 MG TAB PO SCH (20:25)
[2018-12-01] MEDS: PIPERACILLIN/TAZOBACTAM 3.375 GM in DEXTROSE 5% 100 ML IV SCH (20:27)
[2018-12-01] MEDS: SERTRALINE HCL 100 MG TABLET PO SCH (20:27)
[2018-12-01] MEDS: clonazePAM 0.5 MG TAB PO SCH (20:36)
[2018-12-01] MEDS: HYDROCODONE/ACETAMOPHEN 5/325MG TAB PO PRN (20:37)
[2018-12-02] MEDS: CHECK FENTANYL PATCH PLACEMENT SCH ×10 (00:42→18:22)
[2018-12-02] MEDS: IPRATROPIUM BROMIDE NEB SOLN 0.02% 2.5 ML VIAL INH SCH ×4 (02:02→19:14)
[2018-12-02] MEDS: LEVALBUTEROL HCL 0.63 MG/3 ML NEB NEB SCH ×4 (02:02→19:14)
[2018-12-02] MEDS: LEVOTHYROXINE SODIUM 75 MCG TABLET PO SCH (05:26)
[2018-12-02 05:56] LABS: Estimated Average Glucose 146 mg/dl
[2018-12-02 07:56] LABS: Hematocrit (blood only) 32.7 % (37-47); Hemoglobin 10.8 g/dL (12.0-16.0); Mean Corpuscular Volume 94.5 fL (80-100); Mean Platelet Volume 12.4 fL (7.4-10.4); Nucleated RBC # (auto) 0.05 K/uL (0-0); Nucleated RBC % (auto) 0.5 %; Platelet Count 105 K/uL (130-400); RDW Coefficient of Variation 18.3 % (11.5-14.5); RDW Standard Deviation 58.7 fL (36.4-46.3); Red Blood Count 3.46 M/uL (4.2-5.4)
[2018-12-02 07:57] LABS: Eosinophils # (auto) 0.09 K/uL (0-0.5); Eosinophils % (auto) 0.9 %; Immature Granulocytes # (auto) 0.06 K/uL (0.00-0.02); Immature Granulocytes % (auto) 0.6 %; Lymphocytes # (auto) 0.69 K/uL (1.2-3.4); Lymphocytes % (auto) 7.3 %; Monocytes # (auto) 0.63 K/uL (0.11-0.59); Monocytes % (auto) 6.6 %; Neutrophils # (auto) 8.03 K/uL (1.4-6.5); Neutrophils % (auto) 84.6 %
[2018-12-02 07:58] LABS: Target Cells 2+
[2018-12-02 08:03] LABS: BUN Creatinine Ratio 12.9 (10-20); Calcium 8.1 mg/dl (8.5-10.1); Est GFR (African American) 9.4; Est GFR (Non-African American) 8.1; Magnesium 2.3 mg/dl (1.8-2.4); Phosphorus 5.5 mg/dl (2.5-4.9); Potassium 3.9 mmol/L (3.5-5.1)
[2018-12-02] MEDS ORDERED: SODIUM CHLORIDE 0.9% 1000ML 1,000 ML IV PRN (08:11)
[2018-12-02] MEDS ORDERED: MIDODRINE HCL 10 MG TAB PO SCH (08:30)
[2018-12-02] MEDS ORDERED: HEPARIN SOD (PORCINE) 1000 UNIT/ML 10 ML VIAL IV SCH (08:30)
[2018-12-02] MEDS: PIPERACILLIN/TAZOBACTAM 3.375 GM in DEXTROSE 5% 100 ML IV SCH ×2 (08:37→22:25)
[2018-12-02] MEDS: GABAPENTIN 100 MG CAP PO SCH ×2 (08:38→22:14)
[2018-12-02] MEDS: guaiFENesin 200 MG TAB PO PRN ×2 (08:38→18:23)
[2018-12-02] MEDS: predniSONE 10 MG TABLET PO SCH (08:38)
[2018-12-02] MEDS: AZITHROMYCIN 250 MG TAB PO SCH (08:39)
[2018-12-02] MEDS: ASPIRIN 81 MG ECTAB PO SCH (08:39)
[2018-12-02] MEDS: AMIODARONE 200 MG TAB PO SCH (08:39)
[2018-12-02] MEDS: MULTIVITAMIN TAB PO SCH (08:39)
[2018-12-02] MEDS: MIDODRINE HCL 10 MG TAB PO SCH (08:39)
[2018-12-02] MEDS: INSULIN GLARGINE SOLOSTAR 100 UNITS/ML 3 ML PEN SC SCH ×2 (08:40→22:15)
[2018-12-02] MEDS: NYSTATIN SUSP 500,000 U/5 ML UDC PO SCH ×4 (08:41→22:14)
[2018-12-02] MEDS: INSULIN ASPART 100 UNITS/ML 3 ML PEN SC SCH ×4 (08:42→22:16)
--- NOTE | 2018-12-02 09:34 | Pharmacy Report ---
Pharmacy Abx Dose Short Note - Date of Service December 02, 2018 - Assessment & Plan Assessment 73 year old F receiving vanc for treatment of SSTI. Received one 1500mg loading dose 11/30 @ 2304. Per nephrology note, next full HD not planned until 12/03. Random level this morning indicated no redosing necessary today, even if a short trial (1-2hrs) of HD is performed. Will order repeat random for tomorrow morning and reassess need for redosing after full HD. Day # 3 of antimicrobial therapy. Plan Vancomycin * Random level is 27.2 mcg/mL. * No redosing needed today * Random level ordered for: 12/03/18 AM labs Pharmacy will continue to follow and will adjust dose/frequency as necessary. Thank you.
[2018-12-02 09:58] LABS: Hepatitis B Surface Antibody Non-Immune
[2018-12-02 10:09] LABS: Hepatitis B Surface Antigen Neg (Neg)
--- NOTE | 2018-12-02 12:11 | Cardiology Progress Note ---
Date of Service December 02, 2018 Assessment & Plan (1) Elevated troponin I level: Multifactorial secondary to volume overload, decompensated right heart failure with severe pulmonary hypertension in the setting of end-stage renal disease and possible underlying upper respiratory tract infection/bronchitis. Plaque rupture event less likely. Volume management per hemodialysis. Follow H &H daily. Continue aspirin, statin, and amiodarone. (2) NICM (nonischemic cardiomyopathy): Echocardiogram demonstrates preserved LV systolic function with evidence of severe tricuspid regurgitation and severe pulmonary hypertension. Findings unchanged when compared to prior echocardiogram 01/2018. (3) Acute on chronic heart failure with reduced ejection fraction and diastolic dysfunction: Volume management with hemodialysis today. Edema improved with leg elevation. (4) Paroxysmal atrial fibrillation: Maintained in sinus rhythm with amiodarone. TSH within normal limits on admission. Elevated AST and bilirubin noted suspect secondary to hepatic congestion in the setting of chronic right-sided heart failure in addition to chronic amiodarone therapy. Patient is not a long-term anticoagulation candidate due to history of hemorrhagic pericarditis/tamponade. (5) Pulmonary hypertension: (6) Pacemaker: Pacemaker interrogation demonstrates atrial lead oversensing. Mode changed to DDIR. Subjective Patient seen and examined at the bedside. No chest discomfort overnight. Notes nonproductive cough. Receiving antibiotic therapy. Complains of diarrhea since admission. No orthopnea or PND. Edema improved with bedrest. Preliminary review of 2D echocardiogram demonstrates severe pulmonary hypertension with severe tricuspid regurgitation. No orthopnea or paroxysmal nocturnal dyspnea. Remains in sinus rhythm on telemetry. Pacemaker interrogation revealed atrial oversensing. Mode changed to DDIR. Review of Systems All systems reviewed & are unremarkable except as noted in HPI & below Physical Exam 2 Vital Signs (Past 24 Hours): Last Vital Signs Temp 36.8 C 12/02/18 08:19 Pulse 70 12/02/18 08:19 Resp 20 12/02/18 08:19 BP 89/55 L 12/02/18 08:19 Pulse Ox 93 12/02/18 11:42 Physical Exam: General: NAD, AAO x3, well nourished. Chronically ill. HEENT : Normocephalic. Atraumatic. Conjunctiva pink, no scleral icterus. Neck: No carotid bruits, the carotid upstrokes are brisk. Elevated jugular venous distention. Heart: Regular normal S-1 and S-2 no S-3 or S-4 gallop. No murmurs or rub appreciated. PMI is not displaced. No RV heave. Lungs: Crackles at the bases bilaterally. Abdomen: Normal bowel sounds. Soft. Nontender. No masses or organomegaly. No abdominal bruits. Extremities: 1+ bilateral pedal and pretibial edema. No clubbing or cyanosis. Pulses: radial=2/4, Dorsalis pedis =2/4, posterior tibial=2/4. Neuro: Cranial nerves grossly intact. No focal motor deficit.
[2018-12-02] MEDS: CALCIUM ACETATE 667 MG CAP PO SCH (12:14)
--- NOTE | 2018-12-02 13:52 | Hospitalist Progress Note ---
Date of Service December 02, 2018 Assessment & Plan (1) Shortness of breath: This is a 73 y/o F with PMH ESRD on HD (deo, inez, marcy), IDDM, PAF, hx of TIA, nonischemic cardiomyopathy, chronic diastolic CHF, pulmonary hypertension, obesity hypoventilation syndrome, EVERTON on bipap, hx of symptomatic bradycardia s /p pacemaker, H/O PE s/p IVC filter, hypothyroidism, depression who presents to [facility] ED secondary to shortness of breath and chest pain x 1 day -Shortness of breath is due to multifactorial causes including CHF, recent non- ST elevation NM, fluid overload secondary to renal failure. -Doubt NSTEMI -Cycle troponins-elevated likely contributed by end-stage renal disease -consult cardiology appreciate input and recommendation -Echocardiogram demonstrates preserved LV systolic function with evidence of severe tricuspid regurgitation and severe pulmonary hypertension. Findings unchanged when compared to prior echocardiogram 01/2018. -Continue current medical treatment (2) Elevated troponin: -plan as above -Elevated troponin is contributed by end-stage renal disease -We will not give any subcu heparin due to blood in the stool -Monitor hemoglobin (3) Chest pain: -plan as above-admitted with chest pain but denies any more pain since admission -Denies any more chest pain (4) Wound of left ankle: -s/p ORIF to L ankle 08/2018 -recently saw Ben Young PA-C in follow up who feels ankle is healing well -she is WBAT w/o need of assist device -Per BENIGNO Young note while in nursing facility she tested +for MRSA to wound therefore treated with course of bactrim due to concern for cellulitis; however at visit on 11/22/18 he felt Ankle/wound was healing well. -Has been on intravenous Zosyn and vancomycin for now -Wound culture has been negative -We will change antibiotic to oral and follow-up with wound care on discharge (5) Thrush: -nystatin swish and swallow QID (6) Elevated LFTs: - T bili 1.8, AST 99, ALT77, Alk Phos 396, check direct bili -while in [facility] LFTs mildly elevated, per family U/S of liver was done, no further work up as outpatient -will need to obtain records from [place] for further work up -back in 08/2018 LFT WNL -will monitor (7) CHF (congestive heart failure): -most recent echo 09/2018 EF 55-60%, diastolic dysfunction, RA dilated, pulm HTN -Echocardiogram demonstrates preserved LV systolic function with evidence of severe tricuspid regurgitation and severe pulmonary hypertension. Findings unchanged when compared to prior echocardiogram 01/2018. -does not appear to be volume overloaded at this time, given HD today -continue ASA, Statin -Continue hemodialysis (8) ESRD (end stage renal disease) on dialysis: -on HD //Sun -will consult nephrology -received full HD treatment today Areli Bradford -Continue hemodialysis as scheduled (9) Type 2 diabetes mellitus with diabetic neuropathy: -Last A1C 6.4 09/16/18 -repeat A1C -Lantus/Novolog per protocol, titrate accordingly (10) Paroxysmal atrial fibrillation: -pacemaker in place -not on any oral anticoagulation or rate control medications (11) Hypotension: -continue midodrine (12) GERD (gastroesophageal reflux disease): -prn ranitidine -currently asymptomatic (13) EVERTON treated with BiPAP: -bipap at HS (14) Thrombocytopenia: -Plt ct 134, monitor closely -on heparin Q12hr for vte prophylaxis (15) Hypothyroidism: -continue levothyroxine -TSH 2.95 today (16) QT prolongation: -avoid QT prolonging medications -add ativan prn for n/v (17) DVT prophylaxis: -heparin 5,000 units SQ q12 hr-discontinued due to blood in the stool -avoid SCD/TEDs given wound L ankle Disposition: to be determined, recently residing at SNF, consult case management Follow up: PCP Dr. Mo upon discharge (18) Melena: She has been having melanotic diarrhea since admit Hemoglobin is dropped to 10.4 from 11.5 on admit Will not give any intravenous heparin drip Monitor H&H-hemoglobin has not dropped Subjective She is a 73 y/o F with PMH ESRD on HD (, sun), IDDM, PAF, hx of TIA, nonischemic cardiomyopathy, chronic diastolic CHF, pulmonary hypertension, obesity hypoventilation syndrome, EVERTON on bipap, hx of symptomatic bradycardia s /p pacemaker, H/O PE s/p IVC filter, hypothyroidism, depression who presents to [facility] ED secondary to shortness of breath and chest pain x 1 day. 12/01 The patient was seen and examined in telemetry unit in presence of the family members She has been feeling a lot better and denies any significant symptoms Apparently she has been having melena without any abdominal pain nausea and vomiting Denies any more chest pain, shortness of breath and cough palpitation 12/02 The patient was seen and examined in telemetry unit She remains stable without any significant chest pain and/or abdominal pain She has generalized weakness but denies to any other symptoms Physical Exam 2 Vital Signs (Past 24 Hours): Last Vital Signs Temp 37.0 C 12/02/18 12:07 Pulse 72 12/02/18 12:07 Resp 16 12/02/18 12:07 BP 101/55 L 12/02/18 12:07 Pulse Ox 95 12/02/18 12:07 Physical Exam: Lying in bed comfortably Constitutional: WD/WN, vitals as above Eyes: PERRL, conjunctivae normal, anicteric sclerae ENMT: external ear and nose normal, oropharynx normal Respiratory: no respiratory distress Auscultation: + diminished lung sounds and + crackles (Minimal crackles both bases) Cardiovascular: Rate/Rhythm: regular rhythm and + tachycardic Heart Sounds : normal S1 and normal S2 Gastrointestinal (Abdomen): Inspection/Auscultation: abdomen normal to inspection and normal bowel sounds Percussion/Palpation: abdomen nontender and no guarding Musculoskeletal: Ankle: + ankle abnormal to inspection (Chronic skin changes with bruising) Skin: Has generalized bruising and chronic skin changes more in the extremities Neurologic: Alert awake and oriented, x3. Generally very weak and lethargy Results & Data Laboratory Results Short CBC 12/02/18 Range/Units 06:45 WBC 9.50 (4.8-10.8) K/uL Hgb 10.8 L (12.0-16.0) g/dL Hct 32.7 L (37-47) % Plt Count 105 L (130-400) K/uL BMP 12/02/18 06:45 Sodium 135 L Potassium 3.9 Chloride 95 L Carbon Dioxide 31 BUN 63 H Creatinine 4.86 H* D Glucose 125 H Calcium 8.1 L Medications Administered Current Inpatient Medications Acetaminophen (Tylenol) 650 mg PO Q6H PRN PRN Reason: Fever Or Pain Stop: 12/30/18 20:58 Hydrocodone Bitart/Acetaminophen (Benton 5/325) 1 tab PO Q6H PRN PRN Reason: Pain Stop: 12/14/18 20:58 Last Admin: 12/01/18 20:37 Dose: 1 tab Al Hydrox/Mg Hydrox/Simethicone (Maalox) 15 ml PO Q4H PRN PRN Reason: Dyspepsia Stop: 12/30/18 20:58 Albuterol (Ventolin Hfa) 2 puffs INH Q4H PRN PRN Reason: Wheezing Stop: 12/30/18 20:58 Amiodarone HCl (Cordarone) 200 mg PO [facility] Stop: 12/31/18 08:59 Last Admin: 12/02/18 08:39 Dose: 200 mg Aspirin (Ecotrin Ectab) 81 mg PO [facility] Stop: 12/31/18 08:59 Last Admin: 12/02/18 08:39 Dose: 81 mg Atorvastatin Calcium (Lipitor) 40 mg PO [facility] Stop: 12/30/18 20:59 Last Admin: 12/01/18 20:25 Dose: 40 mg Azithromycin (Zithromax) 250 mg PO [facility] Stop: 12/04/18 09:01 Last Admin: 12/02/18 08:39 Dose: 250 mg Calcium Acetate (Phoslo) 667 mg PO DAILY@1200 [facility] Stop: 12/31/18 11:59 Last Admin: 12/02/18 12:14 Dose: 667 mg Clonazepam (Klonopin) 0.5 mg PO [facility] Stop: 12/30/18 20:59 Last Admin: 12/01/18 20:36 Dose: 0.5 mg Clonazepam (Klonopin) 0.5 mg PO TuThSa@1000 [facility] Stop: 01/02/19 09:59 Dextrose (Dextrose 50%) 25 - 50 ml IV UD PRN; Protocol PRN Reason: Hypoglycemia Protocol Stop: 12/30/18 20:58 Docusate Sodium (Colace) 100 mg PO Q12H PRN PRN Reason: Constipation Stop: 12/30/18 20:58 Fentanyl (Duragesic) 12 mcg TD Q3D [facility] Stop: 12/15/18 08:59 Last Admin: 12/01/18 08:58 Dose: 12 mcg Fentanyl (Duragesic) 25 mcg TD Q3D [facility] Stop: 12/15/18 08:59 Last Admin: 12/01/18 08:59 Dose: 25 mcg Gabapentin (Neurontin) 200 mg PO [facility] Stop: 12/30/18 20:59 Last Admin: 12/02/18 08:38 Dose: 200 mg Glucagon (Glucagen) 1 mg SQ UD PRN; Protocol PRN Reason: Hypoglycemia Protocol Stop: 12/30/18 20:58 Glucose (Glucose 40%) 15 - 30 gm PO UD PRN; Protocol PRN Reason: Hypoglycemia Protocol Stop: 12/30/18 20:58 Glucose (Dex4 Glucose) 4 - 8 tabs PO UD PRN; Protocol PRN Reason: Hypoglycemia Protocol Stop: 12/30/18 20:58 Guaifenesin (Organidin Nr) 400 mg PO Q4H PRN PRN Reason: Cough Last Admin: 12/02/18 08:38 Dose: 400 mg Heparin Sodium (Porcine) (Heparin Iv Bolus) 1,000 units IV TODAY@0830 [facility] Stop: 12/02/18 14:10 Heparin Sodium (Porcine) (Heparin Iv Bolus) 400 units IV TODAY@0900,1000,1100 [facility] Stop: 12/02/18 14:10 Lorazepam (Ativan) 0.25 mg in 0.5 mls @ 0.5 mls/min IV Q4H PRN PRN Reason: Nausea And Vomiting Stop: 12/30/18 21:07 Piperacillin Sod/Tazobactam (Sod 3.375 gm/ Dextrose) 115 mls @ 28.75 mls/hr IV Q12H [facility]; Protocol Stop: 12/11/18 08:59 Last Infusion: 12/02/18 12:37 Dose: Infused Sodium Chloride (Nss 1000ml) 1,000 mls @ 0 mls/hr IV .Q0M PRN PRN Reason: For Hemodialysis Use ONLY Stop: 12/02/18 14:10 Insulin Aspart (Novolog Flexpen) 0 units SC ACHS [facility] Stop: 12/30/18 20:59 Last Admin: 12/02/18 12:13 Dose: 7 units Insulin Glargine (Lantus Solostar Pen) 5 units SC Q12H [facility] Stop: 12/30/18 20:59 Last Admin: 12/02/18 08:40 Dose: 5 units Ipratropium [place] (Atrovent 0.02% 0.5mg/2.5ml) 0.5 mg INH Q6R [facility] Stop: 12/31/18 01:59 Last Admin: 12/02/18 07:09 Dose: 0.5 mg Levalbuterol HCl (Xopenex 0.63 Mg/3 Ml Neb) 0.63 mg NEB Q6R [facility] Stop: 12/31/18 01:59 Last Admin: 12/02/18 07:09 Dose: 0.63 mg Levothyroxine Sodium (Synthroid) 75 mcg PO DAILYBB [facility] Stop: 12/31/18 06:29 Last Admin: 12/02/18 05:26 Dose: 75 mcg Magnesium Hydroxide (Milk Of Magnesia) 30 ml PO Q12H PRN PRN Reason: Constipation Stop: 12/30/18 20:58 Midodrine (Proamatine) 20 mg PO TuThSa@1000 [facility] Stop: 01/02/19 09:59 Midodrine (Proamatine) 10 mg PO MoWeFr@0900 [facility] Stop: 01/01/19 08:59 Last Admin: 12/02/18 08:39 Dose: 10 mg Midodrine (Proamatine) 20 mg PO TODAY@0830 [facility] Stop: 12/02/18 14:10 Last Admin: 12/02/18 13:39 Dose: 20 mg Miscellaneous (Carbohydrates For Hypoglycemia) 15 - 30 gm PO UD PRN PRN Reason: Hypoglycemia Treatment Stop: 12/30/18 20:58 Miscellaneous (Fentanyl Patch Remove & Waste) 1 ea N/A Q72H [facility] Stop: 01/03/19 08:58 Last Admin: 12/01/18 09:10 Dose: 2 ea Miscellaneous (Fentanyl Patch Remove & Waste) 1 ea N/A Q72H [facility] Stop: 01/03/19 08:58 Miscellaneous (Fentanyl Patch Check Placement) 1 ea N/A QS [facility] Stop: 12/31/18 07:59 Last Admin: 12/02/18 08:40 Dose: 1 ea Miscellaneous (Fentanyl Patch Check Placement) 1 ea N/A QS [facility] Stop: 12/31/18 07:59 Last Admin: 12/02/18 08:40 Dose: 1 ea Miscellaneous Information (Consult) 1 ea N/A UD PRN PRN Reason: Consult Stop: 12/30/18 21:53 Miscellaneous Information (Consult) 1 ea N/A UD PRN PRN Reason: Consult Stop: 12/30/18 22:16 Multivitamins (Multivitamin Tab) 1 tab PO QAM [facility] Stop: 12/31/18 08:59 Last Admin: 12/02/18 08:39 Dose: 1 tab Nitroglycerin (Nitrostat) 0.4 mg SL PRN PRN PRN Reason: Chest Pain Stop: 12/30/18 20:58 Nystatin (Mycostatin) 10 ml PO QID [facility] Stop: 12/31/18 08:59 Last Admin: 12/02/18 12:14 Dose: 10 ml Nystatin (Mycostatin) 1 appln EXT BID PRN PRN Reason: Affected Skin Folds Stop: 12/31/18 10:25 Last Admin: 12/02/18 12:13 Dose: 1 appln Polyethylene Glycol (Miralax Powder Packet) 17 gm PO DAILY PRN PRN Reason: Constipation Stop: 12/30/18 20:58 Prednisone (Prednisone) 30 mg PO QAM [facility]; Taper Stop: 12/10/18 08:59 Last Admin: 12/02/18 08:38 Dose: 30 mg Ranitidine HCl (Zantac) 75 mg PO QAM [facility] Stop: 12/31/18 08:59 Last Admin: 12/02/18 08:38 Dose: 75 mg Sertraline HCl (Zoloft) 100 mg PO [facility] Stop: 12/30/18 20:59 Last Admin: 12/01/18 20:27 Dose: 100 mg _ (1) Chest pain Chest pain type: unspecified Ischemic chest pain type: Qualified Code(s): R07.9 - Chest pain, unspecified (2) Wound of left ankle Encounter type: sequela Qualified Code(s): S91.002S - Unspecified open wound , left ankle, sequela (3) CHF (congestive heart failure) Heart failure chronicity: unspecified Heart failure type: unspecified Qualified Code(s): I50.9 - Heart failure, unspecified (4) Type 2 diabetes mellitus with diabetic neuropathy 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
[2018-12-02] MEDS: HEPARIN SOD (PORCINE) 1000 UNIT/ML 10 ML VIAL IV SCH ×2 (15:25→15:26)
[2018-12-02] MEDS: HYDROCODONE/ACETAMOPHEN 5/325MG TAB PO PRN (17:19)
--- NOTE | 2018-12-02 17:30 | Nephrology Progress Note ---
Date of Service December 02, 2018 Assessment & Plan (1) ESRD (end stage renal disease) on dialysis: -short HD today 2 h w/ 1.2 L uf max to optimive respiratory status -plan next full hd via avf on 12/03 -she has some fluid on board, michael in abdomen; will be difficult to be clear how much is fluid, how much is infection/inflammation in lungs (2) Hypotension: on midodrine w/ HD; her sbp seems to run 80-90s at baseline; she is at baseline (3) Melena: -hgb steady and did use mini heparin w/ hd -daily cbc -follow OP routine for anemia mgt on ESRD Subjective seen on rounds this am 0725. eating heartily. feels ascites baseline. still very thick cough. trace edema. Physical Exam 2 Vital Signs (Past 24 Hours): Last Vital Signs Temp 36.7 C 12/02/18 16:53 Pulse 82 12/02/18 16:53 Resp 16 12/02/18 16:53 BP 107/68 12/02/18 16:53 Pulse Ox 98 12/02/18 16:53 Constitutional: well developed, well nourished and + frail appearing on 02nc 2L, eating heartily, thick cough in exam Eyes: EOM intact bilaterally ENMT: Ears: no external ear abnormality Nose: no external nose abnormality Mouth: + dry oral mucous membranes Neck: no nuchal rigidity Respiratory: normal respiratory effort Auscultation: + diminished lung sounds and + crackles (bl bases) Cardiovascular: Rate/Rhythm: regular rate and regular rhythm Heart Sounds: + murmur Extremities: + edema (trace BL) and + AV fistula (LUE + t/b) Gastrointestinal (Abdomen): Inspection/Auscultation: normal bowel sounds Percussion/Palpation: abdomen soft and + ascites; abdomen nontender Musculoskeletal: Extremities: strength 5/5 throughout Skin: no rashes, warm and dry Psychiatric: A+Ox3, euthymic affect Eye Contact: good eye contact Speech : normal rate/rhythm/volume of speech Results & Data Laboratory Results Abnormal lab results 12/01/18 12/01/18 12/02/18 Range/Units 04:02 20:00 06:45 RBC 3.46 L (4.2-5.4) M/uL Hgb 10.8 L (12.0-16.0) g/dL Hct 32.7 L (37-47) % RDW Std Deviation 58.7 H (36.4-46.3) fL RDW Coeff of Anatoly 18.3 H (11.5-14.5) % Plt Count 105 L (130-400) K/uL MPV 12.4 H (7.4-10.4) fL Immature Gran # (Auto) 0.06 H (0.00-0.02) K/uL Neut # (Auto) 8.03 H (1.4-6.5) K/uL Lymph # (Auto) 0.69 L (1.2-3.4) K/uL [place] # (Auto) 0.63 H (0.11-0.59) K/uL Absolute Nucleated RBC 0.05 H (0-0) K/uL Sodium (136-145) mmol/L Chloride (98-107) mmol/L BUN (7-18) mg/dl Creatinine (0.6-1.2) mg/dl Glucose (70-99) mg/dl POC Glucose 187 H (70-99) Hemoglobin A1c 6.7 H (4.5-5.6) % Calcium (8.5-10.1) mg/dl Phosphorus (2.5-4.9) mg/dl Hep Bs Antibody, Quant (>or=10mIU/mL Immune) mIU/mL 12/02/18 12/02/18 12/02/18 Range/Units 06:45 06:45 07:21 RBC (4.2-5.4) M/uL Hgb (12.0-16.0) g/dL Hct (37-47) % RDW Std Deviation (36.4-46.3) fL RDW Coeff of Anatoly (11.5-14.5) % Plt Count (130-400) K/uL MPV (7.4-10.4) fL Immature Gran # (Auto) (0.00-0.02) K/uL Neut # (Auto) (1.4-6.5) K/uL Lymph # (Auto) (1.2-3.4) K/uL [place] # (Auto) (0.11-0.59) K/uL Absolute Nucleated RBC (0-0) K/uL Sodium 135 L (136-145) mmol/L Chloride 95 L (98-107) mmol/L BUN 63 H (7-18) mg/dl Creatinine 4.86 H* D (0.6-1.2) mg/dl Glucose 125 H (70-99) mg/dl POC Glucose 127 H (70-99) Hemoglobin A1c (4.5-5.6) % Calcium 8.1 L (8.5-10.1) mg/dl Phosphorus 5.5 H (2.5-4.9) mg/dl Hep Bs Antibody, Quant < 3.10 L (>or=10mIU/mL Immune) mIU/mL 12/02/18 12/02/18 Range/Units 11:42 16:47 RBC (4.2-5.4) M/uL Hgb (12.0-16.0) g/dL Hct (37-47) % RDW Std Deviation (36.4-46.3) fL RDW Coeff of Anatoly (11.5-14.5) % Plt Count (130-400) K/uL MPV (7.4-10.4) fL Immature Gran # (Auto) (0.00-0.02) K/uL Neut # (Auto) (1.4-6.5) K/uL Lymph # (Auto) (1.2-3.4) K/uL [place] # (Auto) (0.11-0.59) K/uL Absolute Nucleated RBC (0-0) K/uL Sodium (136-145) mmol/L Chloride (98-107) mmol/L BUN (7-18) mg/dl Creatinine (0.6-1.2) mg/dl Glucose (70-99) mg/dl POC Glucose 237 H 132 H (70-99) Hemoglobin A1c (4.5-5.6) % Calcium (8.5-10.1) mg/dl Phosphorus (2.5-4.9) mg/dl Hep Bs Antibody, Quant (>or=10mIU/mL Immune) mIU/mL _ (1) Hypotension Hypotension type: hemodialysis-associated hypotension Trimester: Qualified Code(s): I95.3 - Hypotension of hemodialysis
[2018-12-02] MEDS: clonazePAM 0.5 MG TAB PO SCH (22:13)
[2018-12-02] MEDS: ATORVASTATIN 40 MG TAB PO SCH (22:13)
[2018-12-02] MEDS: SERTRALINE HCL 100 MG TABLET PO SCH (22:14)
[2018-12-03] MEDS: HYDROCODONE/ACETAMOPHEN 5/325MG TAB PO PRN ×3 (00:26→22:41)
[2018-12-03] MEDS: CHECK FENTANYL PATCH PLACEMENT SCH ×8 (00:32→23:26)
[2018-12-03] MEDS: IPRATROPIUM BROMIDE NEB SOLN 0.02% 2.5 ML VIAL INH SCH ×4 (01:48→19:26)
[2018-12-03] MEDS: LEVALBUTEROL HCL 0.63 MG/3 ML NEB NEB SCH ×4 (01:48→19:26)
[2018-12-03] MEDS: LEVOTHYROXINE SODIUM 75 MCG TABLET PO SCH (05:35)
[2018-12-03 07:05] LABS: Hematocrit (blood only) 32.5 % (37-47); Hemoglobin 10.6 g/dL (12.0-16.0); Mean Corpuscular Hgb Conc 32.6 g/dL (32-36); Mean Corpuscular Volume 95.3 fL (80-100); Nucleated RBC # (auto) 0.06 K/uL (0-0); Nucleated RBC % (auto) 0.7 %; RDW Standard Deviation 61.1 fL (36.4-46.3); Red Blood Count 3.41 M/uL (4.2-5.4); White Blood Count 8.64 K/uL (4.8-10.8)
[2018-12-03 07:08] LABS: Mean Platelet Volume 11.4 fL (7.4-10.4); Platelet Count 88 K/uL (130-400)
[2018-12-03 07:27] LABS: Basophils # (auto) 0.01 K/uL (0-0.2); Basophils % (auto) 0.1 %; Eosinophils # (auto) 0.05 K/uL (0-0.5); Eosinophils % (auto) 0.6 %; Immature Granulocytes # (auto) 0.05 K/uL (0.00-0.02); Immature Granulocytes % (auto) 0.6 %; Lymphocytes # (auto) 0.58 K/uL (1.2-3.4); Lymphocytes % (auto) 6.7 %; Monocytes # (auto) 0.68 K/uL (0.11-0.59); Monocytes % (auto) 7.9 %; Neutrophils # (auto) 7.27 K/uL (1.4-6.5); Neutrophils % (auto) 84.1 %; Target Cells 1+
[2018-12-03 07:39] LABS: Albumin Level 2.8 gm/dl (3.4-5.0); BUN Creatinine Ratio 10.9 (10-20); Calcium 8.2 mg/dl (8.5-10.1); Est GFR (African American) 10.7; Est GFR (Non-African American) 9.2; Magnesium 2.2 mg/dl (1.8-2.4); Potassium 3.7 mmol/L (3.5-5.1)
[2018-12-03 07:42] LABS: Albumin Globulin Ratio 0.8 (0.9-2); Bilirubin,Total 1.4 mg/dl (0.2-1); Globulin 3.7 gm/dl (2.5-4.0); Total Protein 6.5 gm/dl (6.4-8.2)
[2018-12-03] MEDS ORDERED: SODIUM CHLORIDE 0.9% 1000ML 1,000 ML IV PRN (08:16)
[2018-12-03] MEDS ORDERED: HEPARIN SOD (PORCINE) 1000 UNIT/ML 10 ML VIAL IV SCH (08:30)
[2018-12-03] MEDS: MULTIVITAMIN TAB PO SCH (08:48)
[2018-12-03] MEDS: AMIODARONE 200 MG TAB PO SCH (08:48)
[2018-12-03] MEDS: predniSONE 10 MG TABLET PO SCH (08:48)
[2018-12-03] MEDS: ASPIRIN 81 MG ECTAB PO SCH (08:49)
[2018-12-03] MEDS: NYSTATIN SUSP 500,000 U/5 ML UDC PO SCH ×4 (08:50→20:16)
[2018-12-03] MEDS: GABAPENTIN 100 MG CAP PO SCH ×2 (08:50→20:16)
[2018-12-03] MEDS: INSULIN GLARGINE SOLOSTAR 100 UNITS/ML 3 ML PEN SC SCH ×2 (08:52→21:50)
[2018-12-03] MEDS: AZITHROMYCIN 250 MG TAB PO SCH (08:53)
[2018-12-03] MEDS: INSULIN ASPART 100 UNITS/ML 3 ML PEN SC SCH ×4 (08:57→21:50)
[2018-12-03] MEDS: guaiFENesin 200 MG TAB PO PRN (08:58)
[2018-12-03] MEDS: HEPARIN SOD (PORCINE) 1000 UNIT/ML 10 ML VIAL IV SCH ×2 (09:51→11:13)
[2018-12-03] MEDS ORDERED: MIDODRINE HCL 2.5 MG TAB PO SCH (10:00)
[2018-12-03] MEDS ORDERED: clonazePAM 0.5 MG TAB PO SCH (10:00)
--- NOTE | 2018-12-03 13:03 | Hospitalist Progress Note ---
Date of Service December 03, 2018 Assessment & Plan (1) Shortness of breath: This is a 73 y/o F with PMH ESRD on HD (rachide, inez, sat), IDDM, PAF, hx of TIA, nonischemic cardiomyopathy, chronic diastolic CHF, pulmonary hypertension, obesity hypoventilation syndrome, EVERTON on bipap, hx of symptomatic bradycardia s /p pacemaker, H/O PE s/p IVC filter, hypothyroidism, depression who presents to [facility] ED secondary to shortness of breath and chest pain x 1 day -Shortness of breath is due to multifactorial causes including CHF, recent non- ST elevation [place], fluid overload secondary to renal failure. -Doubt NSTEMI -Cycle troponins-elevated likely contributed by end-stage renal disease -consult cardiology appreciate input and recommendation -Echocardiogram demonstrates preserved LV systolic function with evidence of severe tricuspid regurgitation and severe pulmonary hypertension. Findings unchanged when compared to prior echocardiogram 01/2018. -Continue current medical treatment -Denies any cardiac symptoms -Continue current cardiac medications (2) Elevated troponin: -plan as above -Elevated troponin is contributed by end-stage renal disease -We will not give any subcu heparin due to blood in the stool -No ACS (3) Chest pain: -plan as above-admitted with chest pain but denies any more pain since admission -Denies any more chest pain -Resolved (4) Wound of left ankle: -s/p ORIF to L ankle 08/2018 -recently saw Ben Young PA-C in follow up who feels ankle is healing well -she is WBAT w/o need of assist device -Per BENIGNO Young note while in nursing facility she tested +for MRSA to wound therefore treated with course of bactrim due to concern for cellulitis; however at visit on 11/22/18 he felt Ankle/wound was healing well. -Has been on intravenous Zosyn and vancomycin for now -Wound culture has been negative -We will change antibiotic to oral and follow-up with wound care on discharge -Appreciate wound care provider input and recommendation -Wound culture has been negative -We will discontinue intravenous antibiotics and to give oral Augmentin for about 2 weeks in total -Augmentin 500 mg p.o. daily every 24 hours 3 additional dose after each dialysis (5) Thrush: -nystatin swish and swallow QID (6) Elevated LFTs: - T bili 1.8, AST 99, ALT77, Alk Phos 396, check direct bili -while in [place] hospital LFTs mildly elevated, per family U/S of liver was done, no further work up as outpatient -will need to obtain records from [place] for further work up -back in 08/2018 LFT WNL -will monitor (7) CHF (congestive heart failure): -Has chronic systolic and diastolic heart failure and was present on admission -most recent echo 09/2018 EF 55-60%, diastolic dysfunction, RA dilated, pulm HTN -Echocardiogram demonstrates preserved LV systolic function with evidence of severe tricuspid regurgitation and severe pulmonary hypertension. Findings unchanged when compared to prior echocardiogram 01/2018. -does not appear to be volume overloaded at this time, given HD today -continue ASA, Statin -Continue hemodialysis (8) ESRD (end stage renal disease) on dialysis: -on HD //Sun -will consult nephrology -received full HD treatment today [facility] -Continue hemodialysis as scheduled (9) Type 2 diabetes mellitus with diabetic neuropathy: -Last A1C 6.4 09/16/18 -repeat A1C -Lantus/Novolog per protocol, titrate accordingly (10) Paroxysmal atrial fibrillation: -pacemaker in place -not on any oral anticoagulation or rate control medications (11) Hypotension: -continue midodrine (12) GERD (gastroesophageal reflux disease): -prn ranitidine -currently asymptomatic (13) EVERTON treated with BiPAP: -bipap at HS (14) Thrombocytopenia: -Plt ct 134, monitor closely -on heparin Q12hr for vte prophylaxis (15) Hypothyroidism: -continue levothyroxine -TSH 2.95 today (16) QT prolongation: -avoid QT prolonging medications -add ativan prn for n/v (17) DVT prophylaxis: -heparin 5,000 units SQ q12 hr-discontinued due to blood in the stool -avoid SCD/TEDs given wound L ankle Disposition: to be determined, recently residing at [facility], consult case management Follow up: PCP Dr. Mo upon discharge (18) Melena: She has been having melanotic diarrhea since admit Hemoglobin is dropped to 10.4 from 11.5 on admit Will not give any intravenous heparin drip Monitor H&H-hemoglobin has not dropped Hemoglobin remains stable Likely to go home tomorrow with home health Subjective She is a 73 y/o F with PMH ESRD on HD (tue, thur, sat), IDDM, PAF, hx of TIA, nonischemic cardiomyopathy, chronic diastolic CHF, pulmonary hypertension, obesity hypoventilation syndrome, EVERTON on bipap, hx of symptomatic bradycardia s /p pacemaker, H/O PE s/p IVC filter, hypothyroidism, depression who presents to [facility] ED secondary to shortness of breath and chest pain x 1 day. 12/01 The patient was seen and examined in telemetry unit in presence of the family members She has been feeling a lot better and denies any significant symptoms Apparently she has been having melena without any abdominal pain nausea and vomiting Denies any more chest pain, shortness of breath and cough palpitation 12/02 The patient was seen and examined in telemetry unit She remains stable without any significant chest pain and/or abdominal pain She has generalized weakness but denies to any other symptoms 12/03 The patient was seen and examined in telemetry unit She has been feeling generalized weakness and do not feel like going home today Denies any significant symptoms Denies any chest pain, shortness of breath palpitation,, no nausea and/or vomiting or any pain in legs Physical Exam 2 Vital Signs (Past 24 Hours): Last Vital Signs Temp 37.0 C 12/03/18 09:25 Pulse 70 12/03/18 12:45 Resp 18 12/03/18 07:50 BP 74/41 L 12/03/18 12:45 Pulse Ox 95 12/03/18 07:50 Constitutional: WD/WN, vitals as above Eyes: PERRL, conjunctivae normal, anicteric sclerae ENMT: external ear and nose normal, oropharynx normal Respiratory: no respiratory distress Auscultation: + diminished lung sounds and + crackles (Minimal crackles both bases) Cardiovascular: Rate/Rhythm: regular rhythm and + tachycardic Heart Sounds : normal S1 and normal S2 Gastrointestinal (Abdomen): Inspection/Auscultation: abdomen normal to inspection and normal bowel sounds Percussion/Palpation: abdomen nontender and no guarding Musculoskeletal: Ankle: + ankle abnormal to inspection (Chronic skin changes with bruising) Skin: Please see the picture of the wound. No surrounding inflammation and/ or infection Neurologic: Alert, awake and oriented x3. Generally weak Results & Data Laboratory Results Short CBC 12/03/18 Range/Units 06:55 WBC 8.64 (4.8-10.8) K/uL Hgb 10.6 L (12.0-16.0) g/dL Hct 32.5 L (37-47) % Plt Count 88 L (130-400) K/uL BMP 12/03/18 06:55 Sodium 133 L Potassium 3.7 Chloride 93 L Carbon Dioxide 27 BUN 48 H Creatinine 4.39 H D Glucose 193 H Calcium 8.2 L Liver Function 12/03/18 Range/Units 06:55 Total Bilirubin 1.4 H (0.2-1) mg/dl AST 76 H (15-37) U/L ALT 64 (12-78) U/L Alkaline Phosphatase 252 H (45-117) U/L Albumin 2.8 L (3.4-5.0) gm/dl Medications Administered Current Inpatient Medications Acetaminophen (Tylenol) 650 mg PO Q6H PRN PRN Reason: Fever Or Pain Stop: 12/30/18 20:58 Last Admin: 12/03/18 09:08 Dose: 650 mg Hydrocodone Bitart/Acetaminophen (Gamerco 5/325) 1 tab PO Q6H PRN PRN Reason: Pain Stop: 12/14/18 20:58 Last Admin: 12/03/18 06:21 Dose: 1 tab Al Hydrox/Mg Hydrox/Simethicone (Maalox) 15 ml PO Q4H PRN PRN Reason: Dyspepsia Stop: 12/30/18 20:58 Albuterol (Ventolin Hfa) 2 puffs INH Q4H PRN PRN Reason: Wheezing Stop: 12/30/18 20:58 Amiodarone HCl (Cordarone) 200 mg PO QAM [facility] Stop: 12/31/18 08:59 Last Admin: 12/03/18 08:48 Dose: 200 mg Amoxicillin/Clavulanate Potassium (Augmentin 500mg) 1 tab PO DAILY [facility] Stop: 12/14/18 08:59 Amoxicillin/Clavulanate Potassium (Augmentin 500mg) 1 tab PO TuThSa@1600 [facility] Stop: 12/15/18 15:59 Aspirin (Ecotrin Ectab) [facility] [place] Stop: 12/31/18 08:59 Last Admin: 12/03/18 08:49 Dose: 81 mg Atorvastatin Calcium (Lipitor) 40 mg PO HS [facility] Stop: 12/30/18 20:59 Last Admin: 12/02/18 22:13 Dose: 40 mg Calcium Acetate (Phoslo) 667 mg PO DAILY@1200 [facility] Stop: 12/31/18 11:59 Last Admin: 12/03/18 13:46 Dose: 667 mg Clonazepam (Klonopin) 0.5 mg PO HS [facility] Stop: 12/30/18 20:59 Last Admin: 12/02/18 22:13 Dose: 0.5 mg Clonazepam (Klonopin) 0.5 mg PO TuThSa@1000 [facility] Stop: 01/02/19 09:59 Last Admin: 12/03/18 09:03 Dose: 0.5 mg Collagenase (Santyl) 1 appln EXT DAILY [facility] Stop: 01/02/19 12:44 Last Admin: 12/03/18 14:34 Dose: 1 appln Dextrose (Dextrose 50%) 25 - 50 ml IV UD PRN; Protocol PRN Reason: Hypoglycemia Protocol Stop: 12/30/18 20:58 Docusate Sodium (Colace) 100 mg PO Q12H PRN PRN Reason: Constipation Stop: 12/30/18 20:58 Fentanyl (Duragesic) 12 mcg TD Q3D [facility] Stop: 12/15/18 08:59 Last Admin: 12/01/18 08:58 Dose: 12 mcg Fentanyl (Duragesic) 25 mcg TD Q3D [facility] Stop: 12/15/18 08:59 Last Admin: 12/01/18 08:59 Dose: 25 mcg Gabapentin (Neurontin) 200 mg PO AMHS [facility] Stop: 12/30/18 20:59 Last Admin: 12/03/18 08:50 Dose: 200 mg Glucagon (Glucagen) 1 mg SQ UD PRN; Protocol PRN Reason: Hypoglycemia Protocol Stop: 12/30/18 20:58 Glucose (Glucose 40%) 15 - 30 gm PO UD PRN; Protocol PRN Reason: Hypoglycemia Protocol Stop: 12/30/18 20:58 Glucose (Dex4 Glucose) 4 - 8 tabs PO UD PRN; Protocol PRN Reason: Hypoglycemia Protocol Stop: 12/30/18 20:58 Guaifenesin (Organidin Nr) 400 mg PO Q4H PRN PRN Reason: Cough Last Admin: 12/03/18 08:58 Dose: 400 mg Heparin Sodium (Porcine) (Heparin Iv Bolus) 1,000 units IV TODAY@0830 [facility] Stop: 12/03/18 18:00 Last Admin: 12/03/18 09:51 Dose: Not Given Lorazepam (Ativan) 0.25 mg in 0.5 mls @ 0.5 mls/min IV Q4H PRN PRN Reason: Nausea And Vomiting Stop: 12/30/18 21:07 Insulin Aspart (Novolog Flexpen) 0 units SC ACHS [facility] Stop: 12/30/18 20:59 Last Admin: 12/03/18 08:57 Dose: 6 units Insulin Glargine (Lantus Solostar Pen) 5 units SC Q12H [facility] Stop: 12/30/18 20:59 Last Admin: 12/03/18 08:52 Dose: 5 units Ipratropium Latexo (Atrovent 0.02% 0.5mg/2.5ml) 0.5 mg INH Q6R [facility] Stop: 12/31/18 01:59 Last Admin: 12/03/18 14:08 Dose: 0.5 mg Levalbuterol HCl (Xopenex 0.63 Mg/3 Ml Neb) 0.63 mg NEB Q6R [facility] Stop: 12/31/18 01:59 Last Admin: 12/03/18 14:08 Dose: 0.63 mg Levothyroxine Sodium (Synthroid) 75 mcg PO DAILYBB [facility] Stop: 12/31/18 06:29 Last Admin: 12/03/18 05:35 Dose: 75 mcg Magnesium Hydroxide (Milk Of Magnesia) 30 ml PO Q12H PRN PRN Reason: Constipation Stop: 12/30/18 20:58 Midodrine (Proamatine) 20 mg PO TuThSa@1000 [facility] Stop: 01/02/19 09:59 Last Admin: 12/03/18 08:49 Dose: 20 mg Midodrine (Proamatine) 10 mg PO MoWeFr@0900 [facility] Stop: 01/01/19 08:59 Last Admin: 12/02/18 08:39 Dose: 10 mg Miscellaneous (Carbohydrates For Hypoglycemia) 15 - 30 gm PO UD PRN PRN Reason: Hypoglycemia Treatment Stop: 12/30/18 20:58 Miscellaneous (Fentanyl Patch Remove & Waste) 1 ea N/A Q72H [facility] Stop: 01/03/19 08:58 Last Admin: 12/01/18 09:10 Dose: 2 ea Miscellaneous (Fentanyl Patch Remove & Waste) 1 ea N/A Q72H [facility] Stop: 01/03/19 08:58 Miscellaneous (Fentanyl Patch Check Placement) 1 ea N/A QS [facility] Stop: 12/31/18 07:59 Last Admin: 12/03/18 08:51 Dose: 1 ea Miscellaneous (Fentanyl Patch Check Placement) 1 ea N/A QS [facility] Stop: 12/31/18 07:59 Last Admin: 12/03/18 08:52 Dose: 1 ea Multivitamins (Multivitamin Tab) 1 tab PO QAM [facility] Stop: 12/31/18 08:59 Last Admin: 12/03/18 08:48 Dose: 1 tab Nitroglycerin (Nitrostat) 0.4 mg SL PRN PRN PRN Reason: Chest Pain Stop: 12/30/18 20:58 Nystatin (Mycostatin) 10 ml PO QID [facility] Stop: 12/31/18 08:59 Last Admin: 12/03/18 13:46 Dose: 10 ml Nystatin (Mycostatin) 1 appln EXT BID PRN PRN Reason: Affected Skin Folds Stop: 12/31/18 10:25 Last Admin: 12/02/18 12:13 Dose: 1 appln Polyethylene Glycol (Miralax Powder Packet) 17 gm PO DAILY PRN PRN Reason: Constipation Stop: 12/30/18 20:58 Prednisone (Prednisone) 30 [facility] [place]; Taper Stop: 12/10/18 08:59 Last Admin: 12/03/18 08:48 Dose: 30 mg Ranitidine HCl (Zantac) 75 mg [facility] [place] Stop: 12/31/18 08:59 Last Admin: 12/03/18 08:49 Dose: 75 mg Sertraline HCl (Zoloft) 100 mg PO [facility] Stop: 12/30/18 20:59 Last Admin: 12/02/18 22:14 Dose: 100 mg _ (1) Type 2 diabetes mellitus with diabetic neuropathy Diabetes mellitus longterm insulin use: with longterm use Qualified Code(s) : E11.40 - Type 2 diabetes mellitus with diabetic neuropathy, unspecified; 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 (2) CHF (congestive heart failure) Heart failure chronicity: unspecified Heart failure type: unspecified Qualified Code(s): I50.9 - Heart failure, unspecified (3) Wound of left ankle Encounter type: sequela Qualified Code(s): S91.002S - Unspecified open wound , left ankle, sequela (4) Hypothyroidism Hypothyroidism type: unspecified Qualified Code(s): E03.9 - Hypothyroidism, unspecified (5) GERD (gastroesophageal reflux disease) Esophagitis presence: without esophagitis Qualified Code(s): K21.9 - Gastro- esophageal reflux disease without esophagitis (6) Chest pain Chest pain type: unspecified Ischemic chest pain type: Qualified Code(s): R07.9 - Chest pain, unspecified (7) Hypotension Hypotension type: hemodialysis-associated hypotension Trimester: Qualified Code(s): I95.3 - Hypotension of hemodialysis
--- NOTE | 2018-12-03 13:43 | Pharmacy Report ---
Pharmacy Abx Dose Short Note - Date of Service December 03, 2018 - Assessment & Plan Assessment 73 year old F receiving vancomycin and Zosyn for treatment of skin and soft tissue infection of left ankle (s/p ORIF of left ankle 08/2018). Patient also receiving azithromycin 250 mg PO q24h continued from [facility] for treatment of respiratory tract infection. Day # 4 of antimicrobial therapy for treatment of SSTI. Plan Vancomycin * Random vancomycin level this morning resulted at 24.3 down from 27.2 following a 2 hour dialysis session yesterday (12/02). * Patient underwent full dialysis session today (12/03) following random vancomycin level of 24.3. Will continue to hold vancomycin for now due to that level being supratherapeutic and potential for transition to PO within next 24 hours. Consider pre-HD level if still receiving vancomycin at time of next scheduled dialysis session (12/05). Azithromycin * Patient completed full course of azithromycin (at least 5 days) for treatment of respiratory tract infection/COPD exacerbation. Dr. Pittman notified and agreed with discontinuation. Zosyn * Patient currently receiving 3.375 g IV q12h. Dose appropriate for dialysis patient. Continue until wound care can further assess wound. Pharmacy will continue to follow and will adjust dose/frequency as necessary. Thank you.
[2018-12-03] MEDS: PIPERACILLIN/TAZOBACTAM 3.375 GM in DEXTROSE 5% 100 ML IV SCH (13:45)
[2018-12-03] MEDS: CALCIUM ACETATE 667 MG CAP PO SCH (13:46)
--- NOTE | 2018-12-03 14:27 | Cardiology Progress Note ---
Date of Service December 03, 2018 Assessment & Plan (1) Elevated troponin I level: Multifactorial secondary to volume overload, decompensated heart failure, cor pulmonale, with RV dilatation/dysfunction, severe TR, and indirect evidence of severe pulmonary hypertension. Plaque rupture event less likely. Patient clinically improved with hemodialysis treatments. Continue aspirin, statin, and amiodarone. (2) Acute on chronic right heart failure: Volume management per hemodialysis. Therapeutic options are limited due to chronic hypotension. (3) NICM (nonischemic cardiomyopathy): Normal LV function per repeat echocardiogram performed during this hospitalization. No regional left ventricular myocardial wall motion abnormalities. (4) Paroxysmal atrial fibrillation: Maintained in sinus rhythm with amiodarone. Patient is not a long-term anticoagulation candidate due to history of hemorrhagic pericarditis/tamponade. (5) Pulmonary hypertension: Indirect evidence of severe pulmonary hypertension per echocardiogram. (6) Pacemaker: Interrogation suggest atrial oversensing. I have spoken with a technician helper instrument from [facility] who will reinterrogate pacemaker and adjust settings for adequate sensitivity. Patient has missed pacemaker follow-up in the outpatient setting. Subjective Patient seen and examined the bedside post dialysis. Feeling better from a cardiovascular perspective. No chest discomfort or unusual shortness of breath. Edema has resolved. Pacemaker reprogrammed due to atrial oversensing. Denies palpitations, lightheadedness, dizziness, syncope, or near syncope. Remains in sinus rhythm with intermittent ventricular demand pacing as well as AV sequential pacing on telemetry. Offers no complaints at this time. Review of Systems All systems reviewed & are unremarkable except as noted in HPI & below Physical Exam 2 Vital Signs (Past 24 Hours): Last Vital Signs Temp 36.6 C 12/03/18 13:54 Pulse 70 12/03/18 14:10 Resp 18 12/03/18 14:10 BP 98/62 L 12/03/18 13:54 Pulse Ox 97 12/03/18 14:10 Physical Exam: General: NAD, AAO x3, well nourished. Chronically ill. HEENT : Normocephalic. Atraumatic. Conjunctiva pink, no scleral icterus. Neck: No carotid bruits, the carotid upstrokes are brisk. Elevated jugular venous distention. Heart: Regular normal S-1 and S-2 no S-3 or S-4 gallop. No murmurs or rub appreciated. PMI is not displaced. No RV heave. Lungs: Clear bilateral without rales, rhonchi, or wheeze. Abdomen: Normal bowel sounds. Soft. Nontender. No masses or organomegaly. No abdominal bruits. Extremities: Trace bilateral pedal and pretibial edema. No clubbing or cyanosis. Pulses: radial=2/4, Dorsalis pedis =2/4, posterior tibial=2/4. Neuro: Cranial nerves grossly intact. No focal motor deficit.
[2018-12-03] MEDS ORDERED: AMOXICILLIN/CLAVULANATE 500 MG TAB PO ONE (14:30)
[2018-12-03] MEDS: COLLAGENASE OINT 30 GM TUBE EXT SCH (14:34)
--- NOTE | 2018-12-03 14:54 | Wound Consultation ---
Date of Consultation December 03, 2018 Assessment & Plan (1) Pressure ulcer: (2) Wound of left ankle: (3) History of fracture of left ankle: (4) Type 2 diabetes mellitus with diabetic neuropathy: History of Present Illness Attending Physician: Alvaro Pittman MD 73-year-old female with past medical history of end-stage renal disease on hemodialysis, insulin-dependent diabetes, PAF, history of TIA, nonischemic cardia myopathy, chronic diastolic CHF, pulmonary hypertension, obesity hypoventilation syndrome, [place] on BiPAP, history of symptomatic bradycardia status post pacemaker, history of PE status post IVC filter, hypothyroidism, depression presented [facility] secondary to shortness of breath and chest pain. Patient is status post surgical repair of closed bimalleolar fracture of the left ankle. She has chronic wound on her left lateral ankle that is been there for 6 months. Due to hardware patient laterally rotates her foot and places pressure over the ankle. [place] for the wound but states that they have not been doing anything. Patient is on Vanco and Zosyn IV and wound culture was negative. Allergies Allergy/AdvReac Type Severity Reaction Status Date / Time Iodinated Contrast- Oral and Allergy Mild "Contrast Verified 09/04/18 09:07 IV Dye Media" -- unknown rxn adhesive Allergy Unknown "Tape" -- Verified 09/04/18 09:07 unknown rxn morphine Allergy Unknown UNKNOWN Verified 09/04/18 09:07 warfarin Allergy Unknown HYPERSENSIT Verified 09/04/18 09:07 IVITY/BLEED ING tomato AdvReac Intermediate GI SYMPTOMS Verified 09/04/18 09:07 Home Medications Home Medications Medication Instructions Recorded Confirmed Type amiodarone 200 mg PO QAM 09/03/18 11/30/18 History atorvastatin 40 mg PO HS 09/03/18 11/30/18 History calcium acetate 667 mg PO DAILY 09/03/18 11/30/18 History clonazepam 0.5 mg PO HS 09/03/18 11/30/18 History gabapentin 200 mg PO AMHS 09/03/18 11/30/18 History levothyroxine 75 mcg PO QAM 09/03/18 11/30/18 History multivitamin 1 tab PO QAM 09/03/18 11/30/18 History nitroglycerin [Nitrostat] 0.4 mg SUBLINGUAL DIRECTED PRN 09/03/18 11/30/18 History sertraline 100 mg PO HS 09/03/18 11/30/18 History acetaminophen 650 mg PO Q6H PRN 11/30/18 11/30/18 History albuterol sulfate [Ventolin HFA] 2 puff INHALATION Q4H PRN 11/30/18 11/30/18 History aspirin 81 mg PO QAM 11/30/18 11/30/18 History azithromycin 500 mg PO QAM 11/30/18 11/30/18 History bisacodyl 10 mg PO DIRECTED PRN 11/30/18 11/30/18 History clonazepam See Label Instructions .ROUTE 11/30/18 11/30/18 History .COMPLEX docusate sodium 100 mg PO Q12H PRN 11/30/18 11/30/18 History fentanyl 1 patch TRANSDERMAL Q72H 11/30/18 11/30/18 History glycerin (adult) 1 supp ID DAILY PRN 11/30/18 11/30/18 History guaifenesin 400 mg PO Q4H PRN 11/30/18 11/30/18 History hydrocodone-acetaminophen [[place]] 1 tab PO Q6H PRN 11/30/18 11/30/18 History midodrine 20 mg PO 3XWK 11/30/18 11/30/18 History midodrine See Label Instructions .ROUTE 11/30/18 11/30/18 History .COMPLEX ondansetron HCl 4 mg PO Q6H PRN 11/30/18 11/30/18 History polyethylene glycol 3350 17 g PO DAILY PRN 11/30/18 11/30/18 History prednisone See Label Instructions .ROUTE 11/30/18 11/30/18 History .COMPLEX ranitidine HCl 75 mg PO QAM 11/30/18 11/30/18 History Patient History Medical History History of fracture of left ankle 08/2018 ORIF trimalleolar fx Depression (Chronic) Left midfoot ulcer (Acute) Type 2 diabetes mellitus with diabetic neuropathy (Chronic) Acquired claw toe of right foot (Chronic) Acquired claw toe of left foot (Chronic) Ulcer of right midfoot (Acute) Diabetic retinopathy (Chronic) Paroxysmal atrial fibrillation (Chronic) TIA (transient ischemic attack) (Chronic) GERD (gastroesophageal reflux disease) (Chronic) Pulmonary hypertension (Chronic) Pulmonary embolism (Resolved) DM type 2 (diabetes mellitus, type 2) (Chronic) Chronic diastolic CHF (congestive heart failure) (Chronic) Nonischemic cardiomyopathy (Chronic) [place] treated with BiPAP (Chronic) Chronic respiratory failure with hypoxia (Chronic) Symptomatic bradycardia (Chronic) Pacemaker (Chronic) Hypertension (Chronic) Spinal stenosis (Chronic) Osteoarthritis (Chronic) Malignant melanoma (Chronic) Thrombocytopenia (Chronic) 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 Pt has been off coumadin since and not anticoagulation candidate ESRD (end stage renal disease) on dialysis (Chronic) Mitral regurgitation Surgical History H/O total hysterectomy (Chronic) S/P cholecystectomy (Chronic) S/P IVC filter (Chronic) AV fistula Pacemaker Family History Other Diabetes Social History marital status: Current Living Situation: Family Current Living Situation Comment: reports she lives in an apt, has caregivers Mon-Sat Feels Safe at Home: Yes Safety Concerns: Feels Safe At This Time Smoking Status: Former smoker Tobacco Type: cigarettes Hx Alcohol Use: No Hx Substance Use: No Beliefs That Will Affect Care: None Communication Ability: Effective Physical Exam 2 Vital Signs (Past 24 Hours): 10 point review of systems negative except per HPILast Vital Signs Temp 36.6 C 12/03/18 13:54 Pulse 70 12/03/18 14:10 Resp 18 12/03/18 14:10 BP 98/62 L 12/03/18 13:54 Pulse Ox 97 12/03/18 14:10 Constitutional: WD/WN, vitals as above Respiratory: normal respiratory effort, lungs clear to auscultation Cardiovascular: Rate/Rhythm: regular rate Gastrointestinal (Abdomen): normal bowel sounds, soft, nontender, no hepatosplenomegaly Skin: Left lateral ankle wound measuring 4 x 1.2 x 0.1 cm. The surface area of 4.8 cm. Wound bed covered in fibrinous slough. Periwound intact. 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
[2018-12-03] MEDS: SERTRALINE HCL 100 MG TABLET PO SCH (20:15)
[2018-12-03] MEDS: ATORVASTATIN 40 MG TAB PO SCH (20:16)
--- NOTE | 2018-12-03 20:17 | Nephrology Progress Note ---
Date of Service December 03, 2018 Assessment & Plan (1) ESRD (end stage renal disease) on dialysis: -had full hd today w/ goal fluid removal 3L; tolerated well -next full HD on 12/05 -she has some fluid on board, michael in abdomen; will be difficult to be clear how much is fluid, how much is infection/inflammation in lungs (2) Hypotension: on midodrine w/ HD; her sbp seems to run 80-90s at baseline; she is at baseline (3) Melena: -hgb steady and did use mini heparin w/ hd -daily cbc -follow OP routine for anemia mgt on ESRD Subjective seen on rounds 1610. had uneventful hd today; still w/ thick cough, else feels improved, more rested Physical Exam 2 Vital Signs (Past 24 Hours): Last Vital Signs Temp 36.6 C 12/03/18 19:45 Pulse 72 12/03/18 19:45 Resp 16 12/03/18 19:45 BP 106/69 12/03/18 19:45 Pulse Ox 98 12/03/18 19:45 Constitutional: well developed, well nourished and + frail appearing sitting up in chair on 02nc talking on phone Eyes: EOM intact bilaterally ENMT: Ears: no external ear abnormality Nose: no external nose abnormality Mouth: + dry oral mucous membranes Neck: no nuchal rigidity Respiratory: normal respiratory effort Auscultation: + diminished lung sounds and + crackles (bl bases) kyphotic spine Cardiovascular: Rate/Rhythm: regular rate and regular rhythm Heart Sounds: + murmur Extremities: + edema (trace BL) and + AV fistula (LUE + t/b) Gastrointestinal (Abdomen): Inspection/Auscultation: normal bowel sounds Percussion/Palpation: abdomen soft and + ascites; abdomen nontender Musculoskeletal: Extremities: strength 5/5 throughout Skin: no rashes, warm and dry Psychiatric: A+Ox3, euthymic affect Eye Contact: good eye contact Speech : normal rate/rhythm/volume of speech Results & Data Laboratory Results Abnormal lab results 12/02/18 12/03/18 12/03/18 Range/Units 20:43 06:55 06:55 RBC 3.41 L (4.2-5.4) M/uL Hgb 10.6 L (12.0-16.0) g/dL Hct 32.5 L (37-47) % RDW Std Deviation 61.1 H (36.4-46.3) fL RDW Coeff of Anatoly 19.0 H (11.5-14.5) % Plt Count 88 L (130-400) K/uL MPV 11.4 H (7.4-10.4) fL Immature Gran # (Auto) 0.05 H (0.00-0.02) K/uL Neut # (Auto) 7.27 H (1.4-6.5) K/uL Lymph # (Auto) 0.58 L (1.2-3.4) K/uL [place] # (Auto) 0.68 H (0.11-0.59) K/uL Absolute Nucleated RBC 0.06 H (0-0) K/uL Sodium 133 L (136-145) mmol/L Chloride 93 L (98-107) mmol/L Anion Gap 13.0 H (3-11) BUN 48 H (7-18) mg/dl Creatinine 4.39 H D (0.6-1.2) mg/dl Glucose 193 H (70-99) mg/dl POC Glucose 192 H (70-99) Calcium 8.2 L (8.5-10.1) mg/dl Total Bilirubin 1.4 H (0.2-1) mg/dl AST 76 H (15-37) U/L Alkaline Phosphatase 252 H (45-117) U/L Albumin 2.8 L (3.4-5.0) gm/dl Albumin/Globulin Ratio 0.8 L (0.9-2) 12/03/18 12/03/18 12/03/18 Range/Units 07:11 13:52 16:36 RBC (4.2-5.4) M/uL Hgb (12.0-16.0) g/dL Hct (37-47) % RDW Std Deviation (36.4-46.3) fL RDW Coeff of Anatoly (11.5-14.5) % Plt Count (130-400) K/uL MPV (7.4-10.4) fL Immature Gran # (Auto) (0.00-0.02) K/uL Neut # (Auto) (1.4-6.5) K/uL Lymph # (Auto) (1.2-3.4) K/uL [place] # (Auto) (0.11-0.59) K/uL Absolute Nucleated RBC (0-0) K/uL Sodium (136-145) mmol/L Chloride (98-107) mmol/L Anion Gap (3-11) BUN (7-18) mg/dl Creatinine (0.6-1.2) mg/dl Glucose (70-99) mg/dl POC Glucose 198 H 168 H 233 H (70-99) Calcium (8.5-10.1) mg/dl Total Bilirubin (0.2-1) mg/dl AST (15-37) U/L Alkaline Phosphatase (45-117) U/L Albumin (3.4-5.0) gm/dl Albumin/Globulin Ratio (0.9-2) _ (1) Hypotension Hypotension type: hemodialysis-associated hypotension Trimester: Qualified Code(s): I95.3 - Hypotension of hemodialysis
[2018-12-03] MEDS: clonazePAM 0.5 MG TAB PO SCH (20:18)
[2018-12-04] MEDS: IPRATROPIUM BROMIDE NEB SOLN 0.02% 2.5 ML VIAL INH SCH ×3 (02:15→14:07)
[2018-12-04] MEDS: LEVALBUTEROL HCL 0.63 MG/3 ML NEB NEB SCH ×3 (02:15→14:07)
[2018-12-04] MEDS: LEVOTHYROXINE SODIUM 75 MCG TABLET PO SCH (05:34)
[2018-12-04 05:58] LABS: Hematocrit (blood only) 32.5 % (37-47); Hemoglobin 10.4 g/dL (12.0-16.0); Mean Corpuscular Volume 97.6 fL (80-100); Nucleated RBC # (auto) 0.02 K/uL (0-0); Nucleated RBC % (auto) 0.3 %; Platelet Count 73 K/uL (130-400); RDW Coefficient of Variation 19.7 % (11.5-14.5); RDW Standard Deviation 66.2 fL (36.4-46.3); Red Blood Count 3.33 M/uL (4.2-5.4); White Blood Count 6.78 K/uL (4.8-10.8)
[2018-12-04 06:31] LABS: BUN Creatinine Ratio 9.2 (10-20); Calcium 8.4 mg/dl (8.5-10.1); Creatinine Clr Calc Pharmacy 11.3 ml/min; Est GFR (African American) 12.6; Est GFR (Non-African American) 10.9; Magnesium 2.2 mg/dl (1.8-2.4); Potassium 3.8 mmol/L (3.5-5.1)
[2018-12-04 06:37] LABS: Eosinophils # (auto) 0.07 K/uL (0-0.5); Immature Granulocytes # (auto) 0.03 K/uL (0.00-0.02); Immature Granulocytes % (auto) 0.4 %; Lymphocytes # (auto) 0.46 K/uL (1.2-3.4); Lymphocytes % (auto) 6.8 %; Monocytes # (auto) 0.68 K/uL (0.11-0.59); Neutrophils # (auto) 5.54 K/uL (1.4-6.5); Neutrophils % (auto) 81.8 %; Polychromasia 1+; Target Cells 1+
[2018-12-04] MEDS: INSULIN GLARGINE SOLOSTAR 100 UNITS/ML 3 ML PEN SC SCH ×2 (07:09→09:14)
[2018-12-04] MEDS: MULTIVITAMIN TAB PO SCH (07:55)
[2018-12-04] MEDS: MIDODRINE HCL 10 MG TAB PO SCH (07:58)
[2018-12-04] MEDS: ASPIRIN 81 MG ECTAB PO SCH (07:58)
[2018-12-04] MEDS: predniSONE 10 MG TABLET PO SCH (07:58)
[2018-12-04] MEDS: CHECK FENTANYL PATCH PLACEMENT SCH ×4 (07:59→16:13)
[2018-12-04] MEDS: GABAPENTIN 100 MG CAP PO SCH (07:59)
[2018-12-04] MEDS: NYSTATIN SUSP 500,000 U/5 ML UDC PO SCH ×3 (08:00→16:15)
[2018-12-04] MEDS: COLLAGENASE OINT 30 GM TUBE EXT SCH (08:01)
[2018-12-04] MEDS ORDERED: AMOXICILLIN/CLAVULANATE 500 MG TAB PO SCH (09:00)
[2018-12-04] MEDS: INSULIN ASPART 100 UNITS/ML 3 ML PEN SC SCH ×3 (09:12→16:49)
[2018-12-04] MEDS: AMIODARONE 200 MG TAB PO SCH (09:28)
[2018-12-04] MEDS: fentaNYL 25 MCG/HR TDSY TD SCH (09:28)
[2018-12-04] MEDS: fentaNYL 12 MCG/HR TDSY TD SCH (09:28)
[2018-12-04] MEDS: CALCIUM ACETATE 667 MG CAP PO SCH (12:38)
--- NOTE | 2018-12-04 14:37 | Hospitalist Progress Note ---
Date of Service December 04, 2018 Assessment & Plan (1) Shortness of breath: Patient is a 73 yr with multiple co morbidities --ESRD on HD (sun, , sun), IDDM, PAF, hx of TIA, nonischemic cardiomyopathy, chronic diastolic CHF, pulmonary hypertension, obesity hypoventilation syndrome, [place] on bipap, hx of symptomatic bradycardia s/p pacemaker, H/O PE s/p IVC filter, hypothyroidism, depression presented with shortness of breath and chest pain x 1 day Acute on chronic right heart failure H/O Nonischemic Cardiomyopathy Dyspnea--multifactorial: CHF, recent non-ST elevation [place], fluid overload secondary to renal failure. Doubt ACS Appreciate Cardiology Input Echo: Findings unchanged from Prior ECHO Volume status being managed with Dialysis Continue Aspirin, statin, amiodarone Chest pain resolved (2) Elevated troponin: --Likely secondary to Volume overload in setting of ESRD --Management as above (3) Chest pain: Resolved (4) Wound of left ankle: S/P ORIF to L ankle 08/2018 Recently saw Ben Young PA-C in follow up who feels ankle is healing well WBAT w/o need of assist device Per BENIGNO Young note while in nursing facility she tested +for MRSA to wound therefore treated with course of bactrim due to concern for cellulitis; however at visit on 11/22/18 he felt Ankle/wound was healing well. Received IV Zosyn and vancomycin Blood/Wound culture: negative Continue wound Care Appreciate wound care provider input and recommendation Continue Augmentin 500 mg p.o. daily every 24 hours 3 additional dose after each dialysis Need to complete total 2 week course (5) Thrush: nystatin swish and swallow QID (6) Elevated LFTs: While in [facility] LFTs mildly elevated, per family U/S of liver was done, no further work up as outpatient Need to obtain records from [facility] for further work up Follow up with GI as outpatient (7) CHF (congestive heart failure): Chronic systolic and diastolic heart failure exacerbation Echocardiogram demonstrates preserved LV systolic function with evidence of severe tricuspid regurgitation and severe pulmonary hypertension. Findings unchanged when compared to prior echocardiogram 01/2018. continue ASA, Statin Continue hemodialysis as per Nephrology Appreciate Help (8) ESRD (end stage renal disease) on dialysis: continue HD //Sun Appreciate Nephrology help (9) Type 2 diabetes mellitus with diabetic neuropathy: Last A1C 6.7 -Continue Lantus/Novolog per protocol (10) Paroxysmal atrial fibrillation: Interrogation of pacemaker done Continue amiodarone Not on long-term anticoagulation candidate due to H/O hemorrhagic pericarditis/ tamponade. (11) Hypotension: continue midodrine BP stable (12) GERD (gastroesophageal reflux disease): Continue ranitidine (13) [place] treated with BiPAP: BIPAP QHS (14) Thrombocytopenia: Monitor (15) Hypothyroidism: continue levothyroxine TSH 2.95 (16) QT prolongation: avoid QT prolonging medications (17) DVT prophylaxis: SCDs (18) Melena: Hb stable Needs FU with GI as outpatient Disposition: Home with Home Health Follow up: PCP Dr. Mo upon discharge Subjective Patient is seen and examined at bedside Reports dry cough Chronic tiredness per patient Denies chest pain, dyspnea, dizziness, abd pain, nausea Offers no other complaints Prefers to be discharged home Physical Exam 2 Vital Signs (Past 24 Hours): Last Vital Signs Temp 36.6 C 12/04/18 07:00 Pulse 70 12/04/18 07:12 Resp 16 12/04/18 07:12 BP 93/60 L 12/04/18 07:00 Pulse Ox 94 12/04/18 12:54 Physical Exam: Physical Exam: Vitals signs as noted above General Appearance:Moderately built and nourished, no apparent distress Head: normocephalic, Atraumatic Eyes: normal inspection, EOMI Neck: supple, Trachea midline Respiratory/Chest: Decreased breath sounds, CTA Cardiovascular: S1, S2, + murmur Abdomen/GI:Soft, Non tender, Bowel sounds present Extremities/Musculoskelatal:normal inspection, no edema, left ankle wound in dressing Neurologic/Psych:AAOX3, grossly no focal neurological deficits Skin: normal color, warm Results & Data Laboratory Results Short CBC 12/04/18 Range/Units 05:26 WBC 6.78 (4.8-10.8) K/uL Hgb 10.4 L (12.0-16.0) g/dL Hct 32.5 L (37-47) % Plt Count 73 L (130-400) K/uL BMP 12/04/18 05:30 Sodium 134 L Potassium 3.8 Chloride 98 Carbon Dioxide 25 BUN 35 H Creatinine 3.82 H D Glucose 154 H Calcium 8.4 L _ (1) Chest pain Chest pain type: unspecified Ischemic chest pain type: Qualified Code(s): R07.9 - Chest pain, unspecified (2) Wound of left ankle Encounter type: sequela Qualified Code(s): S91.002S - Unspecified open wound , left ankle, sequela (3) CHF (congestive heart failure) Heart failure chronicity: unspecified Heart failure type: unspecified Qualified Code(s): I50.9 - Heart failure, unspecified (4) Type 2 diabetes mellitus with diabetic neuropathy Diabetes mellitus superintendent container terminal insulin use: with superintendent container terminal use Qualified Code(s) : E11.40 - Type 2 diabetes mellitus with diabetic neuropathy, unspecified; Z79.4 - manager intermediate (current) use of insulin (5) Hypotension Hypotension type: hemodialysis-associated hypotension Trimester: Qualified Code(s): I95.3 - Hypotension of hemodialysis (6) GERD (gastroesophageal reflux disease) Esophagitis presence: without esophagitis Qualified Code(s): K21.9 - Gastro- esophageal reflux disease without esophagitis (7) Hypothyroidism Hypothyroidism type: unspecified Qualified Code(s): E03.9 - Hypothyroidism, unspecified
--- NOTE | 2018-12-04 14:52 | Discharge Summary ---
Date of Service December 04, 2018 Admission HPI Per Admitting Provider This is a 73 y/o F with PMH ESRD on HD (deo, inez, marcy), IDDM, PAF, hx of TIA, nonischemic cardiomyopathy, chronic diastolic CHF, pulmonary hypertension, obesity hypoventilation syndrome, EVERTON on bipap, hx of symptomatic bradycardia s /p pacemaker, H/O PE s/p IVC filter, hypothyroidism, depression who presents to [facility] ED secondary to shortness of breath and chest pain x 1 day. Daughters at bedside. Patient underwent HD today at [facility] in [place]. During HD she was experiencing substernal chest discomfort, nonradiating, with sob. Chest pain lasted approx 2-3 hours, relieved with out intervention. Tried O2 while at HD w/o relief of CP, but improvement of SOB. Further complains of increased abdominal girth. Has been coughing for approx 2 weeks, productive, initially clear, now purulent past 2-3 days, and having mouth pain. Unfortunately patient recently admitted to [facility] on 11/24/18 and discharged on 11/28/18 secondary to CHF exac. At that time troponin 0.09. Per daughter patient was diuresed. Also treated with IV vanco while in hospital for L ankle cellulitis. She was discharged home on prednisone taper and Zpack. She has completed 2 doses of antibiotic and prednisone. Unfortunately pt suffered left trimalleolar ankle fracture and was hospitalized in August 2018 and underwent ORIF. Unfortunately she has been having difficulty with wound healing to left lateral ankle. Per family recent history of MRSA in wound and treated with antibiotic course of Bactrim as well as vanco in hospital. She has been residing at [facility] in [place] given comorbidites s/p fall and L ankle fracture. Currently patient denies f/c/s, dizziness, lightheaded, syncope, chest pain, sob at rest, hemoptysis, n/v/d. She is anuric from ESRD. She did receive full HD tx today and states HD improved her breathing. Admission Exam Per Admitting Provider Gen: Elderly F, older than stated age, fraile, sitting up in bed, NAD, conversing easily, Head: Normocephalic, Atraumatic Eyes: Sclera normal, no conjunctival injection, anicteric, PERRLA, EOMI ENT: Gross hearing intact, normal pharynx, mucous membranes moist +thrush Neck: supple, no adenopathy, No JVD, no bruit, Resp: Clear to auscultation b/l with bibasilar crackles L > R, no wheeze, rales , rhonchi. Normal insp/exp effort, no accessory muscle use CV: Regular rate, regular rhythm, 2/6 MICHELLE noted throughout precordium, best at apex, no rub, gallop, or ectopy Abd: + truncal obesity, +BS x 4, soft, nontender, nondistended Musculoskeletal: moves extremities active rom x 4, strength 4/5 b/l, good loader helper sorting yard strength Extremities: No edema bilaterally, L lateral malleolar wound with slough tissue present centrally, peripheral wound bed appears to be healing. no surrounding erythema or warmth Skin: cool, dry, multiple areas of ecchymosis, roa tint to skin, no rash, negative turgor, cap refill 2sec Neuro: Alert and oriented x 3, speech normal, good mood/affect, cran nerve 2-12 intact grossly : deferred Principal Diagnosis Discharge Information Discharge Diagnosis Acute CHF Exacerbation Left Ankle wound Melena Discharge Goals Decrease discomfort,Improve function,Improve disease control Discharge Activity Limitations Resume your previous activity Discharge Data Allergies Allergy/AdvReac Type Severity Reaction Status Date / Time Iodinated Contrast- Oral and Allergy Mild "Contrast Verified 09/04/18 09:07 IV Dye Media" -- unknown rxn adhesive Allergy Unknown "Tape" -- Verified 09/04/18 09:07 unknown rxn morphine Allergy Unknown UNKNOWN Verified 09/04/18 09:07 warfarin Allergy Unknown HYPERSENSIT Verified 09/04/18 09:07 IVITY/BLEED ING tomato AdvReac Intermediate GI SYMPTOMS Verified 09/04/18 09:07 Consultations 11/30/18 18:17 ED Decision to Admit Stat 11/30/18 19:47 Consult Nephrology Routine 11/30/18 20:59 Consult Case Management - Discharge Planning Routine 11/30/18 21:15 Consult Cardiology Routine 12/03/18 10:13 Consult Wound Care Provider Routine Procedures Performed CXR: Cardiomegaly without acute process. CT ABD: 1. No bowel obstruction or focal bowel wall thickening. 2. Suggested constipation. 3. Atrophic morphology of the bilateral kidneys. 4. Mild marginal nodularity of the liver is suggestive of mild cirrhotic liver disease. Trace perihepatic ascites . 5. Patchy groundglass and consolidative opacities of the lung bases suggests multifocal bronchopneumonia or aspiration pneumonitis. 6. Prior cholecystectomy and hysterectomy. 7. Additional findings as above. Ankle X ray: 1. No acute fracture, dislocation or acute bony erosive changes. 2. ORIF changes with satisfactory alignment. 3. Mild circumferential soft tissue swelling about the ankle. Ordered Studies 11/30/18 21:54 CT abd pelvis wo con Urgent Hospital Course (1) Shortness of breath: Patient is a 73 yr with multiple co morbidities --ESRD on HD (tue, thur, sat), IDDM, PAF, hx of TIA, nonischemic cardiomyopathy, chronic diastolic CHF, pulmonary hypertension, obesity hypoventilation syndrome, EVERTON on bipap, hx of symptomatic bradycardia s/p pacemaker, H/O PE s/p IVC filter, hypothyroidism, depression presented with shortness of breath and chest pain x 1 day Acute on chronic right heart failure H/O Nonischemic Cardiomyopathy Dyspnea--multifactorial: CHF, recent non-ST elevation SD, fluid overload secondary to renal failure. Doubt ACS Appreciate Cardiology Input Echo: Findings unchanged from Prior ECHO Volume status being managed with Dialysis Continue Aspirin, statin, amiodarone Chest pain resolved (2) Elevated troponin: --Likely secondary to Volume overload in setting of ESRD --Management as above (3) Chest pain: Resolved (4) Wound of left ankle: Pressure ulcer of L ankle, unstageable, POA S/P ORIF to L ankle 08/2018 Recently saw Ben Young PA-C in follow up who feels ankle is healing well WBAT w/o need of assist device Per BENIGNO Young note while in nursing facility she tested +for MRSA to wound therefore treated with course of bactrim due to concern for cellulitis; however at visit on 11/22/18 he felt Ankle/wound was healing well. Received IV Zosyn and vancomycin Blood/Wound culture: negative Continue wound Care Appreciate wound care provider input and recommendation Continue Augmentin 500 mg p.o. daily every 24 hours 3 additional dose after each dialysis Need to complete total 2 week course (5) Thrush: nystatin swish and swallow QID (6) Elevated LFTs: While in [facility] LFTs mildly elevated, per family U/S of liver was done, no further work up as outpatient Need to obtain records from [facility] for further work up Follow up with GI as outpatient (7) CHF (congestive heart failure): Chronic systolic and diastolic heart failure exacerbation Echocardiogram demonstrates preserved LV systolic function with evidence of severe tricuspid regurgitation and severe pulmonary hypertension. Findings unchanged when compared to prior echocardiogram 01/2018. continue ASA, Statin Continue hemodialysis as per Nephrology Appreciate Help (8) ESRD (end stage renal disease) on dialysis: continue HD //Sun Appreciate Nephrology help (9) Type 2 diabetes mellitus with diabetic neuropathy: Last A1C 6.7 -Continue Lantus/Novolog per protocol (10) Paroxysmal atrial fibrillation: Interrogation of pacemaker done Continue amiodarone Not on long-term anticoagulation candidate due to H/O hemorrhagic pericarditis/ tamponade. (11) Hypotension: continue midodrine BP stable (12) GERD (gastroesophageal reflux disease): Continue ranitidine (13) EVERTON treated with BiPAP: BIPAP QHS (14) Thrombocytopenia: Monitor (15) Hypothyroidism: continue levothyroxine TSH 2.95 (16) QT prolongation: avoid QT prolonging medications (17) DVT prophylaxis: SCDs (18) Melena: Hb stable Needs FU with GI as outpatient Disposition: Home with Home Health Follow up: PCP Dr. Mo upon discharge Total Time Total Time Spent Total Time Spent (In Minutes): 42 minutes Total Time Includes: Examination of the Patient, Discharge Planning, Medication Reconciliation, Communication With Other Providers and Other Discharge Plan Discharge Items Patient Disposition: Home - Home Health Services Reason For Visit: SOB Discharge Diagnosis: Acute CHF Exacerbation Left Ankle wound Melena Discharge Goals: Decrease discomfort, Improve disease control and Improve function Activity: Resume your previous activity Exercise/Sports: Gradually increase as tolerated Non-emergency contact: Primary Care Provider, Line Technician, Vine Pruner and Voice Over Artist Call non-emergency contact if: you have any medication questions, your symptoms worsen, your pain is not controlled, your pain is worsening, your pain is unusual for you, your pain is concerning for you and you have a fever Diet: Carb Consistent or DM2 and Dialysis Renal Addtl Provider Instructions: --Follow up with your PCP on Dec 09, 2018 at 11:05Am --Follow up with your Line Technician on Dec 05, 2018 at 8:15AM --Follow up with your Vine Pruner in 2-4 weeks (As you liver enzymes are elevated and your fecal occult blood test) is positive --Follow up with your Voice Over Artist for dialysis as sceduled --Complete the antibiotic course as prescribed Seek immediate medical attention if your symptoms reoccur or worsen Prescriptions: New amoxicillin-pot clavulanate 500-125 mg Tablet 1 tab PO DAILY Qty: 13 RF: 0 nystatin 100,000 unit/mL Suspension 10 ml PO QID 3 Days Qty: 120 RF: 0 Lactobacillus acidoph-L.bulgar [Floranex] 1 million cell Tablet 4 tab PO QIDM 7 Days Qty: 28 RF: 0 Continue albuterol sulfate [Ventolin HFA] 90 mcg/actuation Hfa Aerosol Inhaler 2 puff INHALATION Q4H PRN (Reason: Wheezing) RF: 0 prednisone 10 mg tablet See Label Instructions .ROUTE .COMPLEX RF: 0 hydrocodone-acetaminophen [[place]] 5-325 mg Tablet 1 tab PO Q6H PRN (Reason: Pain) RF: 0 ondansetron HCl 4 mg Tablet 4 mg PO Q6H PRN (Reason: Nausea And Vomiting) RF: 0 clonazepam 0.5 mg Tablet See Label Instructions .ROUTE .COMPLEX RF: 0 midodrine 5 mg Tablet See Label Instructions .ROUTE .COMPLEX RF: 0 midodrine 5 mg Tablet 20 mg PO 3XWK RF: 0 docusate sodium 100 mg Capsule 100 mg PO Q12H PRN (Reason: Constipation) RF: 0 polyethylene glycol 3350 17 gram/dose Powder 17 g PO DAILY PRN (Reason: Constipation) RF: 0 guaifenesin 400 mg Tablet 400 mg PO Q4H PRN (Reason: Cough) RF: 0 fentanyl 37.5 mcg/hour Patch 72 Hour 1 patch TRANSDERMAL Q72H RF: 0 acetaminophen 325 mg Tablet 650 mg PO Q6H PRN (Reason: Fever Or Pain) RF: 0 bisacodyl 5 mg Tablet 10 mg PO DIRECTED PRN (Reason: Constipation) RF: 0 glycerin (adult) Suppository 1 supp SD DAILY PRN (Reason: Constipation) RF: 0 aspirin 81 mg Tablet,Delayed Release (Dr/Ec) 81 mg PO QAM RF: 0 ranitidine HCl 150 mg Tablet 75 mg PO QAM RF: 0 amiodarone 200 mg tablet 200 mg PO QAM RF: 0 multivitamin Tablet 1 tab PO QAM RF: 0 atorvastatin 40 mg tablet 40 mg PO HS RF: 0 sertraline 100 mg tablet 100 mg PO HS RF: 0 levothyroxine 75 mcg tablet 75 mcg PO QAM RF: 0 nitroglycerin [Nitrostat] 0.4 mg Tablet, Sublingual 0.4 mg Sublingual DIRECTED PRN (Reason: Chest Pain) RF: 0 gabapentin 100 mg capsule 200 mg PO AMHS RF: 0 calcium acetate 667 mg capsule 667 mg PO DAILY RF: 0 clonazepam 0.5 mg Tablet 0.5 mg PO HS RF: 0 Discontinued azithromycin 500 mg tablet 500 mg PO QAM RF: 0 Stand-Alone Forms: [facility] Discharge Orders: Discharge Order (Routine); Ordered 12/04/18 Ordered By: Juan R Crews Admission Data Admit Date/Time: 11/30/18 19:47 Attending Provider: Juan R Crews Admit Provider: Shila Vargas Primary Care Provider: Subhash Mo Other Providers: Shila Vargas ; Mare Cordero ; Joby Jacob Jason L. ; Alvaro Pittman Service: Medical Other Interventions: Discharge Summary Assessment (RN) Last Done: 12/04/18 15:02 Pending Studies at Discharge: No DC Date/Time DO NOT enter until pt leaves facility: 12/04/18 17:18
[2018-12-04] MEDS ORDERED: LACTOBACILLUS ACIDOPHILUS (FLORANEX) TAB PO SCH (17:00)
[2018-12-05] MEDS ORDERED: AMOXICILLIN/CLAVULANATE 500 MG TAB PO SCH (16:00)
== END 2018-12-04 17:18 | disposition home health service (06) | DRG 682 ==
LOC: ED 15:46 → 2S 19:47 → SUATTDRO 19:47 → 2S 20:43 → 4W 12-03 14:39
DX: Z87.891 Personal history of nicotine dependence; N18.6 End stage renal disease; Z86.14 Personal history of Methicillin resistant Staphylococcus aureus infection; Z95.0 Presence of cardiac pacemaker; I48.0 Paroxysmal atrial fibrillation; E11.319 Type 2 diabetes mellitus with unspecified diabetic retinopathy without macular edema; I95.9 Hypotension, unspecified; B37.0 Candidal stomatitis; Z79.4 Long term (current) use of insulin; I27.29 Other secondary pulmonary hypertension; D69.6 Thrombocytopenia, unspecified; I45.10 Unspecified right bundle-branch block; F32.9 Major depressive disorder, single episode, unspecified; K21.9 Gastro-esophageal reflux disease without esophagitis; Z86.711 Personal history of pulmonary embolism; Z86.718 Personal history of other venous thrombosis and embolism; Z68.32 Body mass index [BMI] 32.0-32.9, adult; J44.9 Chronic obstructive pulmonary disease, unspecified; E87.79 Other fluid overload; Z86.73 Personal history of transient ischemic attack (TIA), and cerebral infarction without residual deficits; L89.520 Pressure ulcer of left ankle, unstageable; E11.40 Type 2 diabetes mellitus with diabetic neuropathy, unspecified; Z88.5 Allergy status to narcotic agent; I27.20 Pulmonary hypertension, unspecified; I13.11 Hypertensive heart and chronic kidney disease without heart failure, with stage 5 chronic kidney disease, or end stage renal disease; E66.2 Morbid (severe) obesity with alveolar hypoventilation; I42.9 Cardiomyopathy, unspecified; K92.1 Melena; I50.813 Acute on chronic right heart failure; I50.43 Acute on chronic combined systolic (congestive) and diastolic (congestive) heart failure

== ENCOUNTER 2018-12-14 11:45 | Inpatient (IN) ==
[2018-12-14 12:23] LABS: Mean Corpuscular Hgb Conc 31.9 g/dL (32-36)
[2018-12-14 12:31] LABS: Hematocrit (blood only) 33.9 % (37-47); Hemoglobin 10.8 g/dL (12.0-16.0); Mean Corpuscular Volume 101.2 fL (80-100); RDW Standard Deviation 75.3 fL (36.4-46.3); Red Blood Count 3.35 M/uL (4.2-5.4); White Blood Count 8.95 K/uL (4.8-10.8)
[2018-12-14 12:50] LABS: Alanine Aminotransferase 281 U/L (12-78); Albumin Level 2.6 gm/dl (3.4-5.0); Alkaline Phosphatase 296 U/L (45-117); Aspartate Aminotransferase 311 U/L (15-37); BUN Creatinine Ratio 7.4 (10-20); Bilirubin Direct 1.1 mg/dl (0-0.2); Bilirubin,Total 1.6 mg/dl (0.2-1); Blood Urea Nitrogen 37 mg/dl (7-18); Calcium 8.4 mg/dl (8.5-10.1); Carbon Dioxide 31 mmol/L (21-32); Chloride 94 mmol/L (98-107); Est GFR (African American) 9.1; Est GFR (Non-African American) 7.8; Glucose 130 mg/dl (70-99); Potassium 4.8 mmol/L (3.5-5.1); Sodium 131 mmol/L (136-145); Total Protein 6.3 gm/dl (6.4-8.2); Troponin I 0.471 ng/ml (0-0.045)
[2018-12-14 12:53] LABS: Anisocytosis Present; Basophils # (auto) 0.02 K/uL (0-0.2); Basophils % (auto) 0.2 %; Eosinophils # (auto) 0.07 K/uL (0-0.5); Eosinophils % (auto) 0.8 %; Immature Granulocytes # (auto) 0.03 K/uL (0.00-0.02); Immature Granulocytes % (auto) 0.3 %; Lymphocytes # (auto) 0.87 K/uL (1.2-3.4); Lymphocytes % (auto) 9.7 %; Monocytes % (auto) 10.1 %; Neutrophils # (auto) 7.06 K/uL (1.4-6.5); Neutrophils % (auto) 78.9 %; Platelet Count 69 K/uL (130-400); Target Cells 1+
[2018-12-14 12:54] LABS: Base Excess VBG 4.4 mEq/L; Oxygen Saturation VBG 64.7 %; pH VBG 7.35 (7.36-7.41)
[2018-12-14 13:00] LABS: INR 1.2 (0.9-1.1); Partial Thromboplastin Ratio 1.1; Partial Thromboplastin Time 27.5 Seconds (21.0-31.0); Prothrombin Time 12.1 Seconds (9.0-12.0)
[2018-12-14] MEDS ORDERED: SODIUM CHLORIDE 0.9% 250 ML IV ONE (13:11)
[2018-12-14] MEDS ORDERED: SODIUM CHLORIDE 0.9% 500 ML IV SCH (13:15)
--- NOTE | 2018-12-14 13:43 | XRay Report ---
SINGLE VIEW CHEST CLINICAL HISTORY: Lethargy. FINDINGS: An AP, portable, upright chest radiograph is compared to study dated 11/30/2018. Correlation is made with chest CT dated 01/26/2018. The examination is significantly degraded by portable techniq ue, apical lordotic positioning, and patient rotation. A 2-lead cardiac pacemaker is unchanged in pos ition. The heart is enlarged and there is atherosclerotic calcification of the thoracic aorta. There is pulmonary vascular congestion. Bibasilar atelectasis is noted. There is developing airspace consol idation at the right lung base. Trace pleural effusions are suspected. No pneumothorax is seen. The s keletal structures are osteopenic. There are healed bilateral rib fractures. IMPRESSION: 1. Cardiomegaly and cardiac pacemaker with evidence of congestive failure. 2. There is developing airspace consolidation at the right lung base. Correlate clinically for eviden ce of pneumonia/aspiration pneumonitis. Radiographic follow-up to resolution is recommended. 3. Suspect trace pleural effusions. Electronically signed by: Rey Cardoza M.D. 12/14/2018 1:42 PM
[2018-12-14] MEDS ORDERED: PIPERACILLIN/TAZOBACTAM 4.5 GM/120 ML BAG IV ONE (13:49)
[2018-12-14] MEDS ORDERED: VANCOMYCIN HCL 1,000 MG/270 ML BAG IV STA (13:49)
[2018-12-14] MEDS ORDERED: VANCOMYCIN CONSULT ACTIVE PRN ×2 (13:49→15:08)
[2018-12-14 13:58] LABS: Influenza B virus by PCR Neg for Influ B (Neg)
[2018-12-14] MEDS ORDERED: OSELTAMIVIR PHOSPHATE 75 MG CAP PO STA (14:09)
[2018-12-14] MEDS ORDERED: PIPERACILL/TAZOBAC CONSULT ACTIVE PRN (15:08)
[2018-12-14] MEDS: NOREPINEPHRINE BIT INJ 8 MG in DEXTROSE 5% 500 ML IV SCH (16:03)
--- NOTE | 2018-12-14 17:21 | Nephrology Consultation ---
Date of Consultation December 14, 2018 Assessment & Plan (1) ESRD (end stage renal disease) on dialysis: Patient with ESRD on dialysis Sunday. Last dialysis was on . She now comes in with acute respiratory distress and shock. She is grossly volume overload. Electrolytes are acceptable. We will dialyze her for 3 hours on a 3K bath to get UF 2 L. (2) Sepsis: Patient with sepsis due to influenza. She is receiving Tamiflu. She is also being covered with vancomycin and Zosyn. Continue Levophed. No need for IV fluids. (3) Fluid overload: Patient with volume overload. Chest x-ray showing pulmonary vascular congestion. Will attempt to liter UF. (4) Anemia of renal disease: Hemoglobin of 10.8 today which is at target. No need for JULIOCESAR History of Present Illness Reason for Consultation: ESRD complicated by influenza positive and shock Requesting Physician: Misael Lieberman MD Attending Physician: Misael Lieberman MD History of Present Illness This is a 73-year-old female with history of ESRD on dialysis Sunday in [place]. She has a left upper arm AV fistula. Last dialysis was on . She has chronic hypotension with dialysis. She is admitted with acute respiratory distress found to have flu positive. She is in shock requiring Levophed. We have been asked to evaluate her and provide dialysis support. Other PMH includes pAF w/o AC, hemorrhagic pericardial effusion, nonischemic ELECTRONIC SCALE TESTER, plm HTN, bradycardia s/p pacer, chronic respiratory failure on home ; multiple DVT/PE, hx TIA, DM on insulin, L ankle frx 08/2018 s/p ORIF, hypothyroid, EVERTON on cpap. She dialyzes under the care of Georgie Miller in [facility]. She cannot give much history but is complaining of shortness of breath and fecal incontinence each time she coughs. She is slightly confused. Blood pressure has improved with Levophed. She was receiving normal saline which have asked them to stop. Allergies Allergy/AdvReac Type Severity Reaction Status Date / Time Iodinated Contrast- Oral and Allergy Mild "Contrast Verified 12/14/18 12:44 IV Dye Media" -- unknown rxn adhesive Allergy Unknown "Tape" -- Verified 12/14/18 12:44 unknown rxn morphine Allergy Unknown UNKNOWN Verified 12/14/18 12:44 warfarin Allergy Unknown HYPERSENSIT Verified 12/14/18 12:44 IVITY/BLEED ING tomato AdvReac Intermediate GI SYMPTOMS Verified 12/14/18 12:44 Home Medications Home Medications Medication Instructions Recorded Confirmed Type amiodarone 200 mg PO QAM 09/03/18 12/14/18 History atorvastatin 40 mg PO HS 09/03/18 12/14/18 History calcium acetate 667 mg PO DAILY 09/03/18 12/14/18 History clonazepam 0.5 mg PO HS 09/03/18 12/14/18 History gabapentin 200 mg PO AMHS 09/03/18 12/14/18 History levothyroxine 75 mcg PO QAM 09/03/18 12/14/18 History multivitamin 1 tab PO QAM 09/03/18 12/14/18 History nitroglycerin [Nitrostat] 0.4 mg SUBLINGUAL DIRECTED PRN 09/03/18 12/14/18 History sertraline 100 mg PO HS 09/03/18 12/14/18 History acetaminophen 650 mg PO Q6H PRN 11/30/18 12/14/18 History albuterol sulfate [Ventolin HFA] 2 puff INHALATION Q4H PRN 11/30/18 12/14/18 History aspirin 81 mg PO QAM 11/30/18 12/14/18 History clonazepam 0.5 mg PO TUTHSA 11/30/18 12/14/18 History guaifenesin 400 mg PO Q4H PRN 11/30/18 12/14/18 History ondansetron HCl 4 mg PO Q6H PRN 11/30/18 12/14/18 History amoxicillin-pot clavulanate 1 tab PO DAILY #13 tab 12/04/18 12/14/18 Rx bisacodyl [Dulcolax (bisacodyl)] 10 mg OK DAILY PRN 12/14/18 12/14/18 History citalopram 10 mg PO DAILY 12/14/18 12/14/18 History fentanyl 1 patch TRANSDERMAL Q72H 12/14/18 12/14/18 History fluconazole 100 mg PO DAILY 12/14/18 12/14/18 History hydrocodone-acetaminophen 1 tab PO Q6H PRN 12/14/18 12/14/18 History insulin aspart U-100 [Novolog 10 unit SUBCUT TIDM 12/14/18 12/14/18 History U-100 Insulin aspart] insulin glargine [Lantus Solostar 22 unit SUBCUT HS 12/14/18 12/14/18 History U-100 Insulin] loperamide [Imodium A-D] 2 mg PO TUTHSA 12/14/18 12/14/18 History midodrine 10 mg PO MOWEFR 12/14/18 12/14/18 History midodrine 20 mg PO TUTHSA 12/14/18 12/14/18 History ranitidine HCl 0.5 tab PO DAILY 12/14/18 12/14/18 History sodium phosphates [Fleet Enema] 118 ml OK DAILY PRN 12/14/18 12/14/18 History Patient History Medical History History of fracture of left ankle 08/2018 ORIF trimalleolar fx Depression (Chronic) Left midfoot ulcer (Acute) Type 2 diabetes mellitus with diabetic neuropathy (Chronic) Acquired claw toe of right foot (Chronic) Acquired claw toe of left foot (Chronic) Ulcer of right midfoot (Acute) Diabetic retinopathy (Chronic) Paroxysmal atrial fibrillation (Chronic) TIA (transient ischemic attack) (Chronic) GERD (gastroesophageal reflux disease) (Chronic) Pulmonary hypertension (Chronic) Pulmonary embolism (Resolved) DM type 2 (diabetes mellitus, type 2) (Chronic) Chronic diastolic CHF (congestive heart failure) (Chronic) Nonischemic cardiomyopathy (Chronic) EVERTON treated with BiPAP (Chronic) Chronic respiratory failure with hypoxia (Chronic) Symptomatic bradycardia (Chronic) Pacemaker (Chronic) Hypertension (Chronic) Spinal stenosis (Chronic) Osteoarthritis (Chronic) Malignant melanoma (Chronic) Thrombocytopenia (Chronic) 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 Pt has been off coumadin since and not anticoagulation candidate ESRD (end stage renal disease) on dialysis (Chronic) Mitral regurgitation Surgical History H/O total hysterectomy (Chronic) S/P cholecystectomy (Chronic) S/P IVC filter (Chronic) AV fistula Pacemaker Family History Other Diabetes Social History marital status: Current Living Situation: Family Current Living Situation Comment: reports she lives in an apt, has caregivers Mon-Sat Feels Safe at Home: Yes Smoking Status: Unknown if ever smoked Hx Alcohol Use: No Hx Substance Use: No Beliefs That Will Affect Care: None Preferred Language: Cymraes Review of Systems All other systems were reviewed and negative except as noted in HPI Physical Exam 2 Vital Signs (Past 24 Hours): Last Vital Signs Temp 36.4 C L 12/14/18 11:59 Pulse 70 12/14/18 16:38 Resp 22 12/14/18 16:38 BP 126/82 12/14/18 16:38 Pulse Ox 100 12/14/18 16:38 Physical Exam: General exam: Patient in respiratory distress HEENT: Pupils are equal and reactive to light Neck: No JVD, neck is supple trachea is midline Respiratory system: Crackles and wheezing bilaterally. Gastrointestinal: Abdomen is soft, non distended, non tender, bowel sounds are present CVS: Regular rate and rhythm. No murmurs, rubs or gallops Musculoskeletal: No joint or muscle tenderness Extremities: Non tender, 2+ edema, peripheral pulses are present Neuro: Oriented, no tremors, no focal neurological deficits Skin: Some open areas on the legs and sacral pressure sore Results & Data Laboratory Results Labs reviewed potassium 4.8 creatinine of 5 Diagnostic Findings X-ray showing pulmonary vascular congestion _ (1) Sepsis Sepsis type: sepsis due to unspecified organism Qualified Code(s): A41.9 - Sepsis, unspecified organism
[2018-12-14] MEDS ORDERED: SODIUM CHLORIDE 0.9% 1000ML 1,000 ML IV PRN (17:28)
--- NOTE | 2018-12-14 17:40 | Emergency Department Note ---
Entered by Sanna Spencer acting as a scribe for History of Present Illness General Chief complaint: Lethargic Time Seen by Provider: 12/14/18 12:05 Source: family (son) and other (nursing staff) History of Present Illness Onset (ago): hour(s) (this morning) Location: head, upper extremity and lower extremity Pain Consistency: + other (sudden) Quality: + other (lethargy) Associated symptoms: + other (Positive unresponsiveness and asystole upon EMS arrival, doubling of liver enzymes. Negative recent falls. 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 As per nursing staff, the patient is from [facility] and was getting ready to leave for her dialysis treatment this morning as she is on a Sunday, , Sunday schedule. When staff got there, she was unresponsive and asystolic. She is accompanied by her son who reports the patient was more confused than usual this morning. He states her liver enzymes at [facility] were tested and they were doubled. Her son denies the patient having any recent falls. HPI is limited secondary to patient's medical status. 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 Home Medications Home Medications Medication Instructions Recorded Confirmed Type amiodarone 200 mg PO QAM 09/03/18 12/14/18 History atorvastatin 40 mg PO HS 09/03/18 12/14/18 History calcium acetate 667 mg PO DAILY 09/03/18 12/14/18 History clonazepam 0.5 mg PO HS 09/03/18 12/14/18 History gabapentin 200 mg PO AMHS 09/03/18 12/14/18 History levothyroxine 75 mcg PO QAM 09/03/18 12/14/18 History multivitamin 1 tab PO QAM 09/03/18 12/14/18 History nitroglycerin [Nitrostat] 0.4 mg SUBLINGUAL DIRECTED PRN 09/03/18 12/14/18 History sertraline 100 mg PO HS 09/03/18 12/14/18 History acetaminophen 650 mg PO Q6H PRN 11/30/18 12/14/18 History albuterol sulfate [Ventolin HFA] 2 puff INHALATION Q4H PRN 11/30/18 12/14/18 History aspirin 81 mg PO QAM 11/30/18 12/14/18 History clonazepam 0.5 mg PO TUTHSA 11/30/18 12/14/18 History guaifenesin 400 mg PO Q4H PRN 11/30/18 12/14/18 History ondansetron HCl 4 mg PO Q6H PRN 11/30/18 12/14/18 History amoxicillin-pot clavulanate 1 tab PO DAILY #13 tab 12/04/18 12/14/18 Rx bisacodyl [Dulcolax (bisacodyl)] 10 mg DE DAILY PRN 12/14/18 12/14/18 History citalopram 10 mg PO DAILY 12/14/18 12/14/18 History fentanyl 1 patch TRANSDERMAL Q72H 12/14/18 12/14/18 History fluconazole 100 mg PO DAILY 12/14/18 12/14/18 History hydrocodone-acetaminophen 1 tab PO Q6H PRN 12/14/18 12/14/18 History insulin aspart U-100 [Novolog 10 unit SUBCUT TIDM 12/14/18 12/14/18 History U-100 Insulin aspart] insulin glargine [Lantus Solostar 22 unit SUBCUT HS 12/14/18 12/14/18 History U-100 Insulin] loperamide [Imodium A-D] 2 mg PO TUTA 12/14/18 12/14/18 History midodrine 10 mg PO MOWEFR 12/14/18 12/14/18 History midodrine 20 mg PO TUTA 12/14/18 12/14/18 History ranitidine HCl 0.5 tab PO DAILY 12/14/18 12/14/18 History sodium phosphates [Fleet Enema] 118 ml DE DAILY PRN 12/14/18 12/14/18 History Allergies Allergy/AdvReac Type Severity Reaction Status Date / Time Iodinated Contrast- Oral and Allergy Mild "Contrast Verified 12/14/18 12:44 IV Dye Media" -- unknown rxn adhesive Allergy Unknown "Tape" -- Verified 12/14/18 12:44 unknown rxn morphine Allergy Unknown UNKNOWN Verified 12/14/18 12:44 warfarin Allergy Unknown HYPERSENSIT Verified 12/14/18 12:44 IVITY/BLEED ING tomato AdvReac Intermediate GI SYMPTOMS Verified 12/14/18 12:44 Past Med/Surg History Medical History History of fracture of left ankle 08/2018 ORIF trimalleolar fx Depression (Chronic) Left midfoot ulcer (Acute) Type 2 diabetes mellitus with diabetic neuropathy (Chronic) Acquired claw toe of right foot (Chronic) Acquired claw toe of left foot (Chronic) Ulcer of right midfoot (Acute) Diabetic retinopathy (Chronic) Paroxysmal atrial fibrillation (Chronic) TIA (transient ischemic attack) (Chronic) GERD (gastroesophageal reflux disease) (Chronic) Pulmonary hypertension (Chronic) Pulmonary embolism (Resolved) DM type 2 (diabetes mellitus, type 2) (Chronic) Chronic diastolic CHF (congestive heart failure) (Chronic) Nonischemic cardiomyopathy (Chronic) [place] treated with BiPAP (Chronic) Chronic respiratory failure with hypoxia (Chronic) Symptomatic bradycardia (Chronic) Pacemaker (Chronic) Hypertension (Chronic) Spinal stenosis (Chronic) Osteoarthritis (Chronic) Malignant melanoma (Chronic) Thrombocytopenia (Chronic) 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 Pt has been off coumadin since and not anticoagulation candidate ESRD (end stage renal disease) on dialysis (Chronic) Mitral regurgitation Surgical History H/O total hysterectomy (Chronic) S/P cholecystectomy (Chronic) S/P IVC filter (Chronic) AV fistula Pacemaker Family History Other Diabetes Social History marital status: Current Living Situation: Family Current Living Situation Comment: reports she lives in an apt, has caregivers Mon-Sat Feels Safe at Home: Yes Smoking Status: Unknown if ever smoked Hx Alcohol Use: No Hx Substance Use: No Beliefs That Will Affect Care: None Preferred Language: Trinidadian Review of Systems Unobtainable due to cognitive status Physical Exam Vital Signs Vital Signs - 24 hr 12/14/18 11:54 12/14/18 11:59 12/14/18 12:10 Temperature 36.4 C L Temperature Source Oral Sepsis Recent Fever Within 48 Hours No Sepsis Action Taken by Nursing No Action Required Pulse Rate 73 70 Pulse Rate [Right Apical] Pulse Rhythm Regular Pulse Rhythm [Right Apical] Pulse Strength Normal Respiratory Rate 20 20 Respiratory Effort / Characteristics Non-Labored Spontaneous Respiratory Depth Normal Blood Pressure 96/43 L 96/43 L Blood Pressure [Left Arm] Blood Pressure Mean 60 60 Blood Pressure Mean [Left Arm] Blood Pressure Position Lying Blood Pressure Position [Left Arm] Pulse Oximetry 100 86 L 99 Oxygen Delivery Method Room Air Nasal Cannula Oxygen Flow Rate 2 12/14/18 12:12 12/14/18 12:20 12/14/18 12:30 Temperature Temperature Source Sepsis Recent Fever Within 48 Hours Sepsis Action Taken by Nursing Pulse Rate 72 70 71 Pulse Rate [Right Apical] Pulse Rhythm Pulse Rhythm [Right Apical] Pulse Strength Respiratory Rate 21 27 H 18 Respiratory Effort / Characteristics Respiratory Depth Blood Pressure Blood Pressure [Left Arm] Blood Pressure Mean Blood Pressure Mean [Left Arm] Blood Pressure Position Blood Pressure Position [Left Arm] Pulse Oximetry 100 98 98 Oxygen Delivery Method Oxygen Flow Rate 12/14/18 12:40 12/14/18 12:50 12/14/18 13:00 Temperature Temperature Source Sepsis Recent Fever Within 48 Hours Sepsis Action Taken by Nursing Pulse Rate 70 70 70 Pulse Rate [Right Apical] Pulse Rhythm Pulse Rhythm [Right Apical] Pulse Strength Respiratory Rate 23 18 17 Respiratory Effort / Characteristics Respiratory Depth Blood Pressure Blood Pressure [Left Arm] Blood Pressure Mean Blood Pressure Mean [Left Arm] Blood Pressure Position Blood Pressure Position [Left Arm] Pulse Oximetry 98 98 96 Oxygen Delivery Method Oxygen Flow Rate 12/14/18 13:10 12/14/18 13:11 12/14/18 13:15 Temperature Temperature Source Sepsis Recent Fever Within 48 Hours Sepsis Action Taken by Nursing Pulse Rate 70 70 70 Pulse Rate [Right Apical] Pulse Rhythm Pulse Rhythm [Right Apical] Pulse Strength Respiratory Rate 23 23 21 Respiratory Effort / Characteristics Respiratory Depth Blood Pressure 88/44 L 90/43 L Blood Pressure [Left Arm] Blood Pressure Mean 58 58 Blood Pressure Mean [Left Arm] Blood Pressure Position Blood Pressure Position [Left Arm] Pulse Oximetry 99 100 98 Oxygen Delivery Method Oxygen Flow Rate 12/14/18 13:20 12/14/18 13:30 12/14/18 13:40 Temperature Temperature Source Sepsis Recent Fever Within 48 Hours Sepsis Action Taken by Nursing Pulse Rate 73 70 70 Pulse Rate [Right Apical] Pulse Rhythm Pulse Rhythm [Right Apical] Pulse Strength Respiratory Rate 15 16 18 Respiratory Effort / Characteristics Respiratory Depth Blood Pressure 84/40 L Blood Pressure [Left Arm] Blood Pressure Mean 54 Blood Pressure Mean [Left Arm] Blood Pressure Position Blood Pressure Position [Left Arm] Pulse Oximetry 98 99 98 Oxygen Delivery Method Oxygen Flow Rate 12/14/18 13:45 12/14/18 13:49 12/14/18 13:50 Temperature Temperature Source Sepsis Recent Fever Within 48 Hours Sepsis Action Taken by Nursing Pulse Rate 70 70 70 Pulse Rate [Right Apical] Pulse Rhythm Pulse Rhythm [Right Apical] Pulse Strength Respiratory Rate 19 19 17 Respiratory Effort / Characteristics Respiratory Depth Blood Pressure 73/38 L 81/34 L Blood Pressure [Left Arm] Blood Pressure Mean 49 49 Blood Pressure Mean [Left Arm] Blood Pressure Position Blood Pressure Position [Left Arm] Pulse Oximetry 97 97 98 Oxygen Delivery Method Oxygen Flow Rate 12/14/18 14:00 12/14/18 14:10 12/14/18 14:16 Temperature Temperature Source Sepsis Recent Fever Within 48 Hours Sepsis Action Taken by Nursing Pulse Rate 70 73 71 Pulse Rate [Right Apical] Pulse Rhythm Pulse Rhythm [Right Apical] Pulse Strength Respiratory Rate 19 19 15 Respiratory Effort / Characteristics Respiratory Depth Blood Pressure 91/42 L 87/41 L Blood Pressure [Left Arm] Blood Pressure Mean 58 56 Blood Pressure Mean [Left Arm] Blood Pressure Position Blood Pressure Position [Left Arm] Pulse Oximetry 98 98 98 Oxygen Delivery Method Oxygen Flow Rate 12/14/18 14:20 12/14/18 14:30 12/14/18 14:40 Temperature Temperature Source Sepsis Recent Fever Within 48 Hours Sepsis Action Taken by Nursing Pulse Rate 71 70 70 Pulse Rate [Right Apical] Pulse Rhythm Pulse Rhythm [Right Apical] Pulse Strength Respiratory Rate 15 17 17 Respiratory Effort / Characteristics Respiratory Depth Blood Pressure 81/34 L Blood Pressure [Left Arm] Blood Pressure Mean 49 Blood Pressure Mean [Left Arm] Blood Pressure Position Blood Pressure Position [Left Arm] Pulse Oximetry 99 98 99 Oxygen Delivery Method Oxygen Flow Rate 12/14/18 14:45 12/14/18 14:47 12/14/18 14:50 Temperature Temperature Source Sepsis Recent Fever Within 48 Hours Sepsis Action Taken by Nursing Pulse Rate 70 73 70 Pulse Rate [Right Apical] Pulse Rhythm Pulse Rhythm [Right Apical] Pulse Strength Respiratory Rate 20 21 13 Respiratory Effort / Characteristics Respiratory Depth Blood Pressure 76/49 L 77/37 L Blood Pressure [Left Arm] Blood Pressure Mean 58 50 Blood Pressure Mean [Left Arm] Blood Pressure Position Blood Pressure Position [Left Arm] Pulse Oximetry 97 98 98 Oxygen Delivery Method Oxygen Flow Rate 12/14/18 14:51 12/14/18 14:53 12/14/18 14:56 Temperature Temperature Source Sepsis Recent Fever Within 48 Hours Sepsis Action Taken by Nursing Pulse Rate 70 70 73 Pulse Rate [Right Apical] Pulse Rhythm Pulse Rhythm [Right Apical] Pulse Strength Respiratory Rate 21 19 21 Respiratory Effort / Characteristics Respiratory Depth Blood Pressure 74/48 L 84/25 L 87/26 L Blood Pressure [Left Arm] Blood Pressure Mean 56 44 46 Blood Pressure Mean [Left Arm] Blood Pressure Position Blood Pressure Position [Left Arm] Pulse Oximetry 97 97 99 Oxygen Delivery Method Oxygen Flow Rate 12/14/18 15:00 12/14/18 15:05 12/14/18 15:10 Temperature Temperature Source Sepsis Recent Fever Within 48 Hours Sepsis Action Taken by Nursing Pulse Rate 70 70 70 Pulse Rate [Right Apical] Pulse Rhythm Pulse Rhythm [Right Apical] Pulse Strength Respiratory Rate 22 15 22 Respiratory Effort / Characteristics Respiratory Depth Blood Pressure 88/33 L 84/37 L Blood Pressure [Left Arm] Blood Pressure Mean 51 52 Blood Pressure Mean [Left Arm] Blood Pressure Position Blood Pressure Position [Left Arm] Pulse Oximetry 98 99 99 Oxygen Delivery Method Oxygen Flow Rate 12/14/18 15:11 12/14/18 15:15 12/14/18 15:20 Temperature Temperature Source Sepsis Recent Fever Within 48 Hours Sepsis Action Taken by Nursing Pulse Rate 70 70 74 Pulse Rate [Right Apical] Pulse Rhythm Pulse Rhythm [Right Apical] Pulse Strength Respiratory Rate 19 20 22 Respiratory Effort / Characteristics Respiratory Depth Blood Pressure 77/46 L 66/37 L 82/48 L Blood Pressure [Left Arm] Blood Pressure Mean 56 46 59 Blood Pressure Mean [Left Arm] Blood Pressure Position Blood Pressure Position [Left Arm] Pulse Oximetry 100 100 98 Oxygen Delivery Method Oxygen Flow Rate 12/14/18 15:26 12/14/18 15:30 12/14/18 15:31 Temperature Temperature Source Sepsis Recent Fever Within 48 Hours Sepsis Action Taken by Nursing Pulse Rate 76 70 70 Pulse Rate [Right Apical] Pulse Rhythm Pulse Rhythm [Right Apical] Pulse Strength Respiratory Rate 16 18 23 Respiratory Effort / Characteristics Respiratory Depth Blood Pressure 73/19 L 84/39 L Blood Pressure [Left Arm] Blood Pressure Mean 37 54 Blood Pressure Mean [Left Arm] Blood Pressure Position Blood Pressure Position [Left Arm] Pulse Oximetry 95 95 Oxygen Delivery Method Oxygen Flow Rate 12/14/18 15:36 12/14/18 15:40 12/14/18 15:41 Temperature Temperature Source Sepsis Recent Fever Within 48 Hours Sepsis Action Taken by Nursing Pulse Rate 70 70 71 Pulse Rate [Right Apical] Pulse Rhythm Pulse Rhythm [Right Apical] Pulse Strength Respiratory Rate 18 20 19 Respiratory Effort / Characteristics Respiratory Depth Blood Pressure 85/37 L 92/57 L Blood Pressure [Left Arm] Blood Pressure Mean 53 68 Blood Pressure Mean [Left Arm] Blood Pressure Position Blood Pressure Position [Left Arm] Pulse Oximetry 98 98 98 Oxygen Delivery Method Oxygen Flow Rate 12/14/18 15:46 12/14/18 15:50 12/14/18 15:51 Temperature Temperature Source Sepsis Recent Fever Within 48 Hours Sepsis Action Taken by Nursing Pulse Rate 72 71 71 Pulse Rate [Right Apical] Pulse Rhythm Pulse Rhythm [Right Apical] Pulse Strength Respiratory Rate 20 19 14 Respiratory Effort / Characteristics Respiratory Depth Blood Pressure 74/23 L 88/15 L Blood Pressure [Left Arm] Blood Pressure Mean 40 39 Blood Pressure Mean [Left Arm] Blood Pressure Position Blood Pressure Position [Left Arm] Pulse Oximetry 100 100 100 Oxygen Delivery Method Oxygen Flow Rate 12/14/18 15:56 12/14/18 16:00 12/14/18 16:01 Temperature Temperature Source Sepsis Recent Fever Within 48 Hours Sepsis Action Taken by Nursing Pulse Rate 73 72 72 Pulse Rate [Right Apical] Pulse Rhythm Pulse Rhythm [Right Apical] Pulse Strength Respiratory Rate 18 13 19 Respiratory Effort / Characteristics Respiratory Depth Blood Pressure 82/58 L 92/43 L Blood Pressure [Left Arm] Blood Pressure Mean 66 59 Blood Pressure Mean [Left Arm] Blood Pressure Position Blood Pressure Position [Left Arm] Pulse Oximetry 97 99 99 Oxygen Delivery Method Oxygen Flow Rate 12/14/18 16:05 12/14/18 16:09 12/14/18 16:10 Temperature Temperature Source Sepsis Recent Fever Within 48 Hours Sepsis Action Taken by Nursing Pulse Rate 70 70 Pulse Rate [Right Apical] 70 Pulse Rhythm Pulse Rhythm [Right Apical] Regular Pulse Strength Respiratory Rate 17 24 20 Respiratory Effort / Characteristics Respiratory Depth Blood Pressure 82/62 L Blood Pressure [Left Arm] 82/52 L Blood Pressure Mean 68 Blood Pressure Mean [Left Arm] 62 Blood Pressure Position Blood Pressure Position [Left Arm] Lying Pulse Oximetry 98 100 99 Oxygen Delivery Method Nasal Cannula Oxygen Flow Rate 4 12/14/18 16:12 12/14/18 16:14 12/14/18 16:17 Temperature Temperature Source Sepsis Recent Fever Within 48 Hours Sepsis Action Taken by Nursing Pulse Rate 70 70 Pulse Rate [Right Apical] 71 Pulse Rhythm Pulse Rhythm [Right Apical] Pulse Strength Respiratory Rate 17 22 15 Respiratory Effort / Characteristics Respiratory Depth Blood Pressure 102/58 L 136/43 L Blood Pressure [Left Arm] 102/58 L Blood Pressure Mean 72 74 Blood Pressure Mean [Left Arm] 72 Blood Pressure Position Blood Pressure Position [Left Arm] Lying Pulse Oximetry 100 97 100 Oxygen Delivery Method Nasal Cannula Oxygen Flow Rate 4 12/14/18 16:20 12/14/18 16:22 12/14/18 16:30 Temperature Temperature Source Sepsis Recent Fever Within 48 Hours Sepsis Action Taken by Nursing Pulse Rate 78 73 71 Pulse Rate [Right Apical] Pulse Rhythm Pulse Rhythm [Right Apical] Pulse Strength Respiratory Rate 29 H 18 22 Respiratory Effort / Characteristics Respiratory Depth Blood Pressure 107/61 Blood Pressure [Left Arm] Blood Pressure Mean 76 Blood Pressure Mean [Left Arm] Blood Pressure Position Blood Pressure Position [Left Arm] Pulse Oximetry 100 96 100 Oxygen Delivery Method Oxygen Flow Rate 12/14/18 16:31 12/14/18 16:38 Temperature Temperature Source Sepsis Recent Fever Within 48 Hours Sepsis Action Taken by Nursing Pulse Rate 70 70 Pulse Rate [Right Apical] Pulse Rhythm Pulse Rhythm [Right Apical] Pulse Strength Respiratory Rate 18 22 Respiratory Effort / Characteristics Respiratory Depth Blood Pressure 134/51 L 126/82 Blood Pressure [Left Arm] Blood Pressure Mean 78 Blood Pressure Mean [Left Arm] Blood Pressure Position Blood Pressure Position [Left Arm] Pulse Oximetry 100 100 Oxygen Delivery Method Nasal Cannula Oxygen Flow Rate 2 GENERAL: Distressed, alert, not oriented HENT: Exam performed. Head: Normocephalic and atraumatic. Right Ear: External ear normal. No mastoid tenderness. Left Ear: External ear normal. No mastoid tenderness. Mouth/Throat: The oropharynx is clear and moist. No trismus in the jaw. No dental abscesses or uvula swelling. No oropharyngeal exudate or tonsillar abscesses. ____ EYES: Conjunctivae and EOM are normal. Pupils are equal, round, and reactive to light. Right eye exhibits no discharge. Left eye exhibits no discharge. No scleral icterus. ____ NECK: Normal range of motion. Neck supple. No JVD present. No spinous process tenderness present. No carotid bruit present. No rigidity. No tracheal deviation and normal range of motion present. No Brudzinski's sign and no Kernig 's sign noted. ____ CV: Normal rate, regular rhythm, normal heart sounds and intact distal pulses. There is no peripheral edema. Palpable radial pulses bue. ____ PULM/CHEST: Effort normal and breath sounds normal. No respiratory distress. No stridor. She has no wheezes. Rhonchi bilaterally. Rales at the bases bilaterally Chest Wall: She exhibits no tenderness. ____ ABD: The abdomen is soft. Bowel sounds are normal. She has no distension. No mass is present. There is no tenderness. There is no rebound, no guarding, no العلي's sign and no tenderness at McBurney's point. Rovsig negative MUSC/SKEL: Normal range of motion. There is no peripheral edema, tenderness or deformity. LUE has an AV fistula with a palpable thrill. LLE is swollen LYMPH: No cervical adenopathy. ____ NEURO: She is alert and oriented to person, place, and time. She has normal strength. No cranial nerve deficit or sensory deficit. Coordination and gait normal. GCS eye subscore is 4. GCS verbal subscore is 5. GCS motor subscore is 6. cerbellar tests wnl. ____ SKIN: Skin is warm and dry. She is not diaphoretic. ____Fentanyl in place over the right shoulder; Subsequently removed PSYCH: She has a normal mood and affect. Her behavior is normal. Judgment and thought content normal. ____ Procedures Central Line Placement Right Femoral: Time Out Performed: Yes Patient Placed on Monitor/Pulse Ox: Yes MD Prep: mask, gown and gloves Central Line Prep: Chlorhexidine scrub Local Anesthetic: lidocaine 1% Amount of anesthesia used (mL): 5 Ultrasound Used for Placement: Yes Central Line Lumen Inserted: triple Post Procedure: sutured in place, good blood return, all ports aspirated, flushed, capped and sterile dressing applied Patient Tolerated Procedure: well Complications: none Course 1206: Past medical records reviewed. The patient was evaluated in room B6, and a complete history and physical examination were performed. Patient was hypotensive on arrival. Judicious fluids will be given as the patient is a dialysis patient did not receive dialysis today. 1408: Labs show elevated liver enzymes. Her AST was 211. ALT 281. Total bilirubin 1.6. Direct bilirubin 1.1. Troponin level 0.471 which is thought to be due to the patient�s CKD. Total bilirubin at its baseline. Alkaline status baseline. Chest X-ray shows fluid overload with possible consolidation in the right lung. Influenza A test positive. Treated with Tamiflu and antibiotics with A cap, Zosyn, and Vanco. I reviewed the patient's case with ANUEL Hawkins. Kassandra Ewing Hospitalist will evaluate the patient for further management. 1537: Patient remains hypotensive. [facility] recommends the patient be admitted to the ICU. ICU team recommends the pt have a central line placement in the emergency department so levophed can be started. See procedure note. Levophed started. Consultations Consultation #1: I reviewed the patient's case with BENIGNO Hawkins. Kassandra Ewing Hospitalist will evaluate the patient for further management. Time: 13:56 Administered Medications Sodium Chloride (Nss) 500 mls @ 75 mls/hr IV .Q6H40M JOHANA Stop: 01/13/19 13:14 Last Infusion: 12/14/18 15:35 Dose: 125 mls/hr Infusion: 12/14/18 14:59 Dose: Admin: 12/14/18 14:12 Dose: 75 mls/hr Piperacillin Sod/Tazobactam Sod (Zosyn) 4.5 gm in 120 mls @ 30 mls/hr IV NOW ONE Stop: 12/14/18 17:48 Last Infusion: 12/14/18 15:35 Dose: 0 mls/hr Infusion: 12/14/18 15:10 Dose: 200 mls/hr Infusion: 12/14/18 15:01 Dose: 200 mls/hr Admin: 12/14/18 14:30 Dose: 30 mls/hr Norepinephrine Bitartrate 8 mg (/ Dextrose) 508 mls @ 13.83 mls/hr IV .Q24H [facility] ; Protocol Stop: 01/13/19 14:56 Last Admin: 12/14/18 16:03 Dose: 0.05 mcg/kg/min, 13.8 mls/hr Discontinued Medications Sodium Chloride (Nss 250ml) 250 mls @ 999 mls/hr IV .Q16M ONE Stop: 12/14/18 13:26 Last Infusion: 12/14/18 14:09 Dose: 0 mls/hr Admin: 12/14/18 13:15 Dose: 999 mls/hr Vancomycin HCl (Vancomycin Hcl) 1,000 mg in 270 mls @ 125 mls/hr IV NOW STA Stop: 12/14/18 15:58 Last Infusion: 12/14/18 15:35 Dose: 125 mls/hr Admin: 12/14/18 14:30 Dose: 125 mls/hr Oseltamivir Phosphate (Tamiflu) 75 mg PO NOW STA Stop: 12/14/18 14:10 Last Admin: 12/14/18 14:30 Dose: 75 mg Medical Decision Making Medical Records Attestation: I reviewed the patient's medical records. Home Medications Current Medication List: was personally reviewed by me Laboratory Data Attestation: I reviewed the patient's lab results. Result diagrams: 12/14/18 11:10 12/14/18 11:10 Lab Results 12/14/18 12/14/18 12/14/18 Range/Units 11:10 11:10 12:29 WBC 8.95 (4.8-10.8) K/uL RBC 3.35 L (4.2-5.4) M/uL Hgb 10.8 L (12.0-16.0) g/dL Hct 33.9 L (37-47) % MCV 101.2 H (80-100) fL MCH 32.2 (25-34) pg MCHC 31.9 L (32-36) g/dL RDW Std Deviation 75.3 H (36.4-46.3) fL RDW Coeff of Anatoly 21.0 H (11.5-14.5) % Plt Count 69 L (130-400) K/uL Immature Gran % (Auto) 0.3 % Neut % (Auto) 78.9 % Lymph % (Auto) 9.7 % Zapata % (Auto) 10.1 % Eos % (Auto) 0.8 % Baso % (Auto) 0.2 % Immature Gran # (Auto) 0.03 H (0.00-0.02) K/uL Neut # (Auto) 7.06 H (1.4-6.5) K/uL Lymph # (Auto) 0.87 L (1.2-3.4) K/uL Zapata # (Auto) 0.90 H (0.11-0.59) K/uL Eos # (Auto) 0.07 (0-0.5) K/uL Baso # (Auto) 0.02 (0-0.2) K/uL Platelet Estimate Decreased (Normal) Anisocytosis Present Target Cells 1+ PT 12.1 H (9.0-12.0) Seconds INR 1.2 H (0.9-1.1) APTT 27.5 (21.0-31.0) Seconds PTT Ratio 1.1 VBG pH (7.36-7.41) VBG pCO2 (38-50) mmHg VBG pO2 mmHg VBG HCO3 mmol/L VBG O2 Saturation % VBG Base Excess mEq/L Barometric Pressure mm/Hg Sodium 131 L (136-145) mmol/L Potassium 4.8 (3.5-5.1) mmol/L Chloride 94 L (98-107) mmol/L Carbon Dioxide 31 (21-32) mmol/L Anion Gap 6.0 (3-11) BUN 37 H (7-18) mg/dl Creatinine 5.02 H* (0.6-1.2) mg/dl Est Cr Clr Drug Dosing Not Reportable Est GFR ( Amer) 9.1 Est GFR (Non-Af Amer) 7.8 BUN/Creatinine Ratio 7.4 L (10-20) Glucose 130 H (70-99) mg/dl Lactate (0.4-2.0) mmol/L Calcium 8.4 L (8.5-10.1) mg/dl Total Bilirubin 1.6 H (0.2-1) mg/dl Direct Bilirubin 1.1 H (0-0.2) mg/dl AST 311 H (15-37) U/L ALT 281 H (12-78) U/L Alkaline Phosphatase 296 H (45-117) U/L Ammonia (11-32) umol/L Troponin I 0.471 H* (0-0.045) ng/ml Total Protein 6.3 L (6.4-8.2) gm/dl Albumin 2.6 L (3.4-5.0) gm/dl Lipase 52 L (73-393) U/L Influenza Type A (PCR) (Neg) Influenza Type B (PCR) (Neg) 12/14/18 12/14/18 12/14/18 Range/Units 12:29 12:29 12:29 WBC (4.8-10.8) K/uL RBC (4.2-5.4) M/uL Hgb (12.0-16.0) g/dL Hct (37-47) % MCV (80-100) fL MCH (25-34) pg MCHC (32-36) g/dL RDW Std Deviation (36.4-46.3) fL RDW Coeff of Anatoly (11.5-14.5) % Plt Count (130-400) K/uL Immature Gran % (Auto) % Neut % (Auto) % Lymph % (Auto) % [place] % (Auto) % Eos % (Auto) % Baso % (Auto) % Immature Gran # (Auto) (0.00-0.02) K/uL Neut # (Auto) (1.4-6.5) K/uL Lymph # (Auto) (1.2-3.4) K/uL Z[place]ata # (Auto) (0.11-0.59) K/uL Eos # (Auto) (0-0.5) K/uL Baso # (Auto) (0-0.2) K/uL Platelet Estimate (Normal) Anisocytosis Target Cells PT (9.0-12.0) Seconds INR (0.9-1.1) APTT (21.0-31.0) Seconds PTT Ratio VBG pH 7.35 L (7.36-7.41) VBG pCO2 57 H (38-50) mmHg VBG pO2 37 mmHg VBG HCO3 31 mmol/L VBG O2 Saturation 64.7 % VBG Base Excess 4.4 mEq/L Barometric Pressure 748.6 mm/Hg Sodium (136-145) mmol/L Potassium (3.5-5.1) mmol/L Chloride (98-107) mmol/L Carbon Dioxide (21-32) mmol/L Anion Gap (3-11) BUN (7-18) mg/dl Creatinine (0.6-1.2) mg/dl Est Cr Clr Drug Dosing Est GFR ( Amer) Est GFR (Non-Af Amer) BUN/Creatinine Ratio (10-20) Glucose (70-99) mg/dl Lactate 1.7 (0.4-2.0) mmol/L Calcium (8.5-10.1) mg/dl Total Bilirubin (0.2-1) mg/dl Direct Bilirubin (0-0.2) mg/dl AST (15-37) U/L ALT (12-78) U/L Alkaline Phosphatase (45-117) U/L Ammonia 28.1 (11-32) umol/L Troponin I (0-0.045) ng/ml Total Protein (6.4-8.2) gm/dl Albumin (3.4-5.0) gm/dl Lipase (73-393) U/L Influenza Type A (PCR) (Neg) Influenza Type B (PCR) (Neg) 12/14/18 Range/Units 13:05 WBC (4.8-10.8) K/uL RBC (4.2-5.4) M/uL Hgb (12.0-16.0) g/dL Hct (37-47) % MCV (80-100) fL MCH (25-34) pg MCHC (32-36) g/dL RDW Std Deviation (36.4-46.3) fL RDW Coeff of Anatoly (11.5-14.5) % Plt Count (130-400) K/uL Immature Gran % (Auto) % Neut % (Auto) % Lymph % (Auto) % [place] % (Auto) % Eos % (Auto) % Baso % (Auto) % Immature Gran # (Auto) (0.00-0.02) K/uL Neut # (Auto) (1.4-6.5) K/uL Lymph # (Auto) (1.2-3.4) K/uL [place]ata # (Auto) (0.11-0.59) K/uL Eos # (Auto) (0-0.5) K/uL Baso # (Auto) (0-0.2) K/uL Platelet Estimate (Normal) Anisocytosis Target Cells PT (9.0-12.0) Seconds INR (0.9-1.1) APTT (21.0-31.0) Seconds PTT Ratio VBG pH (7.36-7.41) VBG pCO2 (38-50) mmHg VBG pO2 mmHg VBG HCO3 mmol/L VBG O2 Saturation % VBG Base Excess mEq/L Barometric Pressure mm/Hg Sodium (136-145) mmol/L Potassium (3.5-5.1) mmol/L Chloride (98-107) mmol/L Carbon Dioxide (21-32) mmol/L Anion Gap (3-11) BUN (7-18) mg/dl Creatinine (0.6-1.2) mg/dl Est Cr Clr Drug Dosing Est GFR ( Amer) Est GFR (Non-Af Amer) BUN/Creatinine Ratio (10-20) Glucose (70-99) mg/dl Lactate (0.4-2.0) mmol/L Calcium (8.5-10.1) mg/dl Total Bilirubin (0.2-1) mg/dl Direct Bilirubin (0-0.2) mg/dl AST (15-37) U/L ALT (12-78) U/L Alkaline Phosphatase (45-117) U/L Ammonia (11-32) umol/L Troponin I (0-0.045) ng/ml Total Protein (6.4-8.2) gm/dl Albumin (3.4-5.0) gm/dl Lipase (73-393) U/L Influenza Type A (PCR) Pos for Influ A A* (Neg) Influenza Type B (PCR) Neg for Influ B (Neg) Imaging Data Radiologist's Impression: Radiology results as stated below per my review and the radiologist's interpretation: SINGLE VIEW CHEST CLINICAL HISTORY: Lethargy. FINDINGS: An AP, portable, upright chest radiograph is compared to study dated . Correlation is made with chest CT dated 01/26/2018. The examination is significantly degraded by portable technique, apical lordotic positioning, and patient rotation. A 2-lead cardiac pacemaker is unchanged in position. The heart is enlarged and there is atherosclerotic calcification of the thoracic aorta. There is pulmonary vascular congestion. Bibasilar atelectasis is noted. There is developing airspace consolidation at the right lung base. Trace pleural effusions are suspected. No pneumothorax is seen. The skeletal structures are osteopenic. There are healed bilateral rib fractures. IMPRESSION: 1. Cardiomegaly and cardiac pacemaker with evidence of congestive failure. 2. There is developing airspace consolidation at the right lung base. Correlate clinically for evidence of pneumonia/aspiration pneumonitis. Radiographic follow -up to resolution is recommended. 3. Suspect trace pleural effusions. Electronically signed by: Rey Cardoza M.D. 12/14/2018 1:42 PM ECG Data Attestation: I personally reviewed and interpreted this ECG as follows: Indication: other (lethargy) Rate (beats per minute): 73 Rhythm: other (paced rhythm) Findings: + other (DE interval 148, QRS 122, QTC 497); no ST depression and no ST elevation Blood Pressure Blood Pressure Findings: Low blood pressure Blood Pressure Disposition: further management by hospitalist ANNI Narrative 1206: Past medical records reviewed. The patient was evaluated in room B6, and a complete history and physical examination were performed. Patient was hypotensive on arrival. Judicious fluids will be given as the patient is a dialysis patient did not receive dialysis today. 1408: Labs show elevated liver enzymes. Her AST was 211. ALT 281. Total bilirubin 1.6. Direct bilirubin 1.1. Troponin level 0.471 which is thought to be due to the patient�s CKD. Total bilirubin at its baseline. Alkaline status baseline. Chest X-ray shows fluid overload with possible consolidation in the right lung. Influenza A test positive. Treated with Tamiflu and antibiotics with A cap, Zosyn, and Vanco. I reviewed the patient's case with ANUEL Hawkins. Kassandra Ewing Hospitalist will evaluate the patient for further management. 1537: Patient remains hypotensive. [facility] Hospitalist team recommends the patient be admitted to the ICU. ICU team recommends the pt have a central line placement in the emergency department so levophed can be started. See procedure note. Levophed started. Impression & Plan HCAP (healthcare-associated pneumonia), Elevated troponin, Fluid overload, Sepsis, Influenza A, Elevated liver enzymes Critical Care Time I have personally spent greater than 75 minutes of critical care time in the direct management of this patient. This includes bedside care, interpretation of diagnostic studies, and testing, discussion with consultants, patient, and family members, and other required patient management activities. This 75 minutes is in excess of all separately billable procedures. Critical Care Time: Yes Total Critical Care Time: 75 Discharge Plan Visit Data *Final* Discharge Date/Time: 12/14/18 16:38 Chief Complaint: Lethargic Other Complaint: Confusion ED Provider: Nicolas Estes Discharge Problem: HCAP (healthcare-associated pneumonia), Elevated troponin, Fluid overload, Sepsis, Influenza A, Elevated liver enzymes Patient Disposition: Admitted As Inpatient Discharge Instructions Interventions: ED Discharge Assessment Last Done: 12/14/18 16:38 Sepsis Evaluation Sepsis screening result: No Definite Risk Current stage of sepsis: sepsis Persistent hypotension: SBP < 90 mmHg Possible source: pulmonary Focused Exam Date exam was performed: 12/14/18 Vital Signs Temp Pulse Pulse Resp BP BP Pulse Ox 12/14/18 16:38 70 22 126/82 100 12/14/18 16:31 70 18 134/51 L 100 12/14/18 16:30 71 22 100 12/14/18 16:22 73 18 107/61 96 12/14/18 16:20 78 29 H 100 12/14/18 16:17 70 15 136/43 L 100 12/14/18 16:14 71 22 102/58 L 97 12/14/18 16:12 70 17 102/58 L 100 12/14/18 16:10 70 20 99 12/14/18 16:09 70 24 82/52 L 100 12/14/18 16:05 70 17 82/62 L 98 12/14/18 16:01 72 19 92/43 L 99 12/14/18 16:00 72 13 99 12/14/18 15:56 73 18 82/58 L 97 12/14/18 15:51 71 14 88/15 L 100 12/14/18 15:50 71 19 100 12/14/18 15:46 72 20 74/23 L 100 12/14/18 15:41 71 19 98 12/14/18 15:40 70 20 92/57 L 98 12/14/18 15:36 70 18 85/37 L 98 12/14/18 15:31 70 23 84/39 L 95 12/14/18 15:30 70 18 95 12/14/18 15:26 76 16 73/19 L 12/14/18 15:20 74 22 82/48 L 98 12/14/18 15:15 70 20 66/37 L 100 12/14/18 15:11 70 19 77/46 L 100 12/14/18 15:10 70 22 99 12/14/18 15:05 70 15 84/37 L 99 12/14/18 15:00 70 22 88/33 L 98 12/14/18 14:56 73 21 87/26 L 99 12/14/18 14:53 70 19 84/25 L 97 12/14/18 14:51 70 21 74/48 L 97 12/14/18 14:50 70 13 98 12/14/18 14:47 73 21 77/37 L 98 12/14/18 14:45 70 20 76/49 L 97 12/14/18 14:40 70 17 99 12/14/18 14:30 70 17 81/34 L 98 12/14/18 14:20 71 15 99 12/14/18 14:16 71 15 87/41 L 98 12/14/18 14:10 73 19 98 12/14/18 14:00 70 19 91/42 L 98 12/14/18 13:50 70 17 98 12/14/18 13:49 70 19 81/34 L 97 12/14/18 13:45 70 19 73/38 L 97 12/14/18 13:40 70 18 98 12/14/18 13:30 70 16 84/40 L 99 12/14/18 13:20 73 15 98 12/14/18 13:15 70 21 90/43 L 98 12/14/18 13:11 70 23 100 12/14/18 13:10 70 23 88/44 L 99 12/14/18 13:00 70 17 96 12/14/18 12:50 70 18 98 12/14/18 12:40 70 23 98 12/14/18 12:30 71 18 98 12/14/18 12:20 70 27 H 98 12/14/18 12:12 72 21 100 12/14/18 12:10 99 12/14/18 11:59 36.4 C L 70 20 96/43 L 86 L 12/14/18 11:54 73 20 96/43 L 100 Respiratory exam: Present crackles Cardiovascular exam: Present RRR, S1 and S2 Capillary refill: < 2 Seconds (Instant) Peripheral pulse strength: Normal Skin exam: normal turgor The scribe's documentation has been prepared under my direction and personally reviewed by me in its entirety. I confirm that the note above accurately reflects all work, treatment, procedures, and medical decision making performed by me.
[2018-12-14] MEDS ORDERED: ICU PROTOCOL FOR HYPERGLYCEMIA PRN (17:46)
--- NOTE | 2018-12-14 18:08 | Critical Care Consultation ---
Date of Consultation December 14, 2018 Assessment & Plan (1) HCAP (healthcare-associated pneumonia): The patient currently is very stable. She is hemodynamically stable on Levophed. She was also started on Tamiflu as well as vancomycin and Zosyn. The blood cultures were done. We also going to send the sputum for culture and sensitivity. The patient is also evaluated by the production staff worker and she is going to be dialyzed now. In the meantime we are going to continue with all other management as prescribed. We have also stopped the IV fluids and dialysis is going to be done just now. The patient also has obstructive sleep apnea syndrome and according to her she is on a BiPAP at home at night. We are going to request the facility for the BiPAP so we can apply her BiPAP on her at night. We are going to continue with the current management as prescribed and we are going to maintain the mean arterial pressure of 65 and the bowel. (2) Fluid overload: (3) Sepsis: (4) Influenza A: (5) Acute on chronic right heart failure: History of Present Illness Reason for Consultation: Reason for consultation: pulmonary edema/respiratory failure, influenza positive and shock/hypotension. History of Present Illness This is a 73-year-old female with history of ESRD on dialysis Sunday in [place]. She has a left upper arm AV fistula. Last dialysis was on . She has chronic hypotension with dialysis. She is admitted with acute respiratory distress found to have flu positive. She is in shock requiring Levophed. We have been asked to evaluate her and provide critical care support and treat her for her current septic shock as well as respiratory failure.. Other PMH includes pAF w/o AC, hemorrhagic pericardial effusion, nonischemic [employer], plm HTN, bradycardia s/p pacer, chronic respiratory failure on home ; multiple DVT/PE, hx TIA, DM on insulin, L ankle frx 08/2018 s/p ORIF, hypothyroid, EVERTON on cpap. She dialyzes under the care of Georgie Miller in [facility]. She cannot give much history but is complaining of shortness of breath and fecal incontinence each time she coughs. She is slightly confused. Blood pressure has improved with Levophed. She was receiving normal saline which have asked them to stop. Currently she is hemodynamically stable on Levophed. Requesting Physician: Misael Lieberman MD Attending Physician: Misael Lieberman MD Allergies Allergy/AdvReac Type Severity Reaction Status Date / Time Iodinated Contrast- Oral and Allergy Mild "Contrast Verified 12/14/18 12:44 IV Dye Media" -- unknown rxn adhesive Allergy Unknown "Tape" -- Verified 12/14/18 12:44 unknown rxn morphine Allergy Unknown UNKNOWN Verified 12/14/18 12:44 warfarin Allergy Unknown HYPERSENSIT Verified 12/14/18 12:44 IVITY/BLEED ING tomato AdvReac Intermediate GI SYMPTOMS Verified 12/14/18 12:44 Home Medications Home Medications Medication Instructions Recorded Confirmed Type amiodarone 200 mg PO QAM 09/03/18 12/14/18 History atorvastatin 40 mg PO HS 09/03/18 12/14/18 History calcium acetate 667 mg PO DAILY 09/03/18 12/14/18 History clonazepam 0.5 mg PO HS 09/03/18 12/14/18 History gabapentin 200 mg PO AMHS 09/03/18 12/14/18 History levothyroxine 75 mcg PO QAM 09/03/18 12/14/18 History multivitamin 1 tab PO QAM 09/03/18 12/14/18 History nitroglycerin [Nitrostat] 0.4 mg SUBLINGUAL DIRECTED PRN 09/03/18 12/14/18 History sertraline 100 mg PO HS 09/03/18 12/14/18 History acetaminophen 650 mg PO Q6H PRN 11/30/18 12/14/18 History albuterol sulfate [Ventolin HFA] 2 puff INHALATION Q4H PRN 11/30/18 12/14/18 History aspirin 81 mg PO QAM 11/30/18 12/14/18 History clonazepam 0.5 mg PO TUTHSA 11/30/18 12/14/18 History guaifenesin 400 mg PO Q4H PRN 11/30/18 12/14/18 History ondansetron HCl 4 mg PO Q6H PRN 11/30/18 12/14/18 History amoxicillin-pot clavulanate 1 tab PO DAILY #13 tab 12/04/18 12/14/18 Rx bisacodyl [Dulcolax (bisacodyl)] 10 mg PA DAILY PRN 12/14/18 12/14/18 History citalopram 10 mg PO DAILY 12/14/18 12/14/18 History fentanyl 1 patch TRANSDERMAL Q72H 12/14/18 12/14/18 History fluconazole 100 mg PO DAILY 12/14/18 12/14/18 History hydrocodone-acetaminophen 1 tab PO Q6H PRN 12/14/18 12/14/18 History insulin aspart U-100 [Novolog 10 unit SUBCUT TIDM 12/14/18 12/14/18 History U-100 Insulin aspart] insulin glargine [Lantus Solostar 22 unit SUBCUT HS 12/14/18 12/14/18 History U-100 Insulin] loperamide [Imodium A-D] 2 mg PO TUTHSA 12/14/18 12/14/18 History midodrine 10 mg PO MOWEFR 12/14/18 12/14/18 History midodrine 20 mg PO TUTHSA 12/14/18 12/14/18 History ranitidine HCl 0.5 tab PO DAILY 12/14/18 12/14/18 History sodium phosphates [Fleet Enema] 118 ml PA DAILY PRN 12/14/18 12/14/18 History Patient History Medical History History of fracture of left ankle 08/2018 ORIF trimalleolar fx Depression (Chronic) Left midfoot ulcer (Acute) Type 2 diabetes mellitus with diabetic neuropathy (Chronic) Acquired claw toe of right foot (Chronic) Acquired claw toe of left foot (Chronic) Ulcer of right midfoot (Acute) Diabetic retinopathy (Chronic) Paroxysmal atrial fibrillation (Chronic) TIA (transient ischemic attack) (Chronic) GERD (gastroesophageal reflux disease) (Chronic) Pulmonary hypertension (Chronic) Pulmonary embolism (Resolved) DM type 2 (diabetes mellitus, type 2) (Chronic) Chronic diastolic CHF (congestive heart failure) (Chronic) Nonischemic cardiomyopathy (Chronic) EVERTON treated with BiPAP (Chronic) Chronic respiratory failure with hypoxia (Chronic) Symptomatic bradycardia (Chronic) Pacemaker (Chronic) Hypertension (Chronic) Spinal stenosis (Chronic) Osteoarthritis (Chronic) Malignant melanoma (Chronic) Thrombocytopenia (Chronic) 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 Pt has been off coumadin since and not anticoagulation candidate ESRD (end stage renal disease) on dialysis (Chronic) Mitral regurgitation Surgical History H/O total hysterectomy (Chronic) S/P cholecystectomy (Chronic) S/P IVC filter (Chronic) AV fistula Pacemaker Family History Other Diabetes Social History marital status: Current Living Situation: Family Current Living Situation Comment: reports she lives in an apt, has caregivers Mon-Sat Feels Safe at Home: Yes Smoking Status: Unknown if ever smoked Hx Alcohol Use: No Hx Substance Use: No Beliefs That Will Affect Care: None Preferred Language: Wolof Review of Systems The patient is a very poor informant do not give any history. She is also confused. Most of the history as per H&P. She has been also coughing and tightness in her chest and has been having shortness of breath which is worse with any kind of exertion. She is maintaining 100% on 2 L nasal cannula. Physical Exam 2 Vital Signs (Past 24 Hours): Last Vital Signs Temp 36.4 C L 12/14/18 11:59 Pulse 70 12/14/18 16:38 Resp 22 12/14/18 16:38 BP 126/82 12/14/18 16:38 Pulse Ox 100 12/14/18 16:38 Physical Exam: Elderly female resting in the bed and in some respiratory distress and continuously coughing and unable to clear any secretions. HEENT: Pupils are reactive to light. She has got lots of secretions in her nose. Sclerae is clear. Neck: The neck is supple, no JVD, no lymphadenopathy. Chest: Bilateral air entry with coarse breathing also has rhonchi and some crackles bilaterally posteriorly. Heart: S1-S2 heard, regular rate and rhythm and no murmur. Abdomen: Soft nontender no hepatosplenomegaly. Bowel sounds are positive. Extremities: No clubbing, no edema, nontender calf muscles. Skin: No rash no lesions. Neurology: The patient is alert awake somewhat confused but she is following simple commands and moving all extremities. Psych: Unable to assess because of her current medical condition. Results & Data Laboratory Results Abnormal lab results 12/14/18 12/14/18 12/14/18 Range/Units 11:10 11:10 12:29 RBC 3.35 L (4.2-5.4) M/uL Hgb 10.8 L (12.0-16.0) g/dL Hct 33.9 L (37-47) % MCV 101.2 H (80-100) fL MCHC 31.9 L (32-36) g/dL RDW Std Deviation 75.3 H (36.4-46.3) fL RDW Coeff of Anatoly 21.0 H (11.5-14.5) % Plt Count 69 L (130-400) K/uL Immature Gran # (Auto) 0.03 H (0.00-0.02) K/uL Neut # (Auto) 7.06 H (1.4-6.5) K/uL Lymph # (Auto) 0.87 L (1.2-3.4) K/uL Shelby # (Auto) 0.90 H (0.11-0.59) K/uL PT 12.1 H (9.0-12.0) Seconds INR 1.2 H (0.9-1.1) VBG pH (7.36-7.41) VBG pCO2 (38-50) mmHg Sodium 131 L (136-145) mmol/L Chloride 94 L (98-107) mmol/L BUN 37 H (7-18) mg/dl Creatinine 5.02 H* (0.6-1.2) mg/dl BUN/Creatinine Ratio 7.4 L (10-20) Glucose 130 H (70-99) mg/dl Calcium 8.4 L (8.5-10.1) mg/dl Total Bilirubin 1.6 H (0.2-1) mg/dl Direct Bilirubin 1.1 H (0-0.2) mg/dl AST 311 H (15-37) U/L ALT 281 H (12-78) U/L Alkaline Phosphatase 296 H (45-117) U/L Troponin I 0.471 H* (0-0.045) ng/ml Total Protein 6.3 L (6.4-8.2) gm/dl Albumin 2.6 L (3.4-5.0) gm/dl Lipase 52 L (73-393) U/L Influenza Type A (PCR) (Neg) 12/14/18 12/14/18 Range/Units 12:29 13:05 RBC (4.2-5.4) M/uL Hgb (12.0-16.0) g/dL Hct (37-47) % MCV (80-100) fL MCHC (32-36) g/dL RDW Std Deviation (36.4-46.3) fL RDW Coeff of Anatoly (11.5-14.5) % Plt Count (130-400) K/uL Immature Gran # (Auto) (0.00-0.02) K/uL Neut # (Auto) (1.4-6.5) K/uL Lymph # (Auto) (1.2-3.4) K/uL Shelby # (Auto) (0.11-0.59) K/uL PT (9.0-12.0) Seconds INR (0.9-1.1) VBG pH 7.35 L (7.36-7.41) VBG pCO2 57 H (38-50) mmHg Sodium (136-145) mmol/L Chloride (98-107) mmol/L BUN (7-18) mg/dl Creatinine (0.6-1.2) mg/dl BUN/Creatinine Ratio (10-20) Glucose (70-99) mg/dl Calcium (8.5-10.1) mg/dl Total Bilirubin (0.2-1) mg/dl Direct Bilirubin (0-0.2) mg/dl AST (15-37) U/L ALT (12-78) U/L Alkaline Phosphatase (45-117) U/L Troponin I (0-0.045) ng/ml Total Protein (6.4-8.2) gm/dl Albumin (3.4-5.0) gm/dl Lipase (73-393) U/L Influenza Type A (PCR) Pos for Influ A A* (Neg) Diagnostic Findings SINGLE VIEW CHEST CLINICAL HISTORY: Lethargy. FINDINGS: An AP, portable, upright chest radiograph is compared to study dated . Correlation is made with chest CT dated 01/26/2018. The examination is significantly degraded by portable technique, apical lordotic positioning, and patient rotation. A 2-lead cardiac pacemaker is unchanged in position. The heart is enlarged and there is atherosclerotic calcification of the thoracic aorta. There is pulmonary vascular congestion. Bibasilar atelectasis is noted. There is developing airspace consolidation at the right lung base. Trace pleural effusions are suspected. No pneumothorax is seen. The skeletal structures are osteopenic. There are healed bilateral rib fractures. IMPRESSION: 1. Cardiomegaly and cardiac pacemaker with evidence of congestive failure. 2. There is developing airspace consolidation at the right lung base. Correlate clinically for evidence of pneumonia/aspiration pneumonitis. Radiographic follow -up to resolution is recommended. 3. Suspect trace pleural effusions. Medications Administered Current Inpatient Medications Amiodarone HCl (Cordarone) 200 mg PO QAM [facility] Stop: 01/14/19 08:59 Aspirin (Ecotrin Ectab) 81 mg PO QAM [facility] Stop: 01/14/19 08:59 Atorvastatin Calcium (Lipitor) 40 mg PO HS [facility] Stop: 01/13/19 20:59 Calcium Acetate (Phoslo) 667 mg PO DAILY [facility] Stop: 01/14/19 08:59 Gabapentin (Neurontin) 200 mg PO AMHS [facility] Stop: 01/13/19 20:59 Heparin Sodium (Porcine) (Heparin Sodium (Porcine)) 5,000 units SQ Q8 [facility] Stop: 01/13/19 21:59 Norepinephrine Bitartrate 8 mg (/ Dextrose) 508 mls @ 13.83 mls/hr IV .Q24H [facility] ; Protocol Stop: 01/13/19 14:56 Last Admin: 12/14/18 16:03 Dose: 0.05 mcg/kg/min, 13.8 mls/hr Sodium Chloride (Nss 1000ml) 1,000 mls @ 0 mls/hr IV .Q0M PRN PRN Reason: For Hemodialysis Use ONLY Stop: 12/14/18 23:27 Levothyroxine Sodium (Synthroid) 75 mcg PO QAM [facility] Stop: 01/14/19 08:59 Midodrine (Proamatine) 10 mg PO MOWEFR [facility] Stop: 01/15/19 16:06 Midodrine (Proamatine) 20 mg PO TUTHSA [facility] Stop: 01/13/19 17:45 Miscellaneous ([facility] Protocol For Hyperglycemia) 1 ea N/A PRN PRN; Protocol PRN Reason: Hyperglycemia Protocol Stop: 12/16/18 17:45 Miscellaneous Information (Consult) 1 ea N/A UD PRN PRN Reason: Consult Stop: 01/13/19 13:48 Miscellaneous Information (Consult) 1 ea N/A UD PRN PRN Reason: Consult Stop: 01/13/19 15:07 Miscellaneous Information (Consult) 1 ea N/A UD PRN PRN Reason: Consult Stop: 01/13/19 15:07 Miscellaneous Information (Consult Glycemic Management Pharmacy) 1 ea N/A NOW STA Stop: 12/14/18 17:47 Multivitamins (Multivitamin Tab) 1 tab PO QAM [facility] Stop: 01/14/19 08:59 Non-Formulary Medication (Citalopram [Citalopram]) 10 mg PO DAILY [facility] Stop: 01/14/19 08:59 Oseltamivir Phosphate (Tamiflu) 30 mg PO [facility] [place]; Protocol Stop: 12/19/18 17:45 Ranitidine HCl (Zantac) 37.5 mg PO DAILY [facility] Stop: 01/14/19 08:59 Sertraline HCl (Zoloft) 100 mg PO [facility] Stop: 01/13/19 20:59 _ (1) Fluid overload Hypervolemia type: unspecified Qualified Code(s): E87.70 - Fluid overload, unspecified (2) Sepsis Sepsis type: sepsis due to unspecified organism Qualified Code(s): A41.9 - Sepsis, unspecified organism
--- NOTE | 2018-12-14 18:54 | History & Physical Report ---
Date of Service December 14, 2018 Assessment & Plan (1) HCAP (healthcare-associated pneumonia): (2) Influenza A: (3) Shock: (4) Nonischemic cardiomyopathy: (5) Acute on chronic right-sided congestive heart failure: (6) ESRD (end stage renal disease) on dialysis: -Admit to ICU -Patient sent from outpatient dialysis for evaluation of altered mental status -In the ED, patient minimally responsive, hypotensive, volume overloaded, tested positive for influenza A, CXR showing right basilar consolidation -Unable to give IVF for hypotension due to volume overload status and ESRD on dialysis -Central line placed in ED and patient started on IV Levophed with improvement in BPs -Evaluated by nephrology who is planning on HD tonight -S/P Vanco, Zosyn, Tamiflu in the ED; will continue with all 3 for now, renally dosed -Check MRSA nasal swab, if negative likely can discontinue Vanco -Blood and sputum cultures -Noted normal lactic acid at 1.7 -Echo 11/2018-EF 55-60%, severe tricuspid regurgitation, pulmonary hypertension -Volume status typically managed with dialysis on Sunday, , Sunday with Midodrine given to help counteract hypotension with treatments; last treatment on 12/12 (7) Elevated troponin: -No reports of chest pain, EKG demonstrates paced rhythm -Likely secondary to demand ischemia in combination with underlying renal disease -will continue to trend cardiac enzymes (8) Elevated liver enzymes: -Noted elevated LFTs during previous admission -LFTs are higher today, possible hepatic congestion from volume overload -Recent abdominal imaging demonstrated possible cirrhosis -Likely can follow with GI as an outpatient -Continue to trend LFTs -Hold statin -No abdominal symptoms today, however if patient develops or if LFTs continue to worsen, can consider repeat abdominal imaging (9) DM type 2 (diabetes mellitus, type 2): -Hgb A1c 6.7 11/2018 -Pharmacy consult for glycemic management (10) Paroxysmal atrial fibrillation: -Rhythm controlled on amiodarone -Not anticoagulated secondary to history of hemorrhagic pericarditis and tamponade (11) QT prolongation: -Avoid QTC prolonging agents -Daily EKG (12) Wound of left ankle: -Appears to be healing well -During previous admission was discharged on Augmentin for treatment of, will hold for now due to being on Vanco and Zosyn as above (13) Hypothyroidism: -Continue levothyroxine (14) Symptomatic bradycardia: (15) Pacemaker: -No acute issues (16) Anxiety: (17) Depression: -Continue citalopram and sertraline -will hold clonazepam due to altered mental status (18) TIA (transient ischemic attack): -Continue aspirin -Holding statin as above (19) GERD (gastroesophageal reflux disease): -Continue H2 claudia (20) Pulmonary embolism: (21) DVT (deep venous thrombosis): (22) S/P IVC filter: -No acute issue (23) [place] treated with BiPAP: -BiPAP as per home settings (24) DVT prophylaxis: -SQ heparin History of Present Illness Chief Complaint: Altered mental status Primary Care Provider: Subhash Mo MD 73-year-old female who presents to the ED with altered mental status. History is currently unobtainable from her. Patient was recently admitted to [facility] 11/30 through 12/04 for acute on chronic right-sided CHF and left ankle wound. Patient was discharged on a course of Augmentin. She was discharged to [facility] for rehab. Per the staff at [facility], patient's mental status has been waxing and waning. They report her last dialysis treatment was on . This morning, she was somewhat lethargic and was sent to dialysis. While at dialysis, patient was noted to have altered mental status and was sent to the ED for further evaluation. In the ED, patient was minimally responsive and hypotensive. She tested positive for influenza A and CXR is showing right basilar consolidation. She also appears to be very volume overloaded. In the ED, she was given IVF, IV Vanco, IV Zosyn, p.o. Tamiflu. After my evaluation of the patient, central line was placed and patient was started on Levophed. Allergies Allergy/AdvReac Type Severity Reaction Status Date / Time Iodinated Contrast- Oral and Allergy Mild "Contrast Verified 12/14/18 12:44 IV Dye Media" -- unknown rxn adhesive Allergy Unknown "Tape" -- Verified 12/14/18 12:44 unknown rxn morphine Allergy Unknown UNKNOWN Verified 12/14/18 12:44 warfarin Allergy Unknown HYPERSENSIT Verified 12/14/18 12:44 IVITY/BLEED ING tomato AdvReac Intermediate GI SYMPTOMS Verified 12/14/18 12:44 Home Medications Home Medications Medication Instructions Recorded Confirmed Type amiodarone 200 mg PO QAM 09/03/18 12/14/18 History atorvastatin 40 mg PO HS 09/03/18 12/14/18 History calcium acetate 667 mg PO DAILY 09/03/18 12/14/18 History clonazepam 0.5 mg PO HS 09/03/18 12/14/18 History gabapentin 200 mg PO AMHS 09/03/18 12/14/18 History levothyroxine 75 mcg PO QAM 09/03/18 12/14/18 History multivitamin 1 tab PO QAM 09/03/18 12/14/18 History nitroglycerin [Nitrostat] 0.4 mg SUBLINGUAL DIRECTED PRN 09/03/18 12/14/18 History sertraline 100 mg PO HS 09/03/18 12/14/18 History acetaminophen 650 mg PO Q6H PRN 11/30/18 12/14/18 History albuterol sulfate [Ventolin HFA] 2 puff INHALATION Q4H PRN 11/30/18 12/14/18 History aspirin 81 mg PO QAM 11/30/18 12/14/18 History clonazepam 0.5 mg PO TUTHSA 11/30/18 12/14/18 History guaifenesin 400 mg PO Q4H PRN 11/30/18 12/14/18 History ondansetron HCl 4 mg PO Q6H PRN 11/30/18 12/14/18 History amoxicillin-pot clavulanate 1 tab PO DAILY #13 tab 12/04/18 12/14/18 Rx bisacodyl [Dulcolax (bisacodyl)] 10 mg NE DAILY PRN 12/14/18 12/14/18 History citalopram 10 mg PO DAILY 12/14/18 12/14/18 History fentanyl 1 patch TRANSDERMAL Q72H 12/14/18 12/14/18 History fluconazole 100 mg PO DAILY 12/14/18 12/14/18 History hydrocodone-acetaminophen 1 tab PO Q6H PRN 12/14/18 12/14/18 History insulin aspart U-100 [Novolog 10 unit SUBCUT TIDM 12/14/18 12/14/18 History U-100 Insulin aspart] insulin glargine [Lantus Solostar 22 unit SUBCUT HS 12/14/18 12/14/18 History U-100 Insulin] loperamide [Imodium A-D] 2 mg PO TUTHSA 12/14/18 12/14/18 History midodrine 10 mg PO MOWEFR 12/14/18 12/14/18 History midodrine 20 mg PO TUTA 12/14/18 12/14/18 History ranitidine HCl 0.5 tab PO DAILY 12/14/18 12/14/18 History sodium phosphates [Fleet Enema] 118 ml NE DAILY PRN 12/14/18 12/14/18 History Past Med/Surg History Medical History Anxiety (Chronic) Pulmonary hypertension (Chronic) Severe tricuspid regurgitation (Chronic) Anemia of renal disease (Chronic) Elevated liver enzymes (Chronic) QT prolongation (Chronic) History of fracture of left ankle (Chronic) 08/2018 ORIF trimalleolar fx Hypothyroidism (Chronic) Depression (Chronic) Closed trimalleolar fracture of left ankle (Chronic) Type 2 diabetes mellitus with diabetic neuropathy (Chronic) Acquired claw toe of right foot (Chronic) Acquired claw toe of left foot (Chronic) Diabetic retinopathy (Chronic) Paroxysmal atrial fibrillation (Chronic) TIA (transient ischemic attack) (Chronic) GERD (gastroesophageal reflux disease) (Chronic) Dyslipidemia (Chronic) Pulmonary hypertension (Chronic) Pulmonary embolism (Resolved) DM type 2 (diabetes mellitus, type 2) (Chronic) DVT (deep venous thrombosis) (Resolved) Chronic diastolic CHF (congestive heart failure) (Chronic) Nonischemic cardiomyopathy (Chronic) [place] treated with BiPAP (Chronic) Chronic respiratory failure with hypoxia (Chronic) Symptomatic bradycardia (Chronic) Pacemaker (Chronic) Hypertension (Chronic) Spinal stenosis (Chronic) Osteoarthritis (Chronic) Malignant melanoma (Chronic) Thrombocytopenia (Chronic) Left rib fracture (Chronic) 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 Pt has been off coumadin since and not anticoagulation candidate ESRD (end stage renal disease) on dialysis (Chronic) Pressure ulcer (Inactive) Wound needed debridement. After obtaining permission topical Xylocaine was applied. Using # 5 curette fibrin and slough were removed. Minimal bleeding was controlled with pressure. Patient tolerated well with no complications. This represents non-excisional debridement of less than 20 cm�. Wound dressed with Santyl and optifoam to be changed every day. Continue antibiotics. Likely reasonable to change to PO augmentin to finish course of treatment. Follow up in clinic in 1 week. Thank you for allowing me to participate in the care of this patient. Left midfoot ulcer (Inactive) Mitral regurgitation (Inactive) Ulcer of right midfoot (Inactive) Surgical History H/O total hysterectomy (Chronic) S/P cholecystectomy (Chronic) S/P IVC filter (Chronic) AV fistula (Inactive) Pacemaker (Inactive) Family History Father Heart attack Mother Heart attack Social History marital status: Feels Safe at Home: Yes Smoking Status: Former smoker Tobacco Type: cigarettes Hx Alcohol Use: No Hx Substance Use: No Beliefs That Will Affect Care: None Preferred Language: Egyptian Review of Systems ROS per HPI, all other systems reviewed and negative Physical Exam 2 Vital Signs (Past 24 Hours): Last Vital Signs Temp 36.5 C 12/14/18 17:55 Pulse 73 12/14/18 18:00 Resp 22 12/14/18 16:38 BP 116/72 12/14/18 18:00 Pulse Ox 100 12/14/18 16:38 Constitutional: WD/WN, vitals as above + acute distress (Minimally responsive to loud verbal and tactile stimuli) Eyes: PERRL, conjunctivae normal, anicteric sclerae (Pupils small however equal, round, and reactive to light) ENMT: external ear and nose normal, oropharynx normal Respiratory: + labored breathing Auscultation: + crackles Audible moist breath sounds present Cardiovascular: Rate/Rhythm: regular rate and regular rhythm Vessels: normal peripheral pulses Extremities: + edema Gastrointestinal (Abdomen): normal bowel sounds, soft, nontender, no hepatosplenomegaly Musculoskeletal: Extremities: no cyanosis and no clubbing Motor strength unable to be tested at this time Skin: no rashes, warm and dry Wound noted to left lateral ankle, healing well, no drainage Healing wound noted to left heel, dried/scabbed Neurologic: + not awake Cranial Nerves: normal facial strength Patient minimally responsive to loud verbal and tactile stimuli. Full neurologic exam unable to be completed. Psychiatric: Orientation: + not alert and + not oriented x 3 Results & Data Laboratory Results Laboratory Last Values WBC 8.95 K/uL (4.8-10.8) 12/14/18 11:10 RBC 3.35 M/uL (4.2-5.4) L 12/14/18 11:10 Hgb 10.8 g/dL (12.0-16.0) L 12/14/18 11:10 Hct 33.9 % (37-47) L 12/14/18 11:10 MCV 101.2 fL (80-100) H 12/14/18 11:10 MCH 32.2 pg (25-34) 12/14/18 11:10 MCHC 31.9 g/dL (32-36) L 12/14/18 11:10 RDW Std Deviation 75.3 fL (36.4-46.3) H 12/14/18 11:10 RDW Coeff of Anatoly 21.0 % (11.5-14.5) H 12/14/18 11:10 Plt Count 69 K/uL (130-400) L 12/14/18 11:10 Immature Gran % (Auto) 0.3 % 12/14/18 11:10 Neut % (Auto) 78.9 % 12/14/18 11:10 Lymph % (Auto) 9.7 % 12/14/18 11:10 [place] % (Auto) 10.1 % 12/14/18 11:10 Eos % (Auto) 0.8 % 12/14/18 11:10 Baso % (Auto) 0.2 % 12/14/18 11:10 Immature Gran # (Auto) 0.03 K/uL (0.00-0.02) H 12/14/18 11:10 Neut # (Auto) 7.06 K/uL (1.4-6.5) H 12/14/18 11:10 Lymph # (Auto) 0.87 K/uL (1.2-3.4) L 12/14/18 11:10 [place] # (Auto) 0.90 K/uL (0.11-0.59) H 12/14/18 11:10 Eos # (Auto) 0.07 K/uL (0-0.5) 12/14/18 11:10 Baso # (Auto) 0.02 K/uL (0-0.2) 12/14/18 11:10 Platelet Estimate Decreased (Normal) 12/14/18 11:10 Anisocytosis Present 12/14/18 11:10 Target Cells 1+ 12/14/18 11:10 PT 12.1 Seconds (9.0-12.0) H 12/14/18 12:29 INR 1.2 (0.9-1.1) H 12/14/18 12:29 APTT 27.5 Seconds (21.0-31.0) 12/14/18 12: PTT Ratio 1.1 12/14/18 12:29 VBG pH 7.35 (7.36-7.41) L 12/14/18 12:29 VBG pCO2 57 mmHg (38-50) H 12/14/18 12:29 VBG pO2 37 mmHg 12/14/18 12:29 VBG HCO3 31 mmol/L 12/14/18 12:29 VBG O2 Saturation 64.7 % 12/14/18 12:29 VBG Base Excess 4.4 mEq/L 12/14/18 12: Barometric Pressure 748.6 mm/Hg 12/14/18 12:29 Sodium 131 mmol/L (136-145) L 12/14/18 11:10 Potassium 4.8 mmol/L (3.5-5.1) 12/14/18 11:10 Chloride 94 mmol/L (98-107) L 12/14/18 11:10 Carbon Dioxide 31 mmol/L (21-32) 12/14/18 11:10 Anion Gap 6.0 (3-11) 12/14/18 11:10 BUN 37 mg/dl (7-18) H 12/14/18 11:10 Creatinine 5.02 mg/dl (0.6-1.2) H* 12/14/18 11:10 Est Cr Clr Drug Dosing Not Reportable 12/14/18 11:10 Est GFR ( Amer) 9.1 12/14/18 11:10 Est GFR (Non-Af Amer) 7.8 12/14/18 11:10 BUN/Creatinine Ratio 7.4 (10-20) L 12/14/18 11:10 Glucose 130 mg/dl (70-99) H 12/14/18 11:10 Lactate 1.7 mmol/L (0.4-2.0) 12/14/18 12:29 Calcium 8.4 mg/dl (8.5-10.1) L 12/14/18 11:10 Total Bilirubin 1.6 mg/dl (0.2-1) H 12/14/18 11:10 Direct Bilirubin 1.1 mg/dl (0-0.2) H 12/14/18 11:10 AST 311 U/L (15-37) H 12/14/18 11:10 ALT 281 U/L (12-78) H 12/14/18 11:10 Alkaline Phosphatase 296 U/L (45-117) H 12/14/18 11:10 Ammonia 28.1 umol/L (11-32) 12/14/18 12:29 Troponin I 0.471 ng/ml (0-0.045) H* 12/14/18 11:10 Total Protein 6.3 gm/dl (6.4-8.2) L 12/14/18 11:10 Albumin 2.6 gm/dl (3.4-5.0) L 12/14/18 11:10 Lipase 52 U/L (73-393) L 12/14/18 11:10 Nasal Screen MRSA (PCR) Negative (Negative) 12/14/18 17:15 Influenza Type A (PCR) Pos for Influ A (Neg) A* 12/14/18 13:05 Influenza Type B (PCR) Neg for Influ B (Neg) 12/14/18 13:05 Diagnostic Findings CXR IMPRESSION: 1. Cardiomegaly and cardiac pacemaker with evidence of congestive failure. 2. There is developing airspace consolidation at the right lung base. Correlate clinically for evidence of pneumonia/aspiration pneumonitis. Radiographic follow -up to resolution is recommended. 3. Suspect trace pleural effusions. Code Status & VTE Plan Code Status Patient is a DNR as per my discussion with patient's son, Ed, via telephone. However he is agreeable to have patient admitted to ICU with a central line placement for administration of vasopressors. VTE Prophylaxis Plan VTE Prophylaxis will be ordered: Yes Supervising Physician Co-Signing Physician Notes I have seen and examined the patient with our team's nurse practitioner and agree with the assessment and plan as above and would like to comment that This is a 73 year old female found to have influenza, and pulmonary infiltrates suggestive of fluid overload versus pneumonia, and also hypotensive. Currently patient is in ICU level of care as she is getting Levophed to raise blood pressure so that dialysis can be performed and dialysis is currently running. She is also getting respiratory antibiotics and tamiflu On exam she is awake and alert Lungs: with congestive lung sounds, on nasal cannula heart: regular rate extremities: left AV fistual, right femoral central line abdomen: soft, nontender, positive bowel sounds agree with plan for other multiple health issues as documented by nurse practitioner _ (1) Hypothyroidism Hypothyroidism type: unspecified Qualified Code(s): E03.9 - Hypothyroidism, unspecified (2) Pulmonary embolism Acute cor pulmonale presence: without acute cor pulmonale Chronicity: unspecified Pulmonary embolism type: unspecified Qualified Code(s): I26.99 - Other pulmonary embolism without acute cor pulmonale (3) GERD (gastroesophageal reflux disease) Esophagitis presence: without esophagitis Qualified Code(s): K21.9 - Gastro- esophageal reflux disease without esophagitis
[2018-12-14] MEDS ORDERED: PHARMACY GLYCEMIC MGMT CONSULT PRN (19:02)
[2018-12-14] MEDS: HEPARIN SOD 5,000 UNIT/0.5 ML VIAL SQ SCH (20:46)
[2018-12-14] MEDS: GABAPENTIN 100 MG CAP PO SCH (20:47)
[2018-12-14] MEDS: SERTRALINE HCL 100 MG TABLET PO SCH (20:48)
[2018-12-14] MEDS ORDERED: ATORVASTATIN 40 MG TAB PO SCH (21:00)
[2018-12-14] MEDS ORDERED: INSULIN GLARGINE SOLOSTAR 100 UNITS/ML 3 ML PEN SC SCH (21:00)
[2018-12-14] MEDS ORDERED: PNEUMOCOCCAL POLYSACCHARIDES 25 MCG/0.5 ML VIAL/SYR IM ONE (21:30)
[2018-12-14] MEDS ORDERED: PNEUMOCOCCAL ADMINISTRATION CHARGE ONE (21:30)
[2018-12-14] MEDS ORDERED: INFLUENZA VACCINE HIGH DOSE 65+ 0.5 ML SYR IM ONE (21:30)
[2018-12-14] MEDS ORDERED: INFLUENZA ADMINISTRATION CHARGE ONE (21:30)
[2018-12-14] MEDS: PIPERACILLIN/TAZOBACTAM 4.5 GM in DEXTROSE 5% 100 ML IV SCH (22:09)
[2018-12-14] MEDS: OSELTAMIVIR PHOSPHATE SUSP 30 MG/5 ML UDP PO SCH (22:10)
[2018-12-15] MEDS: INSULIN ASPART 100 UNITS/ML 3 ML PEN SC SCH ×6 (00:06→23:56)
[2018-12-15 04:52] LABS: Mean Corpuscular Hgb Conc 31.2 g/dL (32-36)
[2018-12-15 04:57] LABS: Hematocrit (blood only) 29.5 % (37-47); Hemoglobin 9.2 g/dL (12.0-16.0); Mean Corpuscular Volume 99.7 fL (80-100); RDW Coefficient of Variation 20.8 % (11.5-14.5); Red Blood Count 2.96 M/uL (4.2-5.4)
[2018-12-15 05:12] LABS: Albumin Level 2.2 gm/dl (3.4-5.0); BUN Creatinine Ratio 6.7 (10-20); Calcium 7.7 mg/dl (8.5-10.1); Creatinine Clr Calc Pharmacy 10.7 ml/min; Est GFR (African American) 11.4; Est GFR (Non-African American) 9.8; Platelet Count 54 K/uL (130-400); Potassium 4.6 mmol/L (3.5-5.1)
[2018-12-15 05:15] LABS: Albumin Globulin Ratio 0.7 (0.9-2); Bilirubin,Total 1.5 mg/dl (0.2-1); Globulin 3.2 gm/dl (2.5-4.0); Total Protein 5.4 gm/dl (6.4-8.2)
[2018-12-15] MEDS: LEVOTHYROXINE SODIUM 75 MCG TABLET PO SCH (06:20)
[2018-12-15] MEDS: HEPARIN SOD 5,000 UNIT/0.5 ML VIAL SQ SCH ×2 (06:21→09:42)
--- NOTE | 2018-12-15 07:16 | XRay Report ---
XR chest 1V portable HISTORY: Follow-up right lower lobe abnormality. COMPARISON: Chest 12/14/2018. FINDINGS: No pneumothorax. No pleural effusions. The heart remains enlarged. Old, healed left-sided r ib fractures. The right basilar airspace opacity has essentially resolved in the interval. No new foc al lung consolidations. No evidence for pulmonary edema. Right-sided dual-chamber pacemaker. IMPRESSION: 1. The right basilar airspace opacity has essentially resolved in the interval. 2. Stable cardiomegaly. No evidence for pulmonary edema. Electronically signed by: Rik Vora M.D. 12/15/2018 7:15 AM
[2018-12-15] MEDS ORDERED: CITALOPRAM 20 MG TAB PO SCH (09:00)
[2018-12-15] MEDS: PIPERACILLIN/TAZOBACTAM 4.5 GM in DEXTROSE 5% 100 ML IV SCH ×2 (09:41→20:09)
[2018-12-15] MEDS: ASPIRIN 81 MG ECTAB PO SCH (09:43)
[2018-12-15] MEDS: AMIODARONE 200 MG TAB PO SCH (09:44)
[2018-12-15] MEDS: MULTIVITAMIN TAB PO SCH (09:44)
[2018-12-15] MEDS: GABAPENTIN 100 MG CAP PO SCH ×2 (09:45→20:14)
[2018-12-15] MEDS: RANITIDINE HCL SYRUP 150 MG/10 ML UDC PO SCH (09:45)
--- NOTE | 2018-12-15 09:55 | Pharmacy Report ---
Pharmacy Glycemic Short Note 2 - Date of Service December 15, 2018 - Glycemic Short BSG Results (Last 24 hours): 12/14/18 12/14/18 12/14/18 11:10 19:19 23:59 Glucose 130 H POC Glucose (other) 129 H 151 H 12/15/18 12/15/18 04:44 06:09 Glucose 133 H POC Glucose (other) 133 H OUTPATIENT ANTIDIABETIC REGIMEN (PER CURRENT MED REC): * Lantus 22 units HS * Novolog 10 units w/ each meal * A1c = 6.7% 12/01/18 however result should be interpreted w/ caution given ESRD ; pt specific trends and BSG log more appropriate to evaluate control CURRENT REGIMEN: * Lantus 5 units SQ x 1 given last evening * Novolog Q 6 hrs * Goal Range: 110-140mg/dL * Correction Factor: 50mg/dL * Carb Ratio: none ASSESSMENT: 12/15 * Type 2 diabetic from [facility] admitted yesterday for mental status changes, hypotension, fluid overload and reported new infiltrate on CXR * She is managed w/ basal bolus regimen at [facility] and will continue the same here * She is familiar to the glycemic control service from prior admissions. Will use prior admission data to initiate insulin regimen here * Given current stressors: NE infusion, possible infxn - will change BSG frequency to Q 4 hrs and cover w/ Novolog. Will split Lantus dose BID for ease of titration * She remains NPO this AM, BSGs are at goal thus far - will continue with relatively low doses of Lantus for time being while relying of Q 4 hr correction should basal dose be inadequate PLAN FOR INPATIENT GLYCEMIC CONTROL: * Basal insulin * Lantus 3 units SQ BID * Bolus insulin * NovoLog per scale Q 4 hrs * Goal Range: Low 120 mg/dL - High 160 mg/dL * Correction Factor: 30 mg/dL/unit * Nutritional / Prandial insulin per carb ratio of 1 unit per 12 grams CHO consumed PLAN FOR DISCHARGE: * to be determined
[2018-12-15] MEDS: CALCIUM ACETATE 667 MG CAP PO SCH (14:02)
[2018-12-15] MEDS: INSULIN GLARGINE SOLOSTAR 100 UNITS/ML 3 ML PEN SC SCH ×2 (14:04→20:13)
--- NOTE | 2018-12-15 15:08 | Nephrology Progress Note ---
Date of Service December 15, 2018 Assessment & Plan (1) ESRD (end stage renal disease) on dialysis: Patient with ESRD on dialysis Sunday. She was admitted with acute respiratory distress and shock. She is grossly volume overload. Electrolytes are acceptable. She tolerated HD well yesterday with net UF 2litres. Next HD sunday unless worsening hypoxia or electrolyte imbalance. (2) Sepsis: Patient with sepsis due to influenza pneumonia. She is receiving Tamiflu. She is also being covered with vancomycin and Zosyn. Continue Levophed. Avoid IV fluids. (3) Fluid overload: Patient with volume overload. Chest x-ray showing pulmonary vascular congestion. She tolerated 2 litre UF. Oxygenation is stable. Will attempt further UF on sunday (4) Anemia of renal disease: Hemoglobin of 9.2 today which is below target. Will give JULIOCESAR with HD Subjective ESRD patient seen in follow up for volume overload and septic shock. She reports no SOB. She remains on levophed. Tolerated HD well yesterday. Intermittently confused Review of Systems Unobtainable due to cognitive status Physical Exam 2 Vital Signs (Past 24 Hours): Last Vital Signs Temp 36.7 C 12/15/18 07:00 Pulse 75 12/15/18 11:16 Resp 21 12/15/18 11:16 BP 103/42 L 12/15/18 11:16 Pulse Ox 98 12/15/18 11:16 Physical Exam: General exam: Lethergic, intermittently confused, Appears comfortable, no acute distress HEENT: Pupils are equal and reactive to light Neck: No JVD, neck is supple trachea is midline Respiratory system: basal crackles bilaterally. Gastrointestinal: Abdomen is soft, non distended, non tender, bowel sounds are present CVS: Regular rate and rhythm. No murmurs, rubs or gallops Musculoskeletal: No joint or muscle tenderness Extremities: Non tender, 2+ edema, peripheral pulses are present Neuro: Oriented to person, no tremors, no focal neurological deficits Skin: No rashes, open areas on heels Results & Data Laboratory Results reviewed, high LFTs _ (1) Sepsis Sepsis type: sepsis due to unspecified organism Qualified Code(s): A41.9 - Sepsis, unspecified organism
--- NOTE | 2018-12-15 15:10 | Critical Care Progress Note ---
Date of Service December 15, 2018 Assessment & Plan (1) HCAP (healthcare-associated pneumonia): The patient currently is very stable. She is hemodynamically stable on Levophed. She was also started on Tamiflu as well as vancomycin and Zosyn. The blood cultures were done. We also going to send the sputum for culture and sensitivity. The patient is also evaluated by the roll forger and she is going to be dialyzed now. In the meantime we are going to continue with all other management as prescribed. We have also stopped the IV fluids and was dialyzed yesterday. The patient also has obstructive sleep apnea syndrome and according to her she is on a BiPAP at home at night. Her daughter is going to bring the BiPAP. Also no growth on the cultures so far. Will continue with the Zosyn and will D/ C the Vancomycin. The patient is still requiring the small dose of Levophed. We are going to continue with the current management as prescribed and we are going to maintain the mean arterial pressure of 65 and above. I have spent greater than 35 minutes of the critical care time. Subjective his is a 73-year-old female with history of ESRD on dialysis Sunday in [place]. She has a left upper arm AV fistula. Last dialysis was on . She has chronic hypotension with dialysis. She is admitted with acute respiratory distress found to have flu positive. She is in shock requiring Levophed. We have been asked to evaluate her and provide critical care support and treat her for her current septic shock as well as respiratory failure.. Other PMH includes pAF w/o AC, hemorrhagic pericardial effusion, nonischemic [employer], plm HTN, bradycardia s/p pacer, chronic respiratory failure on home ; multiple DVT/PE, hx TIA, DM on insulin, L ankle frx 08/2018 s/p ORIF, hypothyroid, EVERTON on cpap. She dialyzes under the care of Georgie Miller in [facility]. She cannot give much history but is complaining of shortness of breath and fecal incontinence each time she coughs. She is slightly confused. Blood pressure has improved with Levophed. She was receiving normal saline which have asked them to stop. Currently she is hemodynamically stable on Levophed. The patient was dialyzed yesterday and overall she seems to be doing better. Blood pressure is still low and she is requiring levo fed a very low-dose to maintain her blood pressure with map of 65 and above. The patient denies having any distress. No headache or dizziness or chest pain. She has been coughing, but not able to clear any secretions. No fever or chills or chest pain or hemoptysis. Physical Exam 2 Vital Signs (Past 24 Hours): Last Vital Signs Temp 36.7 C 12/15/18 07:00 Pulse 75 12/15/18 11:16 Resp 21 12/15/18 11:16 BP 103/42 L 12/15/18 11:16 Pulse Ox 98 12/15/18 11:16 Physical Exam: Elderly female resting comfortably in the bed not in any acute distress. HEENT: Normocephalic, clear eyes, clear ears, nasal congestion and throat is also clear. Neck: Supple, no JVD, no lymphadenopathy. Chest: Bilateral air entry, coarse breathing, scattered rhonchi and some expiratory wheezes but it is improved from yesterday. No crackles heard. Heart: S1-S2 heard. No murmur is appreciated. Abdomen: Soft, nontender, bowel sounds are positive, no mass felt. Extremities: No clubbing, no edema, nontender calf muscles. Neurology: Nonfocal examination, patient is moving all her extremities. Skin: No rash no lesion. Psych: The patient has good affect. Results & Data Laboratory Results Abnormal lab results 12/14/18 12/14/18 12/14/18 Range/Units 18:49 19:19 23:59 RBC (4.2-5.4) M/uL Hgb (12.0-16.0) g/dL Hct (37-47) % MCHC (32-36) g/dL RDW Std Deviation (36.4-46.3) fL RDW Coeff of Anatoly (11.5-14.5) % Plt Count (130-400) K/uL Sodium (136-145) mmol/L Chloride (98-107) mmol/L BUN (7-18) mg/dl Creatinine (0.6-1.2) mg/dl BUN/Creatinine Ratio (10-20) Glucose (70-99) mg/dl POC Glucose (other) 129 H 151 H (70-99) mg/dl Calcium (8.5-10.1) mg/dl Total Bilirubin (0.2-1) mg/dl AST (15-37) U/L ALT (12-78) U/L Alkaline Phosphatase (45-117) U/L Troponin I 0.454 H* (0-0.045) ng/ml Total Protein (6.4-8.2) gm/dl Albumin (3.4-5.0) gm/dl Albumin/Globulin Ratio (0.9-2) 12/15/18 12/15/18 12/15/18 Range/Units 00:51 04:44 04:44 RBC 2.96 L (4.2-5.4) M/uL Hgb 9.2 L (12.0-16.0) g/dL Hct 29.5 L (37-47) % MCHC 31.2 L (32-36) g/dL RDW Std Deviation 75.0 H (36.4-46.3) fL RDW Coeff of Anatoly 20.8 H (11.5-14.5) % Plt Count 54 L (130-400) K/uL Sodium 134 L (136-145) mmol/L Chloride 97 L (98-107) mmol/L BUN 28 H (7-18) mg/dl Creatinine 4.16 H D (0.6-1.2) mg/dl BUN/Creatinine Ratio 6.7 L (10-20) Glucose 133 H (70-99) mg/dl POC Glucose (other) (70-99) mg/dl Calcium 7.7 L (8.5-10.1) mg/dl Total Bilirubin 1.5 H (0.2-1) mg/dl AST 307 H (15-37) U/L ALT 237 H (12-78) U/L Alkaline Phosphatase 241 H (45-117) U/L Troponin I 0.484 H* (0-0.045) ng/ml Total Protein 5.4 L (6.4-8.2) gm/dl Albumin 2.2 L (3.4-5.0) gm/dl Albumin/Globulin Ratio 0.7 L (0.9-2) 12/15/18 12/15/18 Range/Units 06:09 12:47 RBC (4.2-5.4) M/uL Hgb (12.0-16.0) g/dL Hct (37-47) % MCHC (32-36) g/dL RDW Std Deviation (36.4-46.3) fL RDW Coeff of Anatoly (11.5-14.5) % Plt Count (130-400) K/uL Sodium (136-145) mmol/L Chloride (98-107) mmol/L BUN (7-18) mg/dl Creatinine (0.6-1.2) mg/dl BUN/Creatinine Ratio (10-20) Glucose (70-99) mg/dl POC Glucose (other) 133 H 151 H (70-99) mg/dl Calcium (8.5-10.1) mg/dl Total Bilirubin (0.2-1) mg/dl AST (15-37) U/L ALT (12-78) U/L Alkaline Phosphatase (45-117) U/L Troponin I (0-0.045) ng/ml Total Protein (6.4-8.2) gm/dl Albumin (3.4-5.0) gm/dl Albumin/Globulin Ratio (0.9-2) Diagnostic Findings XR chest 1V portable HISTORY: Follow-up right lower lobe abnormality. COMPARISON: Chest 12/14/2018. FINDINGS: No pneumothorax. No pleural effusions. The heart remains enlarged. Old , healed left-sided rib fractures. The right basilar airspace opacity has essentially resolved in the interval. No new focal lung consolidations. No evidence for pulmonary edema. Right-sided dual-chamber pacemaker. IMPRESSION: 1. The right basilar airspace opacity has essentially resolved in the interval. 2. Stable cardiomegaly. No evidence for pulmonary edema. Electronically signed by: Rik Vora M.D. 12/15/2018 7:15 AM Medications Administered Current Inpatient Medications Amiodarone HCl (Cordarone) 200 mg PO QAM [facility] Stop: 01/14/19 08:59 Last Admin: 12/15/18 09:44 Dose: 200 mg Aspirin (Ecotrin Ectab) 81 mg PO QAM [facility] Stop: 01/14/19 08:59 Last Admin: 12/15/18 09:43 Dose: 81 mg Calcium Acetate (Phoslo) 667 mg PO QDL [facility] Stop: 01/14/19 11:29 Last Admin: 12/15/18 14:02 Dose: Not Given Gabapentin (Neurontin) 200 mg PO AMHS [facility] Stop: 01/13/19 20:59 Last Admin: 12/15/18 09:45 Dose: 200 mg Heparin Sodium (Beef Lung) (Heparin Sod 10 Unit/Ml Flush) 5 ml FLUSH PRN PRN PRN Reason: Flush Stop: 01/14/19 01:03 Heparin Sodium (Porcine) (Heparin Sodium (Porcine)) 5,000 units SQ Q12H [facility] Stop: 01/14/19 07:59 Last Admin: 12/15/18 09:42 Dose: 5,000 units Norepinephrine Bitartrate 8 mg (/ Dextrose) 508 mls @ 8.29 mls/hr IV .Q24H [facility] ; Protocol Stop: 01/13/19 14:56 Last Titration: 12/15/18 12:39 Dose: 0.03 mcg/kg/min, 8.3 mls/hr Piperacillin Sod/Tazobactam (Sod 4.5 gm/ Dextrose) 120 mls @ 30 mls/hr IV Q12H [facility]; Protocol Stop: 12/21/18 21:59 Last Infusion: 12/15/18 14:02 Dose: Infused Insulin Aspart (Novolog Flexpen) 0 units SC Q4 [facility] Stop: 01/14/19 11:59 Last Admin: 12/15/18 14:18 Dose: Not Given Insulin Glargine (Lantus Solostar Pen) 3 units SC BID [facility] Stop: 01/14/19 11:59 Last Admin: 12/15/18 14:04 Dose: 3 units Levothyroxine Sodium (Synthroid) 75 mcg PO DAILYBB [facility] Stop: 01/14/19 06:29 Last Admin: 12/15/18 06:20 Dose: 75 mcg Midodrine (Proamatine) 10 mg PO MoWeFr@0900 [facility] Stop: 01/15/19 08:59 Midodrine (Proamatine) 20 mg PO TuThSa@0900 [facility] Stop: 01/16/19 08:59 Miscellaneous Information (Consult) 1 ea N/A UD PRN PRN Reason: Consult Stop: 01/13/19 15:07 Miscellaneous Information (Consult Glycemic Management Pharmacy) 1 ea N/A UD PRN PRN Reason: Consult Stop: 01/13/19 19:01 Multivitamins (Multivitamin Tab) 1 tab PO QAM [facility] Stop: 01/14/19 08:59 Last Admin: 12/15/18 09:44 Dose: 1 tab Oseltamivir Phosphate (Tamiflu) 30 mg PO TuTa@2200 [facility]; Protocol Stop: 12/19/18 21:59 Last Admin: 12/14/18 22:10 Dose: 30 mg Ranitidine HCl (Zantac) 37.5 mg PO DAILY [facility] Stop: 01/14/19 08:59 Last Admin: 12/15/18 09:45 Dose: 37.5 mg Sertraline HCl (Zoloft) 100 mg PO [facility] Stop: 01/13/19 20:59 Last Admin: 12/14/18 20:48 Dose: 100 mg
[2018-12-15] MEDS: NOREPINEPHRINE BIT INJ 8 MG in DEXTROSE 5% 500 ML IV SCH (17:16)
--- NOTE | 2018-12-15 17:45 | Hospitalist Progress Note ---
Date of Service December 15, 2018 Assessment & Plan (1) HCAP (healthcare-associated pneumonia): was started on Vancomycin and Zosyn on 12/15/18 had dialysis on 12/15/18 follow up CXR 1. The right basilar airspace opacity has essentially resolved in the interval. 2. Stable cardiomegaly. No evidence for pulmonary edema. continue with Zosyn for now. follow up admission blood cultures (2) Influenza A: found to be Influenza A positive on admission on 12/14/18, started on Tamiflu continue Tamiflu Diarrhea may be from influenza give lactobacillus supplements tabs (3) Shock: was on admission day 12/14/18 sent sent from outpatient dialysis for evaluation of altered mental status In the ED, patient minimally responsive, hypotensive, volume overloaded, tested positive for influenza A, CXR showing right basilar consolidation admitted to ICU on 12/14/18 for pressors support to do dialysis continues to be on Levophed on ICU as of 12/15/18 (4) Nonischemic cardiomyopathy: -No reports of chest pain, EKG demonstrates paced rhythm -Likely secondary to demand ischemia in combination with underlying renal disease -troponins stabilized as 0.47, 0.45, 0.48 (5) Acute on chronic right-sided congestive heart failure: treat with dialysis (6) ESRD (end stage renal disease) on dialysis: Patient with ESRD on dialysis Sunday/ / Sunday 2 liters of fluid removed in ICU on Sunday12/14/18 while on pressors nephrology service continues to follow (7) Elevated troponin: -No reports of chest pain, EKG demonstrates paced rhythm -Likely secondary to demand ischemia in combination with underlying renal disease -troponins stabilized as 0.47, 0.45, 0.48 (8) Elevated liver enzymes: -Noted elevated LFTs during previous admission -Recent abdominal imaging demonstrated possible cirrhosis -transmaminitis on this admission likely due to volume congestion - the AST and ALT are stabilizing and not trending upw with GI -Hold statin (9) DM type 2 (diabetes mellitus, type 2): -Hgb A1c 6.7 11/2018 -Pharmacy consult for glycemic management PLAN FOR INPATIENT GLYCEMIC CONTROL: Basal insulin Lantus 3 units SQ BID Bolus insulin NovoLog per scale Q 4 hrs Goal Range: Low 120 mg/dL - High 160 mg/dL Correction Factor: 30 mg/dL/unit Nutritional / Prandial insulin per carb ratio of 1 unit per 12 grams CHO consumed (10) Paroxysmal atrial fibrillation: -Rhythm controlled on amiodarone -Not anticoagulated secondary to history of hemorrhagic pericarditis and tamponade (11) QT prolongation: -Avoid QTC prolonging agents -Daily EKG (12) Wound of left ankle: -Appears to be healing well -During previous admission was discharged on Augmentin for treatment of, will hold for now due to being on Zosyn as above (13) Hypothyroidism: -Continue levothyroxine (14) Symptomatic bradycardia: currently without cardiac events (15) Pacemaker: -No acute issues (16) Anxiety: (17) Depression: -hold clonazepam -hold citalopram (was being transitioned to sertraline alone as sertraline) -continue setraline (18) TIA (transient ischemic attack): -Continue aspirin -Holding statin as above (19) GERD (gastroesophageal reflux disease): -Continue H2 claudia (20) Pulmonary embolism: as per history, no acute PE or DVT on this presentation Not on long-term anticoagulation candidate due to H/O hemorrhagic pericarditis/ tamponade (21) DVT (deep venous thrombosis): as per history, no acute PE or DVT on this presentation Not on long-term anticoagulation candidate due to H/O hemorrhagic pericarditis/ tamponade (22) S/P IVC filter: History of IVC filter (23) EVERTON treated with BiPAP: (24) DVT prophylaxis: -SQ heparin Subjective Patient remains on norepinephrine (levophed) in the ICU. Patient awake and alert. On nasal cannula 2 liters/min. answering questions appopriately. Has been having loose stools and diarrhea. patient denies abdominal pain denies vomiting. denies chest pain or palpitations or headache or lightheadedness Patient is anuric Physical Exam 2 Vital Signs (Past 24 Hours): Last Vital Signs Temp 36.5 C 12/15/18 12:01 Pulse 70 12/15/18 17:30 Resp 19 12/15/18 17:30 BP 104/49 L 12/15/18 17:30 Pulse Ox 96 12/15/18 17:30 Physical Exam: neuro: awake and alert, verbal, follows commands Lungs: with congestive lung sounds, on nasal cannula heart: regular rate extremities: left AV fistual, right femoral central line abdomen: soft, nontender, positive bowel sounds _ (1) Hypothyroidism Hypothyroidism type: unspecified Qualified Code(s): E03.9 - Hypothyroidism, unspecified (2) GERD (gastroesophageal reflux disease) Esophagitis presence: without esophagitis Qualified Code(s): K21.9 - Gastro- esophageal reflux disease without esophagitis (3) Pulmonary embolism Pulmonary embolism type: unspecified Chronicity: unspecified Acute cor pulmonale presence: without acute cor pulmonale Qualified Code(s): I26.99 - Other pulmonary embolism without acute cor pulmonale
[2018-12-15] MEDS: SERTRALINE HCL 100 MG TABLET PO SCH (20:14)
[2018-12-15] MEDS ORDERED: ACETAMINOPHEN SOLN 500 MG/15.62 ML UDP PO PRN (20:31)
[2018-12-15] MEDS ORDERED: ACETAMINOPHEN 500 MG TAB ONE (20:34)
[2018-12-15] MEDS ORDERED: INSULIN GLARGINE SOLOSTAR 100 UNITS/ML 3 ML PEN SC ONE (22:00)
[2018-12-16] MEDS: INSULIN ASPART 100 UNITS/ML 3 ML PEN SC SCH ×5 (03:37→20:23)
[2018-12-16 05:02] LABS: Anisocytosis Present; Basophils # (auto) 0.01 K/uL (0-0.2); Basophils % (auto) 0.2 %; Eosinophils # (auto) 0.17 K/uL (0-0.5); Eosinophils % (auto) 2.9 %; Hematocrit (blood only) 30.6 % (37-47); Hemoglobin 9.8 g/dL (12.0-16.0); Lymphocytes # (auto) 1.07 K/uL (1.2-3.4); Lymphocytes % (auto) 18.4 %; Monocytes # (auto) 0.54 K/uL (0.11-0.59); Monocytes % (auto) 9.3 %; Neutrophils # (auto) 4.03 K/uL (1.4-6.5); Neutrophils % (auto) 69.2 %; Platelet Count 58 K/uL (130-400); RDW Coefficient of Variation 20.3 % (11.5-14.5); RDW Standard Deviation 72.5 fL (36.4-46.3); Red Blood Count 3.09 M/uL (4.2-5.4); White Blood Count 5.82 K/uL (4.8-10.8)
[2018-12-16 05:21] LABS: BUN Creatinine Ratio 6.8 (10-20); Calcium 7.7 mg/dl (8.5-10.1); Creatinine Clr Calc Pharmacy 8.8 ml/min; Est GFR (African American) 9.1; Est GFR (Non-African American) 7.8; Magnesium 2.1 mg/dl (1.8-2.4); Phosphorus 5.9 mg/dl (2.5-4.9); Troponin I 0.418 ng/ml (0-0.045)
[2018-12-16] MEDS: LEVOTHYROXINE SODIUM 75 MCG TABLET PO SCH (05:52)
--- NOTE | 2018-12-16 07:07 | XRay Report ---
XR chest 1V portable HISTORY: Shortness of breath. COMPARISON: Chest 12/15/2018. FINDINGS: The heart remains enlarged. Mild central pulmonary vascular congestion has slightly progres sed. No pneumothorax. No definite pleural effusions. Right-sided dual-chamber pacemaker. Old, healed left-sided rib fractures. Patchy densities within the right lung base has slightly progressed. IMPRESSION: 1. Interval progression of the mild pulmonary vascular congestion. 2. Stable cardiomegaly. 3. Patchy densities within the right lower lobe have slightly progressed. This may be a result of the suspected developing pulmonary edema. Electronically signed by: Rik Vora M.D. 12/16/2018 7:05 AM
[2018-12-16] MEDS: PIPERACILLIN/TAZOBACTAM 4.5 GM in DEXTROSE 5% 100 ML IV SCH ×2 (08:48→19:55)
--- NOTE | 2018-12-16 08:48 | Critical Care Progress Note ---
Date of Service December 16, 2018 Assessment & Plan (1) Anxiety: (2) Influenza A: (3) HCAP (healthcare-associated pneumonia): 73yoF with hx of ESRD, DM2, pAF, symptomatic bradycardia with pacemaker, EVERTON with bipap use, hx of TIA, hx of PE, GERD, anxiety, and depression presented with respiratory failure and septic shock in the setting of volume overload and influenza/HCAP. Now on levophed and on NC. NEURO: [facility] ICU: negative Pain Rx: Tylenol 500mg Q6H Continue gabapentin and zoloft CARDIAC/VASCULAR: Septic shock in the setting of HCAP and influenza Non-ischemic cardiomyopathy - mild elevation of troponin secondary to demand ischemia in combination with underlying renal disease; Acute on chronic R sided heart failure Troponins stabilized 0.47, 0.45, 0.48 EKG: AV dual paced rhythm 72, QTc 501 CXR: interval progression of mild pulm vascular congestion, RLL opacity, stable cardiomegaly HD stable on Levophed Continue midodrine, amiodarone, apsirin PULM: EVERTON on Bipap On NC 1L CXR: interval progression of mild pulm vascular congestion, RLL opacity, stable cardiomegaly Continue home bipap at night GI: On Zantac and probiotic HH and DM2 diet : No arnold RENAL/LYTES: ESRD Na 131, phos 5.7 BUN/Cr 34/5.02 HD today On Phoslo ENDO: DM2 - on lantus 5 u BID and Novolog Hypothyroidism - on levothyroxine 75mg daily HEME: H/H stable Monitor CBC ID: HCAP and influenza Influenza A positive BCx 2 NGTD On Zosyn On Tamiflu LINES: Triple lumen femoral cath and PIVx 1 L upper arm dialysis fistula DVT prop: Heparin 5000 SQ Q12H Code: DNR Dispo: pending clinical improvement off pressors to telemetry (4) Hypothyroidism: (5) Depression: (6) Paroxysmal atrial fibrillation: (7) GERD (gastroesophageal reflux disease): (8) DM type 2 (diabetes mellitus, type 2): (9) Chronic diastolic CHF (congestive heart failure): (10) EVERTON treated with BiPAP: (11) Pacemaker: (12) Hypertension: (13) ESRD (end stage renal disease) on dialysis: Supervising Physician Co-Signing Physician Notes Dr. Murray was resident physician during care of patient. I separately evaluated patient for langford portions of the history and the exam. I was present during the critical portion of medical decision making, and I discussed the case with the resident. I generally agree with the findings and plan. Patient still requiring vasoactive medication. She does appear to be volume overloaded on clinical exam, reinstituting Midrin and attempting to wean off Levophed discussed with nephrology plan to dialyze later today. Continuing IV antibiotics, chest x-ray is concerning for possible infiltrate versus pulmonary edema Patient was discussed on multidisciplinary rounds. I have personally spent 35 minutes of critical care time in the direct management of this patient. This is a life/limb threatening event. This includes time spent evaluating patient, direct bedside care, chart review, placing orders, interpretation of diagnostic studies, discussion with consultants, patient, and/or family members regarding treatment decisions, as well as other required patient management activities. This time is exclusive of all separately billable procedures, and teaching time and separate from and in addition to any other critical care service time. Subjective This AM pt sating well on 1L NC. Remains on Levophed to maintain BP. Denies any f/c, QUEEN/dizziness, cp, sob, abdominal pain, n/v, constipation, dysuria. Physical Exam 2 Vital Signs (Past 24 Hours): Last Vital Signs Temp 36.7 C 12/16/18 04:00 Pulse 70 12/16/18 04:00 Resp 18 12/16/18 04:00 BP 92/53 L 12/16/18 04:00 Pulse Ox 97 12/16/18 04:00 Physical Exam: General: In NAD CV: RRR, no m/r/g Pulm: diffuse rhonchi, coarse but equal breath sounds bilaterally, no wheezing or crackles appreciated Abdomen: +BS, non-distended, nontender to palpation in all quadrants LE: no calf tenderness or LE edema bilaterally Results & Data Laboratory Results Abnormal lab results 12/15/18 12/15/18 12/15/18 Range/Units 12:47 17:04 20:10 RBC (4.2-5.4) M/uL Hgb (12.0-16.0) g/dL Hct (37-47) % RDW Std Deviation (36.4-46.3) fL RDW Coeff of Anatoly (11.5-14.5) % Plt Count (130-400) K/uL Lymph # (Auto) (1.2-3.4) K/uL Sodium (136-145) mmol/L Chloride (98-107) mmol/L BUN (7-18) mg/dl Creatinine (0.6-1.2) mg/dl BUN/Creatinine Ratio (10-20) Glucose (70-99) mg/dl POC Glucose (other) 151 H 270 H 274 H (70-99) mg/dl Calcium (8.5-10.1) mg/dl Phosphorus (2.5-4.9) mg/dl Troponin I (0-0.045) ng/ml 12/15/18 12/16/18 12/16/18 Range/Units 23:54 03:36 04:23 RBC 3.09 L (4.2-5.4) M/uL Hgb 9.8 L (12.0-16.0) g/dL Hct 30.6 L (37-47) % RDW Std Deviation 72.5 H (36.4-46.3) fL RDW Coeff of Anatoly 20.3 H (11.5-14.5) % Plt Count 58 L (130-400) K/uL Lymph # (Auto) 1.07 L (1.2-3.4) K/uL Sodium (136-145) mmol/L Chloride (98-107) mmol/L BUN (7-18) mg/dl Creatinine (0.6-1.2) mg/dl BUN/Creatinine Ratio (10-20) Glucose (70-99) mg/dl POC Glucose (other) 183 H 119 H (70-99) mg/dl Calcium (8.5-10.1) mg/dl Phosphorus (2.5-4.9) mg/dl Troponin I (0-0.045) ng/ml 12/16/18 Range/Units 04:23 RBC (4.2-5.4) M/uL Hgb (12.0-16.0) g/dL Hct (37-47) % RDW Std Deviation (36.4-46.3) fL RDW Coeff of Naatoly (11.5-14.5) % Plt Count (130-400) K/uL Lymph # (Auto) (1.2-3.4) K/uL Sodium 131 L (136-145) mmol/L Chloride 95 L (98-107) mmol/L BUN 34 H (7-18) mg/dl Creatinine 5.02 H* D (0.6-1.2) mg/dl BUN/Creatinine Ratio 6.8 L (10-20) Glucose 111 H (70-99) mg/dl POC Glucose (other) (70-99) mg/dl Calcium 7.7 L (8.5-10.1) mg/dl Phosphorus 5.9 H (2.5-4.9) mg/dl Troponin I 0.418 H* (0-0.045) ng/ml Diagnostic Findings XR chest 1V portable HISTORY: Shortness of breath. COMPARISON: Chest 12/15/2018. FINDINGS: The heart remains enlarged. Mild central pulmonary vascular congestion has slightly progressed. No pneumothorax. No definite pleural effusions. Right-sided dual-chamber pacemaker. Old, healed left-sided rib fractures. Patchy densities within the right lung base has slightly progressed. IMPRESSION: 1. Interval progression of the mild pulmonary vascular congestion. 2. Stable cardiomegaly. 3. Patchy densities within the right lower lobe have slightly progressed. This may be a result of the suspected developing pulmonary edema Medications Administered Current Inpatient Medications Acetaminophen (Tylenol) 500 mg PO Q6H PRN PRN Reason: Pain or Fever Stop: 01/15/19 06:52 Amiodarone HCl (Cordarone) 200 mg PO QAM [facility] Stop: 01/14/19 08:59 Last Admin: 12/16/18 08:49 Dose: 200 mg Aspirin (Ecotrin Ectab) 81 mg PO QAM [facility] Stop: 01/14/19 08:59 Last Admin: 12/16/18 08:49 Dose: 81 mg Calcium Acetate (Phoslo) 667 mg PO QDL [facility] Stop: 01/14/19 11:29 Last Admin: 12/15/18 14:02 Dose: Not Given Gabapentin (Neurontin) 200 mg PO AMHS [facility] Stop: 01/13/19 20:59 Last Admin: 12/16/18 08:49 Dose: 200 mg Heparin Sodium (Beef Lung) (Heparin Sod 10 Unit/Ml Flush) 5 ml FLUSH PRN PRN PRN Reason: Flush Stop: 01/14/19 01:03 Heparin Sodium (Porcine) (Heparin Sodium (Porcine)) 5,000 units SQ Q12H [facility] Stop: 01/14/19 07:59 Last Admin: 12/15/18 09:42 Dose: 5,000 units Norepinephrine Bitartrate 8 mg (/ Dextrose) 508 mls @ 13.83 mls/hr IV .Q24H [facility] ; Protocol Stop: 01/13/19 14:56 Last Admin: 12/15/18 17:16 Dose: 0.05 mcg/kg/min, 13.8 mls/hr Piperacillin Sod/Tazobactam (Sod 4.5 gm/ Dextrose) 120 mls @ 30 mls/hr IV Q12H [facility]; Protocol Stop: 12/21/18 21:59 Last Admin: 12/16/18 08:48 Dose: 30 mls/hr Insulin Aspart (Novolog Flexpen) 0 units SC Q4 [facility] Stop: 01/14/19 11:59 Last Admin: 12/16/18 08:56 Dose: Not Given Insulin Glargine (Lantus Solostar Pen) 5 units SC BID [facility] Stop: 01/15/19 08:59 Last Admin: 12/16/18 08:50 Dose: 5 units Lactobacillus Acidophilus (Floranex Granules/Powder Packet) 1 gm PO TIDM [facility] Stop: 01/15/19 07:59 Last Admin: 12/16/18 08:49 Dose: 1 gm Levothyroxine Sodium (Synthroid) 75 mcg PO DAILYBB [facility] Stop: 01/14/19 06:29 Last Admin: 12/16/18 05:52 Dose: 75 mcg Midodrine (Proamatine) 10 mg PO MoWeFr@0900 [facility] Stop: 01/15/19 08:59 Midodrine (Proamatine) 20 mg PO TuThSa@0900 [facility] Stop: 01/16/19 08:59 Miscellaneous Information (Consult) 1 ea N/A UD PRN PRN Reason: Consult Stop: 01/13/19 15:07 Miscellaneous Information (Consult Glycemic Management Pharmacy) 1 ea N/A UD PRN PRN Reason: Consult Stop: 01/13/19 19:01 Multivitamins (Multivitamin Tab) 1 tab PO QAM [facility] Stop: 01/14/19 08:59 Last Admin: 12/16/18 08:54 Dose: 1 tab Oseltamivir Phosphate (Tamiflu) 30 mg PO TuThSa@2200 [facility]; Protocol Stop: 12/19/18 21:59 Last Admin: 12/14/18 22:10 Dose: 30 mg Ranitidine HCl (Zantac) 37.5 mg PO DAILY [facility] Stop: 01/14/19 08:59 Last Admin: 12/16/18 08:51 Dose: 37.5 mg Sertraline HCl (Zoloft) 100 mg PO HS [facility] Stop: 01/13/19 20:59 Last Admin: 12/15/18 20:14 Dose: 100 mg Resident Activity Tracking Resident Involvement: Resident Care Provided Care Provided: [facility] _ (1) Hypothyroidism Hypothyroidism type: unspecified Qualified Code(s): E03.9 - Hypothyroidism, unspecified (2) GERD (gastroesophageal reflux disease) Esophagitis presence: without esophagitis Qualified Code(s): K21.9 - Gastro- esophageal reflux disease without esophagitis
[2018-12-16] MEDS: AMIODARONE 200 MG TAB PO SCH (08:49)
[2018-12-16] MEDS: ASPIRIN 81 MG ECTAB PO SCH (08:49)
[2018-12-16] MEDS: LACTOBACILLUS ACIDOPHILUS 1 GM PACK PO SCH ×3 (08:49→18:04)
[2018-12-16] MEDS: GABAPENTIN 100 MG CAP PO SCH ×2 (08:49→21:07)
[2018-12-16] MEDS: RANITIDINE HCL SYRUP 150 MG/10 ML UDC PO SCH (08:51)
[2018-12-16] MEDS: MULTIVITAMIN TAB PO SCH (08:54)
[2018-12-16] MEDS ORDERED: INSULIN GLARGINE SOLOSTAR 100 UNITS/ML 3 ML PEN SC SCH (09:00)
[2018-12-16] MEDS ORDERED: MIDODRINE HCL 10 MG TAB PO SCH (09:00)
[2018-12-16] MEDS: CALCIUM ACETATE 667 MG CAP PO SCH (12:17)
--- NOTE | 2018-12-16 12:57 | Nephrology Progress Note ---
Date of Service December 16, 2018 Assessment & Plan (1) ESRD (end stage renal disease) on dialysis: Patient with ESRD on dialysis Sunday. She was admitted with acute respiratory distress and shock. She is grossly volume overload. Electrolytes are acceptable. Will do UF today for 2hrs and target net loss of 2.5 litre (2) Sepsis: Patient with sepsis due to influenza pneumonia. She is receiving Tamiflu. She is also being covered with Zosyn. Continue Levophed. Avoid IV fluids. Start midodrine 10mg po tid and wean off levophed after HD today (3) Fluid overload: Patient with volume overload. Chest x-ray showing pulmonary vascular congestion. Will attempt 2.5 litre UF. Oxygenation is stable. (4) Anemia of renal disease: Hemoglobin of 9.8 today which is below target. Will give JULIOCESAR 10,000 units with HD AM Subjective ESRD patient seen in follow up for volume overload and septic shock. She reports no SOB. She remains on levophed. More awake today. She is still hypotensive. Has sweeling in the trunk Review of Systems All systems reviewed & are unremarkable except as noted in HPI & below Physical Exam 2 Vital Signs (Past 24 Hours): Last Vital Signs Temp 36.7 C 12/16/18 04:00 Pulse 70 12/16/18 04:00 Resp 18 12/16/18 04:00 BP 92/53 L 12/16/18 04:00 Pulse Ox 97 12/16/18 04:00 Physical Exam: General exam: Appears comfortable, no acute distress HEENT: Pupils are equal and reactive to light Neck: No JVD, neck is supple trachea is midline Respiratory system: Clear breath sounds bilaterally. Gastrointestinal: Abdomen is soft, non distended, non tender, bowel sounds are present CVS: Regular rate and rhythm. No murmurs, rubs or gallops Musculoskeletal: No joint or muscle tenderness Extremities: Non tender, 2+ edema, peripheral pulses are present Neuro: Oriented, no tremors, no focal neurological deficits Skin: No rashes Access left UA AVF with good bruit Results & Data Laboratory Results Hb 9.8, k 4 _ (1) Sepsis Sepsis type: sepsis due to unspecified organism Qualified Code(s): A41.9 - Sepsis, unspecified organism
--- NOTE | 2018-12-16 14:01 | Pharmacy Report ---
Pharmacy Glycemic Short Note 2 - Date of Service December 16, 2018 - Glycemic Short BSG Results (Last 24 hours): 12/15/18 12/15/18 12/15/18 17:04 20:10 23:54 Glucose POC Glucose (other) 270 H 274 H 183 H 12/16/18 12/16/18 12/16/18 03:36 04:23 07:20 Glucose 111 H POC Glucose (other) 119 H 93 12/16/18 11:52 Glucose POC Glucose (other) 169 H OUTPATIENT ANTIDIABETIC REGIMEN (PER CURRENT MED REC): * Lantus 22 units HS * Novolog 10 units w/ each meal * A1c = 6.7% 12/01/18 however result should be interpreted w/ caution given ESRD ; pt specific trends and BSG log more appropriate to evaluate control CURRENT REGIMEN: * Lantus 3 units SQ BID, with an additional 7 units given with pm dose yesterday * Novolog Q 4 hrs * Goal Range: 120-160mg/dL * Correction Factor: 25mg/dL * Carb Ratio: 10 ASSESSMENT: 12/16 * Patient with hyperglycemic episode last evening (addition of a diet likely contributing), necessitating additional dose of lantus. BSGs much improved today. 5 units of lantus was ordered this morning and a lantus scale will be ordered for this evening. Will continue with q4 hour novolog at this time as previously mentioned stressors remaIn. 12/15 * Type 2 diabetic from [facility] admitted yesterday for mental status changes, hypotension, fluid overload and reported new infiltrate on CXR * She is managed w/ basal bolus regimen at [facility] and will continue the same here * She is familiar to the glycemic control service from prior admissions. Will use prior admission data to initiate insulin regimen here * Given current stressors: NE infusion, possible infxn - will change BSG frequency to Q 4 hrs and cover w/ Novolog. Will split Lantus dose BID for ease of titration * She remains NPO this AM, BSGs are at goal thus far - will continue with relatively low doses of Lantus for time being while relying of Q 4 hr correction should basal dose be inadequate PLAN FOR INPATIENT GLYCEMIC CONTROL: * Basal insulin * Lantus 5 units SQ this AM * Lantus 5 or 8 units based on BSG this evening * Bolus insulin * NovoLog per scale Q 4 hrs * Goal Range: Low 120 mg/dL - High 160 mg/dL * Correction Factor: 25 mg/dL/unit * Nutritional / Prandial insulin per carb ratio of 1 unit per 11 grams CHO consumed PLAN FOR DISCHARGE: * to be determined
[2018-12-16] MEDS: ACETAMINOPHEN 500 MG TAB PO PRN (14:58)
[2018-12-16 15:20] LABS: Hematocrit (blood only) 32.2 % (37-47); Hemoglobin 10.2 g/dL (12.0-16.0); Mean Corpuscular Hgb Conc 31.7 g/dL (32-36); Mean Corpuscular Volume 98.8 fL (80-100); RDW Standard Deviation 71.7 fL (36.4-46.3); Red Blood Count 3.26 M/uL (4.2-5.4); White Blood Count 6.24 K/uL (4.8-10.8)
[2018-12-16] MEDS: MIDODRINE HCL 10 MG TAB PO SCH (15:30)
[2018-12-16] MEDS: NOREPINEPHRINE BIT INJ 8 MG in DEXTROSE 5% 500 ML IV SCH (15:30)
[2018-12-16 15:37] LABS: Anisocytosis Present; Basophils # (auto) 0.02 K/uL (0-0.2); Basophils % (auto) 0.3 %; Eosinophils # (auto) 0.13 K/uL (0-0.5); Eosinophils % (auto) 2.1 %; Immature Granulocytes # (auto) 0.02 K/uL (0.00-0.02); Immature Granulocytes % (auto) 0.3 %; Lymphocytes # (auto) 1.06 K/uL (1.2-3.4); Monocytes # (auto) 0.54 K/uL (0.11-0.59); Monocytes % (auto) 8.7 %; Neutrophils # (auto) 4.47 K/uL (1.4-6.5); Neutrophils % (auto) 71.6 %; Platelet Count 64 K/uL (130-400); Target Cells 1+
--- NOTE | 2018-12-16 18:53 | Hospitalist Progress Note ---
Date of Service December 16, 2018 Assessment & Plan (1) HCAP (healthcare-associated pneumonia): was started on Vancomycin and Zosyn on 12/15/18 had dialysis on 12/15/18 with some improvements of pulmonary infiltrates had been on Zosyn alone from 12/15/18 to 12/16/18 and continuing admission blood cultures have no growth to date will discuss with ICU physician on whether patient continues to need broad spectrum antibiotics versus antibiotic de-escalation as patient having clinical improvements with dialysis sessions. she still remains on pressors and it may be that patient needs further midrodrine titration (2) Influenza A: found to be Influenza A positive on admission on 12/14/18, started on Tamiflu continue Tamiflu Diarrhea may be from influenza continue lactobacillus supplements tabs (3) Shock: was on admission day 12/14/18 sent sent from outpatient dialysis for evaluation of altered mental status In the ED, patient minimally responsive, hypotensive, volume overloaded, tested positive for influenza A, CXR showing right basilar consolidation admitted to ICU on 12/14/18 for pressors support to do dialysis continues to be on Levophed on ICU as of 12/16/18 restarting midrodrine on 12/16/18 (4) Nonischemic cardiomyopathy: -No reports of chest pain, EKG demonstrates paced rhythm -Likely secondary to demand ischemia in combination with underlying renal disease -troponins stabilized as 0.47, 0.45, 0.48 (5) Acute on chronic right-sided congestive heart failure: treat with dialysis (6) ESRD (end stage renal disease) on dialysis: Patient with ESRD and usually on dialysis Sunday/ / Sunday 2 liters of fluid removed in ICU on Sunday12/14/18 while on pressors had dialysis on Sunday12/16/18 while on pressors nephrology service continues to follow (7) Elevated troponin: -No reports of chest pain, EKG demonstrates paced rhythm -Likely secondary to demand ischemia in combination with underlying renal disease -troponins stabilized as 0.47, 0.45, 0.48 (8) Elevated liver enzymes: -Noted elevated LFTs during previous admission -Recent abdominal imaging demonstrated possible cirrhosis -transminitis on this admission likely due to volume congestion - the AST and ALT are stabilizing and not trending up -Hold statin (9) DM type 2 (diabetes mellitus, type 2): -Hgb A1c 6.7 11/2018 -Pharmacy consult for glycemic management PLAN FOR INPATIENT GLYCEMIC CONTROL: Basal insulin Lantus 5 units SQ this AM Lantus 5 or 8 units based on BSG this evening Bolus insulin NovoLog per scale Q 4 hrs Goal Range: Low 120 mg/dL - High 160 mg/dL Correction Factor: 25 mg/dL/unit Nutritional / Prandial insulin per carb ratio of 1 unit per 11 grams CHO consumed (10) Paroxysmal atrial fibrillation: -Rhythm controlled on amiodarone -Not anticoagulated secondary to history of hemorrhagic pericarditis and tamponade (11) QT prolongation: -Avoid QTC prolonging agents -Daily EKG (12) Wound of left ankle: -Appears to be healing well -During previous admission was discharged on Augmentin for treatment, will hold for now due to being on Zosyn as above (13) Hypothyroidism: -Continue levothyroxine (14) Symptomatic bradycardia: currently without cardiac events (15) Pacemaker: -No acute issues (16) Anxiety: (17) Depression: -hold clonazepam -hold citalopram (was being transitioned to sertraline alone as sertraline) -continue setraline (18) TIA (transient ischemic attack): -Continue aspirin -Holding statin as above (19) GERD (gastroesophageal reflux disease): -Continue H2 claudia (20) Pulmonary embolism: as per history, no acute PE or DVT on this presentation Not on long-term anticoagulation candidate due to H/O hemorrhagic pericarditis/ tamponade (21) DVT (deep venous thrombosis): as per history, no acute PE or DVT on this presentation Not on long-term anticoagulation candidate due to H/O hemorrhagic pericarditis/ tamponade (22) S/P IVC filter: History of IVC filter (23) EVERTON treated with BiPAP: -BiPAP as per home settings (24) DVT prophylaxis: -SQ heparin Subjective Patient remains on norepinephrine (levophed) in the ICU and finished dialysis session. Patient awake and alert. answering questions appropriately patient denies abdominal pain. denies vomiting. denies chest pain or palpitations or headache or lightheadedness Patient is anuric Physical Exam 2 Vital Signs (Past 24 Hours): Last Vital Signs Temp 36.4 C L 12/16/18 17:34 Pulse 72 12/16/18 17:45 Resp 18 12/16/18 17:45 BP 114/56 L 12/16/18 17:45 Pulse Ox 92 12/16/18 17:45 Constitutional: WD/WN, vitals as above ENMT: external ear and nose normal, oropharynx normal Respiratory: normal respiratory effort, lungs clear to auscultation Cardiovascular: Rate/Rhythm: regular rate and regular rhythm Vessels: normal peripheral pulses Gastrointestinal (Abdomen): normal bowel sounds, soft, nontender, no hepatosplenomegaly Musculoskeletal: Extremities: no cyanosis and no clubbing Skin: no rashes, warm and dry Neurologic: PERRL, EOMI, accommodation nl, no face palsy, no dysarthria Psychiatric: A+Ox3, euthymic affect _ (1) Hypothyroidism Hypothyroidism type: unspecified Qualified Code(s): E03.9 - Hypothyroidism, unspecified (2) GERD (gastroesophageal reflux disease) Esophagitis presence: without esophagitis Qualified Code(s): K21.9 - Gastro- esophageal reflux disease without esophagitis (3) Pulmonary embolism Pulmonary embolism type: unspecified Chronicity: unspecified Acute cor pulmonale presence: without acute cor pulmonale Qualified Code(s): I26.99 - Other pulmonary embolism without acute cor pulmonale
[2018-12-16] MEDS ORDERED: ALBUMIN 25% 50 ML IV STA (19:52)
[2018-12-16] MEDS: HEPARIN SOD 5,000 UNIT/0.5 ML VIAL SQ SCH (19:56)
[2018-12-16] MEDS: SERTRALINE HCL 100 MG TABLET PO SCH (21:06)
[2018-12-16] MEDS: INSULIN GLARGINE SOLOSTAR 100 UNITS/ML 3 ML PEN SC SCH (21:08)
[2018-12-17] MEDS: INSULIN ASPART 100 UNITS/ML 3 ML PEN SC SCH ×7 (00:29→20:37)
[2018-12-17] MEDS: ACETAMINOPHEN 500 MG TAB PO PRN ×3 (02:09→20:27)
[2018-12-17 05:11] LABS: Calcium 7.6 mg/dl (8.5-10.1); Creatinine Clr Calc Pharmacy 8.2 ml/min; Est GFR (African American) 8.1; Phosphorus 5.8 mg/dl (2.5-4.9); Potassium 4.3 mmol/L (3.5-5.1)
[2018-12-17 05:13] LABS: Hemoglobin 10.3 g/dL (12.0-16.0); Mean Corpuscular Hgb Conc 32.2 g/dL (32-36); Platelet Count 67 K/uL (130-400); RDW Coefficient of Variation 19.5 % (11.5-14.5); RDW Standard Deviation 69.3 fL (36.4-46.3); White Blood Count 6.72 K/uL (4.8-10.8)
[2018-12-17 05:14] LABS: Basophils # (auto) 0.01 K/uL (0-0.2); Basophils % (auto) 0.1 %; Eosinophils # (auto) 0.25 K/uL (0-0.5); Eosinophils % (auto) 3.7 %; Immature Granulocytes # (auto) 0.02 K/uL (0.00-0.02); Immature Granulocytes % (auto) 0.3 %; Lymphocytes # (auto) 1.39 K/uL (1.2-3.4); Lymphocytes % (auto) 20.7 %; Monocytes # (auto) 0.66 K/uL (0.11-0.59); Monocytes % (auto) 9.8 %; Neutrophils # (auto) 4.39 K/uL (1.4-6.5); Neutrophils % (auto) 65.4 %
[2018-12-17] MEDS: LEVOTHYROXINE SODIUM 75 MCG TABLET PO SCH (06:48)
--- NOTE | 2018-12-17 07:18 | XRay Report ---
XR chest 1V portable CLINICAL HISTORY: Shortness of breath. Congestive failure. COMPARISON STUDY: 12/16/2018 FINDINGS: The heart remains enlarged. There is a right subclavian dual-chamber central venous pacemak er present. There is continued radiographic evidence of mild pulmonary vascular congestion. Patchy ai rspace opacities, likely represent focal edema although an infectious process could appear similar. T here are no large pleural effusions.[ IMPRESSION: Cardiomegaly and persistent pulmonary vascular congestion. Electronically signed by: Danilo Hathaway M.D. 12/17/2018 7:17 AM
[2018-12-17] MEDS: MIDODRINE HCL 10 MG TAB PO SCH ×3 (07:48→18:47)
[2018-12-17] MEDS: LACTOBACILLUS ACIDOPHILUS 1 GM PACK PO SCH ×3 (07:48→18:47)
[2018-12-17] MEDS: RANITIDINE HCL SYRUP 150 MG/10 ML UDC PO SCH (07:49)
[2018-12-17] MEDS: GABAPENTIN 100 MG CAP PO SCH ×2 (07:49→20:30)
[2018-12-17] MEDS: INSULIN GLARGINE SOLOSTAR 100 UNITS/ML 3 ML PEN SC SCH ×2 (07:50→20:41)
[2018-12-17] MEDS: ASPIRIN 81 MG ECTAB PO SCH (07:50)
[2018-12-17] MEDS: PIPERACILLIN/TAZOBACTAM 4.5 GM in DEXTROSE 5% 100 ML IV SCH (07:51)
[2018-12-17] MEDS: AMIODARONE 200 MG TAB PO SCH (07:51)
[2018-12-17] MEDS: MULTIVITAMIN TAB PO SCH (07:51)
[2018-12-17] MEDS ORDERED: SODIUM CHLORIDE 0.9% 1000ML 1,000 ML IV PRN (08:32)
[2018-12-17] MEDS ORDERED: MIDODRINE HCL 10 MG TAB PO SCH (09:00)
--- NOTE | 2018-12-17 09:09 | Critical Care Progress Note ---
Date of Service December 17, 2018 Assessment & Plan (1) Anxiety: (2) Influenza A: (3) HCAP (healthcare-associated pneumonia): 73yoF with hx of ESRD, DM2, pAF, symptomatic bradycardia with pacemaker, EVERTON with bipap use, hx of TIA, hx of PE, GERD, anxiety, and depression presented with respiratory failure and septic shock in the setting of influenza/ HCAP and volume overload . Now on levophed and on NC 1L NEURO: CAM ICU: negative Pain Rx: Dilaudid 0.5mg IV x 1, Tylenol 500mg Q6H PRN Continue gabapentin and zoloft CARDIAC/VASCULAR: Septic shock in the setting of HCAP and influenza Non-ischemic cardiomyopathy - mild elevation of troponin secondary to demand ischemia in combination with underlying renal disease; Acute on chronic R sided heart failure Troponins stabilized 0.47, 0.45, 0.48 EKG: AV dual paced rhythm 72, QTc 501 CXR: interval progression of mild pulm vascular congestion, RLL opacity, stable cardiomegaly HD stable on Levophed --> wean as tolerated Continue midodrine, amiodarone, apsirin PULM: EVERTON on Bipap On NC 1L CXR: Cardiomegaly and persistent pulmonary vascular congestion Continue home bipap at night GI: On Zantac and probiotic HH and DM2 diet : No arnold, anuric RENAL/LYTES: ESRD with volume overload Na 129, phos 5.8 BUN/Cr 38/5.49 Renal following, HD today On Phoslo Continue to monitor BMP ENDO: DM2 - on lantus and Novolog Hypothyroidism - on levothyroxine 75mg daily HEME: H/H Improving Monitor CBC ID: HCAP and influenza Influenza A positive BCx 2 NGTD Lactate this AM 1.7 Received zosyn x 3 days - deced On Tamiflu LINES: Triple lumen femoral cath and PIVx 1 L upper arm dialysis fistula DVT prop: Heparin 5000 SQ Q12H Code: DNR Dispo: pending clinical improvement off pressors to telemetry (4) Hypothyroidism: (5) Depression: (6) Paroxysmal atrial fibrillation: (7) GERD (gastroesophageal reflux disease): (8) DM type 2 (diabetes mellitus, type 2): (9) Chronic diastolic CHF (congestive heart failure): (10) EVERTON treated with BiPAP: (11) Pacemaker: (12) Hypertension: (13) ESRD (end stage renal disease) on dialysis: Supervising Physician Co-Signing Physician Notes Dr. Murray was resident physician during care of patient. I separately evaluated patient for langford portions of the history and the exam. I was present during the critical portion of medical decision making, and I discussed the case with the resident. I generally agree with the findings and plan. We have discontinued vasoactive medications today patient's blood pressure is 70 systolic however the patient is reporting that she feels fine. We will plan to check serial lactates to make sure there is no issue with endorgan perfusion. Patient remains afebrile, we are discontinuing antibiotics at this time. Nephrology has restarted the patient's Midrin. I believe the hypotension is secondary to the patient's end-stage renal disease Patient reports that she was unable to fit her home facemask, we are ordering respiratory therapy to assist with nightly CPAP mask fitting Patient was discussed on multidisciplinary rounds. I have personally spent 35 minutes of critical care time in the direct management of this patient. This is a life/limb threatening event. This includes time spent evaluating patient, direct bedside care, chart review, placing orders, interpretation of diagnostic studies, discussion with consultants, patient, and/or family members regarding treatment decisions, as well as other required patient management activities. This time is exclusive of all separately billable procedures, and teaching time and separate from and in addition to any other critical care service time. Subjective This AM pt sating well on 1L NC this AM and enjoying breakfast when examined. Remains on Levophed due to hypotension but CVP wnl. Pt likely chronically hypotensive in the setting of ESRD. Denies any f/c, QUEEN/dizziness, cp, sob, abdominal pain, n/v, constipation, dysuria. Physical Exam 2 Vital Signs (Past 24 Hours): Last Vital Signs Temp 37 C 12/17/18 00:00 Pulse 73 12/17/18 04:00 Resp 18 12/17/18 04:00 BP 79/50 L 12/17/18 04:00 Pulse Ox 100 12/17/18 03:00 Physical Exam: General: In NAD CV: RRR, no m/r/g Pulm: diffuse rhonchi, coarse but equal breath sounds bilaterally, no wheezing or crackles appreciated Abdomen: +BS, non-distended, nontender to palpation in all quadrants LE: no calf tenderness or LE edema bilaterally Results & Data Laboratory Results Abnormal lab results 12/16/18 12/16/18 12/16/18 Range/Units 11:52 15:02 16:47 RBC 3.26 L (4.2-5.4) M/uL Hgb 10.2 L (12.0-16.0) g/dL Hct 32.2 L (37-47) % MCHC 31.7 L (32-36) g/dL RDW Std Deviation 71.7 H (36.4-46.3) fL RDW Coeff of Anatoly 20.0 H (11.5-14.5) % Plt Count 64 L (130-400) K/uL Lymph # (Auto) 1.06 L (1.2-3.4) K/uL [place] # (Auto) (0.11-0.59) K/uL Sodium (136-145) mmol/L Chloride (98-107) mmol/L BUN (7-18) mg/dl Creatinine (0.6-1.2) mg/dl BUN/Creatinine Ratio (10-20) Glucose (70-99) mg/dl POC Glucose (other) 169 H 169 H (70-99) mg/dl Calcium (8.5-10.1) mg/dl Phosphorus (2.5-4.9) mg/dl 12/17/18 12/17/18 12/17/18 Range/Units 03:59 03:59 07:27 RBC 3.30 L (4.2-5.4) M/uL Hgb 10.3 L (12.0-16.0) g/dL Hct 32.0 L (37-47) % MCHC (32-36) g/dL RDW Std Deviation 69.3 H (36.4-46.3) fL RDW Coeff of Anatoly 19.5 H (11.5-14.5) % Plt Count 67 L (130-400) K/uL Lymph # (Auto) (1.2-3.4) K/uL [place] # (Auto) 0.66 H (0.11-0.59) K/uL Sodium 129 L (136-145) mmol/L Chloride 93 L (98-107) mmol/L BUN 38 H (7-18) mg/dl Creatinine 5.49 H* D (0.6-1.2) mg/dl BUN/Creatinine Ratio 7.0 L (10-20) Glucose 112 H (70-99) mg/dl POC Glucose (other) 111 H (70-99) mg/dl Calcium 7.6 L (8.5-10.1) mg/dl Phosphorus 5.8 H (2.5-4.9) mg/dl Diagnostic Findings XR chest 1V portable CLINICAL HISTORY: Shortness of breath. Congestive failure. COMPARISON STUDY: 12/16/2018 FINDINGS: The heart remains enlarged. There is a right subclavian dual-chamber central venous pacemaker present. There is continued radiographic evidence of mild pulmonary vascular congestion. Patchy airspace opacities, likely represent focal edema although an infectious process could appear similar. There are no large pleural effusions.[ IMPRESSION: Cardiomegaly and persistent pulmonary vascular congestion. Medications Administered Current Inpatient Medications Acetaminophen (Tylenol) 500 mg PO Q6H PRN PRN Reason: Pain or Fever Stop: 01/15/19 06:52 Last Admin: 12/17/18 02:09 Dose: 500 mg Amiodarone HCl (Cordarone) 200 mg PO QAM [facility] Stop: 01/14/19 08:59 Last Admin: 12/17/18 07:51 Dose: 200 mg Aspirin (Ecotrin Ectab) 81 mg PO QAM [facility] Stop: 01/14/19 08:59 Last Admin: 12/17/18 07:50 Dose: 81 mg Calcium Acetate (Phoslo) 667 mg PO QDL [facility] Stop: 01/14/19 11:29 Last Admin: 12/16/18 12:17 Dose: 667 mg Gabapentin (Neurontin) 200 mg PO AMHS [facility] Stop: 01/13/19 20:59 Last Admin: 12/17/18 07:49 Dose: 200 mg Heparin Sodium (Beef Lung) (Heparin Sod 10 Unit/Ml Flush) 5 ml FLUSH PRN PRN PRN Reason: Flush Stop: 01/14/19 01:03 Heparin Sodium (Porcine) (Heparin Sodium (Porcine)) 5,000 units SQ Q12H [facility] Stop: 01/14/19 07:59 Last Admin: 12/17/18 10:25 Dose: 5,000 units Norepinephrine Bitartrate 8 mg (/ Dextrose) 508 mls @ 13.83 mls/hr IV .Q24H [facility] ; Protocol Stop: 01/13/19 14:56 Last Titration: 12/17/18 09:56 Dose: 0.05 mcg/kg/min, 13.8 mls/hr Sodium Chloride (Nss 1000ml) 1,000 mls @ 0 mls/hr IV .Q0M PRN PRN Reason: For Hemodialysis Use ONLY Stop: 12/17/18 14:31 Insulin Aspart (Novolog Flexpen) 0 units SC Q4 [facility] Stop: 01/14/19 11:59 Last Admin: 12/17/18 07:58 Dose: 1 units Insulin Glargine (Lantus Solostar Pen) 0 units SC BID [facility]; Protocol Stop: 01/15/19 20:59 Last Admin: 12/17/18 07:50 Dose: 5 units Lactobacillus Acidophilus (Floranex Granules/Powder Packet) 1 gm PO TIDM [facility] Stop: 01/15/19 07:59 Last Admin: 12/17/18 07:48 Dose: 1 gm Levothyroxine Sodium (Synthroid) 75 mcg PO DAILYBB [facility] Stop: 01/14/19 06:29 Last Admin: 12/17/18 06:48 Dose: 75 mcg Midodrine (Proamatine) 10 mg PO MoWeFr@0900 [facility] Stop: 01/15/19 08:59 Midodrine (Proamatine) 20 mg PO TuThSa@0900 [facility] Stop: 01/16/19 08:59 Midodrine (Proamatine) 10 mg PO TID@0800,1200,1700 [facility] Stop: 01/15/19 14:59 Last Admin: 12/17/18 07:48 Dose: 10 mg Miscellaneous Information (Consult Glycemic Management Pharmacy) 1 ea N/A UD PRN PRN Reason: Consult Stop: 01/13/19 19:01 Multivitamins (Multivitamin Tab) 1 tab PO QAM [facility] Stop: 01/14/19 08:59 Last Admin: 12/17/18 07:51 Dose: 1 tab Oseltamivir Phosphate (Tamiflu) 30 mg PO TuThSa@2200 [facility]; Protocol Stop: 12/19/18 21:59 Last Admin: 12/14/18 22:10 Dose: 30 mg Ranitidine HCl (Zantac) 37.5 mg PO DAILY [facility] Stop: 01/14/19 08:59 Last Admin: 12/17/18 07:49 Dose: 37.5 mg Sertraline HCl (Zoloft) 100 mg PO HS [facility] Stop: 01/13/19 20:59 Last Admin: 12/16/18 21:06 Dose: 100 mg Resident Activity Tracking Resident Involvement: Resident Care Provided Care Provided: [facility] Medicine _ (1) Hypothyroidism Hypothyroidism type: unspecified Qualified Code(s): E03.9 - Hypothyroidism, unspecified (2) GERD (gastroesophageal reflux disease) Esophagitis presence: without esophagitis Qualified Code(s): K21.9 - Gastro- esophageal reflux disease without esophagitis
[2018-12-17] MEDS ORDERED: HYDROmorphone INJ 0.5 MG/0.5 ML SYR IV STA (10:10)
[2018-12-17] MEDS: HEPARIN SOD 5,000 UNIT/0.5 ML VIAL SQ SCH ×2 (10:25→20:28)
--- NOTE | 2018-12-17 11:45 | Nephrology Progress Note ---
Date of Service December 17, 2018 Assessment & Plan (1) ESRD (end stage renal disease) on dialysis: Patient with ESRD on dialysis Sunday. She was admitted with acute respiratory distress and shock. Patient had initially refused dialysis due to extreme fatigue. She mentioned that she had been on dialysis for 10 years and was considering stopping dialysis. I informed patient that if she stopped dialysis she could possibly in days to weeks. I offered a palliative care consult. Patient informed me that she was not ready to and had a lot of things to look forward to. She requested dialysis this morning. She will continue to think about it and discuss with her children. She is grossly volume overload. Electrolytes are acceptable. Patient is being dialyzed this morning for 3 hours on a 3K bath to get UF of 2 L. She is tolerating dialysis well this morning. (2) Sepsis: Patient with sepsis due to influenza pneumonia. She is receiving Tamiflu. She is also being covered with Zosyn. Continue Levophed while on HD then start weaning off after HD. Continue midodrine 10mg po tid. (3) Fluid overload: Patient with volume overload. Chest x-ray showing pulmonary vascular congestion. Will attempt 2.0 litre UF. Oxygenation is stable. (4) Anemia of renal disease: Hemoglobin of 10.3 today which is at target. No need for JULIOCESAR at this morning Subjective ESRD patient seen in follow up for volume overload and septic shock. She reports no SOB. She complains of feeling wiped out. Initially patient had refused to do dialysis this morning due to extreme fatigue. She later accepted to do dialysis saying she did not want to . Patient was seen and examined on dialysis. She is tolerating dialysis well this morning. Constitutional: + malaise and + weakness Eyes: no problem reported Respiratory: no cough and no dyspnea Cardiovascular: + dyspnea on exertion and + edema Gastrointestinal: no nausea, no vomiting and no cramping Genitourinary (Female): no problem reported Muscle cramps on dialysis Neurologic: no confusion Physical Exam 2 Vital Signs (Past 24 Hours): Last Vital Signs Temp 37 C 12/17/18 00:00 Pulse 73 12/17/18 04:00 Resp 18 12/17/18 04:00 BP 79/50 L 12/17/18 04:00 Pulse Ox 100 12/17/18 03:00 Physical Exam: General exam: Appears comfortable, no acute distress HEENT: Pupils are equal and reactive to light Neck: No JVD, neck is supple trachea is midline Respiratory system: Clear breath sounds bilaterally. Gastrointestinal: Abdomen is soft, non distended, non tender, bowel sounds are present CVS: Regular rate and rhythm. No murmurs, rubs or gallops Musculoskeletal: No joint or muscle tenderness Extremities: Non tender, no edema, peripheral pulses are present Neuro: Oriented, no tremors, no focal neurological deficits Skin: No rashes Access: left UA AVF Results & Data Laboratory Results Sodium 129, potassium 4.3, BUN 38, creatinine 5.4, hemoglobin 10.3 _ (1) Sepsis Sepsis type: sepsis due to unspecified organism Qualified Code(s): A41.9 - Sepsis, unspecified organism
--- NOTE | 2018-12-17 13:05 | Palliative Care Consultation ---
Date of Consultation December 17, 2018 Assessment & Plan (1) Goals of care, counseling/discussion: -73 year old female with PMH ESRD, DM2, PAF, symptomatic bradycardia with pacemaker, EVERTON with bipap use, hx of TIA, hx of PE, GERD, anxiety, and depression presented with respiratory failure and septic shock in the setting of influenza/HCAP and volume overload. She was in hospital from 11/30-12/04 with acute on chronic right sided heart failure and left ankle wound. She was discharged home on Augmentin. She reportedly was not doing well and thought to be unsafe to be home alone by home health, so she was sent to [facility] for rehab. Her mental status was apparently waxing/waning at rehab. She was sent for her normal dialysis treatment and was found to be minimally responsive so she was sent to the ED. In Ed, she was lethargic/ unresponsive and hypotensive. Central line was placed, levophed started. She was found to be positive for Influenza A, CXR showed volume overload and right basilar consolidation. She was given IVF, vanco, zosyn and Tamiflu. Levophed was attempted to be weaned today, but her bp was in 70s and patient did not feel well. She remains in ICU. Was making comments about wanting to stop dialysis and pass away. Palliative care consulted to establish goals of care. -Met with patient in room 104. She is awake alert and oriented x4. Prior to last hospitalization, patient was independent at home. She feels she has good quality of life on some days, and other days she feels "so tired and worn out from dialysis, I think about just stopping." -When actually faced with stopping dialysis at this point, patient states she is NOT ready to stop. She does understand that stopping dialysis would mean that she would pass away in the near future. Patient states she has children and grandchildren to live for. She has had talks with her son Manny (who is her POA) about her wishes. She is currently a DNR. -Patient has a lot of issues with depression related to her "hard life." She has a daughter who struggles with depression and suicide. Of note, patient denied any suicidal thoughs or thoughts of harming herself. -Continue her antidepressant and recommend psychiatric follow up either with PCP or [facility]. -For now, continue current treatment. I will follow peripherally for now but please contact me with any further palliative care needs. (2) Anxiety: (3) Influenza A: (4) HCAP (healthcare-associated pneumonia): (5) Depression: -hold clonazepam -hold citalopram (was being transitioned to sertraline alone as sertraline) -continue setraline (6) Paroxysmal atrial fibrillation: -Rhythm controlled on amiodarone -Not anticoagulated secondary to history of hemorrhagic pericarditis and tamponade (7) Chronic diastolic CHF (congestive heart failure): (8) EVERTON treated with BiPAP: -BiPAP as per home settings (9) ESRD (end stage renal disease) on dialysis: History of Present Illness Reason for Consultation: Goals of care Requesting Physician: Dr. Murray Attending Physician: Misael Lieberman MD History of Present Illness This 73 year old female with PMH ESRD, DM2, PAF, symptomatic bradycardia with pacemaker, EVERTON with bipap use, hx of TIA, hx of PE, GERD, anxiety, and depression presented with respiratory failure and septic shock in the setting of influenza/HCAP and volume overload. She was in hospital from 11/30-12/04 with acute on chronic right sided heart failure and left ankle wound. She was discharged home on Augmentin. She reportedly was not doing well and thought to be unsafe to be home alone by home health, so she was sent to [facility] for rehab. Her mental status was apparently waxing/waning at rehab. She was sent for her normal dialysis treatment and was found to be minimally responsive so she was sent to the ED. In Ed, she was lethargic/ unresponsive and hypotensive. Central line was placed, levophed started. She was found to be positive for Influenza A, CXR showed volume overload and right basilar consolidation. She was given IVF, vanco, zosyn and Tamiflu. Levophed was attempted to be weaned today, but her bp was in 70s and patient did not feel well. She remains in ICU. Was making comments about wanting to stop dialysis and pass away. Palliative care consulted to establish goals of care. Thank you kindly for this consult. Allergies Allergy/AdvReac Type Severity Reaction Status Date / Time Iodinated Contrast- Oral and Allergy Mild "Contrast Verified 12/14/18 12:44 IV Dye Media" -- unknown rxn adhesive Allergy Unknown "Tape" -- Verified 12/14/18 12:44 unknown rxn morphine Allergy Unknown UNKNOWN Verified 12/14/18 12:44 warfarin Allergy Unknown HYPERSENSIT Verified 12/14/18 12:44 IVITY/BLEED ING tomato AdvReac Intermediate GI SYMPTOMS Verified 12/14/18 12:44 Home Medications Home Medications Medication Instructions Recorded Confirmed Type amiodarone 200 mg PO QAM 09/03/18 12/14/18 History atorvastatin 40 mg PO HS 09/03/18 12/14/18 History calcium acetate 667 mg PO DAILY 09/03/18 12/14/18 History clonazepam 0.5 mg PO HS 09/03/18 12/14/18 History gabapentin 200 mg PO AMHS 09/03/18 12/14/18 History levothyroxine 75 mcg PO QAM 09/03/18 12/14/18 History multivitamin 1 tab PO QAM 09/03/18 12/14/18 History nitroglycerin [Nitrostat] 0.4 mg SUBLINGUAL DIRECTED PRN 09/03/18 12/14/18 History sertraline 100 mg PO HS 09/03/18 12/14/18 History acetaminophen 650 mg PO Q6H PRN 11/30/18 12/14/18 History albuterol sulfate [Ventolin HFA] 2 puff INHALATION Q4H PRN 11/30/18 12/14/18 History aspirin 81 mg PO QAM 11/30/18 12/14/18 History clonazepam 0.5 mg PO TUTHSA 11/30/18 12/14/18 History guaifenesin 400 mg PO Q4H PRN 11/30/18 12/14/18 History ondansetron HCl 4 mg PO Q6H PRN 11/30/18 12/14/18 History amoxicillin-pot clavulanate 1 tab PO DAILY #13 tab 12/04/18 12/14/18 Rx bisacodyl [Dulcolax (bisacodyl)] 10 mg NJ DAILY PRN 12/14/18 12/14/18 History citalopram 10 mg PO DAILY 12/14/18 12/14/18 History fentanyl 1 patch TRANSDERMAL Q72H 12/14/18 12/14/18 History fluconazole 100 mg PO DAILY 12/14/18 12/14/18 History hydrocodone-acetaminophen 1 tab PO Q6H PRN 12/14/18 12/14/18 History insulin aspart U-100 [Novolog 10 unit SUBCUT TIDM 12/14/18 12/14/18 History U-100 Insulin aspart] insulin glargine [Lantus Solostar 22 unit SUBCUT HS 12/14/18 12/14/18 History U-100 Insulin] loperamide [Imodium A-D] 2 mg PO TUTHSA 12/14/18 12/14/18 History midodrine 10 mg PO MOWEFR 12/14/18 12/14/18 History midodrine 20 mg PO TUTHSA 12/14/18 12/14/18 History ranitidine HCl 0.5 tab PO DAILY 12/14/18 12/14/18 History sodium phosphates [Fleet Enema] 118 ml [place] DAILY PRN 12/14/18 12/14/18 History Patient History Medical History Anxiety (Chronic) Pulmonary hypertension (Chronic) Severe tricuspid regurgitation (Chronic) Anemia of renal disease (Chronic) Elevated liver enzymes (Chronic) QT prolongation (Chronic) History of fracture of left ankle (Chronic) 08/2018 ORIF trimalleolar fx Hypothyroidism (Chronic) Depression (Chronic) Closed trimalleolar fracture of left ankle (Chronic) Type 2 diabetes mellitus with diabetic neuropathy (Chronic) Acquired claw toe of right foot (Chronic) Acquired claw toe of left foot (Chronic) Diabetic retinopathy (Chronic) Paroxysmal atrial fibrillation (Chronic) TIA (transient ischemic attack) (Chronic) GERD (gastroesophageal reflux disease) (Chronic) Dyslipidemia (Chronic) Pulmonary hypertension (Chronic) Pulmonary embolism (Resolved) DM type 2 (diabetes mellitus, type 2) (Chronic) DVT (deep venous thrombosis) (Resolved) Chronic diastolic CHF (congestive heart failure) (Chronic) Nonischemic cardiomyopathy (Chronic) EVERTON treated with BiPAP (Chronic) Chronic respiratory failure with hypoxia (Chronic) Symptomatic bradycardia (Chronic) Pacemaker (Chronic) Hypertension (Chronic) Spinal stenosis (Chronic) Osteoarthritis (Chronic) Malignant melanoma (Chronic) Thrombocytopenia (Chronic) Left rib fracture (Chronic) 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 Pt has been off coumadin since and not anticoagulation candidate ESRD (end stage renal disease) on dialysis (Chronic) Pressure ulcer (Inactive) Wound needed debridement. After obtaining permission topical Xylocaine was applied. Using # 5 curette fibrin and slough were removed. Minimal bleeding was controlled with pressure. Patient tolerated well with no complications. This represents non-excisional debridement of less than 20 cm�. Wound dressed with Santyl and optifoam to be changed every day. Continue antibiotics. Likely reasonable to change to PO augmentin to finish course of treatment. Follow up in clinic in 1 week. Thank you for allowing me to participate in the care of this patient. Left midfoot ulcer (Inactive) Mitral regurgitation (Inactive) Ulcer of right midfoot (Inactive) Surgical History H/O total hysterectomy (Chronic) S/P cholecystectomy (Chronic) S/P IVC filter (Chronic) AV fistula (Inactive) Pacemaker (Inactive) Family History Father Heart attack Mother Heart attack Social History marital status: Current Living Situation: Group Home Other Information That Helps Us Care for You: No Feels Safe at Home: Yes and No Is there a partner from a previous relationship who is making you feel unsafe now?: No Any Concerns about Your Family Situation : No Would You Like to Speak to Someone About Your Situation: No Safety Concerns: Feels Safe At This Time Smoking Status: Former smoker Tobacco Type: cigarettes Hx Alcohol Use: No Hx Substance Use: No Beliefs That Will Affect Care: None Communication Ability: Effective Review of Systems Constitutional: + weakness Respiratory: + cough; no dyspnea and no sputum production Cardiovascular: + edema; no chest pain Gastrointestinal: no abdominal pain, no nausea and no vomiting Musculoskeletal: + muscle weakness Neurologic: no confusion Psychiatric: + depression and + anxiety Physical Exam 2 Vital Signs (Past 24 Hours): Last Vital Signs Temp 36.6 C 12/17/18 10:32 Pulse 70 12/17/18 12:45 Resp 18 12/17/18 04:00 BP 94/52 L 12/17/18 12:45 Pulse Ox 100 12/17/18 03:00 Constitutional: + ill appearing (chronically) and + obese; no acute distress Eyes: PERRL ENMT: Ears: no hearing impairment Neck: normal visual inspection and trachea midline Respiratory: + cough (moist) Auscultation: + diminished lung sounds, + crackles and + rhonchi Cardiovascular: Rate/Rhythm: regular rate and regular rhythm Vessels: normal peripheral pulses Extremities: + edema Gastrointestinal (Abdomen): normal bowel sounds, soft, nontender, no hepatosplenomegaly Musculoskeletal: Extremities: no cyanosis and no clubbing Skin: no rashes, warm and dry Neurologic: awake; not confused Psychiatric: Orientation: alert and oriented x 3 Affect: + tearful affect Time Spent Midlevel 50 minutes with >50% of time spent at bedside with patient discussing condition and GOC.
[2018-12-17] MEDS: CALCIUM ACETATE 667 MG CAP PO SCH (13:18)
[2018-12-17] MEDS: NOREPINEPHRINE BIT INJ 8 MG in DEXTROSE 5% 500 ML IV SCH (15:07)
--- NOTE | 2018-12-17 18:23 | Hospitalist Progress Note ---
Date of Service December 17, 2018 Subjective Patient remains on norepinephrine (levophed) in the ICU Patient awake and alert. answering questions appropriately patient denies abdominal pain. denies vomiting. denies chest pain or palpitations or headache or lightheadedness Patient is anuric Physical Exam 2 Vital Signs (Past 24 Hours): Last Vital Signs Temp 36.7 C 12/17/18 13:35 Pulse 70 12/17/18 14:31 Resp 19 12/17/18 14:31 BP 90/58 L 12/17/18 14:31 Pulse Ox 96 12/17/18 14:31 Physical Exam: ENMT: external ear and nose normal, oropharynx normal Respiratory: normal respiratory effort, lungs clear to auscultation Cardiovascular: Rate/Rhythm: regular rate and regular rhythm Vessels: normal peripheral pulses Gastrointestinal (Abdomen): normal bowel sounds, soft, nontender, no hepatosplenomegaly Musculoskeletal: Extremities: Pressure ulcers of left ankle, unstageable Point of Arrival) Neurologic: PERRL, EOMI, accommodation nl, no face palsy, no dysarthria Psychiatric: A+Ox3, euthymic affect
[2018-12-17] MEDS: SERTRALINE HCL 100 MG TABLET PO SCH (20:29)
[2018-12-17] MEDS: OSELTAMIVIR PHOSPHATE SUSP 30 MG/5 ML UDP PO SCH (20:42)
[2018-12-17] MEDS ORDERED: ONDANSETRON 2 MG OD TAB PO STA (21:20)
[2018-12-18 04:25] LABS: Mean Corpuscular Hgb Conc 31.9 g/dL (32-36)
[2018-12-18 04:31] LABS: Hematocrit (blood only) 30.7 % (37-47); Hemoglobin 9.8 g/dL (12.0-16.0); Mean Corpuscular Volume 98.1 fL (80-100); RDW Coefficient of Variation 19.5 % (11.5-14.5); Red Blood Count 3.13 M/uL (4.2-5.4); White Blood Count 4.59 K/uL (4.8-10.8)
[2018-12-18 04:47] LABS: BUN Creatinine Ratio 5.4 (10-20); Calcium 7.7 mg/dl (8.5-10.1); Creatinine Clr Calc Pharmacy 11.5 ml/min; Est GFR (African American) 12.2; Est GFR (Non-African American) 10.5; Magnesium 1.9 mg/dl (1.8-2.4); Phosphorus 4.4 mg/dl (2.5-4.9); Potassium 3.8 mmol/L (3.5-5.1)
[2018-12-18 04:50] LABS: Platelet Count 54 K/uL (130-400)
[2018-12-18 04:58] LABS: Anisocytosis Present; Basophils # (auto) 0.01 K/uL (0-0.2); Basophils % (auto) 0.2 %; Eosinophils # (auto) 0.14 K/uL (0-0.5); Eosinophils % (auto) 3.1 %; Immature Granulocytes # (auto) 0.01 K/uL (0.00-0.02); Immature Granulocytes % (auto) 0.2 %; Lymphocytes # (auto) 1.03 K/uL (1.2-3.4); Lymphocytes % (auto) 22.4 %; Monocytes # (auto) 0.46 K/uL (0.11-0.59); Neutrophils # (auto) 2.94 K/uL (1.4-6.5); Neutrophils % (auto) 64.1 %
[2018-12-18] MEDS: LEVOTHYROXINE SODIUM 75 MCG TABLET PO SCH (05:24)
[2018-12-18] MEDS: ACETAMINOPHEN 500 MG TAB PO PRN (06:21)
--- NOTE | 2018-12-18 08:00 | Critical Care Progress Note ---
Date of Service December 18, 2018 Assessment & Plan (1) Anxiety: (2) Influenza A: (3) HCAP (healthcare-associated pneumonia): 73yoF with hx of ESRD, DM2, pAF, symptomatic bradycardia with pacemaker, EVERTON with bipap use, hx of TIA, hx of PE, GERD, anxiety, and depression presented with respiratory failure and septic shock in the setting of influenza/ HCAP and volume overload. Now HD stable off levophed and sating well on 1L NC. NEURO: CAM ICU: negative Pain Rx: Dilaudid 0.5mg IV x 1, Tylenol 500mg Q6H PRN Continue gabapentin and zoloft CARDIAC/VASCULAR: Septic shock in the setting of HCAP and influenza - improved. Baseline hypotension in the setting of ESRD Non-ischemic cardiomyopathy - mild elevation of troponin secondary to demand ischemia in combination with underlying renal disease; Acute on chronic R sided heart failure Troponins stabilized 0.47, 0.45, 0.48 EKG: AV dual paced rhythm 72, QTc 501 CXR: mild pulm vascular congestion, stable cardiomegaly HD stable off Levophed Continue midodrine, amiodarone, apsirin PULM: EVERTON on Bipap (pt semi-complaint) On NC 1L CXR: Cardiomegaly and persistent pulmonary vascular congestion Continue home bipap at night GI: On Zantac and probiotic HH and DM2 diet : No arnold, anuric RENAL/LYTES: ESRD with volume overload - improving Na 133 BUN/Cr 21/3.93 Renal following, HD yesterday On Phoslo Continue to monitor BMP ENDO: DM2 - on lantus and Novolog Hypothyroidism - on levothyroxine 75mg daily HEME: H/H stable Monitor CBC ID: HCAP and influenza Influenza A positive BCx 2 NGTD Lactate this AM 1.4 Received zosyn x 3 days - deced On Tamiflu LINES: Triple lumen femoral cath and PIVx 1 L upper arm dialysis fistula DVT prop: Heparin 5000 SQ Q12H Code: DNR Dispo: To med tele (4) Hypothyroidism: (5) Depression: (6) Paroxysmal atrial fibrillation: (7) GERD (gastroesophageal reflux disease): (8) DM type 2 (diabetes mellitus, type 2): (9) Chronic diastolic CHF (congestive heart failure): (10) EVERTON treated with BiPAP: (11) Pacemaker: (12) Hypertension: (13) ESRD (end stage renal disease) on dialysis: Supervising Physician Co-Signing Physician Notes Dr. Murray was resident physician during care of patient. I separately evaluated patient for langford portions of the history and the exam. I was present during the critical portion of medical decision making, and I discussed the case with the resident. I generally agree with the findings and plan. Patient was discussed in multidisciplinary rounds. Patient has been weaned off vasoactive's, her femoral line has been removed. Patient has been semi- compliant with her BiPAP. Patient refused SCDs, she remains on prophylaxis. She appears to be at her baseline. She is off antibiotics and is stable for downgrade out of the ICU. Subjective ON: pt had trouble keeping bipap mask on and eventually took it off. She also removed SCDs. She had a nosebleed as well. This AM pt sating well on 1L NC. HD stable off levophed. Femoral cath removed. Pt likely chronically hypotensive in the setting of ESRD. Reports leg pain this AM. Denies any f/c, QUEEN/dizziness, cp, sob, abdominal pain, n/v, constipation, dysuria. Physical Exam 2 Vital Signs (Past 24 Hours): Last Vital Signs Temp 36.7 C 12/18/18 07:01 Pulse 71 12/18/18 07:01 Resp 17 12/18/18 07:01 BP 83/58 L 12/18/18 07:01 Pulse Ox 92 12/18/18 07:01 Physical Exam: General: In NAD CV: RRR, no m/r/g, L upper arm dialysis fistula has good thrill and bruit Pulm: diffuse rhonchi, coarse but equal breath sounds bilaterally, no wheezing or crackles appreciated Abdomen: +BS, non-distended, nontender to palpation in all quadrants LE: no calf tenderness or LE edema bilaterally Results & Data Laboratory Results Abnormal lab results 12/16/18 12/17/18 12/17/18 Range/Units 20:16 00:23 04:10 WBC (4.8-10.8) K/uL RBC (4.2-5.4) M/uL Hgb (12.0-16.0) g/dL Hct (37-47) % MCHC (32-36) g/dL RDW Std Deviation (36.4-46.3) fL RDW Coeff of Anatoly (11.5-14.5) % Plt Count (130-400) K/uL Lymph # (Auto) (1.2-3.4) K/uL Sodium (136-145) mmol/L BUN (7-18) mg/dl Creatinine (0.6-1.2) mg/dl BUN/Creatinine Ratio (10-20) POC Glucose (70-99) POC Glucose (other) 199 H 156 H 112 H (70-99) mg/dl Calcium (8.5-10.1) mg/dl 12/17/18 12/17/18 12/18/18 Range/Units 18:12 20:34 04:17 WBC 4.59 L (4.8-10.8) K/uL RBC 3.13 L (4.2-5.4) M/uL Hgb 9.8 L (12.0-16.0) g/dL Hct 30.7 L (37-47) % MCHC 31.9 L (32-36) g/dL RDW Std Deviation 70.0 H (36.4-46.3) fL RDW Coeff of Anatoly 19.5 H (11.5-14.5) % Plt Count 54 L (130-400) K/uL Lymph # (Auto) 1.03 L (1.2-3.4) K/uL Sodium (136-145) mmol/L BUN (7-18) mg/dl Creatinine (0.6-1.2) mg/dl BUN/Creatinine Ratio (10-20) POC Glucose 155 H 147 H (70-99) POC Glucose (other) (70-99) mg/dl Calcium (8.5-10.1) mg/dl 12/18/18 Range/Units 04:17 WBC (4.8-10.8) K/uL RBC (4.2-5.4) M/uL Hgb (12.0-16.0) g/dL Hct (37-47) % MCHC (32-36) g/dL RDW Std Deviation (36.4-46.3) fL RDW Coeff of Anatoly (11.5-14.5) % Plt Count (130-400) K/uL Lymph # (Auto) (1.2-3.4) K/uL Sodium 133 L (136-145) mmol/L BUN 21 H (7-18) mg/dl Creatinine 3.93 H D (0.6-1.2) mg/dl BUN/Creatinine Ratio 5.4 L (10-20) POC Glucose (70-99) POC Glucose (other) (70-99) mg/dl Calcium 7.7 L (8.5-10.1) mg/dl Medications Administered Current Inpatient Medications Acetaminophen (Tylenol) 500 mg PO Q6H PRN PRN Reason: Pain or Fever Stop: 01/15/19 06:52 Last Admin: 12/18/18 06:21 Dose: 500 mg Amiodarone HCl (Cordarone) 200 mg PO QAM [facility] Stop: 01/14/19 08:59 Last Admin: 12/18/18 08:12 Dose: 200 mg Aspirin (Ecotrin Ectab) 81 mg PO QAM [facility] Stop: 01/14/19 08:59 Last Admin: 12/18/18 08:13 Dose: 81 mg Calcium Acetate (Phoslo) 667 mg PO QDL [facility] Stop: 01/14/19 11:29 Last Admin: 12/17/18 13:18 Dose: 667 mg Gabapentin (Neurontin) 200 mg PO AMHS [facility] Stop: 01/13/19 20:59 Last Admin: 12/18/18 08:14 Dose: 200 mg Heparin Sodium (Beef Lung) (Heparin Sod 10 Unit/Ml Flush) 5 ml FLUSH PRN PRN PRN Reason: Flush Stop: 01/14/19 01:03 Heparin Sodium (Porcine) (Heparin Sodium (Porcine)) 5,000 units SQ Q12H [facility] Stop: 01/14/19 07:59 Last Admin: 12/18/18 08:14 Dose: 5,000 units Insulin Aspart (Novolog Flexpen) 0 units SC ACHS [facility] Stop: 01/16/19 16:29 Last Admin: 12/18/18 08:16 Dose: Not Given Insulin Glargine (Lantus Solostar Pen) 0 units SC BID [facility]; Protocol Stop: 01/15/19 20:59 Last Admin: 12/18/18 08:14 Dose: 5 units Lactobacillus Acidophilus (Floranex Granules/Powder Packet) 1 gm PO TIDM [facility] Stop: 01/15/19 07:59 Last Admin: 12/18/18 08:13 Dose: 1 gm Levothyroxine Sodium (Synthroid) 75 mcg PO DAILYBB [facility] Stop: 01/14/19 06:29 Last Admin: 12/18/18 05:24 Dose: 75 mcg Midodrine (Proamatine) 10 mg PO MoWeFr@0900 [facility] Stop: 01/15/19 08:59 Midodrine (Proamatine) 20 mg PO TuThSa@0900 [facility] Stop: 01/16/19 08:59 Midodrine (Proamatine) 10 mg PO TID@0800,1200,1700 [facility] Stop: 01/15/19 14:59 Last Admin: 12/18/18 08:13 Dose: 10 mg Miscellaneous Information (Consult Glycemic Management Pharmacy) 1 ea N/A UD PRN PRN Reason: Consult Stop: 01/13/19 19:01 Multivitamins (Multivitamin Tab) 1 tab PO QAM [facility] Stop: 01/14/19 08:59 Last Admin: 12/18/18 08:13 Dose: 1 tab Oseltamivir Phosphate (Tamiflu) 30 mg PO TuThSa@2200 [facility]; Protocol Stop: 12/19/18 21:59 Last Admin: 12/17/18 20:42 Dose: 30 mg Ranitidine HCl (Zantac) 37.5 mg PO DAILY [facility] Stop: 01/14/19 08:59 Last Admin: 12/18/18 08:13 Dose: 37.5 mg Sertraline HCl (Zoloft) 100 mg PO HS [facility] Stop: 01/13/19 20:59 Last Admin: 12/17/18 20:29 Dose: 100 mg Resident Activity Tracking Resident Involvement: Resident Care Provided Care Provided: [facility] Medicine _ (1) Hypothyroidism Hypothyroidism type: unspecified Qualified Code(s): E03.9 - Hypothyroidism, unspecified (2) GERD (gastroesophageal reflux disease) Esophagitis presence: without esophagitis Qualified Code(s): K21.9 - Gastro- esophageal reflux disease without esophagitis
[2018-12-18] MEDS: AMIODARONE 200 MG TAB PO SCH (08:12)
[2018-12-18] MEDS: MIDODRINE HCL 10 MG TAB PO SCH ×3 (08:13→17:47)
[2018-12-18] MEDS: LACTOBACILLUS ACIDOPHILUS 1 GM PACK PO SCH ×3 (08:13→17:47)
[2018-12-18] MEDS: MULTIVITAMIN TAB PO SCH (08:13)
[2018-12-18] MEDS: RANITIDINE HCL SYRUP 150 MG/10 ML UDC PO SCH (08:13)
[2018-12-18] MEDS: ASPIRIN 81 MG ECTAB PO SCH (08:13)
[2018-12-18] MEDS: HEPARIN SOD 5,000 UNIT/0.5 ML VIAL SQ SCH ×2 (08:14→22:07)
[2018-12-18] MEDS: GABAPENTIN 100 MG CAP PO SCH ×2 (08:14→22:10)
[2018-12-18] MEDS: INSULIN GLARGINE SOLOSTAR 100 UNITS/ML 3 ML PEN SC SCH ×2 (08:14→22:09)
[2018-12-18] MEDS: INSULIN ASPART 100 UNITS/ML 3 ML PEN SC SCH ×4 (08:16→22:10)
[2018-12-18] MEDS ORDERED: LOPERAMIDE HCL 2 MG CAP PO STA (09:30)
[2018-12-18] MEDS ORDERED: LOPERAMIDE HCL 2 MG CAP PO PRN (09:33)
[2018-12-18] MEDS: TRAMADOL HCL 50 MG TABLET PO PRN (09:56)
[2018-12-18] MEDS: CALCIUM ACETATE 667 MG CAP PO SCH (11:50)
--- NOTE | 2018-12-18 13:07 | Pharmacy Report ---
Pharmacy Glycemic Short Note 2 - Date of Service December 18, 2018 - Glycemic Short BSG Results (Last 24 hours): 12/16/18 12/17/18 12/17/18 20:16 00:23 04:10 Glucose POC Glucose POC Glucose (other) 199 H 156 H 112 H 12/17/18 12/17/18 12/18/18 18:12 20:34 04:17 Glucose 95 POC Glucose 155 H 147 H POC Glucose (other) 12/18/18 12/18/18 07:40 11:44 Glucose POC Glucose 94 140 H POC Glucose (other) OUTPATIENT ANTIDIABETIC REGIMEN (PER CURRENT MED REC): * Lantus 22 units HS * Novolog 10 units w/ each meal * A1c = 6.7% 12/01/18 however result should be interpreted w/ caution given ESRD ; pt specific trends and BSG log more appropriate to evaluate control CURRENT REGIMEN: * Lantus 5/8 units SQ BID * Novolog Q 4 hrs * Goal Range: 120-160mg/dL * Correction Factor: 25mg/dL * Carb Ratio: 12 ASSESSMENT: 12/18 * Patient received 15 units of insulin yesterday, 10 units basal, 5 units prandial * Patient's norepinephrine titrated off and transferred out of icu, dialysis scheduled [facility] * Fasting BSG trending down will reduce scale for this evening * Prandial BSGs within goal range 12/16 * Patient with hyperglycemic episode last evening (addition of a diet likely contributing), necessitating additional dose of lantus. BSGs much improved today. 5 units of lantus was ordered this morning and a lantus scale will be ordered for this evening. Will continue with q4 hour novolog at this time as previously mentioned stressors remaIn. 12/15 * Type 2 diabetic from [facility] admitted yesterday for mental status changes, hypotension, fluid overload and reported new infiltrate on CXR * She is managed w/ basal bolus regimen at [facility] and will continue the same here * She is familiar to the glycemic control service from prior admissions. Will use prior admission data to initiate insulin regimen here * Given current stressors: [place] infusion, possible infxn - will change BSG frequency to Q 4 hrs and cover w/ Novolog. Will split Lantus dose BID for ease of titration * She remains NPO this AM, BSGs are at goal thus far - will continue with relatively low doses of Lantus for time being while relying of Q 4 hr correction should basal dose be inadequate PLAN FOR INPATIENT GLYCEMIC CONTROL: * Basal insulin * Lantus 5 units SQ this AM * Lantus 3 or 5 units based on BSG this evening * Bolus insulin * NovoLog per scale Q 4 hrs * Goal Range: Low 120 mg/dL - High 160 mg/dL * Correction Factor: 25 mg/dL/unit * Nutritional / Prandial insulin per carb ratio of 1 unit per 12 grams CHO consumed PLAN FOR DISCHARGE: * to be determined
--- NOTE | 2018-12-18 14:27 | Hospitalist Progress Note ---
Date of Service December 18, 2018 Assessment & Plan (1) HCAP (healthcare-associated pneumonia): Volume overload Currently off Abx:: started on Vancomycin and Zosyn on 12/15/18 Volume status managed with dialysis Blood Culure: No growth to date Appreciate ICU team help Off preOxygen support as needed (2) Influenza A: continue Tamiflu Diarrhea Likely 12/07 Influenza Monitor (3) Shock: Patient was sent from outpatient dialysis for evaluation of altered mental status Off pressors Continue midrodrine (4) Nonischemic cardiomyopathy: Elevated Troponin likely secondary to demand ischemia EKG demonstrates paced rhythm Patient denies chest pain Continue dialysis as per Nephrology (5) Acute on chronic right-sided congestive heart failure: Volume status managed with dialysis (6) ESRD (end stage renal disease) on dialysis: On dialysis Sunday/ / Sunday Appreciate Nephrology help (7) Elevated troponin: Elevated Troponin likely secondary to demand ischemia monitor (8) Elevated liver enzymes: Recent CT ABD suggestive of mild cirrhotic liver disease Transminitis on this admission likely due to volume congestion Needs FU as outpatient (9) DM type 2 (diabetes mellitus, type 2): Last Hgb A1c 6.7 11/2018 Pharmacy consult for glycemic management Continue Novolog, Lantus (10) Paroxysmal atrial fibrillation: Rate controlled Conitnue amiodarone Not on anticoagulation Re: H/O hemorrhagic pericarditis and tamponade (11) QT prolongation: Avoid QTC prolonging agents Monitor with EKG (12) Wound of left ankle: Completed Abx course Wound Care (13) Hypothyroidism: Continue levothyroxine (14) Symptomatic bradycardia: Monitor (15) Pacemaker: No acute issues (16) Anxiety: (17) Depression: hold clonazepam hold citalopram (was being transitioned to sertraline alone) continue sertraline (18) TIA (transient ischemic attack): Continue aspirin Resume statin as able (19) GERD (gastroesophageal reflux disease): Continue Ranitidine (20) Pulmonary embolism: as per history Not on long-term anticoagulation candidate due to H/O hemorrhagic pericarditis/ tamponade (21) DVT (deep venous thrombosis): as per history Not on long-term anticoagulation candidate due to H/O hemorrhagic pericarditis/ tamponade (22) S/P IVC filter: History of IVC filter (23) EVERTON treated with BiPAP: Non complaint Continue BiPAP QHS (24) DVT prophylaxis: Heparin SQ Code Status: DNR Disposition: PT/OT prior to discharge Subjective Patient is seen and examined at bedside Off pressors Complains of chronic ankle pain Has cough Denies chest pain, dyspnea, dizziness, abd pain Physical Exam 2 Vital Signs (Past 24 Hours): Last Vital Signs Temp 36.3 C L 12/18/18 11:25 Pulse 70 12/18/18 11:25 Resp 20 12/18/18 11:25 BP 106/66 12/18/18 11:25 Pulse Ox 100 12/18/18 11:25 Physical Exam: Physical Exam: Vitals signs as noted above General Appearance:Moderately built and nourished, no apparent distress Head: normocephalic, Atraumatic Eyes: normal inspection, EOMI Neck: supple, Trachea midline Respiratory/Chest: Coarse breath sounds, B/L crackles Cardiovascular: S1, S2, + murmur Abdomen/GI:Soft, Non tender, Bowel sounds present Extremities/Musculoskelatal:normal inspection, + B/L LE edema Neurologic/Psych:AAOX3, grossly no focal neurological deficits Skin: normal color, warm Results & Data Laboratory Results Short CBC 12/18/18 Range/Units 04:17 WBC 4.59 L (4.8-10.8) K/uL Hgb 9.8 L (12.0-16.0) g/dL Hct 30.7 L (37-47) % Plt Count 54 L (130-400) K/uL BMP 12/18/18 04:17 Sodium 133 L Potassium 3.8 Chloride 98 Carbon Dioxide 30 BUN 21 H Creatinine 3.93 H D Glucose 95 Calcium 7.7 L _ (1) Hypothyroidism Hypothyroidism type: unspecified Qualified Code(s): E03.9 - Hypothyroidism, unspecified (2) Pulmonary embolism Acute cor pulmonale presence: without acute cor pulmonale Chronicity: unspecified Pulmonary embolism type: unspecified Qualified Code(s): I26.99 - Other pulmonary embolism without acute cor pulmonale (3) GERD (gastroesophageal reflux disease) Esophagitis presence: without esophagitis Qualified Code(s): K21.9 - Gastro- esophageal reflux disease without esophagitis
--- NOTE | 2018-12-18 15:01 | XRay Report ---
XR chest 1V portable HISTORY: Short of breath. pulmonary vascular congestion COMPARISON: Chest 12/17/2018. FINDINGS: No pneumothorax. The heart remains enlarged. Improvement in the pulmonary vascular congesti on. Right dual-lumen pacemaker is again noted. No pleural effusions. IMPRESSION: Improvement in the pulmonary vascular congestion. Electronically signed by: Rik Vora M.D. 12/18/2018 2:59 PM
--- NOTE | 2018-12-18 16:29 | Nephrology Progress Note ---
Date of Service December 18, 2018 Assessment & Plan (1) ESRD (end stage renal disease) on dialysis: Patient with ESRD on dialysis Sunday. She was admitted with acute respiratory distress and shock. Patient had initially refused dialysis yesterday due to extreme fatigue. She mentioned that she had been on dialysis for 10 years and was considering stopping dialysis. I informed patient that if she stopped dialysis she could possibly in days to weeks. I offered a palliative care consult. Patient informed me that she was not ready to and had a lot of things to look forward to. She tolerated dialysis well yesterday. Next dialysis will be tomorrow for 3-1/2 hours, to get UF 2.5 L. (2) Sepsis: Patient with sepsis due to influenza pneumonia. She is receiving Tamiflu. She is also being covered with Zosyn. She is off Levophed. Continue midodrine 10mg po tid. (3) Fluid overload: Patient with volume overload. Chest x-ray showing pulmonary vascular congestion. We will continue fluid removal with dialysis. Oxygenation is stable. (4) Anemia of renal disease: Hemoglobin of 10.3 which is at target. No need for JULIOCESAR. Subjective ESRD patient seen in follow up for volume overload and septic shock. She reports no SOB. She tolerated dialysis well yesterday with net UF of 2 L. She complains of pain in the lower extremities. Constitutional: + weakness Eyes: no problem reported Respiratory: no cough and no dyspnea Cardiovascular: + dyspnea on exertion; no dyspnea at rest Gastrointestinal: + constipation Neurologic: no confusion Physical Exam 2 Vital Signs (Past 24 Hours): Last Vital Signs Temp 36.3 C L 12/18/18 15:05 Pulse 70 12/18/18 15:15 Resp 20 12/18/18 15:05 BP 108/62 12/18/18 15:05 Pulse Ox 93 12/18/18 15:05 Physical Exam: General exam: Appears comfortable, no acute distress HEENT: Pupils are equal and reactive to light Neck: No JVD, neck is supple trachea is midline Respiratory system: Clear breath sounds bilaterally. Gastrointestinal: Abdomen is soft, non distended, non tender, bowel sounds are present CVS: Regular rate and rhythm. No murmurs, rubs or gallops Musculoskeletal: No joint or muscle tenderness Extremities: Non tender, no edema, peripheral pulses are present Neuro: Oriented, no tremors, no focal neurological deficits Skin: No rashes Access: left AVF _ (1) Sepsis Sepsis type: sepsis due to unspecified organism Qualified Code(s): A41.9 - Sepsis, unspecified organism
[2018-12-18] MEDS: SERTRALINE HCL 100 MG TABLET PO SCH (22:22)
[2018-12-19] MEDS: PROMETHAZINE HCL 6.25 MG in SODIUM CHLORIDE 0.9% 50 ML IV PRN ×2 (02:32→09:35)
[2018-12-19] MEDS: TRAMADOL HCL 50 MG TABLET PO PRN ×2 (03:05→10:07)
[2018-12-19] MEDS ORDERED: TRAMADOL HCL 50 MG TABLET PO STA (05:06)
[2018-12-19] MEDS: LEVOTHYROXINE SODIUM 75 MCG TABLET PO SCH (05:16)
[2018-12-19] MEDS: MIDODRINE HCL 10 MG TAB PO SCH ×3 (07:51→17:38)
[2018-12-19] MEDS: ASPIRIN 81 MG ECTAB PO SCH (07:51)
[2018-12-19] MEDS: GABAPENTIN 100 MG CAP PO SCH ×2 (07:52→20:18)
[2018-12-19] MEDS: MULTIVITAMIN TAB PO SCH (07:52)
[2018-12-19] MEDS: RANITIDINE HCL SYRUP 150 MG/10 ML UDC PO SCH (07:52)
[2018-12-19] MEDS: AMIODARONE 200 MG TAB PO SCH (07:52)
[2018-12-19] MEDS: HEPARIN SOD 5,000 UNIT/0.5 ML VIAL SQ SCH ×2 (07:53→20:19)
[2018-12-19] MEDS: LACTOBACILLUS ACIDOPHILUS 1 GM PACK PO SCH ×3 (07:57→17:38)
[2018-12-19] MEDS: INSULIN ASPART 100 UNITS/ML 3 ML PEN SC SCH ×4 (07:58→20:18)
[2018-12-19 08:12] LABS: Mean Corpuscular Hgb Conc 31.8 g/dL (32-36)
[2018-12-19] MEDS ORDERED: SODIUM CHLORIDE 0.9% 1000ML 1,000 ML IV PRN (08:16)
[2018-12-19 08:31] LABS: Hematocrit (blood only) 34.3 % (37-47); Hemoglobin 10.9 g/dL (12.0-16.0); Mean Corpuscular Volume 98.8 fL (80-100); RDW Coefficient of Variation 19.1 % (11.5-14.5); RDW Standard Deviation 69.1 fL (36.4-46.3); Red Blood Count 3.47 M/uL (4.2-5.4); White Blood Count 6.49 K/uL (4.8-10.8)
[2018-12-19 08:40] LABS: Platelet Count 77 K/uL (130-400)
[2018-12-19 09:08] LABS: BUN Creatinine Ratio 5.9 (10-20); Creatinine Clr Calc Pharmacy 8.8 ml/min; Est GFR (African American) 8.9; Est GFR (Non-African American) 7.7; Potassium 4.1 mmol/L (3.5-5.1)
[2018-12-19] MEDS ORDERED: HYDROmorphone INJ 0.5 MG/0.5 ML SYR IV STA (10:48)
[2018-12-19] MEDS ORDERED: GLUCOSE 40% GEL 15 GM TUBE PO PRN (11:00)
[2018-12-19] MEDS ORDERED: CARBOHYDRATES FOR HYPOGLYCEMIA PO PRN (11:00)
[2018-12-19] MEDS ORDERED: GLUCOSE 10 TABS/TUBE PO PRN (11:00)
[2018-12-19] MEDS ORDERED: DEXTROSE 50% 50 ML SYRINGE IV PRN (11:00)
[2018-12-19] MEDS ORDERED: GLUCAGON FOR INJ 1 MG VIAL IM PRN (11:00)
--- NOTE | 2018-12-19 11:55 | Pharmacy Report ---
Pharmacy Glycemic Short Note 2 - Date of Service December 19, 2018 - Glycemic Short BSG Results (Last 24 hours): 12/17/18 12/18/18 12/18/18 12:11 16:21 20:24 Glucose POC Glucose 139 H 111 H POC Glucose (other) 109 H 12/19/18 12/19/18 12/19/18 07:35 07:37 07:53 Glucose 67 L POC Glucose 65 L* 70 POC Glucose (other) 12/19/18 11:38 Glucose POC Glucose 122 H POC Glucose (other) OUTPATIENT ANTIDIABETIC REGIMEN (PER CURRENT MED REC): * Lantus 22 units HS * Novolog 10 units w/ each meal * A1c = 6.7% 12/01/18 however result should be interpreted w/ caution given ESRD ; pt specific trends and BSG log more appropriate to evaluate control CURRENT REGIMEN: * Lantus 8 units on 12/18 * Novolog ACHS * Goal Range: 120-160mg/dL * Correction Factor: 25 mg/dL * Carb Ratio: 12 ASSESSMENT: 12/19 * Ms. Branch received only 13 units of insulin yesterday, with 8 of this being basal * PO intake remains pretty minimal. She is scheduled to receive dialysis today. * Fasting BSG = 65 mg/dL; will change Lantus to qHS dosing since dose is so minimal and reduce dose as well * Postprandial BSGs are acceptable but current Novolog parameters are fairly aggressive for current basal requirements 12/18 * Patient received 15 units of insulin yesterday, 10 units basal, 5 units prandial * Patient's norepinephrine titrated off and transferred out of icu, dialysis scheduled [facility] * Fasting BSG trending down will reduce scale for this evening * Prandial BSGs within goal range 12/16 * Patient with hyperglycemic episode last evening (addition of a diet likely contributing), necessitating additional dose of lantus. BSGs much improved today. 5 units of lantus was ordered this morning and a lantus scale will be ordered for this evening. Will continue with q4 hour novolog at this time as previously mentioned stressors remaIn. 12/15 * Type 2 diabetic from [facility] admitted yesterday for mental status changes, hypotension, fluid overload and reported new infiltrate on CXR * She is managed w/ basal bolus regimen at [facility] and will continue the same here * She is familiar to the glycemic control service from prior admissions. Will use prior admission data to initiate insulin regimen here * Given current stressors: [place] infusion, possible infxn - will change BSG frequency to Q 4 hrs and cover w/ Novolog. Will split Lantus dose BID for ease of titration * She remains NPO this AM, BSGs are at goal thus far - will continue with relatively low doses of Lantus for time being while relying of Q 4 hr correction should basal dose be inadequate PLAN FOR INPATIENT GLYCEMIC CONTROL: * Basal insulin - decrease and change to just once daily dosing * Lantus qHS per the following scale: * Hold for BSG < 120 * 5 units for BSG 120 or above * Bolus insulin - loosen parameters * NovoLog per scale ACHS * Goal Range: Low 120 mg/dL - High 160 mg/dL * Correction Factor: 35 mg/dL/unit * Nutritional / Prandial insulin per carb ratio of 1 unit per 15 grams CHO consumed
[2018-12-19] MEDS: CALCIUM ACETATE 667 MG CAP PO SCH (12:40)
--- NOTE | 2018-12-19 18:20 | Nephrology Progress Note ---
Date of Service December 19, 2018 Assessment & Plan (1) ESRD (end stage renal disease) on dialysis: Patient with ESRD on dialysis Sunday. She was admitted with acute respiratory distress and shock. Patient was seen on dialysis. HD terminated after 2hrs due excessive pain in the legs. UF 700ml. Next HD will be Sunday (2) Sepsis: Patient with sepsis due to influenza pneumonia. She is receiving Tamiflu. She is also being covered with Zosyn. Continue midodrine 10mg po tid. (3) Fluid overload: Patient with volume overload. Chest x-ray showing pulmonary vascular congestion. We will continue fluid removal with dialysis. Oxygenation is stable. (4) Anemia of renal disease: Hemoglobin of 10.9 which is at target. No need for JULIOCESAR. Subjective ESRD patient seen in follow up for volume overload and septic shock. She was seen and examined on dialysis today. She complains of pain in the lower extremities. Dialysis terminated after 2hrs due to worsening pain in the legs and not settling down. Constitutional: + weakness Cardiovascular: + dyspnea on exertion; no dyspnea at rest Gastrointestinal: + constipation Physical Exam 2 Vital Signs (Past 24 Hours): Last Vital Signs Temp 36.8 C 12/19/18 14:56 Pulse 70 12/19/18 14:56 Resp 18 12/19/18 14:56 BP 83/49 L 12/19/18 14:56 Pulse Ox 94 12/19/18 16:03 Physical Exam: General exam: Appears comfortable, no acute distress HEENT: Pupils are equal and reactive to light Neck: No JVD, neck is supple trachea is midline Respiratory system: Clear breath sounds bilaterally. Gastrointestinal: Abdomen is soft, non distended, non tender, bowel sounds are present CVS: Regular rate and rhythm. No murmurs, rubs or gallops Musculoskeletal: No joint or muscle tenderness Extremities: Non tender, no edema, peripheral pulses are present Neuro: Oriented, no tremors, no focal neurological deficits Skin: No rashes Access: left UA AVF Results & Data Laboratory Results Hb 10.9 _ (1) Sepsis Sepsis type: sepsis due to unspecified organism Qualified Code(s): A41.9 - Sepsis, unspecified organism
--- NOTE | 2018-12-19 19:23 | Hospitalist Progress Note ---
Date of Service December 19, 2018 Assessment & Plan (1) HCAP (healthcare-associated pneumonia): Volume overload Currently off Abx:: started on Vancomycin and Zosyn on 12/15/18 Volume status managed with dialysis Blood Culture: No growth to date Appreciate ICU/Nephrology help Oxygen support as needed (2) Influenza A: To complete Tamiflu Course Diarrhea Likely 2/2 Influenza Monitor (3) Shock: Patient was sent from outpatient dialysis for evaluation of altered mental status Off pressors Continue midrodrine Plan to Hold Amiodarone on days of Dialysis: Discussed with Cardiology --agreed with the plan (4) Nonischemic cardiomyopathy: Elevated Troponin likely secondary to demand ischemia EKG demonstrates paced rhythm Patient denies chest pain Continue dialysis as per Nephrology (5) Acute on chronic right-sided congestive heart failure: Volume status managed with dialysis (6) ESRD (end stage renal disease) on dialysis: On dialysis Sunday/ / Sunday Appreciate Nephrology help (7) Elevated troponin: Elevated Troponin likely secondary to demand ischemia monitor (8) Elevated liver enzymes: Recent CT ABD suggestive of mild cirrhotic liver disease Transminitis on this admission likely due to volume congestion Needs FU as outpatient (9) DM type 2 (diabetes mellitus, type 2): Last Hgb A1c 6.7 11/2018 Pharmacy consult for glycemic management Continue Shakira Quiroz (10) Paroxysmal atrial fibrillation: Rate controlled On amiodarone Not on anticoagulation Re: H/O hemorrhagic pericarditis and tamponade Plan to hold Amiodarone during days of Dialysis 2/2 significant Hypotension Discussed with Cardiology (11) QT prolongation: Avoid QTC prolonging agents Monitor with EKG (12) Wound of left ankle: Completed Abx course Wound Care (13) Hypothyroidism: Continue levothyroxine (14) Symptomatic bradycardia: Monitor (15) Pacemaker: No acute issues (16) Anxiety: (17) Depression: hold clonazepam--Plan to discontinue as able DC citalopram (was being transitioned to sertraline alone) continue sertraline (18) TIA (transient ischemic attack): Continue aspirin Resume statin as able (19) GERD (gastroesophageal reflux disease): Continue Ranitidine (20) Pulmonary embolism: as per history Not on long-term anticoagulation candidate due to H/O hemorrhagic pericarditis/ tamponade (21) DVT (deep venous thrombosis): as per history Not on long-term anticoagulation candidate due to H/O hemorrhagic pericarditis/ tamponade (22) S/P IVC filter: History of IVC filter (23) [place] treated with BiPAP: Non complaint Continue BiPAP QHS (24) DVT prophylaxis: Heparin SQ Code Status: DNR Disposition: PT/OT prior to discharge Subjective Patient is seen and examined at bedside Had Dialysis earlier today Complained for severe leg pain while getting dialysis Has chronic ankle pain Denies chest pain, dyspnea, dizziness, abd pain No family at bedside Physical Exam 2 Vital Signs (Past 24 Hours): Last Vital Signs Temp 36.8 C 12/19/18 19:09 Pulse 70 12/19/18 19:09 Resp 20 12/19/18 19:09 BP 93/58 L 12/19/18 19:09 Pulse Ox 94 12/19/18 19:09 Physical Exam: Physical Exam: Vitals signs as noted above General Appearance:Moderately built and nourished, no apparent distress Head: normocephalic, Atraumatic Eyes: normal inspection, EOMI Neck: supple, Trachea midline Respiratory/Chest: Coarse breath sounds, CTA Cardiovascular: S1, S2, + murmur Abdomen/GI:Soft, Non tender, Bowel sounds present Extremities/Musculoskelatal:normal inspection, + B/L LE edema Neurologic/Psych:AAOX3, grossly no focal neurological deficits Skin: normal color, warm Results & Data Laboratory Results Short CBC 12/19/18 Range/Units 07:53 WBC 6.49 (4.8-10.8) K/uL Hgb 10.9 L (12.0-16.0) g/dL Hct 34.3 L (37-47) % Plt Count 77 L (130-400) K/uL BMP 12/19/18 07:53 Sodium 134 L Potassium 4.1 Chloride 94 L Carbon Dioxide 27 BUN 30 H Creatinine 5.10 H* D Glucose 67 L Calcium 8.0 L _ (1) Hypothyroidism Hypothyroidism type: unspecified Qualified Code(s): E03.9 - Hypothyroidism, unspecified (2) GERD (gastroesophageal reflux disease) Esophagitis presence: without esophagitis Qualified Code(s): K21.9 - Gastro- esophageal reflux disease without esophagitis (3) Pulmonary embolism Pulmonary embolism type: unspecified Chronicity: unspecified Acute cor pulmonale presence: without acute cor pulmonale Qualified Code(s): I26.99 - Other pulmonary embolism without acute cor pulmonale
[2018-12-19] MEDS: SERTRALINE HCL 100 MG TABLET PO SCH (20:18)
[2018-12-19] MEDS: HYDROCODONE/ACETAMOPHEN 5/325MG TAB PO PRN (20:20)
[2018-12-19] MEDS ORDERED: INSULIN GLARGINE SOLOSTAR 100 UNITS/ML 3 ML PEN SC SCH (21:00)
[2018-12-20] MEDS: HYDROCODONE/ACETAMOPHEN 5/325MG TAB PO PRN ×2 (02:33→15:09)
[2018-12-20] MEDS: LEVOTHYROXINE SODIUM 75 MCG TABLET PO SCH (05:59)
--- NOTE | 2018-12-20 07:22 | Ultrasound Report ---
US venous doppler LE BI HISTORY: Pain. Edema. leg pain COMPARISON STUDY: None. FINDINGS: There is normal compressibility, flow, and augmentation within the bilateral lower extremit y deep venous systems. IMPRESSION: No DVT within the right or left lower extremity. The above report was generated using voice recognition software. It may contain grammatical, syntax or spelling errors. Electronically signed by: Ben Carranza M.D. 12/20/2018 7:20 AM
[2018-12-20] MEDS: AMIODARONE 200 MG TAB PO SCH (07:50)
[2018-12-20] MEDS: MIDODRINE HCL 10 MG TAB PO SCH ×2 (07:51→12:33)
[2018-12-20] MEDS: MULTIVITAMIN TAB PO SCH (07:51)
[2018-12-20] MEDS: RANITIDINE HCL SYRUP 150 MG/10 ML UDC PO SCH (07:52)
[2018-12-20] MEDS: ASPIRIN 81 MG ECTAB PO SCH (07:52)
[2018-12-20] MEDS: GABAPENTIN 100 MG CAP PO SCH (07:52)
[2018-12-20] MEDS: LACTOBACILLUS ACIDOPHILUS 1 GM PACK PO SCH ×2 (07:54→12:32)
[2018-12-20 08:35] LABS: Hematocrit (blood only) 34.3 % (37-47); Hemoglobin 10.9 g/dL (12.0-16.0); Mean Corpuscular Hgb Conc 31.8 g/dL (32-36); Mean Corpuscular Volume 99.4 fL (80-100); Mean Platelet Volume 12.8 fL (7.4-10.4); Platelet Count 92 K/uL (130-400); RDW Coefficient of Variation 19.1 % (11.5-14.5); RDW Standard Deviation 68.7 fL (36.4-46.3); Red Blood Count 3.45 M/uL (4.2-5.4)
[2018-12-20 08:43] LABS: BUN Creatinine Ratio 5.2 (10-20); Calcium 8.2 mg/dl (8.5-10.1); Est GFR (African American) 9.1; Est GFR (Non-African American) 7.8; Potassium 4.2 mmol/L (3.5-5.1)
[2018-12-20] MEDS: INSULIN ASPART 100 UNITS/ML 3 ML PEN SC SCH ×2 (08:43→12:31)
--- NOTE | 2018-12-20 09:49 | Pharmacy Report ---
Pharmacy Glycemic Short Note 2 - Date of Service December 20, 2018 - Glycemic Short BSG Results (Last 24 hours): 12/19/18 12/19/18 12/19/18 11:38 16:24 20:03 Glucose POC Glucose 122 H 80 126 H 12/20/18 12/20/18 12/20/18 07:43 07:44 07:49 Glucose 72 POC Glucose 67 L* 69 L* 12/20/18 08:03 Glucose POC Glucose 77 OUTPATIENT ANTIDIABETIC REGIMEN (PER CURRENT MED REC): * Lantus 22 units HS * Novolog 10 units w/ each meal * A1c = 6.7% 12/01/18 however result should be interpreted w/ caution given ESRD ; pt specific trends and BSG log more appropriate to evaluate control CURRENT REGIMEN: * Lantus 5 units HS on 12/19 * Novolog ACHS * Goal Range: 120-160mg/dL * Correction Factor: 30 mg/dL/unit * Carb Ratio: 1 unit per 15 grams CHO consumed ASSESSMENT: 12/20 * Patient only received 5 units of Lantus last night, resulting in hypoglycemia this AM, will place Lantus on hold for now to prevent further hypoglycemia. 12/19 * Ms. Branch received only 13 units of insulin yesterday, with 8 of this being basal * PO intake remains pretty minimal. She is scheduled to receive dialysis today. * Fasting BSG = 65 mg/dL; will change Lantus to qHS dosing since dose is so minimal and reduce dose as well * Postprandial BSGs are acceptable but current Novolog parameters are fairly aggressive for current basal requirements 12/18 * Patient received 15 units of insulin yesterday, 10 units basal, 5 units prandial * Patient's norepinephrine titrated off and transferred out of icu, dialysis scheduled TUTHFR * Fasting BSG trending down will reduce scale for this evening * Prandial BSGs within goal range 12/16 * Patient with hyperglycemic episode last evening (addition of a diet likely contributing), necessitating additional dose of lantus. BSGs much improved today. 5 units of lantus was ordered this morning and a lantus scale will be ordered for this evening. Will continue with q4 hour novolog at this time as previously mentioned stressors remaIn. 12/15 * Type 2 diabetic from [facility] admitted yesterday for mental status changes, hypotension, fluid overload and reported new infiltrate on CXR * She is managed w/ basal bolus regimen at [facility] and will continue the same here * She is familiar to the glycemic control service from prior admissions. Will use prior admission data to initiate insulin regimen here * Given current stressors: NE infusion, possible infxn - will change BSG frequency to Q 4 hrs and cover w/ Novolog. Will split Lantus dose BID for ease of titration * She remains NPO this AM, BSGs are at goal thus far - will continue with relatively low doses of Lantus for time being while relying of Q 4 hr correction should basal dose be inadequate PLAN FOR INPATIENT GLYCEMIC CONTROL: * Basal insulin - HOLD LANTUS * Bolus insulin * NovoLog per scale ACHS * Goal Range: Low 120 mg/dL - High 160 mg/dL * Correction Factor: 35 mg/dL/unit * Nutritional / Prandial insulin per carb ratio of 1 unit per 15 grams CHO consumed
[2018-12-20] MEDS: HEPARIN SOD 5,000 UNIT/0.5 ML VIAL SQ SCH (11:14)
[2018-12-20] MEDS: CALCIUM ACETATE 667 MG CAP PO SCH (12:33)
--- NOTE | 2018-12-20 15:11 | Hospitalist Progress Note ---
Date of Service December 20, 2018 Assessment & Plan (1) HCAP (healthcare-associated pneumonia): Volume overload Currently off Abx:: Was on Vancomycin and Zosyn Volume status managed with dialysis Blood Culture: No growth to date Appreciate ICU/Nephrology help Oxygen support as needed (2) Influenza A: Completed Tamiflu Course (3) Shock: Patient was sent from outpatient dialysis for evaluation of altered mental status Off pressors Continue midrodrine Plan to Hold Amiodarone on days of Dialysis: Discussed with Cardiology --agreed with the plan (4) Nonischemic cardiomyopathy: Elevated Troponin likely secondary to demand ischemia EKG demonstrates paced rhythm Patient denies chest pain Continue dialysis as per Nephrology (5) Acute on chronic right-sided congestive heart failure: Volume status managed with dialysis (6) ESRD (end stage renal disease) on dialysis: On dialysis Sunday/ / Sunday Appreciate Nephrology help (7) Elevated troponin: Elevated Troponin likely secondary to demand ischemia monitor (8) Elevated liver enzymes: Recent CT ABD suggestive of mild cirrhotic liver disease Transminitis on this admission likely due to volume congestion Needs FU with GI as outpatient (9) DM type 2 (diabetes mellitus, type 2): Last Hgb A1c 6.7 11/2018 Pharmacy consult for glycemic management Continue Novolog, Lantus (10) Paroxysmal atrial fibrillation: Rate controlled On amiodarone Not on anticoagulation Re: H/O hemorrhagic pericarditis and tamponade Plan to hold Amiodarone during days of Dialysis 2/2 significant Hypotension ( Hold on , Sat Discussed with Cardiology (11) QT prolongation: Avoid QTC prolonging agents Monitor with EKG (12) Wound of left ankle: Completed Abx course Wound Care (13) Hypothyroidism: Continue levothyroxine (14) Symptomatic bradycardia: Monitor (15) Pacemaker: No acute issues (16) Anxiety: (17) Depression: hold clonazepam--Plan to discontinue as able DC citalopram (was being transitioned to sertraline alone) continue sertraline (18) TIA (transient ischemic attack): Continue aspirin, statin (19) GERD (gastroesophageal reflux disease): Continue Ranitidine (20) Pulmonary embolism: as per history Not on long-term anticoagulation candidate due to H/O hemorrhagic pericarditis/ tamponade (21) DVT (deep venous thrombosis): as per history Not on long-term anticoagulation candidate due to H/O hemorrhagic pericarditis/ tamponade (22) S/P IVC filter: History of IVC filter (23) [place] treated with BiPAP: Non complaint Continue BiPAP QHS (24) DVT prophylaxis: Heparin SQ Code Status: DNR Disposition: Plan to discharge to SNF today Subjective Patient is seen and examined at bedside Doing much better today Reports being tired Denies leg pain today Discussed with Nephrology today Denies chest pain, dyspnea, dizziness, abd pain Discussed with family as well Physical Exam 2 Vital Signs (Past 24 Hours): Last Vital Signs Temp 36.5 C 12/20/18 11:17 Pulse 69 12/20/18 11:17 Resp 16 12/20/18 11:17 BP 93/54 L 12/20/18 11:17 Pulse Ox 99 12/20/18 11:17 Physical Exam: Physical Exam: Vitals signs as noted above General Appearance:Moderately built and nourished, no apparent distress Head: normocephalic, Atraumatic Eyes: normal inspection, EOMI Neck: supple, Trachea midline Respiratory/Chest: Coarse breath sounds, Minimal crackles Cardiovascular: S1, S2, + murmur Abdomen/GI:Soft, Non tender, Bowel sounds present Extremities/Musculoskelatal:normal inspection, + B/L LE edema Neurologic/Psych:AAOX3, grossly no focal neurological deficits Skin: normal color, warm Results & Data Laboratory Results Short CBC 12/20/18 Range/Units 07:49 WBC 5.70 (4.8-10.8) K/uL Hgb 10.9 L (12.0-16.0) g/dL Hct 34.3 L (37-47) % Plt Count 92 L (130-400) K/uL BMP 12/20/18 07:49 Sodium 133 L Potassium 4.2 Chloride 95 L Carbon Dioxide 28 BUN 26 H Creatinine 5.01 H* Glucose 72 Calcium 8.2 L _ (1) Hypothyroidism Hypothyroidism type: unspecified Qualified Code(s): E03.9 - Hypothyroidism, unspecified (2) GERD (gastroesophageal reflux disease) Esophagitis presence: without esophagitis Qualified Code(s): K21.9 - Gastro- esophageal reflux disease without esophagitis (3) Pulmonary embolism Pulmonary embolism type: unspecified Chronicity: unspecified Acute cor pulmonale presence: without acute cor pulmonale Qualified Code(s): I26.99 - Other pulmonary embolism without acute cor pulmonale
--- NOTE | 2018-12-20 15:22 | Discharge Summary ---
Date of Service December 20, 2018 Admission HPI Per Admitting Provider 73-year-old female who presents to the ED with altered mental status. History is currently unobtainable from her. Patient was recently admitted to [facility] 11/30 through 12/04 for acute on chronic right-sided CHF and left ankle wound. Patient was discharged on a course of Augmentin. She was discharged to [facility] for rehab. Per the staff at [facility], patient's mental status has been waxing and waning. They report her last dialysis treatment was on . This morning, she was somewhat lethargic and was sent to dialysis. While at dialysis, patient was noted to have altered mental status and was sent to the ED for further evaluation. In the ED, patient was minimally responsive and hypotensive. She tested positive for influenza A and CXR is showing right basilar consolidation. She also appears to be very volume overloaded. In the ED, she was given IVF, IV Vanco, IV Zosyn, p.o. Tamiflu. After my evaluation of the patient, central line was placed and patient was started on Levophed. Admission Exam Per Admitting Provider Constitutional: WD/WN, vitals as above + acute distress (Minimally responsive to loud verbal and tactile stimuli) Eyes: PERRL, conjunctivae normal, anicteric sclerae (Pupils small however equal, round, and reactive to light) ENMT: external ear and nose normal, oropharynx normal Respiratory: + labored breathing Auscultation: + crackles Audible moist breath sounds present Cardiovascular: Rate/Rhythm: regular rate and regular rhythm Vessels: normal peripheral pulses Extremities: + edema Gastrointestinal (Abdomen): normal bowel sounds, soft, nontender, no hepatosplenomegaly Musculoskeletal: Extremities: no cyanosis and no clubbing Motor strength unable to be tested at this time Skin: no rashes, warm and dry Wound noted to left lateral ankle, healing well, no drainage Healing wound noted to left heel, dried/scabbed Neurologic: + not awake Cranial Nerves: normal facial strength Patient minimally responsive to loud verbal and tactile stimuli. Full neurologic exam unable to be completed. Psychiatric: Orientation: + not alert and + not oriented x 3 Principal Diagnosis Discharge Information Discharge Diagnosis Pneumonia, Influenza, Acute on chronic right- sided congestive heart failure, Transminitis Discharge Goals Decrease discomfort,Improve function,Improve disease control Discharge Activity Limitations Resume your previous activity Discharge Data Allergies Allergy/AdvReac Type Severity Reaction Status Date / Time Iodinated Contrast- Oral and Allergy Mild "Contrast Verified 12/14/18 12:44 IV Dye Media" -- unknown rxn adhesive Allergy Unknown "Tape" -- Verified 12/14/18 12:44 unknown rxn morphine Allergy Unknown UNKNOWN Verified 12/14/18 12:44 warfarin Allergy Unknown HYPERSENSIT Verified 12/14/18 12:44 IVITY/BLEED ING tomato AdvReac Intermediate GI SYMPTOMS Verified 12/14/18 12:44 Consultations 12/14/18 14:02 ED Decision to Admit Stat 12/14/18 14:43 Consult Nephrology Stat 12/14/18 17:46 Consult Case Management - Discharge Planning Routine Consult Programs Manager Routine Consult Nephrology Routine 12/17/18 10:11 Consult Palliative Care Routine Procedures Performed CXR: 1. Cardiomegaly and cardiac pacemaker with evidence of congestive failure. 2. There is developing airspace consolidation at the right lung base. Correlate clinically for evidence of pneumonia/aspiration pneumonitis. Radiographic follow -up to resolution is recommended. 3. Suspect trace pleural effusions. Venous Doppler; No DVT within the right or left lower extremity. Ordered Studies 12/20/18 05:41 US venous doppler LE Urgent Hospital Course (1) HCAP (healthcare-associated pneumonia): Volume overload Currently off Abx:: Was on Vancomycin and Zosyn Volume status managed with dialysis Blood Culture: No growth to date Appreciate ICU/Nephrology help Oxygen support as needed (2) Influenza A: Completed Tamiflu Course (3) Shock: Patient was sent from outpatient dialysis for evaluation of altered mental status Off pressors Continue midrodrine Plan to Hold Amiodarone on days of Dialysis: Discussed with Cardiology --agreed with the plan (4) Nonischemic cardiomyopathy: Elevated Troponin likely secondary to demand ischemia EKG demonstrates paced rhythm Patient denies chest pain Continue dialysis as per Nephrology (5) Acute on chronic right-sided congestive heart failure: Volume status managed with dialysis (6) ESRD (end stage renal disease) on dialysis: On dialysis Sunday/ / Sunday Appreciate Nephrology help (7) Elevated troponin: Elevated Troponin likely secondary to demand ischemia monitor (8) Elevated liver enzymes: Recent CT ABD suggestive of mild cirrhotic liver disease Transminitis on this admission likely due to volume congestion Needs FU with GI as outpatient (9) DM type 2 (diabetes mellitus, type 2): Last Hgb A1c 6.7 11/2018 Pharmacy consult for glycemic management Continue Shakira Quiroz (10) Paroxysmal atrial fibrillation: Rate controlled On amiodarone Not on anticoagulation Re: H/O hemorrhagic pericarditis and tamponade Plan to hold Amiodarone during days of Dialysis 2/2 significant Hypotension ( Hold on Tue, Thur, Sat Discussed with Cardiology (11) QT prolongation: Avoid QTC prolonging agents Monitor with EKG (12) Wound of left ankle: Completed Abx course Wound Care (13) Hypothyroidism: Continue levothyroxine (14) Symptomatic bradycardia: Monitor (15) Pacemaker: No acute issues (16) Anxiety: (17) Depression: hold clonazepam--Plan to discontinue as able DC citalopram (was being transitioned to sertraline alone) continue sertraline (18) TIA (transient ischemic attack): Continue aspirin, statin (19) GERD (gastroesophageal reflux disease): Continue Ranitidine (20) Pulmonary embolism: as per history Not on long-term anticoagulation candidate due to H/O hemorrhagic pericarditis/ tamponade (21) DVT (deep venous thrombosis): as per history Not on long-term anticoagulation candidate due to H/O hemorrhagic pericarditis/ tamponade (22) S/P IVC filter: History of IVC filter (23) EVERTON treated with BiPAP: Non complaint Continue BiPAP QHS (24) DVT prophylaxis: Heparin SQ Code Status: DNR Disposition: Plan to discharge to SNF today Total Time Total Time Spent Total Time Spent (In Minutes): 42 MINUTES Total Time Includes: Examination of the Patient, Discharge Planning, Medication Reconciliation, Communication With Other Providers and Other Discharge Plan Discharge Items Patient Disposition: Transfer [facility] Reason For Visit: FLU, PNEUMONIA, HYPOTENSION Discharge Diagnosis: Pneumonia, Influenza, Acute on chronic right-sided congestive heart failure, Transminitis Discharge Goals: Decrease discomfort, Improve disease control and Improve function Activity: Resume your previous activity Exercise/Sports: Gradually increase as tolerated Non-emergency contact: Primary Care Provider, Specialist, Quality Assurance Advisor and Cant Hooker Call non-emergency contact if: you have any medication questions, your symptoms worsen, your pain is not controlled, your pain is worsening, your pain is unusual for you, your pain is concerning for you and you have a fever Diet: Carb Consistent or DM2 and Dialysis Renal Addtl Provider Instructions: Follow up with your PCP in 1 week Follow up with your Cant Hooker in 1-2 weeks Follow up with your Quality Assurance Advisor in 2 weeks Follow up with your Urban Design Consultant in 2 weeks Follow up with wound clinic as advised Seek immediate medical attention if your symptoms reoccur or worsen Get repeat liver function tests in 2 weeks and follow up with your Urban Design Consultant YOUR LANTUS IS ON HOLD YOU HAD HYPOGLYCEMIA EPISODES WHILE IN HOSPITAL. PLEASE DISCUSS WITH YOUR PHYSICIAN REGARDING FURTHER LANTUS DOSING. Prescriptions: New midodrine 10 mg Tablet 10 mg PO TID@0800,1200,1700 30 Days Qty: 90 RF: 0 amiodarone 200 mg Tablet 200 mg PO SuMoWeFr@0900 30 Days Qty: 30 RF: 0 hydrocodone-acetaminophen 5-325 mg Tablet 1 tab PO Q6H PRN (Reason: Pain) 3 Days Qty: 6 RF: 0 Continue albuterol sulfate [Ventolin HFA] 90 mcg/actuation Hfa Aerosol Inhaler 2 puff INHALATION Q4H PRN (Reason: Wheezing) RF: 0 ondansetron HCl 4 mg Tablet 4 mg PO Q6H PRN (Reason: Nausea And Vomiting) RF: 0 guaifenesin 400 mg Tablet 400 mg PO Q4H PRN (Reason: Cough) RF: 0 acetaminophen 325 mg Tablet 650 mg PO Q6H PRN (Reason: Fever Or Pain) RF: 0 aspirin 81 mg Tablet,Delayed Release (Dr/Ec) 81 mg PO QAM RF: 0 amoxicillin-pot clavulanate 500-125 mg Tablet 1 tab PO DAILY Qty: 13 RF: 0 loperamide [Imodium A-D] 2 mg Capsule 2 mg PO TUTHSA RF: 0 ranitidine HCl 75 mg Tablet 0.5 tab PO DAILY RF: 0 insulin aspart U-100 [Novolog U-100 Insulin aspart] 100 unit/mL Solution 10 unit SUBCUT TIDM RF: 0 bisacodyl [Dulcolax (bisacodyl)] 10 mg Suppository 10 mg TX DAILY PRN (Reason: Constipation) RF: 0 sodium phosphates [Fleet Enema] 19-7 gram/118 mL Enema 118 ml TX DAILY PRN (Reason: Constipation) RF: 0 fluconazole 40 mg/mL Suspension For Reconstitution 100 mg PO DAILY RF: 0 clonazepam 0.5 mg Tablet 0.5 mg PO TUTHSA 3 Days Qty: 5 RF: 0 fentanyl 25 mcg/hr Patch 72 Hour 1 patch TRANSDERMAL Q72H 3 Days Qty: 1 RF: 0 multivitamin Tablet 1 tab PO QAM RF: 0 atorvastatin 40 mg tablet 40 mg PO HS RF: 0 sertraline 100 mg tablet 100 mg PO HS RF: 0 levothyroxine 75 mcg tablet 75 mcg PO QAM RF: 0 nitroglycerin [Nitrostat] 0.4 mg Tablet, Sublingual 0.4 mg Sublingual DIRECTED PRN (Reason: Chest Pain) RF: 0 gabapentin 100 mg capsule 200 mg PO AMHS RF: 0 calcium acetate 667 mg capsule 667 mg PO DAILY RF: 0 clonazepam 0.5 mg Tablet 0.5 mg PO HS RF: 0 Discontinued midodrine 10 mg tablet 10 mg PO MOWEFR RF: 0 citalopram 10 mg Tablet 10 mg PO DAILY RF: 0 midodrine 10 mg Tablet 20 mg PO TUTHSA RF: 0 insulin glargine [Lantus Solostar U-100 Insulin] 100 unit/mL (3 mL) Insulin Pen 22 unit SUBCUT HS RF: 0 amiodarone 200 mg tablet 200 mg PO QAM RF: 0 Stand-Alone Forms: [facility] Discharge Orders: Discharge Order (Routine); Ordered 12/20/18 Ordered By: Juan R Crews Skilled Items Patient informed of condition?: Yes DNR: Yes Discharge Level of Care: Skilled Communicable Disease: Yes Discharge Prognosis: Stable Admission Data Admit Date/Time: 12/14/18 14:57 Attending Provider: Juan R Crews Admit Provider: Misael Lieberman Primary Care Provider: Subhash Mo Other Providers: Rajan Hale ; Misael Lieberman ; Tommy Barnes ; Vanesa Lazcano Service: Telemetry Other Interventions: Discharge Summary Assessment (RN) Last Done: 12/20/18 17:20 Pending Studies at Discharge: No DC Date/Time DO NOT enter until pt leaves facility: 12/20/18 16:40
--- NOTE | 2018-12-20 16:13 | Palliative Care Progress Note ---
Date of Service December 20, 2018 Assessment & Plan (1) Goals of care, counseling/discussion: -73 year old female with PMH of ESRD on HD, DM2, PAF, symptomatic bradycardia with pacemaker, EVERTON with bipap use, hx of TIA, hx of PE, GERD, anxiety, and depression presented with respiratory failure and septic shock in the setting of influenza/HCAP and volume overload. She was in hospital from 11/30 -12/04 with acute on chronic right sided heart failure and left ankle wound. She was discharged home on Augmentin. She reportedly was not doing well and thought to be unsafe to be home alone by home health, so she was sent to [facility] for rehab. Her mental status was apparently waxing/waning at rehab. She was at dialysis when she was found to be minimally responsive and was sent to the ED. In ED, she was lethargic/unresponsive and hypotensive. Central line was placed, levophed started. She was found to be positive for Influenza A, CXR showed volume overload and right basilar consolidation. She was given IVF, vanco , zosyn and Tamiflu. Patient has now completed her course of IV antibiotics as well as a course of Tamiflu-blood pressures within acceptable limits on 3 times daily midodrine. Goals of care discussed in consultation as well as 3 stated today that she plans to return to [facility] and wishes to continue her dialysis. Patient understands that if at any time she decided to stop dialysis that this would lead to her demise. (2) Anxiety: Patient transitioned from citalopram to Zoloft (3) Influenza A: Completed course of Tamiflu (4) HCAP (healthcare-associated pneumonia): Completed course of IV antibiotics (5) Depression: Transition to Zoloft (6) Paroxysmal atrial fibrillation: Rate controlled with amiodarone (7) Acute on chronic right-sided congestive heart failure: Improved (8) EVERTON treated with BiPAP: Continue BiPAP nightly and O2 at 2 L (9) ESRD (end stage renal disease) on dialysis: Patient wishes to continue hemodialysis Subjective Patient awake alert, no acute distress. Patient reports feeling cold-blankets reposition, temp 36.5. Patient continues to have thick cough, and mild shortness of breath controlled with O2 at 2 L nasal cannula. Patient has completed her course of IV antibiotics for pneumonia as well as a course of Tamiflu for flu A. Patient restated that her goals are to continue her dialysis and return to [facility]. Patient has been successively changed from her citalopram to Zoloft-she is currently on Zoloft 100 mg nightly. Physical Exam 2 Vital Signs (Past 24 Hours): Last Vital Signs Temp 36.5 C 12/20/18 11:17 Pulse 69 12/20/18 11:17 Resp 16 12/20/18 11:17 BP 93/54 L 12/20/18 11:17 Pulse Ox 99 12/20/18 11:17 Physical Exam: PE: No acute distress HEENT: EOMI Respiratory: Stable on room air, coarse breath sounds bilaterally CV: Regular rate, positive edema Abdomen: Obese, soft, nontender Neuro: Intermittent confusion Time Spent Attending Total time spent 25 minutes with greater than 50% of the time spent at bedside assessing patient and agree addressing goals of care.
--- NOTE | 2018-12-20 19:21 | Nephrology Progress Note ---
Date of Service December 20, 2018 Assessment & Plan (1) ESRD (end stage renal disease) on dialysis: Patient with ESRD on dialysis Sunday. She was admitted with acute respiratory distress and shock. Patient had dialysis yesterday. HD terminated after 2hrs due excessive pain in the legs. UF 700ml. Next HD will be Sunday as an outpatient. Seen palliative care input. Patient wants to continue HD for now. Will reduce amiodarone to 3 times a week MWF. Cardiology agreeable. (2) Sepsis: Patient with sepsis due to influenza pneumonia. She completed Tamiflu and Zosyn. Continue midodrine 10mg po tid. (3) Fluid overload: Patient with volume overload. Chest x-ray showing pulmonary vascular congestion. We will continue fluid removal with dialysis. Oxygenation is stable. (4) Anemia of renal disease: Hemoglobin of 10.9 which is at target. No need for JULIOCESAR. Subjective ESRD patient seen in follow up for volume overload and hypotension. She had dialysis yesterday. She complains of pain in the lower extremities. Dialysis wasterminated after 2hrs due to worsening pain in the legs and not settling down. Constitutional: + weakness Cardiovascular: + dyspnea on exertion; no dyspnea at rest Gastrointestinal: + constipation Physical Exam 2 Vital Signs (Past 24 Hours): Last Vital Signs Temp 36.5 C 12/20/18 17:20 Pulse 70 12/20/18 17:20 Resp 16 12/20/18 17:20 BP 121/67 12/20/18 17:20 Pulse Ox 99 12/20/18 17:20 Physical Exam: General exam: Appears comfortable, no acute distress. she was sitting in chair HEENT: Pupils are equal and reactive to light Neck: No JVD, neck is supple trachea is midline Respiratory system: Clear breath sounds bilaterally. Gastrointestinal: Abdomen is soft, non distended, non tender, bowel sounds are present CVS: Regular rate and rhythm. No murmurs, rubs or gallops Musculoskeletal: No joint or muscle tenderness Extremities: Non tender, 1+ edema, peripheral pulses are present Neuro: Oriented, no tremors, no focal neurological deficits Skin: No rashes access: AVF Results & Data Laboratory Results k 4.2, Na 133 _ (1) Sepsis Sepsis type: sepsis due to unspecified organism Qualified Code(s): A41.9 - Sepsis, unspecified organism
[2018-12-22] MEDS ORDERED: AMIODARONE 200 MG TAB PO SCH (09:00)
== END 2018-12-20 16:40 ==
LOC: ED 11:45 → 1E 14:57 → SUATTDRO 14:57 → 1E 16:38 → 2W 12-18 11:07